=== PATIENT | female | born 1945 | race Caucasian/White ===

== ENCOUNTER 2019-01-19 11:21 | Day surgery (SDC) | payer MEDICARE ==
[~2019-01-19 11:21] MED LIST: ALBUTEROL NEB (CONC) 2.5 MG/0.5 ML INHALATION ONE; LACTATED RINGERS 1,000 ML IV SCH; LIDOCAINE 2% (PF) 20 MG/ML 5 ML VIAL INHALATION ONE; LIDOCAINE VISCOUS 300 MG/15 ML CUP MUCOUS MEM ONE; SODIUM CHLORIDE 0.9% 1,000 ML IV SCH
[2019-01-19 11:43] VITALS: TEMP 97.6
[2019-01-19] MEDS ORDERED: LIDOCAINE 1% 20 ML VIAL (10MG/ML) FOR IV START INTRADERMA ONE (11:48)
[2019-01-19] MEDS ORDERED: LACTATED RINGERS 1,000 ML IV ONE (11:48)
[2019-01-19 11:51] LABS: Glucose,Whole Blood 89 mg/dL (75-99)
[2019-01-19] MEDS ORDERED: LIDOCAINE 1% INJ 10MG/ML (20 ML MDV) ONE (12:49)
[2019-01-19] MEDS ORDERED: fentaNYL (PF) 50 MCG/ML 2 ML AMP ONE (12:49)
[2019-01-19] MEDS ORDERED: PROPOFOL 10 MG/ML 20 ML VIAL IV ONE (12:49)
[2019-01-19] MEDS ORDERED: LIDOCAINE 2% INJ 20 MG/ML INTRATRACH ONE (13:09)
--- NOTE | 2019-01-19 13:16 | P.PCN ---
Date of Procedure: 01/19/19 Preoperative Diagnosis: Shortness of breath, persistent bronchospasm and wheeze, rule out underlying lung infection/tracheal bronchitis Postoperative Diagnosis: 1 Bronchitis involving the lingular segment and the left upper lobe segments 2 tracheobronchomalacia Procedure(s) Performed: Flexible bronchoscopy, bronchioloalveolar lavage of the left upper lobe/lingular segment Anesthesia: SATISH Surgeon: Meme Mendiola Pathology: other Condition: stable Disposition: floor Description of Procedure: This procedure was done and the endoscopy room. The patient was sedated with a combination of propofol and Versed. After achieving adequate sedation flexible bronchoscope was inserted through the right nostril due to advanced into the upper airway. Examination of the posterior oropharynx, larynx epiglottis and vocal cord was all within normal limits. The vocal cords were anesthetized using 1% lidocaine and following that the bronchoscope was advanced with Doppler trachea. Examination tracheal bronchial tree was done. He was a component of severe tracheal bronchomalacia throughout the patient's airway more so in the tracheal wall and to lesser extent in the bilateral mainstem bronchi and they segment of the lower lobes. Note that the trachea was within normal limits other than severe tracheal bronchomalacia. An anatomic variation was encountered. There was no right mainstem bronchus. The right upper lobe originated from the lateral tracheal wall and was trifurcated. Then there was a bronchus intermedius and the right middle lobe and the right lower lobe was inspected and the various segments are patent and within normal limits. There are some looseness for secretions. The bronchoscope was then was moved to the left lung and the left mainstem bronchus was inspected. There was some rest or secretions and most of the. Material was originating from the lingular segment of the left upper lobe. The lingular segments are quite inflamed and erythematous. Inspection of the left upper lobe apical posterior and anterior segments was done and then the lingular segment was done. The bronchioloalveolar lavage of the lingula superior segment was done without a total of 60 mL of fluid was infused and 25 feet was suctioned back. Exam of the left lower lobe was within normal limits and they segment of the left lower lobe were all inspected. At the completion of the procedure, therapeutic it was suctioning was done and the bronchoscope was removed. The patient was transfe rred recovery in stable condition. The bronchioloalveolar lavage collected from the lingula will be sent for microbial analysis. No bedside complications. The patient tolerated the procedure well.
[2019-01-19 13:56] VITALS: BP 146/64; PULSE 87; RESP 16
== END 2019-01-19 14:28 | disposition home or self-care (01) ==
LOC: ORWHC2ENDO 11:21
PROVIDERS: ATTEND Internal Medicine Critical Care Medicine
DX: J39.8 Other specified diseases of upper respiratory tract (principal); J20.8 Acute bronchitis due to other specified organisms; J45.50 Severe persistent asthma, uncomplicated; J96.11 Chronic respiratory failure with hypoxia; J44.1 Chronic obstructive pulmonary disease with (acute) exacerbation; I13.0 Hypertensive heart and chronic kidney disease with heart failure and stage 1 through stage 4 chronic kidney disease, or unspecified chronic kidney disease; E11.22 Type 2 diabetes mellitus with diabetic chronic kidney disease; E03.9 Hypothyroidism, unspecified; N18.3 Chronic kidney disease, stage 3 (moderate); M81.0 Age-related osteoporosis without current pathological fracture; I48.91 Unspecified atrial fibrillation; I50.9 Heart failure, unspecified; H91.90 Unspecified hearing loss, unspecified ear; F41.9 Anxiety disorder, unspecified; F41.0 Panic disorder [episodic paroxysmal anxiety]; E78.5 Hyperlipidemia, unspecified; D64.9 Anemia, unspecified; E66.01 Morbid (severe) obesity due to excess calories; Z91.012 Allergy to eggs; Z88.0 Allergy status to penicillin; Z88.2 Allergy status to sulfonamides; Z91.040 Latex allergy status; Z91.041 Radiographic dye allergy status; Z87.01 Personal history of pneumonia (recurrent); Z79.890 Hormone replacement therapy; Z79.899 Other long term (current) drug therapy; Z90.710 Acquired absence of both cervix and uterus; Z68.37 Body mass index [BMI] 37.0-37.9, adult; Z90.49 Acquired absence of other specified parts of digestive tract; Z79.4 Long term (current) use of insulin
CPT/HCPCS: 94640; 87798 ×3; 87496; 87498; 87529; 87252; 87502; 87634; 87070; 87205; 87116; 87102; 87077; 87186; 87206; 31645; 31624; J2001 ×3; J3010; J2704

== ENCOUNTER 2019-03-19 11:01 | Day surgery (SDC) | payer MEDICARE ==
[2019-03-16 08:38] VITALS: BMI 38.6
[2019-03-19 11:55] VITALS: RESP 16; TEMP 97.8
[2019-03-19 12:06] LABS: Glucose,Whole Blood 75 mg/dL (75-99)
[2019-03-19] MEDS ORDERED: LIDOCAINE 2% INJ 20 MG/ML INTRATRACH ONE ×2 (12:22→12:49)
[2019-03-19] MEDS ORDERED: LIDOCAINE 1% INJ 10MG/ML (20 ML MDV) ONE (12:28)
[2019-03-19] MEDS ORDERED: PROPOFOL 10 MG/ML 20 ML VIAL IV ONE (12:28)
--- NOTE | 2019-03-19 12:58 | P.PCN ---
Date of Procedure: 03/19/19 Preoperative Diagnosis: pseudomonal pneumonia/tracheal bronchitis Postoperative Diagnosis: Pseudomonal pneumonia/tracheal bronchitis Procedure(s) Performed: Flexible bronchoscopy, therapeutic airway suctioning, bronchial lavage of the right middle lobe Anesthesia: MAC Surgeon: Meme Mendiola Estimated Blood Loss (ml): 0 Pathology: other Condition: stable Disposition: same day Operative Findings: This procedure was done in the endoscopy suite. The procedure including the po tential complication was explained to the patient length. A timeout was obtained. After achieving adequate sedation, the flexible bronchoscope was introduced through the right nostril was advanced into the upper airway. Examination of the posterior oropharynx, larynx, epiglottis, vallecula, arytenoids and the vocal cords were all within normal limits. Some limited amount of loose rest or secretions were noted and were suctioned out. A total of 2 mL of 1% lidocaine was applied to the vocal cords, and following that the bronchoscope was advanced into the upper trachea. Examination of the tracheal bronchial tree was done. There was a moderate degree of check of bronchomalacia encountered throughout the examination. There was also some sick rest or secretions creamy beige in color occupying the distal trachea and various segments of the lower lobes bilaterally and some in the right middle lobe and in the lingular segments. The underlying bronchial mucosa was quite inflamed and erythematous. No foreign bodies. No endobronchial tumors or lesions. Therapeutic airway suctioning was done. Following that, the bronchoscope was wedged into the right middle lobe and the bronchioloalveolar lavage was done. A total of 40 mL of fluid was infused and 15 mL of fluid was aspirated without any major difficulties. By the completion of the procedure, I performed a therapeutic airway suctioning with all of the respiratory secretions were suctioned out without any major difficulties. The bronchoscope was gently removed out of the airway. The patient tolerated the procedure well maintaining a pulse oxing above 90% throughout the procedure. No significant coughing was encountered. The patient was transferred recovery in stable condition pending further results.
[2019-03-19 13:25] VITALS: BP 177/89; PULSE 86
== END 2019-03-19 14:17 | disposition home or self-care (01) ==
LOC: ORWHC2ENDO 11:01
PROVIDERS: ATTEND Internal Medicine Critical Care Medicine
DX: J15.1 Pneumonia due to Pseudomonas (principal); J40 Bronchitis, not specified as acute or chronic; E11.22 Type 2 diabetes mellitus with diabetic chronic kidney disease; I13.0 Hypertensive heart and chronic kidney disease with heart failure and stage 1 through stage 4 chronic kidney disease, or unspecified chronic kidney disease; N18.3 Chronic kidney disease, stage 3 (moderate); I50.9 Heart failure, unspecified; J96.11 Chronic respiratory failure with hypoxia; J44.9 Chronic obstructive pulmonary disease, unspecified; I48.91 Unspecified atrial fibrillation; F41.9 Anxiety disorder, unspecified; H91.90 Unspecified hearing loss, unspecified ear; E66.01 Morbid (severe) obesity due to excess calories; D64.9 Anemia, unspecified; M81.0 Age-related osteoporosis without current pathological fracture; E78.5 Hyperlipidemia, unspecified; E03.9 Hypothyroidism, unspecified; Z99.81 Dependence on supplemental oxygen; Z79.899 Other long term (current) drug therapy; Z79.890 Hormone replacement therapy; Z79.4 Long term (current) use of insulin; Z79.01 Long term (current) use of anticoagulants; Z88.0 Allergy status to penicillin; Z91.041 Radiographic dye allergy status; Z91.040 Latex allergy status; Z88.2 Allergy status to sulfonamides; Z91.012 Allergy to eggs; Z90.49 Acquired absence of other specified parts of digestive tract; Z68.38 Body mass index [BMI] 38.0-38.9, adult; Z82.49 Family history of ischemic heart disease and other diseases of the circulatory system; Z83.3 Family history of diabetes mellitus
CPT/HCPCS: 94640; 87070; 87205; 31624; J2001 ×3; J2704; 87077; 87186

== ENCOUNTER 2019-03-23 11:35 | Day surgery (SDC) | payer MEDICARE ==
[2019-03-23 12:27] VITALS: TEMP 98.1
[2019-03-23 12:35] LABS: Anisocytosis Slight; Basophils % (A) 1 %; Eosinophils # (A) 0.2 k/uL (0-0.7); Eosinophils % (A) 4 %; HCT 31.3 % (34.0-46.0); HGB 9.8 gm/dL (11.4-16.0); Hypochromasia Slight; Lymphocytes # (A) 1.6 k/uL (1.0-4.8); Lymphocytes % (A) 38 %; MCH 25.3 pg (25.0-35.0); MCHC 31.3 g/dL (31.0-37.0); MCV 80.9 fL (80.0-100.0); Mean Platelet Volume 7.2; Microcytosis Slight; Monocytes # (A) 0.3 k/uL (0-1.0); Monocytes % (A) 6 %; Neutrophils # (A) 2.1 k/uL (1.3-7.7); Neutrophils % (A) 49 %; Platelet Count 176 k/uL (150-450); RBC 3.87 m/uL (3.80-5.40); RDW 17.2 % (11.5-15.5); WBC 4.3 k/uL (3.8-10.6)
[2019-03-23 12:42] LABS: INR 1.1 (<1.2)
[2019-03-23] MEDS ORDERED: LIDOCAINE 1% INJ 10MG/ML (20 ML MDV) SQ ONE (13:22)
[2019-03-23 13:59] VITALS: BP 162/72; PULSE 96; RESP 16
--- NOTE | 2019-03-23 15:14 | IR ---
EXAMINATION TYPE: IR cvc insert >=5 years DATE OF EXAM: 03/23/2019 COMPARISON: NONE CLINICAL HISTORY: Infection Needs long-term intravenous access for antibiotics. PROCEDURE: Hand hygiene obtained with soap and water and alcohol-based hand rub. After informed consent, the skin overlying the left brachial vein was localized with ultrasound and n oted to be compressible and patent. An ultrasound image was obtained and submitted on the patient's chart. The overlying skin was prepped and draped and Lidocaine was used for local anesthesia. A ski n cari was made with a scalpel. Access was gained to the vein under ultrasound guidance with a 21 ga uge needle and a 0.018 inch wire was advanced. Access site was dilated with Peel-Away sheath and cat heter tailored to the appropriate length and advanced such that the distal tip is at the cavoatrial j unction. Spot image was obtained verifying placement. Catheter was fixed to the skin and a sterile dressing was placed following hemostasis. Catheter was aspirated and flushed with saline. Patient w as discharged in stable condition without complication.Maximal barrier technique is utilized. Ultras ound image is documented on the chart. Ultrasound used with sterile technique. Fluoro time and fluoroscopic images submitted to document procedure: 63 intraoperative images, 0.2 mi nutes fluoroscopy time IMPRESSION: STATUS POST ULTRASOUND AND FLUOROSCOPIC GUIDED PICC LINE PLACEMENT, READY FOR USE. THIS PROCEDURE WAS PERFORMED BY THE UNDERSIGNED.
== END 2019-03-23 14:23 | disposition home health service (06) ==
LOC: CATHCVL 11:35
PROVIDERS: ATTEND Radiology Diagnostic Radiology
DX: B96.5 Pseudomonas (aeruginosa) (mallei) (pseudomallei) as the cause of diseases classified elsewhere (principal); J44.1 Chronic obstructive pulmonary disease with (acute) exacerbation; J96.11 Chronic respiratory failure with hypoxia; E11.65 Type 2 diabetes mellitus with hyperglycemia; E11.22 Type 2 diabetes mellitus with diabetic chronic kidney disease; M18.0 Bilateral primary osteoarthritis of first carpometacarpal joints; E78.5 Hyperlipidemia, unspecified; E03.9 Hypothyroidism, unspecified; D64.9 Anemia, unspecified; R60.0 Localized edema; F41.9 Anxiety disorder, unspecified; N18.3 Chronic kidney disease, stage 3 (moderate); I50.9 Heart failure, unspecified; E66.9 Obesity, unspecified; Z68.36 Body mass index [BMI] 36.0-36.9, adult; Z91.012 Allergy to eggs; Z88.0 Allergy status to penicillin; Z88.2 Allergy status to sulfonamides; Z79.899 Other long term (current) drug therapy; Z79.83 Long term (current) use of bisphosphonates; Z79.51 Long term (current) use of inhaled steroids; Z79.4 Long term (current) use of insulin; Z79.890 Hormone replacement therapy; Z79.891 Long term (current) use of opiate analgesic; Z79.01 Long term (current) use of anticoagulants; Z90.49 Acquired absence of other specified parts of digestive tract; Z98.890 Other specified postprocedural states; Z99.81 Dependence on supplemental oxygen; Z82.49 Family history of ischemic heart disease and other diseases of the circulatory system; Z83.3 Family history of diabetes mellitus
CPT/HCPCS: 36573; 80051; 82565; 84520; 85025; 85610; C1751; C1769; J2001

== ENCOUNTER 2019-04-09 14:01 | Emergency (ER) | payer MEDICARE ==
[2019-04-09 14:55] LABS: Anisocytosis Slight; Basophils # (A) 0.1 k/uL (0-0.2); Basophils % (A) 1 %; Eosinophils # (A) 0.1 k/uL (0-0.7); Eosinophils % (A) 2 %; HCT 34.6 % (34.0-46.0); HGB 10.8 gm/dL (11.4-16.0); Hypochromasia Slight; Lymphocytes # (A) 2.4 k/uL (1.0-4.8); Lymphocytes % (A) 40 %; MCH 24.7 pg (25.0-35.0); MCHC 31.1 g/dL (31.0-37.0); MCV 79.4 fL (80.0-100.0); Mean Platelet Volume 7.4; Microcytosis Slight; Monocytes # (A) 0.5 k/uL (0-1.0); Monocytes % (A) 8 %; Neutrophils # (A) 2.8 k/uL (1.3-7.7); Neutrophils % (A) 46 %; Platelet Count 218 k/uL (150-450); RBC 4.35 m/uL (3.80-5.40); RDW 16.7 % (11.5-15.5)
[2019-04-09 15:02] LABS: Calcium 9.3 mg/dL (8.4-10.2); Potassium 4.8 mmol/L (3.5-5.1); Total Bilirubin 0.4 mg/dL (0.2-1.3); Total Protein 7.7 g/dL (6.3-8.2)
--- NOTE | 2019-04-09 15:48 | US ---
EXAMINATION TYPE: US venous doppler duplex UE LT DATE OF EXAM: 04/09/2019 COMPARISON: NONE CLINICAL HISTORY: 73-year-old female ensure no blood clot near PICC line. SIDE PERFORMED: Left TECHNIQUE: Grayscale, color doppler, spectral doppler imaging performed of the deep veins of the upp er left upper extremity. FINDINGS: Sonography notes: PICC line is in brachial vein per report dated 03/23/2019. There is no flow seen ar ound PICC line in upper brachial, there is superficial vessel in axilla with PICC line seen. There is flow in the subclavian around PICC line. The imaged basilic and cephalic are very small. Left Arm: Positive for DVT IMPRESSION: 1. PICC line is visualized. Exam positive for DVT around the PICC line at the level of the upper brac hial vein. The subclavian vein is patent. 2. Diminutive cephalic and basilic veins.
--- NOTE | 2019-04-09 16:14 | ED ---
Skin/Abscess/FB HPI - General Source: patient, family Mode of arrival: ambulatory Limitations: no limitations <Jade Rehman - Last Filed: 04/09/19 16:34> <Alvaro Hinojosa - Last Filed: 04/11/19 13:59> - General Chief complaint: Skin/Abscess/Foreign Body Stated complaint: poss pick line infection Time Seen by Provider: 04/09/19 14:14 - History of Present Illness Initial comments: 73-year-old female presenting today for chief complaint of redness at the area of the pelvic line. Patient states she was recently treated for a lung infection by Dr. Mendiola with outpatient cefepime. Patient states she has completed her antibiotic course of the last dose on Tuesday. Patient states she is scheduled for removal this week. Patient states that she noticed some redness at the area of the PICC line with some slight tenderness. Patient states she was concerned as possible developing infection and presents to the emergency department today for evaluation. Patient denies any fevers chest pain shortness of breath. Patient states she does still have a slight cough denies THIS. Patient denies any swelling of the extremity. Remaining review of system negative upon arrival patient appears well no signs of acute distress she is afebrile well-appearing. Patient on coumadin. (Jade Rehman) - Related Data Home Medications Medication Instructions Recorded Confirmed ALPRAZolam [Xanax] 0.5 mg PO TID 01/16/19 03/23/19 Albuterol Nebulized [Ventolin 1 applic INHALATION QID PRN 01/16/19 03/23/19 Nebulized] Alendronate Sodium [Fosamax] 70 mg PO FR 01/16/19 03/23/19 Citalopram Hydrobromide 40 mg PO QAM 01/16/19 03/23/19 [Citalopram HBr] Diltiazem HCl [Diltiazem HCl 24Hr 180 mg PO QAM 01/16/19 03/23/19 ER] Furosemide [Lasix] 20 mg PO QAM 01/16/19 03/23/19 Insulin Glargine [Lantus] 30 unit SQ HS 01/16/19 03/23/19 Ipratropium Nebulized [Atrovent 1 applic IH TID 01/16/19 03/23/19 Nebulized 0.2 MG/ML] Levothyroxine Sodium [Synthroid] 50 mg PO QAM 01/16/19 03/23/19 Losartan [Cozaar] 50 mg PO QAM 01/16/19 03/23/19 Lovastatin [Mevacor] 40 mg PO DAILY 01/16/19 03/23/19 Potassium Chloride [Klor-Con 20] 20 meq PO BID 01/16/19 03/23/19 Warfarin [Coumadin] 5 mg PO HS 01/16/19 03/23/19 Zafirlukast [Accolate] 20 mg PO BID 01/16/19 03/23/19 traMADol HCL 50 mg PO TID PRN 01/16/19 03/23/19 Insulin Regular, Human [NovoLIN R] 0 unit SQ ACHS PRN 03/16/19 03/23/19 Allergies Allergy/AdvReac Type Severity Reaction Status Date / Time Iodinated Contrast Media Allergy Unknown, Verified 04/09/19 14:06 POOR RENAL FUNCTIONS latex Allergy Rash/Hives Verified 04/09/19 14:06 Penicillins Allergy Rash/Hives Verified 04/09/19 14:06 Review of Systems ROS Other: All systems not noted in ROS Statement are negative. <Jade Rehman - Last Filed: 04/09/19 16:34> ROS Other: All systems not noted in ROS Statement are negative. <Alvaro Hinojosa - Last Filed: 04/11/19 13:59> ROS Statement: Those systems with pertinent positive or pertinent negative responses have been documented in the HPI. Past Medical History Past Medical History: Atrial Fibrillation, Asthma, Heart Failure, COPD, Diabetes Mellitus, GERD/Reflux, Hearing Disorder / Deafness, Hypertension, Osteoarthritis (OA), Pneumonia, Renal Disease, Thyroid Disorder Additional Past Medical History / Comment(s): HOLE IN RIGHT RETINA. hiatal hernia, anemia, SOB, coughing, wheezing, uses oxygen at 2 L NC continuously History of Any Multi-Drug Resistant Organisms: None Reported Past Surgical History: Cholecystectomy, Hysterectomy Additional Past Surgical History / Comment(s): CATARACT REMOVAL LEFT EYE. Past Anesthesia/Blood Transfusion Reactions: No Reported Reaction Past Psychological History: Anxiety, Panic Disorder Smoking Status: Never smoker - Past Family History Mother Family Medical History: No Reported History <Jade Rehman - Last Filed: 04/09/19 16:34> General Exam Limitations: no limitations <Jade Rehman - Last Filed: 04/09/19 16:34> - General Exam Comments Initial Comments: General: The patient is awake and alert, in no distress Eye: +3 mm pupils are equal, round and reactive to light, extra-ocular movements are intact. No nystagmus. There is normal conjunctiva bilaterally. No signs of icterus. Ears, nose, mouth and throat: There are moist mucous membranes and no oral lesions. Neck: The neck is supple, there is no tenderness or JVD. Cardiovascular: There is a regular rate and rhythm. No murmur, rub or gallop is appreciated. Respiratory: Lungs are clear to auscultation, respirations are non-labored, breath sounds are equal. No wheezes, stridor, rales, or rhonchi. Gastrointestinal: Soft, non-distended, non-tender abdomen without masses or organomegaly noted. There is no rebound or guarding present. Musculoskeletal: Normal ROM, no tenderness. Strength 5/5. Sensation intact. Radial pulses equal bilaterally 2+. Neurological: A&O x 3. CN II-XII intact grossly, There are no obvious motor or sensory deficits. Coordination appears grossly intact. Speech is normal. Skin: Skin is warm and dry and no rashes. PICC line in the left UE mid humerus, there is a small dot of redness <1cm near the 11oclock position of the picc line entrance into the body. No significant surrounding redness, no swelling. No hand swelling. Psychiatric: Cooperative, appropriate mood & affect, normal judgment. (Jade Rehman) Course <Jade Rehman - Last Filed: 04/09/19 16:34> Vital Signs 04/09/19 04/09/19 14:03 17:58 Temperature 99.1 F 98.3 F Pulse Rate 83 79 Respiratory 16 17 Rate Blood Pressure 168/78 149/89 O2 Sat by Pulse 95 97 Oximetry - Reevaluation(s) Reevaluation #1: Sign out to Dr. Hinojosa who evaluated patient. 04/09/19 16:34 (Jade Rehman) Medical Decision Making - Lab Data Result diagrams: 04/09/19 14:44 04/09/19 14:44 <Jade Rehman - Last Filed: 04/09/19 16:34> - Lab Data Result diagrams: 04/09/19 14:44 04/09/19 14:44 <Alvaro Hinojosa - Last Filed: 04/11/19 13:59> - Medical Decision Making 73-year-old female with upper extremity DVT adjacent to PICC line. Patient has completed IV antibiotics which were administered through the PICC line. She is scheduled to have this removed tomorrow. Given the DVT and that the patient's INR is subtherapeutic at 1.1 I discussed case with Dr. Brooks, covering for vascular surgery. She recommends pulling the PICC line, given a dose of Lovenox and having the patient's INR checked in 48 hours. Patient is given 100 mg of Lovenox in the emergency department she will have her INR checked on Tuesday which is 2 days from now. She will return with worsening pain or swelling in the arm or the development of dyspnea or chest pain. (Alvaro Hinojosa) - Lab Data Lab Results 04/09/19 04/09/19 04/09/19 Range/Units 14:44 14:44 14:44 WBC 6.0 (3.8-10.6) k/uL RBC 4.35 (3.80-5.40) m/uL Hgb 10.8 L (11.4-16.0) gm/dL Hct 34.6 (34.0-46.0) % MCV 79.4 L (80.0-100.0) fL MCH 24.7 L (25.0-35.0) pg MCHC 31.1 (31.0-37.0) g/dL RDW 16.7 H (11.5-15.5) % Plt Count 218 (150-450) k/uL Neutrophils % 46 % Lymphocytes % 40 % Monocytes % 8 % Eosinophils % 2 % Basophils % 1 % Neutrophils # 2.8 (1.3-7.7) k/uL Lymphocytes # 2.4 (1.0-4.8) k/uL Monocytes # 0.5 (0-1.0) k/uL Eosinophils # 0.1 (0-0.7) k/uL Basophils # 0.1 (0-0.2) k/uL Hypochromasia Slight Anisocytosis Slight Microcytosis Slight PT (9.0-12.0) sec INR (<1.2) APTT (22.0-30.0) sec Sodium 138 (137-145) mmol/L Potassium 4.8 (3.5-5.1) mmol/L Chloride 103 (98-107) mmol/L Carbon Dioxide 28 (22-30) mmol/L Anion Gap 7 mmol/L BUN 25 H (7-17) mg/dL Creatinine 0.97 (0.52-1.04) mg/dL Est GFR (CKD-EPI)AfAm 68 (>60 ml/min/1.73 sqM) Est GFR (CKD-EPI)NonAf 59 (>60 ml/min/1.73 sqM) Glucose 75 (74-99) mg/dL Plasma Lactic Acid Yasir 0.7 (0.7-2.0) mmol/L Calcium 9.3 (8.4-10.2) mg/dL Total Bilirubin 0.4 (0.2-1.3) mg/dL AST 28 (14-36) U/L ALT 14 (4-34) U/L Alkaline Phosphatase 89 (38-126) U/L Total Protein 7.7 (6.3-8.2) g/dL Albumin 4.0 (3.5-5.0) g/dL 04/09/19 Range/Units 14:44 WBC (3.8-10.6) k/uL RBC (3.80-5.40) m/uL Hgb (11.4-16.0) gm/dL Hct (34.0-46.0) % MCV (80.0-100.0) fL MCH (25.0-35.0) pg MCHC (31.0-37.0) g/dL RDW (11.5-15.5) % Plt Count (150-450) k/uL Neutrophils % % Lymphocytes % % Monocytes % % Eosinophils % % Basophils % % Neutrophils # (1.3-7.7) k/uL Lymphocytes # (1.0-4.8) k/uL Monocytes # (0-1.0) k/uL Eosinophils # (0-0.7) k/uL Basophils # (0-0.2) k/uL Hypochromasia Anisocytosis Microcytosis PT 11.6 (9.0-12.0) sec INR 1.1 (<1.2) APTT 22.2 (22.0-30.0) sec Sodium (137-145) mmol/L Potassium (3.5-5.1) mmol/L Chloride (98-107) mmol/L Carbon Dioxide (22-30) mmol/L Anion Gap mmol/L BUN (7-17) mg/dL Creatinine (0.52-1.04) mg/dL Est GFR (CKD-EPI)AfAm (>60 ml/min/1.73 sqM) Est GFR (CKD-EPI)NonAf (>60 ml/min/1.73 sqM) Glucose (74-99) mg/dL Plasma Lactic Acid Yasir (0.7-2.0) mmol/L Calcium (8.4-10.2) mg/dL Total Bilirubin (0.2-1.3) mg/dL AST (14-36) U/L ALT (4-34) U/L Alkaline Phosphatase (38-126) U/L Total Protein (6.3-8.2) g/dL Albumin (3.5-5.0) g/dL Disposition <Jade Rehman L - Last Filed: 04/09/19 16:34> Is patient prescribed a controlled substance at d/c from ED?: No Time of Disposition: 16:43 <Alvaro Hinojosa - Last Filed: 04/11/19 13:59> Clinical Impression: DVT of upper extremity (deep vein thrombosis), Subtherapeutic international normalized ratio (INR) Disposition: HOME SELF-CARE Condition: Fair Instructions (If sedation given, give patient instructions): Deep Vein Thrombosis (ED) Additional Instructions: Please have INR checked in 48 hours Referrals: Verona Medrano MD [Primary Care Provider] - 1-2 days Whit Brooks DO [STAFF PHYSICIAN] - 1-2 days
[2019-04-09 16:29] LABS: INR 1.1 (<1.2); Partial Thromboplastin Time 22.2 sec (22.0-30.0); Prothrombin Time 11.6 sec (9.0-12.0)
[2019-04-09] MEDS ORDERED: HEPARIN SODIUM,PORCINE 5,000 UNIT/ML 1 ML VIAL IV PRN (16:34)
[2019-04-09] MEDS ORDERED: HEPARIN SODIUM,PORCINE 10,000 UNIT/ML 1 ML VIAL IV ONE (16:34)
[2019-04-09] MEDS ORDERED: ENOXAPARIN 100 MG/ML SYRINGE SQ STA (16:38)
[2019-04-09] MEDS ORDERED: HEPARIN SOD,PORK IN 0.45% NACL 25,000 UNIT in 0.45% NACL 1 250ML.BAG IV SCH (16:45)
[2019-04-09 18:00] VITALS: BP 149/89; PULSE 79; RESP 17; TEMP 98.3
== END 2019-04-09 18:06 | disposition home or self-care (01) ==
LOC: EC 14:01
DX: I82.622 Acute embolism and thrombosis of deep veins of left upper extremity (principal); R79.1 Abnormal coagulation profile; I48.91 Unspecified atrial fibrillation; J44.9 Chronic obstructive pulmonary disease, unspecified; I11.0 Hypertensive heart disease with heart failure; I50.9 Heart failure, unspecified; E07.9 Disorder of thyroid, unspecified; F41.0 Panic disorder [episodic paroxysmal anxiety]; Z79.01 Long term (current) use of anticoagulants; Z79.890 Hormone replacement therapy; Z79.4 Long term (current) use of insulin; Z79.899 Other long term (current) drug therapy; Z91.048 Other nonmedicinal substance allergy status; Z91.040 Latex allergy status; Z88.0 Allergy status to penicillin
CPT/HCPCS: 36415; 80053; 83605; 85025; 85610; 85730; 87040; 93971; 99284; 96372; J1650

== ENCOUNTER 2019-04-20 19:06 | Emergency (ER) | payer MEDICARE ==
[2019-04-20 19:24] VITALS: RESP 18; TEMP 98.2
[2019-04-20] MEDS ORDERED: ACETAMINOPHEN TAB 325 MG TAB PO STA (19:36)
[2019-04-20] MEDS ORDERED: DIPH,PERTUS(ACELL)TETVAC-LF 0.5 ML VIAL IM ONE (19:36)
--- NOTE | 2019-04-20 20:20 | ED ---
General Adult HPI - General Source: patient, RN notes reviewed Mode of arrival: wheelchair Limitations: no limitations <Eder Villanueva - Last Filed: 04/20/19 21:15> <Alvaro Patel - Last Filed: 04/20/19 21:28> - General Chief complaint: Wound/Laceration Stated complaint: foot lac Time Seen by Provider: 04/20/19 19:25 - History of Present Illness Initial comments: 73-year-old female with a complicated past medical history currently on Coumadin for atrial fibrillation presents to the emergency department for a chief complaint of right great toe injury. Patient states she dropped a wooden stool on the toe. States it would not stop bleeding. Patient is not up-to-date on tetanus. Denies any other injuries. States it is painful to walk on the toe.Patient has no other complaints at this time including shortness of breath, chest pain, abdominal pain, nausea or vomiting, headache, or visual changes. (Eder Villanueva) - Related Data Home Medications Medication Instructions Recorded Confirmed ALPRAZolam [Xanax] 0.5 mg PO TID 01/16/19 03/23/19 Albuterol Nebulized [Ventolin 1 applic INHALATION QID PRN 01/16/19 03/23/19 Nebulized] Alendronate Sodium [Fosamax] 70 mg PO FR 01/16/19 03/23/19 Citalopram Hydrobromide 40 mg PO QAM 01/16/19 03/23/19 [Citalopram HBr] Diltiazem HCl [Diltiazem HCl 24Hr 180 mg PO QAM 01/16/19 03/23/19 ER] Furosemide [Lasix] 20 mg PO QAM 01/16/19 03/23/19 Insulin Glargine [Lantus] 30 unit SQ HS 01/16/19 03/23/19 Ipratropium Nebulized [Atrovent 1 applic IH TID 01/16/19 03/23/19 Nebulized 0.2 MG/ML] Levothyroxine Sodium [Synthroid] 50 mg PO QAM 01/16/19 03/23/19 Losartan [Cozaar] 50 mg PO QAM 01/16/19 03/23/19 Lovastatin [Mevacor] 40 mg PO DAILY 01/16/19 03/23/19 Potassium Chloride [Klor-Con 20] 20 meq PO BID 01/16/19 03/23/19 Warfarin [Coumadin] 5 mg PO HS 01/16/19 03/23/19 Zafirlukast [Accolate] 20 mg PO BID 01/16/19 03/23/19 traMADol HCL 50 mg PO TID PRN 01/16/19 03/23/19 Insulin Regular, Human [NovoLIN R] 0 unit SQ ACHS PRN 03/16/19 03/23/19 Previous Rx's Medication Instructions Recorded Cephalexin [Keflex] 500 mg PO Q6HR 7 Days #28 cap 04/20/19 Allergies Allergy/AdvReac Type Severity Reaction Status Date / Time Iodinated Contrast Media Allergy Unknown, Verified 04/20/19 19:24 POOR RENAL FUNCTIONS latex Allergy Rash/Hives Verified 04/20/19 19:24 Penicillins Allergy Rash/Hives Verified 04/20/19 19:24 Review of Systems ROS Other: All systems not noted in ROS Statement are negative. <Eder Villanueva - Last Filed: 04/20/19 21:15> ROS Other: All systems not noted in ROS Statement are negative. <Alvaro Patel - Last Filed: 04/20/19 21:28> ROS Statement: Those systems with pertinent positive or pertinent negative responses have been documented in the HPI. Past Medical History Past Medical History: Atrial Fibrillation, Asthma, Heart Failure, COPD, Diabetes Mellitus, GERD/Reflux, Hearing Disorder / Deafness, Hypertension, Osteoarthritis (OA), Pneumonia, Renal Disease, Thyroid Disorder Additional Past Medical History / Comment(s): HOLE IN RIGHT RETINA. hiatal hernia, anemia, SOB, coughing, wheezing, uses oxygen at 2 L NC continuously History of Any Multi-Drug Resistant Organisms: None Reported Past Surgical History: Cholecystectomy, Hysterectomy Additional Past Surgical History / Comment(s): CATARACT REMOVAL LEFT EYE. Past Anesthesia/Blood Transfusion Reactions: No Reported Reaction Past Psychological History: Anxiety, Panic Disorder Smoking Status: Never smoker - Past Family History Mother Family Medical History: No Reported History <Eder Villanueva - Last Filed: 04/20/19 21:15> General Exam Limitations: no limitations General appearance: alert, in no apparent distress Head exam: Present: atraumatic, normocephalic, normal inspection Eye exam: Present: normal appearance, PERRL, EOMI. Absent: scleral icterus, c onjunctival injection, periorbital swelling ENT exam: Present: normal exam, mucous membranes moist Neck exam: Present: normal inspection, full ROM. Absent: tenderness, meningismus, lymphadenopathy Respiratory exam: Present: normal lung sounds bilaterally. Absent: respiratory distress, wheezes, rales, rhonchi, stridor Cardiovascular Exam: Present: regular rate, normal rhythm, normal heart sounds. Absent: systolic murmur, diastolic murmur, rubs, gallop, clicks Extremities exam: Present: other (Patient has avulsion of the proximal nail fold of the right great toe. nail is still attached to the nailbed along the lateral folds. There is no noted subungual hemtoma) <Eder Villanueva - Last Filed: 04/20/19 21:15> Course <Alvaro Patel - Last Filed: 04/20/19 21:28> Vital Signs 04/20/19 04/20/19 19:21 21:17 Temperature 98.2 F Pulse Rate 79 60 Respiratory 18 18 Rate Blood Pressure 181/72 180/82 O2 Sat by Pulse 97 98 Oximetry - Reevaluation(s) Reevaluation #1: 04/20/19 21:28 PA supervision: I proceeded [id number] evaluation the patient she presents with complaints of right great toe pain after being struck by a stool fell onto it. She did sustain a fracture of the distal phalanx also evulsion of the toenail from the base. Due to the circumstances and the patient is on Coumadin female at this time we'll not be removed. It appears be more judicious to leave it is a partial splint to be removed at a later date if it does not spontaneously detach. (Alvaro Patel) Medical Decision Making <Eder Villanueva - Last Filed: 04/20/19 21:15> - Medical Decision Making 73-year-old female presents to the emergency department for a chief complaint of right toe injury. Patient dropped a stool on her toe. Patient did have avulsion of the proximal fold of the great toenail. However toe is attached laterally. Bleeding is controlled at this time. X-ray showed an acute minimally displaced fracture of the distal aspect of the first distal phalanx. This was repeated thoroughly with a liter of saline irrigation. Dr. Patel also visualized the toe. At this time we do not recommend removing the toe given fracture and patient being on Coumadin. She denies any other bleeding. The toe was wrapped with a dressing and patient was given a fracture shoe. I did discuss risk of falls with fracture shoe and to remove shoe if she feels she may trip. She will follow up with orthopedics. She was given Keflex and updated on tetanus. She was warned that she will likely lose that toenail. She did request a breathing treatment before she left home as she usually gets these at home. Patient is also noted to be hypertensive and is treated for hypertension. She is asymmetric at this time and will follow up with her doctor for this. (Eder Villanueva) Disposition Is patient prescribed a controlled substance at d/c from ED?: No Time of Disposition: 21:19 <Eder Villanueva - Last Filed: 04/20/19 21:15> <Alvaro Patel - Last Filed: 04/20/19 21:28> Clinical Impression: Fracture of toe, Nail avulsion Disposition: HOME SELF-CARE Condition: Good Instructions (If sedation given, give patient instructions): Toe Fracture (ED), Nail Avulsion (ED) Additional Instructions: Please keep the area clean. Monitor for signs of infection and return if these occur. Take Keflex as directed. Follow-up with primary care and orthopedics in one to 2 days. Prescriptions: Cephalexin [Keflex] 500 mg PO Q6HR 7 Days #28 cap Referrals: Verona Medrano MD [Primary Care Provider] - 1-2 days Thomas Guerrier DO [Doctor of Osteopathic Medicine] - 1-2 days
--- NOTE | 2019-04-20 20:44 | XR ---
EXAMINATION TYPE: XR toes RT DATE OF EXAM: 04/20/2019 COMPARISON: NONE HISTORY: Stubbing injury with pain. TECHNIQUE: 3 views right first toe are acquired. FINDINGS: Demineralization is present which is noted to lower radiographic sensitivity. There is acut e minimally displaced oblique fracture through the distal aspect of the first distal phalanx. Mild na rrowing first interphalangeal joint. Lateral image shows more comminuted minimally displaced fracture . IMPRESSION: Acute minimally displaced fracture distal aspect of first distal phalanx. (Initial encounter closed type posttraumatic fracture)
[2019-04-20] MEDS ORDERED: CEPHALEXIN 500MG STARTER PACK 4 CAP BTL PO STA (20:51)
[2019-04-20] MEDS ORDERED: SODIUM CHLORIDE 0.9% IRRIG 1,000 ML BTL IRRIGATION ONE (20:52)
[2019-04-20] MEDS ORDERED: IPRATROPIUM-ALBUTEROL 3 ML NEB INHALATION STA (21:07)
[2019-04-20 21:17] VITALS: BP 180/82
[2019-04-20 21:47] VITALS: PULSE 76
== END 2019-04-20 22:08 | disposition home or self-care (01) ==
LOC: EC 19:06
DX: S92.421B Displaced fracture of distal phalanx of right great toe, initial encounter for open fracture (principal); I11.0 Hypertensive heart disease with heart failure; I48.91 Unspecified atrial fibrillation; J44.9 Chronic obstructive pulmonary disease, unspecified; I50.9 Heart failure, unspecified; E11.9 Type 2 diabetes mellitus without complications; H91.90 Unspecified hearing loss, unspecified ear; E07.9 Disorder of thyroid, unspecified; F41.0 Panic disorder [episodic paroxysmal anxiety]; Z88.0 Allergy status to penicillin; Z91.040 Latex allergy status; Z91.041 Radiographic dye allergy status; Z79.01 Long term (current) use of anticoagulants; Z79.4 Long term (current) use of insulin; Z79.890 Hormone replacement therapy; Z79.899 Other long term (current) drug therapy; Z87.01 Personal history of pneumonia (recurrent); Z99.81 Dependence on supplemental oxygen; Z23 Encounter for immunization; W20.8XXA Other cause of strike by thrown, projected or falling object, initial encounter
CPT/HCPCS: 90471; 90715; 94640; 99283

== ENCOUNTER 2019-04-26 20:51 | Inpatient (IN) | payer MEDICARE ==
[2019-04-26] MEDS ORDERED: IPRATROPIUM-ALBUTEROL 3 ML NEB INHALATION STA ×2 (21:06→22:34)
--- NOTE | 2019-04-26 21:06 | ED ---
SOB HPI - General Chief Complaint: Shortness of Breath Stated Complaint: SOB Time Seen by Provider: 04/26/19 21:06 Source: patient, RN notes reviewed, old records reviewed Mode of arrival: wheelchair Limitations: no limitations - History of Present Illness Initial Comments: This is a [place] 3-year-old female here for severe shortness of breath patient has significant cough and congestion significant difficulty breathing she is on home O2 secondary to pulmonary fibrosis and COPD she is also pulmonology doctor today but has not seen an appointment sometime. Symptoms significantly worsen today with shortness of breath started about 2 days prior she has been home medications with no help with symptoms. Denies chest pain and no fevers. Does have increased cough congestion and increased exertional shortness of breath and dyspnea MD Complaint: shortness of breath, cough, pain with inspiration -: days(s) Severity: moderate Severity scale (1-10): 7 Quality: aching Consistency: constant Improves With: oxygen, rest, bronchodilators, upright position Worsens With: exertion, movement Known History Of: COPD Context: recent URI Associated Symptoms: pain with inspiration, cough, sputum production Treatments Prior to Arrival: none - Related Data Home Medications Medication Instructions Recorded Confirmed ALPRAZolam [Xanax] 0.5 mg PO TID 01/16/19 03/23/19 Albuterol Nebulized [Ventolin 1 applic INHALATION QID PRN 01/16/19 03/23/19 Nebulized] Alendronate Sodium [Fosamax] 70 mg PO FR 01/16/19 03/23/19 Citalopram Hydrobromide 40 mg PO QAM 01/16/19 03/23/19 [Citalopram HBr] Diltiazem HCl [Diltiazem HCl 24Hr 180 mg PO QAM 01/16/19 03/23/19 ER] Furosemide [Lasix] 20 mg PO QAM 01/16/19 03/23/19 Insulin Glargine [Lantus] 30 unit SQ HS 01/16/19 03/23/19 Ipratropium Nebulized [Atrovent 1 applic IH TID 01/16/19 03/23/19 Nebulized 0.2 MG/ML] Levothyroxine Sodium [Synthroid] 50 mg PO QAM 01/16/19 03/23/19 Losartan [Cozaar] 50 mg PO QAM 01/16/19 03/23/19 Lovastatin [Mevacor] 40 mg PO DAILY 01/16/19 03/23/19 Potassium Chloride [Klor-Con 20] 20 meq PO BID 01/16/19 03/23/19 Warfarin [Coumadin] 5 mg PO HS 01/16/19 03/23/19 Zafirlukast [Accolate] 20 mg PO BID 01/16/19 03/23/19 traMADol HCL 50 mg PO TID PRN 01/16/19 03/23/19 Insulin Regular, Human [NovoLIN R] 0 unit SQ ACHS PRN 03/16/19 03/23/19 Previous Rx's Medication Instructions Recorded Cephalexin [Keflex] 500 mg PO Q6HR 7 Days #28 cap 04/20/19 Allergies Allergy/AdvReac Type Severity Reaction Status Date / Time Iodinated Contrast Media Allergy Unknown, Verified 04/26/19 20:59 POOR RENAL FUNCTIONS latex Allergy Rash/Hives Verified 04/26/19 20:59 Penicillins Allergy Rash/Hives Verified 04/26/19 20:59 Review of Systems ROS Statement: Those systems with pertinent positive or pertinent negative responses have been documented in the HPI. ROS Other: All systems not noted in ROS Statement are negative. Past Medical History Past Medical History: Atrial Fibrillation, Asthma, Heart Failure, COPD, Diabetes Mellitus, GERD/Reflux, Hearing Disorder / Deafness, Hypertension, Osteoarthritis (OA), Pneumonia, Renal Disease, Thyroid Disorder Additional Past Medical History / Comment(s): HOLE IN RIGHT RETINA. hiatal hernia, anemia, SOB, coughing, wheezing, uses oxygen at 2 L NC continuously History of Any Multi-Drug Resistant Organisms: None Reported Past Surgical History: Cholecystectomy, Hysterectomy Additional Past Surgical History / Comment(s): CATARACT REMOVAL LEFT EYE. Past Anesthesia/Blood Transfusion Reactions: No Reported Reaction Past Psychological History: Anxiety, Panic Disorder Smoking Status: Never smoker - Past Family History Mother Family Medical History: No Reported History General Exam Limitations: no limitations General appearance: alert, in no apparent distress, anxious Head exam: Present: atraumatic, normocephalic, normal inspection Eye exam: Present: normal appearance, PERRL, EOMI. Absent: scleral icterus, conjunctival injection, periorbital swelling ENT exam: Present: normal exam, mucous membranes moist Neck exam: Present: normal inspection. Absent: tenderness, meningismus, lymp hadenopathy Respiratory exam: Present: respiratory distress, wheezes, accessory muscle use, decreased breath sounds, prolonged expiratory. Absent: rales, rhonchi, stridor Cardiovascular Exam: Present: regular rate, normal rhythm, normal heart sounds. Absent: systolic murmur, diastolic murmur, rubs, gallop, clicks GI/Abdominal exam: Present: soft, normal bowel sounds. Absent: distended, tenderness, guarding, rebound, rigid Extremities exam: Present: normal inspection, full ROM, normal capillary refill. Absent: tenderness, pedal edema, joint swelling, calf tenderness Back exam: Present: normal inspection Neurological exam: Present: alert, oriented X3, CN II-XII intact Psychiatric exam: Present: normal affect, normal mood Skin exam: Present: warm, dry, intact, normal color. Absent: rash Course Vital Signs 04/26/19 04/26/19 04/26/19 20:56 21:28 21:36 Temperature 99.9 F H Pulse Rate 94 89 87 Respiratory 20 Rate Blood Pressure 168/61 O2 Sat by Pulse 94 L Oximetry - Reevaluation(s) Reevaluation #1: 04/26/19 23:00 Medical record is reviewed Reevaluation #2: 04/26/19 23:00 Patient has no current improvement of breathing treatment Reevaluation #3: 04/26/19 23:00 Patient family for results and updated, questions answered - Consultations Consultation #1: Spoke with [facility] were agreeable for admission Medical Decision Making - Medical Decision Making 9-year-old female into ER with exacerbation of chronic bronchitis and fibrosis were left for pulmonary resuscitation breathing treatments, supplemental O2 - Lab Data Result diagrams: 04/26/19 19:57 04/26/19 19:57 Lab Results 04/26/19 04/26/19 04/26/19 Range/Units 19:57 19:57 19:57 WBC 13.3 H (3.8-10.6) k/uL RBC 3.93 (3.80-5.40) m/uL Hgb 10.0 L (11.4-16.0) gm/dL Hct 31.7 L (34.0-46.0) % MCV 80.7 (80.0-100.0) fL MCH 25.4 (25.0-35.0) pg MCHC 31.5 (31.0-37.0) g/dL RDW 16.8 H (11.5-15.5) % Plt Count 171 (150-450) k/uL Neutrophils % 71 % Lymphocytes % 21 % Monocytes % 5 % Eosinophils % 1 % Basophils % 0 % Neutrophils # 9.5 H (1.3-7.7) k/uL Lymphocytes # 2.8 (1.0-4.8) k/uL Monocytes # 0.7 (0-1.0) k/uL Eosinophils # 0.1 (0-0.7) k/uL Basophils # 0.0 (0-0.2) k/uL Anisocytosis Slight PT 12.6 H (9.0-12.0) sec INR 1.3 H (<1.2) APTT 31.4 H (22.0-30.0) sec Sodium 135 L (137-145) mmol/L Potassium 4.8 (3.5-5.1) mmol/L Chloride 102 (98-107) mmol/L Carbon Dioxide 26 (22-30) mmol/L Anion Gap 7 mmol/L BUN 34 H (7-17) mg/dL Creatinine 1.05 H (0.52-1.04) mg/dL Est GFR (CKD-EPI)AfAm 62 (>60 ml/min/1.73 sqM) Est GFR (CKD-EPI)NonAf 54 (>60 ml/min/1.73 sqM) Glucose 234 H (74-99) mg/dL Plasma Lactic Acid Yasir (0.7-2.0) mmol/L Calcium 8.6 (8.4-10.2) mg/dL Magnesium 1.8 (1.6-2.3) mg/dL Total Bilirubin 0.7 (0.2-1.3) mg/dL AST 25 (14-36) U/L ALT 12 (4-34) U/L Alkaline Phosphatase 85 (38-126) U/L Troponin I (0.000-0.034) ng/mL NT-Pro-B Natriuret Pep pg/mL Total Protein 7.1 (6.3-8.2) g/dL Albumin 3.7 (3.5-5.0) g/dL 04/26/19 04/26/19 04/26/19 Range/Units 19:57 19:57 19:57 WBC (3.8-10.6) k/uL RBC (3.80-5.40) m/uL Hgb (11.4-16.0) gm/dL Hct (34.0-46.0) % MCV (80.0-100.0) fL MCH (25.0-35.0) pg MCHC (31.0-37.0) g/dL RDW (11.5-15.5) % Plt Count (150-450) k/uL Neutrophils % % Lymphocytes % % Monocytes % % Eosinophils % % Basophils % % Neutrophils # (1.3-7.7) k/uL Lymphocytes # (1.0-4.8) k/uL Monocytes # (0-1.0) k/uL Eosinophils # (0-0.7) k/uL Basophils # (0-0.2) k/uL Anisocytosis PT (9.0-12.0) sec INR (<1.2) APTT (22.0-30.0) sec Sodium (137-145) mmol/L Potassium (3.5-5.1) mmol/L Chloride (98-107) mmol/L Carbon Dioxide (22-30) mmol/L Anion Gap mmol/L BUN (7-17) mg/dL Creatinine (0.52-1.04) mg/dL Est GFR (CKD-EPI)AfAm (>60 ml/min/1.73 sqM) Est GFR (CKD-EPI)NonAf (>60 ml/min/1.73 sqM) Glucose (74-99) mg/dL Plasma Lactic Acid Yasir 0.7 (0.7-2.0) mmol/L Calcium (8.4-10.2) mg/dL Magnesium (1.6-2.3) mg/dL Total Bilirubin (0.2-1.3) mg/dL AST (14-36) U/L ALT (4-34) U/L Alkaline Phosphatase (38-126) U/L Troponin I <0.012 (0.000-0.034) ng/mL NT-Pro-B Natriuret Pep 679 pg/mL Total Protein (6.3-8.2) g/dL Albumin (3.5-5.0) g/dL - EKG Data -: EKG Interpreted by Me (EKG shows sinus rhythm rate of 96 AL 124, QRS 106, QTC 444) - Radiology Data Radiology results: report reviewed (Chest x-ray is negative for acute disease), image reviewed Disposition Clinical Impression: Acute exacerbation of chronic obstructive pulmonary disease, Acute bronchitis Disposition: ADMITTED IP TO THIS HOSP Condition: Fair Is patient prescribed a controlled substance at d/c from ED?: No Referrals: Verona Medrano MD [Primary Care Provider] - 1-2 days
--- NOTE | 2019-04-26 22:09 | XR ---
EXAMINATION TYPE: XR chest 2V DATE OF EXAM: 04/26/2019 COMPARISON: 12/15/2018 HISTORY: Difficulty breathing TECHNIQUE: 2 views FINDINGS: There is coarse interstitial density in the lungs. Heart is borderline enlarged. There is n o pleural effusion. Bony thorax is intact. IMPRESSION: Pulmonary interstitial fibrosis. No obvious heart failure. No significant change.
[2019-04-26 22:11] LABS: Anisocytosis Slight; Basophils % (A) 0 %; Eosinophils # (A) 0.1 k/uL (0-0.7); Eosinophils % (A) 1 %; HCT 31.7 % (34.0-46.0); Lymphocytes # (A) 2.8 k/uL (1.0-4.8); Lymphocytes % (A) 21 %; MCH 25.4 pg (25.0-35.0); MCHC 31.5 g/dL (31.0-37.0); MCV 80.7 fL (80.0-100.0); Mean Platelet Volume 7.6; Monocytes # (A) 0.7 k/uL (0-1.0); Monocytes % (A) 5 %; Neutrophils # (A) 9.5 k/uL (1.3-7.7); Neutrophils % (A) 71 %; Platelet Count 171 k/uL (150-450); RBC 3.93 m/uL (3.80-5.40); RDW 16.8 % (11.5-15.5); WBC 13.3 k/uL (3.8-10.6)
[2019-04-26 22:19] LABS: Albumin 3.7 g/dL (3.5-5.0); Calcium 8.6 mg/dL (8.4-10.2); Magnesium 1.8 mg/dL (1.6-2.3); Total Bilirubin 0.7 mg/dL (0.2-1.3); Total Protein 7.1 g/dL (6.3-8.2)
[2019-04-26 22:20] LABS: Potassium 4.8 mmol/L (3.5-5.1)
[2019-04-26 22:22] LABS: INR 1.3 (<1.2); Prothrombin Time 12.6 sec (9.0-12.0)
[2019-04-26 22:23] LABS: Partial Thromboplastin Time 31.4 sec (22.0-30.0)
[2019-04-26] MEDS ORDERED: methylPREDNISolone SOD SUCCI 125 MG/2 ML VIAL IV STA (22:34)
[2019-04-26] MEDS: SODIUM CHLORIDE 0.9% 1,000 ML IV SCH (22:57)
[2019-04-26] MEDS ORDERED: INSULIN REGULAR 100 UNIT/ML VIAL IV ONE (23:33)
[2019-04-26] MEDS ORDERED: LORazepam 2 MG/ML INJ IV STA (23:33)
[2019-04-26] MEDS ORDERED: ACETAMINOPHEN TAB 325 MG TAB PO PRN (23:33)
[2019-04-27] MEDS: IPRATROPIUM-ALBUTEROL 3 ML NEB INHALATION PRN ×2 (00:02→19:19)
[2019-04-27 00:05] LABS: Glucose,Whole Blood 229 mg/dL (75-99)
[2019-04-27] MEDS ORDERED: hydrALAZINE HCL 25 MG TAB PO STA (00:19)
[2019-04-27] MEDS: methylPREDNISolone SOD SUCCI 125 MG/2 ML VIAL IV SCH ×4 (00:58→17:26)
[2019-04-27] MEDS: INSULIN DETEMIR (LEVEMIR) 100 UNIT/ML SYR SQ SCH ×2 (00:59→21:16)
[2019-04-27 02:17] LABS: Glucose,Whole Blood 236 mg/dL (75-99)
[2019-04-27 07:05] LABS: Glucose,Whole Blood 325 mg/dL (75-99)
[2019-04-27] MEDS: ALBUTEROL NEBULIZED 2.5 MG/3 ML INHALATION SCH ×3 (07:17→15:11)
[2019-04-27] MEDS: INSULIN ASPART (NovoLOG) 100 UNIT/ML VIAL SQ SCH ×4 (07:27→21:15)
[2019-04-27] MEDS ORDERED: INSULIN ASPART (NovoLOG) 100 UNIT/ML VIAL SQ SCH (07:30)
[2019-04-27] MEDS: amLODIPine 5 MG TAB PO SCH (08:53)
[2019-04-27] MEDS: ENOXAPARIN 40 MG/0.4 ML SYRINGE SQ SCH (08:53)
[2019-04-27] MEDS ORDERED: AZITHROMYCIN 500 MG TAB PO SCH (09:00)
[2019-04-27] MEDS: SODIUM CHLORIDE 0.9% 1,000 ML IV SCH (12:03)
[2019-04-27 12:10] LABS: Glucose,Whole Blood 358 mg/dL (75-99)
--- NOTE | 2019-04-27 12:27 | P.CNPUL ---
History of Present Illness Consult date: 04/27/19 Reason for consult: dyspnea History of present illness: This is a 73-year-old female patient is known to me. The patient has chronic hypoxic respiratory failure management and oxygen at 2 L per minute nasal cannula. This was attributed to a combination of COPD/asthma. She is a lifetime nonsmoker. She has demented on DuoNeb nebulized treatments around the clock on outpatient basis. She was admitted in [facility] around December 2018. At that time, the patient was treated and she was discharged home and she came and saw me in the office and she was not feeling well. On the evaluation that was done in January 2019, I had already done a bronchoscopy on this patient and the bronchoscopy showed several colonies for pseudomonas aeruginosa that were resistant to ciprofloxacin. To avoid IV antibiotics, I give the patient a trial of oral Levaquin. The patient took Levaquin 750 mg for a total of 2 weeks. She improved and her cough and congestion improved and subsequently her symptoms got worse and she became again bronchospastic and wheezy. At that point, it said that the PICC line and I gave the patient a course of IV antibiotics utilizing IV cefepime. I see that the patient was in the emergency department on 04/09/2019 with erythema in the left upper extremity. The PICC line was removed. The upper extremity with ultrasound and there was evidence of a left upper extremity DVT. The patient was given blood culture that was positive for coagulase-negative staph in 1 out of 2 cultures. She came into the emergency department yesterday because of worsening shortness of breath and cough and congestion. On examination she is slightly bronchospastic and wheezy. Nevertheless, no fever or chills and the chest x-ray showed chronic pulmonary interstitial scarring and fibrosis without any acute abnormalities. Flu screen was negative. The rest of the blood work was all within normal limits. Review of Systems Constitutional Constitutional: no fever, no night sweats, no significant weight gain, no significant weight loss, no exercise intolerance Eyes Eyes: no dry eyes, no vision change, no irritation ENMT Ears: no difficulty hearing, no ear pain Nose: no frequent nosebleeds, no nose problems, no sinus problems Mouth/Throat: no sore throat, no bleeding gums, no snoring, no dry mouth, no mouth ulcers, no oral abnormalities, no teeth problems Cardiovascular Cardiovascular: no chest pain, no arm pain on exertion, no palpitations, no known heart murmur, shortness of breath when walking Respiratory Respiratory: no coughing up blood, no sleep apnea, cough, wheezing, shortness of breath Gastrointestinal Gastrointestinal: no abdominal pain, no nausea, no vomiting, no constipation, normal appetite, no diarrhea, not vomiting blood, no dyspepsia, no GERD Genitourinary Genitourinary: no incontinence, no difficulty urinating, no hematuria, no increased frequency Musculoskeletal Musculoskeletal: no muscle aches, no muscle weakness, no arthralgias/joint pain, no back pain, swelling in the extremities Integumentary Skin: no abnormal mole, no jaundice, no rashes, no laceration Neurologic Neurologic: no loss of consciousness, no weakness, no numbness, no seizures, no dizziness, no migraines, no headaches, no tremor Psychiatric Psych: no depression, no sleep disturbances, feeling safe in a relationship, no alcohol abuse, no anxiety, no hallucinations, no suicidal thoughts Endocrine Endocrine: fatigue Hematologic/Lymphatic Hematologic/Lymphatic no swollen glands, no bruising, no excessive bleeding Allergic/Immunologic Allergy/Immunologic: no runny nose, no sinus pressure, no itching, no hives, no frequent sneezing Past Medical History Past Medical History: Atrial Fibrillation (Paroxysmal atrial fibrillation currently she is in sinus rhythm), Asthma, Heart Failure, COPD, Diabetes Mellitus, GERD/Reflux, Hearing Disorder / Deafness, Hypertension, Osteoarthritis (OA), Pneumonia, Renal Disease, Thyroid Disorder Additional Past Medical History / Comment(s): HOLE IN RIGHT RETINA. hiatal hernia, anemia, chronic hypoxic respiratory failure, recent pulmonary infection with pseudomonas aeruginosa confirmed via bronchoscopy and the lavage History of Any Multi-Drug Resistant Organisms: None Reported Past Surgical History: Cholecystectomy, Hysterectomy Additional Past Surgical History / Comment(s): CATARACT REMOVAL LEFT EYE. Past Anesthesia/Blood Transfusion Reactions: No Reported Reaction Past Psychological History: Anxiety, Panic Disorder Smoking Status: Never smoker Past Alcohol Use History: None Reported Past Drug Use History: None Reported - Past Family History Mother Family Medical History: No Reported History Medications and Allergies Home Medications Medication Instructions Recorded Confirmed Type ALPRAZolam [Xanax] 0.5 mg PO TID 01/16/19 04/27/19 History Alendronate Sodium [Fosamax] 70 mg PO FR 01/16/19 04/27/19 History Citalopram Hydrobromide 40 mg PO DAILY 01/16/19 04/27/19 History [Citalopram HBr] Diltiazem HCl [Diltiazem HCl 24Hr 180 mg PO DAILY 01/16/19 04/27/19 History ER] Furosemide [Lasix] 40 mg PO DAILY 01/16/19 04/27/19 History Insulin Glargine [Lantus] 30 unit SQ HS 01/16/19 04/27/19 History Ipratropium Nebulized [Atrovent 0.5 mg INHALATION RT-QID 01/16/19 04/27/19 History Nebulized 0.2 MG/ML] Levothyroxine Sodium [Synthroid] 50 mg PO DAILY 01/16/19 04/27/19 History Losartan [Cozaar] 50 mg PO DAILY 01/16/19 04/27/19 History Lovastatin [Mevacor] 40 mg PO DAILY 01/16/19 04/27/19 History Potassium Chloride [Klor-Con 20] 20 meq PO BID 01/16/19 04/27/19 History Warfarin [Coumadin] 5 mg PO SUMOTUWETHSA 01/16/19 04/27/19 History Zafirlukast [Accolate] 20 mg PO BID 01/16/19 04/27/19 History traMADol HCL 50 mg PO TID PRN 01/16/19 04/27/19 History Insulin Regular, Human [NovoLIN R] See Protocol SQ ACHS PRN 03/16/19 04/27/19 History Albuterol Nebulized [Ventolin 2.5 mg INHALATION RT-QID 04/26/19 04/27/19 History Nebulized] Warfarin [Coumadin] 7.5 mg PO FR 04/26/19 04/27/19 History Allergies Allergy/AdvReac Type Severity Reaction Status Date / Time Iodinated Contrast Media Allergy Unknown, Verified 04/26/19 20:59 POOR RENAL FUNCTIONS latex Allergy Rash/Hives Verified 04/26/19 20:59 Penicillins Allergy Rash/Hives Verified 04/26/19 20:59 Physical Exam Vitals: Vital Signs Temp Pulse Pulse Pulse Resp BP BP 04/27/19 11:11 88 04/27/19 10:57 84 04/27/19 09:23 97.6 F 85 16 131/72 04/27/19 09:15 85 16 04/27/19 07:26 88 04/27/19 07:17 88 04/27/19 05:48 98.2 F 79 20 119/63 04/27/19 02:17 98.4 F 89 20 137/72 04/27/19 00:17 84 04/27/19 00:12 98.0 F 87 24 171/76 04/26/19 23:59 80 04/26/19 23:21 88 04/26/19 23:12 81 04/26/19 23:01 99.3 F 85 18 173/67 04/26/19 21:36 87 04/26/19 21:28 89 04/26/19 20:56 99.9 F H 94 20 168/61 Pulse Ox 04/27/19 11:11 04/27/19 10:57 04/27/19 09:23 99 04/27/19 09:15 04/27/19 07:26 04/27/19 07:17 04/27/19 05:48 100 04/27/19 02:17 97 04/27/19 00:17 04/27/19 00:12 95 04/26/19 23:59 04/26/19 23:21 04/26/19 23:12 04/26/19 23:01 95 04/26/19 21:36 04/26/19 21:28 04/26/19 20:56 94 L Intake and Output 04/26/19 04/27/19 04/27/19 22:59 06:59 14:59 Other: Voiding Method Bedside Commode Bedside Commode # Voids 1 Weight 94.801 kg 93.4 kg General Appearance no diaphoresis, no respiratory distress, speech not interrupted by breaths, no dyspnea, no pallor, not cachectic, well nourished, appears well, obesity HEENT no pursed lip breathing, no jugular venous distention, no mucous membrane cyanosis, no perioral cyanosis, mallampati classification: class 1, Mallampati Classification: Class 4 Chest no barrel chest, no retractions, no sternocleidomastoid muscle contractions, no supraclavicular retractions, no intercostal retractions, no decreased air movement, no rhonchi, no hyperinflation, (normal) adventitious sounds: rales / crackles: bilaterally: midlung carrera, prolonged expiratory wheezing, decreased air movement and there is prolongation of the exhalation phase of breathing and diffuse expiratory wheezes. Heart no right ventricular heave, no distant heart sounds, no s3 gallop, (normal) jugular vein: jugular venous distention: by 0cm, (normal) jugular vein GI bowel sounds: hyperactive (borborygmi), bowel sounds: diminished or absent Extremities no cyanosis, no clubbing, edema (trace edema lower extremities) Neurologic no decreased mental status, no somnolence, no confusion Assisstive Devices: ambulates with no assitive devices Gait and Mobility: gait WNL, full weight bearing Examination of the skin revealed no evidence of significant rashes, suspicious appearing nevi or other concerning lesions. Results - Laboratory Findings CBC and BMP: 04/26/19 19:57 04/26/19 19:57 ABG WBC 13.3 k/uL (3.8-10.6) H 04/26/19 19:57 RBC 3.93 m/uL (3.80-5.40) 04/26/19 19:57 Hgb 10.0 gm/dL (11.4-16.0) L 04/26/19 19:57 Hct 31.7 % (34.0-46.0) L 04/26/19 19:57 MCV 80.7 fL (80.0-100.0) 04/26/19 19:57 MCH 25.4 pg (25.0-35.0) 04/26/19 19:57 MCHC 31.5 g/dL (31.0-37.0) 04/26/19 19:57 RDW 16.8 % (11.5-15.5) H 04/26/19 19:57 Plt Count 171 k/uL (150-450) 04/26/19 19:57 Neutrophils % 71 % 04/26/19 19:57 Lymphocytes % 21 % 04/26/19 19:57 Monocytes % 5 % 04/26/19 19:57 Eosinophils % 1 % 04/26/19 19:57 Basophils % 0 % 04/26/19 19:57 Neutrophils # 9.5 k/uL (1.3-7.7) H 04/26/19 19:57 Lymphocytes # 2.8 k/uL (1.0-4.8) 04/26/19 19:57 Monocytes # 0.7 k/uL (0-1.0) 04/26/19 19:57 Eosinophils # 0.1 k/uL (0-0.7) 04/26/19 19:57 Basophils # 0.0 k/uL (0-0.2) 04/26/19 19:57 Anisocytosis Slight 04/26/19 19:57 PT 12.6 sec (9.0-12.0) H 04/26/19 19:57 INR 1.3 (<1.2) H 04/26/19 19:57 APTT 31.4 sec (22.0-30.0) H 04/26/19 19:57 Sodium 135 mmol/L (137-145) L 04/26/19 19:57 Potassium 4.8 mmol/L (3.5-5.1) 04/26/19 19:57 Chloride 102 mmol/L (98-107) 04/26/19 19:57 Carbon Dioxide 26 mmol/L (22-30) 04/26/19 19:57 Anion Gap 7 mmol/L 04/26/19 19:57 BUN 34 mg/dL (7-17) H 04/26/19 19:57 Creatinine 1.05 mg/dL (0.52-1.04) H 04/26/19 19:57 Est GFR (CKD-EPI)AfAm 62 (>60 ml/min/1.73 sqM) 04/26/19 19:57 Est GFR (CKD-EPI)NonAf 54 (>60 ml/min/1.73 sqM) 04/26/19 19:57 Glucose 234 mg/dL (74-99) H 04/26/19 19:57 POC Glucose (mg/dL) 358 mg/dL (75-99) H 04/27/19 12:08 POC Glu Pit Supervisor ID Mi Umaña 04/27/19 12:08 Plasma Lactic Acid Yasir 0.7 mmol/L (0.7-2.0) 04/26/19 19:57 Calcium 8.6 mg/dL (8.4-10.2) 04/26/19 19:57 Magnesium 1.8 mg/dL (1.6-2.3) 04/26/19 19:57 Total Bilirubin 0.7 mg/dL (0.2-1.3) 04/26/19 19:57 AST 25 U/L (14-36) 04/26/19 19:57 ALT 12 U/L (4-34) 04/26/19 19:57 Alkaline Phosphatase 85 U/L (38-126) 04/26/19 19:57 Troponin I <0.012 ng/mL (0.000-0.034) 04/26/19 19:57 NT-Pro-B Natriuret Pep 679 pg/mL 04/26/19 19:57 Total Protein 7.1 g/dL (6.3-8.2) 04/26/19 19:57 Albumin 3.7 g/dL (3.5-5.0) 04/26/19 19:57 Influenza Type A RNA Not Detected (Not Detectd) 04/27/19 00:40 Influenza Type B (PCR) Not Detected (Not Detectd) 04/27/19 00:40 PT/INR, D-dimer PT 12.6 sec (9.0-12.0) H 04/26/19 19:57 INR 1.3 (<1.2) H 04/26/19 19:57 Abnormal lab findings: Abnormal Labs 04/26/19 04/26/19 04/26/19 19:57 19:57 19:57 WBC 13.3 H Hgb 10.0 L Hct 31.7 L RDW 16.8 H Neutrophils # 9.5 H PT 12.6 H INR 1.3 H APTT 31.4 H Sodium 135 L BUN 34 H Creatinine 1.05 H Glucose 234 H POC Glucose (mg/dL) 04/27/19 04/27/19 04/27/19 00:00 02:15 07:02 WBC Hgb Hct RDW Neutrophils # PT INR APTT Sodium BUN Creatinine Glucose POC Glucose (mg/dL) 229 H 236 H 325 H 04/27/19 12:08 WBC Hgb Hct RDW Neutrophils # PT INR APTT Sodium BUN Creatinine Glucose POC Glucose (mg/dL) 358 H - Diagnostic Findings Chest x-ray: image reviewed Assessment and Plan Plan: 1 chronic shortness of breath with interval worsening possibly secondary to acute bronchitis. Unsure if there is any persistence with pseudomonal infection. Note that the patient have a pulmonary bacterial infection due to Pseudomonas that was initially treated with Levaquin and subsequently with IV cefepime and completed a 2 week course. Chest x-rays showing some coarse interstitial changes. Rule out underlying fibrosis/scarring. 2 chronic hypoxemic respiratory failure 3 COPD/asthma 4 diabetes mellitus 5 paroxysmal atrial fibrillation current rhythm is sinus 6 stage II chronic kidney disease with a GFR of 54 7 left upper extremity DVT secondary to PICC line 8 hypertension 9 osteoarthritis 10 hypothyroidism Plan Resume Coumadin to achieve an INR between 2 and 3 Agree on bronchodilators Agree on steroids Check a noncontrast CAT scan of the chest looking for any significant pulmonary infiltration or fibrosis Recheck sputum analysis May need a bronchoscopy if Pseudomonas infection remains an ongoing concern. The patient got recently treated with Levaquin and subsequently with IV cefepime regarding this infection.
[2019-04-27] MEDS ORDERED: traMADol 50 MG TAB PO PRN (12:28)
[2019-04-27] MEDS ORDERED: NON FORMULARY DRUG (Alendronate Sodium [Fosamax] 70 MG) PO SCH (12:30)
--- NOTE | 2019-04-27 15:58 | P.HPIM ---
History of Present Illness H&P Date: 04/27/19 Chief Complaint: dyspnea 73-year-old female patient is known to me. The patient has chronic hypoxic respiratory failure management and oxygen at 2 L per minute nasal cannula. This was attributed to a combination of COPD/asthma. She is a lifetime nonsmoker. She has demented on DuoNeb nebulized treatments around the clock on outpatient basis. She was admitted in [facility] around December 2018. At that time, the patient was treated and she was discharged home and she came and saw me in the office and she was not feeling well. On the evaluation that was done in January 2019, I had already done a bronchoscopy on this patient and the bronchoscopy showed several colonies for pseudomonas aeruginosa that were resistant to ciprofloxacin. To avoid IV antibiotics, I give the patient a trial of oral Levaquin. The patient took Levaquin 750 mg for a total of 2 weeks. She improved and her cough and congestion improved and subsequently her symptoms got worse and she became again bronchospastic and wheezy. At that point, it said that the PICC line and I gave the patient a course of IV antibiotics utilizing IV cefepime. I see that the patient was in the emergency department on 04/09/2019 with erythema in the left upper extremity. The PICC line was removed. The upper extremity with ultrasound and there was evidence of a left upper extremity DVT. The patient was given blood culture that was positive for coagulase-negative staph in 1 out of 2 cultures. Review of Systems REVIEW OF SYSTEMS: CONSTITUTIONAL: No fever, no malaise, no fatigue. HEENT: No recent visual problems or hearing problems. Denied any sore throat. CARDIOVASCULAR: No chest pain, orthopnea, PND, no palpitations, no syncope. PULMONARY: No shortness of breath, no cough, no hemoptysis. GASTROINTESTINAL: No diarrhea, no nausea, no vomiting, no abdominal pain. NEUROLOGICAL: No headaches, no weakness, no numbness. HEMATOLOGICAL: Denies any bleeding or petechiae. GENITOURINARY: Denies any burning micturition, frequency, or urgency. MUSCULOSKELETAL/RHEUMATOLOGICAL: Denies any joint pain, swelling, or any muscle pain. ENDOCRINE: Denies any polyuria or polydipsia. The rest of the 14-point review of systems is negative. Past Medical History Past Medical History: Atrial Fibrillation (Paroxysmal atrial fibrillation currently she is in sinus rhythm), Asthma, Heart Failure, COPD, Diabetes Mellitus, GERD/Reflux, Hearing Disorder / Deafness, Hypertension, Osteoarthritis (OA), Pneumonia, Renal Disease, Thyroid Disorder Additional Past Medical History / Comment(s): HOLE IN RIGHT RETINA. hiatal hernia, anemia, chronic hypoxic respiratory failure, recent pulmonary infection with pseudomonas aeruginosa confirmed via bronchoscopy and the lavage History of Any Multi-Drug Resistant Organisms: None Reported Past Surgical History: Cholecystectomy, Hysterectomy Additional Past Surgical History / Comment(s): CATARACT REMOVAL LEFT EYE. Past Anesthesia/Blood Transfusion Reactions: No Reported Reaction Past Psychological History: Anxiety, Panic Disorder Smoking Status: Never smoker Past Alcohol Use History: None Reported Past Drug Use History: None Reported - Past Family History Mother Family Medical History: No Reported History Medications and Allergies Home Medications Medication Instructions Recorded Confirmed Type ALPRAZolam [Xanax] 0.5 mg PO TID 01/16/19 04/27/19 History Alendronate Sodium [Fosamax] 70 mg PO FR 01/16/19 04/27/19 History Citalopram Hydrobromide 40 mg PO DAILY 01/16/19 04/27/19 History [Citalopram HBr] Diltiazem HCl [Diltiazem HCl 24Hr 180 mg PO DAILY 01/16/19 04/27/19 History ER] Furosemide [Lasix] 40 mg PO DAILY 01/16/19 04/27/19 History Insulin Glargine [Lantus] 30 unit SQ HS 01/16/19 04/27/19 History Ipratropium Nebulized [Atrovent 0.5 mg INHALATION RT-QID 01/16/19 04/27/19 History Nebulized 0.2 MG/ML] Levothyroxine Sodium [Synthroid] 50 mg PO DAILY 01/16/19 04/27/19 History Losartan [Cozaar] 50 mg PO DAILY 01/16/19 04/27/19 History Lovastatin [Mevacor] 40 mg PO DAILY 01/16/19 04/27/19 History Potassium Chloride [Klor-Con 20] 20 meq PO BID 01/16/19 04/27/19 History Warfarin [Coumadin] 5 mg PO SUMOTUWETHSA 01/16/19 04/27/19 History Zafirlukast [Accolate] 20 mg PO BID 01/16/19 04/27/19 History traMADol HCL 50 mg PO TID PRN 01/16/19 04/27/19 History Insulin Regular, Human [NovoLIN R] See Protocol SQ ACHS PRN 03/16/19 04/27/19 History Albuterol Nebulized [Ventolin 2.5 mg INHALATION RT-QID 04/26/19 04/27/19 History Nebulized] Warfarin [Coumadin] 7.5 mg PO FR 04/26/19 04/27/19 History Allergies Allergy/AdvReac Type Severity Reaction Status Date / Time Iodinated Contrast Media Allergy Unknown, Verified 04/26/19 20:59 POOR RENAL FUNCTIONS latex Allergy Rash/Hives Verified 04/26/19 20:59 Penicillins Allergy Rash/Hives Verified 04/26/19 20:59 Physical Exam Vitals: Vital Signs Temp Pulse Pulse Pulse Resp BP BP 04/27/19 11:11 88 04/27/19 10:57 84 04/27/19 09:23 97.6 F 85 16 131/72 04/27/19 09:15 85 16 04/27/19 07:26 88 04/27/19 07:17 88 04/27/19 05:48 98.2 F 79 20 119/63 04/27/19 02:17 98.4 F 89 20 137/72 04/27/19 00:17 84 04/27/19 00:12 98.0 F 87 24 171/76 04/26/19 23:59 80 04/26/19 23:21 88 04/26/19 23:12 81 04/26/19 23:01 99.3 F 85 18 173/67 04/26/19 21:36 87 04/26/19 21:28 89 04/26/19 20:56 99.9 F H 94 20 168/61 Pulse Ox 04/27/19 11:11 04/27/19 10:57 04/27/19 09:23 99 04/27/19 09:15 04/27/19 07:26 04/27/19 07:17 04/27/19 05:48 100 04/27/19 02:17 97 04/27/19 00:17 04/27/19 00:12 95 04/26/19 23:59 04/26/19 23:21 04/26/19 23:12 04/26/19 23:01 95 04/26/19 21:36 04/26/19 21:28 04/26/19 20:56 94 L Intake and Output 04/26/19 04/27/19 04/27/19 22:59 06:59 14:59 Other: Voiding Method Bedside Commode Bedside Commode # Voids 1 Weight 94.801 kg 93.4 kg PHYSICAL EXAMINATION: GENERAL: The patient is alert and oriented x3, not in any acute distress. Well developed, well nourished. HEENT: Pupils are round and equally reacting to light. EOMI. No scleral icterus. No conjunctival pallor. Normocephalic, atraumatic. No pharyngeal erythema. No thyromegaly. CARDIOVASCULAR: S1 and S2 present. No murmurs, rubs, or gallops. PULMONARY: Diffuse bilateral wheezing with scattered rhonchi. ABDOMEN: Soft, nontender, nondistended, normoactive bowel sounds. No palpable organomegaly. MUSCULOSKELETAL: No joint swelling or deformity. EXTREMITIES: No cyanosis, clubbing, or pedal edema. NEUROLOGICAL: Gross neurological examination did not reveal any focal deficits. SKIN: No rashes. Results CBC & Chem 7: 04/26/19 19:57 04/26/19 19:57 Labs: Abnormal Lab Results - Last 24 Hours (Table) 04/26/19 04/26/19 04/26/19 Range/Units 19:57 19:57 19:57 WBC 13.3 H (3.8-10.6) k/uL Hgb 10.0 L (11.4-16.0) gm/dL Hct 31.7 L (34.0-46.0) % RDW 16.8 H (11.5-15.5) % Neutrophils # 9.5 H (1.3-7.7) k/uL PT 12.6 H (9.0-12.0) sec INR 1.3 H (<1.2) APTT 31.4 H (22.0-30.0) sec Sodium 135 L (137-145) mmol/L BUN 34 H (7-17) mg/dL Creatinine 1.05 H (0.52-1.04) mg/dL Glucose 234 H (74-99) mg/dL POC Glucose (mg/dL) (75-99) mg/dL 04/27/19 04/27/19 04/27/19 Range/Units 00:00 02:15 07:02 WBC (3.8-10.6) k/uL Hgb (11.4-16.0) gm/dL Hct (34.0-46.0) % RDW (11.5-15.5) % Neutrophils # (1.3-7.7) k/uL PT (9.0-12.0) sec INR (<1.2) APTT (22.0-30.0) sec Sodium (137-145) mmol/L BUN (7-17) mg/dL Creatinine (0.52-1.04) mg/dL Glucose (74-99) mg/dL POC Glucose (mg/dL) 229 H 236 H 325 H (75-99) mg/dL 04/27/19 Range/Units 12:08 WBC (3.8-10.6) k/uL Hgb (11.4-16.0) gm/dL Hct (34.0-46.0) % RDW (11.5-15.5) % Neutrophils # (1.3-7.7) k/uL PT (9.0-12.0) sec INR (<1.2) APTT (22.0-30.0) sec Sodium (137-145) mmol/L BUN (7-17) mg/dL Creatinine (0.52-1.04) mg/dL Glucose (74-99) mg/dL POC Glucose (mg/dL) 358 H (75-99) mg/dL Thrombosis Risk Factor Assmnt - Choose All That Apply Each Factor Represents 1 point: Obesity (BMI >25) Each Risk Factor Represents 2 Points: Age 61-74 years Thrombosis Risk Factor Assessment Total Risk Factor Score: 3 Thrombosis Risk Factor Assessment Level: Moderate Risk Assessment and Plan Assessment: 1. Severe acute tracheobronchitis. Unsure if there is any persistence with pseudomonal infection. Note that the patient have a pulmonary bacterial infection due to Pseudomonas that was initially treated with Levaquin and subsequently with IV cefepime and completed a 2 week course. Chest x-rays showing some coarse interstitial changes. Rule out underlying f ibrosis/scarring. 2. Chronic hypoxic respiratory failure 3. COPD/asthma; acute exacerbation 4. Hyperglycemia/diabetes mellitus; possibly secondary to steroid therapy; patient remains on home dose of Levemir and pre-meal short-acting insulin; continue with Accu-Cheks every before meals and at bedtime with sliding scale protocol 5. Paroxysmal atrial fibrillation; normal sinus rhythm; 6. Acute on chronic kidney disease stage II; IV fluids half-normal saline; monitor renal function and electrolytes; strict GERALD's and daily weights; avoid nephrotoxins and hypotension 7. DVT left upper extremity ; anticoagulated on home dose of Coumadin 8. Hypertension; amlodipine 5 mg daily, Cardizem 180 mg daily; we will discontinue Norvasc because of duplication of therapy; continue with Cozaar 50 mg daily 9. Hypothyroidism; levothyroxin 50 MCG daily DVT prophylaxis; systemic anticoagulation CODE STATUS; full code Time with Patient: Greater than 30
--- NOTE | 2019-04-27 17:00 | CT ---
EXAMINATION TYPE: CT chest wo con DATE OF EXAM: 04/27/2019 COMPARISON: None HISTORY: cough CT DLP: 476.5 mGycm, Automated exposure control for dose reduction was used. CONTRAST: Performed injected with 0 mL of Isovue 300. TECHNIQUE: Axial images were obtained at 5 mm thick sections. Reconstructed images are reviewed on [facility] computer in the coronal plane. FINDINGS: Portion of the thyroid visualized is normal. Mild reticular nodular appearance is at the anterior right apex. There is some mild pneumonitis cordova e in the posterior lateral right midlung. Some mild reticular nodular increase lung markings are at t lung bases posteriorly. No enlarged mediastinal or hilar adenopathy is evident. Multiple scattered shotty lymph nodes are pre sent. The ascending aorta diameter at the level of the main pulmonary artery is 3.3 cm. The main pu lmonary artery diameter at the bifurcation is 3.0 cm. Coronary artery calcification is present. There may be some calcification to the bronchial tree is well. Limited CT sections are obtained through the upper abdomen. Abdomen is essentially unremarkable. IMPRESSIONS: 1. Scattered reticular nodular findings predominantly on the right. Suspicious consolidation is not e vident. Infectious etiology could be considered. Follow-up is recommended.
[2019-04-27 17:14] LABS: Glucose,Whole Blood 377 mg/dL (75-99)
[2019-04-27] MEDS ORDERED: WARFARIN 7.5 MG TAB PO SCH (18:00)
[2019-04-27] MEDS: BUDESONIDE 1 MG/2 ML NEBU INHALATION SCH (19:19)
[2019-04-27] MEDS: FORMOTEROL FUMARATE 20 MCG/2 ML NEBU INHALATION SCH (19:19)
[2019-04-27 20:37] LABS: Glucose,Whole Blood 452 mg/dL (75-99)
[2019-04-27] MEDS ORDERED: predniSONE 20 MG TAB PO SCH (21:00)
[2019-04-27] MEDS ORDERED: INSULIN GLARGINE 30 UNIT SQ SCH (21:00)
[2019-04-27] MEDS: MONTELUKAST 10 MG TAB PO SCH (21:11)
[2019-04-27] MEDS: POTASSIUM CHLORIDE ER 20 MEQ TAB.ER PO SCH (21:11)
[2019-04-27] MEDS: ALPRAZolam 0.5 MG TAB PO PRN (21:11)
[2019-04-28] MEDS: methylPREDNISolone SOD SUCCI 125 MG/2 ML VIAL IV SCH ×4 (00:28→23:58)
[2019-04-28] MEDS: LEVOTHYROXINE 50 MCG TAB PO SCH (05:50)
[2019-04-28 07:12] LABS: Glucose,Whole Blood 243 mg/dL (75-99)
[2019-04-28] MEDS: LOSARTAN 50 MG TAB PO SCH (07:40)
[2019-04-28] MEDS: POTASSIUM CHLORIDE ER 20 MEQ TAB.ER PO SCH ×2 (07:40→21:24)
[2019-04-28] MEDS: CITALOPRAM HYDROBROMIDE 20 MG TAB PO SCH (07:40)
[2019-04-28] MEDS: DILTIAZEM CD 180 MG CAP.ER.24H PO SCH (07:40)
[2019-04-28] MEDS: INSULIN ASPART (NovoLOG) 100 UNIT/ML VIAL SQ SCH ×4 (07:41→21:23)
[2019-04-28] MEDS: FUROSEMIDE 40 MG TAB PO SCH (07:41)
[2019-04-28] MEDS: ATORVASTATIN 10 MG TAB PO SCH (07:41)
[2019-04-28] MEDS: ENOXAPARIN 40 MG/0.4 ML SYRINGE SQ SCH ×2 (07:41→07:45)
[2019-04-28] MEDS: amLODIPine 5 MG TAB PO SCH (07:41)
[2019-04-28 08:06] LABS: Anisocytosis Slight; Basophils % (A) 0 %; Eosinophils % (A) 0 %; HCT 28.8 % (34.0-46.0); HGB 9.1 gm/dL (11.4-16.0); Hypochromasia Slight; Lymphocytes # (A) 0.8 k/uL (1.0-4.8); Lymphocytes % (A) 7 %; MCH 25.6 pg (25.0-35.0); MCHC 31.7 g/dL (31.0-37.0); MCV 80.6 fL (80.0-100.0); Mean Platelet Volume 7.6; Monocytes # (A) 0.3 k/uL (0-1.0); Monocytes % (A) 3 %; Neutrophils # (A) 10.9 k/uL (1.3-7.7); Neutrophils % (A) 90 %; Platelet Count 186 k/uL (150-450); RBC 3.57 m/uL (3.80-5.40); RDW 16.1 % (11.5-15.5); WBC 12.1 k/uL (3.8-10.6)
[2019-04-28 08:12] LABS: INR 1.2 (<1.2); Prothrombin Time 12.5 sec (9.0-12.0)
[2019-04-28 08:20] LABS: Calcium 8.4 mg/dL (8.4-10.2); Potassium 4.8 mmol/L (3.5-5.1)
[2019-04-28] MEDS: IPRATROPIUM-ALBUTEROL 3 ML NEB INHALATION PRN ×4 (09:16→20:24)
[2019-04-28] MEDS: FORMOTEROL FUMARATE 20 MCG/2 ML NEBU INHALATION SCH ×2 (09:18→20:24)
[2019-04-28] MEDS: BUDESONIDE 1 MG/2 ML NEBU INHALATION SCH ×2 (09:18→20:24)
[2019-04-28 11:34] LABS: Glucose,Whole Blood 255 mg/dL (75-99)
--- NOTE | 2019-04-28 11:42 | P.PN ---
Subjective Progress Note Date: 04/28/19 On today's evaluation of 04/28/2019 and seeing the patient for follow-up. Note that the patient underwent a CAT scan of the chest yesterday. The CAT scan showed some scattered reticular nodular findings without clear evidence of any consolidation. I had treated this patient for pseudomonal pneumonia/tracheal bronchitis with IV antibiotics and the patient completed a course of IV cefepime. Clinically, the patient is feeling better. She is less congested. She was able to give me a sputum sample which is showing some gram-negative bacillus and the final cultures and sensitivities are still pending. No fever. No chills. She was restarted on Coumadin. It final decision a bronchoscopy has not been done yet. Objective - Vital Signs Vital signs: Vital Signs Temp 98.0 F 04/28/19 07:00 Pulse 92 04/28/19 09:38 Resp 18 04/28/19 07:00 BP 138/72 04/28/19 07:00 Pulse Ox 98 04/28/19 07:00 Intake & Output 04/27/19 04/28/19 04/28/19 18:59 06:59 18:59 Other: Voiding Method Bedside Commode Bedside Commode Bedside Commode # Voids 2 1 2 # Bowel Movements 0 0 - Exam General Appearance no diaphoresis, no respiratory distress, speech not interrupted by breaths, no dyspnea, no pallor, not cachectic, well nourished, appears well, obesity HEENT no pursed lip breathing, no jugular venous distention, no mucous membrane cyanosis, no perioral cyanosis, mallampati classification: class 1, Mallampati Classification: Class 4 Chest no barrel chest, no retractions, no sternocleidomastoid muscle contractions, no supraclavicular retractions, no intercostal retractions, no decreased air movement, no rhonchi, no hyperinflation, (normal) adventitious sounds: rales / crackles: bilaterally: midlung carrera, prolonged expiratory wheezing, decreased air movement and there is prolongation of the exhalation phase of breathing and diffuse expiratory wheezes. Heart no right ventricular heave, no distant heart sounds, no s3 gallop, (normal) jugular vein: jugular venous distention: by 0cm, (normal) jugular vein GI bowel sounds: hyperactive (borborygmi), bowel sounds: diminished or absent Extremities no cyanosis, no clubbing, edema (trace edema lower extremities) Neurologic no decreased mental status, no somnolence, no confusion Assisstive Devices: ambulates with no assitive devices Gait and Mobility: gait WNL, full weight bearing Examination of the skin revealed no evidence of significant rashes, suspicious appearing nevi or other concerning lesions. - Labs CBC & Chem 7: 04/28/19 07:26 04/28/19 07:26 Labs: Abnormal Lab Results - Last 24 Hours (Table) 04/27/19 04/27/19 04/27/19 Range/Units 12:08 17:11 20:34 WBC (3.8-10.6) k/uL RBC (3.80-5.40) m/uL Hgb (11.4-16.0) gm/dL Hct (34.0-46.0) % RDW (11.5-15.5) % Neutrophils # (1.3-7.7) k/uL Lymphocytes # (1.0-4.8) k/uL PT (9.0-12.0) sec INR (<1.2) BUN (7-17) mg/dL Glucose (74-99) mg/dL POC Glucose (mg/dL) 358 H 377 H 452 H (75-99) mg/dL 04/28/19 04/28/19 04/28/19 Range/Units 07:09 07:26 07:26 WBC 12.1 H (3.8-10.6) k/uL RBC 3.57 L (3.80-5.40) m/uL Hgb 9.1 L (11.4-16.0) gm/dL Hct 28.8 L (34.0-46.0) % RDW 16.1 H (11.5-15.5) % Neutrophils # 10.9 H (1.3-7.7) k/uL Lymphocytes # 0.8 L (1.0-4.8) k/uL PT 12.5 H (9.0-12.0) sec INR 1.2 H (<1.2) BUN (7-17) mg/dL Glucose (74-99) mg/dL POC Glucose (mg/dL) 243 H (75-99) mg/dL 04/28/19 04/28/19 Range/Units 07:26 11:25 WBC (3.8-10.6) k/uL RBC (3.80-5.40) m/uL Hgb (11.4-16.0) gm/dL Hct (34.0-46.0) % RDW (11.5-15.5) % Neutrophils # (1.3-7.7) k/uL Lymphocytes # (1.0-4.8) k/uL PT (9.0-12.0) sec INR (<1.2) BUN 44 H (7-17) mg/dL Glucose 224 H (74-99) mg/dL POC Glucose (mg/dL) 255 H (75-99) mg/dL Microbiology - Last 24 Hours (Table) 04/26/19 19:57 Blood Culture - Final Blood 04/27/19 18:16 Gram Stain - Preliminary Sputum Sputum Culture - Preliminary Assessment and Plan Plan: 1 chronic shortness of breath with interval worsening possibly secondary to acute bronchitis. Unsure if there is any persistence with pseudomonal infecti on. Note that the patient have a pulmonary bacterial infection due to Pseudomonas that was initially treated with Levaquin and subsequently with IV cefepime and completed a 2 week course. Chest x-rays showing some coarse interstitial changes. Rule out underlying fibrosis/scarring. Based on all this, I performed a CAT scan of the chest that showed some minimal reticular changes and no other changes in lung bases without evidence of any clear-cut consolidation. The patient was able to give me a sputum sample that showing gram-negative bacillus. It final culture sensitivity is pending. Clinically improving. 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 Monitor the blood sugar and cover the patient with sliding scale coverage Monitor PT/INR
[2019-04-28] MEDS: AZITHROMYCIN 500 MG TAB PO SCH (12:13)
--- NOTE | 2019-04-28 16:25 | P.PN ---
Subjective Progress Note Date: 04/28/19 Principal diagnosis: Severe acute tracheobronchitis Acute exacerbation of asthma/COPD Acute on chronic hypoxemic respiratory failure 04/28/2019 Patient is evaluated and seeing for follow-up; patient underwent a CAT scan of the chest yesterday- showed some scattered reticular nodular findings without clear evidence of any consolidation. Patient has been treated for pseudomonal pneumonia/tracheal bronchitis with IV antibiotics and the patient completed a course of IV cefepime. Clinically, the patient is feeling better. She is less congested. She was able to give me a sputum sample which is showing some gram- negative bacillus and the final cultures and sensitivities are still pending. No fever. No chills. She was restarted on Coumadin; since final decision of a bronchoscopy has not been done yet. Objective - Vital Signs Vital signs: Vital Signs Temp 98.0 F 04/28/19 07:00 Pulse 94 04/28/19 12:36 Resp 18 04/28/19 07:00 BP 138/72 04/28/19 07:00 Pulse Ox 98 04/28/19 07:00 Intake & Output 04/27/19 04/28/19 04/28/19 18:59 06:59 18:59 Other: Voiding Method Bedside Commode Bedside Commode Bedside Commode # Voids 2 1 2 # Bowel Movements 0 0 - Exam PHYSICAL EXAMINATION: GENERAL: The patient is alert and oriented x3, not in any acute distress. Well developed, well nourished. HEENT: Pupils are round and equally reacting to light. EOMI. No scleral icterus. No conjunctival pallor. Normocephalic, atraumatic. No pharyngeal erythema. No thyromegaly. CARDIOVASCULAR: S1 and S2 present. No murmurs, rubs, or gallops. PULMONARY: Chest is clear to auscultation, no wheezing or crackles. ABDOMEN: Soft, nontender, nondistended, normoactive bowel sounds. No palpable or ganomegaly. MUSCULOSKELETAL: No joint swelling or deformity. EXTREMITIES: No cyanosis, clubbing, or pedal edema. NEUROLOGICAL: Gross neurological examination did not reveal any focal deficits. SKIN: No rashes. - Labs CBC & Chem 7: 04/28/19 07:26 04/28/19 07:26 Labs: Abnormal Lab Results - Last 24 Hours (Table) 03/08/1004/27/19 04/28/19 Range/Units 17:11 20:34 07:09 WBC (3.8-10.6) k/uL RBC (3.80-5.40) m/uL Hgb (11.4-16.0) gm/dL Hct (34.0-46.0) % RDW (11.5-15.5) % Neutrophils # (1.3-7.7) k/uL Lymphocytes # (1.0-4.8) k/uL PT (9.0-12.0) sec INR (<1.2) BUN (7-17) mg/dL Glucose (74-99) mg/dL POC Glucose (mg/dL) 377 H 452 H 243 H (75-99) mg/dL 04/28/19 04/28/19 04/28/19 Range/Units 07:26 07:26 07:26 WBC 12.1 H (3.8-10.6) k/uL RBC 3.57 L (3.80-5.40) m/uL Hgb 9.1 L (11.4-16.0) gm/dL Hct 28.8 L (34.0-46.0) % RDW 16.1 H (11.5-15.5) % Neutrophils # 10.9 H (1.3-7.7) k/uL Lymphocytes # 0.8 L (1.0-4.8) k/uL PT 12.5 H (9.0-12.0) sec INR 1.2 H (<1.2) BUN 44 H (7-17) mg/dL Glucose 224 H (74-99) mg/dL POC Glucose (mg/dL) (75-99) mg/dL 04/28/19 Range/Units 11:25 WBC (3.8-10.6) k/uL RBC (3.80-5.40) m/uL Hgb (11.4-16.0) gm/dL Hct (34.0-46.0) % RDW (11.5-15.5) % Neutrophils # (1.3-7.7) k/uL Lymphocytes # (1.0-4.8) k/uL PT (9.0-12.0) sec INR (<1.2) BUN (7-17) mg/dL Glucose (74-99) mg/dL POC Glucose (mg/dL) 255 H (75-99) mg/dL Microbiology - Last 24 Hours (Table) 04/26/19 19:57 Blood Culture - Final Blood 04/27/19 18:16 Gram Stain - Preliminary Sputum Sputum Culture - Preliminary Assessment and Plan Assessment: 1. Severe acute tracheobronchitis. Unsure if there is any persistence with pseudomonal infection. Note that the patient have a pulmonary bacterial infe ction due to Pseudomonas that was initially treated with Levaquin and subsequently with IV cefepime and completed a 2 week course. Chest x-rays showing some coarse interstitial changes. Rule out underlying fibrosis/scarring. 2. Chronic hypoxic respiratory failure 3. COPD/asthma; acute exacerbation 4. Hyperglycemia/diabetes mellitus; possibly secondary to steroid therapy; patient remains on home dose of Levemir and pre-meal short-acting insulin; continue with Accu-Cheks every before meals and at bedtime with sliding scale protocol 5. Paroxysmal atrial fibrillation; normal sinus rhythm; 6. Acute on chronic kidney disease stage II; IV fluids half-normal saline; monitor renal function and electrolytes; strict GERALD's and daily weights; avoid nephrotoxins and hypotension 7. DVT left upper extremity ; anticoagulated on home dose of Coumadin 8. Hypertension; amlodipine 5 mg daily, Cardizem 180 mg daily; we will discontinue Norvasc because of duplication of therapy; continue with Cozaar 50 mg daily 9. Hypothyroidism; levothyroxin 50 MCG daily DVT prophylaxis; systemic anticoagulation CODE STATUS; full code
[2019-04-28 16:29] LABS: Glucose,Whole Blood 320 mg/dL (75-99)
[2019-04-28] MEDS: WARFARIN 5 MG TAB PO SCH (16:40)
[2019-04-28] MEDS: ALPRAZolam 0.5 MG TAB PO PRN (16:41)
[2019-04-28 21:11] LABS: Glucose,Whole Blood 284 mg/dL (75-99)
[2019-04-28] MEDS: INSULIN DETEMIR (LEVEMIR) 100 UNIT/ML SYR SQ SCH (21:23)
[2019-04-28] MEDS: MONTELUKAST 10 MG TAB PO SCH (21:24)
[2019-04-29] MEDS: ALPRAZolam 0.5 MG TAB PO PRN (03:02)
[2019-04-29] MEDS: LEVOTHYROXINE 50 MCG TAB PO SCH (05:58)
[2019-04-29] MEDS: BUDESONIDE 1 MG/2 ML NEBU INHALATION SCH ×2 (07:21→19:12)
[2019-04-29] MEDS: FORMOTEROL FUMARATE 20 MCG/2 ML NEBU INHALATION SCH ×2 (07:21→19:12)
[2019-04-29] MEDS: IPRATROPIUM-ALBUTEROL 3 ML NEB INHALATION PRN ×4 (07:21→19:12)
[2019-04-29 07:34] LABS: Glucose,Whole Blood 222 mg/dL (75-99)
[2019-04-29 08:01] LABS: INR 1.6 (<1.2); Prothrombin Time 16.2 sec (9.0-12.0)
[2019-04-29] MEDS: amLODIPine 5 MG TAB PO SCH (08:13)
[2019-04-29] MEDS: AZITHROMYCIN 500 MG TAB PO SCH (08:13)
[2019-04-29] MEDS: FUROSEMIDE 40 MG TAB PO SCH (08:13)
[2019-04-29] MEDS: CITALOPRAM HYDROBROMIDE 20 MG TAB PO SCH (08:13)
[2019-04-29] MEDS: POTASSIUM CHLORIDE ER 20 MEQ TAB.ER PO SCH ×2 (08:13→20:58)
[2019-04-29] MEDS: LOSARTAN 50 MG TAB PO SCH (08:13)
[2019-04-29] MEDS: ATORVASTATIN 10 MG TAB PO SCH (08:13)
[2019-04-29] MEDS: INSULIN ASPART (NovoLOG) 100 UNIT/ML VIAL SQ SCH ×4 (08:15→20:57)
[2019-04-29] MEDS: methylPREDNISolone SOD SUCCI 125 MG/2 ML VIAL IV SCH (08:16)
[2019-04-29] MEDS: ENOXAPARIN 40 MG/0.4 ML SYRINGE SQ SCH (08:16)
[2019-04-29] MEDS: DILTIAZEM CD 180 MG CAP.ER.24H PO SCH (08:20)
--- NOTE | 2019-04-29 09:54 | P.CONS ---
History of Present Illness - Reason for Consult Consult date: 04/28/19 + Blood culture Requesting physician: Christiana Alegria - Chief Complaint shortness of breath and cough x few days - History of Present Illness Patient is a 73-year female with a past medical history significant for COPD patient presenting to the ER at [facility] on April 26, 2019 with chief complaints of increasing shortness of breath that has been getting worse for the last few days patient also complaining of cough which has been moderate in intensity with occasional sputum production which seem to be whitish to yellow no hemoptysis no chest pain no nausea no vomiting no abdominal pain or any diarrhea with the symptom had the patient was evaluated by the ER physician on arrival to the ER patient did have low-grade fever of 99.9 white count was elevated at 13.3 influenza PCR was negative patient did have a chest x-ray which was pulmonary and suggested fibrosis no significant change patient also have a CT of the chest completed yesterday afternoon which shows scattered reticulonodular findings predominantly on the right suspicious consolidation not evident infectious etiology could be considered patient has been treated with steroid bronchodilators patient had did have blood cultures drawn which are now showing gram-positive bacilli that prompted this infectious disease consultation patient has shown clinical improvement since she has been admitted to the hospital, patient did have a previous history of pseudomonal pneumonia that has been treated with IV cefepime. Review of Systems Positive point has been mentioned in HPI rest of the systems are negative Past Medical History Past Medical History: Atrial Fibrillation (Paroxysmal atrial fibrillation curr ently she is in sinus rhythm), Asthma, Heart Failure, COPD, Diabetes Mellitus, GERD/Reflux, Hearing Disorder / Deafness, Hypertension, Osteoarthritis (OA), Pneumonia, Renal Disease, Thyroid Disorder Additional Past Medical History / Comment(s): HOLE IN RIGHT RETINA. hiatal h ernia, anemia, chronic hypoxic respiratory failure, recent pulmonary infection with pseudomonas aeruginosa confirmed via bronchoscopy and the lavage History of Any Multi-Drug Resistant Organisms: None Reported Past Surgical History: Cholecystectomy, Hysterectomy Additional Past Surgical History / Comment(s): CATARACT REMOVAL LEFT EYE. Past Anesthesia/Blood Transfusion Reactions: No Reported Reaction Past Psychological History: Anxiety, Panic Disorder Smoking Status: Never smoker Past Alcohol Use History: None Reported Past Drug Use History: None Reported - Past Family History Mother Family Medical History: No Reported History Medications and Allergies Home Medications Medication Instructions Recorded Confirmed Type ALPRAZolam [Xanax] 0.5 mg PO TID 01/16/19 04/27/19 History Alendronate Sodium [Fosamax] 70 mg PO FR 01/16/19 04/27/19 History Citalopram Hydrobromide 40 mg PO DAILY 01/16/19 04/27/19 History [Citalopram HBr] Diltiazem HCl [Diltiazem HCl 24Hr 180 mg PO DAILY 01/16/19 04/27/19 History ER] Furosemide [Lasix] 40 mg PO DAILY 01/16/19 04/27/19 History Insulin Glargine [Lantus] 30 unit SQ HS 01/16/19 04/27/19 History Ipratropium Nebulized [Atrovent 0.5 mg INHALATION RT-QID 01/16/19 04/27/19 History Nebulized 0.2 MG/ML] Levothyroxine Sodium [Synthroid] 50 mg PO DAILY 01/16/19 04/27/19 History Losartan [Cozaar] 50 mg PO DAILY 01/16/19 04/27/19 History Lovastatin [Mevacor] 40 mg PO DAILY 01/16/19 04/27/19 History Potassium Chloride [Klor-Con 20] 20 meq PO BID 01/16/19 04/27/19 History Warfarin [Coumadin] 5 mg PO SUMOTUWETHSA 01/16/19 04/27/19 History Zafirlukast [Accolate] 20 mg PO BID 01/16/19 04/27/19 History traMADol HCL 50 mg PO TID PRN 01/16/19 04/27/19 History Insulin Regular, Human [NovoLIN R] See Protocol SQ ACHS PRN 03/16/19 04/27/19 History Albuterol Nebulized [Ventolin 2.5 mg INHALATION RT-QID 04/26/19 04/27/19 History Nebulized] Warfarin [Coumadin] 7.5 mg PO FR 04/26/19 04/27/19 History Allergies Allergy/AdvReac Type Severity Reaction Status Date / Time Iodinated Contrast Media Allergy Unknown, Verified 04/26/19 20:59 POOR RENAL FUNCTIONS latex Allergy Rash/Hives Verified 04/26/19 20:59 Penicillins Allergy Rash/Hives Verified 04/26/19 20:59 Physical Exam Vitals: Vital Signs Temp Pulse Pulse Resp BP Pulse Ox 04/28/19 14:28 98.0 F 91 20 171/71 96 04/28/19 12:36 94 04/28/19 12:25 94 04/28/19 09:38 92 04/28/19 09:28 92 04/28/19 09:27 92 04/28/19 09:18 92 04/28/19 07:00 98.0 F 89 18 138/72 98 04/27/19 20:36 97.8 F 105 H 18 146/67 95 04/27/19 19:39 88 04/27/19 19:32 90 04/27/19 19:20 90 04/27/19 15:24 90 04/27/19 15:11 94 99 Intake and Output 04/27/19 04/28/19 04/28/19 22:59 06:59 14:59 Intake Total 400 Balance 400 Intake: Oral 400 Other: Voiding Method Bedside Commode Bedside Commode Bedside Commode # Voids 1 1 2 # Bowel Movements 0 0 GENERAL DESCRIPTION: Elderly female lying in bed, no distress. No tachypnea or accessory muscle of respiration use. HEENT: Shows Pallor , no scleral icterus. Oral mucous membrane is dry. NECK: Trachea central, no thyromegaly. LUNGS: Unlabored breathing. Decreased intensity of breath sound. No wheeze or crackle. HEART: S1, S2, regular rate and rhythm. ABDOMEN: Soft, no tenderness , guarding or rigidity EXTREMITIES: No edema of feet. SKIN: No rash, no masses palpable. NEUROLOGICAL: The patient is awake, alert, oriented x3, mood and affect normal. Results CBC & Chem 7: 04/28/19 07:26 04/28/19 07:26 Labs: Abnormal Lab Results - Last 24 Hours (Table) 04/27/19 04/27/19 04/28/19 Range/Units 17:11 20:34 07:09 WBC (3.8-10.6) k/uL RBC (3.80-5.40) m/uL Hgb (11.4-16.0) gm/dL Hct (34.0-46.0) % RDW (11.5-15.5) % Neutrophils # (1.3-7.7) k/uL Lymphocytes # (1.0-4.8) k/uL PT (9.0-12.0) sec INR (<1.2) BUN (7-17) mg/dL Glucose (74-99) mg/dL POC Glucose (mg/dL) 377 H 452 H 243 H (75-99) mg/dL 04/28/19 04/28/19 04/28/19 Range/Units 07:26 07:26 07:26 WBC 12.1 H (3.8-10.6) k/uL RBC 3.57 L (3.80-5.40) m/uL Hgb 9.1 L (11.4-16.0) gm/dL Hct 28.8 L (34.0-46.0) % RDW 16.1 H (11.5-15.5) % Neutrophils # 10.9 H (1.3-7.7) k/uL Lymphocytes # 0.8 L (1.0-4.8) k/uL PT 12.5 H (9.0-12.0) sec INR 1.2 H (<1.2) BUN 44 H (7-17) mg/dL Glucose 224 H (74-99) mg/dL POC Glucose (mg/dL) (75-99) mg/dL 04/28/19 Range/Units 11:25 WBC (3.8-10.6) k/uL RBC (3.80-5.40) m/uL Hgb (11.4-16.0) gm/dL Hct (34.0-46.0) % RDW (11.5-15.5) % Neutrophils # (1.3-7.7) k/uL Lymphocytes # (1.0-4.8) k/uL PT (9.0-12.0) sec INR (<1.2) BUN (7-17) mg/dL Glucose (74-99) mg/dL POC Glucose (mg/dL) 255 H (75-99) mg/dL Microbiology - Last 24 Hours (Table) 04/26/19 19:57 Blood Culture - Final Blood 04/27/19 18:16 Gram Stain - Preliminary Sputum Sputum Culture - Preliminary Assessment and Plan Assessment: 1-patient with a positive blood culture with gram-positive bacilli more likely pointing to his skin contamination and not true bacteremia 2-patient presented to hospital with increasing shortness of breath cough yellow sputum production CT did show some reticulonodular pattern with concern for infectious etiology in this patient did have previous history of pseudomonal pneumonia in the sputum Gram stain showing a gram-negative bacilli with concern for possible pseudomonal tracheobronchitis/pneumonia (1) Bacteremia Current Visit: Yes Status: Acute Code(s): R78.81 - BACTEREMIA SNOMED Code(s): 2536599 Plan: 1-blood cultures repeated to document clearance of bacteremia 2-we will add cefepime 2 g every 12 hours We will follow on clinical condition and cultures to further adjust medication if needed Thank you for this consultation we will follow the patient along with you Time with Patient: Greater than 30
[2019-04-29 10:39] LABS: Anisocytosis Slight; Basophils % (A) 0 %; Eosinophils % (A) 0 %; HCT 28.7 % (34.0-46.0); Hypochromasia Slight; Lymphocytes # (A) 0.4 k/uL (1.0-4.8); Lymphocytes % (A) 4 %; MCH 25.6 pg (25.0-35.0); MCHC 31.3 g/dL (31.0-37.0); MCV 81.8 fL (80.0-100.0); Mean Platelet Volume 7.8; Monocytes # (A) 0.3 k/uL (0-1.0); Monocytes % (A) 3 %; Neutrophils # (A) 8.6 k/uL (1.3-7.7); Neutrophils % (A) 92 %; Platelet Count 188 k/uL (150-450); RBC 3.51 m/uL (3.80-5.40); RDW 16.7 % (11.5-15.5); WBC 9.3 k/uL (3.8-10.6)
[2019-04-29] MEDS: CEFEPIME 2 GM in SODIUM CHLORIDE 0.9% 100 ML IVPB SCH ×2 (10:51→20:57)
[2019-04-29 11:50] LABS: Glucose,Whole Blood 396 mg/dL (75-99)
--- NOTE | 2019-04-29 13:25 | P.PN ---
Subjective Progress Note Date: 04/29/19 The patient is seen today 04/29/2019 in follow-up on the regular medical floor. She is currently sitting up in bed. Awake alert no acute distress. She says loose cough. No fever chills or night sweats. Sputum is showing gram-negative bacilli. Blood cultures are showing gram-positive bacilli. She is currently on cefepime and azithromycin. ID is on the case. White count 9.3. Hemoglobin 9.0. She is afebrile. Hemodynamically stable. Maintaining good O2 saturations in the 90s on 3 L/m per nasal cannula. She is continued on DuoNeb inhalations, Pulmicort and Perforomist inhalations, IV Solu-Medrol, Singulair. And bilateral with warfarin. INR 1.6. Objective - Vital Signs Vital signs: Vital Signs Temp 97.6 F 04/29/19 12:22 Pulse 84 04/29/19 12:22 Resp 18 04/29/19 12:22 BP 136/69 04/29/19 12:22 Pulse Ox 98 04/29/19 12:22 Intake & Output 04/28/19 04/29/19 04/29/19 17:59 06:59 18:59 Intake Total Balance Intake: Oral Other: Voiding Method # Voids # Bowel Movements - Exam General Appearance Very pleasant 73-year-old female patient, on 3 L nasal cannula, well nourished, appears well, obesity HEENT no pursed lip breathing, no jugular venous distention, no mucous membrane cyanosis, no perioral cyanosis, mallampati classification: class 1, Mallampati Classification: Class 4 Chest no barrel chest, no retractions, no sternocleidomastoid muscle contractions, no supraclavicular retractions, no intercostal retractions, no decreased air movement, few scattered rhonchi, end expiratory wheeze. Heart no right ventricular heave, no distant heart sounds, no s3 gallop, GI bowel sounds: Normal Extremities no cyanosis, no clubbing, edema (trace edema lower extremities) Neurologic no decreased mental status, no somnolence, no confusion Assisstive Devices: ambulates with no assitive devices Gait and Mobility: gait WNL, full weight bearing Examination of the skin revealed no evidence of significant rashes, suspicious appearing nevi or other concerning lesions. - Labs CBC & Chem 7: 04/29/19 10:20 04/28/19 07:26 Labs: Abnormal Lab Results - Last 24 Hours (Table) 04/28/19 04/28/19 04/29/19 Range/Units 16:21 21:08 07:23 RBC (3.80-5.40) m/uL Hgb (11.4-16.0) gm/dL Hct (34.0-46.0) % RDW (11.5-15.5) % Neutrophils # (1.3-7.7) k/uL Lymphocytes # (1.0-4.8) k/uL PT 16.2 H (9.0-12.0) sec INR 1.6 H (<1.2) POC Glucose (mg/dL) 320 H 284 H (75-99) mg/dL 04/29/19 04/29/19 04/29/19 Range/Units 07:31 10:20 11:39 RBC 3.51 L (3.80-5.40) m/uL Hgb 9.0 L (11.4-16.0) gm/dL Hct 28.7 L (34.0-46.0) % RDW 16.7 H (11.5-15.5) % Neutrophils # 8.6 H (1.3-7.7) k/uL Lymphocytes # 0.4 L (1.0-4.8) k/uL PT (9.0-12.0) sec INR (<1.2) POC Glucose (mg/dL) 222 H 396 H (75-99) mg/dL Microbiology - Last 24 Hours (Table) 04/27/19 18:16 Gram Stain - Preliminary Sputum Sputum Culture - Preliminary Gram Neg Bacilli 04/26/19 19:57 Blood Culture Gram Stain - Preliminary Blood Blood Culture - Preliminary Gram Positive Bacilli Isolated 04/26/19 19:57 Blood Culture - Final Blood Assessment and Plan Assessment: 1 chronic shortness of breath with interval worsening possibly secondary to acute bronchitis. Current sputum culture revealing gram-negative bacilli. Note that the patient have a pulmonary bacterial infection due to Pseudomonas that was initially treated with Levaquin and subsequently with IV cefepime and completed a 2 week course. Chest x-rays showing some coarse interstitial changes. Rule out underlying fibrosis/scarring. CAT scan of the chest showed some minimal reticular changes and no other changes in lung bases without evidence of any clear-cut consolidation. The patient was able to give a sputum sample that showing gram-negative bacillus. It final culture sensitivity is pending. Clinically improving. 2 chronic hypoxemic respiratory failure 3 COPD/asthma 4 diabetes mellitus 5 paroxysmal atrial fibrillation current rhythm is sinus 6 stage II chronic kidney disease with a GFR of 54 7 left upper extremity DVT secondary to PICC line 8 hypertension 9 osteoarthritis 10 hypothyroidism Plan The patient was seen and evaluated by Dr. Mendiola. She is currently on cefepime and azithromycin. ID is on the case. We'll continue with bronchodilators, IV Solu-Medrol, Singulair. Not quite back to her baseline but improving. We'll continue to follow make further recommendations based on her clinical status. I, the cosigning physician, performed a history & physical examination of the patient. Lungs sounds with bilateral scattered rhonchi, end expiratory wheeze. Maintaining good O2 saturations in the 90s on 3 L/m per nasal cannula. I discussed the assessment and plan of care with my nurse practitioner, Su Arias. I attest to the above note as dictated by her.
--- NOTE | 2019-04-29 13:32 | P.PN ---
Subjective Progress Note Date: 04/29/19 On today's evaluation of 04/29/2019 the patient is feeling better. The sputum is showing gram negative bacillus and the patient was switched IV cefepime. Note that this was origin antibiotics as was given to her before she came into the hospital. She has no new complaints. She is feeling better. She is less congested and less wheezy. Blood sugars are elevated and the patient is seeing size. Coverage for blood sugar control and this is related to systemic steroids. The patient was also seen by infectious disease. Coumadin was restarted. Cultures and sensitivities are still pending regarding the sputum cultures. Objective - Vital Signs Vital signs: Vital Signs Temp 97.6 F 04/29/19 12:22 Pulse 84 04/29/19 12:22 Resp 18 04/29/19 12:22 BP 136/69 04/29/19 12:22 Pulse Ox 98 04/29/19 12:22 Intake & Output 04/28/19 04/29/19 04/29/19 17:59 06:59 18:59 Intake Total Balance Intake: Oral Other: Voiding Method # Voids # Bowel Movements - Exam General Appearance no diaphoresis, no respiratory distress, speech not interrupted by breaths, no dyspnea, no pallor, not cachectic, well nourished, appears well, obesity HEENT no pursed lip breathing, no jugular venous distention, no mucous membrane cyanosis, no perioral cyanosis, mallampati classification: class 1, Mallampati Classification: Class 4 Chest no barrel chest, no retractions, no sternocleidomastoid muscle contractions, no supraclavicular retractions, no intercostal retractions, no decreased air movement, no rhonchi, no hyperinflation, (normal) adventitious sounds: rales / crackles: bilaterally: midlung carrera, prolonged expiratory wheezing, decreased air movement and there is prolongation of the exhalation phase of breathing and diffuse expiratory wheezes. Heart no right ventricular heave, no distant heart sounds, no s3 gallop, (normal) jugular vein: jugular venous distention: by 0cm, (normal) jugular vein GI bowel sounds: hyperactive (borborygmi), bowel sounds: diminished or absent Extremities no cyanosis, no clubbing, edema (trace edema lower extremities) Neurologic no decreased mental status, no somnolence, no confusion Assisstive Devices: ambulates with no assitive devices Gait and Mobility: gait WNL, full weight bearing Examination of the skin revealed no evidence of significant rashes, suspicious appearing nevi or other concerning lesions. - Labs CBC & Chem 7: 04/29/19 10:20 04/28/19 07:26 Labs: Abnormal Lab Results - Last 24 Hours (Table) 04/28/19 04/28/19 04/29/19 Range/Units 16:21 21:08 07:23 RBC (3.80-5.40) m/uL Hgb (11.4-16.0) gm/dL Hct (34.0-46.0) % RDW (11.5-15.5) % Neutrophils # (1.3-7.7) k/uL Lymphocytes # (1.0-4.8) k/uL PT 16.2 H (9.0-12.0) sec INR 1.6 H (<1.2) POC Glucose (mg/dL) 320 H 284 H (75-99) mg/dL 04/29/19 04/29/19 04/29/19 Range/Units 07:31 10:20 11:39 RBC 3.51 L (3.80-5.40) m/uL Hgb 9.0 L (11.4-16.0) gm/dL Hct 28.7 L (34.0-46.0) % RDW 16.7 H (11.5-15.5) % Neutrophils # 8.6 H (1.3-7.7) k/uL Lymphocytes # 0.4 L (1.0-4.8) k/uL PT (9.0-12.0) sec INR (<1.2) POC Glucose (mg/dL) 222 H 396 H (75-99) mg/dL Microbiology - Last 24 Hours (Table) 04/27/19 18:16 Gram Stain - Preliminary Sputum Sputum Culture - Preliminary Gram Neg Bacilli 04/26/19 19:57 Blood Culture Gram Stain - Preliminary Blood Blood Culture - Preliminary Gram Positive Bacilli Isolated 04/26/19 19:57 Blood Culture - Final Blood Assessment and Plan Plan: 1 chronic shortness of breath with interval worsening possibly secondary to acute bronchitis. Unsure if there is any persistence with pseudomonal infection. Note that the patient have a pulmonary bacterial infection due to Pseudomonas that was initially treated with Levaquin and subsequently with IV cefepime and completed a 2 week course. Chest x-rays showing some coarse interstitial changes. Rule out underlying fibrosis/scarring. Based on all th is, I performed a CAT scan of the chest that showed some minimal reticular changes and no other changes in lung bases without evidence of any clear-cut consolidation. The patient was able to give me a sputum sample that showing gram-negative bacillus. It final culture sensitivity is pending. Clinically improving. The patient was seen by infectious disease and the patient was placed on IV cefepime. 2 chronic hypoxemic respiratory failure 3 COPD/asthma 4 diabetes mellitus 5 paroxysmal atrial fibrillation current rhythm is sinus 6 stage II chronic kidney disease with a GFR of 54 7 left upper extremity DVT secondary to PICC line 8 hypertension 9 osteoarthritis 10 hypothyroidism Plan Continue IV cefepime. Resume Coumadin to achieve an INR between 2 and 3, Coumadin was resumed and restarted, and Lovenox for bridging therapy Agree on bronchodilators Agree on steroids, tapered IV Solu-Medrol CAT scan of the chest was noted Awaiting sputum analysis Monitor the blood sugar and cover the patient with sliding scale coverage Monitor PT/INR Infectious diseases on the case. We'll continue to follow.
[2019-04-29] MEDS: methylPREDNISolone SOD SUCCI 40 MG/ML 1 ML VIAL IV SCH ×2 (16:47→23:53)
[2019-04-29] MEDS: WARFARIN 5 MG TAB PO SCH (16:48)
[2019-04-29 16:57] LABS: Glucose,Whole Blood 339 mg/dL (75-99)
--- NOTE | 2019-04-29 17:35 | P.PN ---
Subjective Progress Note Date: 04/29/19 Principal diagnosis: Severe acute tracheobronchitis Acute exacerbation of asthma/COPD Acute on chronic hypoxemic respiratory failure 04/28/2019 Patient is evaluated and seeing for follow-up; patient underwent a CAT scan of the chest yesterday- showed some scattered reticular nodular findings without clear evidence of any consolidation. Patient has been treated for pseudomonal pneumonia/tracheal bronchitis with IV antibiotics and the patient completed a course of IV cefepime. Clinically, the patient is feeling better. She is less congested. She was able to give me a sputum sample which is showing some gram- negative bacillus and the final cultures and sensitivities are still pending. No fever. No chills. She was restarted on Coumadin; since final decision of a bronchoscopy has not been done yet. 04/29/2019 Patient is seen and evaluated sitting up in bed; reports marked improvement in breathing Vital signs remained stable with temperature 97.6, pulse 84, respiration 18 and blood pressure 136/69 The sputum is showing gram negative bacillus and the patient was switched IV cefepime. Note that this was origin antibiotics as was given to her before she came into the hospital. She has no new complaints. She is feeling better. She is less congested and less wheezy. Blood sugars are elevated and the patient is seeing size. Patient continues to have poor blood sugar control and this is related to system ic steroids; we will increase Levemir to 33 units subcu daily at bedtime and continue with insulin sliding scale. The patient was also seen by infectious disease. Coumadin was restarted. Cultures and sensitivities are still pending regarding the sputum cultures. No plans of bronchoscopy as yet Objective - Vital Signs Vital signs: Vital Signs Temp 97.6 F 04/29/19 12:22 Pulse 82 04/29/19 15:31 Resp 18 04/29/19 12:22 BP 136/69 04/29/19 12:22 Pulse Ox 98 04/29/19 12:22 Intake & Output 04/28/19 04/29/19 04/29/19 17:59 06:59 18:59 Intake Total Balance Intake: Oral Other: Voiding Method # Voids # Bowel Movements - Exam PHYSICAL EXAMINATION: GENERAL: The patient is alert and oriented x3, not in any acute distress. Well developed, well nourished. HEENT: Pupils are round and equally reacting to light. EOMI. No scleral icterus. No conjunctival pallor. Normocephalic, atraumatic. No pharyngeal erythema. No thyromegaly. CARDIOVASCULAR: S1 and S2 present. No murmurs, rubs, or gallops. PULMONARY: Chest is clear to auscultation, no wheezing or crackles. ABDOMEN: Soft, nontender, nondistended, normoactive bowel sounds. No palpable organomegaly. MUSCULOSKELETAL: No joint swelling or deformity. EXTREMITIES: No cyanosis, clubbing, or pedal edema. NEUROLOGICAL: Gross neurological examination did not reveal any focal deficits. SKIN: No rashes. - Labs CBC & Chem 7: 04/29/19 10:20 04/28/19 07:26 Labs: Abnormal Lab Results - Last 24 Hours (Table) 04/28/19 04/29/19 04/29/19 Range/Units 21:08 07:23 07:31 RBC (3.80-5.40) m/uL Hgb (11.4-16.0) gm/dL Hct (34.0-46.0) % RDW (11.5-15.5) % Neutrophils # (1.3-7.7) k/uL Lymphocytes # (1.0-4.8) k/uL PT 16.2 H (9.0-12.0) sec INR 1.6 H (<1.2) POC Glucose (mg/dL) 284 H 222 H (75-99) mg/dL 04/29/19 04/29/19 04/29/19 Range/Units 10:20 11:39 16:55 RBC 3.51 L (3.80-5.40) m/uL Hgb 9.0 L (11.4-16.0) gm/dL Hct 28.7 L (34.0-46.0) % RDW 16.7 H (11.5-15.5) % Neutrophils # 8.6 H (1.3-7.7) k/uL Lymphocytes # 0.4 L (1.0-4.8) k/uL PT (9.0-12.0) sec INR (<1.2) POC Glucose (mg/dL) 396 H 339 H (75-99) mg/dL Microbiology - Last 24 Hours (Table) 04/27/19 18:16 Gram Stain - Preliminary Sputum Sputum Culture - Preliminary Gram Neg Bacilli 04/26/19 19:57 Blood Culture Gram Stain - Preliminary Blood Blood Culture - Preliminary Gram Positive Bacilli Isolated Assessment and Plan Assessment: 1. Severe acute tracheobronchitis. Unsure if there is any persistence with pseudomonal infection. Note that the patient have a pulmonary bacterial infection due to Pseudomonas that was initially treated with Levaquin and subsequently with IV cefepime and completed a 2 week course. Chest x-rays showing some coarse interstitial changes. Rule out underlying fibrosis/scarring. 2. Chronic hypoxic respiratory failure 3. COPD/asthma; acute exacerbation 4. Hyperglycemia/diabetes mellitus; possibly secondary to steroid therapy; p atient remains on home dose of Levemir and pre-meal short-acting insulin; continue with Accu-Cheks every before meals and at bedtime with sliding scale protocol 5. Paroxysmal atrial fibrillation; normal sinus rhythm; 6. Acute on chronic kidney disease stage II; IV fluids half-normal saline; mo nitor renal function and electrolytes; strict GERALD's and daily weights; avoid nephrotoxins and hypotension 7. DVT left upper extremity ; anticoagulated on home dose of Coumadin 8. Hypertension; amlodipine 5 mg daily, Cardizem 180 mg daily; we will discontinue Norvasc because of duplication of therapy; continue with Cozaar 50 mg daily 9. Hypothyroidism; levothyroxin 50 MCG daily DVT prophylaxis; systemic anticoagulation CODE STATUS; full code
[2019-04-29 20:39] LABS: Glucose,Whole Blood 288 mg/dL (75-99)
[2019-04-29] MEDS: MONTELUKAST 10 MG TAB PO SCH (20:58)
[2019-04-29] MEDS ORDERED: INSULIN DETEMIR (LEVEMIR) 100 UNIT/ML SYR SQ SCH (21:00)
[2019-04-30] MEDS: LEVOTHYROXINE 50 MCG TAB PO SCH (06:23)
--- NOTE | 2019-04-30 06:48 | P.PN ---
Subjective This is a pleasant 73 years old female with past medical history of atrial fibrillation, heart failure, COPD/asthma, diabetes mellitus, hypertension, hypothyroidism, GERD, hearing difficulty, osteoarthritis, hiatal hernia, recent Pseudomonas bronchitis. Patient presents with 04/26/2019 with respiratory symptoms, patient has been treated with antibiotics with Zithromax and cefepime for acute tracheal bronchitis and COPD, also patient was started on Solu-Medrol 40 mg, she is also on Coumadin for A. fib and her INR was 1.6 yesterday. Patient is still complaining of from dyspnea, exertional dyspnea was complaining of some phlegm, glucose was evaluated and oxygen is 2-3% with a saturation of 99%, sputum culture is growing gram-negative bacilli with the results are still pending Objective - Vital Signs Vital signs: Vital Signs Temp 97.9 F 04/30/19 04:45 Pulse 80 04/30/19 04:45 Resp 22 04/30/19 04:45 BP 159/76 04/30/19 04:45 Pulse Ox 99 04/30/19 04:45 Intake & Output 04/29/19 04/29/19 04/30/19 06:59 18:59 06:59 Intake Total 540 240 Balance 540 240 Intake: Oral 540 240 Other: Voiding Method Bedside Commode # Voids 4 1 # Bowel Movements - Exam GENERAL: The patient is alert and oriented x3, not in any acute distress. Well developed, well nourished. HEENT: Pupils are round and equally reacting to light. EOMI. No scleral icterus. No conjunctival pallor. Normocephalic, atraumatic. No pharyngeal erythema. No thyromegaly. CARDIOVASCULAR: S1 and S2 present. No murmurs, rubs, or gallops. -PULMONARY: Chest is clear to auscultation, bilateral scattered wheezing ABDOMEN: Soft, nontender, nondistended, normoactive bowel sounds. No palpable organomegaly. MUSCULOSKELETAL: No joint swelling or deformity. EXTREMITIES: No cyanosis, clubbing, or pedal edema. NEUROLOGICAL: Gross neurological examination did not reveal any focal deficits. SKIN: No rashes. no petechiae. - Labs CBC & Chem 7: 04/29/19 10:20 04/28/19 07:26 Labs: Abnormal Lab Results - Last 24 Hours (Table) 04/29/19 04/29/19 04/29/19 Range/Units 07:23 07:31 10:20 RBC 3.51 L (3.80-5.40) m/uL Hgb 9.0 L (11.4-16.0) gm/dL Hct 28.7 L (34.0-46.0) % RDW 16.7 H (11.5-15.5) % Neutrophils # 8.6 H (1.3-7.7) k/uL Lymphocytes # 0.4 L (1.0-4.8) k/uL PT 16.2 H (9.0-12.0) sec INR 1.6 H (<1.2) POC Glucose (mg/dL) 222 H (75-99) mg/dL 04/29/19 04/29/19 04/29/19 Range/Units 11:39 16:55 20:33 RBC (3.80-5.40) m/uL Hgb (11.4-16.0) gm/dL Hct (34.0-46.0) % RDW (11.5-15.5) % Neutrophils # (1.3-7.7) k/uL Lymphocytes # (1.0-4.8) k/uL PT (9.0-12.0) sec INR (<1.2) POC Glucose (mg/dL) 396 H 339 H 288 H (75-99) mg/dL Microbiology - Last 24 Hours (Table) 04/28/19 16:00 Blood Culture - Preliminary Blood No Growth after 24 hours 04/27/19 18:16 Gram Stain - Preliminary Sputum Sputum Culture - Preliminary Gram Neg Bacilli 04/26/19 19:57 Blood Culture Gram Stain - Preliminary Blood Blood Culture - Preliminary Gram Positive Bacilli Isolated Assessment and Plan Assessment: Accu-Cheks bronchitis Acute COPD/asthma exacerbation A. fib on Coumadin Chronic kidney disease stage II chronic heart failure Diabetes mellitus Hypertension Hypothyroidism GERD Osteoarthritis History of hernia Plan: This is a pleasant 73 years old female who presents with acute bronchitis with recent history of pseudomonas infection, continue with antibiotics per ID service, currently on Zithromax and sent for me, pulmonary team recommendation, continue with steroids, continue with warfarin and follow up INR level, monitor sugar closely, continue with Lasix and monitor oxygen level Labs and medication were reviewed.. Continue same treatment. Continue with symptomatic treatment. Resume home medication. Monitor lytes and vitals. DVT and GI prophylaxis. Further recommendations of the clinical course of the patient DVT prophylaxis: On Coumadin GI Prophylaxis: Pepcid Prognosis is guarded
[2019-04-30 07:08] LABS: Glucose,Whole Blood 277 mg/dL (75-99)
--- NOTE | 2019-04-30 07:37 | PN ---
PROGRESS NOTE DATE OF SERVICE: 04/29/2019 REASON FOR FOLLOWUP: 1. Positive blood culture. 2. Pseudomonas tracheobronchitis. INTERVAL HISTORY: The patient is currently afebrile, she seemed to be breathing more comfortably. The patient denies having any chest pain, cough of decreased intensity, less productive. No nausea, no vomiting. No abdominal pain, no diarrhea. PHYSICAL EXAMINATION: Blood pressure 136/69 with a pulse of 84, temperature 97.6. She is 98% on 2 L nasal cannula. General description is an elderly female, lying in bed in no distress. RESPIRATORY SYSTEM: Unlabored breathing, decreased intensity of breath sounds, no wheeze. HEART: S1, S2. Regular rate and rhythm. ABDOMEN: Soft, no tenderness. LABS: Hemoglobin is 9, white count 9.3. Blood culture with gram-positive bacilli. Sputum with Gram-negative bacilli. Blood culture repeat has been negative. DIAGNOSTIC IMPRESSION AND PLAN: 1. Patient with a positive blood culture with gram-negative bacilli likely skin contamination as she has no clinical disease to go along with it. Blood cultures repeat has been negative. No need for further workup. 2. Patient had difficulty breathing, cough and productive sputum. Sputum showing gram- negative bacilli with concern for pseudomonas tracheobronchitis and question of pneumonia. She is currently covered with cefepime to continue and monitor clinical course closely. MMODL / IJN: [id number] /
[2019-04-30] MEDS: INSULIN ASPART (NovoLOG) 100 UNIT/ML VIAL SQ SCH ×4 (08:29→21:42)
[2019-04-30] MEDS: amLODIPine 5 MG TAB PO SCH (08:30)
[2019-04-30] MEDS: methylPREDNISolone SOD SUCCI 40 MG/ML 1 ML VIAL IV SCH ×2 (08:30→16:51)
[2019-04-30] MEDS: AZITHROMYCIN 500 MG TAB PO SCH (08:30)
[2019-04-30] MEDS: ATORVASTATIN 10 MG TAB PO SCH (08:30)
[2019-04-30] MEDS: CITALOPRAM HYDROBROMIDE 20 MG TAB PO SCH (08:31)
[2019-04-30] MEDS: DILTIAZEM CD 180 MG CAP.ER.24H PO SCH (08:31)
[2019-04-30] MEDS: FUROSEMIDE 40 MG TAB PO SCH (08:32)
[2019-04-30] MEDS: POTASSIUM CHLORIDE ER 20 MEQ TAB.ER PO SCH ×2 (08:32→21:47)
[2019-04-30] MEDS: LOSARTAN 50 MG TAB PO SCH (08:32)
[2019-04-30] MEDS: IPRATROPIUM-ALBUTEROL 3 ML NEB INHALATION PRN ×3 (08:41→20:22)
[2019-04-30] MEDS: FORMOTEROL FUMARATE 20 MCG/2 ML NEBU INHALATION SCH ×2 (08:41→20:22)
[2019-04-30] MEDS: BUDESONIDE 1 MG/2 ML NEBU INHALATION SCH ×2 (08:41→20:22)
[2019-04-30] MEDS ORDERED: FAMOTIDINE 20 MG/2 ML VIAL IV SCH (09:00)
[2019-04-30 10:08] LABS: INR 1.9 (<1.2)
[2019-04-30] MEDS: CEFEPIME 2 GM in SODIUM CHLORIDE 0.9% 100 ML IVPB SCH ×2 (10:13→21:42)
[2019-04-30] MEDS: ENOXAPARIN 40 MG/0.4 ML SYRINGE SQ SCH (10:13)
[2019-04-30 11:36] LABS: Glucose,Whole Blood 373 mg/dL (75-99)
[2019-04-30] MEDS ORDERED: INSULIN ASPART (NovoLOG) 100 UNIT/ML VIAL SQ ONE ×2 (11:39→14:28)
[2019-04-30 14:14] LABS: Glucose,Whole Blood 395 mg/dL (75-99)
--- NOTE | 2019-04-30 14:54 | P.PN ---
Subjective Progress Note Date: 04/30/19 On 04/30/2019 patient seen in follow-up on general medical floor, she is improving, but still dyspneic and bronchospastic, she is on 2 L of oxygen pulse ox 90%, afebrile, hemodynamically stable, blood cultures showed 2 different types of gram-negative bacilli, final cultures pending, sputum culture showed gram-negative bacilli, follow-up blood cultures have shown no growth so far, antibiotic coverage currently with Zithromax and cefepime, ID service is following. Remains on IV site medical, and breathing treatments, no acute events overnight, patient would like to go home, however we're awaiting final identification of the organisms and patient's microbiology Objective - Vital Signs Vital signs: Vital Signs Temp 97.8 F 04/30/19 14:38 Pulse 84 04/30/19 14:38 Resp 16 04/30/19 14:38 BP 145/71 04/30/19 14:38 Pulse Ox 98 04/30/19 14:38 Intake & Output 04/29/19 04/30/19 04/30/19 18:59 06:59 18:59 Intake Total 540 240 Balance 540 240 Intake: Oral 540 240 Other: Voiding Method Bedside Commode # Voids 4 1 1 - Exam GENERAL EXAM: Alert, very pleasant, 73-year-old white female, on 2 L of oxygen, comfortable in no apparent distress. HEAD: Normocephalic/atraumatic. EYES: Normal reaction of pupils, equal size. Conjunctiva pink, sclera white. NOSE: Clear with pink turbinates. THROAT: No erythema or exudates. NECK: No masses, no JVD, no thyroid enlargement, no adenopathy. CHEST: No chest wall deformity. Symmetrical expansion. LUNGS: Equal air entry with diffuse wheezes bilaterally CVS: Regular rate and rhythm, normal S1 and S2, no gallops, no murmurs, no rubs ABDOMEN: Soft, nontender. No hepatosplenomegaly, normal bowel sounds, no guarding or rigidity. EXTREMITIES: No clubbing, no edema, no cyanosis, 2+ pulses and upper and lower extremities. MUSCULOSKELETAL: Muscle strength and tone normal. SPINE: No scoliosis or deformity SKIN: No rashes CENTRAL NERVOUS SYSTEM: Alert and oriented -3. No focal deficits, tone is norm al in all 4 extremities. PSYCHIATRIC: Alert and oriented -3. Appropriate affect. Intact judgment and insight. - Labs CBC & Chem 7: 04/29/19 10:20 04/28/19 07:26 Labs: Abnormal Lab Results - Last 24 Hours (Table) 04/29/19 04/29/19 04/29/19 Range/Units 10:20 16:55 20:33 PT (9.0-12.0) sec INR (<1.2) POC Glucose (mg/dL) 339 H 288 H (75-99) mg/dL Procalcitonin 0.10 H (0.02-0.09) ng/mL 04/30/19 04/30/19 04/30/19 Range/Units 07:00 09:19 11:31 PT 19.0 H (9.0-12.0) sec INR 1.9 H (<1.2) POC Glucose (mg/dL) 277 H 373 H (75-99) mg/dL Procalcitonin (0.02-0.09) ng/mL 04/30/19 Range/Units 14:10 PT (9.0-12.0) sec INR (<1.2) POC Glucose (mg/dL) 395 H (75-99) mg/dL Procalcitonin (0.02-0.09) ng/mL Microbiology - Last 24 Hours (Table) 04/26/19 19:57 Blood Culture Gram Stain - Final Blood Blood Culture - Final Gram Positive Bacilli Isolated Gram Positive Bacilli Isolated#2 04/28/19 16:00 Blood Culture - Preliminary Blood No Growth after 24 hours 04/27/19 18:16 Gram Stain - Preliminary Sputum Sputum Culture - Preliminary Gram Neg Bacilli Assessment and Plan Plan: Assessment: 1 chronic shortness of breath with interval worsening possibly secondary to acute bronchitis. Unsure if there is any persistence with pseudomonal infection. Note that the patient have a pulmonary bacterial infection due to Pseudomonas that was initially treated with Levaquin and subsequently with IV cefepime and completed a 2 week course. Chest x-rays showing some coarse interstitial changes. Rule out underlying fibrosis/scarring. Based on all this, I performed a CAT scan of the chest that showed some minimal reticular changes and no other changes in lung bases without evidence of any clear-cut consolidation. The patient was able to give me a sputum sample that showing gram-negative bacillus. It final culture sensitivity is pending. Clinically improving. The patient was seen by infectious disease and the patient was placed on IV cefepime. 2 chronic hypoxemic respiratory failure 3 COPD/asthma 4 diabetes mellitus 5 paroxysmal atrial fibrillation current rhythm is sinus 6 stage II chronic kidney disease with a GFR of 54 7 left upper extremity DVT secondary to PICC line 8 hypertension 9 osteoarthritis 10 hypothyroidism 11 gram-negative bacteremia, blood cultures have shown 2 types of gram-negative bacilli, final culture is pending Plan: Continue current antibiotic coverage, continue same dose IV Solu-Medrol, breathing treatments, awaiting final identification of the gram-negative organism in the sputum and cultures, a remains on a combination of Zithromax and cefepime, ID service is following. Follow blood culture has shown no growth thus far. She's been afebrile, increase activity as tolerated. We'll continue to follow I performed a history & physical examination of the patient and discussed their management with my nurse practitioner, Maryjo Parisi. I reviewed the nurse practitioner's note and agree with the documented findings and plan of care. Lung sounds are positive for diffuse wheezes throughout the lung carrera. The findings and the impression was discussed with the patient. I attest to the documentation by the nurse practitioner. Time with Patient: Less than 30
[2019-04-30] MEDS ORDERED: PROMETHAZINE HCL 6.25 MG/5 ML CUP PO PRN (15:46)
[2019-04-30 16:11] LABS: Glucose,Whole Blood 284 mg/dL (75-99)
[2019-04-30 17:00] LABS: Glucose,Whole Blood 224 mg/dL (75-99)
[2019-04-30] MEDS: WARFARIN 5 MG TAB PO SCH (17:46)
[2019-04-30 21:06] LABS: Calcium 8.6 mg/dL (8.4-10.2); Magnesium 2.3 mg/dL (1.6-2.3)
[2019-04-30 21:38] LABS: Glucose,Whole Blood 317 mg/dL (75-99)
[2019-04-30] MEDS: INSULIN DETEMIR (LEVEMIR) 100 UNIT/ML SYR SQ SCH (21:46)
[2019-04-30] MEDS: MONTELUKAST 10 MG TAB PO SCH (21:47)
[2019-05-01] MEDS: methylPREDNISolone SOD SUCCI 40 MG/ML 1 ML VIAL IV SCH ×2 (01:03→08:10)
[2019-05-01] MEDS: IPRATROPIUM-ALBUTEROL 3 ML NEB INHALATION PRN ×5 (04:39→21:43)
[2019-05-01] MEDS: LEVOTHYROXINE 50 MCG TAB PO SCH (05:03)
[2019-05-01 07:00] LABS: Glucose,Whole Blood 304 mg/dL (75-99)
[2019-05-01] MEDS: AZITHROMYCIN 500 MG TAB PO SCH (08:08)
[2019-05-01] MEDS: FUROSEMIDE 40 MG TAB PO SCH (08:08)
[2019-05-01] MEDS: amLODIPine 5 MG TAB PO SCH (08:08)
[2019-05-01] MEDS: ATORVASTATIN 10 MG TAB PO SCH (08:08)
[2019-05-01] MEDS: CITALOPRAM HYDROBROMIDE 20 MG TAB PO SCH (08:08)
[2019-05-01] MEDS: POTASSIUM CHLORIDE ER 20 MEQ TAB.ER PO SCH ×2 (08:09→20:21)
[2019-05-01] MEDS: LOSARTAN 50 MG TAB PO SCH (08:09)
--- NOTE | 2019-05-01 08:09 | P.PN ---
Subjective This is a pleasant 73 years old female with past medical history of atrial fibrillation, heart failure, COPD/asthma, diabetes mellitus, hypertension, hypothyroidism, GERD, hearing difficulty, osteoarthritis, hiatal hernia, recent Pseudomonas bronchitis. Patient presents with 04/26/2019 with respiratory symptoms, patient has been treated with antibiotics with Zithromax and cefepime for acute tracheal bronchitis and COPD, also patient was started on Solu-Medrol 40 mg, she is also on Coumadin for A. fib and her INR was 1.6 yesterday. Patient is still complaining of from dyspnea, exertional dyspnea was complaining of some phlegm, glucose was evaluated and oxygen is 2-3% with a saturation of 99%, sputum culture is growing gram-negative bacilli with the results are still pending 05/01/2019 Patient similar to yesterday he feels dyspneic and wheezing with some coughing. She states she is improved compared to admission but not back to normal close to normal yet. She still waiting for sputum culture for gram-negative bacilli to finalize. Sugar still on the high site after increasing her Levemir from 33 up to 50 units yesterday. We will add 15 more units this morning. Also I talked to the patient and she opened to the idea to go home ECF for rehab is indicated, will go on to reconsult PT/OT Objective - Vital Signs Vital signs: Vital Signs Temp 97.4 F L 05/01/19 05:28 Pulse 79 05/01/19 05:28 Resp 17 05/01/19 05:28 BP 167/63 05/01/19 05:28 Pulse Ox 97 05/01/19 05:28 Intake & Output 04/30/19 05/01/19 05/01/19 18:59 06:59 18:59 Other: # Voids 1 2 - Exam GENERAL: The patient is alert and oriented x3, not in any acute distress. Well developed, well nourished. HEENT: Pupils are round and equally reacting to light. EOMI. No scleral icterus. No conjunctival pallor. Normocephalic, atraumatic. No pharyngeal erythema. No thyromegaly. CARDIOVASCULAR: S1 and S2 present. No murmurs, rubs, or gallops. -PULMONARY: Chest is clear to auscultation, bilateral scattered wheezing ABDOMEN: Soft, nontender, nondistended, normoactive bowel sounds. No palpable organomegaly. MUSCULOSKELETAL: No joint swelling or deformity. EXTREMITIES: No cyanosis, clubbing, or pedal edema. NEUROLOGICAL: Gross neurological examination did not reveal any focal deficits. SKIN: No rashes. no petechiae. - Labs CBC & Chem 7: 04/29/19 10:20 04/30/19 09:19 Labs: Abnormal Lab Results - Last 24 Hours (Table) 04/29/19 04/30/19 04/30/19 Range/Units 10:20 09:19 09:19 PT 19.0 H (9.0-12.0) sec INR 1.9 H (<1.2) Sodium 133 L (137-145) mmol/L Potassium 6.0 H (3.5-5.1) mmol/L Carbon Dioxide 18 L (22-30) mmol/L BUN 52 H (7-17) mg/dL Creatinine 1.17 H (0.52-1.04) mg/dL Glucose 391 H (74-99) mg/dL POC Glucose (mg/dL) (75-99) mg/dL Procalcitonin 0.10 H (0.02-0.09) ng/mL 04/30/19 04/30/19 04/30/19 Range/Units 11:31 14:10 16:10 PT (9.0-12.0) sec INR (<1.2) Sodium (137-145) mmol/L Potassium (3.5-5.1) mmol/L Carbon Dioxide (22-30) mmol/L BUN (7-17) mg/dL Creatinine (0.52-1.04) mg/dL Glucose (74-99) mg/dL POC Glucose (mg/dL) 373 H 395 H 284 H (75-99) mg/dL Procalcitonin (0.02-0.09) ng/mL 04/30/19 04/30/19 05/01/19 Range/Units 16:57 21:36 06:58 PT (9.0-12.0) sec INR (<1.2) Sodium (137-145) mmol/L Potassium (3.5-5.1) mmol/L Carbon Dioxide (22-30) mmol/L BUN (7-17) mg/dL Creatinine (0.52-1.04) mg/dL Glucose (74-99) mg/dL POC Glucose (mg/dL) 224 H 317 H 304 H (75-99) mg/dL Procalcitonin (0.02-0.09) ng/mL Microbiology - Last 24 Hours (Table) 04/28/19 16:00 Blood Culture - Preliminary Blood No Growth after 48 hours 04/26/19 19:57 Blood Culture Gram Stain - Final Blood Blood Culture - Final Gram Positive Bacilli Isolated Gram Positive Bacilli Isolated#2 Assessment and Plan Assessment: Accu-Cheks bronchitis Acute COPD/asthma exacerbation A. fib on Coumadin Chronic kidney disease stage II chronic heart failure Diabetes mellitus Hypertension Hypothyroidism GERD Osteoarthritis History of hernia Plan: This is a pleasant 73 years old female who presents with acute bronchitis with recent history of pseudomonas infection, continue with antibiotics per ID service, currently on Zithromax and sent for me, pulmonary team recommendation, continue with steroids, continue with warfarin and follow up INR level, monitor sugar closely, continue with Lasix and monitor oxygen level Labs and medication were reviewed.. Continue same treatment. Continue with symptomatic treatment. Resume home medication. Monitor lytes and vitals. DVT and GI prophylaxis. Further recommendations of the clinical course of the patient DVT prophylaxis: On Coumadin GI Prophylaxis: Pepcid Prognosis is guarded
[2019-05-01] MEDS: INSULIN ASPART (NovoLOG) 100 UNIT/ML VIAL SQ SCH ×4 (08:10→20:33)
[2019-05-01] MEDS ORDERED: FAMOTIDINE 20 MG/2 ML VIAL IV SCH (09:00)
[2019-05-01] MEDS: BUDESONIDE 1 MG/2 ML NEBU INHALATION SCH ×2 (09:04→21:43)
[2019-05-01] MEDS: FORMOTEROL FUMARATE 20 MCG/2 ML NEBU INHALATION SCH ×2 (09:04→21:42)
[2019-05-01 09:29] LABS: Anisocytosis Slight; Basophils % (A) 0 %; Eosinophils % (A) 1 %; HCT 30.5 % (34.0-46.0); HGB 9.6 gm/dL (11.4-16.0); Hypochromasia Slight; Lymphocytes # (A) 0.6 k/uL (1.0-4.8); Lymphocytes % (A) 9 %; MCH 25.4 pg (25.0-35.0); MCHC 31.4 g/dL (31.0-37.0); MCV 80.9 fL (80.0-100.0); Mean Platelet Volume 7.7; Monocytes # (A) 0.3 k/uL (0-1.0); Monocytes % (A) 4 %; Neutrophils % (A) 86 %; Platelet Count 234 k/uL (150-450); RBC 3.77 m/uL (3.80-5.40); RDW 16.2 % (11.5-15.5)
[2019-05-01 09:42] LABS: INR 2.4 (<1.2); Prothrombin Time 23.1 sec (9.0-12.0)
[2019-05-01] MEDS: INSULIN DETEMIR (LEVEMIR) 100 UNIT/ML SYR SQ SCH ×2 (10:03→20:21)
[2019-05-01] MEDS: CEFEPIME 2 GM in SODIUM CHLORIDE 0.9% 100 ML IVPB SCH (10:03)
[2019-05-01] MEDS: DILTIAZEM CD 180 MG CAP.ER.24H PO SCH (10:04)
[2019-05-01 11:47] LABS: Glucose,Whole Blood 479 mg/dL (75-99)
--- NOTE | 2019-05-01 11:47 | P.PN ---
Subjective Progress Note Date: 05/01/19 Today's evaluation of the potential thousand and 20, the final cultures from the sputum is not back yet. This is a gram-negative bacillus. Clinically she is looking great. We were awaiting for the gram stains and cultures to get finalized so that we can decide on the home antibiotics. However, clinically the patient is doing much better and this can be done also on outpatient basis. I'm going to talk to the primary care team for possible discharge this patient home to be followed up on outpatient basis and we can always call her back if there is any antibiotic change. I'm going to contact the lab to see this can be any final results today. Objective - Vital Signs Vital signs: Vital Signs Temp 97.4 F L 05/01/19 05:28 Pulse 84 05/01/19 09:26 Resp 17 05/01/19 05:28 BP 167/63 05/01/19 05:28 Pulse Ox 99 05/01/19 09:04 Intake & Output 04/30/19 05/01/19 05/01/19 18:59 06:59 18:59 Other: # Voids 1 2 - Exam General Appearance no diaphoresis, no respiratory distress, speech not interrupted by breaths, no dyspnea, no pallor, not cachectic, well nourished, appears well, obesity HEENT no pursed lip breathing, no jugular venous distention, no mucous membrane cyanosis, no perioral cyanosis, mallampati classification: class 1, Mallampati Classification: Class 4 Chest no barrel chest, no retractions, no sternocleidomastoid muscle contractions, no supraclavicular retractions, no intercostal retractions, no decreased air movement, no rhonchi, no hyperinflation, (normal) adventitious sounds: rales / crackles: bilaterally: midlung carrera, prolonged expiratory wheezing, decreased air movement and there is prolongation of the exhalation phase of breathing and diffuse expiratory wheezes. Heart no right ventricular heave, no distant heart sounds, no s3 gallop, (normal) jugular vein: jugular venous distention: by 0cm, (normal) jugular vein GI bowel sounds: hyperactive (borborygmi), bowel sounds: diminished or absent Extremities no cyanosis, no clubbing, edema (trace edema lower extremities) Neurologic no decreased mental status, no somnolence, no confusion Assisstive Devices: ambulates with no assitive devices Gait and Mobility: gait WNL, full weight bearing Examination of the skin revealed no evidence of significant rashes, suspicious appearing nevi or other concerning lesions. - Labs CBC & Chem 7: 05/01/19 08:30 05/01/19 10:49 Labs: Abnormal Lab Results - Last 24 Hours (Table) 04/30/19 04/30/19 04/30/19 Range/Units 09:19 14:10 16:10 RBC (3.80-5.40) m/uL Hgb (11.4-16.0) gm/dL Hct (34.0-46.0) % RDW (11.5-15.5) % Lymphocytes # (1.0-4.8) k/uL PT (9.0-12.0) sec INR (<1.2) Sodium 133 L (137-145) mmol/L Potassium 6.0 H (3.5-5.1) mmol/L Carbon Dioxide 18 L (22-30) mmol/L BUN 52 H (7-17) mg/dL Creatinine 1.17 H (0.52-1.04) mg/dL Glucose 391 H (74-99) mg/dL POC Glucose (mg/dL) 395 H 284 H (75-99) mg/dL 04/30/19 04/30/19 05/01/19 Range/Units 16:57 21:36 06:58 RBC (3.80-5.40) m/uL Hgb (11.4-16.0) gm/dL Hct (34.0-46.0) % RDW (11.5-15.5) % Lymphocytes # (1.0-4.8) k/uL PT (9.0-12.0) sec INR (<1.2) Sodium (137-145) mmol/L Potassium (3.5-5.1) mmol/L Carbon Dioxide (22-30) mmol/L BUN (7-17) mg/dL Creatinine (0.52-1.04) mg/dL Glucose (74-99) mg/dL POC Glucose (mg/dL) 224 H 317 H 304 H (75-99) mg/dL 05/01/19 05/01/19 05/01/19 Range/Units 08:30 08:30 10:49 RBC 3.77 L (3.80-5.40) m/uL Hgb 9.6 L (11.4-16.0) gm/dL Hct 30.5 L (34.0-46.0) % RDW 16.2 H (11.5-15.5) % Lymphocytes # 0.6 L (1.0-4.8) k/uL PT 23.1 H (9.0-12.0) sec INR 2.4 H (<1.2) Sodium (137-145) mmol/L Potassium 5.2 H (3.5-5.1) mmol/L Carbon Dioxide (22-30) mmol/L BUN (7-17) mg/dL Creatinine (0.52-1.04) mg/dL Glucose (74-99) mg/dL POC Glucose (mg/dL) (75-99) mg/dL Microbiology - Last 24 Hours (Table) 04/28/19 16:00 Blood Culture - Preliminary Blood No Growth after 48 hours 04/26/19 19:57 Blood Culture Gram Stain - Final Blood Blood Culture - Final Gram Positive Bacilli Isolated Gram Positive Bacilli Isolated#2 Assessment and Plan Plan: 1 chronic shortness of breath with interval worsening possibly secondary to acute bronchitis. Unsure if there is any persistence with pseudomonal infection. Note that the patient have a pulmonary bacterial infection due to Pseudomonas that was initially treated with Levaquin and subsequently with IV cefepime and completed a 2 week course. Chest x-rays showing some coarse interstitial changes. Rule out underlying fibrosis/scarring. Based on all this, I performed a CAT scan of the chest that showed some minimal reticular changes and no other changes in lung bases without evidence of any clear-cut consolidation. The patient was able to give me a sputum sample that showing gram-negative bacillus. It final culture sensitivity is pending. Clinically improving. Final cultures are not resulted and I discussed with infectious disease and I think it's reasonable to send her home with oral antibiotics in follow-up on the cultures on outpatient basis. 2 chronic hypoxemic respiratory failure 3 COPD/asthma 4 diabetes mellitus 5 paroxysmal atrial fibrillation current rhythm is sinus 6 stage II chronic kidney disease with a GFR of 54 7 left upper extremity DVT secondary to PICC line 8 hypertension 9 osteoarthritis 10 hypothyroidism Plan Switch to oral antibiotics of choice of IV and consider discharging this patient home today Resume Coumadin to achieve an INR between 2 and 3, Coumadin was resumed and restarted, and Lovenox for bridging therapy Agree on bronchodilators This continued IV Solu-Medrol and switch this patient to oral prednisone CAT scan of the chest was noted Awaiting sputum analysis Monitor the blood sugar and cover the patient with sliding scale coverage Monitor PT/INR, level is therapeutic Infectious diseases on the case. Possible discharge home today.
[2019-05-01] MEDS ORDERED: INSULIN ASPART (NovoLOG) 100 UNIT/ML VIAL SQ ONE ×2 (12:00→14:10)
--- NOTE | 2019-05-01 12:45 | XR ---
EXAMINATION TYPE: XR chest 1V portable DATE OF EXAM: 05/01/2019 CLINICAL HISTORY: Hypoxia. TECHNIQUE: Single AP portable upright view of the chest is obtained. COMPARISON: Chest x-ray from 5 days earlier and older studies. CT chest 4 days ago. FINDINGS: Redemonstration of levoconvex scoliosis centered in the mid lumbar spine. Redemonstration of cardiomegaly and chronic parenchymal changes bilaterally without suspicious new focal airspace opa city, pleural effusion, or pneumothorax seen bilaterally. Persistent reticulonodular opacities identi fied bilaterally throughout the upper and lower lungs greatest in the bases. Slightly elevated left h emidiaphragm redemonstrated IMPRESSION: Overall stable findings, diffuse bilateral reticulonodular infiltrates greatest in the lung bases could reflect products of atypical infection. No new focal infiltrate. Background cardiome bj and mild to moderate chronic parenchymal fibrotic changes redemonstrated.
[2019-05-01] MEDS: predniSONE 20 MG TAB PO SCH (12:52)
[2019-05-01 13:55] LABS: Glucose,Whole Blood 512 mg/dL (75-99)
[2019-05-01] MEDS ORDERED: GLIMEPIRIDE 2 MG TAB PO ONE ×2 (14:09→15:00)
[2019-05-01] MEDS ORDERED: GLIMEPIRIDE 2 MG TAB PO SCH (14:15)
[2019-05-01] MEDS: SODIUM CHLORIDE 0.45% 1,000 ML IV SCH (15:13)
[2019-05-01 16:58] LABS: Glucose,Whole Blood 404 mg/dL (75-99)
[2019-05-01 18:09] LABS: Glucose,Whole Blood 258 mg/dL (75-99)
[2019-05-01] MEDS: WARFARIN 5 MG TAB PO SCH (18:19)
[2019-05-01] MEDS: MONTELUKAST 10 MG TAB PO SCH (20:21)
[2019-05-01 20:30] LABS: Glucose,Whole Blood 210 mg/dL (75-99)
--- NOTE | 2019-05-02 00:16 | PN ---
PROGRESS NOTE DATE OF SERVICE: 05/01/2019 REASON FOR FOLLOWUP: 1. Positive blood culture contamination. 2. Pseudomonas tracheobronchitis. INTERVAL HISTORY: The patient is currently afebrile. She has been breathing comfortably. The patient did have a congested cough, not bringing up any sputum. No nausea, vomiting. No abdominal pain, no diarrhea. PHYSICAL EXAMINATION: Blood pressure 153/72 with a pulse of 85, temperature 97.5. She is 97% on 2 L nasal cannula. General description is an elderly female up in the bed in no distress. Respiratory system: Unlabored breathing. Some coarse breath sounds in the bases. No wheeze. Heart S1, S2. Regular rate and rhythm. Abdomen soft, no tenderness. Last sputum with ( ) sensitivity to the cefepime ( ). Blood culture has been negative. DIAGNOSTIC IMPRESSION AND PLAN: 1. Patient with a positive blood culture with gram-positive likely skin contamination. 2. Patient with a positive sputum with Pseudomonas in this patient who did have intermediate sensitivity cefepime. Antibiotic switched to Fortaz 2 g q8. However, has clinical suspicion of underlying pneumonia. Antibiotic can be discontinued. Discharge and monitor clinical course closely. MMODL / IJN: [id number] /
[2019-05-02] MEDS: LEVOTHYROXINE 50 MCG TAB PO SCH (05:37)
[2019-05-02 07:17] LABS: Glucose,Whole Blood 118 mg/dL (75-99)
[2019-05-02] MEDS ORDERED: GLIMEPIRIDE 2 MG TAB PO SCH (07:30)
[2019-05-02] MEDS: INSULIN ASPART (NovoLOG) 100 UNIT/ML VIAL SQ SCH ×4 (07:43→21:42)
[2019-05-02] MEDS: IPRATROPIUM-ALBUTEROL 3 ML NEB INHALATION PRN ×3 (08:10→18:43)
[2019-05-02] MEDS: FORMOTEROL FUMARATE 20 MCG/2 ML NEBU INHALATION SCH ×2 (08:10→18:43)
[2019-05-02] MEDS: BUDESONIDE 1 MG/2 ML NEBU INHALATION SCH ×2 (08:10→18:43)
[2019-05-02] MEDS: CITALOPRAM HYDROBROMIDE 20 MG TAB PO SCH (08:37)
[2019-05-02] MEDS: LOSARTAN 50 MG TAB PO SCH (08:37)
[2019-05-02] MEDS: POTASSIUM CHLORIDE ER 20 MEQ TAB.ER PO SCH ×2 (08:37→20:42)
[2019-05-02] MEDS: INSULIN DETEMIR (LEVEMIR) 100 UNIT/ML SYR SQ SCH (08:37)
[2019-05-02] MEDS: FUROSEMIDE 40 MG TAB PO SCH (08:37)
[2019-05-02] MEDS: amLODIPine 5 MG TAB PO SCH (08:38)
[2019-05-02] MEDS: predniSONE 20 MG TAB PO SCH (08:38)
[2019-05-02] MEDS: AZITHROMYCIN 500 MG TAB PO SCH (08:38)
[2019-05-02] MEDS: FAMOTIDINE 20 MG TAB PO SCH (08:38)
[2019-05-02] MEDS: ATORVASTATIN 10 MG TAB PO SCH (08:38)
[2019-05-02] MEDS: DILTIAZEM CD 180 MG CAP.ER.24H PO SCH (08:39)
[2019-05-02] MEDS ORDERED: CEFEPIME 2 GM in SODIUM CHLORIDE 0.9% 100 ML IVPB SCH (09:00)
[2019-05-02] MEDS: SODIUM CHLORIDE 0.45% 1,000 ML IV SCH (09:23)
[2019-05-02 09:57] LABS: INR 3.1 (<1.2); Prothrombin Time 29.9 sec (9.0-12.0)
[2019-05-02 10:03] LABS: Calcium 9.1 mg/dL (8.4-10.2); Potassium 5.1 mmol/L (3.5-5.1)
--- NOTE | 2019-05-02 11:23 | PN ---
PROGRESS NOTE DATE OF SERVICE: 05/02/2019 REASON FOR FOLLOWUP: 1. Positive blood culture likely contamination. 2. Positive sputum cultures possible tracheobronchitis. INTERVAL HISTORY: The patient is currently afebrile. Patient is breathing comfortably. The patient's cough has decreased in intensity. Less productive. No chest pain. No nausea. No abdominal pain, no diarrhea. PHYSICAL EXAMINATION: Blood pressure is 135/84 with a pulse of 71, temperature 97.3. She is 100% 2 L nasal cannula. General description is an elderly female, up in the chair in no distress. RESPIRATORY SYSTEM: Unlabored breathing, coarse breath sounds bilaterally, no wheeze. HEART: S1, S2. Regular rate and rhythm. ABDOMEN: Soft, no tenderness. LABS: Creatinine is 1.18. No CBC was done today. INR is 3.1. DIAGNOSTIC IMPRESSION AND PLAN: 1. Patient with a positive blood culture, likely skin contamination. Repeat blood culture has been negative. 2. Patient with chronic obstructive pulmonary disease in a patient with tracheobronchitis. Clinically doubt pneumonia, sputum has been Pseudomonas. The patient received about 3-4 days of antibiotic, should be more than enough. No need for antibiotic on discharge. Discussed with admitting physician working on discharge. MMODL / IJN: [id number] /
[2019-05-02 11:52] LABS: Glucose,Whole Blood 110 mg/dL (75-99)
[2019-05-02 14:26] LABS: Glucose,Whole Blood 192 mg/dL (75-99)
[2019-05-02] MEDS: ALPRAZolam 0.5 MG TAB PO PRN ×2 (16:02→23:47)
--- NOTE | 2019-05-02 16:35 | P.PN ---
Subjective Progress Note Date: 05/02/19 On today's evaluation, the patient is a bit frustrated. Unfortunately, Pseudomonas growing in her lungs and the patient is currently on IV Fortaz. I'm going to have a discussion with infectious disease regarding the possibility of long-term antibiotic use the PICC line. Her current INR is at 3.1. She has evaluation with warfarin. She has a congested cough. I took her off the IV Solu Medrol yesterday and put her on a prednisone burst taper. No fever. No chills. No nausea vomiting or diarrhea. No other complaints otherwise. Objective - Vital Signs Vital signs: Vital Signs Temp 97.6 F 05/02/19 12:04 Pulse 81 05/02/19 12:04 Resp 20 05/02/19 12:04 BP 162/65 05/02/19 12:40 Pulse Ox 98 05/02/19 12:04 Intake & Output 05/01/19 05/02/19 05/02/19 18:59 06:59 18:59 Intake Total 100 340 Balance 100 340 Intake: Intake, IV Titration 100 Amount Cefepime 2 gm In Sodium 100 Chloride 0.9% 100 ml @ 200 mls/hr IVPB Q12HR [facility] Rx#:[id number] Oral 340 Other: Voiding Method Bedside Commode # Voids 2 2 - Exam General Appearance no diaphoresis, no respiratory distress, speech not interrupted by breaths, no dyspnea, no pallor, not cachectic, well nourished, appears well, obesity HEENT no pursed lip breathing, no jugular venous distention, no mucous membrane cyanosis, no perioral cyanosis, mallampati classification: class 1, Mallampati Classification: Class 4 Chest no barrel chest, no retractions, no sternocleidomastoid muscle contractions, no supraclavicular retractions, no intercostal retractions, no decreased air movement, no rhonchi, no hyperinflation, (normal) adventitious sounds: rales / crackles: bilaterally: midlung carrera, prolonged expiratory wheezing, decreased air movement and there is prolongation of the exhalation phase of breathing and diffuse expiratory wheezes. Heart no right ventricular heave, no distant heart sounds, no s3 gallop, (normal) jugular vein: jugular venous distention: by 0cm, (normal) jugular vein GI bowel sounds: hyperactive (borborygmi), bowel sounds: diminished or absent Extremities no cyanosis, no clubbing, edema (trace edema lower extremities) Neurologic no decreased mental status, no somnolence, no confusion Assisstive Devices: ambulates with no assitive devices Gait and Mobility: gait WNL, full weight bearing Examination of the skin revealed no evidence of significant rashes, suspicious appearing nevi or other concerning lesions. - Labs CBC & Chem 7: 05/01/19 08:30 05/02/19 09:10 Labs: Abnormal Lab Results - Last 24 Hours (Table) 05/01/19 05/01/19 05/01/19 Range/Units 16:57 18:08 20:27 PT (9.0-12.0) sec INR (<1.2) Sodium (137-145) mmol/L Carbon Dioxide (22-30) mmol/L BUN (7-17) mg/dL Creatinine (0.52-1.04) mg/dL Glucose (74-99) mg/dL POC Glucose (mg/dL) 404 H 258 H 210 H (75-99) mg/dL 05/02/19 05/02/19 05/02/19 Range/Units 06:57 09:10 09:10 PT 29.9 H (9.0-12.0) sec INR 3.1 H (<1.2) Sodium 136 L (137-145) mmol/L Carbon Dioxide 21 L (22-30) mmol/L BUN 49 H (7-17) mg/dL Creatinine 1.18 H (0.52-1.04) mg/dL Glucose 162 H (74-99) mg/dL POC Glucose (mg/dL) 118 H (75-99) mg/dL 05/02/19 05/02/19 Range/Units 11:50 14:21 PT (9.0-12.0) sec INR (<1.2) Sodium (137-145) mmol/L Carbon Dioxide (22-30) mmol/L BUN (7-17) mg/dL Creatinine (0.52-1.04) mg/dL Glucose (74-99) mg/dL POC Glucose (mg/dL) 110 H 192 H (75-99) mg/dL Microbiology - Last 24 Hours (Table) 04/27/19 18:16 Gram Stain - Final Sputum Sputum Culture - Final Pseudomonas aeruginosa 04/28/19 16:00 Blood Culture - Preliminary Blood No Growth after 72 hours Assessment and Plan Plan: 1 chronic shortness of breath with interval worsening possibly secondary to acute bronchitis. The patient has persistent growth of pseudomonas aeruginosa and currently she is on IV Fortaz. We'll discuss with ID regarding antibiotic choice and duration of treatment. 2 chronic hypoxemic respiratory failure 3 COPD/asthma 4 diabetes mellitus 5 paroxysmal atrial fibrillation current rhythm is sinus 6 stage II chronic kidney disease with a GFR of 54 7 left upper extremity DVT secondary to PICC line 8 hypertension 9 osteoarthritis 10 hypothyroidism Plan Continue IV Fortaz Consider a PICC line for outpatient antibiotic treatment. We'll discuss this with ID.
--- NOTE | 2019-05-02 16:42 | P.PN ---
Subjective This is a pleasant 73 years old female with past medical history of atrial fibrillation, heart failure, COPD/asthma, diabetes mellitus, hypertension, hypothyroidism, GERD, hearing difficulty, osteoarthritis, hiatal hernia, recent Pseudomonas bronchitis. Patient presents with 04/26/2019 with respiratory symptoms, patient has been treated with antibiotics with Zithromax and cefepime for acute tracheal bronchitis and COPD, also patient was started on Solu-Medrol 40 mg, she is also on Coumadin for A. fib and her INR was 1.6 yesterday. Patient is still complaining of from dyspnea, exertional dyspnea was complaining of some phlegm, glucose was evaluated and oxygen is 2-3% with a saturation of 99%, sputum culture is growing gram-negative bacilli with the results are still pending 05/01/2019 Patient similar to yesterday he feels dyspneic and wheezing with some coughing. She states she is improved compared to admission but not back to normal close to normal yet. She still waiting for sputum culture for gram-negative bacilli to finalize. Sugar still on the high site after increasing her Levemir from 33 up to 50 units yesterday. We will add 15 more units this morning. Also I talked to the patient and she opened to the idea to go home ECF for rehab is indicated, will go on to reconsult PT/OT 05/02/2019 Patient sugar was uncontrolled today however today is better controlled, her breathing his back close to baseline and pulmonary catheter for discharge on tapered dose of steroids with no need for antibiotics as per discussion with pulmonary and infectious disease teams of the recommendation. however her INR went up to 3.1, I discussed the case with her PCP Dr. Medrano she states that the patient is known compliant therapy and time. She does not attend follow-up this as the patient refused home health care today, when discussed with the patient she admits that she since the passing away of her she has financial difficulties, she cannot afford the co-pay of her PCP visit of $35. Also she says she pays out of money for her insulin, patient was kindly for this reason, because of this were going to hold her discharge today as a social worker clinical for further evaluation, we'll try to switch her Coumadin to Eliquis and check with insurance coverage and co-pay. Patient agrees with her appointment with Dr. Medrano on this coming Saturday 05/06 Objective - Vital Signs Vital signs: Vital Signs Temp 97.6 F 05/02/19 12:04 Pulse 81 05/02/19 12:04 Resp 20 05/02/19 12:04 BP 162/65 05/02/19 12:40 Pulse Ox 98 05/02/19 12:04 Intake & Output 05/01/19 05/02/19 05/02/19 18:59 06:59 18:59 Intake Total 100 340 Balance 100 340 Intake: Intake, IV Titration 100 Amount Cefepime 2 gm In Sodium 100 Chloride 0.9% 100 ml @ 200 mls/hr IVPB Q12HR [facility] Rx#:[id number] Oral 340 Other: Voiding Method Bedside Commode # Voids 2 2 - Exam GENERAL: The patient is alert and oriented x3, not in any acute distress. Well developed, well nourished. HEENT: Pupils are round and equally reacting to light. EOMI. No scleral icterus. No conjunctival pallor. Normocephalic, atraumatic. No pharyngeal erythema. No thyromegaly. CARDIOVASCULAR: S1 and S2 present. No murmurs, rubs, or gallops. -PULMONARY: Chest is clear to auscultation, bilateral scattered wheezing ABDOMEN: Soft, nontender, nondistended, normoactive bowel sounds. No palpable organomegaly. MUSCULOSKELETAL: No joint swelling or deformity. EXTREMITIES: No cyanosis, clubbing, or pedal edema. NEUROLOGICAL: Gross neurological examination did not reveal any focal deficits. SKIN: No rashes. no petechiae. - Labs CBC & Chem 7: 05/01/19 08:30 05/02/19 09:10 Labs: Abnormal Lab Results - Last 24 Hours (Table) 05/01/19 05/01/19 05/01/19 Range/Units 16:57 18:08 20:27 PT (9.0-12.0) sec INR (<1.2) Sodium (137-145) mmol/L Carbon Dioxide (22-30) mmol/L BUN (7-17) mg/dL Creatinine (0.52-1.04) mg/dL Glucose (74-99) mg/dL POC Glucose (mg/dL) 404 H 258 H 210 H (75-99) mg/dL 03/11/20 03/11/20 03/11/20 Range/Units 06:57 09:10 09:10 PT 29.9 H (9.0-12.0) sec INR 3.1 H (<1.2) Sodium 136 L (137-145) mmol/L Carbon Dioxide 21 L (22-30) mmol/L BUN 49 H (7-17) mg/dL Creatinine 1.18 H (0.52-1.04) mg/dL Glucose 162 H (74-99) mg/dL POC Glucose (mg/dL) 118 H (75-99) mg/dL 05/02/19 05/02/19 Range/Units 11:50 14:21 PT (9.0-12.0) sec INR (<1.2) Sodium (137-145) mmol/L Carbon Dioxide (22-30) mmol/L BUN (7-17) mg/dL Creatinine (0.52-1.04) mg/dL Glucose (74-99) mg/dL POC Glucose (mg/dL) 110 H 192 H (75-99) mg/dL Microbiology - Last 24 Hours (Table) 04/27/19 18:16 Gram Stain - Final Sputum Sputum Culture - Final Pseudomonas aeruginosa 04/28/19 16:00 Blood Culture - Preliminary Blood No Growth after 72 hours Assessment and Plan Assessment: Acute trachealbronchitis secondary to pseudomonas infection, improved and finish her antibiotic Acute COPD/asthma exacerbation A. fib on Coumadin Failure of Coumadin therapy with poor compliance, associated with Subtherapeutic INR followed by supratherapeutic INR Noncompliance due to financial difficulties Chronic kidney disease stage II chronic heart failure Diabetes mellitus Hypertension Hypothyroidism GERD Osteoarthritis History of hernia Plan: This is a pleasant 73 years old female who presents with acute bronchitis with recent history of pseudomonas infection, continue with antibiotics per ID service, currently on Zithromax and sent for me, pulmonary team recommendation, continue with steroids, hold warfarin for supratherapeutic INR of 3.1 today and follow up INR level, consult social worker clinical for Eliquis co-pay and patient agrees then switch Coumadin till it was on discharge, change insulin from the ventilator/Lantus to 70:30 15 units twice a day and follow-up insulin level, consult social worker clinical worker for further assistance for fresh financial problems and medication monitor sugar closely, continue with Lasix and monitor oxygen level Labs and medication were reviewed.. Continue same treatment. Continue with symptomatic treatment. Resume home medication. Monitor lytes and vitals. DVT and GI prophylaxis. Further recommendations of the clinical course of the patient DVT prophylaxis: On Coumadin GI Prophylaxis: Pepcid Prognosis is guarded
[2019-05-02 16:52] LABS: Glucose,Whole Blood 181 mg/dL (75-99)
[2019-05-02] MEDS: INSULN ASP PRT/INSULIN ASPART 100 UNIT/ML 10 ML VIAL SQ SCH (17:26)
[2019-05-02] MEDS ORDERED: WARFARIN 2 MG TAB PO ONE (18:00)
[2019-05-02] MEDS: MONTELUKAST 10 MG TAB PO SCH (20:42)
[2019-05-02 21:30] LABS: Glucose,Whole Blood 318 mg/dL (75-99)
[2019-05-03] MEDS: SODIUM CHLORIDE 0.45% 1,000 ML IV SCH (04:51)
[2019-05-03] MEDS: LEVOTHYROXINE 50 MCG TAB PO SCH (05:02)
[2019-05-03 07:12] LABS: Glucose,Whole Blood 87 mg/dL (75-99)
[2019-05-03] MEDS: INSULIN ASPART (NovoLOG) 100 UNIT/ML VIAL SQ SCH ×3 (07:18→17:15)
[2019-05-03] MEDS: BUDESONIDE 1 MG/2 ML NEBU INHALATION SCH (07:42)
[2019-05-03] MEDS: IPRATROPIUM-ALBUTEROL 3 ML NEB INHALATION PRN ×3 (07:42→16:10)
[2019-05-03] MEDS: FORMOTEROL FUMARATE 20 MCG/2 ML NEBU INHALATION SCH (07:42)
[2019-05-03] MEDS: INSULN ASP PRT/INSULIN ASPART 100 UNIT/ML 10 ML VIAL SQ SCH ×2 (08:26→17:28)
[2019-05-03] MEDS: CITALOPRAM HYDROBROMIDE 20 MG TAB PO SCH (08:27)
[2019-05-03] MEDS: predniSONE 20 MG TAB PO SCH (08:27)
[2019-05-03] MEDS: POTASSIUM CHLORIDE ER 20 MEQ TAB.ER PO SCH (08:28)
[2019-05-03] MEDS: FUROSEMIDE 40 MG TAB PO SCH (08:28)
[2019-05-03] MEDS: amLODIPine 5 MG TAB PO SCH (08:28)
[2019-05-03] MEDS: ATORVASTATIN 10 MG TAB PO SCH (08:28)
[2019-05-03] MEDS: FAMOTIDINE 20 MG TAB PO SCH (08:28)
[2019-05-03] MEDS: LOSARTAN 50 MG TAB PO SCH (08:28)
[2019-05-03] MEDS: AZITHROMYCIN 500 MG TAB PO SCH (08:28)
[2019-05-03] MEDS: DILTIAZEM CD 180 MG CAP.ER.24H PO SCH (08:28)
[2019-05-03 08:38] LABS: Glucose,Whole Blood 121 mg/dL (75-99)
[2019-05-03 10:28] LABS: INR 2.7 (<1.2); Prothrombin Time 26.5 sec (9.0-12.0)
[2019-05-03 10:36] LABS: Calcium 8.6 mg/dL (8.4-10.2); Potassium 5.1 mmol/L (3.5-5.1)
[2019-05-03 12:08] LABS: Glucose,Whole Blood 80 mg/dL (75-99)
[2019-05-03 14:44] VITALS: BMI 35.3
--- NOTE | 2019-05-03 15:17 | P.PN ---
Subjective Progress Note Date: 05/03/19 On 04/30/2019 patient seen in follow-up on general medical floor, she is improving, but still dyspneic and bronchospastic, she is on 2 L of oxygen pulse ox 90%, afebrile, hemodynamically stable, blood cultures showed 2 different types of gram-negative bacilli, final cultures pending, sputum culture showed gram-negative bacilli, follow-up blood cultures have shown no growth so far, antibiotic coverage currently with Zithromax and cefepime, ID service is following. Remains on IV site medical, and breathing treatments, no acute events overnight, patient would like to go home, however we're awaiting final identification of the organisms and patient's microbiology On 05/03/2019 patient seen in follow-up on general medical floor, she is awake and alert, she is sitting up in the recliner, she states her breathing is improving, she is less congested, physical exam reveals scattered wheezes and rhonchi, and congested cough, but overall patient is improving, patient is currently on a combination of Zithromax and Fortaz for evidence of pseudomonas aeruginosa in the sputum cultures, blood cultures were positive for gram- positive bacill bacteremia. No fever or chills, patient continues on breathing treatments, vital signs stable, no acute events overnight, she is requesting to go home today. Objective - Vital Signs Vital signs: Vital Signs Temp 97.4 F L 05/03/19 07:00 Pulse 76 05/03/19 11:49 Resp 20 05/03/19 07:00 BP 157/82 05/03/19 07:00 Pulse Ox 100 05/03/19 07:42 Intake & Output 05/02/19 05/03/19 05/03/19 18:59 06:59 18:59 Intake Total 440 200 Balance 440 200 Weight 93.4 kg Intake: Oral 440 200 Other: Voiding Method Toilet # Voids 2 1 - Exam GENERAL EXAM: Alert, very pleasant, 73-year-old white female, on 2 L of oxygen, comfortable in no apparent distress. HEAD: Normocephalic/atraumatic. EYES: Normal reaction of pupils, equal size. Conjunctiva pink, sclera white. NOSE: Clear with pink turbinates. THROAT: No erythema or exudates. NECK: No masses, no JVD, no thyroid enlargement, no adenopathy. CHEST: No chest wall deformity. Symmetrical expansion. LUNGS: Equal air entry with diffuse wheezes bilaterally CVS: Regular rate and rhythm, normal S1 and S2, no gallops, no murmurs, no rubs ABDOMEN: Soft, nontender. No hepatosplenomegaly, normal bowel sounds, no guarding or rigidity. EXTREMITIES: No clubbing, no edema, no cyanosis, 2+ pulses and upper and lower extremities. MUSCULOSKELETAL: Muscle strength and tone normal. SPINE: No scoliosis or deformity SKIN: No rashes CENTRAL NERVOUS SYSTEM: Alert and oriented -3. No focal deficits, tone is normal in all 4 extremities. PSYCHIATRIC: Alert and oriented -3. Appropriate affect. Intact judgment and insight. - Labs CBC & Chem 7: 05/01/19 08:30 05/03/19 09:53 Labs: Abnormal Lab Results - Last 24 Hours (Table) 05/02/19 05/02/19 05/03/19 Range/Units 16:42 21:21 08:34 PT (9.0-12.0) sec INR (<1.2) Sodium (137-145) mmol/L BUN (7-17) mg/dL Creatinine (0.52-1.04) mg/dL Glucose (74-99) mg/dL POC Glucose (mg/dL) 181 H 318 H 121 H (75-99) mg/dL 05/03/19 05/03/19 Range/Units 09:53 09:53 PT 26.5 H (9.0-12.0) sec INR 2.7 H (<1.2) Sodium 135 L (137-145) mmol/L BUN 44 H (7-17) mg/dL Creatinine 1.07 H (0.52-1.04) mg/dL Glucose 158 H (74-99) mg/dL POC Glucose (mg/dL) (75-99) mg/dL Microbiology - Last 24 Hours (Table) 04/28/19 16:00 Blood Culture - Preliminary Blood No Growth after 96 hours Assessment and Plan Plan: Assessment: 1 chronic shortness of breath with interval worsening possibly secondary to acute bronchitis. Unsure if there is any persistence with pseudomonal infection. Note that the patient have a pulmonary bacterial infection due to Pseudomonas that was initially treated with Levaquin and subsequently with IV cefepime and completed a 2 week course. Chest x-rays showing some coarse interstitial changes. Rule out underlying fibrosis/scarring. Based on all this, I performed a CAT scan of the chest that showed some minimal reticular changes and no other changes in lung bases without evidence of any clear-cut consolidation. The patient was able to give me a sputum sample that showing gram-negative bacillus. It final culture sensitivity is pending. Clinically improving. The patient was seen by infectious disease and the patient was placed on IV cefepime. 2 chronic hypoxemic respiratory failure 3 COPD/asthma 4 diabetes mellitus 5 paroxysmal atrial fibrillation current rhythm is sinus 6 stage II chronic kidney disease with a GFR of 54 7 left upper extremity DVT secondary to PICC line 8 hypertension 9 osteoarthritis 10 hypothyroidism 11 gram-negative bacteremia, blood cultures have shown 2 types of gram-negative bacilli, final culture is pending Plan: Patient is improving, less dyspneic and congested, she remains on Zithromax and Fortaz, she is improving, she is on oral prednisone, breathing treatments, she is requesting to go home today, she has had no fever or chills. From pulmonary perspective patient is stable for discharge home today, she will need outpatient follow-up in the office, ID service recommendations have been noted and the recommendation is for no antibiotics at this time upon discharge. I performed a history & physical examination of the patient and discussed their management with my nurse practitioner, Maryjo Parisi. I reviewed the nurse practitioner's note and agree with the documented findings and plan of care. Lung sounds are positive for diffuse wheezes throughout the lung carrera. The findings and the impression was discussed with the patient. I attest to the documentation by the nurse practitioner. Time with Patient: Less than 30
[2019-05-03 15:25] VITALS: BP 169/76; TEMP 97.8
[2019-05-03 16:13] VITALS: RESP 18
[2019-05-03 16:24] VITALS: PULSE 72
--- NOTE | 2019-05-03 17:04 | P.DS ---
Providers Date of admission: 04/26/19 22:35 Attending physician: Nixon Gamboa Consults: 04/26/19 22:34 Consult Physician Routine Consulting Provider: Meme Mendiola Consult Reason/Comments: known Do you want consulting provider notified?: Yes 04/28/19 09:50 Consult Physician Routine Consulting Provider: Claire Apple Consult Reason/Comments: Positive blood cultures Do you want consulting provider notified?: Yes Placement Type Exists?: Yes Primary care physician: Verona Medrano [facility] Course: 73 years old female with past medical history of atrial fibrillation, heart failure, COPD/asthma, diabetes mellitus, hypertension, hypothyroidism, GERD, hearing difficulty, osteoarthritis, hiatal hernia, recent Pseudomonas bronchitis. Patient presents with 04/26/2019 with respiratory symptoms, patient has been treated with antibiotics with Zithromax and cefepime for acute tracheal bronchitis and COPD, also patient was started on Solu-Medrol 40 mg, she is also on Coumadin for A. fib and her INR was 1.6 yesterday. Patient is still complaining of from dyspnea, exertional dyspnea was complaining of some phlegm, glucose was evaluated and oxygen is 2-3% with a saturation of 99%, sputum culture is growing gram-negative bacilli with the results are still pending 05/01/2019 Patient similar to yesterday he feels dyspneic and wheezing with some coughing. She states she is improved compared to admission but not back to normal close to normal yet. She still waiting for sputum culture for gram-negative bacilli to finalize. Sugar still on the high site after increasing her Levemir from 33 up to 50 units yesterday. We will add 15 more units this morning. Also I talked to the patient and she opened to the idea to go home ECF for rehab is indicated, will go on to reconsult PT/OT 05/02/2019 Patient sugar was uncontrolled today however today is better controlled, her breathing his back close to baseline and pulmonary catheter for discharge on tapered dose of steroids with no need for antibiotics as per discussion with pulmonary and infectious disease teams of the recommendation. however her INR went up to 3.1, I discussed the case with her PCP Dr. Medrano she states that the patient is known compliant therapy and time. She does not attend follow-up this as the patient refused home health care today, when discussed with the patient she admits that she since the passing away of her she has financial difficulties, she cannot afford the co-pay of her PCP visit of $35. Also she says she pays out of money for her insulin, patient was kindly for this reason, because of this were going to hold her discharge today as a social insurance adviser for further evaluation, we'll try to switch her Coumadin to Eliquis and check with insurance coverage and co-pay. 05/03/2019 Patient is requesting to go home still has some wheezing on exam patient is agreeable for a $40 co-pay for Eliquis and patient is being switched to Eliquis and was asked to take Eliquis from day after her INR is 2.7 today. Discontinuing Coumadin. Patient was started on 70/30 Novolin insulin patient will be discharged on 10 units twice a day patient's blood sugars are in the 90s on 15 twice a day and patient is go to wean the steroids because of which do not believe she'll require 15. As 70/30 Novolin is cheaper. Patient has Pseudomonas in the sputum and infectious disease not recommending any continuat ion of antibiotics IV antibiotics at this time. Patient was asked to come back if her symptoms get worse by me and by pulmonology as well. PHYSICAL EXAMINATION: GENERAL: The patient is alert and oriented x3, not in any acute distress. Well developed, well nourished. HEENT: Pupils are round and equally reacting to light. EOMI. No scleral icterus. No conjunctival pallor. Normocephalic, atraumatic. No pharyngeal erythema. No thyromegaly. CARDIOVASCULAR: S1 and S2 present. No murmurs, rubs, or gallops. PULMONARY: Rhonchi in the right posterior inferior lung carrera with some expiratory wheezing ABDOMEN: Soft, nontender, nondistended, normoactive bowel sounds. No palpable organomegaly. MUSCULOSKELETAL: No joint swelling or deformity. EXTREMITIES: No cyanosis, clubbing, or pedal edema. NEUROLOGICAL: Gross neurological examination did not reveal any focal deficits. SKIN: No rashes. Assessment and Plan Assessment: Acute trachealbronchitis patient does have tracheobronchitis also pseudomonal bronchitis cannot be ruled out patient received 3-4 days of antibiotics for pseudomonal bronchitis and total of 7 days of antibiotic and infectious disease is not recommending continuation of further antibiotic and did Pseudomonas can be just colonizer as well. Acute COPD/asthma exacerbation A. fib on Coumadin Failure of Coumadin therapy with poor compliance, associated with Subtherapeutic INR followed by supratherapeutic INR, patient was switched to Eliquis by Dr. nunez and patient is being discharged on that medication Noncompliance due to financial difficulties Chronic kidney disease stage II chronic heart failure Diabetes mellitus Hypertension Hypothyroidism GERD Osteoarthritis History of hernia Patient Condition at Discharge: Fair Plan - Discharge Summary Discharge Rx Participant: No New Discharge Prescriptions: New Apixaban [Eliquis] 5 mg PO BID 30 Days #60 tab amLODIPine [Norvasc] 5 mg PO DAILY #30 tab Insuln Asp Prt/Insulin Aspart [NovoLOG MIX 70-30 VIAL] 15 unit SQ AC-BID #3 vial predniSONE 10 mg PO DAILY #30 tab Continue Diltiazem HCl [Diltiazem HCl 24Hr ER] 180 mg PO DAILY Alendronate Sodium [Fosamax] 70 mg PO FR Lovastatin [Mevacor] 40 mg PO DAILY Citalopram Hydrobromide [Citalopram HBr] 40 mg PO DAILY ALPRAZolam [Xanax] 0.5 mg PO TID Furosemide [Lasix] 40 mg PO DAILY Ipratropium Nebulized [Atrovent Nebulized 0.2 MG/ML] 0.5 mg INHALATION RT-QID Levothyroxine Sodium [Synthroid] 50 mg PO DAILY Losartan [Cozaar] 50 mg PO DAILY Potassium Chloride [Klor-Con 20] 20 meq PO BID traMADol HCL 50 mg PO TID PRN PRN Reason: Pain Zafirlukast [Accolate] 20 mg PO BID Insulin Regular, Human [NovoLIN R] See Protocol SQ ACHS PRN PRN Reason: Blood Sugar - High Albuterol Nebulized [Ventolin Nebulized] 2.5 mg INHALATION RT-QID Discontinued Insulin Glargine [Lantus] 30 unit SQ HS Warfarin [Coumadin] 5 mg PO SUMOTUWETHSA Warfarin [Coumadin] 7.5 mg PO FR Discharge Medication List ALPRAZolam [Xanax] 0.5 mg PO TID 01/16/19 [History] Alendronate Sodium [Fosamax] 70 mg PO FR 01/16/19 [History] Citalopram Hydrobromide [Citalopram HBr] 40 mg PO DAILY 01/16/19 [History] Diltiazem HCl [Diltiazem HCl 24Hr ER] 180 mg PO DAILY 01/16/19 [History] Furosemide [Lasix] 40 mg PO DAILY 01/16/19 [History] Ipratropium Nebulized [Atrovent Nebulized 0.2 MG/ML] 0.5 mg INHALATION RT-QID 01/16/19 [History] Levothyroxine Sodium [Synthroid] 50 mg PO DAILY 01/16/19 [History] Losartan [Cozaar] 50 mg PO DAILY 01/16/19 [History] Lovastatin [Mevacor] 40 mg PO DAILY 01/16/19 [History] Potassium Chloride [Klor-Con 20] 20 meq PO BID 01/16/19 [History] Zafirlukast [Accolate] 20 mg PO BID 01/16/19 [History] traMADol HCL 50 mg PO TID PRN 01/16/19 [History] Insulin Regular, Human [NovoLIN R] See Protocol SQ ACHS PRN 03/16/19 [History] Albuterol Nebulized [Ventolin Nebulized] 2.5 mg INHALATION RT-QID 04/26/19 [History] Apixaban [Eliquis] 5 mg PO BID 30 Days #60 tab 05/02/19 [Rx] Insuln Asp Prt/Insulin Aspart [NovoLOG MIX 70-30 VIAL] 15 unit SQ AC-BID #3 vial 05/03/19 [Rx] amLODIPine [Norvasc] 5 mg PO DAILY #30 tab 05/03/19 [Rx] predniSONE 10 mg PO DAILY #30 tab 05/03/19 [Rx] Follow up Appointment(s)/Referral(s): Rasta Cabrales MD [REFERRING] - 1 Week (please call office to set up appt. time and date.) Verona Medrano MD [Primary Care Provider] - 05/07/19 2:30 pm Meme Mendiola MD [STAFF PHYSICIAN] - 2 Weeks (Please call office to set up appt. ) Patient Instructions/Handouts: Heart Failure (DC), Type 2 Diabetes in Adults: New Diagnosis (DC), COPD (Chronic Obstructive Pulmonary Disease) (DC) Activity/Diet/Wound Care/Special Instructions: Eliquis copay $43.50 ( this month is free with coupon provided ) -BEGIN taking Eliquis 05/05/19 -DO NOT TAKE WARFARIN (COUMADIN) ANYMORE 10 UNITS OF 70/30 NOVOLIN WITH BREAKFAST & DINNER, AFTER CHECKING BLOOD GLUCOSE Activity is limited till you see your doctor we recommend to check your sugar 4 times/day, before each meal and at bed time, keep the results in a log book and bring it to your doctor on your appointment date. if your glucose less than 70 or higher than 400 then call [phone] and go to nearest emergency room Discharge Disposition: HOME WITH HOME HEALTH SERVICES
[2019-05-03 17:11] LABS: Glucose,Whole Blood 295 mg/dL (75-99)
[2019-05-03] MEDS ORDERED: WARFARIN 3 MG TAB PO ONE (18:00)
--- NOTE | 2019-05-03 20:04 | PN ---
PROGRESS NOTE DATE OF SERVICE: 05/03/2019 REASON FOR FOLLOWUP: 1. Positive blood culture contamination. 2. Pseudomonas tracheobronchitis. INTERVAL HISTORY: The patient is currently afebrile. The patient has been breathing more comfortably. Patient denies having any chest pain. She did have some coughing. No sputum, no nausea, no vomiting. No abdominal pain. No diarrhea. PHYSICAL EXAMINATION: On examination, patient's blood pressure 157/82 with a pulse of 72, temperature 97.4. She is 100% on 2 L nasal cannula. General description is an elderly female up in the chair in no distress. RESPIRATORY SYSTEM: Unlabored breathing. Occasional expiratory wheeze. HEART: S1, S2. Regular rate and rhythm. ABDOMEN: Soft. No tenderness. LABS: Creatinine 1.07. Repeat blood culture has been negative. DIAGNOSTIC IMPRESSION AND PLAN: 1. Patient with positive blood culture, likely contamination. Repeat blood culture negative. 2. Patient with Pseudomonas tracheobronchitis. Patient received about 3 or 4 days of IV antibiotics. That should be more than enough. No need for any antibiotic on discharge. Continue with supportive care. MMODL / IJN: [id number] /
== END 2019-05-03 17:58 | disposition home or self-care (01) | DRG 190 ==
LOC: EC 20:51 → 6NMEDSUR 22:35
PROVIDERS: ADMIT Hospitalist; ATTEND Hospitalist
DX: J44.0 Chronic obstructive pulmonary disease with (acute) lower respiratory infection (principal); J96.21 Acute and chronic respiratory failure with hypoxia; I13.0 Hypertensive heart and chronic kidney disease with heart failure and stage 1 through stage 4 chronic kidney disease, or unspecified chronic kidney disease; I82.622 Acute embolism and thrombosis of deep veins of left upper extremity; J45.901 Unspecified asthma with (acute) exacerbation; J44.1 Chronic obstructive pulmonary disease with (acute) exacerbation; E03.9 Hypothyroidism, unspecified; E11.22 Type 2 diabetes mellitus with diabetic chronic kidney disease; E11.65 Type 2 diabetes mellitus with hyperglycemia; F03.90 Unspecified dementia, unspecified severity, without behavioral disturbance, psychotic disturbance, mood disturbance, and anxiety; F41.0 Panic disorder [episodic paroxysmal anxiety]; H91.90 Unspecified hearing loss, unspecified ear; I48.0 Paroxysmal atrial fibrillation; T38.0X5A Adverse effect of glucocorticoids and synthetic analogues, initial encounter; N18.2 Chronic kidney disease, stage 2 (mild); M19.90 Unspecified osteoarthritis, unspecified site; K21.9 Gastro-esophageal reflux disease without esophagitis; J84.10 Pulmonary fibrosis, unspecified; J20.8 Acute bronchitis due to other specified organisms; I50.9 Heart failure, unspecified; Z99.81 Dependence on supplemental oxygen; Z91.19 Patient's noncompliance with other medical treatment and regimen; Z90.710 Acquired absence of both cervix and uterus; Z79.899 Other long term (current) drug therapy; Z79.83 Long term (current) use of bisphosphonates; Z79.4 Long term (current) use of insulin; Z79.01 Long term (current) use of anticoagulants; Z88.0 Allergy status to penicillin; Z91.041 Radiographic dye allergy status; Z91.040 Latex allergy status
CPT/HCPCS: 36415; 71045; 71046; 71250; 80048; 80053; 83605; 83735; 83880; 84132; 84145; 84484; 85025; 85610; 85730; 87040; 87070; 87077; 87186; 87205; 87502; 93005; 94640; 94760; 96374; 99285

== ENCOUNTER 2019-06-28 15:57 | Inpatient (IN) | payer MEDICARE ==
--- NOTE | 2019-06-28 16:53 | XR ---
EXAMINATION TYPE: XR chest 1V portable DATE OF EXAM: 06/28/2019 COMPARISON: 05/01/2019 HISTORY: Dyspnea, atrial fibrillation TECHNIQUE: Single frontal view of the chest is obtained. FINDINGS: Strand-like opacity at the left lung bases likely on the basis of atelectasis. Remainder t he lungs are well aerated other than chronic pleural change. Cardiomediastinal silhouette is mildly e nlarged. There is diffuse osseous demineralization. IMPRESSION: Rim-like opacity at the left lung base is new and is favored to relate to atelectasis ve rsus developing pneumonia.
[2019-06-28 16:56] LABS: Basophils % (A) 0 %; Eosinophils # (A) 0.3 k/uL (0-0.7); Eosinophils % (A) 3 %; HGB 10.1 gm/dL (11.4-16.0); Hypochromasia Slight; Lymphocytes # (A) 2.2 k/uL (1.0-4.8); Lymphocytes % (A) 29 %; MCH 26.6 pg (25.0-35.0); MCHC 32.7 g/dL (31.0-37.0); MCV 81.1 fL (80.0-100.0); Mean Platelet Volume 6.6; Monocytes # (A) 0.5 k/uL (0-1.0); Monocytes % (A) 6 %; Neutrophils # (A) 4.7 k/uL (1.3-7.7); Neutrophils % (A) 61 %; Platelet Count 251 k/uL (150-450); RBC 3.82 m/uL (3.80-5.40); RDW 15.8 % (11.5-15.5); WBC 7.7 k/uL (3.8-10.6)
[2019-06-28 17:08] LABS: Calcium 9.2 mg/dL (8.4-10.2); Potassium 4.8 mmol/L (3.5-5.1)
[2019-06-28] MEDS ORDERED: DEXAMETHASONE 4 MG TAB PO STA (17:20)
[2019-06-28] MEDS ORDERED: IPRATROPIUM-ALBUTEROL 3 ML NEB INHALATION STA (17:20)
--- NOTE | 2019-06-28 17:22 | ED ---
General Adult HPI - General Chief complaint: Shortness of Breath Stated complaint: SOB Time Seen by Provider: 06/28/19 16:15 Source: patient Mode of arrival: wheelchair Limitations: no limitations - History of Present Illness Initial comments: Dictation was produced using [employer] dictation software. please excuse any grammatical, word or spelling errors. This patient was cared for during a federal and state declared state of emergency secondary to Covid 19 Chief Complaint: 73-year-old female past medical history of COPD and asthma p resents with shortness of breath for 2 days. History of Present Illness: 23-year-old female presents with dyspnea for 2 days. Patient states she has a history of COPD and asthma. She reports that she feels like her symptoms are acting up. She states she has a cough, nasal congestion. Denies any recent encounters with anybody with URI type symptoms or coronavirus. She has been on antibiotics. Her screener operator is Dr. Mendiola. The ROS documented in this emergency department record has been reviewed and confirmed by me. Those systems with pertinent positive or negative responses have been documented in the HPI. All other systems are other negative and/or noncontributory. PHYSICAL EXAM: General Impression: Alert and oriented x3, not in acute distress HEENT: Normocephalic atraumatic, extra-ocular movements intact, pupils equal and reactive to light bilaterally, mucous membranes moist. Cardiovascular: Heart regular rate and rhythm Chest: Able to complete 6 word sentences, no retractions, no tachypnea, diffuse lung wheezing Abdomen: abdomen soft, non-tender, non-distended, no organomegaly Musculoskeletal: Pulses present and equal in all extremities, no peripheral edema Motor: no focal deficits noted Neurological: CN II-XII grossly intact, no focal motor or sensory deficits noted Skin: Intact with no visualized rashes Psych: Normal affect and mood ED course: 73 y Old female with clinical presentation consistent with COPD exacerbation. Signs upon arrival are within acceptable limits. Laboratory evaluation obtained. CBC unremarkable. Metabolic panel is unremarkable. coronavirus infiltrate to the left lung base concerning for pneumonia. Test is negative. Chest x-ray shows. Patient treated for community acquired pneumonia with ceftriaxone and azithromycin. Patient ambulatory to the bathroom and became significantly hypoxic with increased signs of respiratory distress. Patient be admitted for community acquired pneumonia, respiratory failure secondary to COPD exacerbation. Pulmonology will be consulted. Patient be admitted to [facility] hospitalist group. EKG interpretation: Ventricular rate [default value]. No [place] prolongation, no QTC prolongation, no ST or T-wave changes noted. EKG compared to [default value] showing no changes. Overall, this EKG is unremarkable - Related Data Home Medications Medication Instructions Recorded Confirmed ALPRAZolam [Xanax] 0.5 mg PO TID 01/16/19 04/27/19 Alendronate Sodium [Fosamax] 70 mg PO FR 01/16/19 04/27/19 Citalopram Hydrobromide 40 mg PO DAILY 01/16/19 04/27/19 [Citalopram HBr] Diltiazem HCl [Diltiazem HCl 24Hr 180 mg PO DAILY 01/16/19 04/27/19 ER] Furosemide [Lasix] 40 mg PO DAILY 01/16/19 04/27/19 Ipratropium Nebulized [Atrovent 0.5 mg INHALATION RT-QID 01/16/19 04/27/19 Nebulized 0.2 MG/ML] Levothyroxine Sodium [Synthroid] 50 mg PO DAILY 01/16/19 04/27/19 Losartan [Cozaar] 50 mg PO DAILY 01/16/19 04/27/19 Lovastatin [Mevacor] 40 mg PO DAILY 01/16/19 04/27/19 Potassium Chloride [Klor-Con 20] 20 meq PO BID 01/16/19 04/27/19 Zafirlukast [Accolate] 20 mg PO BID 01/16/19 04/27/19 traMADol HCL 50 mg PO TID PRN 01/16/19 04/27/19 Insulin Regular, Human [NovoLIN R] See Protocol SQ ACHS PRN 03/16/19 04/27/19 Albuterol Nebulized [Ventolin 2.5 mg INHALATION RT-QID 04/26/19 04/27/19 Nebulized] Previous Rx's Medication Instructions Recorded Apixaban [Eliquis] 5 mg PO BID 30 Days #60 tab 05/02/19 Insuln Asp Prt/Insulin Aspart 15 unit SQ AC-BID #3 vial 05/03/19 [NovoLOG MIX 70-30 VIAL] amLODIPine [Norvasc] 5 mg PO DAILY #30 tab 05/03/19 predniSONE 10 mg PO DAILY #30 tab 05/03/19 Allergies Allergy/AdvReac Type Severity Reaction Status Date / Time Iodinated Contrast Media Allergy Unknown, Verified 04/26/19 20:59 POOR RENAL FUNCTIONS latex Allergy Rash/Hives Verified 04/26/19 20:59 Penicillins Allergy Rash/Hives Verified 04/26/19 20:59 Review of Systems ROS Statement: Those systems with pertinent positive or pertinent negative responses have been documented in the HPI. ROS Other: All systems not noted in ROS Statement are negative. Past Medical History Past Medical History: Atrial Fibrillation, Asthma, Heart Failure, COPD, Diabetes Mellitus, GERD/Reflux, Hearing Disorder / Deafness, Hypertension, Osteoarthritis (OA), Pneumonia, Renal Disease, Thyroid Disorder Additional Past Medical History / Comment(s): HOLE IN RIGHT RETINA. hiatal hernia, anemia, chronic hypoxic respiratory failure, recent pulmonary infection with pseudomonas aeruginosa confirmed via bronchoscopy and the lavage History of Any Multi-Drug Resistant Organisms: Other MDRO Past Surgical History: Cholecystectomy, Hysterectomy Additional Past Surgical History / Comment(s): CATARACT REMOVAL LEFT EYE. Past Anesthesia/Blood Transfusion Reactions: No Reported Reaction Past Psychological History: Anxiety, Panic Disorder Smoking Status: Never smoker Past Alcohol Use History: None Reported Past Drug Use History: None Reported - Past Family History Mother Family Medical History: No Reported History General Exam Limitations: no limitations Course Vital Signs 06/28/19 06/28/19 06/28/19 16:03 16:26 16:30 Temperature 97.9 F Pulse Rate 82 75 Respiratory 20 18 17 Rate Blood Pressure 173/61 170/67 O2 Sat by Pulse 98 98 Oximetry 06/28/19 06/28/19 06/28/19 17:38 17:51 17:56 Temperature Pulse Rate 73 75 73 Respiratory 17 16 18 Rate Blood Pressure 137/74 O2 Sat by Pulse 99 Oximetry Medical Decision Making - Lab Data Result diagrams: 06/28/19 16:15 06/28/19 16:15 Lab Results 06/28/19 06/28/19 06/28/19 Range/Units 16:15 16:15 16:15 WBC 7.7 (3.8-10.6) k/uL RBC 3.82 (3.80-5.40) m/uL Hgb 10.1 L (11.4-16.0) gm/dL Hct 31.0 L (34.0-46.0) % MCV 81.1 (80.0-100.0) fL MCH 26.6 (25.0-35.0) pg MCHC 32.7 (31.0-37.0) g/dL RDW 15.8 H (11.5-15.5) % Plt Count 251 (150-450) k/uL Neutrophils % 61 % Lymphocytes % 29 % Monocytes % 6 % Eosinophils % 3 % Basophils % 0 % Neutrophils # 4.7 (1.3-7.7) k/uL Lymphocytes # 2.2 (1.0-4.8) k/uL Monocytes # 0.5 (0-1.0) k/uL Eosinophils # 0.3 (0-0.7) k/uL Basophils # 0.0 (0-0.2) k/uL Hypochromasia Slight Sodium 138 (137-145) mmol/L Potassium 4.8 (3.5-5.1) mmol/L Chloride 103 (98-107) mmol/L Carbon Dioxide 29 (22-30) mmol/L Anion Gap 6 mmol/L BUN 21 H (7-17) mg/dL Creatinine 0.95 (0.52-1.04) mg/dL Est GFR (CKD-EPI)AfAm 70 (>60 ml/min/1.73 sqM) Est GFR (CKD-EPI)NonAf 61 (>60 ml/min/1.73 sqM) Glucose 177 H (74-99) mg/dL Calcium 9.2 (8.4-10.2) mg/dL Coronavirus (PCR) Not Detected (Not Detectd) Disposition Clinical Impression: COPD exacerbation, Respiratory failure Disposition: ADMITTED IP TO THIS HOSP Condition: Fair Referrals: Verona Medrano MD [Primary Care Provider] - 1-2 days Decision Time: 18:12
[2019-06-28] MEDS ORDERED: cefTRIAXone IN SWFI 1,000 MG/10 ML SYRINGE IVP STA (18:10)
[2019-06-28] MEDS ORDERED: AZITHROMYCIN 500 MG in SODIUM CHLORIDE 0.9% 250 ML IVPB STA (18:10)
[2019-06-28] MEDS: SODIUM CHLORIDE 0.9% 1,000 ML IV SCH (18:57)
[2019-06-28] MEDS: IPRATROPIUM-ALBUTEROL 3 ML NEB INHALATION SCH (20:20)
[2019-06-28] MEDS ORDERED: traMADol 50 MG TAB PO PRN (20:48)
[2019-06-28] MEDS ORDERED: INSULIN REGULAR 100 UNIT/ML VIAL SQ SCH (21:00)
[2019-06-28 21:11] LABS: Glucose,Whole Blood 190 mg/dL (75-99)
[2019-06-28 21:19] LABS: INR 1.4 (<1.2); Prothrombin Time 14.1 sec (9.0-12.0)
[2019-06-28] MEDS: INSULIN ASPART (NovoLOG) 100 UNIT/ML VIAL SQ SCH (21:46)
[2019-06-28] MEDS: MONTELUKAST 10 MG TAB PO SCH (21:47)
[2019-06-28] MEDS: POTASSIUM CHLORIDE ER 20 MEQ TAB.ER PO SCH (21:47)
[2019-06-28] MEDS: WARFARIN 5 MG TAB PO SCH (22:13)
[2019-06-28] MEDS: ALPRAZolam 0.5 MG TAB PO PRN (23:27)
[2019-06-29 06:48] LABS: Glucose,Whole Blood 357 mg/dL (75-99)
[2019-06-29] MEDS: PATIENT'S OWN MED (Alendronate Sodium [Fosamax] 70 MG) PO SCH (07:58)
[2019-06-29] MEDS: INSULIN DETEMIR (LEVEMIR) 100 UNIT/ML SYR SQ SCH ×2 (07:58→23:26)
[2019-06-29] MEDS: DILTIAZEM CD 180 MG CAP.ER.24H PO SCH (07:59)
[2019-06-29] MEDS: LIPITOR 10MG PO SCH (08:00)
[2019-06-29] MEDS: LOSARTAN 50 MG TAB PO SCH (08:00)
[2019-06-29] MEDS: CITALOPRAM HYDROBROMIDE 20 MG TAB PO SCH (08:00)
[2019-06-29] MEDS: predniSONE 20 MG TAB PO SCH (08:00)
[2019-06-29] MEDS: INSULIN ASPART (NovoLOG) 100 UNIT/ML VIAL SQ SCH ×4 (08:00→23:27)
[2019-06-29] MEDS: POTASSIUM CHLORIDE ER 20 MEQ TAB.ER PO SCH ×2 (08:01→20:22)
[2019-06-29] MEDS: FUROSEMIDE 40 MG TAB PO SCH (08:01)
[2019-06-29] MEDS: IPRATROPIUM-ALBUTEROL 3 ML NEB INHALATION SCH ×4 (08:33→19:37)
[2019-06-29 08:57] LABS: INR 1.6 (<1.2); Prothrombin Time 15.9 sec (9.0-12.0)
[2019-06-29] MEDS: MEROPENEM 1 GM in SODIUM CHLORIDE 0.9% 100 ML IVPB SCH ×3 (09:55→23:27)
[2019-06-29 11:51] LABS: Glucose,Whole Blood 404 mg/dL (75-99)
--- NOTE | 2019-06-29 12:11 | P.HPIM ---
History of Present Illness 73-year-old pleasant female with known history of COPD and on home oxygen came in with the complaints of shortness of breath has been going on for 2 days patient is not a smoker patient apparently was exposed to secondhand smoke. Dayron parry is coughing but unable to bring up much. Patient is presently in status of falls and saturating well diffuse rhonchi bilaterally patient was treated in the past for pseudomonal bronchitis although patient is ALLERGIC to penicillins. Pulmonary already evaluated the patient with change and medics meropenem because of the pseudomonal bronchitis patient is on systemic steroids which are being continued, there is no evidence of pneumonia on the chest x-ray Review of Systems REVIEW OF SYSTEMS: CONSTITUTIONAL: No fever, no malaise, no fatigue. HEENT: No recent visual problems or hearing problems. Denied any sore throat. CARDIOVASCULAR: No chest pain, orthopnea, PND, no palpitations, no syncope. PULMONARY: As mentioned in HPI GASTROINTESTINAL: No diarrhea, no nausea, no vomiting, no abdominal pain. NEUROLOGICAL: No headaches, no weakness, no numbness. HEMATOLOGICAL: Denies any bleeding or petechiae. GENITOURINARY: Denies any burning micturition, frequency, or urgency. MUSCULOSKELETAL/RHEUMATOLOGICAL: Denies any joint pain, swelling, or any muscle pain. ENDOCRINE: Denies any polyuria or polydipsia. The rest of the 14-point review of systems is negative. Past Medical History Past Medical History: Atrial Fibrillation, Asthma, Heart Failure, COPD, Diabetes Mellitus, GERD/Reflux, Hearing Disorder / Deafness, Hypertension, Osteoarthritis (OA), Pneumonia, Renal Disease, Thyroid Disorder Additional Past Medical History / Comment(s): HOLE IN RIGHT RETINA. hiatal hernia, anemia, chronic hypoxic respiratory failure, recent pulmonary infection with pseudomonas aeruginosa confirmed via bronchoscopy and the lavage History of Any Multi-Drug Resistant Organisms: Other MDRO Past Surgical History: Cholecystectomy, Hysterectomy Additional Past Surgical History / Comment(s): CATARACT REMOVAL LEFT EYE. Past Anesthesia/Blood Transfusion Reactions: No Reported Reaction Past Psychological History: Anxiety, Panic Disorder Smoking Status: Never smoker Past Alcohol Use History: None Reported Past Drug Use History: None Reported - Past Family History Mother Family Medical History: No Reported History Medications and Allergies Home Medications Medication Instructions Recorded Confirmed Type ALPRAZolam [Xanax] 0.5 mg PO TID 01/16/19 06/28/19 History Alendronate Sodium [Fosamax] 70 mg PO FR 01/16/19 06/28/19 History Citalopram Hydrobromide 40 mg PO DAILY 01/16/19 06/28/19 History [Citalopram HBr] Diltiazem HCl [Diltiazem HCl 24Hr 180 mg PO DAILY 01/16/19 06/28/19 History ER] Furosemide [Lasix] 40 mg PO DAILY 01/16/19 06/28/19 History Ipratropium Nebulized [Atrovent 0.5 mg INHALATION RT-QID 01/16/19 06/28/19 History Nebulized 0.2 MG/ML] Levothyroxine Sodium [Synthroid] 50 mg PO DAILY 01/16/19 06/28/19 History Losartan [Cozaar] 50 mg PO DAILY 01/16/19 06/28/19 History Lovastatin [Mevacor] 40 mg PO DAILY 01/16/19 06/28/19 History Potassium Chloride [Klor-Con 20] 20 meq PO BID 01/16/19 06/28/19 History Zafirlukast [Accolate] 20 mg PO BID 01/16/19 06/28/19 History traMADol HCL 50 mg PO TID PRN 01/16/19 06/28/19 History Insulin Regular, Human [NovoLIN R] See Protocol SQ ACHS 03/16/19 06/28/19 History Albuterol Nebulized [Ventolin 2.5 mg INHALATION RT-QID 04/26/19 06/28/19 History Nebulized] Insulin Glargine [Lantus] 30 unit SQ DAILY 06/28/19 06/28/19 History Warfarin Sodium [Coumadin] 5 mg PO HS 06/28/19 06/28/19 History Allergies Allergy/AdvReac Type Severity Reaction Status Date / Time Iodinated Contrast Media Allergy Unknown, Verified 06/28/19 20:18 POOR RENAL FUNCTIONS latex Allergy Rash/Hives Verified 06/28/19 20:18 Penicillins Allergy Rash/Hives Verified 06/28/19 20:18 Physical Exam Vitals: Vital Signs Temp Pulse Pulse Pulse Resp BP BP 06/29/19 08:46 92 06/29/19 08:33 88 06/29/19 07:44 97.8 F 97 20 183/67 06/29/19 02:41 97.9 F 85 16 154/76 06/28/19 20:26 98.8 F 105 H 14 169/67 06/28/19 18:56 76 18 158/85 06/28/19 18:14 06/28/19 18:00 06/28/19 17:56 73 18 137/74 06/28/19 17:51 75 16 06/28/19 17:38 73 17 06/28/19 16:30 75 17 170/67 06/28/19 16:26 18 06/28/19 16:03 97.9 F 82 20 173/61 Pulse Ox 06/29/19 08:46 06/29/19 08:33 06/29/19 07:44 97 06/29/19 02:41 99 06/28/19 20:26 97 06/28/19 18:56 99 06/28/19 18:14 99 06/28/19 18:00 90 L 06/28/19 17:56 99 06/28/19 17:51 06/28/19 17:38 06/28/19 16:30 98 06/28/19 16:26 06/28/19 16:03 98 Intake and Output 06/28/19 06/29/19 06/29/19 22:59 06:59 14:59 Intake Total 480 240 Balance 480 240 Intake: Oral 480 240 Other: Voiding Method Toilet Toilet # Voids 1 4 # Bowel Movements 1 Weight 94.347 kg PHYSICAL EXAMINATION: GENERAL: The patient is alert and oriented x3, not in any acute distress. Well developed, well nourished. HEENT: Pupils are round and equally reacting to light. EOMI. No scleral icterus. No conjunctival pallor. Normocephalic, atraumatic. No pharyngeal erythema. No thyromegaly. CARDIOVASCULAR: S1 and S2 present. No murmurs, rubs, or gallops. PULMONARY: Diffuse bilateral rhonchi ABDOMEN: Soft, nontender, nondistended, normoactive bowel sounds. No palpable organomegaly. MUSCULOSKELETAL: No joint swelling or deformity. EXTREMITIES: No cyanosis, clubbing, or pedal edema. NEUROLOGICAL: Gross neurological examination did not reveal any focal deficits. SKIN: No rashes. Results CBC & Chem 7: 06/28/19 16:15 06/28/19 16:15 Labs: Abnormal Lab Results - Last 24 Hours (Table) 06/28/19 06/28/19 06/28/19 Range/Units 16:15 16:15 20:50 Hgb 10.1 L (11.4-16.0) gm/dL Hct 31.0 L (34.0-46.0) % RDW 15.8 H (11.5-15.5) % PT 14.1 H (9.0-12.0) sec INR 1.4 H (<1.2) BUN 21 H (7-17) mg/dL Glucose 177 H (74-99) mg/dL POC Glucose (mg/dL) (75-99) mg/dL 06/28/19 06/29/19 06/29/19 Range/Units 21:09 06:47 08:29 Hgb (11.4-16.0) gm/dL Hct (34.0-46.0) % RDW (11.5-15.5) % PT 15.9 H (9.0-12.0) sec INR 1.6 H (<1.2) BUN (7-17) mg/dL Glucose (74-99) mg/dL POC Glucose (mg/dL) 190 H 357 H (75-99) mg/dL 06/29/19 Range/Units 11:49 Hgb (11.4-16.0) gm/dL Hct (34.0-46.0) % RDW (11.5-15.5) % PT (9.0-12.0) sec INR (<1.2) BUN (7-17) mg/dL Glucose (74-99) mg/dL POC Glucose (mg/dL) 404 H (75-99) mg/dL Thrombosis Risk Factor Assmnt - Choose All That Apply Each Factor Represents 1 point: Abnormal pulmonary function (COPD), Serious lung disease incl. pneumonia (< 1month), Swollen legs (current) Each Risk Factor Represents 2 Points: Age 61-74 years Thrombosis Risk Factor Assessment Total Risk Factor Score: 5 Thrombosis Risk Factor Assessment Level: High Risk Assessment and Plan Plan: Acute on chronic hypercapnic respiratory failure secondary to COPD exacerbation. Patient was started on systemic steroids inhalational treatments patient has history of pseudomonal bronchitis because of which patient was started on ertap enem will try and obtain sputum cultures although patient is not bringing up much phlegm. -Tracheobronchitis possible: Above-mentioned antibiotics -History of A. fib patient on Coumadin subtherapeutic on Coumadin but patient was continued on same dose of Coumadin as home as a patient is on antibiotics and systemic steroids and not is expected to go. They have 2 -COPD with acute acceleration neck and heparin drip per diabetes mellitus blood sugars are expected to go up because of systemic steroids patient will be continued on home regimen along with sliding scale -Hypertension -Hypothyroidism -Anxiety disorder GI prophylaxis with the Pepcid or Protonix
[2019-06-29] MEDS ORDERED: FAMOTIDINE 20 MG TAB PO SCH (12:15)
--- NOTE | 2019-06-29 15:46 | CONS ---
CONSULTATION PULMONARY/CRITICAL CARE CONSULTATION: DATE OF CONSULTATION: 06/29/2019 REASON FOR CONSULTATION: Shortness of breath. This is a 73-year-old female who presented to the emergency room on June 27. The patient came in with complaints of increasing shortness of breath. She was seen by Dr. Hanley in the ER. Anyway, the patient states that for the last 2 or 3 days prior to admission, she has had increasing shortness of breath, chest congestion, coughing, wheezing and phlegm production. She was having a hard time coughing up the phlegm, but she felt like there was a lot of phlegm down in her chest. She did have a telephone visit with my partner, Dr. Mendiola, a couple days prior to presenting to the emergency room. He prescribed her some antibiotics without any steroids. She denied any fever or chills. She denied any chest pain or chest discomfort. She also denied any nausea, vomiting, diarrhea, or abdominal pain. She denied any genitourinary complaints. The patient is feeling a bit better today than she did yesterday when she presented on June 27. HOME MEDICATIONS: Reviewed. She is on Xanax, Fosamax, citalopram, Cardizem, Lasix, DuoNeb, Synthroid, losartan, Mevacor, potassium chloride, Accolate, tramadol, insulin, albuterol updrafts, Eliquis, prednisone, amlodipine, and NovoLog insulin. ALLERGIES: IVP DYE, LATEX and PENICILLIN. MEDICAL HISTORY: Reviewed. She has a history of atrial fibrillation, asthma, heart failure, COPD, diabetes, GERD, deafness, hypertension, DJD, pneumonia, and hypothyroidism. She also has a history of hiatal hernia, chronic anemia, chronic hypoxemic respiratory failure, chronic pulmonary infections with Pseudomonas, and other multi-drug resistant organisms. SURGICAL HISTORY: Includes cataract removal left eye, hysterectomy, and cholecystectomy. SOCIAL HISTORY: Negative for tobacco, alcohol or illicit drug use. FAMILY HISTORY: Unremarkable. Mother was healthy. She is not well aware of her father's health history. REVIEW OF SYSTEMS: CONSTITUTIONAL: Negative. NEUROLOGIC: Negative. HEENT: Negative. CARDIOVASCULAR: Negative. PULMONARY: Shortness of breath, chest congestion, coughing, wheezing, phlegm production. GI: Negative. : Negative. RHEUMATOLOGIC: Negative. IMMUNOLOGIC: Negative. ENDOCRINOLOGIC: Negative. DERMATOLOGIC: Negative. Current vital signs are reviewed, temperature is 97.8, heart rate 96, respiratory rate 20, blood pressure 183/67, mean 105, 3 L saturation 97%. She appears in no acute distress. HEENT: Examination is grossly unremarkable. Mucous membranes are moist. No oral lesions. Nasal O2 noted. NECK: Supple, full range of motion. No adenopathy or thyromegaly. Neck veins are flat. CARDIOVASCULAR: Examination reveals regular rhythm and rate. Heart rate about mid 80s. S1, S2 normal. Heart sounds are distant. No murmur. LUNGS: Reveal coarse inspiratory and expiratory rhonchi and wheezes. She has a very wet congested cough. No crackles. Breath sounds equal bilaterally but diminished throughout. ABDOMEN: Obese, bowel sounds are heard. No masses or tenderness. EXTREMITIES: Intact. No cyanosis, clubbing, or edema. SKIN: Without rash. NEUROLOGIC: Examination is brief but nonfocal. The chest x-ray done on the day of admission, June 27, shows some atelectasis at the left lung base. LABS: Reviewed. White count 7.7, hemoglobin 10.1, hematocrit 31.0, platelet count 151,000. PT, INR were 15.9 and 1.6. Sodium, potassium, chloride normal, CO2 normal. BUN and creatinine were 21 and 0.95. Anion gap 6. Glucose was 177. Her COVID-19 nasal pharyngeal swab test was negative. Microbiologic studies are negative pending right now. X-rays have been reviewed. Medications are reviewed. She is currently on alendronate, Xanax, Lipitor Pulmicort 1 mg, citalopram, Cardizem, famotidine, formoterol, Lasix, insulin, DuoNeb, losartan, meropenem, Singulair, potassium, prednisone 0.9 IV, tramadol, and Coumadin. ASSESSMENT: 1. Chronic obstructive pulmonary disease exacerbation complicated by purulent tracheobronchitis, without josé miguel pneumonia. 2. Prior history of colonization with Pseudomonas aeruginosa. 3. History of asthma/chronic obstructive pulmonary disease. 4. History of atrial fibrillation. 5. History of congestive heart failure. 6. Diabetes mellitus. 7. Gastroesophageal reflux disease. 8. Deafness. 9. Hypertension. 10.Degenerative joint disease. 11.History of pneumonia. 12.Hypothyroidism. 13.History of hiatal hernia. 14.History of anemia. 15.Chronic hypoxemic respiratory failure. PLAN: Currently, the patient is on meropenem based on her prior sensitivities and the finding of Pseudomonas on sputum and BAL. She is also on DuoNeb, Pulmicort, Perforomist, and prednisone orally. Will continue to follow. Prognosis is guarded. No additional recommendations are made. I will let my partner know that she is in the hospital. MMODL / IJN: [id number] /
[2019-06-29 17:11] LABS: Glucose,Whole Blood 425 mg/dL (75-99)
[2019-06-29] MEDS: WARFARIN 5 MG TAB PO SCH (17:16)
[2019-06-29] MEDS: SODIUM CHLORIDE 0.9% 1,000 ML IV SCH (19:28)
[2019-06-29] MEDS: BUDESONIDE 1 MG/2 ML NEBU INHALATION SCH (19:37)
[2019-06-29] MEDS: FORMOTEROL FUMARATE 20 MCG/2 ML NEBU INHALATION SCH (19:38)
[2019-06-29] MEDS: MONTELUKAST 10 MG TAB PO SCH (20:22)
[2019-06-29] MEDS ORDERED: INSULIN ASPART (NovoLOG) 100 UNIT/ML VIAL SQ SCH (21:19)
[2019-06-29] MEDS: ALPRAZolam 0.5 MG TAB PO PRN (21:51)
[2019-06-29 22:19] LABS: Glucose,Whole Blood 439 mg/dL (75-99)
[2019-06-29] MEDS ORDERED: INSULIN ASPART (NovoLOG) 100 UNIT/ML VIAL SQ ONE (23:07)
[2019-06-29] MEDS: FAMOTIDINE 20 MG TAB PO SCH (23:27)
[2019-06-29] MEDS: guaiFENesin-DM 100-10MG/5ML 10 ML CUP PO PRN (23:28)
[2019-06-30 07:08] LABS: Glucose,Whole Blood 272 mg/dL (75-99)
[2019-06-30] MEDS: FORMOTEROL FUMARATE 20 MCG/2 ML NEBU INHALATION SCH ×2 (08:04→19:53)
[2019-06-30] MEDS: BUDESONIDE 1 MG/2 ML NEBU INHALATION SCH ×2 (08:04→19:53)
[2019-06-30] MEDS: IPRATROPIUM-ALBUTEROL 3 ML NEB INHALATION SCH ×4 (08:04→19:53)
[2019-06-30 08:20] LABS: INR 2.3 (<1.2); Prothrombin Time 21.9 sec (9.0-12.0)
[2019-06-30 08:27] LABS: HCT 28.4 % (34.0-46.0); HGB 9.1 gm/dL (11.4-16.0); Hypochromasia Moderate; MCH 26.4 pg (25.0-35.0); MCV 82.5 fL (80.0-100.0); Mean Platelet Volume 7.1; Platelet Count 220 k/uL (150-450); RBC 3.44 m/uL (3.80-5.40); RDW 15.8 % (11.5-15.5); WBC 8.2 k/uL (3.8-10.6)
[2019-06-30 08:31] LABS: Calcium 8.6 mg/dL (8.4-10.2); Potassium 5.1 mmol/L (3.5-5.1)
[2019-06-30] MEDS: FAMOTIDINE 20 MG TAB PO SCH (09:15)
[2019-06-30] MEDS: POTASSIUM CHLORIDE ER 20 MEQ TAB.ER PO SCH ×2 (09:15→20:11)
[2019-06-30] MEDS: CITALOPRAM HYDROBROMIDE 20 MG TAB PO SCH (09:15)
[2019-06-30] MEDS: LIPITOR 10MG PO SCH (09:15)
[2019-06-30] MEDS: FUROSEMIDE 40 MG TAB PO SCH (09:16)
[2019-06-30] MEDS: predniSONE 20 MG TAB PO SCH (09:16)
[2019-06-30] MEDS: LOSARTAN 50 MG TAB PO SCH (09:16)
[2019-06-30] MEDS: INSULIN DETEMIR (LEVEMIR) 100 UNIT/ML SYR SQ SCH ×2 (09:17→21:42)
[2019-06-30] MEDS: DILTIAZEM CD 180 MG CAP.ER.24H PO SCH (09:21)
[2019-06-30] MEDS: INSULIN ASPART (NovoLOG) 100 UNIT/ML VIAL SQ SCH ×7 (09:22→21:43)
[2019-06-30] MEDS: MEROPENEM 1 GM in SODIUM CHLORIDE 0.9% 100 ML IVPB SCH ×2 (09:31→20:11)
[2019-06-30] MEDS: guaiFENesin-DM 100-10MG/5ML 10 ML CUP PO PRN ×2 (09:33→20:11)
[2019-06-30 11:49] LABS: Glucose,Whole Blood 375 mg/dL (75-99)
--- NOTE | 2019-06-30 12:24 | P.PN ---
Subjective Progress Note Date: 06/30/19 Principal diagnosis: Acute exacerbation of chronic obstructive pulmonary disease The patient is seen today 06/30/2019 in follow-up on the regular medical floor. She is currently awake and alert in no acute distress. Still complaining of cough and congestion. Still dyspneic with exertion. He is maintaining good O2 saturations in the upper 90s on 3 L/m per nasal cannula. She's afebrile. Blood culture reveals no growth to date. Sputum culture pending. White count 8.2. Hemoglobin 9.1. INR 2.3. Creatinine 0.98. She remains on bronchodilators, steroids, meropenem. Objective - Vital Signs Vital signs: Vital Signs Temp 97.6 F 06/30/19 09:04 Pulse 74 06/30/19 11:55 Resp 24 06/30/19 11:55 BP 169/76 06/30/19 11:55 Pulse Ox 99 06/30/19 11:55 Intake & Output 06/29/19 06/30/19 06/30/19 18:59 06:59 18:59 Intake Total 377 450 296 Balance 377 450 296 Intake: Oral 377 450 296 Other: Voiding Method Toilet Toilet Toilet # Voids 1 1 1 # Bowel Movements 1 1 - Exam GENERAL EXAM: Alert, pleasant 73-year-old female patient, on 3 L nasal cannula, comfortable in no apparent distress. HEAD: Normocephalic. EYES: Normal reaction of pupils, equal size. NOSE: Clear with pink turbinates. THROAT: No erythema or exudates. NECK: No masses, no JVD. CHEST: No chest wall deformity. LUNGS: Equal air entry with bilateral end expiratory wheeze, diminished. CVS: S1 and S2 normal with no audible murmur, regular rhythm. ABDOMEN: No hepatosplenomegaly, normal bowel sounds, no guarding or rigidity. SPINE: No scoliosis or deformity SKIN: No rashes CENTRAL NERVOUS SYSTEM: No focal deficits, tone is normal in all 4 extremities. EXTREMITIES: There is no peripheral edema. No clubbing, no cyanosis. Peripheral pulses are intact. - Labs CBC & Chem 7: 06/30/19 07:52 06/30/19 07:52 Labs: Abnormal Lab Results - Last 24 Hours (Table) 06/28/19 06/29/19 06/29/19 Range/Units 16:15 17:09 22:17 RBC (3.80-5.40) m/uL Hgb (11.4-16.0) gm/dL Hct (34.0-46.0) % RDW (11.5-15.5) % PT (9.0-12.0) sec INR (<1.2) BUN (7-17) mg/dL Glucose (74-99) mg/dL POC Glucose (mg/dL) 425 H 439 H (75-99) mg/dL Hemoglobin A1c 8.0 H (4.0-6.0) % 06/30/19 06/30/19 06/30/19 Range/Units 07:07 07:52 07:52 RBC 3.44 L (3.80-5.40) m/uL Hgb 9.1 L (11.4-16.0) gm/dL Hct 28.4 L (34.0-46.0) % RDW 15.8 H (11.5-15.5) % PT 21.9 H (9.0-12.0) sec INR 2.3 H (<1.2) BUN (7-17) mg/dL Glucose (74-99) mg/dL POC Glucose (mg/dL) 272 H (75-99) mg/dL Hemoglobin A1c (4.0-6.0) % 06/30/19 06/30/19 Range/Units 07:52 11:48 RBC (3.80-5.40) m/uL Hgb (11.4-16.0) gm/dL Hct (34.0-46.0) % RDW (11.5-15.5) % PT (9.0-12.0) sec INR (<1.2) BUN 33 H (7-17) mg/dL Glucose 251 H (74-99) mg/dL POC Glucose (mg/dL) 375 H (75-99) mg/dL Hemoglobin A1c (4.0-6.0) % Microbiology - Last 24 Hours (Table) 06/30/19 06:01 Sputum Culture - Preliminary Sputum 06/28/19 18:53 Blood Culture - Preliminary Blood No Growth after 24 hours Assessment and Plan Assessment: Acute exacerbation of chronic obstructive pulmonary disease, complicated by purulent tracheobronchitis. No clear evidence of pneumonia. Sputum culture pending. Currently on meropenem. Chronic hypoxic respiratory failure secondary to above History of colonization of pseudomonas aeruginosa History of chronic bronchial asthma, moderate persistent History of atrial fibrillation anticoagulated with warfarin History of congestive heart failure Diabetes mellitus. GERD Hearing disorder Hypertension Hypothyroidism Plan: The patient was seen and evaluated by Dr. Butler She is improved but not quite back to her baseline Continue the current treatment plan Await sputum culture results We'll continue to follow I, the cosigning physician, performed a history & physical examination of the patient. Lungs sounds with bilateral end wheeze, diminished Maintaining good O2 saturations in the 90s on 3 L/m per nasal cannula. I discussed the assessment and plan of care with my nurse practitioner, Su Arias. I attest to the above note as dictated by her.
[2019-06-30 17:13] LABS: Glucose,Whole Blood 379 mg/dL (75-99)
[2019-06-30] MEDS: SODIUM CHLORIDE 0.9% 1,000 ML IV SCH (17:57)
[2019-06-30] MEDS: WARFARIN 5 MG TAB PO SCH (17:57)
[2019-06-30] MEDS: MONTELUKAST 10 MG TAB PO SCH (20:11)
[2019-06-30] MEDS ORDERED: INSULIN DETEMIR (LEVEMIR) 100 UNIT/ML SYR SQ SCH (21:00)
[2019-06-30 21:06] LABS: Glucose,Whole Blood 340 mg/dL (75-99)
--- NOTE | 2019-06-30 22:54 | P.PN ---
Subjective Progress Note Date: 06/30/19 Principal diagnosis: COPD exacerbation Ms. Lloyd is a 73-year-old female with a past medical history of atrial fibrillation, asthma, heart failure, COPD, diabetes mellitus, GERD, hypertension, thyroid disorder, renal disease coming into the hospital with a chief complaint of difficulty in breathing which has been going on for couple of days. Patient was prescribed antibiotics as outpatient but did not respond and so admitted to the hospital for further management. Depending on her prior sensitivities patient has been started on meropenem and pulmonary is following the patient closely. On 06/30/2019 -patient is lying in the bed appears to be no acute distress. No acute events reported by nursing staff overnight. Patient still complaining of cough and mild difficulty in breathing. She denies having any chest pain or palpitations. No abdominal pain nausea vomiting or diarrhea. No dysuria or hematuria. On reviewing the patient's vitals she is saturating at 99% on 3 L of nasal cannula. Temperature 97.7, heart rate 82 and respiratory rate 18 with bl ood pressure 1 65-70. On reviewing the patient's labs hemoglobin stable around 9. INR at 2.3 and rest of the labs within normal limits. Active Medications Albuterol/Ipratropium (Duoneb 0.5 Mg-3 Mg/3 Ml Soln) 3 ml INHALATION RT-QID [facility] Last Admin: 06/30/19 19:53 Dose: 3 ml Documented by: Alprazolam (Xanax) 0.5 mg PO TID PRN PRN Reason: Anxiety Last Admin: 06/29/19 21:51 Dose: 0.5 mg Documented by: Atorvastatin Calcium (Lipitor) 10 mg PO DAILY [facility] Last Admin: 06/30/19 09:15 Dose: 10 mg Documented by: Budesonide (Pulmicort) 1 mg INHALATION RT-BID [facility] Last Admin: 06/30/19 19:53 Dose: 1 mg Documented by: Citalopram Hydrobromide (Celexa) 40 mg PO DAILY [facility] Last Admin: 06/30/19 09:15 Dose: 40 mg Documented by: Diltiazem HCl (Cardizem Cd) 180 mg PO DAILY [facility] Last Admin: 06/30/19 09:21 Dose: 180 mg Documented by: Famotidine (Pepcid) 20 mg PO DAILY [facility] Formoterol Fumarate (Perforomist) 20 mcg INHALATION RT-BID [facility] Last Admin: 06/30/19 19:53 Dose: 20 mcg Documented by: Furosemide (Lasix) 40 mg PO DAILY [facility] Last Admin: 06/30/19 09:16 Dose: 40 mg Documented by: Guaifenesin/Dextromethorphan (Robitussin Dm) 10 ml PO Q6H PRN PRN Reason: Cough Last Admin: 06/30/19 20:11 Dose: 10 ml Documented by: Sodium Chloride (Saline 0.9%) 1,000 mls @ 20 mls/hr IV .Q24H [facility] Last Admin: 06/30/19 17:57 Dose: 20 mls/hr Documented by: Meropenem 1 gm/ Sodium (Chloride) 100 mls @ 200 mls/hr IVPB Q12HR [facility]; Protocol Last Admin: 06/30/19 20:11 Dose: 200 mls/hr Documented by: Insulin Aspart (Novolog) 0 unit SQ ACHS [facility]; Protocol Last Admin: 06/30/19 21:43 Dose: 6 unit Documented by: Insulin Aspart (Novolog) 5 unit SQ AC-TID [facility] Last Admin: 06/30/19 17:40 Dose: 5 unit Documented by: Insulin Detemir (Levemir) 30 unit SQ DAILY@0700 [facility] Last Admin: 06/30/19 09:17 Dose: 30 unit Documented by: Insulin Detemir (Levemir) 30 unit SQ HS [facility] Last Admin: 06/30/19 21:42 Dose: 30 unit Documented by: Losartan Potassium (Cozaar) 50 mg PO DAILY [facility] Last Admin: 06/30/19 09:16 Dose: 50 mg Documented by: Miscellaneous Information (Coumadin Per Pharmacy) 0 each MISCELLANE DIRECTED PRN PRN Reason: Per Protocol Montelukast Sodium (Singulair) 10 mg PO HS [facility] Last Admin: 06/30/19 20:11 Dose: 10 mg Documented by: Patient's Own Med ( Alendronate Sodium [ Fosamax] 70 Mg) 70 mg PO FR [facility] Last Admin: 06/29/19 07:58 Dose: Not Given Documented by: Potassium Chloride (K-Dur 20) 20 meq PO BID [facility] Last Admin: 06/30/19 20:11 Dose: 20 meq Documented by: Prednisone () 40 mg PO DAILY [facility] Last Admin: 06/30/19 09:16 Dose: 40 mg Documented by: Tramadol HCl (Ultram) 50 mg PO TID PRN PRN Reason: Pain Last Admin: 06/29/19 21:50 Dose: 50 mg Documented by: Warfarin Sodium (Coumadin) 5 mg PO HS@1800 [facility]; Protocol Last Admin: 06/30/19 17:57 Dose: 5 mg Documented by: Objective - Vital Signs Vital signs: Vital Signs Temp 97.7 F 06/30/19 16:16 Pulse 82 06/30/19 16:16 Resp 18 06/30/19 16:16 BP 165/70 06/30/19 16:16 Pulse Ox 99 06/30/19 16:16 Intake & Output 06/29/19 06/30/19 06/30/19 18:59 06:59 18:59 Intake Total 377 450 696 Balance 377 450 696 Intake: Intake, IV Titration 200 Amount Meropenem 1 gm In Sodium 100 Chloride 0.9% 100 ml @ 200 mls/hr IVPB Q12HR [facility] Rx#:[id number] Meropenem 1 gm In Sodium 100 Chloride 0.9% 100 ml @ 200 mls/hr IVPB Q8HR [facility] Rx#:[id number] Oral 377 450 496 Other: Voiding Method Toilet Toilet Toilet # Voids 1 1 2 # Bowel Movements 1 1 - Exam PHYSICAL EXAMINATION: GENERAL: The patient is alert and oriented x3, not in any acute distress. Well developed, well nourished. HEENT: no pallor, no icterus, no JVD, no Thyromegaly. CARDIOVASCULAR: S1 and S2 present. No murmurs, rubs, or gallops. PULMONARY: Diffuse bilateral rhonchi ABDOMEN: Soft, nontender, nondistended, normoactive bowel sounds. No palpable organomegaly. MUSCULOSKELETAL: No joint swelling or deformity. EXTREMITIES: No cyanosis, clubbing, or pedal edema. NEUROLOGICAL: Gross neurological examination did not reveal any focal deficits. SKIN: No rashes. - Labs CBC & Chem 7: 06/30/19 07:52 06/30/19 07:52 Labs: Abnormal Lab Results - Last 24 Hours (Table) 06/29/19 06/29/19 06/30/19 Range/Units 17:09 22:17 07:07 RBC (3.80-5.40) m/uL Hgb (11.4-16.0) gm/dL Hct (34.0-46.0) % RDW (11.5-15.5) % PT (9.0-12.0) sec INR (<1.2) BUN (7-17) mg/dL Glucose (74-99) mg/dL POC Glucose (mg/dL) 425 H 439 H 272 H (75-99) mg/dL 06/30/19 06/30/19 06/30/19 Range/Units 07:52 07:52 07:52 RBC 3.44 L (3.80-5.40) m/uL Hgb 9.1 L (11.4-16.0) gm/dL Hct 28.4 L (34.0-46.0) % RDW 15.8 H (11.5-15.5) % PT 21.9 H (9.0-12.0) sec INR 2.3 H (<1.2) BUN 33 H (7-17) mg/dL Glucose 251 H (74-99) mg/dL POC Glucose (mg/dL) (75-99) mg/dL 06/30/19 Range/Units 11:48 RBC (3.80-5.40) m/uL Hgb (11.4-16.0) gm/dL Hct (34.0-46.0) % RDW (11.5-15.5) % PT (9.0-12.0) sec INR (<1.2) BUN (7-17) mg/dL Glucose (74-99) mg/dL POC Glucose (mg/dL) 375 H (75-99) mg/dL Microbiology - Last 24 Hours (Table) 06/30/19 06:01 Gram Stain - Preliminary Sputum Sputum Culture - Preliminary 06/28/19 18:53 Blood Culture - Preliminary Blood No Growth after 24 hours Assessment and Plan Assessment: ASSESSMENT Acute on chronic hypoxic respiratory failure due to COPD exacerbation COPD exacerbation due to purulent tracheobronchitis History of Pseudomonas in sputum cultures Chronic bronchial asthma Atrial fibrillation on anticoagulation with warfarin Type 2 diabetes mellitus Hypertension Hypothyroidism Hard of hearing GERD PLAN: Patient has been started on meropenem depending upon her previous cultures which are showing Pseudomonas. Current sputum cultures and blood cultures pending. Patient to be continued on anticoagulation with Coumadin. INR at 2.3 today. Continue with the rest of her medication regimen. Continue with breathing treatments and prednisone. Further recommendations to follow depending on the progress of the patient.
[2019-07-01 07:04] LABS: Glucose,Whole Blood 120 mg/dL (75-99)
[2019-07-01] MEDS: INSULIN ASPART (NovoLOG) 100 UNIT/ML VIAL SQ SCH ×7 (07:10→20:43)
[2019-07-01] MEDS: predniSONE 20 MG TAB PO SCH (08:08)
[2019-07-01] MEDS: LIPITOR 10MG PO SCH (08:08)
[2019-07-01] MEDS: CITALOPRAM HYDROBROMIDE 20 MG TAB PO SCH (08:08)
[2019-07-01] MEDS: POTASSIUM CHLORIDE ER 20 MEQ TAB.ER PO SCH ×2 (08:08→20:43)
[2019-07-01] MEDS: FUROSEMIDE 40 MG TAB PO SCH (08:08)
[2019-07-01] MEDS: DILTIAZEM CD 180 MG CAP.ER.24H PO SCH (08:08)
[2019-07-01] MEDS: INSULIN DETEMIR (LEVEMIR) 100 UNIT/ML SYR SQ SCH ×2 (08:08→20:43)
[2019-07-01] MEDS: LOSARTAN 50 MG TAB PO SCH (08:08)
[2019-07-01] MEDS: FAMOTIDINE 20 MG TAB PO SCH (08:09)
[2019-07-01] MEDS: MEROPENEM 1 GM in SODIUM CHLORIDE 0.9% 100 ML IVPB SCH ×2 (08:09→20:43)
[2019-07-01 08:42] LABS: INR 2.3 (<1.2); Prothrombin Time 22.9 sec (9.0-12.0)
[2019-07-01 08:45] LABS: Basophils % (A) 0 %; Eosinophils % (A) 0 %; HCT 29.7 % (34.0-46.0); HGB 9.3 gm/dL (11.4-16.0); Hypochromasia Moderate; Lymphocytes # (A) 1.8 k/uL (1.0-4.8); Lymphocytes % (A) 20 %; MCH 26.1 pg (25.0-35.0); MCHC 31.4 g/dL (31.0-37.0); MCV 83.1 fL (80.0-100.0); Mean Platelet Volume 7.2; Monocytes # (A) 0.6 k/uL (0-1.0); Monocytes % (A) 6 %; Neutrophils # (A) 6.2 k/uL (1.3-7.7); Neutrophils % (A) 72 %; Platelet Count 229 k/uL (150-450); RBC 3.58 m/uL (3.80-5.40); WBC 8.7 k/uL (3.8-10.6)
[2019-07-01] MEDS: IPRATROPIUM-ALBUTEROL 3 ML NEB INHALATION SCH ×4 (08:54→20:21)
[2019-07-01] MEDS: BUDESONIDE 1 MG/2 ML NEBU INHALATION SCH ×2 (08:54→20:25)
[2019-07-01] MEDS: FORMOTEROL FUMARATE 20 MCG/2 ML NEBU INHALATION SCH ×2 (08:54→20:25)
[2019-07-01] MEDS: ALPRAZolam 0.5 MG TAB PO PRN ×2 (09:00→20:54)
[2019-07-01 09:02] LABS: Calcium 8.9 mg/dL (8.4-10.2)
[2019-07-01 11:53] LABS: Glucose,Whole Blood 176 mg/dL (75-99)
--- NOTE | 2019-07-01 11:55 | P.PN ---
Subjective Progress Note Date: 07/01/19 Principal diagnosis: Acute exacerbation of chronic obstructive pulmonary disease The patient is seen today 06/30/2019 in follow-up on the regular medical floor. She is currently awake and alert in no acute distress. Still complaining of cough and congestion. Still dyspneic with exertion. He is maintaining good O2 saturations in the upper 90s on 3 L/m per nasal cannula. She's afebrile. Blood culture reveals no growth to date. Sputum culture pending. White count 8.2. Hemoglobin 9.1. INR 2.3. Creatinine 0.98. She remains on bronchodilators, steroids, meropenem. The patient is seen today 07/01/2019 and follow-up on the regular medical floor. She is currently sitting up in bed. Awake and alert in no acute distress. Breathing a bit easier today compared to yesterday. Stating still not back to her baseline. She is maintaining good O2 saturations in the upper 90s on 2 L/m per nasal cannula. She's been afebrile. Blood cultures reveal no growth. Sputum culture pending. White count 8.7. Hemoglobin 9.3. INR 2.3. Creatinine 0.96. She remains on DuoNeb inhalations, Pulmicort and Perforomist inhalations, prednisone. Antibiotics in the form of meropenem. Anticoagulated with warfarin. Objective - Vital Signs Vital signs: Vital Signs Temp 97.6 F 07/01/19 07:00 Pulse 77 07/01/19 09:19 Resp 22 07/01/19 07:00 BP 179/79 07/01/19 07:00 Pulse Ox 98 07/01/19 07:00 Intake & Output 06/30/19 07/01/19 07/01/19 18:59 06:59 18:59 Intake Total 896 200 Balance 896 200 Intake: Intake, IV Titration 200 Amount Meropenem 1 gm In Sodium 100 Chloride 0.9% 100 ml @ 200 mls/hr IVPB Q12HR [facility] Rx#:[id number] Meropenem 1 gm In Sodium 100 Chloride 0.9% 100 ml @ 200 mls/hr IVPB Q8HR [facility] Rx#:[id number] Oral 696 200 Other: Voiding Method Toilet Toilet Toilet # Voids 2 1 # Bowel Movements 1 - Exam GENERAL EXAM: Alert, pleasant 73-year-old female patient, on 2 L nasal cannula, comfortable in no apparent distress. HEAD: Normocephalic. EYES: Normal reaction of pupils, equal size. NOSE: Clear with pink turbinates. THROAT: No erythema or exudates. NECK: No masses, no JVD. CHEST: No chest wall deformity. LUNGS: Equal air entry with bilateral end expiratory wheeze, diminished. CVS: S1 and S2 normal with no audible murmur, regular rhythm. ABDOMEN: No hepatosplenomegaly, normal bowel sounds, no guarding or rigidity. SPINE: No scoliosis or deformity SKIN: No rashes CENTRAL NERVOUS SYSTEM: No focal deficits, tone is normal in all 4 extremities. EXTREMITIES: There is no peripheral edema. No clubbing, no cyanosis. Periphera l pulses are intact. - Labs CBC & Chem 7: 07/01/19 08:06 07/01/19 08:06 Labs: Abnormal Lab Results - Last 24 Hours (Table) 06/30/19 06/30/19 07/01/19 Range/Units 17:07 21:05 07:02 RBC (3.80-5.40) m/uL Hgb (11.4-16.0) gm/dL Hct (34.0-46.0) % RDW (11.5-15.5) % PT (9.0-12.0) sec INR (<1.2) BUN (7-17) mg/dL POC Glucose (mg/dL) 379 H 340 H 120 H (75-99) mg/dL 07/01/19 07/01/19 07/01/19 Range/Units 08:06 08:06 08:06 RBC 3.58 L (3.80-5.40) m/uL Hgb 9.3 L (11.4-16.0) gm/dL Hct 29.7 L (34.0-46.0) % RDW 16.0 H (11.5-15.5) % PT 22.9 H (9.0-12.0) sec INR 2.3 H (<1.2) BUN 36 H (7-17) mg/dL POC Glucose (mg/dL) (75-99) mg/dL Microbiology - Last 24 Hours (Table) 06/28/19 18:53 Blood Culture - Preliminary Blood No Growth after 48 hours 06/30/19 06:01 Gram Stain - Preliminary Sputum Sputum Culture - Preliminary Assessment and Plan Assessment: Acute exacerbation of chronic obstructive pulmonary disease, complicated by purulent tracheobronchitis. No clear evidence of pneumonia. Sputum culture pending. Currently on meropenem. Chronic hypoxic respiratory failure secondary to above History of colonization of pseudomonas aeruginosa History of chronic bronchial asthma, moderate persistent History of atrial fibrillation anticoagulated with warfarin History of congestive heart failure Diabetes mellitus. GERD Hearing disorder Hypertension Hypothyroidism Plan: The patient was seen and evaluated by Dr. Butler Continue the current treatment plan Await sputum culture results Remains on meropenem Probable discharge in the a.m. We'll continue to follow I, the cosigning physician, performed a history & physical examination of the patient. Lungs sounds with bilateral end wheeze, diminished Maintaining good O2 saturations in the 90s on 2 L/m per nasal cannula. I discussed the asse ssment and plan of care with my nurse practitioner, Su Arias. I attest to the above note as dictated by her.
--- NOTE | 2019-07-01 13:55 | P.PN ---
Subjective Progress Note Date: 07/01/19 Principal diagnosis: COPD exacerbation Ms. Lloyd is a 73-year-old female with a past medical history of atrial fibrillation, asthma, heart failure, COPD, diabetes mellitus, GERD, hypertension, thyroid disorder, renal disease coming into the hospital with a chief complaint of difficulty in breathing which has been going on for couple of days. Patient was prescribed antibiotics as outpatient but did not respond and so admitted to the hospital for further management. Depending on her prior sensitivities patient has been started on meropenem and pulmonary is following the patient closely. On 06/30/2019 -patient is lying in the bed appears to be no acute distress. No acute events reported by nursing staff overnight. Patient still complaining of cough and mild difficulty in breathing. She denies having any chest pain or palpitations. No abdominal pain nausea vomiting or diarrhea. No dysuria or hematuria. On reviewing the patient's vitals she is saturating at 99% on 3 L of nasal cannula. Temperature 97.7, heart rate 82 and respiratory rate 18 with blo od pressure 1 65-70. On reviewing the patient's labs hemoglobin stable around 9. INR at 2.3 and rest of the labs within normal limits. On 07/01/2019 - patient is sitting up in a chair by the bedside appears to be no acute distress. Patient notes that her cough and difficulty in breathing is much better. On review systems patient denies having any fever chills or rigors. No chest pain or palpitations. No bowel pain nausea vomiting or diarrhea. No dysuria or hematuria. Sputum cultures pending and blood cultures no growth. On reviewing her weight is patient is saturating in the high 90s on 2 L of nasal cannula. Overnight afebrile. In reviewing the patient's labs her hemoglobin has been stable around 9.3, creatinine stable at 0.96 and white count of 8.7. Her blood sugars have been labile. Active Medications Albuterol/Ipratropium (Duoneb 0.5 Mg-3 Mg/3 Ml Soln) 3 ml INHALATION RT-QID [facility] Last Admin: 07/01/19 11:55 Dose: 3 ml Documented by: Alprazolam (Xanax) 0.5 mg PO TID PRN PRN Reason: Anxiety Last Admin: 06/29/19 21:51 Dose: 0.5 mg Documented by: Atorvastatin Calcium (Lipitor) 10 mg PO DAILY [facility] Last Admin: 07/01/19 08:08 Dose: 10 mg Documented by: Budesonide (Pulmicort) 1 mg INHALATION RT-BID [facility] Last Admin: 07/01/19 08:54 Dose: 1 mg Documented by: Citalopram Hydrobromide (Celexa) 40 mg PO DAILY [facility] Last Admin: 07/01/19 08:08 Dose: 40 mg Documented by: Diltiazem HCl (Cardizem Cd) 180 mg PO DAILY [facility] Last Admin: 07/01/19 08:08 Dose: 180 mg Documented by: Famotidine (Pepcid) 20 mg PO DAILY [facility] Last Admin: 07/01/19 08:09 Dose: 20 mg Documented by: Formoterol Fumarate (Perforomist) 20 mcg INHALATION RT-BID [facility] Last Admin: 07/01/19 08:54 Dose: 20 mcg Documented by: Furosemide (Lasix) 40 mg PO DAILY [facility] Last Admin: 07/01/19 08:08 Dose: 40 mg Documented by: Guaifenesin/Dextromethorphan (Robitussin Dm) 10 ml PO Q6H PRN PRN Reason: Cough Last Admin: 06/30/19 20:11 Dose: 10 ml Documented by: Sodium Chloride (Saline 0.9%) 1,000 mls @ 20 mls/hr IV .Q24H [facility] Last Admin: 06/30/19 17:57 Dose: 20 mls/hr Documented by: Meropenem 1 gm/ Sodium (Chloride) 100 mls @ 200 mls/hr IVPB Q12HR [facility]; Protocol Last Admin: 07/01/19 08:09 Dose: 200 mls/hr Documented by: Insulin Aspart (Novolog) 0 unit SQ ACHS [facility]; Protocol Last Admin: 07/01/19 12:16 Dose: 2 unit Documented by: Insulin Aspart (Novolog) 5 unit SQ AC-TID [facility] Last Admin: 07/01/19 12:16 Dose: Not Given Documented by: Insulin Detemir (Levemir) 30 unit SQ DAILY@0700 [facility] Last Admin: 07/01/19 08:08 Dose: 30 unit Documented by: Insulin Detemir (Levemir) 30 unit SQ HS [facility] Last Admin: 06/30/19 21:42 Dose: 30 unit Documented by: Losartan Potassium (Cozaar) 50 mg PO DAILY [facility] Last Admin: 07/01/19 08:08 Dose: 50 mg Documented by: Miscellaneous Information (Coumadin Per Pharmacy) 0 each MISCELLANE DIRECTED PRN PRN Reason: Per Protocol Montelukast Sodium (Singulair) 10 mg PO HS [facility] Last Admin: 06/30/19 20:11 Dose: 10 mg Documented by: Patient's Own Med ( Alendronate Sodium [ Fosamax] 70 Mg) 70 mg PO FR [facility] Last Admin: 06/29/19 07:58 Dose: Not Given Documented by: Potassium Chloride (K-Dur 20) 20 meq PO BID [facility] Last Admin: 07/01/19 08:08 Dose: 20 meq Documented by: Prednisone () 40 mg PO DAILY [facility] Last Admin: 07/01/19 08:08 Dose: 40 mg Documented by: Tramadol HCl (Ultram) 50 mg PO TID PRN PRN Reason: Pain Last Admin: 06/29/19 21:50 Dose: 50 mg Documented by: Warfarin Sodium (Coumadin) 5 mg PO HS@1800 [facility]; Protocol Last Admin: 06/30/19 17:57 Dose: 5 mg Documented by: Objective - Vital Signs Vital signs: Vital Signs Temp 97.6 F 07/01/19 07:00 Pulse 75 07/01/19 12:06 Resp 22 07/01/19 07:00 BP 179/79 07/01/19 07:00 Pulse Ox 98 07/01/19 07:00 Intake & Output 06/30/19 07/01/19 07/01/19 18:59 06:59 18:59 Intake Total 896 520 Balance 896 520 Intake: Intake, IV Titration 200 Amount Meropenem 1 gm In Sodium 100 Chloride 0.9% 100 ml @ 200 mls/hr IVPB Q12HR [facility] Rx#:[id number] Meropenem 1 gm In Sodium 100 Chloride 0.9% 100 ml @ 200 mls/hr IVPB Q8HR [facility] Rx#:[id number] Oral 696 520 Other: Voiding Method Toilet Toilet Toilet # Voids 2 1 2 # Bowel Movements 1 - Exam PHYSICAL EXAMINATION: GENERAL: The patient is alert and oriented x3, not in any acute distress. Well developed, well nourished. HEENT: no pallor, no icterus, no JVD, no Thyromegaly. CARDIOVASCULAR: S1 and S2 present. No murmurs, rubs, or gallops. PULMONARY: Diffuse bilateral rhonchi. No wheezing or crackles. ABDOMEN: Soft, nontender, nondistended, normoactive bowel sounds. No palpable organomegaly. MUSCULOSKELETAL: No joint swelling or deformity. EXTREMITIES: No cyanosis, clubbing, or pedal edema. NEUROLOGICAL: Gross neurological examination did not reveal any focal deficits. SKIN: No rashes. - Labs CBC & Chem 7: 07/01/19 08:06 07/01/19 08:06 Labs: Abnormal Lab Results - Last 24 Hours (Table) 06/30/19 06/30/19 07/01/19 Range/Units 17:07 21:05 07:02 RBC (3.80-5.40) m/uL Hgb (11.4-16.0) gm/dL Hct (34.0-46.0) % RDW (11.5-15.5) % PT (9.0-12.0) sec INR (<1.2) BUN (7-17) mg/dL POC Glucose (mg/dL) 379 H 340 H 120 H (75-99) mg/dL 07/01/19 07/01/19 07/01/19 Range/Units 08:06 08:06 08:06 RBC 3.58 L (3.80-5.40) m/uL Hgb 9.3 L (11.4-16.0) gm/dL Hct 29.7 L (34.0-46.0) % RDW 16.0 H (11.5-15.5) % PT 22.9 H (9.0-12.0) sec INR 2.3 H (<1.2) BUN 36 H (7-17) mg/dL POC Glucose (mg/dL) (75-99) mg/dL 07/01/19 Range/Units 11:41 RBC (3.80-5.40) m/uL Hgb (11.4-16.0) gm/dL Hct (34.0-46.0) % RDW (11.5-15.5) % PT (9.0-12.0) sec INR (<1.2) BUN (7-17) mg/dL POC Glucose (mg/dL) 176 H (75-99) mg/dL Microbiology - Last 24 Hours (Table) 06/30/19 06:01 Gram Stain - Preliminary Sputum Sputum Culture - Preliminary Gram Neg Bacilli 06/28/19 18:53 Blood Culture - Preliminary Blood No Growth after 48 hours Assessment and Plan Assessment: ASSESSMENT Acute on chronic hypoxic respiratory failure due to COPD exacerbation COPD exacerbation due to purulent tracheobronchitis History of Pseudomonas in sputum cultures Chronic bronchial asthma Atrial fibrillation on anticoagulation with warfarin Type 2 diabetes mellitus Hypertension Hypothyroidism Hard of hearing GERD PLAN: Patient has been started on meropenem depending upon her previous cultures which are showing Pseudomonas. Current sputum cultures and blood cultures pending. Patient to be continued on anticoagulation with Coumadin. INR at 2.3 today. Continue with the rest of her medication regimen. Continue with breathing treatments and prednisone. We will adjust the dose of insulin depending upon her blood sugars. Further recommendations to follow depending on the progress of the patient.
[2019-07-01 16:36] LABS: Glucose,Whole Blood 288 mg/dL (75-99)
[2019-07-01] MEDS: WARFARIN 5 MG TAB PO SCH (17:25)
[2019-07-01] MEDS: SODIUM CHLORIDE 0.9% 1,000 ML IV SCH (17:25)
[2019-07-01 20:23] LABS: Glucose,Whole Blood 304 mg/dL (75-99)
[2019-07-01] MEDS: MONTELUKAST 10 MG TAB PO SCH (20:43)
[2019-07-02 07:19] LABS: Glucose,Whole Blood 128 mg/dL (75-99)
[2019-07-02] MEDS: INSULIN ASPART (NovoLOG) 100 UNIT/ML VIAL SQ SCH ×7 (07:32→20:37)
[2019-07-02 07:35] LABS: INR 2.1 (<1.2); Prothrombin Time 20.5 sec (9.0-12.0)
[2019-07-02] MEDS: FORMOTEROL FUMARATE 20 MCG/2 ML NEBU INHALATION SCH ×2 (07:51→19:34)
[2019-07-02] MEDS: BUDESONIDE 1 MG/2 ML NEBU INHALATION SCH ×2 (07:51→19:34)
[2019-07-02] MEDS: IPRATROPIUM-ALBUTEROL 3 ML NEB INHALATION SCH ×4 (07:51→19:34)
[2019-07-02] MEDS: INSULIN DETEMIR (LEVEMIR) 100 UNIT/ML SYR SQ SCH ×2 (08:40→20:37)
[2019-07-02] MEDS: LIPITOR 10MG PO SCH (08:41)
[2019-07-02] MEDS: FUROSEMIDE 40 MG TAB PO SCH (08:41)
[2019-07-02] MEDS: CITALOPRAM HYDROBROMIDE 20 MG TAB PO SCH (08:41)
[2019-07-02] MEDS: FAMOTIDINE 20 MG TAB PO SCH (08:41)
[2019-07-02] MEDS: LOSARTAN 50 MG TAB PO SCH (08:41)
[2019-07-02] MEDS: predniSONE 20 MG TAB PO SCH (08:42)
[2019-07-02] MEDS: MEROPENEM 1 GM in SODIUM CHLORIDE 0.9% 100 ML IVPB SCH ×2 (08:43→20:37)
[2019-07-02] MEDS: DILTIAZEM CD 180 MG CAP.ER.24H PO SCH (08:45)
[2019-07-02] MEDS: POTASSIUM CHLORIDE ER 20 MEQ TAB.ER PO SCH ×2 (08:47→20:37)
[2019-07-02 11:21] LABS: Glucose,Whole Blood 134 mg/dL (75-99)
--- NOTE | 2019-07-02 11:43 | P.PN ---
Subjective Progress Note Date: 07/02/19 Principal diagnosis: Acute exacerbation of chronic obstructive pulmonary disease The patient is seen today 06/30/2019 in follow-up on the regular medical floor. She is currently awake and alert in no acute distress. Still complaining of cough and congestion. Still dyspneic with exertion. He is maintaining good O2 saturations in the upper 90s on 3 L/m per nasal cannula. She's afebrile. Blood culture reveals no growth to date. Sputum culture pending. White count 8.2. Hemoglobin 9.1. INR 2.3. Creatinine 0.98. She remains on bronchodilators, steroids, meropenem. The patient is seen today 07/01/2019 and follow-up on the regular medical floor. She is currently sitting up in bed. Awake and alert in no acute distress. Breathing a bit easier today compared to yesterday. Stating still not back to her baseline. She is maintaining good O2 saturations in the upper 90s on 2 L/m per nasal cannula. She's been afebrile. Blood cultures reveal no growth. Sputum culture pending. White count 8.7. Hemoglobin 9.3. INR 2.3. Creatinine 0.96. She remains on DuoNeb inhalations, Pulmicort and Perforomist inhalations, prednisone. Antibiotics in the form of meropenem. Anticoagulated with warfarin. The patient is seen today 07/02/2019 in follow-up on the regular medical floor. She is awake and alert in no acute distress. She is breathing easier today compared to yesterday. Still with some end expiratory wheeze. Loose congested cough. Sputum culture revealing gram-negative bacilli, ID pending. Blood culture reveals no growth. INR 2.1. Glucose 134. She remains on antibiotics in the form of meropenem. Continued on bronchodilators, steroids and ant icoagulation. Objective - Vital Signs Vital signs: Vital Signs Temp 97.6 F 07/02/19 07:00 Pulse 84 07/02/19 08:23 Resp 20 07/02/19 08:30 BP 157/82 07/02/19 07:00 Pulse Ox 100 07/02/19 07:00 Intake & Output 07/01/19 07/02/19 07/02/19 18:59 06:59 18:59 Intake Total 520 200 Balance 520 200 Intake: Oral 520 200 Other: Voiding Method Toilet Toilet Toilet # Voids 2 1 - Exam GENERAL EXAM: Alert, pleasant 73-year-old female patient, on 2 L nasal cannula, comfortable in no apparent distress. HEAD: Normocephalic. EYES: Normal reaction of pupils, equal size. NOSE: Clear with pink turbinates. THROAT: No erythema or exudates. NECK: No masses, no JVD. CHEST: No chest wall deformity. LUNGS: Equal air entry with bilateral end expiratory wheeze, diminished. CVS: S1 and S2 normal with no audible murmur, regular rhythm. ABDOMEN: No hepatosplenomegaly, normal bowel sounds, no guarding or rigidity. SPINE: No scoliosis or deformity SKIN: No rashes CENTRAL NERVOUS SYSTEM: No focal deficits, tone is normal in all 4 extremities. EXTREMITIES: There is no peripheral edema. No clubbing, no cyanosis. Peripheral pulses are intact. - Labs CBC & Chem 7: 07/01/19 08:06 07/01/19 08:06 Labs: Abnormal Lab Results - Last 24 Hours (Table) 07/01/19 07/01/19 07/01/19 Range/Units 11:41 16:34 20:20 PT (9.0-12.0) sec INR (<1.2) POC Glucose (mg/dL) 176 H 288 H 304 H (75-99) mg/dL 07/02/19 07/02/19 07/02/19 Range/Units 06:25 07:17 11:17 PT 20.5 H (9.0-12.0) sec INR 2.1 H (<1.2) POC Glucose (mg/dL) 128 H 134 H (75-99) mg/dL Microbiology - Last 24 Hours (Table) 06/28/19 18:53 Blood Culture - Preliminary Blood No Growth after 72 hours 06/30/19 06:01 Gram Stain - Preliminary Sputum Sputum Culture - Preliminary Gram Neg Bacilli Assessment and Plan Assessment: Acute exacerbation of chronic obstructive pulmonary disease, complicated by purulent tracheobronchitis. No clear evidence of pneumonia. Sputum culture revealing gram-negative bacilli. Currently on meropenem. Chronic hypoxic respiratory failure secondary to above History of colonization of pseudomonas aeruginosa History of chronic bronchial asthma, moderate persistent History of atrial fibrillation anticoagulated with warfarin History of congestive heart failure Diabetes mellitus. GERD Hearing disorder Hypertension Hypothyroidism Plan: The patient was seen and evaluated by Dr. Mendiola Continue the current treatment plan Await sputum culture, initial results with gram-negative bacilli Remains on meropenem We'll continue to follow I, the cosigning physician, performed a history & physical examination of the patient. Lungs sounds with bilateral end wheeze, diminished Maintaining good O2 saturations in the 90s on 2 L/m per nasal cannula. I discussed the assessment and plan of care with my nurse practitioner, Su Arias. I attest to the above note as dictated by her.
--- NOTE | 2019-07-02 12:42 | P.PN ---
Subjective Progress Note Date: 07/02/19 Principal diagnosis: COPD exacerbation Ms. Lloyd is a 73-year-old female with a past medical history of atrial fibrillation, asthma, heart failure, COPD, diabetes mellitus, GERD, hypertension, thyroid disorder, renal disease coming into the hospital with a chief complaint of difficulty in breathing which has been going on for couple of days. Patient was prescribed antibiotics as outpatient but did not respond and so admitted to the hospital for further management. Depending on her prior sensitivities patient has been started on meropenem and pulmonary is following the patient closely. On 06/30/2019 -patient is lying in the bed appears to be no acute distress. No acute events reported by nursing staff overnight. Patient still complaining of cough and mild difficulty in breathing. She denies having any chest pain or palpitations. No abdominal pain nausea vomiting or diarrhea. No dysuria or hematuria. On reviewing the patient's vitals she is saturating at 99% on 3 L of nasal cannula. Temperature 97.7, heart rate 82 and respiratory rate 18 with blood pressure 1 65-70. On reviewing the patient's labs hemoglobin stable around 9. INR at 2.3 and rest of the labs within normal limits. On 07/01/2019 - patient is sitting up in a chair by the bedside appears to be no acute distress. Patient notes that her cough and difficulty in breathing is much better. On review systems patient denies having any fever chills or rigors. No chest pain or palpitations. No bowel pain nausea vomiting or diarrhea. No dysuria or hematuria. Sputum cultures pending and blood cultures no growth. On reviewing her weight is patient is saturating in the high 90s on 2 L of nasal cannula. Overnight afebrile. In reviewing the patient's labs her hemoglobin has been stable around 9.3, creatinine stable at 0.96 and white count of 8.7. Her blood sugars have been labile. On 07/02/2019 -patient is sitting up in a chair by the bedside and having her [facility]. She states that she is still having cough but had difficulty in breathing has improved. Patient denies having any fevers, chills or rigors. No chest pain or palpitations. No abdominal pain nausea vomiting or diarrhea. No dysuria or hematuria. Patient is saturating in 100% on 2 L of nasal cannula. T-max over the past 24 hours is 98.1. Sputum cultures are positive for gram- negative bacilli. Blood cultures no growth. Her blood sugars have been under much better control. INR of 2.1. Active Medications Albuterol/Ipratropium (Duoneb 0.5 Mg-3 Mg/3 Ml Soln) 3 ml INHALATION RT-QID [facility] Last Admin: 07/02/19 11:48 Dose: 3 ml Documented by: Alprazolam (Xanax) 0.5 mg PO TID PRN PRN Reason: Anxiety Last Admin: 07/01/19 20:54 Dose: 0.5 mg Documented by: Atorvastatin Calcium (Lipitor) 10 mg PO DAILY [facility] Last Admin: 07/02/19 08:41 Dose: 10 mg Documented by: Budesonide (Pulmicort) 1 mg INHALATION RT-BID [facility] Last Admin: 07/02/19 07:51 Dose: 1 mg Documented by: Citalopram Hydrobromide (Celexa) 40 mg PO DAILY [facility] Last Admin: 07/02/19 08:41 Dose: 40 mg Documented by: Diltiazem HCl (Cardizem Cd) 180 mg PO DAILY [facility] Last Admin: 07/02/19 08:45 Dose: 180 mg Documented by: Famotidine (Pepcid) 20 mg PO DAILY [facility] Last Admin: 07/02/19 08:41 Dose: 20 mg Documented by: Formoterol Fumarate (Perforomist) 20 mcg INHALATION RT-BID [facility] Last Admin: 07/02/19 07:51 Dose: 20 mcg Documented by: Furosemide (Lasix) 40 mg PO DAILY [facility] Last Admin: 07/02/19 08:41 Dose: 40 mg Documented by: Guaifenesin/Dextromethorphan (Robitussin Dm) 10 ml PO Q6H PRN PRN Reason: Cough Last Admin: 06/30/19 20:11 Dose: 10 ml Documented by: Sodium Chloride (Saline 0.9%) 1,000 mls @ 20 mls/hr IV .Q24H [facility] Last Admin: 07/01/19 17:25 Dose: Not Given Documented by: Meropenem 1 gm/ Sodium (Chloride) 100 mls @ 200 mls/hr IVPB Q12HR [facility]; Protocol Last Admin: 07/02/19 08:43 Dose: 200 mls/hr Documented by: Insulin Aspart (Novolog) 0 unit SQ ACHS [facility]; Protocol Last Admin: 07/02/19 12:27 Dose: 1 unit Documented by: Insulin Aspart (Novolog) 5 unit SQ AC-TID [facility] Last Admin: 07/02/19 12:11 Dose: Not Given Documented by: Insulin Detemir (Levemir) 30 unit SQ DAILY@0700 [facility] Last Admin: 07/02/19 08:40 Dose: 30 unit Documented by: Insulin Detemir (Levemir) 30 unit SQ [facility] Last Admin: 07/01/19 20:43 Dose: 30 unit Documented by: Losartan Potassium (Cozaar) 50 mg PO DAILY [facility] Last Admin: 07/02/19 08:41 Dose: 50 mg Documented by: Miscellaneous Information (Coumadin Per Pharmacy) 0 each MISCELLANE DIRECTED PRN PRN Reason: Per Protocol Montelukast Sodium (Singulair) 10 mg PO [facility] Last Admin: 07/01/19 20:43 Dose: 10 mg Documented by: Patient's Own Med ( Alendronate Sodium [ Fosamax] 70 Mg) 70 mg PO [facility] Last Admin: 06/29/19 07:58 Dose: Not Given Documented by: Potassium Chloride (K-Dur 20) 20 meq PO BID [facility] Last Admin: 07/02/19 08:47 Dose: Not Given Documented by: Prednisone () 40 mg PO DAILY [facility] Last Admin: 07/02/19 08:42 Dose: 40 mg Documented by: Tramadol HCl (Ultram) 50 mg PO TID PRN PRN Reason: Pain Last Admin: 06/29/19 21:50 Dose: 50 mg Documented by: Warfarin Sodium (Coumadin) 5 mg PO HS@1800 [facility]; Protocol Last Admin: 07/01/19 17:25 Dose: 5 mg Documented by: Objective - Vital Signs Vital signs: Vital Signs Temp 97.6 F 07/02/19 07:00 Pulse 82 07/02/19 11:58 Resp 20 07/02/19 08:30 BP 157/82 07/02/19 07:00 Pulse Ox 100 07/02/19 07:00 Intake & Output 07/01/19 07/02/19 07/02/19 18:59 06:59 18:59 Intake Total 520 200 Balance 520 200 Intake: Oral 520 200 Other: Voiding Method Toilet Toilet Toilet # Voids 2 1 - Exam PHYSICAL EXAM GENERAL: The patient is alert and oriented x3, not in any acute distress. Well developed, well nourished. HEENT: no pallor, no icterus, no JVD, no Thyromegaly. CARDIOVASCULAR: S1 and S2 present. No murmurs, rubs, or gallops. PULMONARY: Diffuse bilateral rhonchi. No wheezing or crackles. ABDOMEN: Soft, nontender, nondistended, normoactive bowel sounds. No palpable organomegaly. MUSCULOSKELETAL: No joint swelling or deformity. EXTREMITIES: No cyanosis, clubbing, or pedal edema. NEUROLOGICAL: Gross neurological examination did not reveal any focal deficits. SKIN: No rashes. - Labs CBC & Chem 7: 07/01/19 08:06 07/01/19 08:06 Labs: Abnormal Lab Results - Last 24 Hours (Table) 07/01/19 07/01/19 07/02/19 Range/Units 16:34 20:20 06:25 PT 20.5 H (9.0-12.0) sec INR 2.1 H (<1.2) POC Glucose (mg/dL) 288 H 304 H (75-99) mg/dL 07/02/19 07/02/19 Range/Units 07:17 11:17 PT (9.0-12.0) sec INR (<1.2) POC Glucose (mg/dL) 128 H 134 H (75-99) mg/dL Microbiology - Last 24 Hours (Table) 06/28/19 18:53 Blood Culture - Preliminary Blood No Growth after 72 hours 06/30/19 06:01 Gram Stain - Preliminary Sputum Sputum Culture - Preliminary Gram Neg Bacilli Assessment and Plan Assessment: ASSESSMENT Acute on chronic hypoxic respiratory failure due to COPD exacerbation COPD exacerbation due to purulent tracheobronchitis History of Pseudomonas in sputum cultures Chronic bronchial asthma Atrial fibrillation on anticoagulation with warfarin Type 2 diabetes mellitus Hypertension Hypothyroidism Hard of hearing GERD PLAN: Patient has been on meropenem depending upon her previous cultures which are showing Pseudomonas. Current sputum cultures showing gram-negative bacilli and blood cultures have been negative. Patient to be continued on anticoagulation with Coumadin. INR at 2.1 today. Continue with the rest of her medication regimen. Continue with breathing treatments and prednisone. We will adjust the dose of insulin depending upon her blood sugars. Further recommendations to follow depending on the progress of the patient.
--- NOTE | 2019-07-02 14:46 | CDI ---
Documentation Clarification Form Date: 07/02/2019 02:25:23 PM From: Tamika Llanos RN, CCDS Admit Date: 06/30/2019 12:34:00 PM Patient Name: Xi Lloyd Visit Number: [id number] Discharge Date: ATTENTION: The Clinical Documentation Specialists (CDI) and [facility] Coding Staff appreciate your assistance in clarifying documentation. Please respond to the clarification below the line at the bottom and electronically sign. The CDI & [facility] Coding staff will review the response and follow-up if needed. Please note: Queries are made part of the Legal Health Record. If you have any questions, please contact the author of this message via ITS. Dr. Tracee David Atrial Fibrillation is documented in the ED, past medical history with current treatment of Coumadin, H/P and ongoing progress notes and further specificity is requested. History/Risk Factors: Atrial Fibrillation, Asthma, COPD, Heart failure Diabetes mellitus, Hypertension Clinical Indicators: 73-year-old female who present to ED with complaints of shortness of breath. Atrial Fibrillation documented in the HPI and H/P. 06/27 EKG/telemetry: Normal sinus rhythm 77 bpm Treatment: Coumadin 5 mg po @ 1800 Monitor PT/INR Daily X3 In your professional opinion, can you please clarify the type of Atrial Fibrillation, if known? Chronic/Permanent Paroxysmal Persistent Other, please specify Unable to determine (Last Revision: May 2017) Paroxysmal A fibrillation MTDD
[2019-07-02 16:30] LABS: Glucose,Whole Blood 271 mg/dL (75-99)
[2019-07-02] MEDS: WARFARIN 5 MG TAB PO SCH (17:37)
[2019-07-02] MEDS: SODIUM CHLORIDE 0.9% 1,000 ML IV SCH (17:37)
[2019-07-02 20:25] LABS: Glucose,Whole Blood 282 mg/dL (75-99)
[2019-07-02] MEDS: MONTELUKAST 10 MG TAB PO SCH (20:37)
[2019-07-02] MEDS: ALPRAZolam 0.5 MG TAB PO PRN (20:45)
[2019-07-03 06:48] LABS: Glucose,Whole Blood 64 mg/dL (75-99)
[2019-07-03 07:06] LABS: Glucose,Whole Blood 74 mg/dL (75-99)
[2019-07-03] MEDS: INSULIN ASPART (NovoLOG) 100 UNIT/ML VIAL SQ SCH ×7 (07:14→21:03)
[2019-07-03 07:29] LABS: INR 2.1 (<1.2); Prothrombin Time 20.7 sec (9.0-12.0)
[2019-07-03] MEDS: LIPITOR 10MG PO SCH (07:53)
[2019-07-03] MEDS: LOSARTAN 50 MG TAB PO SCH (07:53)
[2019-07-03] MEDS: INSULIN DETEMIR (LEVEMIR) 100 UNIT/ML SYR SQ SCH ×2 (07:53→21:03)
[2019-07-03] MEDS: POTASSIUM CHLORIDE ER 20 MEQ TAB.ER PO SCH ×2 (07:53→20:40)
[2019-07-03] MEDS: CITALOPRAM HYDROBROMIDE 20 MG TAB PO SCH (07:54)
[2019-07-03] MEDS: DILTIAZEM CD 180 MG CAP.ER.24H PO SCH (07:54)
[2019-07-03] MEDS: FUROSEMIDE 40 MG TAB PO SCH (07:54)
[2019-07-03] MEDS: FAMOTIDINE 20 MG TAB PO SCH (07:54)
[2019-07-03] MEDS: predniSONE 20 MG TAB PO SCH (07:55)
[2019-07-03] MEDS: MEROPENEM 1 GM in SODIUM CHLORIDE 0.9% 100 ML IVPB SCH ×2 (07:57→20:41)
[2019-07-03] MEDS: FORMOTEROL FUMARATE 20 MCG/2 ML NEBU INHALATION SCH ×2 (08:10→19:19)
[2019-07-03] MEDS: BUDESONIDE 1 MG/2 ML NEBU INHALATION SCH ×2 (08:10→19:19)
[2019-07-03] MEDS: IPRATROPIUM-ALBUTEROL 3 ML NEB INHALATION SCH ×4 (08:10→19:19)
[2019-07-03 11:42] LABS: Glucose,Whole Blood 98 mg/dL (75-99)
--- NOTE | 2019-07-03 14:26 | P.PN ---
Subjective Progress Note Date: 07/03/19 Principal diagnosis: Acute exacerbation of chronic obstructive pulmonary disease The patient is seen today 06/30/2019 in follow-up on the regular medical floor. She is currently awake and alert in no acute distress. Still complaining of cough and congestion. Still dyspneic with exertion. He is maintaining good O2 saturations in the upper 90s on 3 L/m per nasal cannula. She's afebrile. Blood culture reveals no growth to date. Sputum culture pending. White count 8.2. Hemoglobin 9.1. INR 2.3. Creatinine 0.98. She remains on bronchodilators, steroids, meropenem. The patient is seen today 07/01/2019 and follow-up on the regular medical floor. She is currently sitting up in bed. Awake and alert in no acute distress. Breathing a bit easier today compared to yesterday. Stating still not back to her baseline. She is maintaining good O2 saturations in the upper 90s on 2 L/m per nasal cannula. She's been afebrile. Blood cultures reveal no growth. Sputum culture pending. White count 8.7. Hemoglobin 9.3. INR 2.3. Creatinine 0.96. She remains on DuoNeb inhalations, Pulmicort and Perforomist inhalations, prednisone. Antibiotics in the form of meropenem. Anticoagulated with warfarin. The patient is seen today 07/02/2019 in follow-up on the regular medical floor. She is awake and alert in no acute distress. She is breathing easier today compared to yesterday. Still with some end expiratory wheeze. Loose congested cough. Sputum culture revealing gram-negative bacilli, ID pending. Blood culture reveals no growth. INR 2.1. Glucose 134. She remains on antibiotics in the form of meropenem. Continued on bronchodilators, steroids and ant icoagulation. The patient is seen today 07/03/2019 in follow-up on the regular medical floor. She is currently sitting up in a chair at the bedside. Awake and alert in no acute distress. She is maintaining O2 saturations in the 90s on room air. She's been afebrile. Sputum cultures positive for gram-negative bacilli. Blood culture reveals no growth. INR 2.1. Blood glucose 98. She remains on meropenem, bronchodilators and steroids. Objective - Vital Signs Vital signs: Vital Signs Temp 98.4 F 07/03/19 07:00 Pulse 82 07/03/19 11:35 Resp 18 07/03/19 07:45 BP 185/96 07/03/19 07:00 Pulse Ox 97 07/03/19 07:00 Intake & Output 07/02/19 07/03/19 07/03/19 18:59 06:59 18:59 Intake Total 380 100 Balance 380 100 Intake: IV 100 Meropenem 1 gm In Sodium 100 Chloride 0.9% 100 ml @ 200 mls/hr IVPB Q12HR [facility] Rx#:[id number] Oral 380 Other: Voiding Method Toilet # Voids 2 1 - Exam GENERAL EXAM: Alert, pleasant 73-year-old female patient, on room air, comfortable in no apparent distress. HEAD: Normocephalic. EYES: Normal reaction of pupils, equal size. NOSE: Clear with pink turbinates. THROAT: No erythema or exudates. NECK: No masses, no JVD. CHEST: No chest wall deformity. LUNGS: Equal air entry with bilateral end expiratory wheeze, diminished. CVS: S1 and S2 normal with no audible murmur, regular rhythm. ABDOMEN: No hepatosplenomegaly, normal bowel sounds, no guarding or rigidity. SPINE: No scoliosis or deformity SKIN: No rashes CENTRAL NERVOUS SYSTEM: No focal deficits, tone is normal in all 4 extremities. EXTREMITIES: There is no peripheral edema. No clubbing, no cyanosis. Pe ripheral pulses are intact. - Labs CBC & Chem 7: 07/01/19 08:06 07/01/19 08:06 Labs: Abnormal Lab Results - Last 24 Hours (Table) 07/02/19 07/02/19 07/03/19 Range/Units 16:22 20:24 06:47 PT (9.0-12.0) sec INR (<1.2) POC Glucose (mg/dL) 271 H 282 H 64 L (75-99) mg/dL 07/03/19 07/03/19 Range/Units 07:04 07:09 PT 20.7 H (9.0-12.0) sec INR 2.1 H (<1.2) POC Glucose (mg/dL) 74 L (75-99) mg/dL Microbiology - Last 24 Hours (Table) 06/30/19 06:01 Gram Stain - Preliminary Sputum Sputum Culture - Preliminary Gram Neg Bacilli 06/28/19 18:53 Blood Culture - Preliminary Blood No Growth after 96 hours Assessment and Plan Assessment: Acute exacerbation of chronic obstructive pulmonary disease, complicated by purulent tracheobronchitis. Sputum culture revealing gram-negative bacilli. Currently on meropenem. Chronic hypoxic respiratory failure secondary to above History of colonization of pseudomonas aeruginosa History of chronic bronchial asthma, moderate persistent History of atrial fibrillation anticoagulated with warfarin History of congestive heart failure Diabetes mellitus. GERD Hearing disorder Hypertension Hypothyroidism Plan: The patient was seen and evaluated by Dr. Mendiola Await final sputum culture results Remains on meropenem We'll continue to follow I, the cosigning physician, performed a history & physical examination of the patient. Lungs sounds with bilateral end wheeze, diminished Maintaining good O2 saturations in the 90s on room air. I discussed the assessment and plan of care with my nurse practitioner, Su Arias. I attest to the above note as dictated by her.
[2019-07-03 16:57] LABS: Glucose,Whole Blood 319 mg/dL (75-99)
[2019-07-03] MEDS: WARFARIN 5 MG TAB PO SCH (17:50)
[2019-07-03] MEDS: MONTELUKAST 10 MG TAB PO SCH (20:40)
[2019-07-03] MEDS: SODIUM CHLORIDE 0.9% 1,000 ML IV SCH (20:40)
[2019-07-03] MEDS: ALPRAZolam 0.5 MG TAB PO PRN (20:40)
[2019-07-03 20:48] LABS: Glucose,Whole Blood 258 mg/dL (75-99)
--- NOTE | 2019-07-03 21:46 | P.PN ---
Subjective Progress Note Date: 07/03/19 Principal diagnosis: Acute on chronic hypoxic respiratory failure due to COPD exacerbation Ms. Lloyd is a 73-year-old female with a past medical history of atrial fibrillation, asthma, heart failure, COPD, diabetes mellitus, GERD, hypertension, thyroid disorder, renal disease coming into the hospital with a chief complaint of difficulty in breathing which has been going on for couple of days. Patient was prescribed antibiotics as outpatient but did not respond and so admitted to the hospital for further management. Depending on her prior sensitivities patient has been started on meropenem and pulmonary is following the patient closely. On 06/30/2019 -patient is lying in the bed appears to be no acute distress. No acute events reported by nursing staff overnight. Patient still complaining of cough and mild difficulty in breathing. She denies having any chest pain or palpitations. No abdominal pain nausea vomiting or diarrhea. No dysuria or hematuria. On reviewing the patient's vitals she is saturating at 99% on 3 L of nasal cannula. Temperature 97.7, heart rate 82 and respiratory rate 18 with blood pressure 1 65-70. On reviewing the patient's labs hemoglobin stable around 9. INR at 2.3 and rest of the labs within normal limits. On 07/01/2019 - patient is sitting up in a chair by the bedside appears to be no acute distress. Patient notes that her cough and difficulty in breathing is much better. On review systems patient denies having any fever chills or rigors. No chest pain or palpitations. No bowel pain nausea vomiting or diarrhea. No dysuria or hematuria. Sputum cultures pending and blood cultures no growth. On reviewing her weight is patient is saturating in the high 90s on 2 L of nasal cannula. Overnight afebrile. In reviewing the patient's labs her hemoglobin has been stable around 9.3, creatinine stable at 0.96 and white count of 8.7. Her blood sugars have been labile. On 07/02/2019 -patient is sitting up in a chair by the bedside and having her lunch. She states that she is still having cough but had difficulty in breathing has improved. Patient denies having any fevers, chills or rigors. No chest pain or palpitations. No abdominal pain nausea vomiting or diarrhea. No dysuria or hematuria. Patient is saturating in 100% on 2 L of nasal cannula. T-max over the past 24 hours is 98.1. Sputum cultures are positive for gram- negative bacilli. Blood cultures no growth. Her blood sugars have been under much better control. INR of 2.1. on 07/03/2019 -NO acute events reported by staff overnight. She is currently sitting up in a chair at the bedside. She mentions that her breathing is getting better gradually. She is maintaining O2 saturations in the 90s on room air, which are better compared to yesterdday. Tmax in the past 24 hrs - 98.6, afebrile. Sputum cultures positive for gram-negative bacilli pending speciation. On coumadin for anti coagulation, INR 2.1. Active Medications Albuterol/Ipratropium (Duoneb 0.5 Mg-3 Mg/3 Ml Soln) 3 ml INHALATION RT-QID [facility] Last Admin: 07/03/19 19:19 Dose: 3 ml Documented by: Alprazolam (Xanax) 0.5 mg PO TID PRN PRN Reason: Anxiety Last Admin: 07/03/19 20:40 Dose: 0.5 mg Documented by: Atorvastatin Calcium (Lipitor) 10 mg PO DAILY [facility] Last Admin: 07/03/19 07:53 Dose: 10 mg Documented by: Budesonide (Pulmicort) 1 mg INHALATION RT-BID [facility] Last Admin: 07/03/19 19:19 Dose: 1 mg Documented by: Citalopram Hydrobromide (Celexa) 40 mg PO DAILY [facility] Last Admin: 07/03/19 07:54 Dose: 40 mg Documented by: Diltiazem HCl (Cardizem Cd) 180 mg PO DAILY [facility] Last Admin: 07/03/19 07:54 Dose: 180 mg Documented by: Famotidine (Pepcid) 20 mg PO DAILY [facility] Last Admin: 07/03/19 07:54 Dose: 20 mg Documented by: Formoterol Fumarate (Perforomist) 20 mcg INHALATION RT-BID [facility] Last Admin: 07/03/19 19:19 Dose: 20 mcg Documented by: Furosemide (Lasix) 40 mg PO DAILY [facility] Last Admin: 07/03/19 07:54 Dose: 40 mg Documented by: Guaifenesin/Dextromethorphan (Robitussin Dm) 10 ml PO Q6H PRN PRN Reason: Cough Last Admin: 06/30/19 20:11 Dose: 10 ml Documented by: Sodium Chloride (Saline 0.9%) 1,000 mls @ 20 mls/hr IV .Q24H [facility] Last Admin: 07/03/19 20:40 Dose: 20 mls/hr Documented by: Meropenem 1 gm/ Sodium (Chloride) 100 mls @ 200 mls/hr IVPB Q12HR [facility]; Protocol Last Admin: 07/03/19 20:41 Dose: 200 mls/hr Documented by: Insulin Aspart (Novolog) 0 unit SQ ACHS [facility]; Protocol Last Admin: 07/03/19 21:03 Dose: 4 unit Documented by: Insulin Aspart (Novolog) 5 unit SQ AC-TID [facility] Last Admin: 07/03/19 17:50 Dose: 5 unit Documented by: Insulin Detemir (Levemir) 30 unit SQ DAILY@0700 [facility] Last Admin: 07/03/19 07:53 Dose: 30 unit Documented by: Insulin Detemir (Levemir) 30 unit SQ [facility] Last Admin: 07/03/19 21:03 Dose: 30 unit Documented by: Losartan Potassium (Cozaar) 50 mg PO DAILY [facility] Last Admin: 07/03/19 07:53 Dose: 50 mg Documented by: Miscellaneous Information (Coumadin Per Pharmacy) 0 each MISCELLANE DIRECTED PRN PRN Reason: Per Protocol Montelukast Sodium (Singulair) 10 mg PO [facility] Last Admin: 07/03/19 20:40 Dose: 10 mg Documented by: Patient's Own Med ( Alendronate Sodium [ Fosamax] 70 Mg) 70 mg PO FR [facility] Last Admin: 06/29/19 07:58 Dose: Not Given Documented by: Potassium Chloride (K-Dur 20) 20 meq PO BID [facility] Last Admin: 07/03/19 20:40 Dose: 20 meq Documented by: Prednisone () 40 mg PO DAILY [facility] Last Admin: 07/03/19 07:55 Dose: 40 mg Documented by: Tramadol HCl (Ultram) 50 mg PO TID PRN PRN Reason: Pain Last Admin: 06/29/19 21:50 Dose: 50 mg Documented by: Warfarin Sodium (Coumadin) 5 mg PO HS@1800 [facility]; Protocol Last Admin: 07/03/19 17:50 Dose: 5 mg Documented by: Objective - Vital Signs Vital signs: Vital Signs Temp 98.2 F 07/03/19 15:00 Pulse 87 07/03/19 19:46 Resp 20 07/03/19 15:00 BP 156/73 07/03/19 15:00 Pulse Ox 99 07/03/19 15:00 Intake & Output 07/03/19 07/03/19 07/04/19 06:59 18:59 06:59 Intake Total 100 Balance 100 Intake: IV 100 Meropenem 1 gm In Sodium 100 Chloride 0.9% 100 ml @ 200 mls/hr IVPB Q12HR [facility] Rx#:[id number] Other: # Voids 1 2 - Exam PHYSICAL EXAM GENERAL: The patient is alert and oriented x3, not in any acute distress. HEENT: no pallor, no icterus, no JVD, no Thyromegaly. CARDIOVASCULAR: S1 and S2 present. No murmurs, rubs, or gallops. PULMONARY: Diffuse bilateral rhonchi. No wheezing or crackles. ABDOMEN: Soft, nontender, nondistended, normoactive bowel sounds. No palpable organomegaly. MUSCULOSKELETAL: No joint swelling or deformity. EXTREMITIES: No cyanosis, clubbing, or pedal edema. NEUROLOGICAL: Gross neurological examination did not reveal any focal deficits. - Labs CBC & Chem 7: 07/01/19 08:06 07/01/19 08:06 Labs: Abnormal Lab Results - Last 24 Hours (Table) 07/02/19 07/03/19 07/03/19 Range/Units 20:24 06:47 07:04 PT (9.0-12.0) sec INR (<1.2) POC Glucose (mg/dL) 282 H 64 L 74 L (75-99) mg/dL 07/03/19 07/03/19 Range/Units 07:09 16:55 PT 20.7 H (9.0-12.0) sec INR 2.1 H (<1.2) POC Glucose (mg/dL) 319 H (75-99) mg/dL Microbiology - Last 24 Hours (Table) 06/30/19 06:01 Gram Stain - Preliminary Sputum Sputum Culture - Preliminary Gram Neg Bacilli 06/28/19 18:53 Blood Culture - Preliminary Blood No Growth after 96 hours Assessment and Plan Assessment: ASSESSMENT Acute on chronic hypoxic respiratory failure due to COPD exacerbation COPD exacerbation due to purulent tracheobronchitis History of Pseudomonas in sputum cultures Chronic bronchial asthma Atrial fibrillation on anticoagulation with warfarin Type 2 diabetes mellitus Hypertension Hypothyroidism Hard of hearing GERD PLAN: Patient will be continued on meropenem as her previous cultures which are showing Pseudomonas until finalization of sputum cultures. Current sputum cultures showing gram-negative bacilli and blood cultures have been negative. Patient to be continued on anticoagulation with Coumadin. INR at 2.1 today. Continue with breathing treatments and prednisone. Blood sugars WNL. Further recommendations based on the clinical course.
[2019-07-04 06:54] LABS: Glucose,Whole Blood 46 mg/dL (75-99)
[2019-07-04] MEDS: FORMOTEROL FUMARATE 20 MCG/2 ML NEBU INHALATION SCH ×2 (06:58→19:54)
[2019-07-04] MEDS: IPRATROPIUM-ALBUTEROL 3 ML NEB INHALATION SCH ×4 (06:58→19:54)
[2019-07-04] MEDS: BUDESONIDE 1 MG/2 ML NEBU INHALATION SCH ×2 (06:58→19:54)
[2019-07-04] MEDS ORDERED: DEXTROSE 50% SYRINGE 50 ML IVP ONE (07:10)
[2019-07-04] MEDS ORDERED: DEXTROSE 50% SYRINGE 50 ML IVP STA (07:14)
[2019-07-04] MEDS: INSULIN ASPART (NovoLOG) 100 UNIT/ML VIAL SQ SCH ×7 (07:17→20:41)
[2019-07-04 07:23] LABS: Glucose,Whole Blood 163 mg/dL (75-99)
[2019-07-04 07:40] LABS: INR 1.9 (<1.2); Prothrombin Time 18.7 sec (9.0-12.0)
[2019-07-04] MEDS: MEROPENEM 1 GM in SODIUM CHLORIDE 0.9% 100 ML IVPB SCH ×2 (09:01→19:53)
[2019-07-04] MEDS: DILTIAZEM CD 180 MG CAP.ER.24H PO SCH (09:01)
[2019-07-04] MEDS: LIPITOR 10MG PO SCH (09:01)
[2019-07-04] MEDS: LOSARTAN 50 MG TAB PO SCH (09:01)
[2019-07-04] MEDS: CITALOPRAM HYDROBROMIDE 20 MG TAB PO SCH (09:02)
[2019-07-04] MEDS: FAMOTIDINE 20 MG TAB PO SCH (09:02)
[2019-07-04] MEDS: FUROSEMIDE 40 MG TAB PO SCH (09:02)
[2019-07-04] MEDS: POTASSIUM CHLORIDE ER 20 MEQ TAB.ER PO SCH ×2 (09:03→20:41)
[2019-07-04] MEDS: predniSONE 20 MG TAB PO SCH (09:03)
[2019-07-04 12:04] LABS: Glucose,Whole Blood 190 mg/dL (75-99)
[2019-07-04] MEDS: INSULIN DETEMIR (LEVEMIR) 100 UNIT/ML SYR SQ SCH ×2 (12:36→20:42)
--- NOTE | 2019-07-04 13:42 | P.PN ---
Subjective Progress Note Date: 07/04/19 Principal diagnosis: Acute exacerbation of chronic obstructive pulmonary disease The patient is seen today 06/30/2019 in follow-up on the regular medical floor. She is currently awake and alert in no acute distress. Still complaining of cough and congestion. Still dyspneic with exertion. He is maintaining good O2 saturations in the upper 90s on 3 L/m per nasal cannula. She's afebrile. Blood culture reveals no growth to date. Sputum culture pending. White count 8.2. Hemoglobin 9.1. INR 2.3. Creatinine 0.98. She remains on bronchodilators, steroids, meropenem. The patient is seen today 07/01/2019 and follow-up on the regular medical floor. She is currently sitting up in bed. Awake and alert in no acute distress. Breathing a bit easier today compared to yesterday. Stating still not back to her baseline. She is maintaining good O2 saturations in the upper 90s on 2 L/m per nasal cannula. She's been afebrile. Blood cultures reveal no growth. Sputum culture pending. White count 8.7. Hemoglobin 9.3. INR 2.3. Creatinine 0.96. She remains on DuoNeb inhalations, Pulmicort and Perforomist inhalations, prednisone. Antibiotics in the form of meropenem. Anticoagulated with warfarin. The patient is seen today 07/02/2019 in follow-up on the regular medical floor. She is awake and alert in no acute distress. She is breathing easier today compared to yesterday. Still with some end expiratory wheeze. Loose congested cough. Sputum culture revealing gram-negative bacilli, ID pending. Blood culture reveals no growth. INR 2.1. Glucose 134. She remains on antibiotics in the form of meropenem. Continued on bronchodilators, steroids and ant icoagulation. The patient is seen today 07/03/2019 in follow-up on the regular medical floor. She is currently sitting up in a chair at the bedside. Awake and alert in no acute distress. She is maintaining O2 saturations in the 90s on room air. She's been afebrile. Sputum cultures positive for gram-negative bacilli. Blood culture reveals no growth. INR 2.1. Blood glucose 98. She remains on meropenem, bronchodilators and steroids. On 07/04/2019 patient is seen in follow-up on general medical floor, still quite bronchospastic on today's exam, but seems to be less congested, continues on meropenem, breathing treatments, and steroids. Sputum culture still shows gram- negative bacilli, awaiting final organism identification. No fever or chills. Objective - Vital Signs Vital signs: Vital Signs Temp 98.1 F 07/04/19 07:00 Pulse 82 07/04/19 11:10 Resp 17 07/04/19 07:05 BP 149/70 07/04/19 07:00 Pulse Ox 100 07/04/19 07:00 Intake & Output 07/03/19 07/04/19 07/04/19 18:59 06:59 18:59 Intake Total 260 Balance 260 Intake: IV 100 Meropenem 1 gm In Sodium 100 Chloride 0.9% 100 ml @ 200 mls/hr IVPB Q12HR [facility] Rx#:[id number] Intake, IV Titration 160 Amount Sodium Chloride 0.9% 1, 160 000 ml @ 20 mls/hr IV . Q24H [facility] Rx#:[id number] Other: # Voids 2 - Exam GENERAL EXAM: Alert, very pleasant, 73-year-old white female, on 2 L of oxygen with a pulse of 100% comfortable in no apparent distress. HEAD: Normocephalic/atraumatic. EYES: Normal reaction of pupils, equal size. Conjunctiva pink, sclera white. NOSE: Clear with pink turbinates. THROAT: No erythema or exudates. NECK: No masses, no JVD, no thyroid enlargement, no adenopathy. CHEST: No chest wall deformity. Symmetrical expansion. LUNGS: Equal air entry with diffuse wheezes, CVS: Regular rate and rhythm, normal S1 and S2, no gallops, no murmurs, no rubs ABDOMEN: Soft, nontender. No hepatosplenomegaly, normal bowel sounds, no guarding or rigidity. EXTREMITIES: No clubbing, no edema, no cyanosis, 2+ pulses and upper and lower extremities. MUSCULOSKELETAL: Muscle strength and tone normal. SPINE: No scoliosis or deformity SKIN: No rashes CENTRAL NERVOUS SYSTEM: Alert and oriented -3. No focal deficits, tone is normal in all 4 extremities. PSYCHIATRIC: Alert and oriented -3. Appropriate affect. Intact judgment and insight. - Labs CBC & Chem 7: 07/01/19 08:06 07/01/19 08:06 Labs: Abnormal Lab Results - Last 24 Hours (Table) 07/03/19 07/03/19 07/04/19 Range/Units 16:55 20:35 06:50 PT 18.7 H (9.0-12.0) sec INR 1.9 H (<1.2) POC Glucose (mg/dL) 319 H 258 H (75-99) mg/dL 07/04/19 07/04/19 07/04/19 Range/Units 06:53 07:22 11:58 PT (9.0-12.0) sec INR (<1.2) POC Glucose (mg/dL) 46 L 163 H 190 H (75-99) mg/dL Microbiology - Last 24 Hours (Table) 06/28/19 18:53 Blood Culture - Preliminary Blood No Growth after 120 hours 06/30/19 06:01 Gram Stain - Preliminary Sputum Sputum Culture - Preliminary Gram Neg Bacilli Assessment and Plan Plan: Assessment: Acute exacerbation of chronic obstructive pulmonary disease, complicated by purulent tracheobronchitis. Sputum culture revealing gram-negative bacilli. Currently on meropenem. Chronic hypoxic respiratory failure secondary to above History of colonization of pseudomonas aeruginosa History of chronic bronchial asthma, moderate persistent History of atrial fibrillation anticoagulated with warfarin History of congestive heart failure Diabetes mellitus. GERD Hearing disorder Hypertension Hypothyroidism Plan: Awaiting final identification of the sputum culture organism which showed gram-negative bacilli. Continue current medical treatment, patient continues to be bronchospastic, no fever or chills, vital signs are stable, we'll continue to follow I performed a history & physical examination of the patient and discussed their management with my nurse practitioner, Maryjo Parisi. I reviewed the nurse practitioner's note and agree with the documented findings and plan of care. Lung sounds are positive for diffuse wheezes throughout the lung carrera. The findings and the impression was discussed with the patient. I attest to the documentation by the nurse practitioner. Time with Patient: Less than 30
[2019-07-04 16:40] LABS: Glucose,Whole Blood 267 mg/dL (75-99)
[2019-07-04] MEDS: WARFARIN 5 MG TAB PO SCH (17:54)
[2019-07-04] MEDS: SODIUM CHLORIDE 0.9% 1,000 ML IV SCH (17:54)
[2019-07-04 20:21] LABS: Glucose,Whole Blood 389 mg/dL (75-99)
[2019-07-04] MEDS: ALPRAZolam 0.5 MG TAB PO PRN (20:41)
[2019-07-04] MEDS: MONTELUKAST 10 MG TAB PO SCH (20:41)
[2019-07-05 06:51] LABS: Glucose,Whole Blood 85 mg/dL (75-99)
[2019-07-05] MEDS: IPRATROPIUM-ALBUTEROL 3 ML NEB INHALATION SCH ×4 (07:09→19:08)
[2019-07-05] MEDS: FORMOTEROL FUMARATE 20 MCG/2 ML NEBU INHALATION SCH ×2 (07:09→19:08)
[2019-07-05] MEDS: BUDESONIDE 1 MG/2 ML NEBU INHALATION SCH ×2 (07:09→19:08)
[2019-07-05] MEDS: INSULIN ASPART (NovoLOG) 100 UNIT/ML VIAL SQ SCH ×7 (07:18→22:10)
[2019-07-05] MEDS: predniSONE 20 MG TAB PO SCH (08:15)
[2019-07-05] MEDS: DILTIAZEM CD 180 MG CAP.ER.24H PO SCH (08:15)
[2019-07-05] MEDS: INSULIN DETEMIR (LEVEMIR) 100 UNIT/ML SYR SQ SCH ×2 (08:15→22:11)
[2019-07-05] MEDS: POTASSIUM CHLORIDE ER 20 MEQ TAB.ER PO SCH ×2 (08:15→22:09)
[2019-07-05] MEDS: LOSARTAN 50 MG TAB PO SCH (08:15)
[2019-07-05] MEDS: FUROSEMIDE 40 MG TAB PO SCH (08:16)
[2019-07-05] MEDS: FAMOTIDINE 20 MG TAB PO SCH (08:16)
[2019-07-05] MEDS: CITALOPRAM HYDROBROMIDE 20 MG TAB PO SCH (08:16)
[2019-07-05] MEDS: LIPITOR 10MG PO SCH (08:16)
[2019-07-05] MEDS: MEROPENEM 1 GM in SODIUM CHLORIDE 0.9% 100 ML IVPB SCH ×2 (08:16→22:11)
[2019-07-05 09:18] LABS: Prothrombin Time 19.1 sec (9.0-12.0)
--- NOTE | 2019-07-05 10:00 | P.PN ---
Subjective Progress Note Date: 07/04/19 Principal diagnosis: Acute on chronic hypoxic respiratory failure due to COPD exacerbation Ms. Lloyd is a 73-year-old female with a past medical history of atrial fibrillation, asthma, heart failure, COPD, diabetes mellitus, GERD, hypertension, thyroid disorder, renal disease coming into the hospital with a chief complaint of difficulty in breathing which has been going on for couple of days. Patient was prescribed antibiotics as outpatient but did not respond and so admitted to the hospital for further management. Depending on her prior sensitivities patient has been started on meropenem and pulmonary is following the patient closely. On 06/30/2019 -patient is lying in the bed appears to be no acute distress. No acute events reported by nursing staff overnight. Patient still complaining of cough and mild difficulty in breathing. She denies having any chest pain or palpitations. No abdominal pain nausea vomiting or diarrhea. No dysuria or hematuria. On reviewing the patient's vitals she is saturating at 99% on 3 L of nasal cannula. Temperature 97.7, heart rate 82 and respiratory rate 18 with blood pressure 1 65-70. On reviewing the patient's labs hemoglobin stable around 9. INR at 2.3 and rest of the labs within normal limits. On 07/01/2019 - patient is sitting up in a chair by the bedside appears to be no acute distress. Patient notes that her cough and difficulty in breathing is much better. On review systems patient denies having any fever chills or rigors. No chest pain or palpitations. No bowel pain nausea vomiting or diarrhea. No dysuria or hematuria. Sputum cultures pending and blood cultures no growth. On reviewing her weight is patient is saturating in the high 90s on 2 L of nasal cannula. Overnight afebrile. In reviewing the patient's labs her hemoglobin has been stable around 9.3, creatinine stable at 0.96 and white count of 8.7. Her blood sugars have been labile. On 07/02/2019 -patient is sitting up in a chair by the bedside and having her lunch. She states that she is still having cough but had difficulty in breathing has improved. Patient denies having any fevers, chills or rigors. No chest pain or palpitations. No abdominal pain nausea vomiting or diarrhea. No dysuria or hematuria. Patient is saturating in 100% on 2 L of nasal cannula. T-max over the past 24 hours is 98.1. Sputum cultures are positive for gram- negative bacilli. Blood cultures no growth. Her blood sugars have been under much better control. INR of 2.1. on 07/03/2019 -NO acute events reported by staff overnight. She is currently sitting up in a chair at the bedside. She mentions that her breathing is getting better gradually. She is maintaining O2 saturations in the 90s on room air, which are better compared to yesterdday. Tmax in the past 24 hrs - 98.6, afebrile. Sputum cultures positive for gram-negative bacilli pending speciation. On coumadin for anti coagulation, INR 2.1. 07/04/2019 patient currently sitting in the chair comfortably. Breathing status is improving. continues on meropenem, breathing treatments, and steroids. Sputum culture still shows gram-negative bacilli, awaiting final organism identification. No fever or chills. Pulmonary is on board. Active Medications Albuterol/Ipratropium (Duoneb 0.5 Mg-3 Mg/3 Ml Soln) 3 ml INHALATION RT-QID [facility] Last Admin: 07/03/19 19:19 Dose: 3 ml Documented by: Alprazolam (Xanax) 0.5 mg PO TID PRN PRN Reason: Anxiety Last Admin: 07/03/19 20:40 Dose: 0.5 mg Documented by: Atorvastatin Calcium (Lipitor) 10 mg PO DAILY [facility] Last Admin: 07/03/19 07:53 Dose: 10 mg Documented by: Budesonide (Pulmicort) 1 mg INHALATION RT-BID [facility] Last Admin: 07/03/19 19:19 Dose: 1 mg Documented by: Citalopram Hydrobromide (Celexa) 40 mg PO DAILY [facility] Last Admin: 07/03/19 07:54 Dose: 40 mg Documented by: Diltiazem HCl (Cardizem Cd) 180 mg PO DAILY [facility] Last Admin: 07/03/19 07:54 Dose: 180 mg Documented by: Famotidine (Pepcid) 20 mg PO DAILY [facility] Last Admin: 07/03/19 07:54 Dose: 20 mg Documented by: Formoterol Fumarate (Perforomist) 20 mcg INHALATION RT-BID [facility] Last Admin: 07/03/19 19:19 Dose: 20 mcg Documented by: Furosemide (Lasix) 40 mg PO DAILY [facility] Last Admin: 07/03/19 07:54 Dose: 40 mg Documented by: Guaifenesin/Dextromethorphan (Robitussin Dm) 10 ml PO Q6H PRN PRN Reason: Cough Last Admin: 06/30/19 20:11 Dose: 10 ml Documented by: Sodium Chloride (Saline 0.9%) 1,000 mls @ 20 mls/hr IV .Q24H [facility] Last Admin: 07/03/19 20:40 Dose: 20 mls/hr Documented by: Meropenem 1 gm/ Sodium (Chloride) 100 mls @ 200 mls/hr IVPB Q12HR [facility]; Protocol Last Admin: 07/03/19 20:41 Dose: 200 mls/hr Documented by: Insulin Aspart (Novolog) 0 unit SQ ACHS [facility]; Protocol Last Admin: 07/03/19 21:03 Dose: 4 unit Documented by: Insulin Aspart (Novolog) 5 unit SQ AC-TID [facility] Last Admin: 07/03/19 17:50 Dose: 5 unit Documented by: Insulin Detemir (Levemir) 30 unit SQ DAILY@0700 [facility] Last Admin: 07/03/19 07:53 Dose: 30 unit Documented by: Insulin Detemir (Levemir) 30 unit SQ [facility] Last Admin: 07/03/19 21:03 Dose: 30 unit Documented by: Losartan Potassium (Cozaar) 50 mg PO DAILY [facility] Last Admin: 07/03/19 07:53 Dose: 50 mg Documented by: Miscellaneous Information (Coumadin Per Pharmacy) 0 each MISCELLANE DIRECTED PRN PRN Reason: Per Protocol Montelukast Sodium (Singulair) 10 mg PO [facility] Last Admin: 07/03/19 20:40 Dose: 10 mg Documented by: Patient's Own Med ( Alendronate Sodium [ Fosamax] 70 Mg) 70 mg PO FR [facility] Last Admin: 06/29/19 07:58 Dose: Not Given Documented by: Potassium Chloride (K-Dur 20) 20 meq PO BID [facility] Last Admin: 07/03/19 20:40 Dose: 20 meq Documented by: Prednisone () 40 mg PO DAILY [facility] Last Admin: 07/03/19 07:55 Dose: 40 mg Documented by: Tramadol HCl (Ultram) 50 mg PO TID PRN PRN Reason: Pain Last Admin: 06/29/19 21:50 Dose: 50 mg Documented by: Warfarin Sodium (Coumadin) 5 mg PO HS@1800 [facility]; Protocol Last Admin: 07/03/19 17:50 Dose: 5 mg Documented by: Objective - Vital Signs Vital signs: Vital Signs Temp 97.6 F 07/04/19 19:05 Pulse 78 07/04/19 20:16 Resp 22 07/04/19 19:05 BP 157/72 07/04/19 19:05 Pulse Ox 99 07/04/19 19:05 Intake & Output 07/04/19 07/04/19 07/05/19 06:59 18:59 06:59 Intake Total 260 260 Balance 260 260 Intake: IV 100 100 Meropenem 1 gm In Sodium 100 100 Chloride 0.9% 100 ml @ 200 mls/hr IVPB Q12HR [facility] Rx#:[id number] Intake, IV Titration 160 160 Amount Sodium Chloride 0.9% 1, 160 160 000 ml @ 20 mls/hr IV . Q24H [facility] Rx#:[id number] Other: # Voids 2 - Exam PHYSICAL EXAM GENERAL: The patient is alert and oriented x3, not in any acute distress. HEENT: no pallor, no icterus, no JVD, no Thyromegaly. CARDIOVASCULAR: S1 and S2 present. No murmurs, rubs, or gallops. PULMONARY: Diffuse bilateral rhonchi. No wheezing or crackles. ABDOMEN: Soft, nontender, nondistended, normoactive bowel sounds. No palpable organomegaly. MUSCULOSKELETAL: No joint swelling or deformity. EXTREMITIES: No cyanosis, clubbing, or pedal edema. NEUROLOGICAL: Gross neurological examination did not reveal any focal deficits. - Labs CBC & Chem 7: 07/01/19 08:06 07/01/19 08:06 Labs: Abnormal Lab Results - Last 24 Hours (Table) 07/04/19 07/04/19 07/04/19 Range/Units 06:50 06:53 07:22 PT 18.7 H (9.0-12.0) sec INR 1.9 H (<1.2) POC Glucose (mg/dL) 46 L 163 H (75-99) mg/dL 07/04/19 07/04/19 07/04/19 Range/Units 11:58 16:39 20:20 PT (9.0-12.0) sec INR (<1.2) POC Glucose (mg/dL) 190 H 267 H 389 H (75-99) mg/dL Microbiology - Last 24 Hours (Table) 06/28/19 18:53 Blood Culture - Final Blood No Growth after 144 hours Assessment and Plan Assessment: ASSESSMENT Acute on chronic hypoxic respiratory failure due to COPD exacerbation COPD exacerbation due to purulent tracheobronchitis History of Pseudomonas in sputum cultures Chronic bronchial asthma Atrial fibrillation on anticoagulation with warfarin Type 2 diabetes mellitus Hypertension Hypothyroidism Hard of hearing GERD PLAN: Patient will be continued on meropenem as her previous cultures which are showing Pseudomonas until finalization of sputum cultures. Current sputum cultures showing gram-negative bacilli and blood cultures have been negative. Patient to be continued on anticoagulation with Coumadin. INR at 2.1 today. Continue with breathing treatments and prednisone. Blood sugars WNL. Further recommendations based on the clinical course. Time with Patient: Greater than 30
[2019-07-05 11:47] LABS: Glucose,Whole Blood 120 mg/dL (75-99)
--- NOTE | 2019-07-05 12:40 | P.PN ---
Subjective Progress Note Date: 07/05/19 Principal diagnosis: Acute exacerbation of chronic obstructive pulmonary disease The patient is seen today 06/30/2019 in follow-up on the regular medical floor. She is currently awake and alert in no acute distress. Still complaining of cough and congestion. Still dyspneic with exertion. He is maintaining good O2 saturations in the upper 90s on 3 L/m per nasal cannula. She's afebrile. Blood culture reveals no growth to date. Sputum culture pending. White count 8.2. Hemoglobin 9.1. INR 2.3. Creatinine 0.98. She remains on bronchodilators, steroids, meropenem. The patient is seen today 07/01/2019 and follow-up on the regular medical floor. She is currently sitting up in bed. Awake and alert in no acute distress. Breathing a bit easier today compared to yesterday. Stating still not back to her baseline. She is maintaining good O2 saturations in the upper 90s on 2 L/m per nasal cannula. She's been afebrile. Blood cultures reveal no growth. Sputum culture pending. White count 8.7. Hemoglobin 9.3. INR 2.3. Creatinine 0.96. She remains on DuoNeb inhalations, Pulmicort and Perforomist inhalations, prednisone. Antibiotics in the form of meropenem. Anticoagulated with warfarin. The patient is seen today 07/02/2019 in follow-up on the regular medical floor. She is awake and alert in no acute distress. She is breathing easier today compared to yesterday. Still with some end expiratory wheeze. Loose congested cough. Sputum culture revealing gram-negative bacilli, ID pending. Blood culture reveals no growth. INR 2.1. Glucose 134. She remains on antibiotics in the form of meropenem. Continued on bronchodilators, steroids and ant icoagulation. The patient is seen today 07/03/2019 in follow-up on the regular medical floor. She is currently sitting up in a chair at the bedside. Awake and alert in no acute distress. She is maintaining O2 saturations in the 90s on room air. She's been afebrile. Sputum cultures positive for gram-negative bacilli. Blood culture reveals no growth. INR 2.1. Blood glucose 98. She remains on meropenem, bronchodilators and steroids. On 07/04/2019 patient is seen in follow-up on general medical floor, still quite bronchospastic on today's exam, but seems to be less congested, continues on meropenem, breathing treatments, and steroids. Sputum culture still shows gram- negative bacilli, awaiting final organism identification. No fever or chills. On 07/05/2019 patient seen in follow-up on general medical floor, she sits up in the recliner, she is in no acute distress, she is on 2 L of oxygen with a pulse ox of 100%. Lung sounds are improved on today's exam, patient still has some expiratory wheezing, but much less congested, dyspnea has improved. Remains on meropenem for empiric antibiotic coverage, her sputum culture is still pending, we spoke to the microbiology lab to check on the status of her final sputum culture results and apparently the [place] lab is processing all of the microbiology cultures, and the lab personnel will inquire with the [place] lab regarding the results, patient so far received 6 days of meropenem, she will receive 1 more day of IV meropenem. Otherwise no acute events overnight, patient is on oral steroids now, cough syrup, and nebulized bronchodilators Objective - Vital Signs Vital signs: Vital Signs Temp 97.1 F L 07/05/19 07:24 Pulse 84 07/05/19 11:16 Resp 16 07/05/19 07:24 BP 160/76 07/05/19 07:24 Pulse Ox 100 07/05/19 07:24 Intake & Output 07/04/19 07/05/19 07/05/19 18:59 06:59 18:59 Intake Total 260 200 Balance 260 200 Intake: IV 100 Meropenem 1 gm In Sodium 100 Chloride 0.9% 100 ml @ 200 mls/hr IVPB Q12HR [facility] Rx#:[id number] Intake, IV Titration 160 Amount Sodium Chloride 0.9% 1, 160 000 ml @ 20 mls/hr IV . Q24H [facility] Rx#:[id number] Oral 200 Other: Voiding Method Toilet # Voids 2 2 1 - Exam GENERAL EXAM: Alert, very pleasant, 73-year-old white female, on 2 L of oxygen with a pulse of 100% comfortable in no apparent distress. HEAD: Normocephalic/atraumatic. EYES: Normal reaction of pupils, equal size. Conjunctiva pink, sclera white. NOSE: Clear with pink turbinates. THROAT: No erythema or exudates. NECK: No masses, no JVD, no thyroid enlargement, no adenopathy. CHEST: No chest wall deformity. Symmetrical expansion. LUNGS: Equal air entry with diffuse wheezes, improved on today's exam CVS: Regular rate and rhythm, normal S1 and S2, no gallops, no murmurs, no rubs ABDOMEN: Soft, nontender. No hepatosplenomegaly, normal bowel sounds, no guarding or rigidity. EXTREMITIES: No clubbing, no edema, no cyanosis, 2+ pulses and upper and lower extremities. MUSCULOSKELETAL: Muscle strength and tone normal. SPINE: No scoliosis or deformity SKIN: No rashes CENTRAL NERVOUS SYSTEM: Alert and oriented -3. No focal deficits, tone is normal in all 4 extremities. PSYCHIATRIC: Alert and oriented -3. Appropriate affect. Intact judgment and insight. - Labs CBC & Chem 7: 07/01/19 08:06 07/01/19 08:06 Labs: Abnormal Lab Results - Last 24 Hours (Table) 07/04/19 07/04/19 07/05/19 Range/Units 16:39 20:20 08:30 PT 19.1 H (9.0-12.0) sec INR 2.0 H (<1.2) POC Glucose (mg/dL) 267 H 389 H (75-99) mg/dL 07/05/19 Range/Units 11:45 PT (9.0-12.0) sec INR (<1.2) POC Glucose (mg/dL) 120 H (75-99) mg/dL Microbiology - Last 24 Hours (Table) 06/30/19 06:01 Gram Stain - Final Sputum Sputum Culture - Final Pseudomonas aeruginosa 06/28/19 18:53 Blood Culture - Final Blood No Growth after 144 hours Assessment and Plan Plan: Assessment: Acute exacerbation of chronic obstructive pulmonary disease, complicated by purulent tracheobronchitis. Sputum culture revealing gram-negative bacilli. Currently on meropenem. Chronic hypoxic respiratory failure secondary to above History of colonization of pseudomonas aeruginosa History of chronic bronchial asthma, moderate persistent History of atrial fibrillation anticoagulated with warfarin History of congestive heart failure Diabetes mellitus. GERD Hearing disorder Hypertension Hypothyroidism Plan: Continue with IV meropenem, we inquired with the microbiology lab was supposed to get back with us regarding the results of the sputum culture, as the older microbiology cultures are sent to the [place] lab. Continue with oral prednisone and bronchodilators, get the results of the final sputum cultures tomorrow along with sensitivities we'll switch the patient to oral antibiotics and will consider discharge home I performed a history & physical examination of the patient and discussed their management with my nurse practitioner, Maryjo Parisi. I reviewed the nurse practitioner's note and agree with the documented findings and plan of care. Lung sounds are positive for diffuse wheezes throughout the lung carrera. The findings and the impression was discussed with the patient. I attest to the documentation by the nurse practitioner. Time with Patient: Less than 30
--- NOTE | 2019-07-05 16:20 | CDI ---
Documentation Clarification Form Date: 07/05/2019 03:39:35 PM From: Tamika Llanos RN, CCDS Phone: Admit Date: 06/30/2019 12:34:00 PM Patient Name: Xi Lloyd Visit Number: [id number] Discharge Date: ATTENTION: The Clinical Documentation Specialists (CDI) and [facility] Coding Staff appreciate your assistance in clarifying documentation. Please respond to the clarification below the line at the bottom and electronically sign. The CDI & [facility] Coding staff will review the response and follow-up if needed. Please note: Queries are made part of the Legal Health Record. If you have any questions, please contact the author of this message via ITS. Dr. Meme Mendiola The patient presented on 06/27 with complaints of increasing shortness of breath. Purulent tracheobronchitis is in consult and ongoing progress notes. Acuity of tracheobronchitis is requested. History/Risk Factors: Copd, Asthma, Congestive heart failure, Diabetes Mellitus, Hypertension, Pseudomonas aeruginosa colonization, pneumonia, Chronic hypoxemic respiratory failure Clinical Indicators: 73-year-old female with complaints of increasing shortness of breath\ 06/27 lung: reveal coarse inspiratory and expiratory rhonchi and wheezes. She has a very wet congested cough. Her COVI-19 nasal pharyngeal swab test was negative 06/27 Lab findings: WBC 7.7 Anion gap 6, 06/28 Sputum Final culture: Pseudomonas aeruginosa 06/27 chest x-ray: Rim-like opacity at the left lung base is new and is favored to relate to atelectasis versus developing pneumonia. 06/27 Vital Signs: 173/61 82 20 97.9 98 % 2/L NC Treatment: Albuterol Duonebs 3 ml inhalation qid Pulmicort 1mg inhalation bid Meropenem 1 gm iv q 12 Prednisone 40mg po daily In your professional opinion, can you please clarify the acuity of the tracheobronchitis? Acute Tracheobronchitis (with bronchospasm or obstruction Chronic Tracheobronchitis (mucopurulent, simple (mixed) other Other, please specify Unable to determine (Last Revision: May 2017) Acute Tracheobronchitis (with bronchospasm or obstruction) secondary to gram- negative infection, pseudomonas aeruginosa [facility]
[2019-07-05 16:51] LABS: Glucose,Whole Blood 183 mg/dL (75-99)
[2019-07-05] MEDS: WARFARIN 5 MG TAB PO SCH (17:40)
[2019-07-05] MEDS: SODIUM CHLORIDE 0.9% 1,000 ML IV SCH (17:41)
[2019-07-05 20:41] LABS: Glucose,Whole Blood 190 mg/dL (75-99)
[2019-07-05] MEDS: MONTELUKAST 10 MG TAB PO SCH (22:10)
--- NOTE | 2019-07-06 00:31 | P.PN ---
Subjective Progress Note Date: 07/05/19 Principal diagnosis: Acute on chronic hypoxic respiratory failure due to COPD exacerbation Ms. Lloyd is a 73-year-old female with a past medical history of atrial fibrillation, asthma, heart failure, COPD, diabetes mellitus, GERD, hypertension, thyroid disorder, renal disease coming into the hospital with a chief complaint of difficulty in breathing which has been going on for couple of days. Patient was prescribed antibiotics as outpatient but did not respond and so admitted to the hospital for further management. Depending on her prior sensitivities patient has been started on meropenem and pulmonary is following the patient closely. On 06/30/2019 -patient is lying in the bed appears to be no acute distress. No acute events reported by nursing staff overnight. Patient still complaining of cough and mild difficulty in breathing. She denies having any chest pain or palpitations. No abdominal pain nausea vomiting or diarrhea. No dysuria or hematuria. On reviewing the patient's vitals she is saturating at 99% on 3 L of nasal cannula. Temperature 97.7, heart rate 82 and respiratory rate 18 with blood pressure 1 65-70. On reviewing the patient's labs hemoglobin stable around 9. INR at 2.3 and rest of the labs within normal limits. On 07/01/2019 - patient is sitting up in a chair by the bedside appears to be no acute distress. Patient notes that her cough and difficulty in breathing is much better. On review systems patient denies having any fever chills or rigors. No chest pain or palpitations. No bowel pain nausea vomiting or diarrhea. No dysuria or hematuria. Sputum cultures pending and blood cultures no growth. On reviewing her weight is patient is saturating in the high 90s on 2 L of nasal cannula. Overnight afebrile. In reviewing the patient's labs her hemoglobin has been stable around 9.3, creatinine stable at 0.96 and white count of 8.7. Her blood sugars have been labile. On 07/02/2019 -patient is sitting up in a chair by the bedside and having her lunch. She states that she is still having cough but had difficulty in breathing has improved. Patient denies having any fevers, chills or rigors. No chest pain or palpitations. No abdominal pain nausea vomiting or diarrhea. No dysuria or hematuria. Patient is saturating in 100% on 2 L of nasal cannula. T-max over the past 24 hours is 98.1. Sputum cultures are positive for gram- negative bacilli. Blood cultures no growth. Her blood sugars have been under much better control. INR of 2.1. on 07/03/2019 -NO acute events reported by staff overnight. She is currently sitting up in a chair at the bedside. She mentions that her breathing is getting better gradually. She is maintaining O2 saturations in the 90s on room air, which are better compared to yesterdday. Tmax in the past 24 hrs - 98.6, afebrile. Sputum cultures positive for gram-negative bacilli pending speciation. On coumadin for anti coagulation, INR 2.1. 07/04/2019 patient currently sitting in the chair comfortably. Breathing status is improving. continues on meropenem, breathing treatments, and steroids. Sputum culture still shows gram-negative bacilli, awaiting final organism identification. No fever or chills. Pulmonary is on board. 07/05/2019 Patient is currently sitting in a chair comfortably. Currently oxygen to at 2 L via nasal cannula. Currently being continued on meropenem. Sputum cultures showed gram-negative bacilli not finalized yet. Patient is currently day 6 out of 7 of IV meropenem. Patient has been afebrile. Able to ambulate in room. No complaints of chest pain. Tolerating oral diet. No headache or dizziness or lightheadedness. Pulmonary is on board. Anticipate discharge in the next 24 hours. Active Medications Albuterol/Ipratropium (Duoneb 0.5 Mg-3 Mg/3 Ml Soln) 3 ml INHALATION RT-QID [facility] Last Admin: 07/03/19 19:19 Dose: 3 ml Documented by: Alprazolam (Xanax) 0.5 mg PO TID PRN PRN Reason: Anxiety Last Admin: 07/03/19 20:40 Dose: 0.5 mg Documented by: Atorvastatin Calcium (Lipitor) 10 mg PO DAILY [facility] Last Admin: 07/03/19 07:53 Dose: 10 mg Documented by: Budesonide (Pulmicort) 1 mg INHALATION RT-BID [facility] Last Admin: 07/03/19 19:19 Dose: 1 mg Documented by: Citalopram Hydrobromide (Celexa) 40 mg PO DAILY [facility] Last Admin: 07/03/19 07:54 Dose: 40 mg Documented by: Diltiazem HCl (Cardizem Cd) 180 mg PO DAILY [facility] Last Admin: 07/03/19 07:54 Dose: 180 mg Documented by: Famotidine (Pepcid) 20 mg PO DAILY [facility] Last Admin: 07/03/19 07:54 Dose: 20 mg Documented by: Formoterol Fumarate (Perforomist) 20 mcg INHALATION RT-BID [facility] Last Admin: 07/03/19 19:19 Dose: 20 mcg Documented by: Furosemide (Lasix) 40 mg PO DAILY [facility] Last Admin: 07/03/19 07:54 Dose: 40 mg Documented by: Guaifenesin/Dextromethorphan (Robitussin Dm) 10 ml PO Q6H PRN PRN Reason: Cough Last Admin: 06/30/19 20:11 Dose: 10 ml Documented by: Sodium Chloride (Saline 0.9%) 1,000 mls @ 20 mls/hr IV .Q24H [facility] Last Admin: 07/03/19 20:40 Dose: 20 mls/hr Documented by: Meropenem 1 gm/ Sodium (Chloride) 100 mls @ 200 mls/hr IVPB Q12HR [facility]; Protocol Last Admin: 07/03/19 20:41 Dose: 200 mls/hr Documented by: Insulin Aspart (Novolog) 0 unit SQ ACHS [facility]; Protocol Last Admin: 07/03/19 21:03 Dose: 4 unit Documented by: Insulin Aspart (Novolog) 5 unit SQ AC-TID [facility] Last Admin: 07/03/19 17:50 Dose: 5 unit Documented by: Insulin Detemir (Levemir) 30 unit SQ DAILY@0700 [facility] Last Admin: 07/03/19 07:53 Dose: 30 unit Documented by: Insulin Detemir (Levemir) 30 unit SQ [facility] Last Admin: 07/03/19 21:03 Dose: 30 unit Documented by: Losartan Potassium (Cozaar) 50 mg PO DAILY [facility] Last Admin: 07/03/19 07:53 Dose: 50 mg Documented by: Miscellaneous Information (Coumadin Per Pharmacy) 0 each MISCELLANE DIRECTED PRN PRN Reason: Per Protocol Montelukast Sodium (Singulair) 10 mg PO [facility] Last Admin: 07/03/19 20:40 Dose: 10 mg Documented by: Patient's Own Med ( Alendronate Sodium [ Fosamax] 70 Mg) 70 mg PO FR [facility] Last Admin: 06/29/19 07:58 Dose: Not Given Documented by: Potassium Chloride (K-Dur 20) 20 meq PO BID [facility] Last Admin: 07/03/19 20:40 Dose: 20 meq Documented by: Prednisone () 40 mg PO DAILY [facility] Last Admin: 07/03/19 07:55 Dose: 40 mg Documented by: Tramadol HCl (Ultram) 50 mg PO TID PRN PRN Reason: Pain Last Admin: 06/29/19 21:50 Dose: 50 mg Documented by: Warfarin Sodium (Coumadin) 5 mg PO HS@1800 [facility]; Protocol Last Admin: 07/03/19 17:50 Dose: 5 mg Documented by: Objective - Vital Signs Vital signs: Vital Signs Temp 98.2 F 07/05/19 14:30 Pulse 82 07/05/19 15:42 Resp 18 07/05/19 14:30 BP 155/83 07/05/19 14:30 Pulse Ox 98 07/05/19 15:30 Intake & Output 07/04/19 07/05/19 07/05/19 18:59 06:59 18:59 Intake Total 260 1057 Balance 260 1057 Intake: IV 100 Meropenem 1 gm In Sodium 100 Chloride 0.9% 100 ml @ 200 mls/hr IVPB Q12HR [facility] Rx#:[id number] Intake, IV Titration 160 180 Amount Meropenem 1 gm In Sodium 100 Chloride 0.9% 100 ml @ 200 mls/hr IVPB Q12HR [facility] Rx#:[id number] Sodium Chloride 0.9% 1, 160 80 000 ml @ 20 mls/hr IV . Q24H [facility] Rx#:[id number] Oral 877 Other: Voiding Method Toilet # Voids 2 2 1 - Exam PHYSICAL EXAM GENERAL: The patient is alert and oriented x3, not in any acute distress. HEENT: no pallor, no icterus, no JVD, no Thyromegaly. CARDIOVASCULAR: S1 and S2 present. No murmurs, rubs, or gallops. PULMONARY: Mild expiratory wheeze and scattered rhonchi. No crackles. ABDOMEN: Soft, nontender, nondistended, normoactive bowel sounds. No palpable organomegaly. MUSCULOSKELETAL: No joint swelling or deformity. EXTREMITIES: No cyanosis, clubbing, or pedal edema. NEUROLOGICAL: Gross neurological examination did not reveal any focal deficits. - Labs CBC & Chem 7: 07/01/19 08:06 07/01/19 08:06 Labs: Abnormal Lab Results - Last 24 Hours (Table) 07/04/19 07/04/19 07/05/19 Range/Units 16:39 20:20 08:30 PT 19.1 H (9.0-12.0) sec INR 2.0 H (<1.2) POC Glucose (mg/dL) 267 H 389 H (75-99) mg/dL 07/05/19 Range/Units 11:45 PT (9.0-12.0) sec INR (<1.2) POC Glucose (mg/dL) 120 H (75-99) mg/dL Microbiology - Last 24 Hours (Table) 06/30/19 06:01 Gram Stain - Final Sputum Sputum Culture - Final Pseudomonas aeruginosa 06/28/19 18:53 Blood Culture - Final Blood No Growth after 144 hours Assessment and Plan Assessment: ASSESSMENT Acute on chronic hypoxic respiratory failure due to COPD exacerbation COPD exacerbation due to purulent tracheobronchitis History of Pseudomonas in sputum cultures Chronic bronchial asthma Atrial fibrillation on anticoagulation with warfarin Type 2 diabetes mellitus Hypertension Hypothyroidism Hard of hearing GERD PLAN: Patient will be continued on meropenem as her previous cultures which are showing Pseudomonas until finalization of sputum cultures. Current sputum cultures showing gram-negative bacilli and blood cultures have been negative. Patient to be continued on anticoagulation with Coumadin. INR at 2.1 today. Continue with breathing treatments and prednisone. Blood sugars WNL. Further recommendations based on the clinical course.
[2019-07-06 06:18] LABS: Glucose,Whole Blood 52 mg/dL (75-99)
[2019-07-06 06:30] LABS: Glucose,Whole Blood 85 mg/dL (75-99)
[2019-07-06 06:59] LABS: Glucose,Whole Blood 92 mg/dL (75-99)
[2019-07-06] MEDS: PATIENT'S OWN MED (Alendronate Sodium [Fosamax] 70 MG) PO SCH (07:58)
[2019-07-06] MEDS: INSULIN ASPART (NovoLOG) 100 UNIT/ML VIAL SQ SCH ×6 (07:58→17:35)
[2019-07-06] MEDS: INSULIN DETEMIR (LEVEMIR) 100 UNIT/ML SYR SQ SCH (08:04)
[2019-07-06 08:34] VITALS: RESP 19; TEMP 97.7
[2019-07-06] MEDS: IPRATROPIUM-ALBUTEROL 3 ML NEB INHALATION SCH ×3 (08:38→16:07)
[2019-07-06] MEDS: BUDESONIDE 1 MG/2 ML NEBU INHALATION SCH (08:38)
[2019-07-06] MEDS: FORMOTEROL FUMARATE 20 MCG/2 ML NEBU INHALATION SCH (08:38)
[2019-07-06] MEDS: predniSONE 20 MG TAB PO SCH (08:51)
[2019-07-06] MEDS: POTASSIUM CHLORIDE ER 20 MEQ TAB.ER PO SCH (08:51)
[2019-07-06] MEDS: FUROSEMIDE 40 MG TAB PO SCH (08:51)
[2019-07-06] MEDS: DILTIAZEM CD 180 MG CAP.ER.24H PO SCH (08:51)
[2019-07-06] MEDS: FAMOTIDINE 20 MG TAB PO SCH (08:52)
[2019-07-06] MEDS: CITALOPRAM HYDROBROMIDE 20 MG TAB PO SCH (08:52)
[2019-07-06] MEDS: LIPITOR 10MG PO SCH (08:52)
[2019-07-06] MEDS: LOSARTAN 50 MG TAB PO SCH (08:52)
[2019-07-06] MEDS: MEROPENEM 1 GM in SODIUM CHLORIDE 0.9% 100 ML IVPB SCH (09:25)
[2019-07-06 09:39] LABS: Prothrombin Time 19.5 sec (9.0-12.0)
--- NOTE | 2019-07-06 11:46 | P.PN ---
Subjective Progress Note Date: 07/06/19 Principal diagnosis: Acute exacerbation of chronic obstructive pulmonary disease The patient is seen today 06/30/2019 in follow-up on the regular medical floor. She is currently awake and alert in no acute distress. Still complaining of cough and congestion. Still dyspneic with exertion. He is maintaining good O2 saturations in the upper 90s on 3 L/m per nasal cannula. She's afebrile. Blood culture reveals no growth to date. Sputum culture pending. White count 8.2. Hemoglobin 9.1. INR 2.3. Creatinine 0.98. She remains on bronchodilators, steroids, meropenem. The patient is seen today 07/01/2019 and follow-up on the regular medical floor. She is currently sitting up in bed. Awake and alert in no acute distress. Breathing a bit easier today compared to yesterday. Stating still not back to her baseline. She is maintaining good O2 saturations in the upper 90s on 2 L/m per nasal cannula. She's been afebrile. Blood cultures reveal no growth. Sputum culture pending. White count 8.7. Hemoglobin 9.3. INR 2.3. Creatinine 0.96. She remains on DuoNeb inhalations, Pulmicort and Perforomist inhalations, prednisone. Antibiotics in the form of meropenem. Anticoagulated with warfarin. The patient is seen today 07/02/2019 in follow-up on the regular medical floor. She is awake and alert in no acute distress. She is breathing easier today compared to yesterday. Still with some end expiratory wheeze. Loose congested cough. Sputum culture revealing gram-negative bacilli, ID pending. Blood culture reveals no growth. INR 2.1. Glucose 134. She remains on antibiotics in the form of meropenem. Continued on bronchodilators, steroids and ant icoagulation. The patient is seen today 07/03/2019 in follow-up on the regular medical floor. She is currently sitting up in a chair at the bedside. Awake and alert in no acute distress. She is maintaining O2 saturations in the 90s on room air. She's been afebrile. Sputum cultures positive for gram-negative bacilli. Blood culture reveals no growth. INR 2.1. Blood glucose 98. She remains on meropenem, bronchodilators and steroids. On 07/04/2019 patient is seen in follow-up on general medical floor, still quite bronchospastic on today's exam, but seems to be less congested, continues on meropenem, breathing treatments, and steroids. Sputum culture still shows gram- negative bacilli, awaiting final organism identification. No fever or chills. On 07/05/2019 patient seen in follow-up on general medical floor, she sits up in the recliner, she is in no acute distress, she is on 2 L of oxygen with a pulse ox of 100%. Lung sounds are improved on today's exam, patient still has some expiratory wheezing, but much less congested, dyspnea has improved. Remains on meropenem for empiric antibiotic coverage, her sputum culture is still pending, we spoke to the microbiology lab to check on the status of her final sputum culture results and apparently the [facility] is processing all of the microbiology cultures, and the lab personnel will inquire with the [facility] regarding the results, patient so far received 6 days of meropenem, she will receive 1 more day of IV meropenem. Otherwise no acute events overnight, patient is on oral steroids now, cough syrup, and nebulized bronchodilators. The patient is seen today 07/06/2019 in follow-up on the regular medical floor. She is currently sitting up at the bedside. Awake and alert in no acute distress. She denies any worsening shortness of breath, cough or congestion. She is maintaining O2 saturations in the 90s on room air. She's been afebrile. Hemodynamically stable. Sputum cultures positive for pseudomonas. She is currently on meropenem. She is continued on bronchodilators and steroids. INR 2.0. Objective - Vital Signs Vital signs: Vital Signs Temp 97.7 F 07/06/19 07:00 Pulse 84 07/06/19 11:36 Resp 19 07/06/19 07:00 BP 153/80 07/06/19 07:00 Pulse Ox 99 07/06/19 07:00 Intake & Output 07/05/19 07/06/19 07/06/19 18:59 06:59 18:59 Intake Total 1057 Balance 1057 Intake: Intake, IV Titration 180 Amount Meropenem 1 gm In Sodium 100 Chloride 0.9% 100 ml @ 200 mls/hr IVPB Q12HR [facility] Rx#:[id number] Sodium Chloride 0.9% 1, 80 000 ml @ 20 mls/hr IV . Q24H [facility] Rx#:[id number] Oral 877 Other: Voiding Method Toilet Toilet # Voids 1 1 2 # Bowel Movements 1 - Exam GENERAL EXAM: Alert, pleasant 73-year-old female patient, on room air, comfortable in no apparent distress. HEAD: Normocephalic. EYES: Normal reaction of pupils, equal size. NOSE: Clear with pink turbinates. THROAT: No erythema or exudates. NECK: No masses, no JVD. CHEST: No chest wall deformity. LUNGS: Equal air entry with bilateral end expiratory wheeze, diminished. CVS: S1 and S2 normal with no audible murmur, regular rhythm. ABDOMEN: No hepatosplenomegaly, normal bowel sounds, no guarding or rigidity. SPINE: No scoliosis or deformity SKIN: No rashes CENTRAL NERVOUS SYSTEM: No focal deficits, tone is normal in all 4 extremities. EXTREMITIES: There is no peripheral edema. No clubbing, no cyanosis. Peripheral pulses are intact. - Labs CBC & Chem 7: 07/01/19 08:06 07/01/19 08:06 Labs: Abnormal Lab Results - Last 24 Hours (Table) 07/05/19 07/05/19 07/05/19 Range/Units 11:45 16:49 20:40 PT (9.0-12.0) sec INR (<1.2) POC Glucose (mg/dL) 120 H 183 H 190 H (75-99) mg/dL 07/06/19 07/06/19 Range/Units 06:17 08:07 PT 19.5 H (9.0-12.0) sec INR 2.0 H (<1.2) POC Glucose (mg/dL) 52 L (75-99) mg/dL Microbiology - Last 24 Hours (Table) 06/30/19 06:01 Gram Stain - Final Sputum Sputum Culture - Final Pseudomonas aeruginosa Assessment and Plan Assessment: Acute exacerbation of chronic obstructive pulmonary disease, complicated by purulent tracheobronchitis with bronchospasm. Sputum culture positive for pseudomonas aeruginosa. Currently on meropenem. Chronic hypoxic respiratory failure secondary to above History of colonization of pseudomonas aeruginosa History of chronic bronchial asthma, moderate persistent History of atrial fibrillation anticoagulated with warfarin History of congestive heart failure Diabetes mellitus. GERD Hearing disorder Hypertension Hypothyroidism Plan: The patient was seen and evaluated by Dr. Mendiola Sputum culture positive for pseudomonas aeruginosa Will have a midline placed Continue meropenem 1 g every 12 hours 7 more days Home today Follow-up in our office in 1-2 weeks' time I, the cosigning physician, performed a history & physical examination of the patient. Lungs sounds with bilateral end wheeze, diminished Maintaining good O2 saturations in the 90s on room air. I discussed the assessment and plan of care with my nurse practitioner, Su Arias. I attest to the above note as dictated by her.
[2019-07-06 11:49] LABS: Glucose,Whole Blood 56 mg/dL (75-99)
[2019-07-06 12:23] LABS: Glucose,Whole Blood 110 mg/dL (75-99)
[2019-07-06 12:45] VITALS: BP 175/66
[2019-07-06 12:59] VITALS: BMI 35.6
[2019-07-06 16:10] LABS: Glucose,Whole Blood 314 mg/dL (75-99)
[2019-07-06 16:20] VITALS: PULSE 88
[2019-07-06 16:33] LABS: Glucose,Whole Blood 332 mg/dL (75-99)
[2019-07-06] MEDS: WARFARIN 5 MG TAB PO SCH (17:34)
--- NOTE | 2019-07-06 17:41 | P.DS ---
Providers Date of admission: 06/30/19 12:34 Expected date of discharge: 07/06/19 Attending physician: Patrizia Arana Consults: 06/28/19 18:12 Consult Physician Routine Consulting Provider: Meme Mendiola Consult Reason/Comments: copd exacerbation, CAP Do you want consulting provider notified?: Yes Primary care physician: Verona Mitchell [facility] Course: 73-year-old female with a past medical history of atrial fibrillation, asthma, heart failure, COPD, diabetes mellitus, GERD, hypertension, thyroid disorder, renal disease coming into the hospital with a chief complaint of difficulty in breathing which has been going on for couple of days. Patient was prescribed antibiotics as outpatient but did not respond and so admitted to the hospital for further management. Depending on her prior sensitivities patient has been started on meropenem and pulmonary is following the patient closely. On 06/30/2019 -patient is lying in the bed appears to be no acute distress. No acute events reported by nursing staff overnight. Patient still complaining of cough and mild difficulty in breathing. She denies having any chest pain or palpitations. No abdominal pain nausea vomiting or diarrhea. No dysuria or hematuria. On reviewing the patient's vitals she is saturating at 99% on 3 L of nasal cannula. Temperature 97.7, heart rate 82 and respiratory rate 18 with blood pressure 1 65-70. On reviewing the patient's labs hemoglobin stable around 9. INR at 2.3 and rest of the labs within normal limits. On 07/01/2019 - patient is sitting up in a chair by the bedside appears to be no acute distress. Patient notes that her cough and difficulty in breathing is much better. On review systems patient denies having any fever chills or rigors. No chest pain or palpitations. No bowel pain nausea vomiting or diarrhea. No dysuria or hematuria. Sputum cultures pending and blood cultures no growth. On reviewing her weight is patient is saturating in the high 90s on 2 L of nasal cannula. Overnight afebrile. In reviewing the patient's labs her hemoglobin has been stable around 9.3, creatinine stable at 0.96 and white count of 8.7. Her blood sugars have been labile. On 07/02/2019 -patient is sitting up in a chair by the bedside and having her lunch. She states that she is still having cough but had difficulty in breathing has improved. Patient denies having any fevers, chills or rigors. No chest pain or palpitations. No abdominal pain nausea vomiting or diarrhea. No dysuria or hematuria. Patient is saturating in 100% on 2 L of nasal cannula. T-max over the past 24 hours is 98.1. Sputum cultures are positive for gram- negative bacilli. Blood cultures no growth. Her blood sugars have been under much better control. INR of 2.1. on 07/03/2019 -NO acute events reported by staff overnight. She is currently sitting up in a chair at the bedside. She mentions that her breathing is getting better gradually. She is maintaining O2 saturations in the 90s on room air, which are better compared to yesterdday. Tmax in the past 24 hrs - 98.6, afebrile. Sputum cultures positive for gram-negative bacilli pending speciation. On coumadin for anti coagulation, INR 2.1. 07/04/2019 patient currently sitting in the chair comfortably. Breathing status is improving. continues on meropenem, breathing treatments, and steroids. Sputum culture still shows gram-negative bacilli, awaiting final organism identification. No fever or chills. Pulmonary is on board. 07/05/2019 Patient is currently sitting in a chair comfortably. Currently oxygen to at 2 L via nasal cannula. Currently being continued on meropenem. Sputum cultures showed gram-negative bacilli not finalized yet. Patient is currently day 6 out of 7 of IV meropenem. Patient has been afebrile. Able to ambulate in room. No complaints of chest pain. Tolerating oral diet. No headache or dizziness or lightheadedness. Pulmonary is on board. Anticipate discharge in the next 24 hours. 07/06/2019 in follow-up on the regular medical floor. She is currently sitting up at the bedside. Awake and alert in no acute distress. She denies any worsening shortness of breath, cough or congestion. She is maintaining O2 saturations in the 90s on room air. She's been afebrile. Hemodynamically stable. Sputum cultures positive for pseudomonas. She is currently on meropenem. She is continued on bronchodilators and steroids. INR 2.0. Continue meropenem 1 g every 12 hours 7 more days Patient Condition at Discharge: Fair Plan - Discharge Summary Discharge Rx Participant: Yes New Discharge Prescriptions: New Meropenem [Merrem] 1 gm IVPB Q12HR vial Continue Diltiazem HCl [Diltiazem HCl 24Hr ER] 180 mg PO DAILY Alendronate Sodium [Fosamax] 70 mg PO FR Lovastatin [Mevacor] 40 mg PO DAILY Citalopram Hydrobromide [Citalopram HBr] 40 mg PO DAILY ALPRAZolam [Xanax] 0.5 mg PO TID Furosemide [Lasix] 40 mg PO DAILY Ipratropium Nebulized [Atrovent Nebulized 0.2 MG/ML] 0.5 mg INHALATION RT-QID Levothyroxine Sodium [Synthroid] 50 mg PO DAILY Losartan [Cozaar] 50 mg PO DAILY Potassium Chloride [Klor-Con 20] 20 meq PO BID traMADol HCL 50 mg PO TID PRN PRN Reason: Pain Zafirlukast [Accolate] 20 mg PO BID Insulin Regular, Human [NovoLIN R] See Protocol SQ ACHS Albuterol Nebulized [Ventolin Nebulized] 2.5 mg INHALATION RT-QID Insulin Glargine [Lantus] 30 unit SQ DAILY Warfarin Sodium [Coumadin] 5 mg PO HS Discharge Medication List ALPRAZolam [Xanax] 0.5 mg PO TID 01/16/19 [History] Alendronate Sodium [Fosamax] 70 mg PO FR 01/16/19 [History] Citalopram Hydrobromide [Citalopram HBr] 40 mg PO DAILY 01/16/19 [History] Diltiazem HCl [Diltiazem HCl 24Hr ER] 180 mg PO DAILY 01/16/19 [History] Furosemide [Lasix] 40 mg PO DAILY 01/16/19 [History] Ipratropium Nebulized [Atrovent Nebulized 0.2 MG/ML] 0.5 mg INHALATION RT-QID 01/16/19 [History] Levothyroxine Sodium [Synthroid] 50 mg PO DAILY 01/16/19 [History] Losartan [Cozaar] 50 mg PO DAILY 01/16/19 [History] Lovastatin [Mevacor] 40 mg PO DAILY 01/16/19 [History] Potassium Chloride [Klor-Con 20] 20 meq PO BID 01/16/19 [History] Zafirlukast [Accolate] 20 mg PO BID 01/16/19 [History] traMADol HCL 50 mg PO TID PRN 01/16/19 [History] Insulin Regular, Human [NovoLIN R] See Protocol SQ ACHS 03/16/19 [History] Albuterol Nebulized [Ventolin Nebulized] 2.5 mg INHALATION RT-QID 04/26/19 [History] Insulin Glargine [Lantus] 30 unit SQ DAILY 06/28/19 [History] Warfarin Sodium [Coumadin] 5 mg PO HS 06/28/19 [History] Meropenem [Merrem] 1 gm IVPB Q12HR vial 07/06/19 [Rx] Follow up Appointment(s)/Referral(s): [facility], [NON-STAFF] - As Needed (Will call and come your home tomorrow to administer first IV antibiotic.) [facility], [REFERRING] - As Needed (Will deliver IV antibiotics to your home tomorrow between 9-10am.) Verona Medrano MD [Primary Care Provider] - 07/11/19 11:20 am (Telehealth visit. Office will call you with details. Thank you.) Meme Mendiola MD [STAFF PHYSICIAN] - 10 Days Patient Instructions/Handouts: COPD (Chronic Obstructive Pulmonary Disease) (DC), Chronic Lung Disease and Infection Prevention (DC) Discharge Disposition: HOME SELF-CARE
== END 2019-07-06 18:18 | disposition home health service (06) | DRG 190 ==
LOC: EC 15:57 → 4SSUR 18:12 → OBSVTOIN 06-30 12:34
PROVIDERS: ADMIT Internal Medicine; ATTEND Internal Medicine
PROC: 05HC33Z Insertion of Infusion Device into Left Basilic Vein, Percutaneous Approach (ICD-10-PCS; principal; 2019-07-06 14:20)
DX: J44.0 Chronic obstructive pulmonary disease with (acute) lower respiratory infection (principal); J96.21 Acute and chronic respiratory failure with hypoxia; J96.22 Acute and chronic respiratory failure with hypercapnia; J44.1 Chronic obstructive pulmonary disease with (acute) exacerbation; I11.0 Hypertensive heart disease with heart failure; I50.9 Heart failure, unspecified; E11.9 Type 2 diabetes mellitus without complications; B96.5 Pseudomonas (aeruginosa) (mallei) (pseudomallei) as the cause of diseases classified elsewhere; E03.9 Hypothyroidism, unspecified; D64.9 Anemia, unspecified; Z99.81 Dependence on supplemental oxygen; Z79.4 Long term (current) use of insulin; I48.0 Paroxysmal atrial fibrillation; J20.9 Acute bronchitis, unspecified; Z20.828 Contact with and (suspected) exposure to other viral communicable diseases; J45.40 Moderate persistent asthma, uncomplicated; K21.9 Gastro-esophageal reflux disease without esophagitis; K44.9 Diaphragmatic hernia without obstruction or gangrene; F41.0 Panic disorder [episodic paroxysmal anxiety]; M19.90 Unspecified osteoarthritis, unspecified site; H91.90 Unspecified hearing loss, unspecified ear; Z77.22 Contact with and (suspected) exposure to environmental tobacco smoke (acute) (chronic); Z79.83 Long term (current) use of bisphosphonates; Z79.01 Long term (current) use of anticoagulants; Z79.890 Hormone replacement therapy; Z79.899 Other long term (current) drug therapy; Z90.710 Acquired absence of both cervix and uterus; Z90.49 Acquired absence of other specified parts of digestive tract; Z87.01 Personal history of pneumonia (recurrent); Z87.448 Personal history of other diseases of urinary system; Z98.42 Cataract extraction status, left eye; Z88.0 Allergy status to penicillin; Z91.041 Radiographic dye allergy status; Z91.040 Latex allergy status
CPT/HCPCS: 36410; 36415; 71045; 76937; 80048; 83036; 85025; 85027; 85610; 87040; 87070; 87077; 87186; 87205; 87635; 93005; 94640; 94760; 96365; 96375; 99285

== ENCOUNTER 2019-08-07 13:17 | Observation (INO) | payer MEDICARE ==
[2019-08-07] MEDS ORDERED: IPRATROPIUM-ALBUTEROL 3 ML NEB INHALATION STA (13:54)
--- NOTE | 2019-08-07 14:03 | ED ---
General Adult HPI - General Chief complaint: Shortness of Breath Stated complaint: SOB Time Seen by Provider: 08/07/19 13:20 Source: patient, RN notes reviewed, old records reviewed Mode of arrival: wheelchair Limitations: no limitations - History of Present Illness Initial comments: This is a 73-year-old female who presents emergency Department with a past medical history significant for COPD and diabetes. Patient also states she has had a history of congestive heart failure. Patient comes into the emergency department today after a weeklong history of dyspnea. Patient states the dyspnea is getting progressively worse. Patient states exertion makes it particularly worse. Patient denies any chest pain or palpitations. Patient denies any recent fever chills or cough. Patient denies any abdominal pain patient denies nausea vomiting or diarrhea. Patient denies any lightheadedness or dizziness. Patient does also complain of some right ear pain as well as a sore throat. She denies any increased swelling to her legs or calf tenderness. - Related Data Home Medications Medication Instructions Recorded Confirmed ALPRAZolam [Xanax] 0.5 mg PO TID 01/16/19 06/28/19 Alendronate Sodium [Fosamax] 70 mg PO FR 01/16/19 06/28/19 Citalopram Hydrobromide 40 mg PO DAILY 01/16/19 06/28/19 [Citalopram HBr] Diltiazem HCl [Diltiazem HCl 24Hr 180 mg PO DAILY 01/16/19 06/28/19 ER] Furosemide [Lasix] 40 mg PO DAILY 01/16/19 06/28/19 Ipratropium Nebulized [Atrovent 0.5 mg INHALATION RT-QID 01/16/19 06/28/19 Nebulized 0.2 MG/ML] Levothyroxine Sodium [Synthroid] 50 mg PO DAILY 01/16/19 06/28/19 Losartan [Cozaar] 50 mg PO DAILY 01/16/19 06/28/19 Lovastatin [Mevacor] 40 mg PO DAILY 01/16/19 06/28/19 Potassium Chloride [Klor-Con 20] 20 meq PO BID 01/16/19 06/28/19 Zafirlukast [Accolate] 20 mg PO BID 01/16/19 06/28/19 traMADol HCL 50 mg PO TID PRN 01/16/19 06/28/19 Insulin Regular, Human [NovoLIN R] See Protocol SQ ACHS 03/16/19 06/28/19 Albuterol Nebulized [Ventolin 2.5 mg INHALATION RT-QID 04/26/19 06/28/19 Nebulized] Insulin Glargine [Lantus] 30 unit SQ DAILY 06/28/19 06/28/19 Warfarin Sodium [Coumadin] 5 mg PO HS 06/28/19 06/28/19 Previous Rx's Medication Instructions Recorded Meropenem [Merrem] 1 gm IVPB Q12HR vial 07/06/19 Allergies Allergy/AdvReac Type Severity Reaction Status Date / Time Iodinated Contrast Media Allergy Unknown, Verified 06/28/19 20:18 POOR RENAL FUNCTIONS latex Allergy Rash/Hives Verified 06/28/19 20:18 Penicillins Allergy Rash/Hives Verified 06/28/19 20:18 Review of Systems ROS Statement: Those systems with pertinent positive or pertinent negative responses have been documented in the HPI. ROS Other: All systems not noted in ROS Statement are negative. Past Medical History Past Medical History: Atrial Fibrillation, Asthma, Heart Failure, COPD, Diabetes Mellitus, GERD/Reflux, Hearing Disorder / Deafness, Hypertension, Os teoarthritis (OA), Pneumonia, Renal Disease, Thyroid Disorder Additional Past Medical History / Comment(s): HOLE IN RIGHT RETINA. hiatal hernia, anemia, chronic hypoxic respiratory failure, recent pulmonary infection with pseudomonas aeruginosa confirmed via bronchoscopy and the lavage History of Any Multi-Drug Resistant Organisms: Other MDRO Past Surgical History: Cholecystectomy, Hysterectomy Additional Past Surgical History / Comment(s): CATARACT REMOVAL LEFT EYE. Past Anesthesia/Blood Transfusion Reactions: No Reported Reaction Past Psychological History: Anxiety, Panic Disorder Smoking Status: Never smoker Past Alcohol Use History: None Reported Past Drug Use History: None Reported - Past Family History Mother Family Medical History: No Reported History General Exam - General Exam Comments Initial Comments: GENERAL: Patient is well-developed and well-nourished. Patient is nontoxic and well- hydrated and is in mild distress. ENT: Neck is soft and supple. No significant lymphadenopathy is noted. Oropharynx is clear. Moist mucous membranes. Neck has full range of motion without eliciting any pain. EYES: The sclera were anicteric and conjunctiva were pink and moist. Extraocular movements were intact and pupils were equal round and reactive to light. Eyelids were unremarkable. PULMONARY: Patient has expiratory wheezing diffusely CARDIOVASCULAR: There is a regular rate and rhythm without any murmurs gallops or rubs. ABDOMEN: Soft and nontender with normal bowel sounds. SKIN: Skin is clear with no lesions or rashes and otherwise unremarkable. NEUROLOGIC: Patient is alert and oriented x3. Cranial nerves II through XII are grossly intact. Motor and sensory are also intact. Normal speech, volume and content. Symmetrical smile. MUSCULOSKELETAL: Normal extremities with adequate strength and full range of motion. LYMPHATICS: No significant lymphadenopathy is noted PSYCHIATRIC: Normal psychiatric evaluation. Limitations: no limitations Course Vital Signs 08/07/19 08/07/19 08/07/19 13:21 14:19 14:29 Temperature 98.3 F Pulse Rate 90 80 80 Respiratory 20 Rate Blood Pressure 171/79 O2 Sat by Pulse 98 Oximetry Medical Decision Making - Medical Decision Making EKG shows normal sinus rhythm at 82 bpm [place] interval is on a 54 QRS 106 QT interv al 384 QTC is 446. Patient's EKG shows no ST segment elevation or depression. Chest x-ray shows no acute abnormality. Patient received multiple breathing 2 to the emergency department as well as steroids she did improve slightly but still was short of breath. I [facility] agreed [facility] the patient and the patient wrote admitting orders - Lab Data Result diagrams: 08/07/19 14:14 08/07/19 14:14 Lab Results 08/07/19 08/07/19 08/07/19 Range/Units 14:14 14:14 14:14 WBC 7.5 (3.8-10.6) k/uL RBC 3.87 (3.80-5.40) m/uL Hgb 9.8 L (11.4-16.0) gm/dL Hct 31.7 L (34.0-46.0) % MCV 82.0 (80.0-100.0) fL MCH 25.3 (25.0-35.0) pg MCHC 30.9 L (31.0-37.0) g/dL RDW 16.5 H (11.5-15.5) % Plt Count 163 (150-450) k/uL Neutrophils % 65 % Lymphocytes % 23 % Monocytes % 8 % Eosinophils % 3 % Basophils % 0 % Neutrophils # 4.9 (1.3-7.7) k/uL Lymphocytes # 1.7 (1.0-4.8) k/uL Monocytes # 0.6 (0-1.0) k/uL Eosinophils # 0.2 (0-0.7) k/uL Basophils # 0.0 (0-0.2) k/uL Hypochromasia Slight Anisocytosis Slight PT 25.5 H (9.0-12.0) sec INR 2.6 H (<1.2) APTT 40.3 H (22.0-30.0) sec Sodium 138 (137-145) mmol/L Potassium 4.7 (3.5-5.1) mmol/L Chloride 106 (98-107) mmol/L Carbon Dioxide 28 (22-30) mmol/L Anion Gap 4 mmol/L BUN 33 H (7-17) mg/dL Creatinine 1.04 (0.52-1.04) mg/dL Est GFR (CKD-EPI)AfAm 63 (>60 ml/min/1.73 sqM) Est GFR (CKD-EPI)NonAf 54 (>60 ml/min/1.73 sqM) Glucose 111 H (74-99) mg/dL Plasma Lactic Acid Yasir (0.7-2.0) mmol/L Calcium 8.5 (8.4-10.2) mg/dL Magnesium 2.0 (1.6-2.3) mg/dL Total Bilirubin 0.3 (0.2-1.3) mg/dL AST 32 (14-36) U/L ALT 38 H (4-34) U/L Alkaline Phosphatase 87 (38-126) U/L Total Protein 6.7 (6.3-8.2) g/dL Albumin 3.5 (3.5-5.0) g/dL 08/07/19 Range/Units 14:14 WBC (3.8-10.6) k/uL RBC (3.80-5.40) m/uL Hgb (11.4-16.0) gm/dL Hct (34.0-46.0) % MCV (80.0-100.0) fL MCH (25.0-35.0) pg MCHC (31.0-37.0) g/dL RDW (11.5-15.5) % Plt Count (150-450) k/uL Neutrophils % % Lymphocytes % % Monocytes % % Eosinophils % % Basophils % % Neutrophils # (1.3-7.7) k/uL Lymphocytes # (1.0-4.8) k/uL Monocytes # (0-1.0) k/uL Eosinophils # (0-0.7) k/uL Basophils # (0-0.2) k/uL Hypochromasia Anisocytosis PT (9.0-12.0) sec INR (<1.2) APTT (22.0-30.0) sec Sodium (137-145) mmol/L Potassium (3.5-5.1) mmol/L Chloride (98-107) mmol/L Carbon Dioxide (22-30) mmol/L Anion Gap mmol/L BUN (7-17) mg/dL Creatinine (0.52-1.04) mg/dL Est GFR (CKD-EPI)AfAm (>60 ml/min/1.73 sqM) Est GFR (CKD-EPI)NonAf (>60 ml/min/1.73 sqM) Glucose (74-99) mg/dL Plasma Lactic Acid Yasir 0.8 (0.7-2.0) mmol/L Calcium (8.4-10.2) mg/dL Magnesium (1.6-2.3) mg/dL Total Bilirubin (0.2-1.3) mg/dL AST (14-36) U/L ALT (4-34) U/L Alkaline Phosphatase (38-126) U/L Total Protein (6.3-8.2) g/dL Albumin (3.5-5.0) g/dL Disposition Clinical Impression: Acute exacerbation of chronic obstructive pulmonary disease Disposition: ADMITTED IP TO THIS [facility] Referrals: Verona Medrano MD [Primary Care Provider] - 1-2 days Time of Disposition: 14:47
--- NOTE | 2019-08-07 14:10 | XR ---
EXAMINATION TYPE: XR chest 2V DATE OF EXAM: 08/07/2019 COMPARISON: 06/28/2019 HISTORY: Shortness of breath TECHNIQUE: Frontal and lateral views of the chest are obtained. FINDINGS: Scattered senescent parenchymal changes noted. Hyperinflation compatible with COPD. No evidence for infiltrate. No evidence for atelectasis. Heart size is stable. Mediastinal structures are stable and grossly unremarkable. No evidence for hilar prominence. Degenerative changes dorsal spine. IMPRESSION: 1. No evidence for acute pulmonary disease.
[2019-08-07 14:32] LABS: Anisocytosis Slight; Basophils % (A) 0 %; Eosinophils # (A) 0.2 k/uL (0-0.7); Eosinophils % (A) 3 %; HCT 31.7 % (34.0-46.0); HGB 9.8 gm/dL (11.4-16.0); Hypochromasia Slight; Lymphocytes # (A) 1.7 k/uL (1.0-4.8); Lymphocytes % (A) 23 %; MCH 25.3 pg (25.0-35.0); MCHC 30.9 g/dL (31.0-37.0); Mean Platelet Volume 7.2; Monocytes # (A) 0.6 k/uL (0-1.0); Monocytes % (A) 8 %; Neutrophils # (A) 4.9 k/uL (1.3-7.7); Neutrophils % (A) 65 %; Platelet Count 163 k/uL (150-450); RBC 3.87 m/uL (3.80-5.40); RDW 16.5 % (11.5-15.5); WBC 7.5 k/uL (3.8-10.6)
[2019-08-07 14:42] LABS: INR 2.6 (<1.2); Partial Thromboplastin Time 40.3 sec (22.0-30.0); Prothrombin Time 25.5 sec (9.0-12.0)
[2019-08-07 14:43] LABS: Albumin 3.5 g/dL (3.5-5.0); Calcium 8.5 mg/dL (8.4-10.2); Potassium 4.7 mmol/L (3.5-5.1); Total Bilirubin 0.3 mg/dL (0.2-1.3); Total Protein 6.7 g/dL (6.3-8.2)
[2019-08-07] MEDS: IPRATROPIUM-ALBUTEROL 3 ML NEB INHALATION PRN (19:14)
[2019-08-07] MEDS ORDERED: INSULIN DETEMIR (LEVEMIR) 100 UNIT/ML SYR SQ SCH (22:15)
[2019-08-07 22:47] LABS: Glucose,Whole Blood 108 mg/dL (75-99)
[2019-08-07] MEDS: ALPRAZolam 0.5 MG TAB PO SCH (22:50)
[2019-08-07] MEDS: guaiFENesin 600 MG TABLET.ER PO PRN (22:51)
[2019-08-07] MEDS: MONTELUKAST 10 MG TAB PO SCH (22:51)
[2019-08-07] MEDS: ATORVASTATIN 10 MG TAB PO SCH (22:51)
[2019-08-07] MEDS: WARFARIN 5 MG TAB PO SCH (22:51)
--- NOTE | 2019-08-07 23:09 | P.HPIM ---
History of Present Illness H&P Date: 08/07/19 Chief Complaint: DEREK Patient is a 73-year-old female with a known history of COPD on home oxygen, paroxysmal atrial fibrillation on anticoagulation with Eliquis, diabetes type 2 insulin-dependent, hypothyroidism, hypertension and hearing disorder/Deafness presents to ER with complaints of worsening dyspnea for the past 1 week patient was also having cough with light yellowish sputum production. Shortness of breath gets worse with exertion. Denied any complaints of chest pain. No nausea vomiting or abdominal pain or diarrhea. Denied any fever or chills. Patient is on home oxygen. Denied any recent illnesses or sick contacts. Patient was also complaining of right ear pain as well as sore throat. No leg swelling. No calf tenderness. There is a history of blood clots. Chest x-ray showed no evidence for acute pulmonary disease. EKG showed normal s inus rhythm. Laboratory data showed WBC 7.5, hemoglobin 9.8 and RDW 16.5. MCV 82.0 INR 2.6 Sodium 136, potassium 4.7, BUN 33 and creatinine 1.04 Lactic acid 0.8 Troponin x1- BNP 293 Liver enzymes are not elevated patient was hypertensive with blood pressure 171/79 on admission. Review of Systems Constitutional: Patient denies any fever or chills . No generalized weakness or weight loss. Abdomen: Patient denied nausea vomiting and diarrhea and abdominal pain. Cardiovascular: Patient denies any chest pain or short of breath no palp itations. Respiratory: Patient does have cough with sputum production and No shortness of breath Neurologic: Patient denied any numbness or tingling headache. Musculoskeletal: Patient denies any complaints of joint swelling or deformity. Skin: negative. Psychiatric: Negative Endocrine: No heat or cold intolerance. No recent weight gain. Genitourinary: No dysuria or hematuria. All other 14 point ROS negative except the above Past Medical History Past Medical History: Atrial Fibrillation, Asthma, Heart Failure, COPD, Diabetes Mellitus, GERD/Reflux, Hearing Disorder / Deafness, Hypertension, Osteoarthritis (OA), Pneumonia, Renal Disease, Thyroid Disorder Additional Past Medical History / Comment(s): HOLE IN RIGHT RETINA. hiatal hernia, anemia, chronic hypoxic respiratory failure, recent pulmonary infection with pseudomonas aeruginosa confirmed via bronchoscopy and the lavage History of Any Multi-Drug Resistant Organisms: Other MDRO Past Surgical History: Cholecystectomy, Hysterectomy Additional Past Surgical History / Comment(s): CATARACT REMOVAL LEFT EYE. Past Anesthesia/Blood Transfusion Reactions: No Reported Reaction Past Psychological History: Anxiety, Panic Disorder Smoking Status: Never smoker Past Alcohol Use History: None Reported Past Drug Use History: None Reported - Past Family History Mother Family Medical History: No Reported History Medications and Allergies Home Medications Medication Instructions Recorded Confirmed Type ALPRAZolam [Xanax] 0.5 mg PO TID 01/16/19 08/07/19 History Alendronate Sodium [Fosamax] 70 mg PO FR 01/16/19 08/07/19 History Citalopram Hydrobromide 40 mg PO DAILY 01/16/19 08/07/19 History [Citalopram HBr] Diltiazem HCl [Diltiazem HCl 24Hr 180 mg PO DAILY 01/16/19 08/07/19 History ER] Furosemide [Lasix] 40 mg PO DAILY 01/16/19 08/07/19 History Ipratropium Nebulized [Atrovent 0.5 mg INHALATION RT-QID 01/16/19 08/07/19 History Nebulized 0.2 MG/ML] Levothyroxine Sodium [Synthroid] 50 mcg PO DAILY 01/16/19 08/07/19 History Losartan [Cozaar] 50 mg PO DAILY 01/16/19 08/07/19 History Lovastatin [Mevacor] 40 mg PO DAILY 01/16/19 08/07/19 History Potassium Chloride [Klor-Con 20] 20 meq PO BID 01/16/19 08/07/19 History Zafirlukast [Accolate] 20 mg PO BID 01/16/19 08/07/19 History traMADol HCL 50 mg PO TID PRN 01/16/19 08/07/19 History Insulin Regular, Human [NovoLIN R] See Protocol SQ ACHS 03/16/19 08/07/19 History Albuterol Nebulized [Ventolin 2.5 mg INHALATION RT-Q6H 04/26/19 08/07/19 History Nebulized] Insulin Glargine [Lantus] 30 unit SQ DAILY 06/28/19 08/07/19 History Warfarin Sodium [Coumadin] 5 mg PO HS 06/28/19 08/07/19 History Albuterol Sulfate [Ventolin HFA] 1 - 2 puff INHALATION RT-Q6H PRN 08/07/19 08/07/19 History Loratadine [Claritin] 10 mg PO DAILY 08/07/19 08/07/19 History Allergies Allergy/AdvReac Type Severity Reaction Status Date / Time Iodinated Contrast Media Allergy Unknown, Verified 08/07/19 14:53 POOR RENAL FUNCTIONS Sulfa (Sulfonamide Allergy Unknown Verified 08/07/19 14:56 Antibiotics) latex AdvReac Rash/Hives Verified 08/07/19 14:56 Penicillins AdvReac Rash/Hives Verified 08/07/19 14:56 Physical Exam Vitals: Vital Signs Temp Pulse Pulse Resp BP BP Pulse Ox 08/07/19 20:00 98 F 81 17 146/66 97 08/07/19 19:24 74 20 08/07/19 19:14 74 20 08/07/19 19:00 97.2 F L 78 18 98 08/07/19 17:07 98 F 80 18 147/67 98 08/07/19 17:00 83 22 162/76 98 08/07/19 16:00 89 24 163/83 96 08/07/19 14:29 80 08/07/19 14:25 98 08/07/19 14:19 80 08/07/19 13:25 24 08/07/19 13:21 98.3 F 90 20 171/79 98 Intake and Output 08/07/19 08/07/19 08/07/19 06:59 14:59 22:59 Intake Total 60 Balance 60 Intake: Oral 60 Other: Voiding Method Toilet Weight 95.254 kg 95.254 kg PHYSICAL EXAMINATION: Patient is lying in the bed comfortably, no acute distress, awake alert and oriented.. HEENT: Normocephalic. Neck is supple. Pupils reactive. Nostrils clear. Oral cavity is moist. Ears reveal no drainage. Neck reveals no JVD, carotid bruits, or thyromegaly. CHEST EXAMINATION: Trachea is central. Symmetrical expansion.Bilateral expiratory wheezing and scattered rhonchi. Nonlabored breathing.. CARDIAC: Normal S1, S2 with no gallops. No murmurs ABDOMEN: Soft. Bowel sounds normal. No organomegaly. No abdominal bruits. Extremities: reveal no edema. No clubbing or cyanosis Neurologically awake, alert, oriented x3 with well-coordinated movements. No focal deficits noted Skin: No rash or skin lesions. Psychiatric: Coperative. Nonsuicidal Musculoskeletal: No joint swelling or deformity. Normal range of motion. Results CBC & Chem 7: 08/07/19 14:14 08/07/19 14:14 Labs: Abnormal Lab Results - Last 24 Hours (Table) 08/07/19 08/07/19 08/07/19 Range/Units 14:14 14:14 14:14 Hgb 9.8 L (11.4-16.0) gm/dL Hct 31.7 L (34.0-46.0) % MCHC 30.9 L (31.0-37.0) g/dL RDW 16.5 H (11.5-15.5) % PT 25.5 H (9.0-12.0) sec INR 2.6 H (<1.2) APTT 40.3 H (22.0-30.0) sec BUN 33 H (7-17) mg/dL Glucose 111 H (74-99) mg/dL ALT 38 H (4-34) U/L Thrombosis Risk Factor Assmnt - DVT/VTE Prophylaxis DVT/VTE Prophylaxis: Pharmacologic Prophylaxis ordered - Choose All That Apply Any of the Below Risk Factors Present?: Yes Each Factor Represents 1 point: Abnormal pulmonary function (COPD), Obesity (BMI >25) Other Risk Factors: Yes Each Risk Factor Represents 2 Points: Age 61-74 years Other congenital or acquired thrombophilia - If yes, enter type in comment: No Thrombosis Risk Factor Assessment Total Risk Factor Score: 4 Thrombosis Risk Factor Assessment Level: Moderate Risk Assessment and Plan Assessment: Acute COPD exacerbation secondary to purulent tracheobronchitis. Chronic hypoxic respiratory failure secondary to COPD History of Pseudomonas pneumonia. Hypertension Paroxysmal atrial fibrillation on anticoagulation with Coumadin Diabetes type 2 insulin-dependent Osteoarthritis Hypothyroidism Anxiety/panic disorder Morbid obesity with BMI 36.0 Plan: Patient will be continued oxygen therapy, prednisone 40 mg daily and duo nebs. Started on antibiotics in the form of azithromycin. Continue with home medications including insulin and titrate dose as needed. Further recomme ndations based on clinical course. Time with Patient: Greater than 30
[2019-08-08] MEDS: LEVOTHYROXINE 50 MCG TAB PO SCH (05:26)
[2019-08-08] MEDS: IPRATROPIUM-ALBUTEROL 3 ML NEB INHALATION PRN ×2 (06:03→11:18)
[2019-08-08 06:20] LABS: Glucose,Whole Blood 93 mg/dL (75-99)
[2019-08-08] MEDS ORDERED: INSULIN REGULAR 100 UNIT/ML VIAL SQ SCH (07:30)
[2019-08-08] MEDS: ALPRAZolam 0.5 MG TAB PO SCH ×3 (08:07→21:23)
[2019-08-08] MEDS: FUROSEMIDE 40 MG TAB PO SCH (08:08)
[2019-08-08] MEDS: LORATADINE 10 MG TAB PO SCH (08:08)
[2019-08-08] MEDS: CITALOPRAM HYDROBROMIDE 20 MG TAB PO SCH (08:08)
[2019-08-08] MEDS: ATORVASTATIN 10 MG TAB PO SCH (08:08)
[2019-08-08] MEDS: DILTIAZEM CD 180 MG CAP.ER.24H PO SCH (08:08)
[2019-08-08] MEDS: POTASSIUM CHLORIDE ER 20 MEQ TAB.ER PO SCH ×2 (08:08→20:14)
[2019-08-08] MEDS: LOSARTAN 50 MG TAB PO SCH (08:08)
[2019-08-08 08:36] LABS: Anisocytosis Slight; Basophils % (A) 0 %; Eosinophils # (A) 0.2 k/uL (0-0.7); Eosinophils % (A) 3 %; HCT 29.3 % (34.0-46.0); HGB 8.9 gm/dL (11.4-16.0); Hypochromasia Moderate; Lymphocytes # (A) 1.6 k/uL (1.0-4.8); Lymphocytes % (A) 29 %; MCH 25.7 pg (25.0-35.0); MCHC 30.6 g/dL (31.0-37.0); MCV 84.1 fL (80.0-100.0); Mean Platelet Volume 6.8; Monocytes # (A) 0.4 k/uL (0-1.0); Monocytes % (A) 6 %; Neutrophils # (A) 3.4 k/uL (1.3-7.7); Neutrophils % (A) 60 %; Platelet Count 144 k/uL (150-450); RBC 3.48 m/uL (3.80-5.40); RDW 16.5 % (11.5-15.5); WBC 5.7 k/uL (3.8-10.6)
[2019-08-08 08:52] LABS: INR 2.6 (<1.2); Prothrombin Time 25.5 sec (9.0-12.0)
[2019-08-08] MEDS: INSULIN DETEMIR (LEVEMIR) 100 UNIT/ML SYR SQ SCH (08:53)
[2019-08-08] MEDS: AZITHROMYCIN 500 MG TAB PO SCH (08:53)
[2019-08-08] MEDS ORDERED: predniSONE 20 MG TAB PO SCH (09:00)
[2019-08-08 09:21] LABS: Calcium 7.8 mg/dL (8.4-10.2); Potassium 4.5 mmol/L (3.5-5.1)
[2019-08-08] MEDS: guaiFENesin 600 MG TABLET.ER PO PRN ×2 (10:27→21:23)
[2019-08-08 11:48] LABS: Glucose,Whole Blood 212 mg/dL (75-99)
[2019-08-08] MEDS: INSULIN ASPART (NovoLOG) 100 UNIT/ML VIAL SQ SCH ×3 (12:59→20:48)
[2019-08-08] MEDS: IPRATROPIUM-ALBUTEROL 3 ML NEB INHALATION SCH ×3 (15:23→23:40)
[2019-08-08] MEDS: methylPREDNISolone SOD SUCCI 40 MG/ML 1 ML VIAL IV SCH ×2 (15:37→23:23)
[2019-08-08 17:12] LABS: Glucose,Whole Blood 317 mg/dL (75-99)
[2019-08-08] MEDS: WARFARIN 5 MG TAB PO SCH (17:21)
[2019-08-08] MEDS ORDERED: INSULIN ASPART (NovoLOG) 100 UNIT/ML VIAL SQ ONE ×2 (17:32→20:40)
[2019-08-08 18:30] LABS: % Iron Saturation 11.4 (12.00-45.00)
[2019-08-08] MEDS: BUDESONIDE 0.5 MG/2 ML NEBU INHALATION SCH (19:16)
[2019-08-08] MEDS: MONTELUKAST 10 MG TAB PO SCH (20:14)
[2019-08-08 20:15] LABS: Glucose,Whole Blood 389 mg/dL (75-99)
--- NOTE | 2019-08-09 01:55 | P.PN ---
Subjective Progress Note Date: 08/08/19 Principal diagnosis: Acute COPD exacerbation Patient is a 73-year-old female with a known history of COPD on home oxygen, paroxysmal atrial fibrillation on anticoagulation with Eliquis, diabetes type 2 insulin-dependent, hypothyroidism, hypertension and hearing disorder/Deafness presents to ER with complaints of worsening dyspnea for the past 1 week patient was also having cough with light yellowish sputum production. Shortness of breath gets worse with exertion. Denied any complaints of chest pain. No nausea vomiting or abdominal pain or diarrhea. Denied any fever or chills. Patient is on home oxygen. Denied any recent illnesses or sick contacts. Patient was also complaining of right ear pain as well as sore throat. No leg swelling. No calf tenderness. There is a history of blood clots. Chest x-ray showed no evidence for acute pulmonary disease. EKG showed normal sinus rhythm. Laboratory data showed WBC 7.5, hemoglobin 9.8 and RDW 16.5. MCV 82.0 INR 2.6 Sodium 136, potassium 4.7, BUN 33 and creatinine 1.04 Lactic acid 0.8 Troponin x1- BNP 293 Liver enzymes are not elevated patient was hypertensive with blood pressure 171/79 on admissio 08/08/2019 Patient is still having exertional dyspnea and diffuse rhonchi on examination. Awake alert oriented x3. Currently on oxygen via nasal cannula. No complaints of chest pain. Continued on steroids changed to steroids IV. DuoNebs will be changed to scheduled doses and Pulmicort inhalation twice daily was added. Continue with empiric antibiotics. No complaints of nausea vomiting or abdominal pain or diarrhea. No dysuria or hematuria. No headache or dizziness or lightheadedness. No chest pain. Current medications reviewed. Objective - Vital Signs Vital signs: Vital Signs Temp 98.1 F 08/08/19 20:00 Pulse 87 08/08/19 20:00 Resp 18 08/08/19 20:00 BP 137/70 08/08/19 20:00 Pulse Ox 97 08/08/19 20:00 Intake & Output 08/08/19 08/08/19 08/09/19 06:59 18:59 06:59 Intake Total 250 3400 270 Balance 250 3400 270 Weight 96 kg Intake: Oral 250 3400 270 Other: Voiding Method Toilet Toilet Toilet Diaper # Voids 1 6 - Exam PHYSICAL EXAMINATION: Patient is lying in the bed comfortably, no acute distress, awake alert and oriented.. HEENT: Normocephalic. Neck is supple. Pupils reactive. Nostrils clear. Oral cavity is moist. Ears reveal no drainage. Neck reveals no JVD, carotid bruits, or thyromegaly. CHEST EXAMINATION: Trachea is central. Symmetrical expansion.Bilateral expiratory wheezing and scattered rhonchi. Nonlabored breathing.. CARDIAC: Normal S1, S2 with no gallops. No murmurs ABDOMEN: Soft. Bowel sounds normal. No organomegaly. No abdominal bruits. Extremities: reveal no edema. No clubbing or cyanosis Neurologically awake, alert, oriented x3 with well-coordinated movements. No focal deficits noted Skin: No rash or skin lesions. Psychiatric: Coperative. Nonsuicidal Musculoskeletal: No joint swelling or deformity. Normal range of motion. - Labs CBC & Chem 7: 08/08/19 08:13 08/08/19 08:13 Labs: Abnormal Lab Results - Last 24 Hours (Table) 08/07/19 08/08/19 08/08/19 Range/Units 22:45 08:13 08:13 RBC 3.48 L (3.80-5.40) m/uL Hgb 8.9 L (11.4-16.0) gm/dL Hct 29.3 L (34.0-46.0) % MCHC 30.6 L (31.0-37.0) g/dL RDW 16.5 H (11.5-15.5) % Plt Count 144 L (150-450) k/uL PT 25.5 H (9.0-12.0) sec INR 2.6 H (<1.2) BUN (7-17) mg/dL Creatinine (0.52-1.04) mg/dL Glucose (74-99) mg/dL POC Glucose (mg/dL) 108 H (75-99) mg/dL Calcium (8.4-10.2) mg/dL Iron (50-170) ug/dL % Saturation (12.00-45.00) 08/08/19 08/08/19 08/08/19 Range/Units 08:13 08:13 11:46 RBC (3.80-5.40) m/uL Hgb (11.4-16.0) gm/dL Hct (34.0-46.0) % MCHC (31.0-37.0) g/dL RDW (11.5-15.5) % Plt Count (150-450) k/uL PT (9.0-12.0) sec INR (<1.2) BUN 31 H (7-17) mg/dL Creatinine 1.23 H (0.52-1.04) mg/dL Glucose 149 H (74-99) mg/dL POC Glucose (mg/dL) 212 H (75-99) mg/dL Calcium 7.8 L (8.4-10.2) mg/dL Iron 31 L (50-170) ug/dL % Saturation 11.40 L (12.00-45.00) 08/08/19 08/08/19 Range/Units 17:08 20:13 RBC (3.80-5.40) m/uL Hgb (11.4-16.0) gm/dL Hct (34.0-46.0) % MCHC (31.0-37.0) g/dL RDW (11.5-15.5) % Plt Count (150-450) k/uL PT (9.0-12.0) sec INR (<1.2) BUN (7-17) mg/dL Creatinine (0.52-1.04) mg/dL Glucose (74-99) mg/dL POC Glucose (mg/dL) 317 H 389 H (75-99) mg/dL Calcium (8.4-10.2) mg/dL Iron (50-170) ug/dL % Saturation (12.00-45.00) Assessment and Plan Assessment: Acute COPD exacerbation secondary to purulent tracheobronchitis. Chronic hypoxic respiratory failure secondary to COPD History of Pseudomonas pneumonia. Hypertension Paroxysmal atrial fibrillation on anticoagulation with Coumadin Diabetes type 2 insulin-dependent Osteoarthritis Hypothyroidism Anxiety/panic disorder Morbid obesity with BMI 36.0 Plan: Patient will be continued oxygen therapy, IV Solu-Medrol 40 mg every 8 hourly. Continue with the duo nebs and Pulmicort was added. Started on antibiotics in the form of azithromycin. Continue with home medications including insulin and titrate dose as needed. Further recommendations based on clinical course. Time with Patient: Greater than 30
[2019-08-09] MEDS: traMADol 50 MG TAB PO PRN ×2 (02:16→10:21)
[2019-08-09] MEDS: IPRATROPIUM-ALBUTEROL 3 ML NEB INHALATION SCH ×5 (03:40→20:45)
[2019-08-09] MEDS: LEVOTHYROXINE 50 MCG TAB PO SCH (05:51)
[2019-08-09 06:14] LABS: Basophils % (A) 0 %; Eosinophils % (A) 1 %; HCT 29.4 % (34.0-46.0); HGB 9.5 gm/dL (11.4-16.0); Hypochromasia Moderate; Lymphocytes # (A) 0.3 k/uL (1.0-4.8); Lymphocytes % (A) 5 %; MCH 26.9 pg (25.0-35.0); MCHC 32.1 g/dL (31.0-37.0); MCV 83.7 fL (80.0-100.0); Mean Platelet Volume 7.1; Monocytes # (A) 0.1 k/uL (0-1.0); Monocytes % (A) 2 %; Neutrophils % (A) 93 %; Platelet Count 151 k/uL (150-450); RBC 3.52 m/uL (3.80-5.40); RDW 15.7 % (11.5-15.5); WBC 6.5 k/uL (3.8-10.6)
[2019-08-09 06:21] LABS: Prothrombin Time 29.3 sec (9.0-12.0)
[2019-08-09 06:30] LABS: Calcium 7.9 mg/dL (8.4-10.2); Potassium 4.9 mmol/L (3.5-5.1)
[2019-08-09 06:42] LABS: Glucose,Whole Blood 298 mg/dL (75-99)
[2019-08-09] MEDS: INSULIN ASPART (NovoLOG) 100 UNIT/ML VIAL SQ SCH ×4 (06:58→22:06)
[2019-08-09] MEDS: INSULIN DETEMIR (LEVEMIR) 100 UNIT/ML SYR SQ SCH (06:58)
[2019-08-09] MEDS: BUDESONIDE 0.5 MG/2 ML NEBU INHALATION SCH ×2 (07:08→20:45)
--- NOTE | 2019-08-09 08:06 | CDI ---
Documentation Clarification Form Date: 08/09/2019 07:48:06 AM From: Rebecca Amanda RN CCDS Email: [email or web address] Admit Date: 08/08/2019 12:34:00 PM Patient Name: Xi Lloyd Visit Number: [id number] Discharge Date: ATTENTION: The Clinical Documentation Specialists (CDI) and [facility] Coding Staff appreciate your assistance in clarifying documentation. Please respond to the clarification below the line at the bottom and electronically sign. The CDI & [facility] Coding staff will review the response and follow-up if needed. Please note: Queries are made part of the Legal Health Record. If you have any questions, please contact the author of this message via ITS. Dr. Nathalia Dalton Heart Failure is documented in the H&P under past medical history 08/06 History/Risk Factors: 73-year-old female presents to the ED with a weeklong history of shortness of breath getting progressively worse. Medical history COPD, DM, and Heart Failure. Clinical Indicators: 08/06 VS/Pulse OX: 171/79 90 98.3 20 98% 2L nasal cannula 08/06 BNP: 293 08/06 Chest X Ray: No evidence for acute pulmonary disease Treatment: 08/07 Lasix PO 40mg Daily, Cozaar In your professional opinion, can you please clarify the acuity and type of CHF if known? Chronic Systolic Heart Failure Chronic Diastolic Heart Failure Chronic Systolic & Diastolic Heart Failure Heart Failure Unable to Determine Other, please specify (Last Revision: May 2017) Heart Failure Unable to Determine MTDD
[2019-08-09] MEDS: ATORVASTATIN 10 MG TAB PO SCH (08:57)
[2019-08-09] MEDS: LORATADINE 10 MG TAB PO SCH (08:57)
[2019-08-09] MEDS: LOSARTAN 50 MG TAB PO SCH (08:57)
[2019-08-09] MEDS: FUROSEMIDE 40 MG TAB PO SCH (08:57)
[2019-08-09] MEDS: CITALOPRAM HYDROBROMIDE 20 MG TAB PO SCH (08:57)
[2019-08-09] MEDS: ALPRAZolam 0.5 MG TAB PO SCH ×3 (08:57→22:07)
[2019-08-09] MEDS: methylPREDNISolone SOD SUCCI 40 MG/ML 1 ML VIAL IV SCH ×2 (08:57→15:45)
[2019-08-09] MEDS: POTASSIUM CHLORIDE ER 20 MEQ TAB.ER PO SCH ×2 (08:57→22:07)
[2019-08-09] MEDS: AZITHROMYCIN 500 MG TAB PO SCH (09:00)
[2019-08-09] MEDS: DILTIAZEM CD 180 MG CAP.ER.24H PO SCH (09:00)
[2019-08-09] MEDS: guaiFENesin 600 MG TABLET.ER PO PRN (10:21)
[2019-08-09 12:17] LABS: Glucose,Whole Blood 350 mg/dL (75-99)
[2019-08-09 17:01] LABS: Glucose,Whole Blood 393 mg/dL (75-99)
[2019-08-09] MEDS ORDERED: INSULIN ASPART (NovoLOG) 100 UNIT/ML VIAL SQ ONE ×2 (17:33→21:50)
[2019-08-09] MEDS ORDERED: INSULIN DETEMIR (LEVEMIR) 100 UNIT/ML SYR SQ ONE (18:00)
[2019-08-09] MEDS ORDERED: WARFARIN 2 MG TAB PO SCH (18:00)
[2019-08-09 21:29] LABS: Glucose,Whole Blood 296 mg/dL (75-99)
[2019-08-09] MEDS: MONTELUKAST 10 MG TAB PO SCH (22:07)
[2019-08-10] MEDS: methylPREDNISolone SOD SUCCI 40 MG/ML 1 ML VIAL IV SCH ×2 (00:38→10:18)
[2019-08-10] MEDS: IPRATROPIUM-ALBUTEROL 3 ML NEB INHALATION SCH ×6 (00:59→19:03)
[2019-08-10 06:20] VITALS: TEMP 97.6
[2019-08-10 06:33] LABS: Glucose,Whole Blood 331 mg/dL (75-99)
[2019-08-10] MEDS: LEVOTHYROXINE 50 MCG TAB PO SCH (06:49)
[2019-08-10] MEDS ORDERED: INSULIN DETEMIR (LEVEMIR) 100 UNIT/ML SYR SQ SCH (07:00)
[2019-08-10] MEDS ORDERED: Alendronate Sodium [Fosamax] 70 MG PO SCH (07:00)
[2019-08-10] MEDS: BUDESONIDE 0.5 MG/2 ML NEBU INHALATION SCH ×2 (07:28→19:03)
[2019-08-10 08:45] LABS: INR 3.7 (<1.2); Prothrombin Time 36.8 sec (9.0-12.0)
[2019-08-10] MEDS: LORATADINE 10 MG TAB PO SCH (10:19)
[2019-08-10] MEDS: AZITHROMYCIN 500 MG TAB PO SCH (10:19)
[2019-08-10] MEDS: POTASSIUM CHLORIDE ER 20 MEQ TAB.ER PO SCH (10:19)
[2019-08-10] MEDS: DILTIAZEM CD 180 MG CAP.ER.24H PO SCH (10:19)
[2019-08-10] MEDS: LOSARTAN 50 MG TAB PO SCH (10:20)
[2019-08-10] MEDS: INSULIN ASPART (NovoLOG) 100 UNIT/ML VIAL SQ SCH ×5 (10:20→17:35)
[2019-08-10] MEDS: ALPRAZolam 0.5 MG TAB PO SCH ×2 (10:20→17:36)
[2019-08-10] MEDS: ATORVASTATIN 10 MG TAB PO SCH (10:20)
[2019-08-10] MEDS: FUROSEMIDE 40 MG TAB PO SCH (10:20)
[2019-08-10] MEDS: CITALOPRAM HYDROBROMIDE 20 MG TAB PO SCH (10:20)
[2019-08-10 11:55] LABS: Glucose,Whole Blood 430 mg/dL (75-99)
[2019-08-10 14:34] LABS: Glucose,Whole Blood 440 mg/dL (75-99)
[2019-08-10] MEDS ORDERED: INSULIN ASPART (NovoLOG) 100 UNIT/ML VIAL SQ ONE (14:38)
[2019-08-10 17:06] LABS: Glucose,Whole Blood 279 mg/dL (75-99)
[2019-08-10 17:14] VITALS: BP 154/62; RESP 16
[2019-08-10 19:21] VITALS: PULSE 92
[2019-08-11] MEDS ORDERED: predniSONE 20 MG TAB PO SCH (09:00)
[2019-08-11] MEDS ORDERED: WARFARIN 2 MG TAB PO SCH (18:00)
== END 2019-08-10 19:30 | disposition home health service (06) ==
LOC: EC 13:17 → 1SOBS 16:44 → INTOOBSV 08-08 12:34 → OBSVTOIN 08-08 12:34 → UNDODISIN 08-10 19:30
PROVIDERS: ADMIT Internal Medicine; ATTEND Internal Medicine
DX: J44.1 Chronic obstructive pulmonary disease with (acute) exacerbation (principal); J96.11 Chronic respiratory failure with hypoxia; I48.0 Paroxysmal atrial fibrillation; I11.0 Hypertensive heart disease with heart failure; I50.9 Heart failure, unspecified; E11.9 Type 2 diabetes mellitus without complications; H92.01 Otalgia, right ear; J02.9 Acute pharyngitis, unspecified; H91.90 Unspecified hearing loss, unspecified ear; K21.9 Gastro-esophageal reflux disease without esophagitis; M19.90 Unspecified osteoarthritis, unspecified site; Z87.01 Personal history of pneumonia (recurrent); H33.321 Round hole, right eye; E03.9 Hypothyroidism, unspecified; K44.9 Diaphragmatic hernia without obstruction or gangrene; E66.01 Morbid (severe) obesity due to excess calories; Z68.36 Body mass index [BMI] 36.0-36.9, adult; B96.5 Pseudomonas (aeruginosa) (mallei) (pseudomallei) as the cause of diseases classified elsewhere; Z86.19 Personal history of other infectious and parasitic diseases; Z90.49 Acquired absence of other specified parts of digestive tract; Z90.710 Acquired absence of both cervix and uterus; Z98.42 Cataract extraction status, left eye; F41.9 Anxiety disorder, unspecified; F41.0 Panic disorder [episodic paroxysmal anxiety]; Z79.01 Long term (current) use of anticoagulants; Z79.83 Long term (current) use of bisphosphonates; Z79.890 Hormone replacement therapy; Z79.4 Long term (current) use of insulin; Z99.81 Dependence on supplemental oxygen; Z79.899 Other long term (current) drug therapy; N28.9 Disorder of kidney and ureter, unspecified; Z88.0 Allergy status to penicillin; Z88.2 Allergy status to sulfonamides; Z91.041 Radiographic dye allergy status; Z91.040 Latex allergy status
CPT/HCPCS: 96365; 96375; 96376 ×3; 99285; 36415; 94640 ×8; 93005; 83880; 80053; 80048 ×2; 82607; 83540; 83550; 83605; 83735; 84484; 85025 ×3; 85610 ×4; 85730; 71046; G0378 ×4; U0003; J2920 ×3; J0696 ×2; J7512

== ENCOUNTER 2019-09-11 12:34 | Inpatient (IN) | payer MEDICARE ==
[2019-09-11] MEDS ORDERED: methylPREDNISolone SOD SUCCI 125 MG/2 ML VIAL IV STA (12:53)
[2019-09-11] MEDS ORDERED: ALBUTEROL NEBULIZED 2.5 MG/3 ML INHALATION STA (12:53)
[2019-09-11] MEDS ORDERED: IPRATROPIUM 0.5 MG/2.5 ML NEBU INHALATION STA (12:53)
--- NOTE | 2019-09-11 13:01 | ED ---
General Adult HPI - General Chief complaint: Chest Pain Stated complaint: SOB Time Seen by Provider: 09/11/19 12:35 Source: patient, RN notes reviewed, old records reviewed Mode of arrival: wheelchair Limitations: no limitations - History of Present Illness Initial comments: This is a 74-year-old female who presents emergency Department with a past medi juan miguel history significant for COPD. Patient states shortness of breath is gotten worse over the last 2 days. Patient denies any chest pain or palpitations. Patient states she also has a history of congestive heart. But she has not noticed any increased edema in her legs. Patient denies any fever chills or cough. Patient denies headache patient denies lightheadedness or dizziness. Patient denies any recent injury or trauma. Patient denies any nausea vomiting diarrhea. Patient states shortness of breath definitely gets worse with exertion. - Related Data Home Medications Medication Instructions Recorded Confirmed ALPRAZolam [Xanax] 0.5 mg PO TID 01/16/19 09/11/19 Alendronate Sodium [Fosamax] 70 mg PO FR 01/16/19 09/11/19 Citalopram Hydrobromide 40 mg PO DAILY 01/16/19 09/11/19 [Citalopram HBr] Diltiazem HCl [Diltiazem HCl 24Hr 180 mg PO DAILY 01/16/19 09/11/19 ER] Furosemide [Lasix] 40 mg PO DAILY 01/16/19 09/11/19 Ipratropium Nebulized [Atrovent 0.5 mg INHALATION RT-QID 01/16/19 09/11/19 Nebulized 0.2 MG/ML] Levothyroxine Sodium [Synthroid] 50 mcg PO DAILY 01/16/19 09/11/19 Losartan [Cozaar] 50 mg PO DAILY 01/16/19 09/11/19 Lovastatin [Mevacor] 40 mg PO DAILY 01/16/19 09/11/19 Potassium Chloride [Klor-Con 20] 20 meq PO BID 01/16/19 09/11/19 Zafirlukast [Accolate] 20 mg PO BID 01/16/19 09/11/19 traMADol HCL 50 mg PO TID PRN 01/16/19 09/11/19 Albuterol Nebulized [Ventolin 2.5 mg INHALATION RT-Q6H 04/26/19 09/11/19 Nebulized] Insulin Glargine [Lantus] 30 unit SQ DAILY 06/28/19 09/11/19 Warfarin Sodium [Coumadin] 5 mg PO HS 06/28/19 09/11/19 Albuterol Sulfate [Ventolin HFA] 1 - 2 puff INHALATION RT-Q6H PRN 08/07/19 09/11/19 Loratadine [Claritin] 10 mg PO DAILY 08/07/19 09/11/19 Insulin Regular, Human [NovoLIN R] See Protocol SQ ACHS MDD 30 UNITS 09/11/19 09/11/19 Previous Rx's Medication Instructions Recorded Ferrous Sulfate [Iron (65 MG 325 mg PO DAILY #30 tab 08/10/19 Elemental)] guaiFENesin [Mucinex] 600 mg PO Q12HR PRN #14 tablet.er 08/10/19 Allergies Allergy/AdvReac Type Severity Reaction Status Date / Time Iodinated Contrast Media Allergy Unknown, Verified 09/11/19 12:41 POOR RENAL FUNCTIONS Sulfa (Sulfonamide Allergy Unknown Verified 09/11/19 12:41 Antibiotics) latex AdvReac Rash/Hives Verified 09/11/19 12:41 Penicillins AdvReac Rash/Hives Verified 09/11/19 12:41 Review of Systems ROS Statement: Those systems with pertinent positive or pertinent negative responses have been documented in the HPI. ROS Other: All systems not noted in ROS Statement are negative. Past Medical History Past Medical History: Atrial Fibrillation, Asthma, Heart Failure, COPD, Diabetes Mellitus, GERD/Reflux, Hearing Disorder / Deafness, Hypertension, Osteoarthritis (OA), Pneumonia, Renal Disease, Thyroid Disorder Additional Past Medical History / Comment(s): HOLE IN RIGHT RETINA. hiatal hernia, anemia, chronic hypoxic respiratory failure, recent pulmonary infection with pseudomonas aeruginosa confirmed via bronchoscopy and the lavage History of Any Multi-Drug Resistant Organisms: Other MDRO Past Surgical History: Cholecystectomy, Hysterectomy Additional Past Surgical History / Comment(s): CATARACT REMOVAL LEFT EYE. Past Anesthesia/Blood Transfusion Reactions: No Reported Reaction Past Psychological History: Anxiety, Panic Disorder Past Alcohol Use History: None Reported Past Drug Use History: None Reported - Past Family History Mother Family Medical History: No Reported History General Exam - General Exam Comments Initial Comments: GENERAL: Patient is well-developed and well-nourished. Patient is nontoxic and well- hydrated and is in moderate distress. ENT: Neck is soft and supple. No significant lymphadenopathy is noted. Oropharynx is clear. Moist mucous membranes. Neck has full range of motion without eliciting any pain. EYES: The sclera were anicteric and conjunctiva were pink and moist. Extraocular movements were intact and pupils were equal round and reactive to light. Eyelids were unremarkable. PULMONARY: Patient is a very wheezing diffusely. CARDIOVASCULAR: There is a regular rate and rhythm without any murmurs gallops or rubs. ABDOMEN: Soft and nontender with normal bowel sounds. SKIN: Skin is clear with no lesions or rashes and otherwise unremarkable. NEUROLOGIC: Patient is alert and oriented x3. Cranial nerves II through XII are grossly intact. Motor and sensory are also intact. Normal speech, volume and content. Symmetrical smile. MUSCULOSKELETAL: Normal extremities with adequate strength and full range of motion. 1+ edema LYMPHATICS: No significant lymphadenopathy is noted PSYCHIATRIC: Normal psychiatric evaluation. Limitations: no limitations Course Vital Signs 09/11/19 09/11/19 09/11/19 12:35 12:54 13:03 Temperature 98.5 F Pulse Rate 94 82 Pulse Rate [ 87 Head Track Coach ] Respiratory 22 32 H 28 H Rate Blood Pressure 181/64 O2 Sat by Pulse 98 Oximetry 09/11/19 09/11/19 09/11/19 13:37 13:47 14:55 Temperature Pulse Rate 87 86 92 Pulse Rate [ Head Track Coach ] Respiratory 24 22 Rate Blood Pressure 158/57 O2 Sat by Pulse 99 Oximetry Medical Decision Making - Medical Decision Making EKG shows normal sinus rhythm at 96 bpm W[place] interval is 152 QRS 104 QT interval 366 QTC is 462. Patient's EKG shows no ST segment elevation or depression. Chest x-ray showed no acute abnormality. Patient received 50 mg of albuterol and Atrovent and 125 mg of Solu-Medrol. I went back and reevaluated the patient she was doing considerably better but still wheezing. Patient will be admitted I spoke with Dr. Gamboa he agreed to admit the patient admitted the patient I wrote admitting orders I continued to appear on steroid in the hospital. - Lab Data Result diagrams: 09/11/19 12:49 09/11/19 12:49 Lab Results 09/11/19 09/11/19 09/11/19 Range/Units 12:49 12:49 12:49 WBC 7.2 (3.8-10.6) k/uL RBC 3.90 (3.80-5.40) m/uL Hgb 10.4 L (11.4-16.0) gm/dL Hct 32.5 L (34.0-46.0) % MCV 83.3 (80.0-100.0) fL MCH 26.7 (25.0-35.0) pg MCHC 32.0 (31.0-37.0) g/dL RDW 15.9 H (11.5-15.5) % Plt Count 178 (150-450) k/uL Neutrophils % 62 % Lymphocytes % 28 % Monocytes % 7 % Eosinophils % 2 % Basophils % 0 % Neutrophils # 4.4 (1.3-7.7) k/uL Lymphocytes # 2.0 (1.0-4.8) k/uL Monocytes # 0.5 (0-1.0) k/uL Eosinophils # 0.2 (0-0.7) k/uL Basophils # 0.0 (0-0.2) k/uL Hypochromasia Moderate PT 10.0 (9.0-12.0) sec INR 1.0 (<1.2) APTT 24.0 (22.0-30.0) sec D-Dimer 0.48 (<0.60) mg/L FEU Sodium (137-145) mmol/L Potassium (3.5-5.1) mmol/L Chloride (98-107) mmol/L Carbon Dioxide (22-30) mmol/L Anion Gap mmol/L BUN (7-17) mg/dL Creatinine (0.52-1.04) mg/dL Est GFR (CKD-EPI)AfAm (>60 ml/min/1.73 sqM) Est GFR (CKD-EPI)NonAf (>60 ml/min/1.73 sqM) Glucose (74-99) mg/dL Plasma Lactic Acid Yasir (0.7-2.0) mmol/L Calcium (8.4-10.2) mg/dL Magnesium (1.6-2.3) mg/dL Total Bilirubin (0.2-1.3) mg/dL AST (14-36) U/L ALT (4-34) U/L Alkaline Phosphatase (38-126) U/L Troponin I <0.012 (0.000-0.034) ng/mL NT-Pro-B Natriuret Pep pg/mL Total Protein (6.3-8.2) g/dL Albumin (3.5-5.0) g/dL 09/11/19 09/11/19 09/11/19 Range/Units 12:49 12:49 12:49 WBC (3.8-10.6) k/uL RBC (3.80-5.40) m/uL Hgb (11.4-16.0) gm/dL Hct (34.0-46.0) % MCV (80.0-100.0) fL MCH (25.0-35.0) pg MCHC (31.0-37.0) g/dL RDW (11.5-15.5) % Plt Count (150-450) k/uL Neutrophils % % Lymphocytes % % Monocytes % % Eosinophils % % Basophils % % Neutrophils # (1.3-7.7) k/uL Lymphocytes # (1.0-4.8) k/uL Monocytes # (0-1.0) k/uL Eosinophils # (0-0.7) k/uL Basophils # (0-0.2) k/uL Hypochromasia PT (9.0-12.0) sec INR (<1.2) APTT (22.0-30.0) sec D-Dimer (<0.60) mg/L FEU Sodium 137 (137-145) mmol/L Potassium 4.9 (3.5-5.1) mmol/L Chloride 104 (98-107) mmol/L Carbon Dioxide 27 (22-30) mmol/L Anion Gap 6 mmol/L BUN 27 H (7-17) mg/dL Creatinine 1.14 H (0.52-1.04) mg/dL Est GFR (CKD-EPI)AfAm 56 (>60 ml/min/1.73 sqM) Est GFR (CKD-EPI)NonAf 48 (>60 ml/min/1.73 sqM) Glucose 164 H (74-99) mg/dL Plasma Lactic Acid Yasir 0.8 (0.7-2.0) mmol/L Calcium 9.0 (8.4-10.2) mg/dL Magnesium 2.1 (1.6-2.3) mg/dL Total Bilirubin 0.4 (0.2-1.3) mg/dL AST 27 (14-36) U/L ALT 20 (4-34) U/L Alkaline Phosphatase 84 (38-126) U/L Troponin I (0.000-0.034) ng/mL NT-Pro-B Natriuret Pep 270 pg/mL Total Protein 7.1 (6.3-8.2) g/dL Albumin 4.0 (3.5-5.0) g/dL Critical Care Time Critical Care Time: Yes Total Critical Care Time: 35 Disposition Clinical Impression: COPD with acute exacerbation Disposition: ADMITTED IP TO THIS HOSP Referrals: Verona Medrano MD [Primary Care Provider] - 1-2 days Time of Disposition: 15:09
[2019-09-11 13:09] LABS: Basophils % (A) 0 %; Eosinophils # (A) 0.2 k/uL (0-0.7); Eosinophils % (A) 2 %; HCT 32.5 % (34.0-46.0); HGB 10.4 gm/dL (11.4-16.0); Hypochromasia Moderate; Lymphocytes % (A) 28 %; MCH 26.7 pg (25.0-35.0); MCV 83.3 fL (80.0-100.0); Mean Platelet Volume 6.7; Monocytes # (A) 0.5 k/uL (0-1.0); Monocytes % (A) 7 %; Neutrophils # (A) 4.4 k/uL (1.3-7.7); Neutrophils % (A) 62 %; Platelet Count 178 k/uL (150-450); RDW 15.9 % (11.5-15.5); WBC 7.2 k/uL (3.8-10.6)
[2019-09-11 13:17] LABS: Magnesium 2.1 mg/dL (1.6-2.3); Potassium 4.9 mmol/L (3.5-5.1); Total Bilirubin 0.4 mg/dL (0.2-1.3); Total Protein 7.1 g/dL (6.3-8.2)
[2019-09-11 13:24] LABS: D-Dimer 0.48 mg/L FEU (<0.60)
--- NOTE | 2019-09-11 14:19 | XR ---
EXAMINATION TYPE: XR chest 2V DATE OF EXAM: 09/11/2019 COMPARISON: 08/07/2019 HISTORY: 74-year-old female difficulty breathing, shortness of breath TECHNIQUE: PA and lateral views FINDINGS: Heart borderline enlarged. Diffuse interstitial and vascular prominence. Patchy bibasilar opacities. IMPRESSION: 1. Borderline cardiomegaly. 2. Diffuse interstitial opacity. Correlate for bronchitis, atypical pneumonias, or mild pulmonary vas cular congestion. 3. Mild patchy opacity at the lung bases, probably atelectasis.
[2019-09-11] MEDS ORDERED: IPRATROPIUM-ALBUTEROL 3 ML NEB INHALATION PRN (15:10)
[2019-09-11] MEDS ORDERED: guaiFENesin 600 MG TABLET.ER PO PRN (16:34)
[2019-09-11] MEDS ORDERED: traMADol 50 MG TAB PO PRN (16:34)
[2019-09-11] MEDS ORDERED: SODIUM CHLORIDE 0.9% IVPB ONE (16:39)
[2019-09-11] MEDS ORDERED: VANCOMYCIN IV PER PHARMACY 1 EACH MISC MISCELLANE PRN (16:39)
[2019-09-11] MEDS ORDERED: VANCOMYCIN IVPB ONE (16:39)
[2019-09-11] MEDS ORDERED: VANCOMYCIN 1,750 MG in SODIUM CHLORIDE 0.9% 500 ML 500 ML IVPB ONE (17:00)
[2019-09-11 17:40] LABS: Glucose,Whole Blood 247 mg/dL (75-99)
[2019-09-11] MEDS: CEFEPIME 2 GM in SODIUM CHLORIDE 0.9% 100 ML IVPB SCH (17:46)
[2019-09-11] MEDS: FUROSEMIDE 10 MG/ML 4 ML VIAL IV SCH ×2 (17:46→21:55)
[2019-09-11] MEDS: WARFARIN 5 MG TAB PO SCH (17:47)
[2019-09-11] MEDS: methylPREDNISolone SOD SUCCI 125 MG/2 ML VIAL IV SCH (17:47)
[2019-09-11] MEDS: INSULIN ASPART (NovoLOG) 100 UNIT/ML VIAL SQ SCH ×2 (17:56→21:55)
--- NOTE | 2019-09-11 19:00 | HP ---
HISTORY AND PHYSICAL DATE OF SERVICE: 09/11/2019 CHIEF COMPLAINTS: Shortness of breath and cough as well as chest pain. HISTORY OF PRESENT ILLNESS: This 74-year-old woman with a past medical history of multiple medical problems, including history of atrial fibrillation, history of asthma, COPD, CHF, diabetes mellitus, type 2, GERD, hypertension, history of DJD, history of pneumonia, being followed by Dr. Medarno in the outpatient setting, was not feeling well for the past 3 or 4 days. The patient had increasing shortness of breath and cough which increased over the past 2 days. The patient was also complaining of some chest pain which was vague, in the lower part of the chest and epigastrium also. There is no history of any fever, rigor or chills. No history of any sick contacts at this time. After coming to the hospital, troponin was found to be negative. The patient had an EKG which showed sinus tachycardia and nonspecific ST-T changes. A chest x-ray was also done which was reviewed personally by me. It showed evidence of bilateral lesions, right more than the left. The patient's BNP was only 270. Patient was admitted for further evaluation. There is no history of any fever, rigors, chills. PAST MEDICAL HISTORY: History of asthma, COPD, CHF, diabetes mellitus, GERD, hyperlipidemia. HOME MEDICATIONS: Ultram, Mucinex, Accolate, Coumadin, Klor-Con 20, Mevacor, Cozaar, Claritin, Synthroid, Atrovent, Humulin N, Lantus, Lasix, iron, diltiazem, Celexa, Fosamax, Ventolin, albuterol, Xanax. ALLERGIES: IODINATED CONTRAST DYE, SULFA, LATEX, PENICILLIN. FAMILY HISTORY: No history of heart disease or strokes in the family. SOCIAL HISTORY: No history of smoking. No history of alcohol intake. REVIEW OF SYSTEMS: ENT: Diminished hearing. Diminished vision. CARDIOVASCULAR SYSTEM: As mentioned earlier. RESPIRATORY SYSTEM: As mentioned earlier. GI: No nausea, vomiting. : No dysuria or retention. NERVOUS SYSTEM: No numbness, weakness. ALLERGY/IMMUNOLOGY: No asthma, hayfever. MUSCULOSKELETAL: As mentioned earlier. HEMATOLOGY/ONCOLOGY: No history of anemia. ENDOCRINE: Diabetes. CONSTITUTIONAL: As mentioned earlier. DERMATOLOGY: Negative. RHEUMATOLOGY: Negative. PSYCHIATRY: As mentioned earlier. PHYSICAL EXAMINATION: Patient alert and oriented x3. Pulse 93, blood pressure 170/71, respiration 20, temperature 98.1, pulse ox 97% on 2 L. HEENT: Conjunctivae normal. Oral mucosa moist. NECK: No jugular venous distention. No carotid bruit. No lymph node enlargement. CARDIOVASCULAR SYSTEM: S1, S2 muffled. No S3. No S4. RESPIRATORY SYSTEM: Breath sounds diminished at the bases. Bilateral scattered rhonchi and crackles. Breathing efforts are markedly increased. ABDOMEN: Soft, obese, non-tender. No mass palpable. LEGS: No edema. No swelling. NERVOUS SYSTEM: Higher functions as mentioned earlier. Moves all 4 limbs. No focal motor or sensory deficit. LYMPHATICS: No lymph node palpable in neck, axillae or groin. SKIN: No ulcer, rash, bleeding. JOINTS: No active deforming arthropathy. LABS: Labs at this time show WBC 7.2, hemoglobin 10.4, sodium 137, potassium 4.9. Creatinine is 1.14. ASSESSMENT: 1. Chronic obstructive pulmonary disease and bronchial asthma, acute exacerbation, with bibasilar pneumonia, possibly Gram-negative. 2. Atrial fibrillation, paroxysmal. 3. Chest pain, possibly musculoskeletal. 4. History of congestive heart failure; ejection fraction unknown. 5. Diabetes mellitus, type 2. 6. Gastroesophageal reflux disease. 7. Hearing defect. 8. Hypertension. 9. History of degenerative joint disease. 10.History of pneumonia. 11.Hypothyroidism. 12.History of retinal hole. 13.History of hiatal hernia. 14.Chronic hypoxic respiratory failure, on home oxygen. 15.Recent pulmonary infection with pseudomonas. 16.History of [id number] organisms. 17.History of cholecystectomy. 18.Hysterectomy. 19.History of anxiety, panic disorder. 20.Obesity with body mass index of 38.6. RECOMMENDATIONS AND DISCUSSION: In this 74-year-old woman who presented with multiple medical issues, at this time I recommend to continue current medications, continue symptomatic treatment. I would recommend broad-spectrum IV antibiotics. The troponins are negative at this time. Continue the rest of the medications. Pulmonary consultation. Broad-spectrum IV antibiotics and cultures. Prognosis guarded. Pulmonary consultation. Infectious disease evaluation. Further recommendations to follow. A copy of this dictation is being forwarded to Dr. Medrano, who is the primary physician. Bronchodilators also will be used empirically. MMODL / IJN: [id number] /
[2019-09-11 20:08] LABS: Glucose,Whole Blood 322 mg/dL (75-99)
[2019-09-11] MEDS: IPRATROPIUM-ALBUTEROL 3 ML NEB INHALATION SCH (20:16)
[2019-09-11] MEDS: SYMBICORT 160-4.5 MCG INHALER INHALATION SCH (20:16)
[2019-09-11] MEDS: POTASSIUM CHLORIDE ER 20 MEQ TAB.ER PO SCH (21:54)
[2019-09-11] MEDS: MONTELUKAST 10 MG TAB PO SCH (21:54)
[2019-09-11] MEDS: ALPRAZolam 0.5 MG TAB PO SCH (21:54)
[2019-09-12] MEDS: CEFEPIME 2 GM in SODIUM CHLORIDE 0.9% 100 ML IVPB SCH ×3 (00:15→20:24)
[2019-09-12] MEDS: methylPREDNISolone SOD SUCCI 125 MG/2 ML VIAL IV SCH ×4 (00:16→18:00)
[2019-09-12] MEDS: LEVOTHYROXINE 50 MCG TAB PO SCH (06:12)
[2019-09-12 06:51] LABS: Glucose,Whole Blood 374 mg/dL (75-99)
[2019-09-12 08:28] LABS: Prothrombin Time 10.7 sec (9.0-12.0)
[2019-09-12 08:40] LABS: Basophils % (A) 0 %; Calcium 8.2 mg/dL (8.4-10.2); Eosinophils # (A) 0.1 k/uL (0-0.7); Eosinophils % (A) 1 %; HCT 30.6 % (34.0-46.0); HGB 9.6 gm/dL (11.4-16.0); Hypochromasia Marked; Lymphocytes # (A) 0.5 k/uL (1.0-4.8); Lymphocytes % (A) 8 %; MCH 26.9 pg (25.0-35.0); MCHC 31.2 g/dL (31.0-37.0); MCV 86.3 fL (80.0-100.0); Mean Platelet Volume 7.4; Monocytes # (A) 0.1 k/uL (0-1.0); Monocytes % (A) 1 %; Neutrophils # (A) 6.1 k/uL (1.3-7.7); Neutrophils % (A) 90 %; Platelet Count 162 k/uL (150-450); Potassium 4.2 mmol/L (3.5-5.1); RBC 3.55 m/uL (3.80-5.40); RDW 15.9 % (11.5-15.5); WBC 6.8 k/uL (3.8-10.6)
[2019-09-12] MEDS: INSULIN ASPART (NovoLOG) 100 UNIT/ML VIAL SQ SCH ×5 (08:52→21:07)
[2019-09-12] MEDS: FUROSEMIDE 10 MG/ML 4 ML VIAL IV SCH ×2 (08:53→20:24)
[2019-09-12] MEDS: POTASSIUM CHLORIDE ER 20 MEQ TAB.ER PO SCH ×2 (08:53→21:07)
[2019-09-12] MEDS: LOSARTAN 50 MG TAB PO SCH (08:53)
[2019-09-12] MEDS: LORATADINE 10 MG TAB PO SCH (08:53)
[2019-09-12] MEDS: INSULIN DETEMIR (LEVEMIR) 100 UNIT/ML SYR SQ SCH (08:53)
[2019-09-12] MEDS: ATORVASTATIN 10 MG TAB PO SCH (08:54)
[2019-09-12] MEDS: CITALOPRAM HYDROBROMIDE 20 MG TAB PO SCH (08:54)
[2019-09-12] MEDS: DILTIAZEM CD 180 MG CAP.ER.24H PO SCH (08:54)
[2019-09-12] MEDS: PANTOPRAZOLE 40 MG TABLET PO SCH (08:54)
[2019-09-12] MEDS: ALPRAZolam 0.5 MG TAB PO SCH ×3 (08:54→21:07)
[2019-09-12] MEDS: FERROUS SULFATE 325 MG TAB PO SCH (08:54)
[2019-09-12] MEDS: IPRATROPIUM-ALBUTEROL 3 ML NEB INHALATION SCH ×4 (09:16→21:36)
[2019-09-12] MEDS: SYMBICORT 160-4.5 MCG INHALER INHALATION SCH ×2 (09:16→21:36)
[2019-09-12 11:01] LABS: Glucose,Whole Blood 402 mg/dL (75-99)
--- NOTE | 2019-09-12 12:10 | P.CNPUL ---
History of Present Illness Consult date: 09/12/19 Requesting physician: Nixon Gamboa Reason for consult: dyspnea, cough Chief complaint: Dyspnea, cough, wheezing, congestion History of present illness: 74-year-old patient with known history of advanced COPD/chronic bronchial asthma, moderately persistent on home oxygen at 2 L, previous history of pseudomonal pulmonary infections, history of atrial fibrillation on Coumadin, CHF unspecified, diabetes mellitus, GERD/reflux, hypertension, hypothyroidism, presented to the hospital on 09/11/2019 with complaints of 2 day history of worsening shortness of breath, cough, congestion, wheezing. Denied any chest pain or palpitations, denies any increased edema in her lower extremities, patient does have some chronic venous stasis changes and some chronic swelling in her lower extremities. Denied any fever or chills. No nausea vomiting or diarrhea. Chest x-ray reveals diffuse interstitial opacity, mild pulmonary congestion, and mild patchy opacity at the lung bases, probably related to ate lectasis. Patient sounds very congested and, coarse, and wheezy. She was started on a combination of cefepime and vancomycin for antibiotic coverage. She has not able to bring up any sputum. Her admission lab work showed white blood cell count 7.2, hemoglobin is 10.4, d-dimer was negative at 0.48, electrolytes were within normal limits, B1 is 27, creatinine is 1.14, troponin is negative at less than 0.012, LFTs are within normal limits. Patient was started on IV diuretics, IV steroids, namely bronchodilators and antibiotics. Review of Systems All systems: negative Constitutional: Denies chills, Denies fever Eyes: denies blurred vision, denies pain Ears, nose, mouth and throat: Denies headache, Denies sore throat Cardiovascular: Denies chest pain, Denies shortness of breath Respiratory: Reports congestion, Reports cough, Reports dyspnea, Reports home oxygen, Reports respiratory infections, Reports wheezing Gastrointestinal: Denies abdominal pain, Denies diarrhea, Denies nausea, Denies vomiting Genitourinary: Denies dysuria, Denies hematuria Musculoskeletal: Denies myalgias Integumentary: Denies pruritus, Denies rash Neurological: Denies numbness, Denies weakness Psychiatric: Denies anxiety, Denies depression Endocrine: Denies fatigue, Denies weight change Past Medical History Past Medical History: Atrial Fibrillation, Asthma, Heart Failure, COPD, Diabetes Mellitus, GERD/Reflux, Hearing Disorder / Deafness, Hypertension, Osteoarthritis (OA), Pneumonia, Renal Disease, Thyroid Disorder Additional Past Medical History / Comment(s): HOLE IN RIGHT RETINA. hiatal hernia, anemia, chronic hypoxic respiratory failure, recent pulmonary infection with pseudomonas aeruginosa confirmed via bronchoscopy and the lavage History of Any Multi-Drug Resistant Organisms: Other MDRO Past Surgical History: Cholecystectomy, Hysterectomy Additional Past Surgical History / Comment(s): CATARACT REMOVAL LEFT EYE. Past Anesthesia/Blood Transfusion Reactions: No Reported Reaction Past Psychological History: Anxiety, Panic Disorder Smoking Status: Never smoker Past Alcohol Use History: None Reported Past Drug Use History: None Reported - Past Family History Mother Family Medical History: No Reported History Medications and Allergies Home Medications Medication Instructions Recorded Confirmed Type ALPRAZolam [Xanax] 0.5 mg PO TID 01/16/19 09/11/19 History Alendronate Sodium [Fosamax] 70 mg PO FR 01/16/19 09/11/19 History Citalopram Hydrobromide 40 mg PO DAILY 01/16/19 09/11/19 History [Citalopram HBr] Diltiazem HCl [Diltiazem HCl 24Hr 180 mg PO DAILY 01/16/19 09/11/19 History ER] Furosemide [Lasix] 40 mg PO DAILY 01/16/19 09/11/19 History Ipratropium Nebulized [Atrovent 0.5 mg INHALATION RT-QID 01/16/19 09/11/19 History Nebulized 0.2 MG/ML] Levothyroxine Sodium [Synthroid] 50 mcg PO DAILY 01/16/19 09/11/19 History Losartan [Cozaar] 50 mg PO DAILY 01/16/19 09/11/19 History Lovastatin [Mevacor] 40 mg PO DAILY 01/16/19 09/11/19 History Potassium Chloride [Klor-Con 20] 20 meq PO BID 01/16/19 09/11/19 History Zafirlukast [Accolate] 20 mg PO BID 01/16/19 09/11/19 History traMADol HCL 50 mg PO TID PRN 01/16/19 09/11/19 History Albuterol Nebulized [Ventolin 2.5 mg INHALATION RT-Q6H 04/26/19 09/11/19 History Nebulized] Insulin Glargine [Lantus] 30 unit SQ DAILY 06/28/19 09/11/19 History Warfarin Sodium [Coumadin] 5 mg PO HS 06/28/19 09/11/19 History Albuterol Sulfate [Ventolin HFA] 1 - 2 puff INHALATION RT-Q6H PRN 08/07/19 09/11/19 History Loratadine [Claritin] 10 mg PO DAILY 08/07/19 09/11/19 History Ferrous Sulfate [Iron (65 MG 325 mg PO DAILY #30 tab 08/10/19 09/11/19 Rx Elemental)] guaiFENesin [Mucinex] 600 mg PO Q12HR PRN #14 tablet.er 08/10/19 09/11/19 Rx Insulin Regular, Human [NovoLIN R] See Protocol SQ ACHS MDD 30 UNITS 09/11/19 09/11/19 History Allergies Allergy/AdvReac Type Severity Reaction Status Date / Time Iodinated Contrast Media Allergy Unknown, Verified 09/11/19 12:41 POOR RENAL FUNCTIONS Sulfa (Sulfonamide Allergy Unknown Verified 09/11/19 12:41 Antibiotics) latex AdvReac Rash/Hives Verified 09/11/19 12:41 Penicillins AdvReac Rash/Hives Verified 09/11/19 12:41 Physical Exam Vitals: Vital Signs Temp Pulse Pulse Pulse Resp BP BP 09/12/19 11:12 98.1 F 98 18 137/68 09/12/19 09:29 92 09/12/19 09:17 88 09/12/19 05:00 98.0 F 96 20 159/75 09/11/19 20:27 96 09/11/19 20:18 96 09/11/19 20:00 98.0 F 96 20 166/70 09/11/19 17:10 98.1 F 95 17 164/74 09/11/19 16:47 97 20 149/72 09/11/19 15:47 98.1 F 93 20 170/71 09/11/19 15:45 96/42 09/11/19 14:55 92 22 158/57 09/11/19 13:47 86 24 09/11/19 13:37 87 09/11/19 13:03 82 28 H 09/11/19 12:54 87 32 H 09/11/19 12:35 98.5 F 94 22 181/64 Pulse Ox 09/12/19 11:12 96 09/12/19 09:29 09/12/19 09:17 09/12/19 05:00 98 09/11/19 20:27 09/11/19 20:18 09/11/19 20:00 97 09/11/19 17:10 95 09/11/19 16:47 99 09/11/19 15:47 97 09/11/19 15:45 09/11/19 14:55 99 09/11/19 13:47 09/11/19 13:37 09/11/19 13:03 09/11/19 12:54 09/11/19 12:35 98 Intake and Output 09/11/19 09/12/19 09/12/19 22:59 06:59 14:59 Intake Total 1020 100 Balance 1020 100 Intake: IV 100 Cefepime 2 gm In Sodium 100 Chloride 0.9% 100 ml @ 200 mls/hr IVPB Q8HR JS Rx#:[id number] Intake, IV Titration 600 Amount Cefepime 2 gm In Sodium 100 Chloride 0.9% 100 ml @ 200 mls/hr IVPB Q8HR JS Rx#:[id number] Vancomycin 1,750 mg In 500 Sodium Chloride 0.9% 500 ml 500 ml @ 167 mls/hr IVPB ONCE ONE Rx#: [id number] Oral 420 Other: Voiding Method Bedside Commode # Voids 1 3 Weight 106.5 kg 105 kg GENERAL EXAM: Alert, very pleasant, 74-year-old white female, on 2 L of oxygen with a pulse ox of 96-98%, comfortable in no apparent distress. HEAD: Normocephalic/atraumatic. EYES: Normal reaction of pupils, equal size. Conjunctiva pink, sclera white. NOSE: Clear with pink turbinates. THROAT: No erythema or exudates. NECK: No masses, no JVD, no thyroid enlargement, no adenopathy. CHEST: No chest wall deformity. Symmetrical expansion. LUNGS: Equal air entry with diffuse wheezes and rhonchi CVS: Regular rate and rhythm, normal S1 and S2, no gallops, no murmurs, no rubs ABDOMEN: Soft, nontender. No hepatosplenomegaly, normal bowel sounds, no guarding or rigidity. EXTREMITIES: No clubbing, chronic venous stasis changes involving lower extremities, and mild pretibial edema, no cyanosis, 2+ pulses and upper and lower extremities. MUSCULOSKELETAL: Muscle strength and tone normal. SPINE: No scoliosis or deformity SKIN: No rashes CENTRAL NERVOUS SYSTEM: Alert and oriented -3. No focal deficits, tone is normal in all 4 extremities. PSYCHIATRIC: Alert and oriented -3. Appropriate affect. Intact judgment and insight. Results - Laboratory Findings CBC and BMP: 09/12/19 06:17 09/12/19 06:17 PT/INR, D-dimer PT 10.7 sec (9.0-12.0) 09/12/19 06:17 INR 1.0 (<1.2) 09/12/19 06:17 D-Dimer 0.48 mg/L FEU (<0.60) 09/11/19 12:49 Abnormal lab findings: Abnormal Labs 09/11/19 09/11/19 09/11/19 12:49 12:49 17:39 RBC Hgb 10.4 L Hct 32.5 L RDW 15.9 H Lymphocytes # BUN 27 H Creatinine 1.14 H Glucose 164 H POC Glucose (mg/dL) 247 H Calcium 09/11/19 09/12/19 09/12/19 20:06 06:17 06:17 RBC 3.55 L Hgb 9.6 L Hct 30.6 L RDW 15.9 H Lymphocytes # 0.5 L BUN 33 H Creatinine 1.23 H Glucose 336 H POC Glucose (mg/dL) 322 H Calcium 8.2 L 09/12/19 09/12/19 06:49 11:00 RBC Hgb Hct RDW Lymphocytes # BUN Creatinine Glucose POC Glucose (mg/dL) 374 H 402 H Calcium - Diagnostic Findings Chest x-ray: report reviewed, image reviewed Additional studies: EKG reviewed Assessment and Plan Plan: Assessment: #1. Acute exacerbation of COPD/chronic bronchial asthma, moderately persistent, with tracheobronchitis, possibly related to Pseudomonas. Chest x-ray shows diffuse interstitial opacity, mild pulmonary vascular congestion, and mild patchy opacity at the lung bases, probably related to atelectasis. Patient has previous history of recurrent pseudomonal infections. #2. Chronic hypoxic respiratory failure related to advanced COPD #3. 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 Diabetes mellitus type 2 #5. Paroxysmal atrial fibrillation on Coumadin, current rhythm is sinus, patient is on Coumadin 5 mg daily, admission INR subtherapeutic at 1.0 #6. Chronic kidney disease, stage II #7. Hypertension #8. Osteoarthritis #9. Hypothyroidism #10. Coarse interstitial changes present on the chest x-ray rule out underlying fibrosis/scarring Plan: Continue current antibiotics, obtain a sputum culture, continue IV steroids, nebulized bronchodilators. Patient is on her home dose O2 at 2 L, she still sounds quite wheezy and congested. Renal profile slightly worsened on today's exam, chest x-ray has been reviewed and patient does have some chronic course interstitial changes possibly related to underlying fibrosis/scarring. Recommend cutting back the IV Lasix to once daily. Follow-up electrolytes and renal profile in the morning. Continue Mucinex, continue Coumadin, Singulair. Daily weight, including intake and output. COVID 19 PCR is pending. We'll continue to follow I performed a history & physical examination of the patient and discussed their management with my nurse practitioner, Maryjo Parisi. I reviewed the nurse practitioner's note and agree with the documented findings and plan of care. Lung sounds are positive for diffuse wheezes throughout the lung carrera. The findings and the impression was discussed with the patient. I attest to the documentation by the nurse practitioner. Time with Patient: Greater than 30
[2019-09-12] MEDS ORDERED: VANCOMYCIN 1,750 MG in SODIUM CHLORIDE 0.9% 500 ML 500 ML IVPB SCH (17:00)
[2019-09-12 17:14] LABS: Glucose,Whole Blood 266 mg/dL (75-99)
[2019-09-12] MEDS: WARFARIN 5 MG TAB PO SCH (18:00)
[2019-09-12 20:07] LABS: Glucose,Whole Blood 411 mg/dL (75-99)
[2019-09-12] MEDS ORDERED: INSULIN DETEMIR (LEVEMIR) 100 UNIT/ML SYR SQ ONE (20:40)
[2019-09-12] MEDS ORDERED: INSULIN ASPART (NovoLOG) 100 UNIT/ML VIAL SQ ONE (20:45)
[2019-09-12] MEDS: MONTELUKAST 10 MG TAB PO SCH (21:07)
[2019-09-13] MEDS: methylPREDNISolone SOD SUCCI 125 MG/2 ML VIAL IV SCH ×2 (00:08→06:20)
[2019-09-13] MEDS: LEVOTHYROXINE 50 MCG TAB PO SCH (06:19)
[2019-09-13 07:06] LABS: Glucose,Whole Blood 329 mg/dL (75-99)
[2019-09-13] MEDS: INSULIN DETEMIR (LEVEMIR) 100 UNIT/ML SYR SQ SCH (07:49)
[2019-09-13] MEDS: CITALOPRAM HYDROBROMIDE 20 MG TAB PO SCH (07:50)
[2019-09-13] MEDS: INSULIN ASPART (NovoLOG) 100 UNIT/ML VIAL SQ SCH ×4 (07:50→20:06)
[2019-09-13] MEDS: LOSARTAN 50 MG TAB PO SCH (07:50)
[2019-09-13] MEDS: POTASSIUM CHLORIDE ER 20 MEQ TAB.ER PO SCH ×2 (07:51→20:06)
[2019-09-13] MEDS: ALPRAZolam 0.5 MG TAB PO SCH ×3 (07:51→22:22)
[2019-09-13] MEDS: FERROUS SULFATE 325 MG TAB PO SCH (07:51)
[2019-09-13] MEDS: ATORVASTATIN 10 MG TAB PO SCH (07:51)
[2019-09-13] MEDS: PANTOPRAZOLE 40 MG TABLET PO SCH (07:51)
[2019-09-13] MEDS: FUROSEMIDE 10 MG/ML 4 ML VIAL IV SCH (07:52)
[2019-09-13] MEDS: DILTIAZEM CD 180 MG CAP.ER.24H PO SCH (07:52)
[2019-09-13] MEDS: CEFEPIME 2 GM in SODIUM CHLORIDE 0.9% 100 ML IVPB SCH ×2 (07:54→20:07)
[2019-09-13] MEDS: LORATADINE 10 MG TAB PO SCH (07:54)
[2019-09-13 07:57] LABS: Anisocytosis Slight; Basophils % (A) 0 %; Eosinophils # (A) 0.1 k/uL (0-0.7); Eosinophils % (A) 1 %; HCT 28.4 % (34.0-46.0); HGB 9.3 gm/dL (11.4-16.0); Hypochromasia Moderate; Lymphocytes # (A) 0.7 k/uL (1.0-4.8); Lymphocytes % (A) 5 %; MCH 27.9 pg (25.0-35.0); MCHC 32.8 g/dL (31.0-37.0); Mean Platelet Volume 7.2; Monocytes # (A) 0.3 k/uL (0-1.0); Monocytes % (A) 2 %; Neutrophils # (A) 11.9 k/uL (1.3-7.7); Neutrophils % (A) 92 %; Platelet Count 160 k/uL (150-450); RBC 3.34 m/uL (3.80-5.40); RDW 16.3 % (11.5-15.5); WBC 12.9 k/uL (3.8-10.6)
[2019-09-13] MEDS: SYMBICORT 160-4.5 MCG INHALER INHALATION SCH ×2 (07:57→19:15)
[2019-09-13] MEDS: IPRATROPIUM-ALBUTEROL 3 ML NEB INHALATION SCH ×4 (07:57→19:15)
[2019-09-13 08:01] LABS: INR 1.2 (<1.2); Prothrombin Time 11.8 sec (9.0-12.0)
[2019-09-13 08:29] LABS: Potassium 4.3 mmol/L (3.5-5.1)
--- NOTE | 2019-09-13 08:43 | P.PN ---
Subjective Progress Note Date: 09/12/19 Principal diagnosis: This is a 74-year-old female who was recently admitted with Increasing shortness of breath along with some chest pain in the lower part of the chest and epigas trium and is being closely monitored. Patient has a history of multiple medical problems with COPD, CHF, diabetes mellitus, hypertension, with history of pneumonia in the past. Patient continues to be quite dyspneic with exertion and is currently maintained on 2-3 L of oxygen via nasal cannula. She is oxygen dependent in the outpatient setting. Patient has been having difficulty making elderly to the bathroom due to severe dyspnea and has been using the bedside commode. Patient also Continues to be quite wheezy on exam and is currently maintained on IV steroids along with bronchodilators. Pulmonary is following. Infectious disease was consulted and currently pending at this time. Patient is maintained on IV antibiotics in the form of cefepime and will continue at this time. Review of systems: Constitutional: No reports of fatigue, fevers, or chills Cardiovascular: No reports of chest pain or palpitations Respiratory: Report shortness of breath with exertion, reports cough GI: No reports of nausea, vomiting, or diarrhea : No reports of dysuria or retention Neurovascular: No reports of weakness or numbness Active Medications Albuterol/Ipratropium (Duoneb 0.5 Mg-3 Mg/3 Ml Soln) 3 ml INHALATION RT-Q4H PRN PRN Reason: Shortness Of Breath Or Wheezing Albuterol/Ipratropium (Duoneb 0.5 Mg-3 Mg/3 Ml Soln) 3 ml INHALATION RT-QID JS Alprazolam (Xanax) 0.5 mg PO TID JS Atorvastatin Calcium (Lipitor) 10 mg PO DAILY JS Budesonide/Formoterol Fumarate (Symbicort 160-4.5 Mcg Inhaler) 2 puff INHALATION RT-BID JS Citalopram Hydrobromide (Celexa) 40 mg PO DAILY JS Diltiazem HCl (Cardizem Cd) 180 mg PO DAILY JS Ferrous Sulfate (Feosol) 325 mg PO DAILY JS Furosemide (Lasix) 40 mg IV Q12HR JS Guaifenesin (Mucinex) 600 mg PO Q12HR PRN PRN Reason: Cough Cefepime HCl 2 gm/ Sodium (Chloride) 100 mls @ 200 mls/hr IVPB Q12HR JS Insulin Aspart (Novolog) 0 unit SQ ACHS [facility]; Protocol Insulin Detemir (Levemir) 30 unit SQ DAILY [facility] Levothyroxine Sodium (Synthroid) 50 mcg PO DAILY@0630 [facility] Loratadine (Claritin) 10 mg PO DAILY [facility] Losartan Potassium (Cozaar) 50 mg PO DAILY [facility] Methylprednisolone Sodium Succinate (Solu-Medrol) 60 mg IV Q6HR [facility] Miscellaneous Information (Coumadin Per Pharmacy) 0 each MISCELLANE DIRECTED PRN PRN Reason: PHARMACY DOSING PROTOCOL Montelukast Sodium (Singulair) 10 mg PO HS JS Pantoprazole Sodium (Protonix) 40 mg PO AC-BRKFST JS Potassium Chloride (K-Dur 20) 20 meq PO BID JS Tramadol HCl (Ultram) 50 mg PO TID PRN PRN Reason: Pain Warfarin Sodium (Coumadin) 5 mg PO DAILY@1800 [facility]; Protocol Objective - Vital Signs Vital signs: Vital Signs Temp 97.6 F 09/13/19 05:00 Pulse 92 09/13/19 07:59 Resp 20 09/13/19 05:00 BP 137/68 09/13/19 05:00 Pulse Ox 97 09/13/19 05:00 Intake & Output 09/12/19 09/13/19 09/13/19 18:59 06:59 18:59 Intake Total 1280 Balance 1280 Weight 105 kg Intake: Intake, IV Titration 100 Amount Cefepime 2 gm In Sodium 100 Chloride 0.9% 100 ml @ 200 mls/hr IVPB Q12HR [facility] Rx#:[id number] Oral 1180 Other: Voiding Method Bedside Commode Bedside Commode # Voids 3 2 - Exam Gen: This is a 74-year-old female sitting up at the side of the bed, awake, alert and oriented 3, well-developed, well-nourished. Temp is 98.1F, pulse is 98, respirations are 18, blood pressure is 137/68, oxygen saturation is 96% on 2 L via nasal cannula HEENT: Head is atraumatic, normocephalic. Pupils equal, round. Sclerae is anicteric. NECK: Supple. No JVD. No lymphadenopathy. No thyromegaly. LUNGS: Diminished breath sounds bilaterally with some scattered rhonchi noted. Expiratory wheezing noted on exam as well. No intercostal retractions. HEART: S1, S2 are muffled. ABDOMEN: Soft. Bowel sounds are present. No masses. No tenderness. EXTREMITIES: No pedal edema. No calf tenderness. NEUROLOGICAL: Patient is awake, alert and oriented x3. Cranial nerves 2 through 12 are grossly intact. - Labs CBC & Chem 7: 09/13/19 06:33 09/12/19 06:17 Labs: Abnormal Lab Results - Last 24 Hours (Table) 09/12/19 09/12/19 09/12/19 Range/Units 06:17 06:17 11:00 WBC (3.8-10.6) k/uL RBC 3.55 L (3.80-5.40) m/uL Hgb 9.6 L (11.4-16.0) gm/dL Hct 30.6 L (34.0-46.0) % RDW 15.9 H (11.5-15.5) % Neutrophils # (1.3-7.7) k/uL Lymphocytes # 0.5 L (1.0-4.8) k/uL INR (<1.2) BUN 33 H (7-17) mg/dL Creatinine 1.23 H (0.52-1.04) mg/dL Glucose 336 H (74-99) mg/dL POC Glucose (mg/dL) 402 H (75-99) mg/dL Calcium 8.2 L (8.4-10.2) mg/dL 09/12/19 09/12/19 09/13/19 Range/Units 17:12 20:05 06:33 WBC 12.9 H (3.8-10.6) k/uL RBC 3.34 L (3.80-5.40) m/uL Hgb 9.3 L (11.4-16.0) gm/dL Hct 28.4 L (34.0-46.0) % RDW 16.3 H (11.5-15.5) % Neutrophils # 11.9 H (1.3-7.7) k/uL Lymphocytes # 0.7 L (1.0-4.8) k/uL INR (<1.2) BUN (7-17) mg/dL Creatinine (0.52-1.04) mg/dL Glucose (74-99) mg/dL POC Glucose (mg/dL) 266 H 411 H (75-99) mg/dL Calcium (8.4-10.2) mg/dL 09/13/19 09/13/19 Range/Units 06:33 07:04 WBC (3.8-10.6) k/uL RBC (3.80-5.40) m/uL Hgb (11.4-16.0) gm/dL Hct (34.0-46.0) % RDW (11.5-15.5) % Neutrophils # (1.3-7.7) k/uL Lymphocytes # (1.0-4.8) k/uL INR 1.2 H (<1.2) BUN (7-17) mg/dL Creatinine (0.52-1.04) mg/dL Glucose (74-99) mg/dL POC Glucose (mg/dL) 329 H (75-99) mg/dL Calcium (8.4-10.2) mg/dL Microbiology - Last 24 Hours (Table) 09/12/19 09:23 Gram Stain - Preliminary Sputum Sputum Culture - Preliminary 09/11/19 17:15 Blood Culture - Preliminary Blood No Growth after 24 hours Assessment and Plan Assessment: Chronic obstructive pulmonary disease and bronchial asthma, acute exacerbation, with by basilar pneumonia, possibly gram-negative Paroxysmal atrial fibrillation Chest pain, possibly musculoskeletal History of congestive heart failure; ejection fraction unknown Diabetes mellitus type 2 Gastroesophageal reflux disease Hearing deficit Hypertension History of degenerative joint disease History of pneumonia Hypothyroidism History of retinal hole History of hiatal hernia Chronic hypoxic respiratory failure, on home oxygen Recent pulmonary infection with Pseudomonas History of multidrug-resistant organisms History of cholecystectomy Hysterectomy History of anxiety, panic disorder Obesity with a body mass index of 38.6 Recommendations and discussion: Recommend to continue current medications, management, and symptomatic treatment. Pulmonary following closely. Patient is maintained on b ronchodilators and IV steroids and will continue at this time. Blood sugars continue to be elevated and will continue to monitor closely and titrate insulins as needed. Patient to increase activity as tolerated. Blood cultures remain negative. Sputum cultures preliminary showing moderate gram-negative bacilli with rare gram-positive cocci and will await finalization of cultures. Infectious disease was consulted and pending at this time. Will repeat a.m. labs and monitor vital signs closely. Patient is maintained on IV Lasix although creatinine slightly elevated at 1.23.
--- NOTE | 2019-09-13 11:28 | P.PN ---
Subjective Progress Note Date: 09/13/19 Principal diagnosis: Dyspnea, cough, wheezing and congestion 74-year-old patient with known history of advanced COPD/chronic bronchial asthma, moderately persistent on home oxygen at 2 L, previous history of pseudomonal pulmonary infections, history of atrial fibrillation on Coumadin, CHF unspecified, diabetes mellitus, GERD/reflux, hypertension, hypothyroidism, presented to the hospital on 09/11/2019 with complaints of 2 day history of worsening shortness of breath, cough, congestion, wheezing. Denied any chest pain or palpitations, denies any increased edema in her lower extremities, patient does have some chronic venous stasis changes and some chronic swelling in her lower extremities. Denied any fever or chills. No nausea vomiting or diarrhea. Chest x-ray reveals diffuse interstitial opacity, mild pulmonary congestion, and mild patchy opacity at the lung bases, probably related to atelectasis. Patient sounds very congested and, coarse, and wheezy. She was started on a combination of cefepime and vancomycin for antibiotic coverage. She has not able to bring up any sputum. Her admission lab work showed white blood cell count 7.2, hemoglobin is 10.4, d-dimer was negative at 0.48, electrolytes were within normal limits, B1 is 27, creatinine is 1.14, troponin is negative at less than 0.012, LFTs are within normal limits. Patient was started on IV diuretics, IV steroids, namely bronchodilators and antibiotics. On 09/13/2019 patient seen in follow-up on general medical oncology floor, she still required bronchospastic and congested, not bringing up much sputum, she remains on 2 L of oxygen with a pulse ox 97%, she does become dyspneic with exe rtion, but does not appear to be in any acute distress, she continues on cefepime for empiric antibiotic coverage, she also developed significant steroid-induced hyperglycemia with blood sugar in the 300s. She is currently on IV Solu-Medrol 60 mg every 6 hours, and nebulized bronchodilators, which can taper the dose of steroids down, and switch her to oral Decadron. Sputum culture was sent, showing moderate epithelial cells, moderate gram-negative bacilli and rare gram-positive cocci. Blood culture has shown no growth. Objective - Vital Signs Vital signs: Vital Signs Temp 97.6 F 09/13/19 05:00 Pulse 92 09/13/19 07:59 Resp 20 09/13/19 05:00 BP 137/68 09/13/19 05:00 Pulse Ox 97 09/13/19 05:00 Intake & Output 09/12/19 09/13/19 09/13/19 18:59 06:59 18:59 Intake Total 1280 240 Balance 1280 240 Weight 105 kg Intake: Intake, IV Titration 100 Amount Cefepime 2 gm In Sodium 100 Chloride 0.9% 100 ml @ 200 mls/hr IVPB Q12HR [facility] Rx#:[id number] Oral 1180 240 Other: Voiding Method Bedside Commode Bedside Commode Bedside Commode # Voids 3 2 - Exam GENERAL EXAM: Alert, very pleasant, 74-year-old white female, on 2 L of oxygen with a pulse ox of 96-98%, comfortable in no apparent distress. HEAD: Normocephalic/atraumatic. EYES: Normal reaction of pupils, equal size. Conjunctiva pink, sclera white. NOSE: Clear with pink turbinates. THROAT: No erythema or exudates. NECK: No masses, no JVD, no thyroid enlargement, no adenopathy. CHEST: No chest wall deformity. Symmetrical expansion. LUNGS: Equal air entry with diffuse wheezes and rhonchi CVS: Regular rate and rhythm, normal S1 and S2, no gallops, no murmurs, no rubs ABDOMEN: Soft, nontender. No hepatosplenomegaly, normal bowel sounds, no guarding or rigidity. EXTREMITIES: No clubbing, chronic venous stasis changes involving lower extremities, and mild pretibial edema, no cyanosis, 2+ pulses and upper and lower extremities. MUSCULOSKELETAL: Muscle strength and tone normal. SPINE: No scoliosis or deformity SKIN: No rashes CENTRAL NERVOUS SYSTEM: Alert and oriented -3. No focal deficits, tone is normal in all 4 extremities. PSYCHIATRIC: Alert and oriented -3. Appropriate affect. Intact judgment and insight. - Labs CBC & Chem 7: 09/13/19 06:33 09/13/19 06:33 Labs: Abnormal Lab Results - Last 24 Hours (Table) 09/12/19 09/12/19 09/13/19 Range/Units 17:12 20:05 06:33 WBC 12.9 H (3.8-10.6) k/uL RBC 3.34 L (3.80-5.40) m/uL Hgb 9.3 L (11.4-16.0) gm/dL Hct 28.4 L (34.0-46.0) % RDW 16.3 H (11.5-15.5) % Neutrophils # 11.9 H (1.3-7.7) k/uL Lymphocytes # 0.7 L (1.0-4.8) k/uL INR (<1.2) BUN (7-17) mg/dL Creatinine (0.52-1.04) mg/dL Glucose (74-99) mg/dL POC Glucose (mg/dL) 266 H 411 H (75-99) mg/dL Calcium (8.4-10.2) mg/dL 09/13/19 09/13/19 09/13/19 Range/Units 06:33 06:33 07:04 WBC (3.8-10.6) k/uL RBC (3.80-5.40) m/uL Hgb (11.4-16.0) gm/dL Hct (34.0-46.0) % RDW (11.5-15.5) % Neutrophils # (1.3-7.7) k/uL Lymphocytes # (1.0-4.8) k/uL INR 1.2 H (<1.2) BUN 42 H (7-17) mg/dL Creatinine 1.37 H (0.52-1.04) mg/dL Glucose 307 H (74-99) mg/dL POC Glucose (mg/dL) 329 H (75-99) mg/dL Calcium 8.0 L (8.4-10.2) mg/dL Microbiology - Last 24 Hours (Table) 09/12/19 09:23 Gram Stain - Preliminary Sputum Sputum Culture - Preliminary 09/11/19 17:15 Blood Culture - Preliminary Blood No Growth after 24 hours Assessment and Plan Plan: Assessment: #1. Acute exacerbation of COPD/chronic bronchial asthma, moderately persistent, with tracheobronchitis, possibly related to Pseudomonas. Chest x-ray shows diffuse interstitial opacity, mild pulmonary vascular congestion, and mild patchy opacity at the lung bases, probably related to atelectasis. Patient has previous history of recurrent pseudomonal infections. #2. Chronic hypoxic respiratory failure related to advanced COPD #3. 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 Diabetes mellitus type 2 #5. Paroxysmal atrial fibrillation on Coumadin, current rhythm is sinus, patient is on Coumadin 5 mg daily, admission INR subtherapeutic at 1.0 #6. Chronic kidney disease, stage II #7. Hypertension #8. Osteoarthritis #9. Hypothyroidism #10. Coarse interstitial changes present on the chest x-ray rule out underlying fibrosis/scarring #11. Steroid-induced hyperglycemia Plan: Continue same antibiotics, will await the results of the sputum culture, we'll switch the IV steroids to Decadron 4 mg every 12 hours in view of significant steroid-induced hyperglycemia, patient is still quite bronchospastic and congested, will require another 48 hours of inpatient treatment. Patient has wo rsening renal function on today's labs, we'll switch the IV Lasix to oral Lasix 40 mg twice daily starting tomorrow. COVID was not detected I performed a history & physical examination of the patient and discussed their management with my nurse practitioner, Maryjo Parisi. I reviewed the nurse pr actitioner's note and agree with the documented findings and plan of care. Lung sounds are positive for diffuse wheezes throughout the lung carrera. The findings and the impression was discussed with the patient. I attest to the documentation by the nurse practitioner. Time with Patient: Less than 30
[2019-09-13 11:47] LABS: Glucose,Whole Blood 352 mg/dL (75-99)
[2019-09-13] MEDS: DEXAMETHASONE SOD PHOSPHATE 4 MG/ML 1 ML VIAL IV SCH ×2 (12:09→22:23)
--- NOTE | 2019-09-13 14:10 | P.CONS ---
History of Present Illness - Reason for Consult Consult date: 09/12/19 pseudomonas pneumonia Requesting physician: Nixon Gamboa - Chief Complaint shortness of breath and cough x 1 week - History of Present Illness Patient is a 74-year female with a past medical history significant for COPD previous history of Pseudomonas pneumonia in this patient presented to hospital yesterday with chief complaints of increasing shortness of breath that has been going on for about a week before she presented to hospital patient denies having any URI symptom the patient also have associated cough which is moderate in intensity and is bringing up some yellowish to greenish sputum no hemoptysis no pleuritic chest pain did have some chills denies high-grade fever patient on arrival to the ER has been afebrile patient did have a normal white count 7.2 patient did have a chest x-ray which did shows a borderline cardiomegaly diffuse interstitial opacity correlate for bronchitis atypical pneumonias mild patient visited lung bases because of her history of Pseudomonas pneumonias patient has been started on cefepime 2 g every 12 hours infectious disease consulted for further management of antibiotic therapy. Review of Systems Positive point has been mentioned HPI rest of the systems negative Past Medical History Past Medical History: Atrial Fibrillation, Asthma, Heart Failure, COPD, Diabetes Mellitus, GERD/Reflux, Hearing Disorder / Deafness, Hypertension, Osteoarthritis (OA), Pneumonia, Renal Disease, Thyroid Disorder Additional Past Medical History / Comment(s): HOLE IN RIGHT RETINA. hiatal hernia, anemia, chronic hypoxic respiratory failure, recent pulmonary infection with pseudomonas aeruginosa confirmed via bronchoscopy and the lavage History of Any Multi-Drug Resistant Organisms: Other MDRO Past Surgical History: Cholecystectomy, Hysterectomy Additional Past Surgical History / Comment(s): CATARACT REMOVAL LEFT EYE. Past Anesthesia/Blood Transfusion Reactions: No Reported Reaction Past Psychological History: Anxiety, Panic Disorder Smoking Status: Never smoker Past Alcohol Use History: None Reported Past Drug Use History: None Reported - Past Family History Mother Family Medical History: No Reported History Medications and Allergies Home Medications Medication Instructions Recorded Confirmed Type ALPRAZolam [Xanax] 0.5 mg PO TID 01/16/19 09/11/19 History Alendronate Sodium [Fosamax] 70 mg PO FR 01/16/19 09/11/19 History Citalopram Hydrobromide 40 mg PO DAILY 01/16/19 09/11/19 History [Citalopram HBr] Diltiazem HCl [Diltiazem HCl 24Hr 180 mg PO DAILY 01/16/19 09/11/19 History ER] Furosemide [Lasix] 40 mg PO DAILY 01/16/19 09/11/19 History Ipratropium Nebulized [Atrovent 0.5 mg INHALATION RT-QID 01/16/19 09/11/19 History Nebulized 0.2 MG/ML] Levothyroxine Sodium [Synthroid] 50 mcg PO DAILY 01/16/19 09/11/19 History Losartan [Cozaar] 50 mg PO DAILY 01/16/19 09/11/19 History Lovastatin [Mevacor] 40 mg PO DAILY 01/16/19 09/11/19 History Potassium Chloride [Klor-Con 20] 20 meq PO BID 01/16/19 09/11/19 History Zafirlukast [Accolate] 20 mg PO BID 01/16/19 09/11/19 History traMADol HCL 50 mg PO TID PRN 01/16/19 09/11/19 History Albuterol Nebulized [Ventolin 2.5 mg INHALATION RT-Q6H 04/26/19 09/11/19 History Nebulized] Insulin Glargine [Lantus] 30 unit SQ DAILY 06/28/19 09/11/19 History Warfarin Sodium [Coumadin] 5 mg PO HS 06/28/19 09/11/19 History Albuterol Sulfate [Ventolin HFA] 1 - 2 puff INHALATION RT-Q6H PRN 08/07/19 09/11/19 History Loratadine [Claritin] 10 mg PO DAILY 08/07/19 09/11/19 History Ferrous Sulfate [Iron (65 MG 325 mg PO DAILY #30 tab 08/10/19 09/11/19 Rx Elemental)] guaiFENesin [Mucinex] 600 mg PO Q12HR PRN #14 tablet.er 08/10/19 09/11/19 Rx Insulin Regular, Human [NovoLIN R] See Protocol SQ ACHS MDD 30 UNITS 09/11/19 09/11/19 History Allergies Allergy/AdvReac Type Severity Reaction Status Date / Time Iodinated Contrast Media Allergy Unknown, Verified 09/11/19 12:41 POOR RENAL FUNCTIONS Sulfa (Sulfonamide Allergy Unknown Verified 09/11/19 12:41 Antibiotics) latex AdvReac Rash/Hives Verified 09/11/19 12:41 Penicillins AdvReac Rash/Hives Verified 09/11/19 12:41 Physical Exam Vitals: Vital Signs Temp Pulse Pulse Pulse Resp BP BP 09/12/19 13:04 84 09/12/19 12:48 80 09/12/19 11:12 98.1 F 98 18 137/68 09/12/19 09:29 92 09/12/19 09:17 88 09/12/19 08:00 89 18 09/12/19 05:00 98.0 F 96 20 159/75 09/11/19 20:27 96 09/11/19 20:18 96 09/11/19 20:00 98.0 F 96 20 166/70 09/11/19 17:10 98.1 F 95 17 164/74 09/11/19 16:47 97 20 149/72 09/11/19 15:47 98.1 F 93 20 170/71 09/11/19 15:45 96/42 Pulse Ox 09/12/19 13:04 09/12/19 12:48 09/12/19 11:12 96 09/12/19 09:29 09/12/19 09:17 09/12/19 08:00 09/12/19 05:00 98 09/11/19 20:27 09/11/19 20:18 09/11/19 20:00 97 09/11/19 17:10 95 09/11/19 16:47 99 09/11/19 15:47 97 09/11/19 15:45 Intake and Output 09/12/19 09/12/19 09/12/19 06:59 14:59 22:59 Intake Total 100 Balance 100 Intake: IV 100 Cefepime 2 gm In Sodium 100 Chloride 0.9% 100 ml @ 200 mls/hr IVPB Q8HR [facility] Rx#:[id number] Other: Voiding Method Bedside Commode Bedside Commode # Voids 3 Weight 105 kg GENERAL DESCRIPTION: Elderly female lying in bed, no distress. No tachypnea or accessory muscle of respiration use. HEENT: Shows Pallor , no scleral icterus. Oral mucous membrane is dry. No pharyngeal erythema or thrush NECK: Trachea central, no thyromegaly. LUNGS: Unlabored breathing. Coarse breath sound bilaterally with wheeze hEART: S1, S2, regular rate and rhythm. No loud murmur ABDOMEN: Soft, no tenderness , guarding or rigidity, no organomegaly EXTREMITIES: No edema of feet. SKIN: No rash, no masses palpable. NEUROLOGICAL: The patient is awake, alert, oriented x3, mood and affect normal. Results CBC & Chem 7: 09/13/19 06:33 09/13/19 06:33 Labs: Abnormal Lab Results - Last 24 Hours (Table) 09/11/19 09/11/19 09/12/19 Range/Units 17:39 20:06 06:17 RBC 3.55 L (3.80-5.40) m/uL Hgb 9.6 L (11.4-16.0) gm/dL Hct 30.6 L (34.0-46.0) % RDW 15.9 H (11.5-15.5) % Lymphocytes # 0.5 L (1.0-4.8) k/uL BUN (7-17) mg/dL Creatinine (0.52-1.04) mg/dL Glucose (74-99) mg/dL POC Glucose (mg/dL) 247 H 322 H (75-99) mg/dL Calcium (8.4-10.2) mg/dL 09/12/19 09/12/19 09/12/19 Range/Units 06:17 06:49 11:00 RBC (3.80-5.40) m/uL Hgb (11.4-16.0) gm/dL Hct (34.0-46.0) % RDW (11.5-15.5) % Lymphocytes # (1.0-4.8) k/uL BUN 33 H (7-17) mg/dL Creatinine 1.23 H (0.52-1.04) mg/dL Glucose 336 H (74-99) mg/dL POC Glucose (mg/dL) 374 H 402 H (75-99) mg/dL Calcium 8.2 L (8.4-10.2) mg/dL Assessment and Plan Assessment: -patient presented to hospital with increasing shortness of breath cough with purulent sputum production likely representing COPD exacerbation with tracheobronchitis underlying pneumonia less likely but not entirely excluded (1) Tracheobronchitis Current Visit: Yes Status: Acute Code(s): J40 - BRONCHITIS, NOT SPECIFIED ACUTE OR CHRONIC SNOMED Code(s): 17278896 (2) Pseudomonal pneumonia Current Visit: No Status: Acute Code(s): J15.1 - PNEUMONIA DUE TO PSEUDOMONAS SNOMED Code(s): 15031017 Plan: 1-cefepime 2 g every 12 hours 2-check a CRP and procalcitonin level 3-steroids and bronchodilators per pulmonary We will follow on clinical condition and cultures to further adjust medication if needed Thank you for this consultation will follow this patient along with you Time with Patient: Greater than 30
[2019-09-13 17:16] LABS: Glucose,Whole Blood 400 mg/dL (75-99)
[2019-09-13] MEDS: WARFARIN 5 MG TAB PO SCH (17:50)
[2019-09-13 19:55] LABS: Glucose,Whole Blood 337 mg/dL (75-99)
[2019-09-13] MEDS: MONTELUKAST 10 MG TAB PO SCH (20:06)
--- NOTE | 2019-09-14 02:48 | PN ---
PROGRESS NOTE DATE OF SERVICE: 09/13/2019 REASON FOR FOLLOWUP: COPD exacerbation with tracheobronchitis and question of pneumonia. INTERVAL HISTORY: The patient is currently afebrile. The patient is breathing slightly comfortably. Denies having any chest pain. She did have a cough but sputum production. No nausea, no vomiting. No abdominal pain, no diarrhea. PHYSICAL EXAMINATION: Blood pressure is 148/74 with a pulse of 92, temperature 97.7. She is 99% on 2 L nasal cannula. General description is an elderly female up in the bed in no distress. RESPIRATORY SYSTEM: Unlabored breathing with decreased intensity of breath sounds, occasional wheeze. HEART: S1, S2. Regular rate and rhythm. ABDOMEN: Soft, no tenderness. LABS: BUN of 42, creatinine is 1.37. Sputum showing gram-negative bacilli. DIAGNOSTIC IMPRESSION AND PLAN: Patient with increasing shortness of breath and cough with sputum production with chronic obstructive pulmonary disease exacerbation with tracheobronchitis with question of possible pneumonia. Previous culture positive for Pseudomonas and sputum showing gram-negative. Patient is covered with cefepime to continue and monitor clinical course closely. MMODL / IJN: [id number] /
[2019-09-14] MEDS: LEVOTHYROXINE 50 MCG TAB PO SCH (05:36)
[2019-09-14 05:49] LABS: Anisocytosis Slight; Basophils % (A) 0 %; Eosinophils % (A) 0 %; HCT 28.6 % (34.0-46.0); HGB 9.1 gm/dL (11.4-16.0); Hypochromasia Moderate; Lymphocytes # (A) 0.6 k/uL (1.0-4.8); Lymphocytes % (A) 5 %; MCH 27.3 pg (25.0-35.0); MCHC 31.9 g/dL (31.0-37.0); MCV 85.4 fL (80.0-100.0); Mean Platelet Volume 7.1; Monocytes # (A) 0.4 k/uL (0-1.0); Monocytes % (A) 3 %; Neutrophils # (A) 11.2 k/uL (1.3-7.7); Neutrophils % (A) 92 %; Platelet Count 170 k/uL (150-450); RBC 3.35 m/uL (3.80-5.40); RDW 16.4 % (11.5-15.5); WBC 12.2 k/uL (3.8-10.6)
[2019-09-14 06:01] LABS: INR 1.3 (<1.2); Prothrombin Time 12.7 sec (9.0-12.0)
[2019-09-14 06:08] LABS: C Reactive Protein 7.5 mg/L (<10.0); Calcium 8.3 mg/dL (8.4-10.2); Potassium 4.5 mmol/L (3.5-5.1)
[2019-09-14 07:24] LABS: Glucose,Whole Blood 321 mg/dL (75-99)
--- NOTE | 2019-09-14 08:47 | P.PN ---
Subjective Progress Note Date: 09/13/19 Principal diagnosis: This is a 74-year-old female who was recently admitted with Increasing shortness of breath along with some chest pain in the lower part of the chest and epigas trium and is being closely monitored. Patient has a history of multiple medical problems with COPD, CHF, diabetes mellitus, hypertension, with history of pneumonia in the past. Patient continues to be quite dyspneic with exertion and is currently maintained on 2-3 L of oxygen via nasal cannula. She is oxygen dependent in the outpatient setting. Patient has been having difficulty making elderly to the bathroom due to severe dyspnea and has been using the bedside commode. Patient also Continues to be quite wheezy on exam and is currently maintained on IV steroids along with bronchodilators. Pulmonary is following. Infectious disease was consulted and currently pending at this time. Patient is maintained on IV antibiotics in the form of cefepime and will continue at this time. Review of systems: Constitutional: No reports of fatigue, fevers, or chills Cardiovascular: No reports of chest pain or palpitations Respiratory: Report shortness of breath with exertion, reports cough GI: No reports of nausea, vomiting, or diarrhea : No reports of dysuria or retention Neurovascular: No reports of weakness or numbness 09/13/2019 Patient is seen and evaluated in follow-up continues to be dyspneic with exertion requiring 2-3 L of oxygen via nasal cannula. Patient's baseline is 2 L of oxygen in the outpatient setting. Patient is being monitored and followed closely by pulmonary as well. Patient continues on IV steroids and sugars have been elevated. Will continue to monitor closely with long-acting along with sliding scale and adjust accordingly. Patient is currently maintained on cefepime and will continue at this time. Preliminary sputum culture showing gram-negative bacilli and will await finalization of cultures. Blood cultures remain negative. Patient is also currently maintained on IV Lasix and creatinine continues to elevate with current creatinine today is 1.37. Will repeat a.m. labs and Lasix is being transitioned oral Lasix. Patient states she normally takes Lasix 40 mg daily and is currently on twice daily at this time. Patient is denying any chest pain, worsening shortness of breath, or palpitations. Patient is afebrile. No reports of nausea or vomiting and patient is tolerating diet. Objective - Vital Signs Vital signs: Vital Signs Temp 97.9 F 09/13/19 12:51 Pulse 92 09/13/19 15:50 Resp 21 09/13/19 12:51 BP 126/65 09/13/19 12:51 Pulse Ox 98 09/13/19 12:51 Intake & Output 09/12/19 09/13/19 09/13/19 18:59 06:59 18:59 Intake Total 1280 240 Balance 1280 240 Weight 105 kg Intake: Intake, IV Titration 100 Amount Cefepime 2 gm In Sodium 100 Chloride 0.9% 100 ml @ 200 mls/hr IVPB Q12HR [facility] Rx#:[id number] Oral 1180 240 Other: Voiding Method Bedside Commode Bedside Commode Bedside Commode # Voids 3 2 1 - Exam Gen: This is a 74-year-old female sitting up at the side of the bed, awake, alert and oriented 3, well-developed, well-nourished. Temp is 97.6F, pulse is 88, respirations are 20, blood pressure is 137/68, oxygen saturation is 97% on 2 L via nasal cannula HEENT: Head is atraumatic, normocephalic. Pupils equal, round. Sclerae is anicteric. NECK: Supple. No JVD. No lymphadenopathy. No thyromegaly. LUNGS: Diminished breath sounds bilaterally with some scattered rhonchi noted. Expiratory wheezing noted on exam as well. No intercostal retractions. Wheezing slightly improved. HEART: S1, S2 are muffled. ABDOMEN: Soft. Bowel sounds are present. No masses. No tenderness. EXTREMITIES: No pedal edema. No calf tenderness. NEUROLOGICAL: Patient is awake, alert and oriented x3. Cranial nerves 2 through 12 are grossly intact. - Labs CBC & Chem 7: 09/14/19 05:26 09/14/19 05:26 Labs: Abnormal Lab Results - Last 24 Hours (Table) 09/12/19 09/12/19 09/13/19 Range/Units 17:12 20:05 06:33 WBC 12.9 H (3.8-10.6) k/uL RBC 3.34 L (3.80-5.40) m/uL Hgb 9.3 L (11.4-16.0) gm/dL Hct 28.4 L (34.0-46.0) % RDW 16.3 H (11.5-15.5) % Neutrophils # 11.9 H (1.3-7.7) k/uL Lymphocytes # 0.7 L (1.0-4.8) k/uL INR (<1.2) BUN (7-17) mg/dL Creatinine (0.52-1.04) mg/dL Glucose (74-99) mg/dL POC Glucose (mg/dL) 266 H 411 H (75-99) mg/dL Calcium (8.4-10.2) mg/dL 09/13/19 09/13/19 09/13/19 Range/Units 06:33 06:33 07:04 WBC (3.8-10.6) k/uL RBC (3.80-5.40) m/uL Hgb (11.4-16.0) gm/dL Hct (34.0-46.0) % RDW (11.5-15.5) % Neutrophils # (1.3-7.7) k/uL Lymphocytes # (1.0-4.8) k/uL INR 1.2 H (<1.2) BUN 42 H (7-17) mg/dL Creatinine 1.37 H (0.52-1.04) mg/dL Glucose 307 H (74-99) mg/dL POC Glucose (mg/dL) 329 H (75-99) mg/dL Calcium 8.0 L (8.4-10.2) mg/dL 09/13/19 Range/Units 11:44 WBC (3.8-10.6) k/uL RBC (3.80-5.40) m/uL Hgb (11.4-16.0) gm/dL Hct (34.0-46.0) % RDW (11.5-15.5) % Neutrophils # (1.3-7.7) k/uL Lymphocytes # (1.0-4.8) k/uL INR (<1.2) BUN (7-17) mg/dL Creatinine (0.52-1.04) mg/dL Glucose (74-99) mg/dL POC Glucose (mg/dL) 352 H (75-99) mg/dL Calcium (8.4-10.2) mg/dL Microbiology - Last 24 Hours (Table) 09/12/19 09:23 Gram Stain - Preliminary Sputum Sputum Culture - Preliminary Gram Neg Bacilli 09/11/19 17:15 Blood Culture - Preliminary Blood No Growth after 24 hours Assessment and Plan Assessment: Chronic obstructive pulmonary disease and bronchial asthma, acute exacerbation, with basilar pneumonia, tracheobronchitis, possibly gram-negative Paroxysmal atrial fibrillation Chest pain, possibly musculoskeletal History of congestive heart failure; ejection fraction unknown Diabetes mellitus type 2 Gastroesophageal reflux disease Hearing deficit Hypertension History of degenerative joint disease History of pneumonia Hypothyroidism History of retinal hole History of hiatal hernia Chronic hypoxic respiratory failure, on home oxygen Recent pulmonary infection with Pseudomonas History of multidrug-resistant organisms History of cholecystectomy Hysterectomy History of anxiety, panic disorder Obesity with a body mass index of 38.6 Recommendations and discussion: Recommend to continue current medications, management, and symptomatic treatment. Pulmonary following closely. Patient is maintained on bronchodilators and IV steroids and will continue at this time. Blood sugars continue to be elevated and will continue to monitor closely and titrate insulins as needed. Patient to increase activity as tolerated. Blood cultures remain negative. Sputum cultures preliminary showing moderate gram-negative bacilli and will await finalization of cultures. Infectious disease following. She will continue on IV antibiotics in the form of cefepime. Will repeat a.m. labs and monitor vital signs closely. Patient transition to oral Lasix. Due to multiple complex medical issues, prognosis is guarded. Further recommendations to follow.
[2019-09-14] MEDS: PANTOPRAZOLE 40 MG TABLET PO SCH (08:57)
[2019-09-14] MEDS: INSULIN ASPART (NovoLOG) 100 UNIT/ML VIAL SQ SCH ×4 (08:57→22:40)
[2019-09-14] MEDS: CEFEPIME 2 GM in SODIUM CHLORIDE 0.9% 100 ML IVPB SCH ×2 (08:58→20:10)
[2019-09-14] MEDS: ALPRAZolam 0.5 MG TAB PO SCH ×3 (08:58→22:47)
[2019-09-14] MEDS: ATORVASTATIN 10 MG TAB PO SCH (08:58)
[2019-09-14] MEDS: LORATADINE 10 MG TAB PO SCH (08:59)
[2019-09-14] MEDS: POTASSIUM CHLORIDE ER 20 MEQ TAB.ER PO SCH ×2 (08:59→20:18)
[2019-09-14] MEDS: FUROSEMIDE 40 MG TAB PO SCH ×2 (08:59→17:15)
[2019-09-14] MEDS: INSULIN DETEMIR (LEVEMIR) 100 UNIT/ML SYR SQ SCH (08:59)
[2019-09-14] MEDS: DILTIAZEM CD 180 MG CAP.ER.24H PO SCH (08:59)
[2019-09-14] MEDS: CITALOPRAM HYDROBROMIDE 20 MG TAB PO SCH (08:59)
[2019-09-14] MEDS: LOSARTAN 50 MG TAB PO SCH (08:59)
[2019-09-14] MEDS: FERROUS SULFATE 325 MG TAB PO SCH (08:59)
[2019-09-14] MEDS: IPRATROPIUM-ALBUTEROL 3 ML NEB INHALATION SCH ×4 (09:18→19:58)
[2019-09-14] MEDS: SYMBICORT 160-4.5 MCG INHALER INHALATION SCH ×2 (09:18→19:58)
[2019-09-14 12:12] LABS: Glucose,Whole Blood 346 mg/dL (75-99)
[2019-09-14] MEDS: DEXAMETHASONE SOD PHOSPHATE 4 MG/ML 1 ML VIAL IV SCH ×2 (12:17→22:47)
--- NOTE | 2019-09-14 12:55 | P.PN ---
Subjective Progress Note Date: 09/14/19 Principal diagnosis: Acute exacerbation of chronic obstructive pulmonary disease 74-year-old patient with known history of advanced COPD/chronic bronchial asthma, moderately persistent on home oxygen at 2 L, previous history of pseudomonal pulmonary infections, history of atrial fibrillation on Coumadin, CHF unspecified, diabetes mellitus, GERD/reflux, hypertension, hypothyroidism, presented to the hospital on 09/11/2019 with complaints of 2 day history of worsening shortness of breath, cough, congestion, wheezing. Denied any chest pain or palpitations, denies any increased edema in her lower extremities, patient does have some chronic venous stasis changes and some chronic swelling in her lower extremities. Denied any fever or chills. No nausea vomiting or diarrhea. Chest x-ray reveals diffuse interstitial opacity, mild pulmonary congestion, and mild patchy opacity at the lung bases, probably related to atelectasis. Patient sounds very congested and, coarse, and wheezy. She was started on a combination of cefepime and vancomycin for antibiotic coverage. She has not able to bring up any sputum. Her admission lab work showed white blood cell count 7.2, hemoglobin is 10.4, d-dimer was negative at 0.48, electrolytes were within normal limits, B1 is 27, creatinine is 1.14, troponin is negative at less than 0.012, LFTs are within normal limits. Patient was started on IV diuretics, IV steroids, namely bronchodilators and antibiotics. On 09/13/2019 patient seen in follow-up on general medical oncology floor, she still required bronchospastic and congested, not bringing up much sputum, she remains on 2 L of oxygen with a pulse ox 97%, she does become dyspneic with exertion, but does not appear to be in any acute distress, she continues on cefepime for empiric antibiotic coverage, she also developed significant steroid-induced hyperglycemia with blood sugar in the 300s. She is currently on IV Solu-Medrol 60 mg every 6 hours, and nebulized bronchodilators, which can taper the dose of steroids down, and switch her to oral Decadron. Sputum c ulture was sent, showing moderate epithelial cells, moderate gram-negative bacilli and rare gram-positive cocci. Blood culture has shown no growth. The patient is seen today 09/14/2019 in follow-up on the regular medical floor. She is currently sitting up in bed. Awake and alert in no acute distress. Breathing bit easier today compared to yesterday. Still somewhat bronchospastic and wheezy. Dyspneic with minimal exertion. Maintaining O2 saturations in the 90s on 2 L/m per nasal cannula. Sputum culture positive for gram-negative bacilli. Blood cultures revealing no growth. White count 12.2. Hemoglobin 9.1. INR 1.3. Sodium 135. Potassium 4.5. Creatinine 1.65. Pro-calcitonin 0. 11. She's currently on cefepime. She remains on bronchodilators, IV Decadron, oral diuretics. Anticoagulated with warfarin. Objective - Vital Signs Vital signs: Vital Signs Temp 97.5 F L 09/14/19 05:00 Pulse 88 09/14/19 12:13 Resp 16 09/14/19 08:00 BP 156/70 09/14/19 05:00 Pulse Ox 98 09/14/19 05:00 Intake & Output 09/13/19 09/14/19 09/14/19 18:59 06:59 18:59 Intake Total 240 1070 240 Balance 240 1070 240 Weight 107.1 kg Intake: Oral 240 1070 240 Other: Voiding Method Bedside Commode Bedside Commode Bedside Commode # Voids 1 3 3 - Exam - Exam GENERAL EXAM: Alert, very pleasant, 74-year-old female patient, on 2 L of oxygen with a pulse ox of 98%, comfortable in no apparent distress. HEAD: Normocephalic/atraumatic. EYES: Normal reaction of pupils, equal size. Conjunctiva pink, sclera white. NOSE: Clear with pink turbinates. THROAT: No erythema or exudates. NECK: No masses, no JVD, no thyroid enlargement, no adenopathy. CHEST: No chest wall deformity. Symmetrical expansion. LUNGS: Equal air entry with diffuse wheezes and rhonchi CVS: Regular rate and rhythm, normal S1 and S2, no gallops, no murmurs, no rubs ABDOMEN: Soft, nontender. No hepatosplenomegaly, normal bowel sounds, no guarding or rigidity. EXTREMITIES: No clubbing, chronic venous stasis changes involving lower extremities, and mild pretibial edema, no cyanosis, 2+ pulses and upper and lower extremities. MUSCULOSKELETAL: Muscle strength and tone normal. SPINE: No scoliosis or deformity SKIN: No rashes CENTRAL NERVOUS SYSTEM: No focal deficits, tone is normal in all 4 extremities. PSYCHIATRIC: Alert and oriented -3. Appropriate affect. Intact judgment and insight. - Labs CBC & Chem 7: 09/14/19 05:26 09/14/19 05:26 Labs: Abnormal Lab Results - Last 24 Hours (Table) 09/13/19 09/13/19 09/14/19 Range/Units 17:10 19:53 05:26 WBC 12.2 H (3.8-10.6) k/uL RBC 3.35 L (3.80-5.40) m/uL Hgb 9.1 L (11.4-16.0) gm/dL Hct 28.6 L (34.0-46.0) % RDW 16.4 H (11.5-15.5) % Neutrophils # 11.2 H (1.3-7.7) k/uL Lymphocytes # 0.6 L (1.0-4.8) k/uL PT (9.0-12.0) sec INR (<1.2) Sodium (137-145) mmol/L BUN (7-17) mg/dL Creatinine (0.52-1.04) mg/dL Glucose (74-99) mg/dL POC Glucose (mg/dL) 400 H 337 H (75-99) mg/dL Calcium (8.4-10.2) mg/dL Procalcitonin (0.02-0.09) ng/mL 09/14/19 09/14/19 09/14/19 Range/Units 05:26 05:26 05:26 WBC (3.8-10.6) k/uL RBC (3.80-5.40) m/uL Hgb (11.4-16.0) gm/dL Hct (34.0-46.0) % RDW (11.5-15.5) % Neutrophils # (1.3-7.7) k/uL Lymphocytes # (1.0-4.8) k/uL PT 12.7 H (9.0-12.0) sec INR 1.3 H (<1.2) Sodium 135 L (137-145) mmol/L BUN 54 H (7-17) mg/dL Creatinine 1.65 H (0.52-1.04) mg/dL Glucose 294 H (74-99) mg/dL POC Glucose (mg/dL) (75-99) mg/dL Calcium 8.3 L (8.4-10.2) mg/dL Procalcitonin 0.11 H (0.02-0.09) ng/mL 09/14/19 09/14/19 Range/Units 07:19 11:39 WBC (3.8-10.6) k/uL RBC (3.80-5.40) m/uL Hgb (11.4-16.0) gm/dL Hct (34.0-46.0) % RDW (11.5-15.5) % Neutrophils # (1.3-7.7) k/uL Lymphocytes # (1.0-4.8) k/uL PT (9.0-12.0) sec INR (<1.2) Sodium (137-145) mmol/L BUN (7-17) mg/dL Creatinine (0.52-1.04) mg/dL Glucose (74-99) mg/dL POC Glucose (mg/dL) 321 H 346 H (75-99) mg/dL Calcium (8.4-10.2) mg/dL Procalcitonin (0.02-0.09) ng/mL Microbiology - Last 24 Hours (Table) 09/11/19 17:15 Blood Culture - Preliminary Blood No Growth after 48 hours 09/12/19 09:23 Gram Stain - Preliminary Sputum Sputum Culture - Preliminary Gram Neg Bacilli Assessment and Plan Assessment: #1. Acute exacerbation of COPD/chronic bronchial asthma, moderately persistent, with tracheobronchitis, possibly related to Pseudomonas. Chest x-ray shows diffuse interstitial opacity, mild pulmonary vascular congestion, and mild patchy opacity at the lung bases, probably related to atelectasis. Patient has previous history of recurrent pseudomonal infections. Sputum cultures revealing gram-negative bacilli thus far. Currently on cefepime #2. Chronic hypoxic respiratory failure related to advanced COPD #3. 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 Diabetes mellitus type 2 #5. Paroxysmal atrial fibrillation on Coumadin, current rhythm is sinus, patient is on Coumadin 5 mg daily, admission INR subtherapeutic at 1.0 #6. Chronic kidney disease, stage II #7. Hypertension #8. Osteoarthritis #9. Hypothyroidism #10. Coarse interstitial changes present on the chest x-ray rule out underlying fibrosis/scarring #11. Steroid-induced hyperglycemia Plan: The patient was seen and evaluated by Dr. Chow She is improved but not quite back to baseline Continue the current treatment plan Increase her activity as tolerated Probable discharge in the a.m. We will continue to follow I, the cosigning physician, performed a history & physical examination of the patient. Lungs sounds with bilateral end expiratory wheeze, few scattered rhonchi. Maintaining good O2 saturations in the 90s on 2 L/m per nasal cannula. I discussed the assessment and plan of care with my nurse practitioner, Su Arias. I attest to the above note as dictated by her.
[2019-09-14 17:01] LABS: Glucose,Whole Blood 355 mg/dL (75-99)
--- NOTE | 2019-09-14 17:37 | PN ---
PROGRESS NOTE DATE OF SERVICE: 09/14/2019 REASON FOR FOLLOWUP: COPD exacerbation with tracheobronchitis and a question of pneumonia. INTERVAL HISTORY: The patient is currently afebrile. The patient is breathing more comfortably. The patient denies having any chest pain. She did have a cough, though decreased in intensity, less productive. No nausea, no vomiting. No abdominal pain or diarrhea. PHYSICAL EXAMINATION: Blood pressure 119/70 with a pulse of 92, temperature 97.9. She is 97% on 2 L nasal cannula. General description is an elderly female up in the bed in no distress. RESPIRATORY SYSTEM: Unlabored breathing with expiratory wheeze. HEART: S1, S2. Regular rate and rhythm. ABDOMEN: Soft. No tenderness. LABS: Hemoglobin 9.1, white count 12.2, BUN of 54, creatinine 1.65. Sputum showing Gram- negative. DIAGNOSTIC IMPRESSION AND PLAN: Patient with shortness of breath which is multifactorial in this patient who did have a component of chronic obstructive pulmonary disease exacerbation and tracheobronchitis with a component of possible pneumonia. Previous culture positive for pseudomonas. Patient is covered with cefepime and is showing clinical improvement. To continue and monitor her clinical course closely. MMODL / IJN: [id number] /
[2019-09-14] MEDS ORDERED: WARFARIN 7.5 MG TAB PO ONE (18:00)
[2019-09-14] MEDS: MONTELUKAST 10 MG TAB PO SCH (20:18)
[2019-09-14 22:28] LABS: Glucose,Whole Blood 460 mg/dL (75-99)
[2019-09-14] MEDS ORDERED: INSULIN ASPART (NovoLOG) 100 UNIT/ML VIAL SQ ONE (22:39)
--- NOTE | 2019-09-14 23:50 | P.PN ---
Subjective Progress Note Date: 09/14/19 Principal diagnosis: This is a 74-year-old female who was recently admitted with Increasing shortness of breath along with some chest pain in the lower part of the chest and epigas trium and is being closely monitored. Patient has a history of multiple medical problems with COPD, CHF, diabetes mellitus, hypertension, with history of pneumonia in the past. Patient continues to be quite dyspneic with exertion and is currently maintained on 2-3 L of oxygen via nasal cannula. She is oxygen dependent in the outpatient setting. Patient has been having difficulty making elderly to the bathroom due to severe dyspnea and has been using the bedside commode. Patient also Continues to be quite wheezy on exam and is currently maintained on IV steroids along with bronchodilators. Pulmonary is following. Infectious disease was consulted and currently pending at this time. Patient is maintained on IV antibiotics in the form of cefepime and will continue at this time. Review of systems: Constitutional: No reports of fatigue, fevers, or chills Cardiovascular: No reports of chest pain or palpitations Respiratory: Report shortness of breath with exertion, reports cough GI: No reports of nausea, vomiting, or diarrhea : No reports of dysuria or retention Neurovascular: No reports of weakness or numbness 09/13/2019 Patient is seen and evaluated in follow-up continues to be dyspneic with exertion requiring 2-3 L of oxygen via nasal cannula. Patient's baseline is 2 L of oxygen in the outpatient setting. Patient is being monitored and followed closely by pulmonary as well. Patient continues on IV steroids and sugars have been elevated. Will continue to monitor closely with long-acting along with sliding scale and adjust accordingly. Patient is currently maintained on cefepime and will continue at this time. Preliminary sputum culture showing gram-negative bacilli and will await finalization of cultures. Blood cultures remain negative. Patient is also currently maintained on IV Lasix and creatinine continues to elevate with current creatinine today is 1.37. Will repeat a.m. labs and Lasix is being transitioned oral Lasix. Patient states she normally takes Lasix 40 mg daily and is currently on twice daily at this time. Patient is denying any chest pain, worsening shortness of breath, or palpitations. Patient is afebrile. No reports of nausea or vomiting and patient is tolerating diet. 09/14/2019 Patient seen in follow up today and continues to be dyspneic and wheezing although has improved. Patient is able to walk to the bathroom without becoming severely dyspneic. Patient is maintained on IV antibiotics in the form of cefepime and will continue at this time. Sputum cultures preliminary showing gram negative bacilli. Infectious disease is following along with pulmonary. Patient is also maintained on IV steroids along with breathing inhalational treatments and will continue. Current creatinine is rising at 1.65 today and being closely monitored. Patient denies any nausea or vomiting and tolerating diet. Patient is afebrile. Patient denies any chest pain or palpitations at this time. Objective - Vital Signs Vital signs: Vital Signs Temp 97.9 F 09/14/19 13:00 Pulse 92 09/14/19 16:17 Resp 21 09/14/19 14:24 BP 118/70 09/14/19 13:00 Pulse Ox 97 09/14/19 13:00 Intake & Output 09/13/19 09/14/19 09/14/19 18:59 06:59 18:59 Intake Total 240 1070 860 Balance 240 1070 860 Weight 107.1 kg Intake: Intake, IV Titration 100 Amount Cefepime 2 gm In Sodium 100 Chloride 0.9% 100 ml @ 200 mls/hr IVPB Q12HR [facility] Rx#:[id number] Oral 240 1070 760 Other: Voiding Method Bedside Commode Bedside Commode Bedside Commode # Voids 1 3 3 - Exam Gen: This is a 74-year-old female sitting up in the bed, awake, alert and oriented 3, well-developed, well-nourished. Temp is 97.5F, pulse is 87, respirations are 16, blood pressure is 156/70, oxygen saturation is 98% on 2 L via nasal cannula HEENT: Head is atraumatic, normocephalic. Pupils equal, round. Sclerae is anicteric. NECK: Supple. No JVD. No lymphadenopathy. No thyromegaly. LUNGS: Diminished breath sounds bilaterally with some scattered rhonchi noted. Expiratory wheezing noted on exam as well. No intercostal retractions. Wheezing slightly improved. HEART: S1, S2 are muffled. ABDOMEN: Soft. Bowel sounds are present. No masses. No tenderness. EXTREMITIES: No pedal edema. No calf tenderness. NEUROLOGICAL: Patient is awake, alert and oriented x3. Cranial nerves 2 through 12 are grossly intact. - Labs CBC & Chem 7: 09/14/19 05:26 09/14/19 05:26 Labs: Abnormal Lab Results - Last 24 Hours (Table) 09/13/19 09/13/19 09/14/19 Range/Units 17:10 19:53 05:26 WBC 12.2 H (3.8-10.6) k/uL RBC 3.35 L (3.80-5.40) m/uL Hgb 9.1 L (11.4-16.0) gm/dL Hct 28.6 L (34.0-46.0) % RDW 16.4 H (11.5-15.5) % Neutrophils # 11.2 H (1.3-7.7) k/uL Lymphocytes # 0.6 L (1.0-4.8) k/uL PT (9.0-12.0) sec INR (<1.2) Sodium (137-145) mmol/L BUN (7-17) mg/dL Creatinine (0.52-1.04) mg/dL Glucose (74-99) mg/dL POC Glucose (mg/dL) 400 H 337 H (75-99) mg/dL Calcium (8.4-10.2) mg/dL Procalcitonin (0.02-0.09) ng/mL 09/14/19 09/14/19 09/14/19 Range/Units 05:26 05:26 05:26 WBC (3.8-10.6) k/uL RBC (3.80-5.40) m/uL Hgb (11.4-16.0) gm/dL Hct (34.0-46.0) % RDW (11.5-15.5) % Neutrophils # (1.3-7.7) k/uL Lymphocytes # (1.0-4.8) k/uL PT 12.7 H (9.0-12.0) sec INR 1.3 H (<1.2) Sodium 135 L (137-145) mmol/L BUN 54 H (7-17) mg/dL Creatinine 1.65 H (0.52-1.04) mg/dL Glucose 294 H (74-99) mg/dL POC Glucose (mg/dL) (75-99) mg/dL Calcium 8.3 L (8.4-10.2) mg/dL Procalcitonin 0.11 H (0.02-0.09) ng/mL 09/14/19 09/14/19 Range/Units 07:19 11:39 WBC (3.8-10.6) k/uL RBC (3.80-5.40) m/uL Hgb (11.4-16.0) gm/dL Hct (34.0-46.0) % RDW (11.5-15.5) % Neutrophils # (1.3-7.7) k/uL Lymphocytes # (1.0-4.8) k/uL PT (9.0-12.0) sec INR (<1.2) Sodium (137-145) mmol/L BUN (7-17) mg/dL Creatinine (0.52-1.04) mg/dL Glucose (74-99) mg/dL POC Glucose (mg/dL) 321 H 346 H (75-99) mg/dL Calcium (8.4-10.2) mg/dL Procalcitonin (0.02-0.09) ng/mL Microbiology - Last 24 Hours (Table) 09/11/19 17:15 Blood Culture - Preliminary Blood No Growth after 48 hours 09/12/19 09:23 Gram Stain - Preliminary Sputum Sputum Culture - Preliminary Gram Neg Bacilli Assessment and Plan Assessment: Chronic obstructive pulmonary disease and bronchial asthma, acute exacerbation, with basilar pneumonia, tracheobronchitis, possibly gram-negative Paroxysmal atrial fibrillation Chest pain, possibly musculoskeletal History of congestive heart failure; ejection fraction unknown Diabetes mellitus type 2 Gastroesophageal reflux disease Hearing deficit Hypertension History of degenerative joint disease History of pneumonia Hypothyroidism History of retinal hole History of hiatal hernia Chronic hypoxic respiratory failure, on home oxygen Recent pulmonary infection with Pseudomonas History of multidrug-resistant organisms History of cholecystectomy Hysterectomy History of anxiety, panic disorder Obesity with a body mass index of 38.6 Recommendations and discussion: Recommend to continue current medications, management, and symptomatic treatment. Pulmonary following closely. Patient is maintained on bronchodilators and IV steroids and will continue at this time. Blood sugars continue to be elevated and will continue to monitor closely and titrate insulins as needed. Patient to increase activity as tolerated. Blood cultures remain negative. Sputum cultures preliminary showing moderate gram-negative bacilli and will await finalization of cultures. Infectious disease following. She will continue on IV antibiotics in the form of cefepime. Will repeat a.m. labs and monitor vital signs closely. Due to multiple complex medical issues, prognosis is guarded. Further recommendations to follow. Possible discharge in 24-48 hours.
[2019-09-15] MEDS: LEVOTHYROXINE 50 MCG TAB PO SCH (06:00)
[2019-09-15 07:19] LABS: Glucose,Whole Blood 339 mg/dL (75-99)
[2019-09-15] MEDS: INSULIN ASPART (NovoLOG) 100 UNIT/ML VIAL SQ SCH ×4 (08:13→20:43)
[2019-09-15] MEDS: ATORVASTATIN 10 MG TAB PO SCH (08:14)
[2019-09-15] MEDS: ALPRAZolam 0.5 MG TAB PO SCH ×3 (08:14→22:07)
[2019-09-15] MEDS: PANTOPRAZOLE 40 MG TABLET PO SCH (08:14)
[2019-09-15] MEDS: INSULIN DETEMIR (LEVEMIR) 100 UNIT/ML SYR SQ SCH (08:15)
[2019-09-15] MEDS: FUROSEMIDE 40 MG TAB PO SCH ×2 (08:15→15:44)
[2019-09-15] MEDS: FERROUS SULFATE 325 MG TAB PO SCH (08:15)
[2019-09-15] MEDS: CITALOPRAM HYDROBROMIDE 20 MG TAB PO SCH (08:15)
[2019-09-15] MEDS: DILTIAZEM CD 180 MG CAP.ER.24H PO SCH (08:15)
[2019-09-15] MEDS: POTASSIUM CHLORIDE ER 20 MEQ TAB.ER PO SCH ×2 (08:16→20:34)
[2019-09-15] MEDS: LOSARTAN 50 MG TAB PO SCH (08:16)
[2019-09-15] MEDS: LORATADINE 10 MG TAB PO SCH (08:16)
[2019-09-15 08:17] LABS: Calcium 8.6 mg/dL (8.4-10.2); Potassium 4.9 mmol/L (3.5-5.1)
[2019-09-15 08:27] LABS: Anisocytosis Slight; Basophils % (A) 0 %; Eosinophils % (A) 0 %; HCT 29.9 % (34.0-46.0); HGB 9.2 gm/dL (11.4-16.0); Hypochromasia Slight; INR 1.4 (<1.2); Lymphocytes # (A) 0.6 k/uL (1.0-4.8); Lymphocytes % (A) 6 %; MCH 25.6 pg (25.0-35.0); MCHC 30.8 g/dL (31.0-37.0); MCV 83.1 fL (80.0-100.0); Mean Platelet Volume 7.3; Monocytes # (A) 0.4 k/uL (0-1.0); Monocytes % (A) 4 %; Neutrophils # (A) 8.8 k/uL (1.3-7.7); Neutrophils % (A) 89 %; Platelet Count 183 k/uL (150-450); Prothrombin Time 13.6 sec (9.0-12.0); RDW 16.7 % (11.5-15.5); WBC 9.9 k/uL (3.8-10.6)
[2019-09-15 09:03] LABS: Poikilocytosis (M) Present
[2019-09-15] MEDS: SYMBICORT 160-4.5 MCG INHALER INHALATION SCH ×2 (09:18→19:25)
[2019-09-15] MEDS: IPRATROPIUM-ALBUTEROL 3 ML NEB INHALATION SCH ×4 (09:18→19:25)
[2019-09-15] MEDS: CEFEPIME 2 GM in SODIUM CHLORIDE 0.9% 100 ML IVPB SCH ×2 (10:18→20:34)
--- NOTE | 2019-09-15 10:45 | P.PN ---
Subjective Progress Note Date: 09/15/19 Principal diagnosis: Acute exacerbation of chronic obstructive pulmonary disease 74-year-old patient with known history of advanced COPD/chronic bronchial asthma, moderately persistent on home oxygen at 2 L, previous history of pseudomonal pulmonary infections, history of atrial fibrillation on Coumadin, CHF unspecified, diabetes mellitus, GERD/reflux, hypertension, hypothyroidism, presented to the hospital on 09/11/2019 with complaints of 2 day history of worsening shortness of breath, cough, congestion, wheezing. Denied any chest pain or palpitations, denies any increased edema in her lower extremities, patient does have some chronic venous stasis changes and some chronic swelling in her lower extremities. Denied any fever or chills. No nausea vomiting or diarrhea. Chest x-ray reveals diffuse interstitial opacity, mild pulmonary congestion, and mild patchy opacity at the lung bases, probably related to atelectasis. Patient sounds very congested and, coarse, and wheezy. She was started on a combination of cefepime and vancomycin for antibiotic coverage. She has not able to bring up any sputum. Her admission lab work showed white blood cell count 7.2, hemoglobin is 10.4, d-dimer was negative at 0.48, electrolytes were within normal limits, B1 is 27, creatinine is 1.14, troponin is negative at less than 0.012, LFTs are within normal limits. Patient was started on IV diuretics, IV steroids, namely bronchodilators and antibiotics. On 09/13/2019 patient seen in follow-up on general medical oncology floor, she still required bronchospastic and congested, not bringing up much sputum, she remains on 2 L of oxygen with a pulse ox 97%, she does become dyspneic with exertion, but does not appear to be in any acute distress, she continues on cefepime for empiric antibiotic coverage, she also developed significant steroid-induced hyperglycemia with blood sugar in the 300s. She is currently on IV Solu-Medrol 60 mg every 6 hours, and nebulized bronchodilators, which can taper the dose of steroids down, and switch her to oral Decadron. Sputum c ulture was sent, showing moderate epithelial cells, moderate gram-negative bacilli and rare gram-positive cocci. Blood culture has shown no growth. The patient is seen today 09/14/2019 in follow-up on the regular medical floor. She is currently sitting up in bed. Awake and alert in no acute distress. Breathing bit easier today compared to yesterday. Still somewhat bronchospastic and wheezy. Dyspneic with minimal exertion. Maintaining O2 saturations in the 90s on 2 L/m per nasal cannula. Sputum culture positive for gram-negative bacilli. Blood cultures revealing no growth. White count 12.2. Hemoglobin 9.1. INR 1.3. Sodium 135. Potassium 4.5. Creatinine 1.65. Pro-calcitonin 0. 11. She's currently on cefepime. She remains on bronchodilators, IV Decadron, oral diuretics. Anticoagulated with warfarin. The patient is seen today 09/15/2019 in follow-up on the regular medical floor. Awake and alert in no acute distress. Breathing better today. Not quite back to her baseline. She is maintaining good O2 saturations in the 90s on 2 L/m per nasal cannula. She's afebrile. Hemodynamically stable. Urine culture positive for gram-negative bacilli. White count 9.9. Hemoglobin 9.2. INR 1.4. Sodium 136. Potassium 4.9. Creatinine 1.42. She remains on Symbicort, DuoNeb's, Decadron, Singulair, Mucinex. Remains on warfarin. Objective - Vital Signs Vital signs: Vital Signs Temp 97.7 F 09/15/19 05:03 Pulse 100 09/15/19 09:33 Resp 18 09/15/19 05:03 BP 138/77 09/15/19 05:03 Pulse Ox 96 09/15/19 05:03 Intake & Output 09/14/19 09/15/19 09/15/19 18:59 06:59 18:59 Intake Total 860 Balance 860 Weight 107 kg Intake: Intake, IV Titration 100 Amount Cefepime 2 gm In Sodium 100 Chloride 0.9% 100 ml @ 200 mls/hr IVPB Q12HR [facility] Rx#:[id number] Oral 760 Other: Voiding Method Bedside Commode Bedside Commode Bedside Commode # Voids 3 1 1 - Exam - Exam GENERAL EXAM: Alert, very pleasant, 74-year-old female patient, on 2 L of oxygen with a pulse ox of 96%, comfortable in no apparent distress. HEAD: Normocephalic/atraumatic. EYES: Normal reaction of pupils, equal size. Conjunctiva pink, sclera white. NOSE: Clear with pink turbinates. THROAT: No erythema or exudates. NECK: No masses, no JVD, no thyroid enlargement, no adenopathy. CHEST: No chest wall deformity. Symmetrical expansion. LUNGS: Equal air entry with bilateral end expiratory wheezes and rhonchi CVS: Regular rate and rhythm, normal S1 and S2, no gallops, no murmurs, no rubs ABDOMEN: Soft, nontender. No hepatosplenomegaly, normal bowel sounds, no guarding or rigidity. EXTREMITIES: No clubbing, chronic venous stasis changes involving lower extremities, and mild pretibial edema, no cyanosis, 2+ pulses and upper and lower extremities. MUSCULOSKELETAL: Muscle strength and tone normal. SPINE: No scoliosis or deformity SKIN: No rashes CENTRAL NERVOUS SYSTEM: No focal deficits, tone is normal in all 4 extremities. PSYCHIATRIC: Alert and oriented -3. Appropriate affect. Intact judgment and insight. - Labs CBC & Chem 7: 09/15/19 07:25 09/15/19 07:25 Labs: Abnormal Lab Results - Last 24 Hours (Table) 09/14/19 09/14/19 09/14/19 Range/Units 05:26 11:39 16:59 RBC (3.80-5.40) m/uL Hgb (11.4-16.0) gm/dL Hct (34.0-46.0) % MCHC (31.0-37.0) g/dL RDW (11.5-15.5) % Neutrophils # (1.3-7.7) k/uL Lymphocytes # (1.0-4.8) k/uL PT (9.0-12.0) sec INR (<1.2) Sodium (137-145) mmol/L BUN (7-17) mg/dL Creatinine (0.52-1.04) mg/dL Glucose (74-99) mg/dL POC Glucose (mg/dL) 346 H 355 H (75-99) mg/dL Procalcitonin 0.11 H (0.02-0.09) ng/mL 09/14/19 09/15/19 09/15/19 Range/Units 22:18 07:17 07:25 RBC (3.80-5.40) m/uL Hgb (11.4-16.0) gm/dL Hct (34.0-46.0) % MCHC (31.0-37.0) g/dL RDW (11.5-15.5) % Neutrophils # (1.3-7.7) k/uL Lymphocytes # (1.0-4.8) k/uL PT 13.6 H (9.0-12.0) sec INR 1.4 H (<1.2) Sodium (137-145) mmol/L BUN (7-17) mg/dL Creatinine (0.52-1.04) mg/dL Glucose (74-99) mg/dL POC Glucose (mg/dL) 460 H 339 H (75-99) mg/dL Procalcitonin (0.02-0.09) ng/mL 09/15/19 09/15/19 Range/Units 07:25 07:25 RBC 3.60 L (3.80-5.40) m/uL Hgb 9.2 L (11.4-16.0) gm/dL Hct 29.9 L (34.0-46.0) % MCHC 30.8 L (31.0-37.0) g/dL RDW 16.7 H (11.5-15.5) % Neutrophils # 8.8 H (1.3-7.7) k/uL Lymphocytes # 0.6 L (1.0-4.8) k/uL PT (9.0-12.0) sec INR (<1.2) Sodium 136 L (137-145) mmol/L BUN 57 H (7-17) mg/dL Creatinine 1.42 H (0.52-1.04) mg/dL Glucose 316 H (74-99) mg/dL POC Glucose (mg/dL) (75-99) mg/dL Procalcitonin (0.02-0.09) ng/mL Microbiology - Last 24 Hours (Table) 09/11/19 17:15 Blood Culture - Preliminary Blood No Growth after 72 hours Assessment and Plan Assessment: #1. Acute exacerbation of COPD/chronic bronchial asthma, moderately persistent, with tracheobronchitis, possibly related to Pseudomonas. Chest x-ray shows diffuse interstitial opacity, mild pulmonary vascular congestion, and mild patchy opacity at the lung bases, probably related to atelectasis. Patient has previous history of recurrent pseudomonal infections. Sputum cultures revealing gram-negative bacilli thus far. Currently on cefepime #2. Chronic hypoxic respiratory failure related to advanced COPD #3. 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 Diabetes mellitus type 2 #5. Paroxysmal atrial fibrillation on Coumadin, current rhythm is sinus, patient is on Coumadin 5 mg daily, admission INR subtherapeutic at 1.0 #6. Chronic kidney disease, stage II #7. Hypertension #8. Osteoarthritis #9. Hypothyroidism #10. Coarse interstitial changes present on the chest x-ray rule out underlying fibrosis/scarring #11. Steroid-induced hyperglycemia Plan: The patient was seen and evaluated by Dr. Chow Continue the current treatment plan Increase her activity as tolerated We will continue to follow I, the cosigning physician, performed a history & physical examination of the patient. Lungs sounds with bilateral end expiratory wheeze, few scattered rhonchi. Maintaining good O2 saturations in the 90s on 2 L/m per nasal cannula. I discussed the assessment and plan of care with my nurse practitioner, Su Arias. I attest to the above note as dictated by her.
[2019-09-15 11:45] LABS: Glucose,Whole Blood 386 mg/dL (75-99)
[2019-09-15] MEDS: DEXAMETHASONE SOD PHOSPHATE 4 MG/ML 1 ML VIAL IV SCH ×2 (11:52→22:07)
--- NOTE | 2019-09-15 13:05 | PN ---
PROGRESS NOTE DATE OF SERVICE: 09/15/2019 This 74-year-old woman who was admitted with COPD and multiple other medical issues is being closely monitored. The patient had gram-negative bacilli in the sputum. No chest pain. No palpitation. Final ID is pending. Patient is on cefepime. PAST MEDICAL HISTORY: Reviewed. REVIEW OF SYMPTOMS: CARDIOVASCULAR: As mentioned earlier. Respiration: As mentioned earlier. GI. As mentioned. G: No dysuria. NERVOUS SYSTEM: No numbness or weakness. CURRENT MEDICATIONS: Reviewed and include: 1. DuoNeb. 2. Xanax. 3. Lipitor. 4. Symbicort. 5. Cefepime. 6. Celexa. 7. Decadron. 8. Iron sulfate. 9. Lasix. 10.Mucinex. 11.Levemir. 12.Synthroid. 13.Claritin. 14.Protonix. 15.K-Dur. 16.Ultram. 17.Coumadin. PHYSICAL EXAMINATION: Alert and oriented times three. Pulse 91, blood pressure 130/77, respirations 18, temperature 97.7, pulse ox 98% on 2 L. HEENT: Conjunctivae normal. NECK: No JVD. CARDIOVASCULAR: S1, S2 muffled. RESPIRATIONS: Breath sounds diminished in the bases. A few scattered rhonchi and crackles. ABDOMEN: Soft, nontender. LEGS are no edema. No swelling. NERVOUS SYSTEM: No focal deficits. LABS: WBC 9.2, hemoglobin 9.2. INR is 1.4. Sodium 136. ASSESSMENT: 1. Chronic obstructive pulmonary disease acute exacerbation with bibasilar pneumonia possibly gram-negative. 2. History of previous Pseudomonas infection. 3. Paroxysmal atrial fibrillation. 4. Chest pain possibly musculoskeletal. 5. History of congestive heart failure, ejection fraction unknown. 6. Diabetes mellitus type 2. 7. Gastroesophageal reflux disease. 8. Hearing defects. 9. Hypertension. 10.History of degenerative joint disease. 11.History of pneumonia. 12.Hypothyroidism. 13.History of retinal hole. 14.History of hiatal hernia. 15.History of chronic hypoxic respiratory on home O2. 16.History of recent pulmonary infection with Pseudomonas. 17.History of MDRO. 18.History of cholecystectomy. 19.History of hysterectomy. 20.History of anxiety/panic disorder. 21.Obesity with body mass index 38.2. RECOMMENDATIONS AND DISCUSSION: I recommend to continue current medications, management and symptomatic treatment. Continue the antibiotics. Await final ID of the organisms in the sputum culture. Otherwise, continue to monitor. Guarded prognosis. We will can hold the patient until the cultures are cultures are sorted out. Guarded prognosis. Further recommendations to follow. MMODL / IJN: [id number] /
--- NOTE | 2019-09-15 13:41 | PN ---
PROGRESS NOTE DATE OF SERVICE: 09/15/2019 REASON FOR FOLLOWUP: Patient has COPD, tracheobronchitis and question of pneumonia. INTERVAL HISTORY: Patient is currently afebrile. The patient is breathing more comfortably. The patient did have a cough, though decreased intensity, less productive. Some yellowish sputum. No hemoptysis. No chest pain. No abdominal pain. No diarrhea. PHYSICAL EXAMINATION: Blood pressure 153/67, pulse of 83, temperature 98. She is 98% on 2 L nasal cannula. General description is an elderly female up in the bed in no distress. Respiratory system: Unlabored breathing, decreased intensity in breath sounds with occasional wheeze. Heart S1, S2. Regular rate and rhythm. Abdomen soft, no tenderness. LABS: Hemoglobin 9.1, white count 9.9, BUN of 57, creatinine 1.42. Sputum showing gram- negative bacilli. DIAGNOSTIC IMPRESSION AND PLAN: Patient admitted to the hospital with difficulty breathing and cough in this patient who did have a COPD exacerbation with tracheobronchitis. Underlying pneumonia not entirely excluded. The patient is covered cefepime while waiting for the sputum culture to finalize and monitor clinical course closely. MMODL / IJN: [id number] /
[2019-09-15 17:08] LABS: Glucose,Whole Blood 281 mg/dL (75-99)
[2019-09-15] MEDS ORDERED: WARFARIN 7.5 MG TAB PO ONE (18:00)
[2019-09-15] MEDS: MONTELUKAST 10 MG TAB PO SCH (20:34)
[2019-09-15 20:37] LABS: Glucose,Whole Blood 321 mg/dL (75-99)
[2019-09-16] MEDS: LEVOTHYROXINE 50 MCG TAB PO SCH (05:21)
[2019-09-16 07:14] LABS: Glucose,Whole Blood 325 mg/dL (75-99)
[2019-09-16] MEDS: INSULIN ASPART (NovoLOG) 100 UNIT/ML VIAL SQ SCH ×4 (07:39→20:53)
[2019-09-16] MEDS: ATORVASTATIN 10 MG TAB PO SCH (07:40)
[2019-09-16] MEDS: PANTOPRAZOLE 40 MG TABLET PO SCH (07:40)
[2019-09-16] MEDS: ALPRAZolam 0.5 MG TAB PO SCH ×3 (07:40→22:41)
[2019-09-16] MEDS: CEFEPIME 2 GM in SODIUM CHLORIDE 0.9% 100 ML IVPB SCH (07:40)
[2019-09-16] MEDS: DILTIAZEM CD 180 MG CAP.ER.24H PO SCH (07:41)
[2019-09-16] MEDS: FERROUS SULFATE 325 MG TAB PO SCH (07:41)
[2019-09-16] MEDS: CITALOPRAM HYDROBROMIDE 20 MG TAB PO SCH (07:41)
[2019-09-16] MEDS: LOSARTAN 50 MG TAB PO SCH (07:42)
[2019-09-16] MEDS: FUROSEMIDE 40 MG TAB PO SCH ×2 (07:42→16:46)
[2019-09-16] MEDS: INSULIN DETEMIR (LEVEMIR) 100 UNIT/ML SYR SQ SCH (07:42)
[2019-09-16] MEDS: POTASSIUM CHLORIDE ER 20 MEQ TAB.ER PO SCH ×2 (07:42→20:54)
[2019-09-16] MEDS: LORATADINE 10 MG TAB PO SCH (07:42)
[2019-09-16 08:11] LABS: INR 1.7 (<1.2); Prothrombin Time 16.8 sec (9.0-12.0)
--- NOTE | 2019-09-16 08:27 | XR ---
EXAMINATION TYPE: XR chest 1V portable DATE OF EXAM: 09/16/2019 HISTORY: Cough, congestion. REFERENCE: Previous study dated 09/11/2019. FINDINGS: The lungs are overinflated. The heart is enlarged. There is mild vascular congestion. There is no josé miguel edema. IMPRESSION: 1. CARDIOMEGALY. 2. VASCULAR CONGESTION. 3. I SUSPECT UNDERLYING COPD.
[2019-09-16] MEDS: IPRATROPIUM-ALBUTEROL 3 ML NEB INHALATION SCH ×4 (08:52→19:58)
[2019-09-16] MEDS: SYMBICORT 160-4.5 MCG INHALER INHALATION SCH ×2 (08:53→19:58)
--- NOTE | 2019-09-16 11:54 | P.PN ---
Subjective Progress Note Date: 09/16/19 Principal diagnosis: Acute exacerbation of chronic obstructive pulmonary disease 74-year-old patient with known history of advanced COPD/chronic bronchial asthma, moderately persistent on home oxygen at 2 L, previous history of pseudomonal pulmonary infections, history of atrial fibrillation on Coumadin, CHF unspecified, diabetes mellitus, GERD/reflux, hypertension, hypothyroidism, presented to the hospital on 09/11/2019 with complaints of 2 day history of worsening shortness of breath, cough, congestion, wheezing. Denied any chest pain or palpitations, denies any increased edema in her lower extremities, patient does have some chronic venous stasis changes and some chronic swelling in her lower extremities. Denied any fever or chills. No nausea vomiting or diarrhea. Chest x-ray reveals diffuse interstitial opacity, mild pulmonary congestion, and mild patchy opacity at the lung bases, probably related to atelectasis. Patient sounds very congested and, coarse, and wheezy. She was started on a combination of cefepime and vancomycin for antibiotic coverage. She has not able to bring up any sputum. Her admission lab work showed white blood cell count 7.2, hemoglobin is 10.4, d-dimer was negative at 0.48, electrolytes were within normal limits, B1 is 27, creatinine is 1.14, troponin is negative at less than 0.012, LFTs are within normal limits. Patient was started on IV diuretics, IV steroids, namely bronchodilators and antibiotics. On 09/13/2019 patient seen in follow-up on general medical oncology floor, she still required bronchospastic and congested, not bringing up much sputum, she remains on 2 L of oxygen with a pulse ox 97%, she does become dyspneic with exertion, but does not appear to be in any acute distress, she continues on cefepime for empiric antibiotic coverage, she also developed significant steroid-induced hyperglycemia with blood sugar in the 300s. She is currently on IV Solu-Medrol 60 mg every 6 hours, and nebulized bronchodilators, which can taper the dose of steroids down, and switch her to oral Decadron. Sputum c ulture was sent, showing moderate epithelial cells, moderate gram-negative bacilli and rare gram-positive cocci. Blood culture has shown no growth. The patient is seen today 09/14/2019 in follow-up on the regular medical floor. She is currently sitting up in bed. Awake and alert in no acute distress. Breathing bit easier today compared to yesterday. Still somewhat bronchospastic and wheezy. Dyspneic with minimal exertion. Maintaining O2 saturations in the 90s on 2 L/m per nasal cannula. Sputum culture positive for gram-negative bacilli. Blood cultures revealing no growth. White count 12.2. Hemoglobin 9.1. INR 1.3. Sodium 135. Potassium 4.5. Creatinine 1.65. Pro-calcitonin 0. 11. She's currently on cefepime. She remains on bronchodilators, IV Decadron, oral diuretics. Anticoagulated with warfarin. The patient is seen today 09/15/2019 in follow-up on the regular medical floor. Awake and alert in no acute distress. Breathing better today. Not quite back to her baseline. She is maintaining good O2 saturations in the 90s on 2 L/m per nasal cannula. She's afebrile. Hemodynamically stable. Urine culture positive for gram-negative bacilli. White count 9.9. Hemoglobin 9.2. INR 1.4. Sodium 136. Potassium 4.9. Creatinine 1.42. She remains on Symbicort, DuoNeb's, Decadron, Singulair, Mucinex. Remains on warfarin. The patient is seen today 09/15/2019 follow-up. She is sitting up in bed. Awake and alert in no acute distress. She is still bronchospastic and wheezy. No significant improvement. Chest x-ray reveals COPD, mild vascular congestion, cardiomegaly. Sputum cultures positive for pseudomonas. Blood culture reveals no growth. INR 1.7. She is continued on Symbicort, DuoNeb's, Decadron, antibiotics in the form of cefepime, oral diuretics. Anticoagulated with warfarin. Objective - Vital Signs Vital signs: Vital Signs Temp 97.7 F 09/16/19 04:42 Pulse 80 09/16/19 09:06 Resp 19 09/16/19 04:42 BP 166/70 09/16/19 04:42 Pulse Ox 99 09/16/19 04:42 Intake & Output 09/15/19 09/16/19 09/16/19 18:59 06:59 18:59 Intake Total 100 Balance 100 Weight 107.5 kg Intake: Intake, IV Titration 100 Amount Cefepime 2 gm In Sodium 100 Chloride 0.9% 100 ml @ 200 mls/hr IVPB Q12HR [facility] Rx#:[id number] Other: Voiding Method Toilet Toilet Bedside Commode Bedside Commode # Voids 2 1 1 - Exam - Exam GENERAL EXAM: Alert, very pleasant, 74-year-old female patient, on 3 L of oxygen with a pulse ox of 99%, comfortable in no apparent distress. HEAD: Normocephalic/atraumatic. EYES: Normal reaction of pupils, equal size. Conjunctiva pink, sclera white. NOSE: Clear with pink turbinates. THROAT: No erythema or exudates. NECK: No masses, no JVD, no thyroid enlargement, no adenopathy. CHEST: No chest wall deformity. Symmetrical expansion. LUNGS: Equal air entry with bilateral end expiratory wheezes and rhonchi CVS: Regular rate and rhythm, normal S1 and S2, no gallops, no murmurs, no rubs ABDOMEN: Soft, nontender. No hepatosplenomegaly, normal bowel sounds, no guarding or rigidity. EXTREMITIES: No clubbing, chronic venous stasis changes involving lower extremities, and mild pretibial edema, no cyanosis, 2+ pulses and upper and lower extremities. MUSCULOSKELETAL: Muscle strength and tone normal. SPINE: No scoliosis or deformity SKIN: No rashes CENTRAL NERVOUS SYSTEM: No focal deficits, tone is normal in all 4 extremities. PSYCHIATRIC: Alert and oriented -3. Appropriate affect. Intact judgment and insight. - Labs CBC & Chem 7: 09/15/19 07:25 09/15/19 07:25 Labs: Abnormal Lab Results - Last 24 Hours (Table) 09/15/19 09/15/19 09/16/19 Range/Units 17:05 20:35 07:12 PT (9.0-12.0) sec INR (<1.2) POC Glucose (mg/dL) 281 H 321 H 325 H (75-99) mg/dL 09/16/19 Range/Units 07:51 PT 16.8 H (9.0-12.0) sec INR 1.7 H (<1.2) POC Glucose (mg/dL) (75-99) mg/dL Microbiology - Last 24 Hours (Table) 09/12/19 09:23 Gram Stain - Final Sputum Sputum Culture - Final Pseudomonas aeruginosa 09/11/19 17:15 Blood Culture - Preliminary Blood No Growth after 96 hours Assessment and Plan Assessment: #1. Acute exacerbation of COPD/chronic bronchial asthma, moderately persistent, with tracheobronchitis, possibly related to Pseudomonas. Chest x-ray shows diffuse interstitial opacity, mild pulmonary vascular congestion, and mild patchy opacity at the lung bases, probably related to atelectasis. Patient has previous history of recurrent pseudomonal infections. Sputum cultures positive for pseudomonas aeruginosa. Currently on cefepime #2. Chronic hypoxic respiratory failure related to advanced COPD #3. 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 Diabetes mellitus type 2 #5. Paroxysmal atrial fibrillation on Coumadin, current rhythm is sinus, patient is on Coumadin 5 mg daily, admission INR subtherapeutic at 1.0 #6. Chronic kidney disease, stage II #7. Hypertension #8. Osteoarthritis #9. Hypothyroidism #10. Coarse interstitial changes present on the chest x-ray rule out underlying fibrosis/scarring #11. Steroid-induced hyperglycemia Plan: The patient was seen and evaluated by Dr. Chow Discontinue cefepime Initiate Fortaz Continue the current pulmonary medications May need bronchoscopy if no significant improvement Increase her activity as tolerated We will continue to follow I, the cosigning physician, performed a history & physical examination of the patient. Lungs sounds with bilateral end expiratory wheeze, few scattered rhonchi. Maintaining good O2 saturations in the 90s on 3 L/m per nasal cannula. I discussed the assessment and plan of care with my nurse practitioner, Su Arias. I attest to the above note as dictated by her.
[2019-09-16 11:58] LABS: Glucose,Whole Blood 292 mg/dL (75-99)
[2019-09-16] MEDS: DEXAMETHASONE SOD PHOSPHATE 4 MG/ML 1 ML VIAL IV SCH ×2 (12:09→22:40)
[2019-09-16] MEDS ORDERED: CEFTAZIDIME 1 GM IVPB SCH (13:00)
[2019-09-16] MEDS ORDERED: SODIUM CHLORIDE 0.9% IVPB SCH (13:00)
--- NOTE | 2019-09-16 15:00 | P.PN ---
Subjective Progress Note Date: 09/16/19 Principal diagnosis: This is a 74-year-old female who was recently admitted with Increasing shortness of breath along with some chest pain in the lower part of the chest and epigas trium and is being closely monitored. Patient has a history of multiple medical problems with COPD, CHF, diabetes mellitus, hypertension, with history of pneumonia in the past. Patient continues to be quite dyspneic with exertion and is currently maintained on 2-3 L of oxygen via nasal cannula. She is oxygen dependent in the outpatient setting. Patient has been having difficulty making elderly to the bathroom due to severe dyspnea and has been using the bedside commode. Patient also Continues to be quite wheezy on exam and is currently maintained on IV steroids along with bronchodilators. Pulmonary is following. Infectious disease was consulted and currently pending at this time. Patient is maintained on IV antibiotics in the form of cefepime and will continue at this time. Review of systems: Constitutional: No reports of fatigue, fevers, or chills Cardiovascular: No reports of chest pain or palpitations Respiratory: Report shortness of breath with exertion, reports cough GI: No reports of nausea, vomiting, or diarrhea : No reports of dysuria or retention Neurovascular: No reports of weakness or numbness 09/13/2019 Patient is seen and evaluated in follow-up continues to be dyspneic with exertion requiring 2-3 L of oxygen via nasal cannula. Patient's baseline is 2 L of oxygen in the outpatient setting. Patient is being monitored and followed closely by pulmonary as well. Patient continues on IV steroids and sugars have been elevated. Will continue to monitor closely with long-acting along with sliding scale and adjust accordingly. Patient is currently maintained on cefepime and will continue at this time. Preliminary sputum culture showing gram-negative bacilli and will await finalization of cultures. Blood cultures remain negative. Patient is also currently maintained on IV Lasix and creatinine continues to elevate with current creatinine today is 1.37. Will repeat a.m. labs and Lasix is being transitioned oral Lasix. Patient states she normally takes Lasix 40 mg daily and is currently on twice daily at this time. Patient is denying any chest pain, worsening shortness of breath, or palpitations. Patient is afebrile. No reports of nausea or vomiting and patient is tolerating diet. 09/14/2019 Patient seen in follow up today and continues to be dyspneic and wheezing although has improved. Patient is able to walk to the bathroom without becoming severely dyspneic. Patient is maintained on IV antibiotics in the form of cefepime and will continue at this time. Sputum cultures preliminary showing gram negative bacilli. Infectious disease is following along with pulmonary. Patient is also maintained on IV steroids along with breathing inhalational treatments and will continue. Current creatinine is rising at 1.65 today and being closely monitored. Patient denies any nausea or vomiting and tolerating diet. Patient is afebrile. Patient denies any chest pain or palpitations at this time. 09/16/2019 She was seen and evaluated in follow-up and continues with a cough, wheezing, dyspnea on exertion. Pulmonary following closely. Possible discussion of bronchoscopy with pulmonary as her sputum cultures finalized showing Pseudomo eh. Infectious disease is following as well and IV antibiotics have been switched to Ceftazidime and will continue at this time. Patient is also maintained on bronchodilators along with Decadron IV. Patient's INR today is 1.7 and will continue with Coumadin at this time. Will repeat a.m. labs as patient is maintained on Lasix 40 mg twice daily by mouth. Currently patient denies any chest pain, worsening shortness of breath, or palpitations. Afebrile. No reports of nausea or vomiting patient is tolerating diet. Objective - Vital Signs Vital signs: Vital Signs Temp 98.3 F 09/16/19 12:57 Pulse 88 09/16/19 13:32 Resp 20 09/16/19 12:57 BP 167/76 09/16/19 12:57 Pulse Ox 97 09/16/19 12:57 Intake & Output 09/15/19 09/16/19 09/16/19 18:59 06:59 18:59 Intake Total 100 900 Balance 100 900 Weight 107.5 kg Intake: Intake, IV Titration 100 Amount Cefepime 2 gm In Sodium 100 Chloride 0.9% 100 ml @ 200 mls/hr IVPB Q12HR [facility] Rx#:[id number] Oral 900 Other: Voiding Method Toilet Toilet Bedside Commode Bedside Commode # Voids 2 1 2 - Exam Gen: This is a 74-year-old female sitting up in the bed, awake, alert and oriented 3, well-developed, well-nourished. HEENT: Head is atraumatic, normocephalic. Pupils equal, round. Sclerae is anicteric. NECK: Supple. No JVD. No lymphadenopathy. No thyromegaly. LUNGS: Diminished breath sounds bilaterally with some scattered rhonchi noted. Expiratory wheezing noted on exam as well. No intercostal retractions. Wheezing slightly improved. HEART: S1, S2 are muffled. ABDOMEN: Soft. Bowel sounds are present. No masses. No tenderness. EXTREMITIES: No pedal edema. No calf tenderness. No bilateral lower extremity swelling noted NEUROLOGICAL: Patient is awake, alert and oriented x3. Cranial nerves 2 through 12 are grossly intact. - Labs CBC & Chem 7: 09/15/19 07:25 09/15/19 07:25 Labs: Abnormal Lab Results - Last 24 Hours (Table) 09/15/19 09/15/19 09/16/19 Range/Units 17:05 20:35 07:12 PT (9.0-12.0) sec INR (<1.2) POC Glucose (mg/dL) 281 H 321 H 325 H (75-99) mg/dL 09/16/19 09/16/19 Range/Units 07:51 11:56 PT 16.8 H (9.0-12.0) sec INR 1.7 H (<1.2) POC Glucose (mg/dL) 292 H (75-99) mg/dL Microbiology - Last 24 Hours (Table) 09/12/19 09:23 Gram Stain - Final Sputum Sputum Culture - Final Pseudomonas aeruginosa 09/11/19 17:15 Blood Culture - Preliminary Blood No Growth after 96 hours Assessment and Plan Assessment: Chronic obstructive pulmonary disease and bronchial asthma, acute exacerbation, with basilar pneumonia, tracheobronchitis, possibly gram-negative Paroxysmal atrial fibrillation Chest pain, possibly musculoskeletal History of congestive heart failure; ejection fraction unknown Diabetes mellitus type 2 Gastroesophageal reflux disease Hearing deficit Hypertension History of degenerative joint disease History of pneumonia Hypothyroidism History of retinal hole History of hiatal hernia Chronic hypoxic respiratory failure, on home oxygen Recent pulmonary infection with Pseudomonas History of multidrug-resistant organisms History of cholecystectomy Hysterectomy History of anxiety, panic disorder Obesity with a body mass index of 38.6 Recommendations and discussion: Recommend to continue current medications, management, and symptomatic treatment. Pulmonary following closely. Patient is maintained on bronchodilators and IV steroids and will continue at this time. Blood sugars continue to be elevated and will continue to monitor closely and titrate insulins as needed. Patient to increase activity as tolerated. Blood cultures remain negative. Sputum cultures finalized showing Pseudomonas aeruginosa. Infectious disease following. She will continue on IV antibiotics. Discussion of possible bronchoscopy if patient does not improve. Will repeat a.m. labs and monitor vital signs closely. Due to multiple complex medical issues, prognosis is guarded. Further recommendations to follow. Possible discharge in 24-48 hours.
[2019-09-16 17:04] LABS: Glucose,Whole Blood 493 mg/dL (75-99)
[2019-09-16] MEDS ORDERED: WARFARIN 7.5 MG TAB PO ONE (18:00)
[2019-09-16 20:23] LABS: Glucose,Whole Blood 347 mg/dL (75-99)
[2019-09-16] MEDS: MONTELUKAST 10 MG TAB PO SCH (20:54)
[2019-09-16] MEDS: SODIUM CHLORIDE 0.9% IVPB SCH (23:49)
[2019-09-16] MEDS: CEFTAZIDIME 2 GM IVPB SCH (23:49)
[2019-09-17] MEDS ORDERED: SODIUM CHLORIDE 0.9% IVPB SCH ×2
[2019-09-17] MEDS ORDERED: CEFTAZIDIME 1 GM IVPB SCH ×2
--- NOTE | 2019-09-17 01:00 | PN ---
PROGRESS NOTE DATE OF SERVICE: 09/16/2019 REASON FOR FOLLOWUP: Pseudomonas tracheobronchitis. INTERVAL HISTORY: The patient is currently afebrile. The patient mentioned she is not feeling as good as she was yesterday. Still complaining of increasing shortness of breath. Patient did have a cough, but it is not as productive. No nausea, no vomiting. No abdominal pain or diarrhea. PHYSICAL EXAMINATION: Blood pressure is 158/66, pulse of 83, temperature 98. She is 98% on room air. General description is an elderly female up in the bed in no distress. RESPIRATORY SYSTEM: Unlabored breathing, decreased intensity of breath sounds. Occasional wheeze. HEART: S1, S2. Regular rate and rhythm. ABDOMEN: Soft, no tenderness. LABS: Sputum has been finalized with intermediate sensitivity cefepime though sensitive to Fortaz. DIAGNOSTIC IMPRESSION AND PLAN: Patient with Pseudomonas tracheobronchitis with chronic obstructive pulmonary disease exacerbation. Antibiotic has been adjusted to Fortaz. However, the dose should be adjusted to 2 grams q.8 to cover for the Pseudomonas and monitor clinical course closely. MMODL / IJN: [id number] /
[2019-09-17] MEDS: LEVOTHYROXINE 50 MCG TAB PO SCH (06:27)
[2019-09-17 07:08] LABS: Glucose,Whole Blood 305 mg/dL (75-99)
[2019-09-17] MEDS: PANTOPRAZOLE 40 MG TABLET PO SCH (08:25)
[2019-09-17] MEDS: DILTIAZEM CD 180 MG CAP.ER.24H PO SCH (08:25)
[2019-09-17] MEDS: ALPRAZolam 0.5 MG TAB PO SCH ×3 (08:25→21:09)
[2019-09-17] MEDS: LORATADINE 10 MG TAB PO SCH (08:25)
[2019-09-17] MEDS: FUROSEMIDE 40 MG TAB PO SCH ×2 (08:25→16:04)
[2019-09-17] MEDS: ATORVASTATIN 10 MG TAB PO SCH (08:25)
[2019-09-17] MEDS: POTASSIUM CHLORIDE ER 20 MEQ TAB.ER PO SCH ×2 (08:25→20:09)
[2019-09-17] MEDS: LOSARTAN 50 MG TAB PO SCH (08:25)
[2019-09-17] MEDS: CITALOPRAM HYDROBROMIDE 20 MG TAB PO SCH (08:25)
[2019-09-17] MEDS: INSULIN ASPART (NovoLOG) 100 UNIT/ML VIAL SQ SCH ×4 (08:26→21:09)
[2019-09-17] MEDS: FERROUS SULFATE 325 MG TAB PO SCH (08:26)
[2019-09-17] MEDS: INSULIN DETEMIR (LEVEMIR) 100 UNIT/ML SYR SQ SCH (08:26)
[2019-09-17] MEDS: CEFTAZIDIME 2 GM IVPB SCH ×3 (08:43→23:40)
[2019-09-17] MEDS: SODIUM CHLORIDE 0.9% IVPB SCH ×3 (08:43→23:40)
[2019-09-17] MEDS: SYMBICORT 160-4.5 MCG INHALER INHALATION SCH ×2 (08:52→18:59)
[2019-09-17] MEDS: IPRATROPIUM-ALBUTEROL 3 ML NEB INHALATION SCH ×4 (08:52→18:58)
[2019-09-17 09:09] LABS: Anisocytosis Slight; Basophils % (A) 0 %; Eosinophils % (A) 1 %; HCT 32.3 % (34.0-46.0); HGB 10.4 gm/dL (11.4-16.0); Hypochromasia Slight; Lymphocytes # (A) 0.8 k/uL (1.0-4.8); Lymphocytes % (A) 10 %; MCH 26.7 pg (25.0-35.0); MCHC 32.1 g/dL (31.0-37.0); MCV 83.3 fL (80.0-100.0); Mean Platelet Volume 7.3; Monocytes # (A) 0.4 k/uL (0-1.0); Monocytes % (A) 5 %; Neutrophils # (A) 6.9 k/uL (1.3-7.7); Neutrophils % (A) 84 %; Platelet Count 187 k/uL (150-450); RBC 3.88 m/uL (3.80-5.40); RDW 16.6 % (11.5-15.5); WBC 8.2 k/uL (3.8-10.6)
[2019-09-17 09:18] LABS: INR 1.9 (<1.2)
[2019-09-17 09:22] LABS: Calcium 9.4 mg/dL (8.4-10.2); Potassium 4.7 mmol/L (3.5-5.1)
[2019-09-17 11:18] LABS: Glucose,Whole Blood 274 mg/dL (75-99)
[2019-09-17] MEDS: DEXAMETHASONE SOD PHOSPHATE 4 MG/ML 1 ML VIAL IV SCH (11:19)
[2019-09-17] MEDS ORDERED: ALPRAZolam 0.5 MG TAB PO STA (12:52)
--- NOTE | 2019-09-17 14:06 | P.PN ---
Subjective Progress Note Date: 09/17/19 Principal diagnosis: Dyspnea, cough, wheezing and congestion 74-year-old patient with known history of advanced COPD/chronic bronchial asthma, moderately persistent on home oxygen at 2 L, previous history of pseudomonal pulmonary infections, history of atrial fibrillation on Coumadin, CHF unspecified, diabetes mellitus, GERD/reflux, hypertension, hypothyroidism, presented to the hospital on 09/11/2019 with complaints of 2 day history of worsening shortness of breath, cough, congestion, wheezing. Denied any chest pain or palpitations, denies any increased edema in her lower extremities, patient does have some chronic venous stasis changes and some chronic swelling in her lower extremities. Denied any fever or chills. No nausea vomiting or diarrhea. Chest x-ray reveals diffuse interstitial opacity, mild pulmonary congestion, and mild patchy opacity at the lung bases, probably related to atelectasis. Patient sounds very congested and, coarse, and wheezy. She was started on a combination of cefepime and vancomycin for antibiotic coverage. She has not able to bring up any sputum. Her admission lab work showed white blood cell count 7.2, hemoglobin is 10.4, d-dimer was negative at 0.48, electrolytes were within normal limits, B1 is 27, creatinine is 1.14, troponin is negative at less than 0.012, LFTs are within normal limits. Patient was started on IV diuretics, IV steroids, namely bronchodilators and antibiotics. On 09/13/2019 patient seen in follow-up on general medical oncology floor, she still required bronchospastic and congested, not bringing up much sputum, she remains on 2 L of oxygen with a pulse ox 97%, she does become dyspneic with exe rtion, but does not appear to be in any acute distress, she continues on cefepime for empiric antibiotic coverage, she also developed significant steroid-induced hyperglycemia with blood sugar in the 300s. She is currently on IV Solu-Medrol 60 mg every 6 hours, and nebulized bronchodilators, which can taper the dose of steroids down, and switch her to oral Decadron. Sputum culture was sent, showing moderate epithelial cells, moderate gram-negative bacilli and rare gram-positive cocci. Blood culture has shown no growth. On 09/17/2019 patient seen in follow-up on general medical oncology floor, she states she is about 50% better, not as wheezy, breathing easier, she is on 2 L of oxygen a pulse ox of 100%, she is afebrile, hemodynamically she stable. Her sputum culture showed pseudomonas aeruginosa, and patient was initially treated with cefepime, and is currently the patient is on Fortaz, and ID service is following, patient continues on nebulized bronchodilators, and IV Decadron 4 mg every 12 hours. Today's labs have been reviewed. Renal Profile is improving. Her last chest x-ray shows cardiomegaly, vascular congestion, and patient remains on 40 of Lasix twice daily. No significant lower extremity edema, her weight is coming down and is down to 104.1 kg, down 3.4 kg in the last 24 hours. Objective - Vital Signs Vital signs: Vital Signs Temp 97.8 F 09/17/19 05:40 Pulse 88 09/17/19 12:14 Resp 18 09/17/19 05:40 BP 147/70 09/17/19 10:35 Pulse Ox 100 09/17/19 08:53 Intake & Output 09/16/19 09/17/19 09/17/19 18:59 06:59 18:59 Intake Total 900 240 Balance 900 240 Weight 104.1 kg Intake: Oral 900 240 Other: Voiding Method Toilet Toilet Bedside Commode # Voids 2 2 - Exam GENERAL EXAM: Alert, very pleasant, 74-year-old white female, on 2 L of oxygen with a pulse ox of 100%, comfortable in no apparent distress. HEAD: Normocephalic/atraumatic. EYES: Normal reaction of pupils, equal size. Conjunctiva pink, sclera white. NOSE: Clear with pink turbinates. THROAT: No erythema or exudates. NECK: No masses, no JVD, no thyroid enlargement, no adenopathy. CHEST: No chest wall deformity. Symmetrical expansion. LUNGS: Equal air entry with diffuse wheezes and rhonchi CVS: Regular rate and rhythm, normal S1 and S2, no gallops, no murmurs, no rubs ABDOMEN: Soft, nontender. No hepatosplenomegaly, normal bowel sounds, no guarding or rigidity. EXTREMITIES: No clubbing, chronic venous stasis changes involving lower extremities, and mild pretibial edema, no cyanosis, 2+ pulses and upper and lower extremities. MUSCULOSKELETAL: Muscle strength and tone normal. SPINE: No scoliosis or deformity SKIN: No rashes CENTRAL NERVOUS SYSTEM: Alert and oriented -3. No focal deficits, tone is normal in all 4 extremities. PSYCHIATRIC: Alert and oriented -3. Appropriate affect. Intact judgment and insight. - Labs CBC & Chem 7: 09/17/19 08:06 09/17/19 08:06 Labs: Abnormal Lab Results - Last 24 Hours (Table) 09/16/19 09/16/19 09/17/19 Range/Units 17:01 20:21 07:06 Hgb (11.4-16.0) gm/dL Hct (34.0-46.0) % RDW (11.5-15.5) % Lymphocytes # (1.0-4.8) k/uL PT (9.0-12.0) sec INR (<1.2) Sodium (137-145) mmol/L Chloride (98-107) mmol/L BUN (7-17) mg/dL Creatinine (0.52-1.04) mg/dL Glucose (74-99) mg/dL POC Glucose (mg/dL) 493 H 347 H 305 H (75-99) mg/dL 09/17/19 09/17/19 09/17/19 Range/Units 08:06 08:06 08:06 Hgb 10.4 L (11.4-16.0) gm/dL Hct 32.3 L (34.0-46.0) % RDW 16.6 H (11.5-15.5) % Lymphocytes # 0.8 L (1.0-4.8) k/uL PT 19.0 H (9.0-12.0) sec INR 1.9 H (<1.2) Sodium 134 L (137-145) mmol/L Chloride 95 L (98-107) mmol/L BUN 57 H (7-17) mg/dL Creatinine 1.17 H (0.52-1.04) mg/dL Glucose 283 H (74-99) mg/dL POC Glucose (mg/dL) (75-99) mg/dL 09/17/19 Range/Units 11:17 Hgb (11.4-16.0) gm/dL Hct (34.0-46.0) % RDW (11.5-15.5) % Lymphocytes # (1.0-4.8) k/uL PT (9.0-12.0) sec INR (<1.2) Sodium (137-145) mmol/L Chloride (98-107) mmol/L BUN (7-17) mg/dL Creatinine (0.52-1.04) mg/dL Glucose (74-99) mg/dL POC Glucose (mg/dL) 274 H (75-99) mg/dL Microbiology - Last 24 Hours (Table) 09/12/19 09:23 Gram Stain - Final Sputum Sputum Culture - Final Pseudomonas aeruginosa 09/11/19 17:15 Blood Culture - Preliminary Blood No Growth after 120 hours Assessment and Plan Plan: Assessment: #1. Acute exacerbation of COPD/chronic bronchial asthma, moderately persistent, with tracheobronchitis, possibly related to Pseudomonas. Chest x-ray shows diffuse interstitial opacity, mild pulmonary vascular congestion, and mild patchy opacity at the lung bases, probably related to atelectasis. Patient has previous history of recurrent pseudomonal infections. #2. Chronic hypoxic respiratory failure related to advanced COPD #3. 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 Diabetes mellitus type 2 #5. Paroxysmal atrial fibrillation on Coumadin, current rhythm is sinus, patient is on Coumadin 5 mg daily, admission INR subtherapeutic at 1.0 #6. Chronic kidney disease, stage II #7. Hypertension #8. Osteoarthritis #9. Hypothyroidism #10. Coarse interstitial changes present on the chest x-ray rule out underlying fibrosis/scarring #11. Steroid-induced hyperglycemia Plan: Continue with current dose of oral Lasix, IV Decadron, nebulized bronchodilators and Fortaz. Patient feels that she is improving, and she is breathing easier and feeling better, we'll continue to monitor her for another 24 hours, and patient was given the option of proceeding with bronchoscopy with BAL if she fails to improve I performed a history & physical examination of the patient and discussed their management with my nurse practitioner, Maryjo Parisi. I reviewed the nurse practitioner's note and agree with the documented findings and plan of care. Lung sounds are positive for diffuse wheezes throughout the lung carrera. The findings and the impression was discussed with the patient. I attest to the documentation by the nurse practitioner. Time with Patient: Less than 30
--- NOTE | 2019-09-17 15:33 | P.PN ---
Subjective Progress Note Date: 09/17/19 Principal diagnosis: This is a 74-year-old female who was recently admitted with Increasing shortness of breath along with some chest pain in the lower part of the chest and epigas trium and is being closely monitored. Patient has a history of multiple medical problems with COPD, CHF, diabetes mellitus, hypertension, with history of pneumonia in the past. Patient continues to be quite dyspneic with exertion and is currently maintained on 2-3 L of oxygen via nasal cannula. She is oxygen dependent in the outpatient setting. Patient has been having difficulty making elderly to the bathroom due to severe dyspnea and has been using the bedside commode. Patient also Continues to be quite wheezy on exam and is currently maintained on IV steroids along with bronchodilators. Pulmonary is following. Infectious disease was consulted and currently pending at this time. Patient is maintained on IV antibiotics in the form of cefepime and will continue at this time. Review of systems: Constitutional: No reports of fatigue, fevers, or chills Cardiovascular: No reports of chest pain or palpitations Respiratory: Report shortness of breath with exertion, reports cough GI: No reports of nausea, vomiting, or diarrhea : No reports of dysuria or retention Neurovascular: No reports of weakness or numbness 09/13/2019 Patient is seen and evaluated in follow-up continues to be dyspneic with exertion requiring 2-3 L of oxygen via nasal cannula. Patient's baseline is 2 L of oxygen in the outpatient setting. Patient is being monitored and followed closely by pulmonary as well. Patient continues on IV steroids and sugars have been elevated. Will continue to monitor closely with long-acting along with sliding scale and adjust accordingly. Patient is currently maintained on cefepime and will continue at this time. Preliminary sputum culture showing gram-negative bacilli and will await finalization of cultures. Blood cultures remain negative. Patient is also currently maintained on IV Lasix and creatinine continues to elevate with current creatinine today is 1.37. Will repeat a.m. labs and Lasix is being transitioned oral Lasix. Patient states she normally takes Lasix 40 mg daily and is currently on twice daily at this time. Patient is denying any chest pain, worsening shortness of breath, or palpitations. Patient is afebrile. No reports of nausea or vomiting and patient is tolerating diet. 09/14/2019 Patient seen in follow up today and continues to be dyspneic and wheezing although has improved. Patient is able to walk to the bathroom without becoming severely dyspneic. Patient is maintained on IV antibiotics in the form of cefepime and will continue at this time. Sputum cultures preliminary showing gram negative bacilli. Infectious disease is following along with pulmonary. Patient is also maintained on IV steroids along with breathing inhalational treatments and will continue. Current creatinine is rising at 1.65 today and being closely monitored. Patient denies any nausea or vomiting and tolerating diet. Patient is afebrile. Patient denies any chest pain or palpitations at this time. 09/16/2019 She was seen and evaluated in follow-up and continues with a cough, wheezing, dyspnea on exertion. Pulmonary following closely. Possible discussion of bronchoscopy with pulmonary as her sputum cultures finalized showing Pseudomo eh. Infectious disease is following as well and IV antibiotics have been switched to Ceftazidime and will continue at this time. Patient is also maintained on bronchodilators along with Decadron IV. Patient's INR today is 1.7 and will continue with Coumadin at this time. Will repeat a.m. labs as patient is maintained on Lasix 40 mg twice daily by mouth. Currently patient denies any chest pain, worsening shortness of breath, or palpitations. Afebrile. No reports of nausea or vomiting patient is tolerating diet. 09/17/2019 Patient is seen and evaluated in follow-up and continues to have some coughing and wheezing although states her breathing has improved. Pulmonary following closely as well as infectious disease. Patient is currently maintained on IV antibiotics and will continue at this time. Culture showing Pseudomonas aeruginosa. There was a discussion about possible bronchoscopy if no improvement Although patient is reluctant at this time as she has some family emergencies to tend to. Patient will follow up with pulmonary in the outpatient setting to discuss possible bronchoscopy at that time. Currently patient has no chest pain, worsening shortness of breath, or palpitations. Patient remains afebrile. No reports of nausea or vomiting and patient is tolerating diet. Patient's blood sugars continue to be elevated and being controlled with sliding scale and long-acting and patient is currently maintained on steroids of Decadron at this time. Objective - Vital Signs Vital signs: Vital Signs Temp 98.4 F 09/17/19 11:40 Pulse 90 09/17/19 15:20 Resp 16 09/17/19 11:40 BP 164/77 09/17/19 11:40 Pulse Ox 98 09/17/19 11:40 Intake & Output 09/16/19 09/17/19 09/17/19 18:59 06:59 18:59 Intake Total 900 240 Balance 900 240 Weight 104.1 kg Intake: Oral 900 240 Other: Voiding Method Toilet Toilet Bedside Commode # Voids 2 2 1 - Exam Gen: This is a 74-year-old female sitting up in the bed, awake, alert and oriented 3, well-developed, well-nourished. HEENT: Head is atraumatic, normocephalic. Pupils equal, round. Sclerae is anicteric. NECK: Supple. No JVD. No lymphadenopathy. No thyromegaly. LUNGS: Diminished breath sounds bilaterally with some scattered rhonchi noted. Expiratory wheezing noted on exam as well. No intercostal retractions. Wheezing slightly improved. HEART: S1, S2 are muffled. ABDOMEN: Soft. Bowel sounds are present. No masses. No tenderness. EXTREMITIES: No pedal edema. No calf tenderness. No bilateral lower extremity swelling noted NEUROLOGICAL: Patient is awake, alert and oriented x3. Cranial nerves 2 through 12 are grossly intact. - Labs CBC & Chem 7: 09/17/19 08:06 09/17/19 08:06 Labs: Abnormal Lab Results - Last 24 Hours (Table) 09/16/19 09/16/19 09/17/19 Range/Units 17:01 20:21 07:06 Hgb (11.4-16.0) gm/dL Hct (34.0-46.0) % RDW (11.5-15.5) % Lymphocytes # (1.0-4.8) k/uL PT (9.0-12.0) sec INR (<1.2) Sodium (137-145) mmol/L Chloride (98-107) mmol/L BUN (7-17) mg/dL Creatinine (0.52-1.04) mg/dL Glucose (74-99) mg/dL POC Glucose (mg/dL) 493 H 347 H 305 H (75-99) mg/dL 09/17/19 09/17/19 09/17/19 Range/Units 08:06 08:06 08:06 Hgb 10.4 L (11.4-16.0) gm/dL Hct 32.3 L (34.0-46.0) % RDW 16.6 H (11.5-15.5) % Lymphocytes # 0.8 L (1.0-4.8) k/uL PT 19.0 H (9.0-12.0) sec INR 1.9 H (<1.2) Sodium 134 L (137-145) mmol/L Chloride 95 L (98-107) mmol/L BUN 57 H (7-17) mg/dL Creatinine 1.17 H (0.52-1.04) mg/dL Glucose 283 H (74-99) mg/dL POC Glucose (mg/dL) (75-99) mg/dL 09/17/19 Range/Units 11:17 Hgb (11.4-16.0) gm/dL Hct (34.0-46.0) % RDW (11.5-15.5) % Lymphocytes # (1.0-4.8) k/uL PT (9.0-12.0) sec INR (<1.2) Sodium (137-145) mmol/L Chloride (98-107) mmol/L BUN (7-17) mg/dL Creatinine (0.52-1.04) mg/dL Glucose (74-99) mg/dL POC Glucose (mg/dL) 274 H (75-99) mg/dL Microbiology - Last 24 Hours (Table) 09/12/19 09:23 Gram Stain - Final Sputum Sputum Culture - Final Pseudomonas aeruginosa 09/11/19 17:15 Blood Culture - Preliminary Blood No Growth after 120 hours Assessment and Plan Assessment: Chronic obstructive pulmonary disease and bronchial asthma, acute exacerbation, with basilar pneumonia, tracheobronchitis, possibly gram-negative Paroxysmal atrial fibrillation Chest pain, possibly musculoskeletal History of congestive heart failure; ejection fraction unknown Diabetes mellitus type 2 Gastroesophageal reflux disease Hearing deficit Hypertension History of degenerative joint disease History of pneumonia Hypothyroidism History of retinal hole History of hiatal hernia Chronic hypoxic respiratory failure, on home oxygen Recent pulmonary infection with Pseudomonas History of multidrug-resistant organisms History of cholecystectomy Hysterectomy History of anxiety, panic disorder Obesity with a body mass index of 38.6 Recommendations and discussion: Recommend to continue current medications, management, and symptomatic treatment. Pulmonary following closely. Patient is maintained on bronchodilators and IV steroids and will continue at this time. Blood sugars continue to be elevated and will continue to monitor closely and titrate insulins as needed. Patient to increase activity as tolerated. Sputum cultures finalized showing Pseudomonas aeruginosa. Infectious disease following. She will continue on IV antibiotics. Anticipate possible discharge in 24 hours
[2019-09-17 16:56] LABS: Glucose,Whole Blood 320 mg/dL (75-99)
[2019-09-17] MEDS ORDERED: WARFARIN 3 MG TAB PO ONE (18:00)
[2019-09-17] MEDS ORDERED: WARFARIN 5 MG TAB PO SCH (18:00)
[2019-09-17] MEDS: MONTELUKAST 10 MG TAB PO SCH (20:09)
[2019-09-17] MEDS: predniSONE 20 MG TAB PO SCH (20:09)
[2019-09-17 20:40] LABS: Glucose,Whole Blood 374 mg/dL (75-99)
--- NOTE | 2019-09-17 22:01 | PN ---
PROGRESS NOTE DATE OF SERVICE: 09/17/2019 REASON FOR FOLLOWUP: Pseudomonas tracheobronchitis and a question of pneumonia. INTERVAL HISTORY: The patient is currently afebrile. She is still complaining of shortness of breath. Did have a cough, but not bringing up any sputum. No chest pain. No nausea, no vomiting. No abdominal pain. No diarrhea. PHYSICAL EXAMINATION: Blood pressure 154/77, pulse 81, temperature 98.4. She is 98% on 2 L nasal cannula. General description is an elderly female up in the chair in no distress. RESPIRATORY SYSTEM: Unlabored breathing with decreased intensity of breath sounds with occasional wheeze. HEART: S1, S2. Regular rate and rhythm. ABDOMEN: Soft. No tenderness. LABS: Hemoglobin is 10.4, white 8.2, BUN of 57, creatinine 1.17. DIAGNOSTIC IMPRESSION AND PLAN: Patient with Pseudomonas tracheobronchitis and a question of pneumonia. Antibiotic will be adjusted to Fortaz 2 grams q.8 hours; to continue along with steroids and bronchodilator. Monitor clinical course closely. GML / JOSEN: [id number] /
[2019-09-18] MEDS: LEVOTHYROXINE 50 MCG TAB PO SCH (04:50)
[2019-09-18 04:55] VITALS: TEMP 97.8
[2019-09-18 07:08] LABS: Glucose,Whole Blood 365 mg/dL (75-99)
[2019-09-18] MEDS: SYMBICORT 160-4.5 MCG INHALER INHALATION SCH (07:59)
[2019-09-18] MEDS: IPRATROPIUM-ALBUTEROL 3 ML NEB INHALATION SCH ×4 (07:59→15:37)
[2019-09-18 08:18] LABS: INR 2.4 (<1.2); Prothrombin Time 23.3 sec (9.0-12.0)
[2019-09-18] MEDS: CITALOPRAM HYDROBROMIDE 20 MG TAB PO SCH (08:53)
[2019-09-18] MEDS: INSULIN DETEMIR (LEVEMIR) 100 UNIT/ML SYR SQ SCH (08:53)
[2019-09-18] MEDS: CEFTAZIDIME 2 GM IVPB SCH (08:53)
[2019-09-18] MEDS: INSULIN ASPART (NovoLOG) 100 UNIT/ML VIAL SQ SCH ×2 (08:53→12:51)
[2019-09-18] MEDS: POTASSIUM CHLORIDE ER 20 MEQ TAB.ER PO SCH (08:53)
[2019-09-18] MEDS: SODIUM CHLORIDE 0.9% IVPB SCH (08:53)
[2019-09-18] MEDS: DILTIAZEM CD 180 MG CAP.ER.24H PO SCH (08:53)
[2019-09-18] MEDS: ATORVASTATIN 10 MG TAB PO SCH (08:53)
[2019-09-18] MEDS: predniSONE 20 MG TAB PO SCH (08:54)
[2019-09-18] MEDS: LOSARTAN 50 MG TAB PO SCH (08:54)
[2019-09-18] MEDS: ALPRAZolam 0.5 MG TAB PO SCH ×2 (08:54→15:24)
[2019-09-18] MEDS: FERROUS SULFATE 325 MG TAB PO SCH (08:54)
[2019-09-18] MEDS: PANTOPRAZOLE 40 MG TABLET PO SCH (08:54)
[2019-09-18] MEDS: LORATADINE 10 MG TAB PO SCH (08:54)
[2019-09-18] MEDS: FUROSEMIDE 40 MG TAB PO SCH ×2 (08:54→15:24)
--- NOTE | 2019-09-18 10:19 | P.PN ---
Subjective Progress Note Date: 09/18/19 Principal diagnosis: Dyspnea, cough, wheezing and congestion 74-year-old patient with known history of advanced COPD/chronic bronchial asthma, moderately persistent on home oxygen at 2 L, previous history of pseudomonal pulmonary infections, history of atrial fibrillation on Coumadin, CHF unspecified, diabetes mellitus, GERD/reflux, hypertension, hypothyroidism, presented to the hospital on 09/11/2019 with complaints of 2 day history of worsening shortness of breath, cough, congestion, wheezing. Denied any chest pain or palpitations, denies any increased edema in her lower extremities, patient does have some chronic venous stasis changes and some chronic swelling in her lower extremities. Denied any fever or chills. No nausea vomiting or diarrhea. Chest x-ray reveals diffuse interstitial opacity, mild pulmonary congestion, and mild patchy opacity at the lung bases, probably related to atelectasis. Patient sounds very congested and, coarse, and wheezy. She was started on a combination of cefepime and vancomycin for antibiotic coverage. She has not able to bring up any sputum. Her admission lab work showed white blood cell count 7.2, hemoglobin is 10.4, d-dimer was negative at 0.48, electrolytes were within normal limits, B1 is 27, creatinine is 1.14, troponin is negative at less than 0.012, LFTs are within normal limits. Patient was started on IV diuretics, IV steroids, namely bronchodilators and antibiotics. On 09/13/2019 patient seen in follow-up on general medical oncology floor, she still required bronchospastic and congested, not bringing up much sputum, she remains on 2 L of oxygen with a pulse ox 97%, she does become dyspneic with exe rtion, but does not appear to be in any acute distress, she continues on cefepime for empiric antibiotic coverage, she also developed significant steroid-induced hyperglycemia with blood sugar in the 300s. She is currently on IV Solu-Medrol 60 mg every 6 hours, and nebulized bronchodilators, which can taper the dose of steroids down, and switch her to oral Decadron. Sputum culture was sent, showing moderate epithelial cells, moderate gram-negative bacilli and rare gram-positive cocci. Blood culture has shown no growth. On 09/17/2019 patient seen in follow-up on general medical oncology floor, she states she is about 50% better, not as wheezy, breathing easier, she is on 2 L of oxygen a pulse ox of 100%, she is afebrile, hemodynamically she stable. Her sputum culture showed pseudomonas aeruginosa, and patient was initially treated with cefepime, and is currently the patient is on Fortaz, and ID service is following, patient continues on nebulized bronchodilators, and IV Decadron 4 mg every 12 hours. Today's labs have been reviewed. Renal Profile is improving. Her last chest x-ray shows cardiomegaly, vascular congestion, and patient remains on 40 of Lasix twice daily. No significant lower extremity edema, her weight is coming down and is down to 104.1 kg, down 3.4 kg in the last 24 hours. On 09/18/2019 patient seen in follow-up on the general medical oncology floor. She continues to improve, she is breathing easier, less bronchospastic, there is some scattered rhonchi heard on today's exam, occasional cough no sputum production. She remains on her 2 L of oxygen and her pulse ox is 95-97%, she is afebrile, she is tolerating ambulation, patient is on Fortaz for the pseudomonal tracheal bronchitis. Patient like to go home today, he states there has been a in the family, her brother had . She is clinically improving, and she may be considered for discharge home today Objective - Vital Signs Vital signs: Vital Signs Temp 97.8 F 09/18/19 04:52 Pulse 88 09/18/19 08:13 Resp 20 09/18/19 04:52 BP 167/72 09/18/19 04:52 Pulse Ox 97 09/18/19 08:01 Intake & Output 09/17/19 09/18/19 09/18/19 18:59 06:59 18:59 Intake Total 790 Balance 790 Weight 104.1 kg 103.5 kg Intake: Intake, IV Titration 50 Amount Ceftazidime Syst. 2 gm In 50 Sodium Chloride 0.9% 50 ml @ 100 mls/hr IVPB Q8HR [facility] Rx#:[id number] Oral 740 Other: Voiding Method Toilet # Voids 1 2 - Exam GENERAL EXAM: Alert, very pleasant, 74-year-old white female, on 2 L of oxygen with a pulse ox of 97%, comfortable in no apparent distress. HEAD: Normocephalic/atraumatic. EYES: Normal reaction of pupils, equal size. Conjunctiva pink, sclera white. NOSE: Clear with pink turbinates. THROAT: No erythema or exudates. NECK: No masses, no JVD, no thyroid enlargement, no adenopathy. CHEST: No chest wall deformity. Symmetrical expansion. LUNGS: Equal air entry with some scattered rhonchi, no significant wheezing on today's exam CVS: Regular rate and rhythm, normal S1 and S2, no gallops, no murmurs, no rubs ABDOMEN: Soft, nontender. No hepatosplenomegaly, normal bowel sounds, no guarding or rigidity. EXTREMITIES: No clubbing, chronic venous stasis changes involving lower extremities, and mild pretibial edema, no cyanosis, 2+ pulses and upper and lower extremities. MUSCULOSKELETAL: Muscle strength and tone normal. SPINE: No scoliosis or deformity SKIN: No rashes CENTRAL NERVOUS SYSTEM: Alert and oriented -3. No focal deficits, tone is normal in all 4 extremities. PSYCHIATRIC: Alert and oriented -3. Appropriate affect. Intact judgment and insight. - Labs CBC & Chem 7: 09/17/19 08:06 09/17/19 08:06 Labs: Abnormal Lab Results - Last 24 Hours (Table) 09/17/19 09/17/19 09/17/19 Range/Units 11:17 16:54 20:27 PT (9.0-12.0) sec INR (<1.2) POC Glucose (mg/dL) 274 H 320 H 374 H (75-99) mg/dL 09/18/19 09/18/19 Range/Units 07:04 07:22 PT 23.3 H (9.0-12.0) sec INR 2.4 H (<1.2) POC Glucose (mg/dL) 365 H (75-99) mg/dL Microbiology - Last 24 Hours (Table) 09/11/19 17:15 Blood Culture - Final Blood No Growth after 144 hours 09/12/19 09:23 Gram Stain - Final Sputum Sputum Culture - Final Pseudomonas aeruginosa Assessment and Plan Plan: Assessment: #1. Acute exacerbation of COPD/chronic bronchial asthma, moderately persistent, with tracheobronchitis, possibly related to Pseudomonas. Chest x-ray shows diffuse interstitial opacity, mild pulmonary vascular congestion, and mild patchy opacity at the lung bases, probably related to atelectasis. Patient has previous history of recurrent pseudomonal infections. #2. Chronic hypoxic respiratory failure related to advanced COPD #3. 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 Diabetes mellitus type 2 #5. Paroxysmal atrial fibrillation on Coumadin, current rhythm is sinus, p atient is on Coumadin 5 mg daily, admission INR subtherapeutic at 1.0 #6. Chronic kidney disease, stage II #7. Hypertension #8. Osteoarthritis #9. Hypothyroidism #10. Coarse interstitial changes present on the chest x-ray rule out underlying fibrosis/scarring #11. Steroid-induced hyperglycemia Plan: Patient is breathing easier, less bronchospastic, less dyspneic, she continues on Fortaz for pseudomonal tracheal bronchitis, vital signs are stable, patient is afebrile, no acute events overnight, she is tolerating ambulation, she is requesting to go home today. There has been a in the family, and patient would like to go home if possible. We discussed the possibility of outpatient bronchial and patient was instructed to call the office in the next few days if her symptoms continue to worsen and to have the outpatient bronchial scheduled with Dr. Tiwari of this week on or Tuesday. Antibiotics per ID service recommendations, she can resume her regular inhalers and breathing treatments, and complete prednisone taper I performed a history & physical examination of the patient and discussed their management with my nurse practitioner, Maryjo Parisi. I reviewed the nurse practitioner's note and agree with the documented findings and plan of care. Lung sounds are positive for diffuse wheezes throughout the lung carrera. The findings and the impression was discussed with the patient. I attest to the documentation by the nurse practitioner. Time with Patient: Less than 30
[2019-09-18 11:36] LABS: Glucose,Whole Blood 348 mg/dL (75-99)
[2019-09-18 12:07] VITALS: BP 168/80; RESP 19
--- NOTE | 2019-09-18 13:03 | PN ---
PROGRESS NOTE DATE OF SERVICE: 09/18/2019 REASON FOR FOLLOWUP: Pseudomonas tracheobronchitis. INTERVAL HISTORY: Patient is currently afebrile. The patient is breathing slightly comfortably. Still having some cough, not bringing up any sputum. No chest pain. No abdominal pain, no diarrhea. PHYSICAL EXAMINATION: Blood pressure 150/80 with a pulse of 81, temperature is 97.8, she is 98% on 2 L nasal cannula. General description is an elderly female, up in the bed in no distress. RESPIRATORY SYSTEM: Unlabored breathing. Occasional wheeze. HEART: S1, S2. Regular rate and rhythm. ABDOMEN: Soft, no tenderness. LABS: is 2.54. DIAGNOSTIC IMPRESSION AND PLAN: Patient with Pseudomonas tracheobronchitis. Clinically doubt pneumonia. She has received adequate IV antibiotic therapy. Currently did not have any oral option. Recommend no antibiotic on discharge. Continue bronchodilator and steroids per Pulmonary. Discussed with the nurse practitioner for admitting team working on discharge. MMODL / IJN: [id number] /
[2019-09-18 15:47] VITALS: PULSE 82
[2019-09-18] MEDS ORDERED: CEFTAZIDIME 2 GM IVPB SCH (16:00)
[2019-09-18] MEDS ORDERED: [UNRECOGNIZED DRUG - OTHER] IVPB SCH (16:00)
--- NOTE | 2019-09-19 09:51 | CDI ---
Documentation Clarification Form Date: 09/19/19 From: Flakita Dawn Phone: If you have a question about this query, please contact Sofi Augustin, [employer] at [phone] between 8am and 5pm. Admit Date: 09/11/19 Discharge Date:09/18/19 Patient Name: Xi Lloyd Visit Number: [id number] ATTENTION: The Clinical Documentation Specialists (CDI) and [facility] Coding Staff appreciate your assistance in clarifying documentation. Please respond to the clarification below the line at the bottom and electronically sign. The CDI & [facility] Coding staff will review the response and follow-up if needed. Please note: Queries are made part of the Legal Health Record. If you have any questions, please contact the author of this message via ITS. Dear Dr. Gamboa Conflicting documentation has been found in the medical record: Documentation in your progress notes and H&P. Dr. Chow documented tracheobronchitis possibly related to Pseudomonas in his consult note and progress notes. Dr. Apple documented tracheobronthitis in his consult note and progress notes. Dr. Apple also documented clinically doubt pneumonia in the 09/17 progress note. History/Risk Factors: Recent history of pseudomonas aeruginosa pulmonary infection, COPD, asthma Clinical Indicators: Shortness of breath, cough, chest pain Vital signs: T. 98.5, P. 94, R. 22, BP 181/64 WBC/Left shift: 7.2/62% X-ray: Borderline cardiomegaly. 2. Diffuse interstitial opacity. Correlate for bronchitis, atypical pneumonias, or mild pulmonary vascular congestion. 3. Mild patchy opacity at the lung bases, probably atelectasis. Lung/Breathing assessment: Breath sounds diminished at the bases. Bilateral scattered rhonci and crackles. breathing efforts are markedly increased. Treatment: Antibiotics: IV Cefepime, IV Fortaz Breathing treatment: Ventolin nebulized, Duoneb O2: 2 lpm by nasal cannula In your opinion, what is the most clinically appropriate diagnosis for this patient? Pneumonia (specify organism) Tracheobronchitis Acute Chronic Other explanation of clinical findings Unable to determine (no explanation for clinical findings) Tracheobronchitis Acute MTDD
--- NOTE | 2019-09-19 10:39 | P.DS ---
Providers Date of admission: 09/11/19 15:46 Expected date of discharge: 09/18/19 Attending physician: Nixon Gamboa Consults: 09/11/19 16:37 Consult Physician Routine Consulting Provider: Isabella Chow Consult Reason/Comments: copd Do you want consulting provider notified?: Yes Consult Physician Routine Consulting Provider: Claire Apple Consult Reason/Comments: pseudomonas Do you want consulting provider notified?: Yes Primary care physician: Verona Medrano Hospital Course: Final diagnosis Chronic obstructive pulmonary disease and bronchial asthma, acute exacerbation, with basilar pneumonia, possible tracheobronchitis, possibly gram-negative Paroxysmal atrial fibrillation Chest pain, possibly musculoskeletal History of congestive heart failure; ejection fraction unknown Diabetes mellitus type 2 Gastroesophageal reflux disease Hearing deficit Hypertension History of degenerative joint disease History of pneumonia Hypothyroidism History of retinal hole History of hiatal hernia Chronic hypoxic respiratory failure, on home oxygen Recent pulmonary infection with Pseudomonas History of multidrug-resistant organisms History of cholecystectomy Hysterectomy History of anxiety, panic disorder Obesity with a body mass index of 38.6 Discharge disposition Patient is being discharged in a stable condition with guarded prognosis to home. Patient will also continue on a prednisone taper. Patient will follow-up with Dr. Medrano upon discharge. Patient also instructed to follow-up with pulmonary Dr. Butler in the outpatient setting to discuss bronchoscopy in the future. Total time taken is 35 minutes. History of present illness This is an 74-year-old female who was recently admitted with COPD acute exacerbation, chest pain, increased shortness of breath and was being closely monitored. Patient was seen and evaluated by pulmonary and was continued on bronchodilators along with IV steroids and IV Lasix. Sputum cultures are finalized showing Pseudomonas aeruginosa and was treated adequately with IV antibiotics. Patient will not require IV antibiotics upon discharge. Infectious disease was following. Patient will be following up with pulmonary in the outpatient setting for bronchoscopy. Patient was also diuresed with IV Lasix and will continue on oral Lasix. Patient also instructed to follow-up with primary care provider for repeat labs to monitor kidney functions. Currently no reports of chest pain, worsening shortness of breath, or palpitations. Patient is afebrile. No reports of nausea or vomiting and patient is tolerating diet. Guarded prognosis. Please refer to previous dictations for further HPI On exam vital signs are stable. Temp is 97.8F, pulse is 81, respirations are 19, blood pressure is 168/80, oxygen saturation is 98% on 2 L via nasal cannula. Patient is O2 dependent on 2 L in the outpatient setting. Cardio S1, S2 are muffled. Respiratory shows diminished breath sounds at the bases with some scattered rhonchi noted. Abdomen is soft and nontender. Nervous system shows no focal deficits. Please refer to medication reconciliation sheet for a list of medications. Patient Condition at Discharge: Stable Plan - Discharge Summary Discharge Rx Participant: No New Discharge Prescriptions: New Furosemide [Lasix] 40 mg PO BID@0900,1600 #60 tab Pantoprazole [Protonix] 40 mg PO AC-BRKFST #30 tablet. Budesonide-Formot 160-4.5 Mcg [Symbicort 160-4.5 Mcg Inhaler] 2 puff INHALATION RT-BID #1 puff predniSONE 10 mg PO DIRECTED #100 tab Continue Diltiazem HCl [Diltiazem HCl 24Hr ER] 180 mg PO DAILY Alendronate Sodium [Fosamax] 70 mg PO FR Lovastatin [Mevacor] 40 mg PO DAILY Citalopram Hydrobromide [Citalopram HBr] 40 mg PO DAILY ALPRAZolam [Xanax] 0.5 mg PO TID Ipratropium Nebulized [Atrovent Nebulized 0.2 MG/ML] 0.5 mg INHALATION RT-QID Levothyroxine Sodium [Synthroid] 50 mcg PO DAILY Losartan [Cozaar] 50 mg PO DAILY Potassium Chloride [Klor-Con 20] 20 meq PO BID traMADol HCL 50 mg PO TID PRN PRN Reason: Pain Zafirlukast [Accolate] 20 mg PO BID Albuterol Nebulized [Ventolin Nebulized] 2.5 mg INHALATION RT-Q6H Insulin Glargine [Lantus] 30 unit SQ DAILY Warfarin Sodium [Coumadin] 5 mg PO HS Loratadine [Claritin] 10 mg PO DAILY Albuterol Sulfate [Ventolin HFA] 1 - 2 puff INHALATION RT-Q6H PRN PRN Reason: Shortness Of Breath guaiFENesin [Mucinex] 600 mg PO Q12HR PRN #14 tablet.er PRN Reason: Cough Ferrous Sulfate [Iron (65 MG Elemental)] 325 mg PO DAILY #30 tab Insulin Regular, Human [NovoLIN R] See Protocol SQ ACHS MDD 30 UNITS Discontinued Furosemide [Lasix] 40 mg PO DAILY Discharge Medication List ALPRAZolam [Xanax] 0.5 mg PO TID 01/16/19 [History] Alendronate Sodium [Fosamax] 70 mg PO FR 01/16/19 [History] Citalopram Hydrobromide [Citalopram HBr] 40 mg PO DAILY 01/16/19 [History] Diltiazem HCl [Diltiazem HCl 24Hr ER] 180 mg PO DAILY 01/16/19 [History] Ipratropium Nebulized [Atrovent Nebulized 0.2 MG/ML] 0.5 mg INHALATION RT-QID 01/16/19 [History] Levothyroxine Sodium [Synthroid] 50 mcg PO DAILY 01/16/19 [History] Losartan [Cozaar] 50 mg PO DAILY 01/16/19 [History] Lovastatin [Mevacor] 40 mg PO DAILY 01/16/19 [History] Potassium Chloride [Klor-Con 20] 20 meq PO BID 01/16/19 [History] Zafirlukast [Accolate] 20 mg PO BID 01/16/19 [History] traMADol HCL 50 mg PO TID PRN 01/16/19 [History] Albuterol Nebulized [Ventolin Nebulized] 2.5 mg INHALATION RT-Q6H 04/26/19 [History] Insulin Glargine [Lantus] 30 unit SQ DAILY 06/28/19 [History] Warfarin Sodium [Coumadin] 5 mg PO HS 06/28/19 [History] Albuterol Sulfate [Ventolin HFA] 1 - 2 puff INHALATION RT-Q6H PRN 08/07/19 [History] Loratadine [Claritin] 10 mg PO DAILY 08/07/19 [History] Ferrous Sulfate [Iron (65 MG Elemental)] 325 mg PO DAILY #30 tab 08/10/19 [Rx] guaiFENesin [Mucinex] 600 mg PO Q12HR PRN #14 tablet.er 08/10/19 [Rx] Insulin Regular, Human [NovoLIN R] See Protocol SQ ACHS MDD 30 UNITS 09/11/19 [History] Budesonide-Formot 160-4.5 Mcg [Symbicort 160-4.5 Mcg Inhaler] 2 puff INHALATION RT-BID #1 puff 07/25/20 [Rx] Furosemide [Lasix] 40 mg PO BID@0900,1600 #60 tab 09/15/19 [Rx] Pantoprazole [Protonix] 40 mg PO AC-BRKFST #30 tablet. 09/15/19 [Rx] predniSONE 10 mg PO DIRECTED #100 tab 09/18/19 [Rx] Follow up Appointment(s)/Referral(s): Alvaro Butler DO [Doctor of Osteopathic Medicine] - 10/02/19 9:15 am Verona Medrano MD [Primary Care Provider] - 09/24/19 11:40 am Ambulatory/Diagnostic Orders: Basic Metabolic Panel [LAB.AMB] Time Frame: 2 Days, Location: None Selected Complete Blood Count w/diff [LAB.AMB] Location: None Selected Patient Instructions/Handouts: Furosemide (By mouth), Prednisone (By mouth), Pantoprazole (By mouth), Heart Failure (DC), Type 2 Diabetes in Adults: New Diagnosis (DC), COPD (Chronic Obstructive Pulmonary Disease) (DC) Activity/Diet/Wound Care/Special Instructions: Activity Limited until follow-up Follow-up with primary care provider upon discharge Continue with prednisone until finished Follow-up with pulmonary in the outpatient setting Continue monitoring blood sugar before meals at bedtime and keep a diary for primary care follow-up Discharge Disposition: HOME SELF-CARE
== END 2019-09-18 17:17 | disposition home or self-care (01) | DRG 191 ==
LOC: EC 12:34 → 1SOBS 15:10 → OBSVTOIN 15:46 → 5NMEDONC 15:53
PROVIDERS: ADMIT Hospitalist; ATTEND Hospitalist
DX: J44.1 Chronic obstructive pulmonary disease with (acute) exacerbation (principal); I13.0 Hypertensive heart and chronic kidney disease with heart failure and stage 1 through stage 4 chronic kidney disease, or unspecified chronic kidney disease; J45.41 Moderate persistent asthma with (acute) exacerbation; J96.11 Chronic respiratory failure with hypoxia; J98.11 Atelectasis; J44.0 Chronic obstructive pulmonary disease with (acute) lower respiratory infection; E11.22 Type 2 diabetes mellitus with diabetic chronic kidney disease; E66.9 Obesity, unspecified; I50.9 Heart failure, unspecified; E11.65 Type 2 diabetes mellitus with hyperglycemia; I48.0 Paroxysmal atrial fibrillation; E03.9 Hypothyroidism, unspecified; E78.5 Hyperlipidemia, unspecified; F41.0 Panic disorder [episodic paroxysmal anxiety]; H91.90 Unspecified hearing loss, unspecified ear; J20.9 Acute bronchitis, unspecified; K21.9 Gastro-esophageal reflux disease without esophagitis; M19.90 Unspecified osteoarthritis, unspecified site; Z20.828 Contact with and (suspected) exposure to other viral communicable diseases; N18.2 Chronic kidney disease, stage 2 (mild); T38.0X5A Adverse effect of glucocorticoids and synthetic analogues, initial encounter; K44.9 Diaphragmatic hernia without obstruction or gangrene; H54.7 Unspecified visual loss; I87.8 Other specified disorders of veins; Z79.890 Hormone replacement therapy; Z99.81 Dependence on supplemental oxygen; Z68.38 Body mass index [BMI] 38.0-38.9, adult; Z79.01 Long term (current) use of anticoagulants; Z79.4 Long term (current) use of insulin; Z79.83 Long term (current) use of bisphosphonates; Z79.899 Other long term (current) drug therapy; Z88.0 Allergy status to penicillin; Z88.2 Allergy status to sulfonamides; Z87.01 Personal history of pneumonia (recurrent); Z91.041 Radiographic dye allergy status; Z91.040 Latex allergy status; Z90.49 Acquired absence of other specified parts of digestive tract; Z90.710 Acquired absence of both cervix and uterus
CPT/HCPCS: 36415; 71045; 71046; 80048; 80053; 83605; 83735; 83880; 84145; 84484; 85025; 85379; 85610; 85730; 86140; 87040; 87070; 87077; 87186; 87205; 93005; 94640; 94644; 94760; 96374; 99291

== ENCOUNTER 2019-10-23 23:40 | Inpatient (IN) | payer MEDICARE ==
[2019-10-24] MEDS ORDERED: FUROSEMIDE 10 MG/ML 4 ML VIAL IV STA (00:09)
[2019-10-24] MEDS ORDERED: methylPREDNISolone SOD SUCCI 125 MG/2 ML VIAL IV STA (00:09)
[2019-10-24] MEDS ORDERED: IPRATROPIUM-ALBUTEROL 3 ML NEB INHALATION STA (00:09)
[2019-10-24 00:38] LABS: Anisocytosis Slight; Basophils % (A) 1 %; Eosinophils # (A) 0.1 k/uL (0-0.7); Eosinophils % (A) 1 %; HCT 30.8 % (34.0-46.0); HGB 9.8 gm/dL (11.4-16.0); Hypochromasia Slight; Lymphocytes # (A) 1.9 k/uL (1.0-4.8); Lymphocytes % (A) 25 %; MCH 26.6 pg (25.0-35.0); MCHC 31.9 g/dL (31.0-37.0); MCV 83.4 fL (80.0-100.0); Monocytes # (A) 0.5 k/uL (0-1.0); Monocytes % (A) 7 %; Neutrophils # (A) 4.7 k/uL (1.3-7.7); Neutrophils % (A) 64 %; Platelet Count 163 k/uL (150-450); RDW 16.2 % (11.5-15.5); WBC 7.4 k/uL (3.8-10.6)
--- NOTE | 2019-10-24 00:48 | XR ---
EXAMINATION TYPE: XR chest 2V DATE OF EXAM: 10/24/2019 COMPARISON: 09/16/2019 HISTORY: Difficulty breathing TECHNIQUE: FINDINGS: Heart is enlarged. There is coarse infiltrates in both lungs. There is no definite pleural effusion. Thoracic aorta is atheromatous. The bony thorax is intact. IMPRESSION: Increasing pulmonary interstitial infiltrates compared to recent exam. This could relate to acute interstitial pneumonia superimposed on some pulmonary fibrosis.
[2019-10-24 00:49] LABS: Albumin 3.1 g/dL (3.5-5.0); Calcium 7.9 mg/dL (8.4-10.2); Potassium 4.8 mmol/L (3.5-5.1); Total Bilirubin 0.4 mg/dL (0.2-1.3); Total Protein 6.1 g/dL (6.3-8.2)
[2019-10-24 00:58] LABS: Prothrombin Time 29.4 sec (9.0-12.0)
[2019-10-24] MEDS ORDERED: cefTRIAXone IN SWFI 1,000 MG/10 ML SYRINGE IVP STA (00:59)
[2019-10-24] MEDS ORDERED: AZITHROMYCIN 500 MG in SODIUM CHLORIDE 0.9% 250 ML IVPB STA (01:00)
--- NOTE | 2019-10-24 01:02 | ED ---
SOB HPI - General Chief Complaint: Shortness of Breath Stated Complaint: DEREK Time Seen by Provider: 10/23/19 23:56 Source: patient Mode of arrival: ambulatory Limitations: no limitations - History of Present Illness Initial Comments: Xi is a 74-year-old female history of congestive heart failure and COPD secondary to secondhand smoke she was never a smoker herself. Patient presents the ER today for evaluation of progressively worsening shortness of breath throughout the weekend. Patient reports that she feels short of breath, she has a cough as minimally productive. She's been using her breathing treatments with no improvement. Patient reports she's also had some burning in her mouth and felt like she had sores in her mouth there are none visible on exam. Patient denies any fevers, chills, nausea or vomiting. She reports fatigue and d ecreased appetite. - Related Data Home Medications Medication Instructions Recorded Confirmed ALPRAZolam [Xanax] 0.5 mg PO TID 01/16/19 09/11/19 Alendronate Sodium [Fosamax] 70 mg PO FR 01/16/19 09/11/19 Citalopram Hydrobromide 40 mg PO DAILY 01/16/19 09/11/19 [Citalopram HBr] Diltiazem HCl [Diltiazem HCl 24Hr 180 mg PO DAILY 01/16/19 09/11/19 ER] Ipratropium Nebulized [Atrovent 0.5 mg INHALATION RT-QID 01/16/19 09/11/19 Nebulized 0.2 MG/ML] Levothyroxine Sodium [Synthroid] 50 mcg PO DAILY 01/16/19 09/11/19 Losartan [Cozaar] 50 mg PO DAILY 01/16/19 09/11/19 Lovastatin [Mevacor] 40 mg PO DAILY 01/16/19 09/11/19 Potassium Chloride [Klor-Con 20] 20 meq PO BID 01/16/19 09/11/19 Zafirlukast [Accolate] 20 mg PO BID 01/16/19 09/11/19 traMADol HCL 50 mg PO TID PRN 01/16/19 09/11/19 Albuterol Nebulized [Ventolin 2.5 mg INHALATION RT-Q6H 04/26/19 09/11/19 Nebulized] Insulin Glargine [Lantus] 30 unit SQ DAILY 06/28/19 09/11/19 Warfarin Sodium [Coumadin] 5 mg PO HS 06/28/19 09/11/19 Albuterol Sulfate [Ventolin HFA] 1 - 2 puff INHALATION RT-Q6H PRN 08/07/19 09/11/19 Loratadine [Claritin] 10 mg PO DAILY 08/07/19 09/11/19 Insulin Regular, Human [NovoLIN R] See Protocol SQ ACHS MDD 30 UNITS 09/11/19 09/11/19 Previous Rx's Medication Instructions Recorded Ferrous Sulfate [Iron (65 MG 325 mg PO DAILY #30 tab 08/10/19 Elemental)] guaiFENesin [Mucinex] 600 mg PO Q12HR PRN #14 tablet.er 08/10/19 Budesonide-Formot 160-4.5 Mcg 2 puff INHALATION RT-BID #1 puff 09/15/19 [Symbicort 160-4.5 Mcg Inhaler] Furosemide [Lasix] 40 mg PO BID@0900,1600 #60 tab 09/15/19 Pantoprazole [Protonix] 40 mg PO AC-BRKFST #30 tablet. 09/15/19 predniSONE 10 mg PO DIRECTED #100 tab 09/18/19 Allergies Allergy/AdvReac Type Severity Reaction Status Date / Time Iodinated Contrast Media Allergy Unknown, Verified 10/23/19 23:47 POOR RENAL FUNCTIONS Sulfa (Sulfonamide Allergy Unknown Verified 10/23/19 23:47 Antibiotics) latex AdvReac Rash/Hives Verified 10/23/19 23:47 Penicillins AdvReac Rash/Hives Verified 10/23/19 23:47 Review of Systems ROS Statement: Those systems with pertinent positive or pertinent negative responses have been documented in the HPI. ROS Other: All systems not noted in ROS Statement are negative. Past Medical History Past Medical History: Atrial Fibrillation, Asthma, Heart Failure, COPD, Diabetes Mellitus, GERD/Reflux, Hearing Disorder / Deafness, Hypertension, Osteoarthritis (OA), Pneumonia, Renal Disease, Thyroid Disorder Additional Past Medical History / Comment(s): HOLE IN RIGHT RETINA. hiatal hernia, anemia, chronic hypoxic respiratory failure, recent pulmonary infection with pseudomonas aeruginosa confirmed via bronchoscopy and the lavage History of Any Multi-Drug Resistant Organisms: Other MDRO Past Surgical History: Cholecystectomy, Hysterectomy Additional Past Surgical History / Comment(s): CATARACT REMOVAL LEFT EYE. Past Anesthesia/Blood Transfusion Reactions: No Reported Reaction Past Psychological History: Anxiety, Panic Disorder Smoking Status: Never smoker Past Alcohol Use History: None Reported Past Drug Use History: None Reported - Past Family History Mother Family Medical History: No Reported History General Exam - General Exam Comments Initial Comments: Physical Exam GENERAL: Patient is well-developed and well-nourished. Patient is nontoxic and well-hydrated and is in no distress. HENT: Normocephalic, Atraumatic. No oral lesions noted EYES: PERRL, EOMI PULMONARY: Tachypnea Coarse breath sounds bilaterally Mild wheeze in all lung carrera CARDIOVASCULAR: There is a regular rate and rhythm without any murmurs gallops or rubs. ABDOMEN: Soft and nontender with normal bowel sounds. SKIN: Skin is clear with no lesions or rashes and otherwise unremarkable. : Deferred NEUROLOGIC: Patient is alert and oriented x3. Moving all extremities spontaneously MUSCULOSKELETAL: Normal extremities with adequate strength and full range of motion. No lower extremity swelling or edema. PSYCHIATRIC: Normal psychiatric evaluation. Limitations: no limitations Course Vital Signs 10/23/19 10/24/19 10/24/19 23:45 00:37 00:48 Temperature 99.3 F Pulse Rate 102 H 96 93 Respiratory 34 H 30 H Rate Blood Pressure 156/70 160/87 O2 Sat by Pulse 92 L 99 Oximetry 10/24/19 01:08 Temperature Pulse Rate 90 Respiratory Rate Blood Pressure O2 Sat by Pulse Oximetry Medical Decision Making - Medical Decision Making The patient was seen and evaluated, history is obtained from patient History and physical exam are concerning for COPD versus CHF patient doesn't appear overtly fluid overloaded Breathing treatments and steroids will be ordered Labs resulted with multiple chronic abnormalities no leukocytosis, chronic anemia was noted, troponin I elevated BNP not significantly elevated Chest x-ray is concerning for bilateral patchy infiltrates likely an acute pneumonia in the setting of chronic pulmonary fibrosis Patient has not been hospitalized about 30 days, will be treated for community- acquired pneumonia and tested for COVID 19 Blood Cultures were obtained Patient does not have any tachycardia, fever or leukocytosis. At this point does not meet sepsis criteria. Patient does not appear volume depleted given her history of congestive heart failure I do not feel she would benefit from large fluid bolus. Patient will be treated with Rocephin and azithromycin for community-acquired pneumonia and admitted the hospital - Lab Data Result diagrams: 10/24/19 00:21 10/24/19 00:21 Lab Results 10/24/19 10/24/19 10/24/19 Range/Units 00:21 00:21 00:21 WBC 7.4 (3.8-10.6) k/uL RBC 3.70 L (3.80-5.40) m/uL Hgb 9.8 L (11.4-16.0) gm/dL Hct 30.8 L (34.0-46.0) % MCV 83.4 (80.0-100.0) fL MCH 26.6 (25.0-35.0) pg MCHC 31.9 (31.0-37.0) g/dL RDW 16.2 H (11.5-15.5) % Plt Count 163 (150-450) k/uL Neutrophils % 64 % Lymphocytes % 25 % Monocytes % 7 % Eosinophils % 1 % Basophils % 1 % Neutrophils # 4.7 (1.3-7.7) k/uL Lymphocytes # 1.9 (1.0-4.8) k/uL Monocytes # 0.5 (0-1.0) k/uL Eosinophils # 0.1 (0-0.7) k/uL Basophils # 0.0 (0-0.2) k/uL Hypochromasia Slight Anisocytosis Slight PT 29.4 H (9.0-12.0) sec INR 3.0 H (<1.2) APTT 47.0 H (22.0-30.0) sec Sodium 135 L (137-145) mmol/L Potassium 4.8 (3.5-5.1) mmol/L Chloride 101 (98-107) mmol/L Carbon Dioxide 31 H (22-30) mmol/L Anion Gap 3 mmol/L BUN 28 H (7-17) mg/dL Creatinine 1.09 H (0.52-1.04) mg/dL Est GFR (CKD-EPI)AfAm 59 (>60 ml/min/1.73 sqM) Est GFR (CKD-EPI)NonAf 51 (>60 ml/min/1.73 sqM) Glucose 282 H (74-99) mg/dL Plasma Lactic Acid Yasir (0.7-2.0) mmol/L Calcium 7.9 L (8.4-10.2) mg/dL Magnesium 2.0 (1.6-2.3) mg/dL Total Bilirubin 0.4 (0.2-1.3) mg/dL AST 25 (14-36) U/L ALT 23 (4-34) U/L Alkaline Phosphatase 79 (38-126) U/L Troponin I (0.000-0.034) ng/mL NT-Pro-B Natriuret Pep pg/mL Total Protein 6.1 L (6.3-8.2) g/dL Albumin 3.1 L (3.5-5.0) g/dL 10/24/19 10/24/19 10/24/19 Range/Units 00:21 00:21 00:21 WBC (3.8-10.6) k/uL RBC (3.80-5.40) m/uL Hgb (11.4-16.0) gm/dL Hct (34.0-46.0) % MCV (80.0-100.0) fL MCH (25.0-35.0) pg MCHC (31.0-37.0) g/dL RDW (11.5-15.5) % Plt Count (150-450) k/uL Neutrophils % % Lymphocytes % % Monocytes % % Eosinophils % % Basophils % % Neutrophils # (1.3-7.7) k/uL Lymphocytes # (1.0-4.8) k/uL Monocytes # (0-1.0) k/uL Eosinophils # (0-0.7) k/uL Basophils # (0-0.2) k/uL Hypochromasia Anisocytosis PT (9.0-12.0) sec INR (<1.2) APTT (22.0-30.0) sec Sodium (137-145) mmol/L Potassium (3.5-5.1) mmol/L Chloride (98-107) mmol/L Carbon Dioxide (22-30) mmol/L Anion Gap mmol/L BUN (7-17) mg/dL Creatinine (0.52-1.04) mg/dL Est GFR (CKD-EPI)AfAm (>60 ml/min/1.73 sqM) Est GFR (CKD-EPI)NonAf (>60 ml/min/1.73 sqM) Glucose (74-99) mg/dL Plasma Lactic Acid Yasir 0.9 (0.7-2.0) mmol/L Calcium (8.4-10.2) mg/dL Magnesium (1.6-2.3) mg/dL Total Bilirubin (0.2-1.3) mg/dL AST (14-36) U/L ALT (4-34) U/L Alkaline Phosphatase (38-126) U/L Troponin I 0.012 (0.000-0.034) ng/mL NT-Pro-B Natriuret Pep 427 pg/mL Total Protein (6.3-8.2) g/dL Albumin (3.5-5.0) g/dL Disposition Clinical Impression: Pneumonia, COPD (chronic obstructive pulmonary disease), Chronic anemia Disposition: ADMITTED IP TO THIS HOSP Condition: Serious Is patient prescribed a controlled substance at d/c from ED?: No Referrals: Verona Medrano MD [Primary Care Provider] - 1-2 days
[2019-10-24] MEDS ORDERED: PNEUMONIA PROTOCOL UTILIZED 1 EACH MISC PO PRN (02:37)
[2019-10-24 06:20] LABS: Glucose,Whole Blood 350 mg/dL (75-99)
[2019-10-24] MEDS: IPRATROPIUM-ALBUTEROL 3 ML NEB INHALATION PRN ×4 (07:48→19:26)
[2019-10-24] MEDS ORDERED: ACETAMINOPHEN TAB 325 MG TAB PO PRN (09:06)
[2019-10-24 09:27] LABS: INR 3.2 (<1.2); Prothrombin Time 31.6 sec (9.0-12.0)
[2019-10-24] MEDS: POTASSIUM CHLORIDE ER 20 MEQ TAB.ER PO SCH ×2 (09:55→21:10)
[2019-10-24] MEDS: CITALOPRAM HYDROBROMIDE 20 MG TAB PO SCH (09:55)
[2019-10-24] MEDS: ALPRAZolam 0.5 MG TAB PO SCH ×3 (09:55→21:11)
[2019-10-24] MEDS: PANTOPRAZOLE 40 MG TABLET PO SCH (09:55)
[2019-10-24] MEDS: LOSARTAN 50 MG TAB PO SCH (09:55)
[2019-10-24] MEDS: ATORVASTATIN 10 MG TAB PO SCH (09:56)
[2019-10-24] MEDS: INSULIN DETEMIR (LEVEMIR) 100 UNIT/ML SYR SQ SCH (09:56)
[2019-10-24] MEDS: FUROSEMIDE 40 MG TAB PO SCH (09:56)
[2019-10-24] MEDS: LORATADINE 10 MG TAB PO SCH (09:56)
[2019-10-24] MEDS: LEVOTHYROXINE 50 MCG TAB PO SCH (09:56)
[2019-10-24] MEDS: DILTIAZEM CD 180 MG CAP.ER.24H PO SCH (09:56)
[2019-10-24] MEDS: FERROUS SULFATE 325 MG TAB PO SCH (09:56)
[2019-10-24] MEDS ORDERED: MEROPENEM 1 GM in SODIUM CHLORIDE 0.9% 100 ML IVPB ONE (11:00)
[2019-10-24 12:01] LABS: Glucose,Whole Blood >600 mg/dL (75-99)
[2019-10-24 12:02] LABS: Glucose,Whole Blood >600 mg/dL (75-99)
--- NOTE | 2019-10-24 12:38 | P.CNPUL ---
History of Present Illness Consult date: 10/24/19 Requesting physician: Nixon Gamboa Reason for consult: dyspnea, cough Chief complaint: Cough, wheezing, shortness of breath History of present illness: 74-year-old patient of Dr. Medrano, who is well-known to our practice from previous admissions for complications related to advanced COPD/chronic bronchial asthma, moderately persistent on home oxygen at 2 L, previous history of pseudomonal pulmonary infections, patient follows with Dr. Mendiola in the office. Other medical history includes paroxysmal A. fib on Coumadin, CHF, unspecified, diabetes mellitus type 2, GERD/reflux, hypertension, hypothyroidism. Patient presented to the hospital on 10/23/2019 with complaints of shortness of breath, cough, wheezing, her cough is minimally productive. Denied any fever, denied any chills, no nausea vomiting, no complaints of chest pain, reports fatigue and decreased appetite. No increased swelling in her lower extremities. Chest x-ray shows increasing interstitial pulmonary infiltrates in addition to chronic interstitial changes present on previous chest x-rays, possibility of pulmonary fibrosis. White blood cell count was 7.4, hemoglobin is 9.8, INR was 3.0, sodium is 135, potassium is 4.8, CO2 31, BUN is 28, creatinine is 1.09, LFTs are within normal limits, proBNP was within normal limits at 427. Patient was initially started on azithromycin and Rocephin however patient has multiple BAL and sputum cultures from previous admissions positive for pseudomonas aeruginosa, most recent one showed resistance to Levaquin, imipenem, ciprofloxacin, and intermediate sensitivity to cefepime. On today's exam patient is resting quietly in bed, she is on 3 L of oxygen and a pulse ox of 97%, very bronchospastic and congested, but afebrile, vital signs are stable. No hemoptysis, no complaints of chest pain. No altered mentation. Review of Systems All systems: negative Constitutional: Denies chills, Denies fever Eyes: denies blurred vision, denies pain Ears, nose, mouth and throat: Denies headache, Denies sore throat Cardiovascular: Denies chest pain, Denies shortness of breath Respiratory: Reports congestion, Reports dyspnea, Reports home oxygen, Reports respiratory infections, Reports wheezing, Denies cough Gastrointestinal: Denies abdominal pain, Denies diarrhea, Denies nausea, Denies vomiting Genitourinary: Denies dysuria, Denies hematuria Musculoskeletal: Denies myalgias Integumentary: Denies pruritus, Denies rash Neurological: Denies numbness, Denies weakness Psychiatric: Denies anxiety, Denies depression Endocrine: Denies fatigue, Denies weight change Past Medical History Past Medical History: Atrial Fibrillation, Asthma, Heart Failure, COPD, Diabetes Mellitus, GERD/Reflux, Hearing Disorder / Deafness, Hypertension, Osteoarthritis (OA), Pneumonia, Renal Disease, Thyroid Disorder Additional Past Medical History / Comment(s): HOLE IN RIGHT RETINA. hiatal hernia, anemia, chronic hypoxic respiratory failure, recent pulmonary infection with pseudomonas aeruginosa confirmed via bronchoscopy and the lavage History of Any Multi-Drug Resistant Organisms: Other MDRO Past Surgical History: Cholecystectomy, Hysterectomy Additional Past Surgical History / Comment(s): CATARACT REMOVAL LEFT EYE. Past Anesthesia/Blood Transfusion Reactions: No Reported Reaction Past Psychological History: Anxiety, Panic Disorder Smoking Status: Never smoker Past Alcohol Use History: None Reported Past Drug Use History: None Reported - Past Family History Mother Family Medical History: No Reported History Medications and Allergies Home Medications Medication Instructions Recorded Confirmed Type ALPRAZolam [Xanax] 0.5 mg PO TID 01/16/19 10/24/19 History Alendronate Sodium [Fosamax] 70 mg PO FR 01/16/19 10/24/19 History Citalopram Hydrobromide 40 mg PO DAILY 01/16/19 10/24/19 History [Citalopram HBr] Diltiazem HCl [Diltiazem HCl 24Hr 180 mg PO DAILY 01/16/19 10/24/19 History ER] Ipratropium Nebulized [Atrovent 0.5 mg INHALATION RT-QID 01/16/19 10/24/19 History Nebulized 0.2 MG/ML] Levothyroxine Sodium [Synthroid] 50 mcg PO DAILY 01/16/19 10/24/19 History Losartan [Cozaar] 50 mg PO DAILY 01/16/19 10/24/19 History Lovastatin [Mevacor] 40 mg PO DAILY 01/16/19 10/24/19 History Potassium Chloride [Klor-Con 20] 20 meq PO BID 01/16/19 10/24/19 History Zafirlukast [Accolate] 20 mg PO BID 01/16/19 10/24/19 History traMADol HCL 50 mg PO TID PRN 01/16/19 10/24/19 History Albuterol Nebulized [Ventolin 2.5 mg INHALATION RT-Q6H PRN 04/26/19 10/24/19 History Nebulized] Insulin Glargine [Lantus] 30 unit SQ DAILY 06/28/19 10/24/19 History Warfarin Sodium [Coumadin] 5 mg PO HS 06/28/19 10/24/19 History Albuterol Sulfate [Ventolin HFA] 1 - 2 puff INHALATION RT-Q6H PRN 08/07/19 10/24/19 History Loratadine [Claritin] 10 mg PO DAILY 08/07/19 10/24/19 History Ferrous Sulfate [Iron (65 MG 325 mg PO DAILY #30 tab 08/10/19 10/24/19 Rx Elemental)] guaiFENesin [Mucinex] 600 mg PO Q12HR PRN #14 tablet.er 08/10/19 10/24/19 Rx Insulin Regular, Human [NovoLIN R] See Protocol SQ ACHS MDD 30 UNITS 09/11/19 10/24/19 History Budesonide-Formot 160-4.5 Mcg 2 puff INHALATION RT-BID #1 puff 09/15/19 10/24/19 Rx [Symbicort 160-4.5 Mcg Inhaler] Pantoprazole [Protonix] 40 mg PO AC-BRKFST #30 tablet. 09/15/19 10/24/19 Rx Furosemide [Lasix] 40 mg PO DAILY 10/24/19 10/24/19 History Allergies Allergy/AdvReac Type Severity Reaction Status Date / Time Iodinated Contrast Media Allergy Unknown, Verified 10/23/19 23:47 POOR RENAL FUNCTIONS Sulfa (Sulfonamide Allergy Unknown Verified 10/23/19 23:47 Antibiotics) latex AdvReac Rash/Hives Verified 10/23/19 23:47 Penicillins AdvReac Rash/Hives Verified 10/23/19 23:47 Physical Exam Vitals: Vital Signs Temp Pulse Pulse Resp BP BP Pulse Ox 10/24/19 11:47 92 10/24/19 11:25 96 10/24/19 11:22 97.5 F L 98 20 165/89 97 10/24/19 08:04 88 10/24/19 08:00 97.4 F L 99 20 149/71 97 10/24/19 07:48 88 10/24/19 04:00 99.0 F 88 20 157/67 96 10/24/19 02:50 99.0 F 88 18 157/67 96 10/24/19 02:11 92 19 156/72 95 10/24/19 01:24 93 28 H 142/59 95 10/24/19 01:08 90 10/24/19 00:48 93 10/24/19 00:37 96 30 H 160/87 99 10/23/19 23:45 99.3 F 102 H 34 H 156/70 92 L Intake and Output 10/23/19 10/24/19 10/24/19 22:59 06:59 14:59 Other: Voiding Method Toilet # Voids 1 1 # Bowel Movements 1 Weight 98.9 kg GENERAL EXAM: Alert, very pleasant, 74-year-old white female, on 3 L of oxygen with a pulse ox of 97%, comfortable in no apparent distress. HEAD: Normocephalic/atraumatic. EYES: Normal reaction of pupils, equal size. Conjunctiva pink, sclera white. NOSE: Clear with pink turbinates. THROAT: No erythema or exudates. NECK: No masses, no JVD, no thyroid enlargement, no adenopathy. CHEST: No chest wall deformity. Symmetrical expansion. LUNGS: Equal air entry with some scattered wheezes and rhonchi CVS: Regular rate and rhythm, normal S1 and S2, no gallops, no murmurs, no rubs ABDOMEN: Soft, nontender. No hepatosplenomegaly, normal bowel sounds, no guarding or rigidity. EXTREMITIES: No clubbing, chronic venous stasis changes involving lower extrem ities, and mild pretibial edema, no cyanosis, 2+ pulses and upper and lower extremities. MUSCULOSKELETAL: Muscle strength and tone normal. SPINE: No scoliosis or deformity SKIN: No rashes CENTRAL NERVOUS SYSTEM: Alert and oriented -3. No focal deficits, tone is normal in all 4 extremities. PSYCHIATRIC: Alert and oriented -3. Appropriate affect. Intact judgment and insight. Results - Laboratory Findings CBC and BMP: 10/24/19 00:21 10/24/19 00:21 PT/INR, D-dimer PT 31.6 sec (9.0-12.0) H 10/24/19 09:03 INR 3.2 (<1.2) H 10/24/19 09:03 Abnormal lab findings: Abnormal Labs 10/24/19 10/24/19 10/24/19 00:21 00:21 00:21 RBC 3.70 L Hgb 9.8 L Hct 30.8 L RDW 16.2 H PT 29.4 H INR 3.0 H APTT 47.0 H Sodium 135 L Carbon Dioxide 31 H BUN 28 H Creatinine 1.09 H Glucose 282 H POC Glucose (mg/dL) Calcium 7.9 L Total Protein 6.1 L Albumin 3.1 L 10/24/19 10/24/19 10/24/19 06:18 09:03 11:57 RBC Hgb Hct RDW PT 31.6 H INR 3.2 H APTT Sodium Carbon Dioxide BUN Creatinine Glucose POC Glucose (mg/dL) 350 H >600 H Calcium Total Protein Albumin 10/24/19 12:00 RBC Hgb Hct RDW PT INR APTT Sodium Carbon Dioxide BUN Creatinine Glucose POC Glucose (mg/dL) >600 H Calcium Total Protein Albumin - Diagnostic Findings Chest x-ray: report reviewed, image reviewed Additional studies: EKG reviewed Assessment and Plan Plan: Assessment: #1. Acute exacerbation of COPD/chronic bronchial asthma, moderately persistent, with tracheobronchitis possibly related to Pseudomonas. Chest x-ray has been reviewed showing diffuse interstitial infiltrates slightly increased compared last chest x-ray, on the background of chronic interstitial changes, possibly pulmonary fibrosis. #2. Chronic hypoxic respiratory failure related to advanced COPD, on 2 L of oxygen #3. 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 Paroxysmal atrial fibrillation on Coumadin currently in sinus mechanism, INR therapeutic on admission at 3.0 #5. Diabetes mellitus type 2 #6. Chronic kidney disease, stage II #7. Hypertension #8. Osteoarthritis #9. Hypothyroidism #10. Chronic interstitial changes present on the chest x-ray likely related to underlying pulmonary fibrosis/scarring from previous pulmonary infections Plan: Continue with IV steroids, nebulized bronchodilators, we will stop the azithromycin and Rocephin, we'll switch to patient to meropenem. Chest x-ray has been reviewed, showing mostly chronic changes, related to pulmonary fibrosis. Send a sputum for culture, we'll continue to follow I performed a history & physical examination of the patient and discussed their management with my nurse practitioner, Maryjo Parisi. I reviewed the nurse practitioner's note and agree with the documented findings and plan of care. Lung sounds are positive for diffuse wheezes throughout the lung carrera. The findings and the impression was discussed with the patient. I attest to the documentation by the nurse practitioner. Time with Patient: Greater than 30
[2019-10-24] MEDS: INSULIN ASPART (NovoLOG) 100 UNIT/ML VIAL SQ SCH ×3 (13:10→21:11)
[2019-10-24] MEDS ORDERED: INSULIN ASPART (NovoLOG) 100 UNIT/ML VIAL SQ ONE ×3 (13:30→16:37)
[2019-10-24 14:57] LABS: Glucose,Whole Blood 517 mg/dL (75-99)
[2019-10-24 16:27] LABS: Glucose,Whole Blood 401 mg/dL (75-99)
[2019-10-24] MEDS ORDERED: MEROPENEM 1 GM in SODIUM CHLORIDE 0.9% 100 ML IVPB SCH (17:00)
[2019-10-24 19:07] LABS: Glucose,Whole Blood 365 mg/dL (75-99)
[2019-10-24] MEDS: FORMOTEROL FUMARATE 20 MCG/2 ML NEBU INHALATION SCH (19:25)
[2019-10-24] MEDS: BUDESONIDE 1 MG/2 ML NEBU INHALATION SCH (19:26)
[2019-10-24] MEDS: WARFARIN 5 MG TAB PO SCH (19:35)
[2019-10-24 19:49] LABS: Glucose,Whole Blood 321 mg/dL (75-99)
[2019-10-24] MEDS ORDERED: SYMBICORT 160-4.5 MCG INHALER INHALATION SCH (20:00)
[2019-10-24] MEDS: MEROPENEM 1 GM in SODIUM CHLORIDE 0.9% 100 ML IVPB SCH (20:08)
[2019-10-24] MEDS ORDERED: AZITHROMYCIN 500 MG in SODIUM CHLORIDE 0.9% 250 ML IVPB SCH (21:00)
[2019-10-24] MEDS: MONTELUKAST 10 MG TAB PO SCH (21:10)
--- NOTE | 2019-10-24 22:55 | P.HPIM ---
History of Present Illness H&P Date: 10/24/19 Chief Complaint: Shortness of breath. Patient is been 74-year-old female with a known history of paroxysmal atrial fibrillation on anticoagulation with Coumadin, advancing COPD, diabetes type 2 insulin-dependent neck, hypertension, GERD, osteoarthritis, hearing disorder/deafness, hypothyroidism, anxiety and panic disorder and other multiple medical problems presents to ER with complaints of worsening shortness of breath, cough and wheezing for the past 4 to 5 days. Otherwise patient denied any fever or chills. No nausea vomiting or abdominal pain or diarrhea. No com plaints of chest pain. Patient was started on antibiotics as per previous Bal cultures positive for pseudomonas aeruginosa. Chest x-ray showed increasing pulmonary interstitial infiltrates compared to recent exam. This could relate to acute interstitial pneumonia superimposed on some pulmonary fibrosis. EKG showed normal sinus rhythm with left anterior fascicular block. Laboratory data showed WBC 7.4, hemoglobin 9.8 and platelets 163 INR 3.0 Sodium 135, potassium 4.8, bicarb is 31, BUN 28 and creatinine 1.09 blood sugar is 282 COVID-19 negative PCR proBNP 427 Patient has been afebrile and currently on 3 L oxygen via nasal cannula. Troponin 0 0.012 Review of Systems Constitutional: Patient denies any fever or chills . No generalized weakness or weight loss. Abdomen: Patient denied nausea vomiting and diarrhea and abdominal pain. Cardiovascular: Patient denies any chest pain or short of breath no palpitations. Respiratory: Patient does have cough without much sputum production and shortness of breath Neurologic: Patient denied any numbness or tingling headache. Musculoskeletal: Patient denies any complaints of joint swelling or deformity. Skin: Negative Psychiatric: Negative Endocrine: No heat or cold intolerance. No recent weight gain. Genitourinary: No dysuria or hematuria. All other 14 point ROS negative except the above Past Medical History Past Medical History: Atrial Fibrillation, Asthma, Heart Failure, COPD, Diabetes Mellitus, GERD/Reflux, Hearing Disorder / Deafness, Hypertension, Osteoarthritis (OA), Pneumonia, Renal Disease, Thyroid Disorder Additional Past Medical History / Comment(s): HOLE IN RIGHT RETINA. hiatal hernia, anemia, chronic hypoxic respiratory failure, recent pulmonary infection with pseudomonas aeruginosa confirmed via bronchoscopy and the lavage History of Any Multi-Drug Resistant Organisms: Other MDRO Past Surgical History: Cholecystectomy, Hysterectomy Additional Past Surgical History / Comment(s): CATARACT REMOVAL LEFT EYE. Past Anesthesia/Blood Transfusion Reactions: No Reported Reaction Past Psychological History: Anxiety, Panic Disorder Smoking Status: Never smoker Past Alcohol Use History: None Reported Past Drug Use History: None Reported - Past Family History Mother Family Medical History: No Reported History Medications and Allergies Home Medications Medication Instructions Recorded Confirmed Type ALPRAZolam [Xanax] 0.5 mg PO TID 01/16/19 10/24/19 History Alendronate Sodium [Fosamax] 70 mg PO FR 01/16/19 10/24/19 History Citalopram Hydrobromide 40 mg PO DAILY 01/16/19 10/24/19 History [Citalopram HBr] Diltiazem HCl [Diltiazem HCl 24Hr 180 mg PO DAILY 01/16/19 10/24/19 History ER] Ipratropium Nebulized [Atrovent 0.5 mg INHALATION RT-QID 01/16/19 10/24/19 History Nebulized 0.2 MG/ML] Levothyroxine Sodium [Synthroid] 50 mcg PO DAILY 01/16/19 10/24/19 History Losartan [Cozaar] 50 mg PO DAILY 01/16/19 10/24/19 History Lovastatin [Mevacor] 40 mg PO DAILY 01/16/19 10/24/19 History Potassium Chloride [Klor-Con 20] 20 meq PO BID 01/16/19 10/24/19 History Zafirlukast [Accolate] 20 mg PO BID 01/16/19 10/24/19 History traMADol HCL 50 mg PO TID PRN 01/16/19 10/24/19 History Albuterol Nebulized [Ventolin 2.5 mg INHALATION RT-Q6H PRN 04/26/19 10/24/19 History Nebulized] Insulin Glargine [Lantus] 30 unit SQ DAILY 06/28/19 10/24/19 History Warfarin Sodium [Coumadin] 5 mg PO HS 06/28/19 10/24/19 History Albuterol Sulfate [Ventolin HFA] 1 - 2 puff INHALATION RT-Q6H PRN 08/07/19 10/24/19 History Loratadine [Claritin] 10 mg PO DAILY 08/07/19 10/24/19 History Ferrous Sulfate [Iron (65 MG 325 mg PO DAILY #30 tab 08/10/19 10/24/19 Rx Elemental)] guaiFENesin [Mucinex] 600 mg PO Q12HR PRN #14 tablet.er 08/10/19 10/24/19 Rx Insulin Regular, Human [NovoLIN R] See Protocol SQ ACHS MDD 30 UNITS 09/11/19 10/24/19 History Budesonide-Formot 160-4.5 Mcg 2 puff INHALATION RT-BID #1 puff 09/15/19 10/24/19 Rx [Symbicort 160-4.5 Mcg Inhaler] Pantoprazole [Protonix] 40 mg PO AC-BRKFST #30 tablet. 09/15/19 10/24/19 Rx Furosemide [Lasix] 40 mg PO DAILY 10/24/19 10/24/19 History Allergies Allergy/AdvReac Type Severity Reaction Status Date / Time Iodinated Contrast Media Allergy Unknown, Verified 10/23/19 23:47 POOR RENAL FUNCTIONS Sulfa (Sulfonamide Allergy Unknown Verified 10/23/19 23:47 Antibiotics) latex AdvReac Rash/Hives Verified 10/23/19 23:47 Penicillins AdvReac Rash/Hives Verified 10/23/19 23:47 Physical Exam Vitals: Vital Signs Temp Pulse Pulse Resp BP BP Pulse Ox 10/24/19 11:47 92 10/24/19 11:25 96 10/24/19 11:22 97.5 F L 98 20 165/89 97 10/24/19 08:04 88 10/24/19 08:00 97.4 F L 99 20 149/71 97 10/24/19 07:48 88 10/24/19 04:00 99.0 F 88 20 157/67 96 10/24/19 02:50 99.0 F 88 18 157/67 96 10/24/19 02:11 92 19 156/72 95 10/24/19 01:24 93 28 H 142/59 95 10/24/19 01:08 90 10/24/19 00:48 93 10/24/19 00:37 96 30 H 160/87 99 10/23/19 23:45 99.3 F 102 H 34 H 156/70 92 L Intake and Output 10/23/19 10/24/19 10/24/19 22:59 06:59 14:59 Intake Total 100 Balance 100 Intake: Oral 100 Other: Voiding Method Toilet # Voids 1 1 # Bowel Movements 1 Weight 98.9 kg PHYSICAL EXAMINATION: Patient is lying in the bed comfortably, no acute distress, awake alert and oriented.. HEENT: Normocephalic. Neck is supple. Pupils reactive. Nostrils clear. Oral cavity is moist. Ears reveal no drainage. Neck reveals no JVD, carotid bruits, or thyromegaly. CHEST EXAMINATION: Trachea is central. Symmetrical expansion. Bibasilar coarse breath sounds and expiratory wheezing. Scattered rhonchi.. CARDIAC: Normal S1, S2 with no gallops. No murmurs ABDOMEN: Soft. Bowel sounds normal. No organomegaly. No abdominal bruits. Extremities: reveal no edema. No clubbing or cyanosis Neurologically awake, alert, oriented x3 with well-coordinated movements. No focal deficits noted Skin: No rash or skin lesions. Psychiatric: Coperative. Nonsuicidal Musculoskeletal: No joint swelling or deformity. Normal range of motion. Results CBC & Chem 7: 10/24/19 00:21 10/24/19 12:04 Labs: Abnormal Lab Results - Last 24 Hours (Table) 10/24/19 10/24/19 10/24/19 Range/Units 00:21 00:21 00:21 RBC 3.70 L (3.80-5.40) m/uL Hgb 9.8 L (11.4-16.0) gm/dL Hct 30.8 L (34.0-46.0) % RDW 16.2 H (11.5-15.5) % PT 29.4 H (9.0-12.0) sec INR 3.0 H (<1.2) APTT 47.0 H (22.0-30.0) sec Sodium 135 L (137-145) mmol/L Carbon Dioxide 31 H (22-30) mmol/L BUN 28 H (7-17) mg/dL Creatinine 1.09 H (0.52-1.04) mg/dL Glucose 282 H (74-99) mg/dL POC Glucose (mg/dL) (75-99) mg/dL Calcium 7.9 L (8.4-10.2) mg/dL Total Protein 6.1 L (6.3-8.2) g/dL Albumin 3.1 L (3.5-5.0) g/dL 10/24/19 10/24/19 10/24/19 Range/Units 06:18 09:03 11:57 RBC (3.80-5.40) m/uL Hgb (11.4-16.0) gm/dL Hct (34.0-46.0) % RDW (11.5-15.5) % PT 31.6 H (9.0-12.0) sec INR 3.2 H (<1.2) APTT (22.0-30.0) sec Sodium (137-145) mmol/L Carbon Dioxide (22-30) mmol/L BUN (7-17) mg/dL Creatinine (0.52-1.04) mg/dL Glucose (74-99) mg/dL POC Glucose (mg/dL) 350 H >600 H (75-99) mg/dL Calcium (8.4-10.2) mg/dL Total Protein (6.3-8.2) g/dL Albumin (3.5-5.0) g/dL 10/24/19 10/24/19 Range/Units 12:00 12:04 RBC (3.80-5.40) m/uL Hgb (11.4-16.0) gm/dL Hct (34.0-46.0) % RDW (11.5-15.5) % PT (9.0-12.0) sec INR (<1.2) APTT (22.0-30.0) sec Sodium (137-145) mmol/L Carbon Dioxide (22-30) mmol/L BUN (7-17) mg/dL Creatinine (0.52-1.04) mg/dL Glucose 622 H* (74-99) mg/dL POC Glucose (mg/dL) >600 H (75-99) mg/dL Calcium (8.4-10.2) mg/dL Total Protein (6.3-8.2) g/dL Albumin (3.5-5.0) g/dL Thrombosis Risk Factor Assmnt - DVT/VTE Prophylaxis DVT/VTE Prophylaxis: Pharmacologic Prophylaxis ordered - Choose All That Apply Each Risk Factor Represents 2 Points: Age 61-74 years Thrombosis Risk Factor Assessment Total Risk Factor Score: 2 Thrombosis Risk Factor Assessment Level: Low Risk Assessment and Plan Assessment: Acute COPD exacerbation with tracheobronchitis with recent BAL fluid culture showing Pseudomonas. Chronic hypoxic respiratory failure on home oxygen Pulmonary fibrosis with chronic interstitial lung changes Hyperglycemia with uncontrolled diabetes type 2 Paroxysmal atrial fibrillation on anticoagulation with Eliquis Hypertension Hypothyroidism Osteoarthritis DVT prophylaxis patient is already on therapeutic dose of Coumadin. Plan: Patient be continued on duo nebs and Pulmicort was added. Patient was initially given ceftriaxone and azithromycin. Currently patient is on meropenem as per recent BAL/sputum culture report sensitivity. Repeat sputum culture was sent. Pulmonary is following. Follow-up culture reports. Continue with home medications and further recommendations based on clinical course. Prognosis guarded. Time with Patient: Greater than 30
[2019-10-25 02:01] LABS: Glucose,Whole Blood 293 mg/dL (75-99)
[2019-10-25] MEDS: MEROPENEM 1 GM in SODIUM CHLORIDE 0.9% 100 ML IVPB SCH ×2 (03:31→11:06)
[2019-10-25] MEDS: LEVOTHYROXINE 50 MCG TAB PO SCH (06:01)
[2019-10-25 06:25] LABS: Glucose,Whole Blood 266 mg/dL (75-99)
[2019-10-25] MEDS: PANTOPRAZOLE 40 MG TABLET PO SCH (06:30)
[2019-10-25] MEDS: INSULIN ASPART (NovoLOG) 100 UNIT/ML VIAL SQ SCH ×4 (06:30→20:38)
[2019-10-25 06:37] LABS: Basophils % (A) 0 %; Eosinophils % (A) 0 %; HCT 29.4 % (34.0-46.0); HGB 9.2 gm/dL (11.4-16.0); Hypochromasia Slight; Lymphocytes # (A) 1.1 k/uL (1.0-4.8); Lymphocytes % (A) 10 %; MCH 26.3 pg (25.0-35.0); MCHC 31.3 g/dL (31.0-37.0); MCV 84.2 fL (80.0-100.0); Monocytes # (A) 0.4 k/uL (0-1.0); Monocytes % (A) 4 %; Neutrophils # (A) 9.1 k/uL (1.3-7.7); Neutrophils % (A) 85 %; Platelet Count 190 k/uL (150-450); RDW 15.9 % (11.5-15.5); WBC 10.7 k/uL (3.8-10.6)
[2019-10-25 06:47] LABS: INR 3.1 (<1.2)
[2019-10-25 07:28] LABS: Calcium 7.6 mg/dL (8.4-10.2); Potassium 4.8 mmol/L (3.5-5.1)
[2019-10-25] MEDS: BUDESONIDE 1 MG/2 ML NEBU INHALATION SCH ×2 (08:11→20:03)
[2019-10-25] MEDS: FORMOTEROL FUMARATE 20 MCG/2 ML NEBU INHALATION SCH ×2 (08:11→20:03)
[2019-10-25] MEDS: IPRATROPIUM-ALBUTEROL 3 ML NEB INHALATION PRN ×3 (08:12→20:03)
[2019-10-25] MEDS: DILTIAZEM CD 180 MG CAP.ER.24H PO SCH (08:40)
[2019-10-25] MEDS: ATORVASTATIN 10 MG TAB PO SCH (08:40)
[2019-10-25] MEDS: FUROSEMIDE 40 MG TAB PO SCH (08:40)
[2019-10-25] MEDS: LOSARTAN 50 MG TAB PO SCH (08:40)
[2019-10-25] MEDS: LORATADINE 10 MG TAB PO SCH (08:40)
[2019-10-25] MEDS: CITALOPRAM HYDROBROMIDE 20 MG TAB PO SCH (08:40)
[2019-10-25] MEDS: INSULIN DETEMIR (LEVEMIR) 100 UNIT/ML SYR SQ SCH (08:40)
[2019-10-25] MEDS: POTASSIUM CHLORIDE ER 20 MEQ TAB.ER PO SCH ×2 (08:40→20:00)
[2019-10-25] MEDS: FERROUS SULFATE 325 MG TAB PO SCH (08:40)
[2019-10-25] MEDS: ALPRAZolam 0.5 MG TAB PO SCH ×3 (08:40→20:00)
[2019-10-25 11:51] LABS: Glucose,Whole Blood 238 mg/dL (75-99)
[2019-10-25] MEDS: traMADol 50 MG TAB PO PRN ×2 (12:04→20:38)
--- NOTE | 2019-10-25 12:34 | P.PN ---
Subjective Progress Note Date: 10/25/19 74-year-old patient of Dr. Medrano, who is well-known to our practice from previous admissions for complications related to advanced COPD/chronic bronchial asthma, moderately persistent on home oxygen at 2 L, previous history of pseudomonal pulmonary infections, patient follows with Dr. Mendiola in the off ice. Other medical history includes paroxysmal A. fib on Coumadin, CHF, unspecified, diabetes mellitus type 2, GERD/reflux, hypertension, hypothyroidism. Patient presented to the hospital on 10/23/2019 with complaints of shortness of breath, cough, wheezing, her cough is minimally productive. Den ied any fever, denied any chills, no nausea vomiting, no complaints of chest pain, reports fatigue and decreased appetite. No increased swelling in her lower extremities. Chest x-ray shows increasing interstitial pulmonary infiltrates in addition to chronic interstitial changes present on previous chest x-rays, possibility of pulmonary fibrosis. White blood cell count was 7.4, hemoglobin is 9.8, INR was 3.0, sodium is 135, potassium is 4.8, CO2 31, BUN is 28, creatinine is 1.09, LFTs are within normal limits, proBNP was within normal limits at 427. Patient was initially started on azithromycin and Rocephin however patient has multiple BAL and sputum cultures from previous admissions positive for pseudomonas aeruginosa, most recent one showed resistance to Levaquin, imipenem, ciprofloxacin, and intermediate sensitivity to cefepime. On today's exam patient is resting quietly in bed, she is on 3 L of oxygen and a pulse ox of 97%, very bronchospastic and congested, but afebrile, vital signs are stable. No hemoptysis, no complaints of chest pain. No altered mentation. The patient is seen today 10/25/2019 in follow-up on the selective care unit. She is currently resting comfortably in bed. Awake and alert in no acute distress. She also was some dyspnea on minimal exertion. Still some cough and congestion. Maintaining good O2 saturations in the high 90s on 3 L/m per nasal cannula. She's been afebrile. We'll culture reveals no growth to date. Sputum culture revealing no growth to date. White count 10.7. Hemoglobin 9.2. INR 3.1. Sodium 135. Potassium 4.8. Creatinine 1.26. She is currently on meropenem. She remains on DuoNeb inhalations, Pulmicort and Perforomist inhalations, Singulair. Objective - Vital Signs Vital signs: Vital Signs Temp 96.8 F L 10/25/19 12:00 Pulse 81 10/25/19 12:00 Resp 17 10/25/19 12:00 BP 151/79 10/25/19 12:00 Pulse Ox 99 10/25/19 12:00 Intake & Output 10/24/19 10/25/19 10/25/19 18:59 06:59 18:59 Intake Total 540 220 240 Balance 540 220 240 Weight 99 kg Intake: IV 200 Meropenem 1 gm In Sodium 200 Chloride 0.9% 100 ml @ 200 mls/hr IVPB ONCE ONE Rx#:[id number] Intake, IV Titration 100 Amount Meropenem 1 gm In Sodium 100 Chloride 0.9% 100 ml @ 33 .3 mls/hr IVPB Q8H [facility] Rx #:[id number] Oral 340 120 240 Other: Voiding Method Toilet # Voids 1 2 # Bowel Movements 1 - Exam GENERAL EXAM: Alert, active, pleasant 74-year-old female patient, on 3 L nasal cannula, comfortable in no apparent distress. HEAD: Normocephalic. EYES: Normal reaction of pupils, equal size. NOSE: Clear with pink turbinates. THROAT: No erythema or exudates. NECK: No masses, no JVD. CHEST: No chest wall deformity. LUNGS: Equal air entry with bilateral end expiratory wheeze, diminished CVS: S1 and S2 normal with no audible murmur, regular rhythm. ABDOMEN: No hepatosplenomegaly, normal bowel sounds, no guarding or rigidity. SPINE: No scoliosis or deformity SKIN: No rashes CENTRAL NERVOUS SYSTEM: No focal deficits, tone is normal in all 4 extremities. EXTREMITIES: There is no peripheral edema. No clubbing, no cyanosis. Peripheral pulses are intact. - Labs CBC & Chem 7: 10/25/19 05:49 10/25/19 05:49 Labs: Abnormal Lab Results - Last 24 Hours (Table) 10/24/19 10/24/19 10/24/19 Range/Units 12:04 14:55 16:26 WBC (3.8-10.6) k/uL RBC (3.80-5.40) m/uL Hgb (11.4-16.0) gm/dL Hct (34.0-46.0) % RDW (11.5-15.5) % Neutrophils # (1.3-7.7) k/uL PT (9.0-12.0) sec INR (<1.2) Sodium (137-145) mmol/L BUN (7-17) mg/dL Creatinine (0.52-1.04) mg/dL Glucose 622 H* (74-99) mg/dL POC Glucose (mg/dL) 517 H 401 H (75-99) mg/dL Calcium (8.4-10.2) mg/dL 10/24/19 10/24/19 10/25/19 Range/Units 19:06 19:46 01:59 WBC (3.8-10.6) k/uL RBC (3.80-5.40) m/uL Hgb (11.4-16.0) gm/dL Hct (34.0-46.0) % RDW (11.5-15.5) % Neutrophils # (1.3-7.7) k/uL PT (9.0-12.0) sec INR (<1.2) Sodium (137-145) mmol/L BUN (7-17) mg/dL Creatinine (0.52-1.04) mg/dL Glucose (74-99) mg/dL POC Glucose (mg/dL) 365 H 321 H 293 H (75-99) mg/dL Calcium (8.4-10.2) mg/dL 10/25/19 10/25/19 10/25/19 Range/Units 05:49 05:49 05:49 WBC 10.7 H (3.8-10.6) k/uL RBC 3.50 L (3.80-5.40) m/uL Hgb 9.2 L (11.4-16.0) gm/dL Hct 29.4 L (34.0-46.0) % RDW 15.9 H (11.5-15.5) % Neutrophils # 9.1 H (1.3-7.7) k/uL PT 30.0 H (9.0-12.0) sec INR 3.1 H (<1.2) Sodium 135 L (137-145) mmol/L BUN 46 H (7-17) mg/dL Creatinine 1.26 H (0.52-1.04) mg/dL Glucose 240 H (74-99) mg/dL POC Glucose (mg/dL) (75-99) mg/dL Calcium 7.6 L (8.4-10.2) mg/dL 10/25/19 10/25/19 Range/Units 06:23 11:48 WBC (3.8-10.6) k/uL RBC (3.80-5.40) m/uL Hgb (11.4-16.0) gm/dL Hct (34.0-46.0) % RDW (11.5-15.5) % Neutrophils # (1.3-7.7) k/uL PT (9.0-12.0) sec INR (<1.2) Sodium (137-145) mmol/L BUN (7-17) mg/dL Creatinine (0.52-1.04) mg/dL Glucose (74-99) mg/dL POC Glucose (mg/dL) 266 H 238 H (75-99) mg/dL Calcium (8.4-10.2) mg/dL Microbiology - Last 24 Hours (Table) 10/24/19 15:44 Gram Stain - Preliminary Sputum Sputum Culture - Preliminary 10/24/19 01:09 Blood Culture - Preliminary Blood No Growth after 24 hours Assessment and Plan Assessment: #1. Acute exacerbation of COPD/chronic bronchial asthma, moderately persistent, with tracheobronchitis possibly related to Pseudomonas. Chest x-ray has been reviewed showing diffuse interstitial infiltrates slightly increased compared last chest x-ray, on the background of chronic interstitial changes, possibly pulmonary fibrosis. #2. Chronic hypoxic respiratory failure related to advanced COPD, on 2 L of oxygen #3. 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 Paroxysmal atrial fibrillation on Coumadin currently in sinus mechanism, INR therapeutic at 3.1 #5. Diabetes mellitus type 2 #6. Chronic kidney disease, stage II #7. Hypertension #8. Osteoarthritis #9. Hypothyroidism #10. Chronic interstitial changes present on the chest x-ray likely related to underlying pulmonary fibrosis/scarring from previous pulmonary infections Plan: The patient was seen and evaluated by Dr. Chow Improved today compared to yesterday Continue the current treatment plan Sputum culture reveals no growth to date Continue to follow I, the cosigning physician, performed a history & physical examination of the patient. Lungs sounds bilateral end expiratory wheeze, diminished. Maintaining good O2 saturations in the 90s on 3 L/m per nasal cannula. I discussed the assessment and plan of care with my nurse practitioner, Su Arias. I attest to the above note as dictated by her.
[2019-10-25 16:57] LABS: Glucose,Whole Blood 220 mg/dL (75-99)
[2019-10-25] MEDS: WARFARIN 5 MG TAB PO SCH (19:45)
[2019-10-25] MEDS: MONTELUKAST 10 MG TAB PO SCH (20:00)
[2019-10-25 20:34] LABS: Glucose,Whole Blood 255 mg/dL (75-99)
[2019-10-25] MEDS: guaiFENesin 600 MG TABLET.ER PO PRN (20:38)
--- NOTE | 2019-10-25 23:56 | P.PN ---
Subjective Progress Note Date: 10/25/19 Principal diagnosis: Acute purulent tracheobronchitis Acute COPD exacerbation Patient is been 74-year-old female with a known history of paroxysmal atrial fib rillation on anticoagulation with Coumadin, advancing COPD, diabetes type 2 insulin-dependent neck, hypertension, GERD, osteoarthritis, hearing disorder/deafness, hypothyroidism, anxiety and panic disorder and other multiple medical problems presents to ER with complaints of worsening shortness of b reath, cough and wheezing for the past 4 to 5 days. Otherwise patient denied any fever or chills. No nausea vomiting or abdominal pain or diarrhea. No complaints of chest pain. Patient was started on antibiotics as per previous Bal cultures positive for pseudomonas aeruginosa. Chest x-ray showed increasing pulmonary interstitial infiltrates compared to recent exam. This could relate to acute interstitial pneumonia superimposed on some pulmonary fibrosis. EKG showed normal sinus rhythm with left anterior fascicular block. Laboratory data showed WBC 7.4, hemoglobin 9.8 and platelets 163 INR 3.0 Sodium 135, potassium 4.8, bicarb is 31, BUN 28 and creatinine 1.09 blood sugar is 282 COVID-19 negative PCR proBNP 427 Patient has been afebrile and currently on 3 L oxygen via nasal cannula. Troponin 0 0.012 10/25/2019 Patient is currently sitting in the bed comfortably. Awake alert oriented x3. No acute distress. Breathing status did improve compared to yesterday. Still having dyspnea with minimal exertion and scattered rhonchi and coarse breath sounds on examination. Currently being continued on antibiotics in the form of meropenem. Sputum culture was sent. Patient was hyperglycemic overnight and did require insulin drip currently blood sugars controlled. Laboratory data showed WBC 10.7, hemoglobin 9.9 platelets 190 INR 3.1 Sodium 135, potassium 4.8, BUN 46 and creatinine 1.26 Pulmonary is following. Current medications reviewed. Objective - Vital Signs Vital signs: Vital Signs Temp 97 F L 10/25/19 15:00 Pulse 84 10/25/19 20:24 Resp 16 10/25/19 20:24 BP 124/52 10/25/19 15:00 Pulse Ox 97 10/25/19 15:00 Intake & Output 10/25/19 10/25/19 10/26/19 06:59 18:59 06:59 Intake Total 220 820 Balance 220 820 Weight 99 kg Intake: Intake, IV Titration 100 100 Amount Meropenem 1 gm In Sodium 100 Chloride 0.9% 100 ml @ 33 .3 mls/hr IVPB Q12H [facility] Rx#:[id number] Meropenem 1 gm In Sodium 100 Chloride 0.9% 100 ml @ 33 .3 mls/hr IVPB Q8H [facility] Rx #:[id number] Oral 120 720 Other: Voiding Method Toilet # Voids 2 1 # Bowel Movements 0 - Exam PHYSICAL EXAMINATION: Patient is lying in the bed comfortably, no acute distress, awake alert and oriented.. HEENT: Normocephalic. Neck is supple. Pupils reactive. Nostrils clear. Oral cavity is moist. Ears reveal no drainage. Neck reveals no JVD, carotid bruits, or thyromegaly. CHEST EXAMINATION: Trachea is central. Symmetrical expansion. Bibasilar coarse breath sounds and expiratory wheezing. Scattered rhonchi.. CARDIAC: Normal S1, S2 with no gallops. No murmurs ABDOMEN: Soft. Bowel sounds normal. No organomegaly. No abdominal bruits. Extremities: reveal no edema. No clubbing or cyanosis Neurologically awake, alert, oriented x3 with well-coordinated movements. No focal deficits noted Skin: No rash or skin lesions. Psychiatric: Coperative. Nonsuicidal Musculoskeletal: No joint swelling or deformity. Normal range of motion. - Labs CBC & Chem 7: 10/25/19 05:49 10/25/19 05:49 Labs: Abnormal Lab Results - Last 24 Hours (Table) 10/25/19 10/25/19 10/25/19 Range/Units 01:59 05:49 05:49 WBC 10.7 H (3.8-10.6) k/uL RBC 3.50 L (3.80-5.40) m/uL Hgb 9.2 L (11.4-16.0) gm/dL Hct 29.4 L (34.0-46.0) % RDW 15.9 H (11.5-15.5) % Neutrophils # 9.1 H (1.3-7.7) k/uL PT 30.0 H (9.0-12.0) sec INR 3.1 H (<1.2) Sodium (137-145) mmol/L BUN (7-17) mg/dL Creatinine (0.52-1.04) mg/dL Glucose (74-99) mg/dL POC Glucose (mg/dL) 293 H (75-99) mg/dL Calcium (8.4-10.2) mg/dL 10/25/19 10/25/19 10/25/19 Range/Units 05:49 06:23 11:48 WBC (3.8-10.6) k/uL RBC (3.80-5.40) m/uL Hgb (11.4-16.0) gm/dL Hct (34.0-46.0) % RDW (11.5-15.5) % Neutrophils # (1.3-7.7) k/uL PT (9.0-12.0) sec INR (<1.2) Sodium 135 L (137-145) mmol/L BUN 46 H (7-17) mg/dL Creatinine 1.26 H (0.52-1.04) mg/dL Glucose 240 H (74-99) mg/dL POC Glucose (mg/dL) 266 H 238 H (75-99) mg/dL Calcium 7.6 L (8.4-10.2) mg/dL 10/25/19 10/25/19 Range/Units 16:55 20:32 WBC (3.8-10.6) k/uL RBC (3.80-5.40) m/uL Hgb (11.4-16.0) gm/dL Hct (34.0-46.0) % RDW (11.5-15.5) % Neutrophils # (1.3-7.7) k/uL PT (9.0-12.0) sec INR (<1.2) Sodium (137-145) mmol/L BUN (7-17) mg/dL Creatinine (0.52-1.04) mg/dL Glucose (74-99) mg/dL POC Glucose (mg/dL) 220 H 255 H (75-99) mg/dL Calcium (8.4-10.2) mg/dL Microbiology - Last 24 Hours (Table) 10/24/19 15:44 Gram Stain - Preliminary Sputum Sputum Culture - Preliminary 10/24/19 01:09 Blood Culture - Preliminary Blood No Growth after 24 hours Assessment and Plan Assessment: Acute COPD exacerbation with tracheobronchitis with recent BAL fluid culture showing Pseudomonas. Chronic hypoxic respiratory failure on home oxygen Pulmonary fibrosis with chronic interstitial lung changes Hyperglycemia with uncontrolled diabetes type 2 Paroxysmal atrial fibrillation on anticoagulation with Eliquis Hypertension Hypothyroidism Osteoarthritis DVT prophylaxis patient is already on therapeutic dose of Coumadin. Plan: Patient be continued on duo nebs and Pulmicort was added. Patient was initially given ceftriaxone and azithromycin. Currently patient is on meropenem as per recent BAL/sputum culture report sensitivity. Repeat sputum culture was sent. no growth sofar. Pulmonary is following. Follow-up culture reports. Continue with home medications and further recommendations based on clinical course. Prognosis guarded. Time with Patient: Greater than 30
[2019-10-26 02:06] LABS: Glucose,Whole Blood 131 mg/dL (75-99)
[2019-10-26] MEDS: INSULIN ASPART (NovoLOG) 100 UNIT/ML VIAL SQ SCH ×4 (06:13→20:36)
[2019-10-26 06:14] LABS: Glucose,Whole Blood 100 mg/dL (75-99)
[2019-10-26] MEDS: LEVOTHYROXINE 50 MCG TAB PO SCH (06:17)
[2019-10-26] MEDS: PANTOPRAZOLE 40 MG TABLET PO SCH (06:17)
[2019-10-26] MEDS: IPRATROPIUM-ALBUTEROL 3 ML NEB INHALATION PRN ×5 (07:19→23:29)
[2019-10-26] MEDS: BUDESONIDE 1 MG/2 ML NEBU INHALATION SCH ×2 (07:19→18:41)
[2019-10-26] MEDS: FORMOTEROL FUMARATE 20 MCG/2 ML NEBU INHALATION SCH ×2 (07:20→18:41)
[2019-10-26] MEDS: LOSARTAN 50 MG TAB PO SCH (08:23)
[2019-10-26] MEDS: DILTIAZEM CD 180 MG CAP.ER.24H PO SCH (08:23)
[2019-10-26] MEDS: ALPRAZolam 0.5 MG TAB PO SCH ×3 (08:23→20:37)
[2019-10-26] MEDS: FERROUS SULFATE 325 MG TAB PO SCH (08:24)
[2019-10-26] MEDS: CITALOPRAM HYDROBROMIDE 20 MG TAB PO SCH (08:24)
[2019-10-26] MEDS: LORATADINE 10 MG TAB PO SCH (08:24)
[2019-10-26] MEDS: FUROSEMIDE 40 MG TAB PO SCH (08:25)
[2019-10-26] MEDS: ATORVASTATIN 10 MG TAB PO SCH (08:25)
[2019-10-26] MEDS: POTASSIUM CHLORIDE ER 20 MEQ TAB.ER PO SCH ×2 (08:26→20:36)
[2019-10-26] MEDS: traMADol 50 MG TAB PO PRN ×2 (08:27→22:08)
[2019-10-26] MEDS ORDERED: NON FORMULARY DRUG (Alendronate Sodium [Fosamax] 70 MG) PO SCH (09:08)
[2019-10-26] MEDS: INSULIN DETEMIR (LEVEMIR) 100 UNIT/ML SYR SQ SCH (09:41)
[2019-10-26 11:38] LABS: Glucose,Whole Blood 165 mg/dL (75-99)
[2019-10-26] MEDS: MEROPENEM 1 GM in SODIUM CHLORIDE 0.9% 100 ML IVPB SCH ×4 (12:37→23:10)
--- NOTE | 2019-10-26 12:47 | P.PN ---
Subjective Progress Note Date: 10/26/19 74-year-old patient of Dr. Medrano, who is well-known to our practice from previous admissions for complications related to advanced COPD/chronic bronchial asthma, moderately persistent on home oxygen at 2 L, previous history of pseudomonal pulmonary infections, patient follows with Dr. Mendiola in the off ice. Other medical history includes paroxysmal A. fib on Coumadin, CHF, unspecified, diabetes mellitus type 2, GERD/reflux, hypertension, hypothyroidism. Patient presented to the hospital on 10/23/2019 with complaints of shortness of breath, cough, wheezing, her cough is minimally productive. Den ied any fever, denied any chills, no nausea vomiting, no complaints of chest pain, reports fatigue and decreased appetite. No increased swelling in her lower extremities. Chest x-ray shows increasing interstitial pulmonary infiltrates in addition to chronic interstitial changes present on previous chest x-rays, possibility of pulmonary fibrosis. White blood cell count was 7.4, hemoglobin is 9.8, INR was 3.0, sodium is 135, potassium is 4.8, CO2 31, BUN is 28, creatinine is 1.09, LFTs are within normal limits, proBNP was within normal limits at 427. Patient was initially started on azithromycin and Rocephin however patient has multiple BAL and sputum cultures from previous admissions positive for pseudomonas aeruginosa, most recent one showed resistance to Levaquin, imipenem, ciprofloxacin, and intermediate sensitivity to cefepime. On today's exam patient is resting quietly in bed, she is on 3 L of oxygen and a pulse ox of 97%, very bronchospastic and congested, but afebrile, vital signs are stable. No hemoptysis, no complaints of chest pain. No altered mentation. The patient is seen today 10/25/2019 in follow-up on the selective care unit. She is currently resting comfortably in bed. Awake and alert in no acute distress. She also was some dyspnea on minimal exertion. Still some cough and congestion. Maintaining good O2 saturations in the high 90s on 3 L/m per nasal cannula. She's been afebrile. We'll culture reveals no growth to date. Sputum culture revealing no growth to date. White count 10.7. Hemoglobin 9.2. INR 3.1. Sodium 135. Potassium 4.8. Creatinine 1.26. She is currently on meropenem. She remains on DuoNeb inhalations, Pulmicort and Perforomist inhalations, Singulair. The patient is seen today 10/26/2019 in follow-up on the selective care unit. She is currently sitting up in bed. Awake and alert in no acute distress. Still dyspneic with minimal exertion. Still with a dry nonproductive cough. Still with some chest tightness and wheezing. Maintaining good O2 saturations on 3 L/m nasal cannula. She's afebrile. Hemodynamically stable. Blood culture reveals no growth to date. Sputum culture reveals no growth. Blood glucose 165. Continued on bronchodilators, meropenem. Objective - Vital Signs Vital signs: Vital Signs Temp 97.5 F L 10/26/19 07:53 Pulse 80 10/26/19 11:23 Resp 20 10/26/19 08:51 BP 135/61 10/26/19 07:53 Pulse Ox 100 10/26/19 07:53 Intake & Output 10/25/19 10/26/19 10/26/19 18:59 06:59 18:59 Intake Total 820 220 240 Balance 820 220 240 Weight 107.3 kg Intake: Intake, IV Titration 100 100 Amount Meropenem 1 gm In Sodium 100 100 Chloride 0.9% 100 ml @ 33 .3 mls/hr IVPB Q12H [facility] 234 BEDS AT [facility] Rx#:[id number] Oral 720 120 240 Other: Voiding Method Toilet # Voids 1 2 1 # Bowel Movements 0 - Exam GENERAL EXAM: Alert, active, pleasant 74-year-old female patient, on 3 L nasal cannula, comfortable in no apparent distress. HEAD: Normocephalic. EYES: Normal reaction of pupils, equal size. NOSE: Clear with pink turbinates. THROAT: No erythema or exudates. NECK: No masses, no JVD. CHEST: No chest wall deformity. LUNGS: Equal air entry with bilateral end expiratory wheeze, diminished CVS: S1 and S2 normal with no audible murmur, regular rhythm. ABDOMEN: No hepatosplenomegaly, normal bowel sounds, no guarding or rigidity. SPINE: No scoliosis or deformity SKIN: No rashes CENTRAL NERVOUS SYSTEM: No focal deficits, tone is normal in all 4 extremities. EXTREMITIES: There is no peripheral edema. No clubbing, no cyanosis. Peripheral pulses are intact. - Labs CBC & Chem 7: 10/25/19 05:49 10/25/19 05:49 Labs: Abnormal Lab Results - Last 24 Hours (Table) 10/25/19 10/25/19 10/26/19 Range/Units 16:55 20:32 02:05 POC Glucose (mg/dL) 220 H 255 H 131 H (75-99) mg/dL 10/26/19 10/26/19 Range/Units 06:13 11:27 POC Glucose (mg/dL) 100 H 165 H (75-99) mg/dL Microbiology - Last 24 Hours (Table) 10/24/19 01:09 Blood Culture - Preliminary Blood No Growth after 48 hours Assessment and Plan Assessment: #1. Acute exacerbation of COPD/chronic bronchial asthma, moderately persistent, with tracheobronchitis possibly related to Pseudomonas. Cultures thus far reveal no growth. Chest x-ray has been reviewed showing diffuse interstitial infiltrates slightly increased compared last chest x-ray, on the background of chronic interstitial changes, possibly pulmonary fibrosis. #2. Chronic hypoxic respiratory failure related to advanced COPD, on 2 L of oxygen #3. 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 Paroxysmal atrial fibrillation on Coumadin currently in sinus mechanism, INR therapeutic at 3.1 #5. Diabetes mellitus type 2 #6. Chronic kidney disease, stage II #7. Hypertension #8. Osteoarthritis #9. Hypothyroidism #10. Chronic interstitial changes present on the chest x-ray likely related to underlying pulmonary fibrosis/scarring from previous pulmonary infections Plan: The patient was seen and evaluated by Dr. Chow Still not quite back to her baseline Continue the current treatment plan Sputum culture reveals no growth to date Continue to follow I, the cosigning physician, performed a history & physical examination of the patient. Lungs sounds bilateral end expiratory wheeze, diminished. Maintaining good O2 saturations in the 90s on 3 L/m per nasal cannula. I discussed the assessment and plan of care with my nurse practitioner, Su Arias. I attest to the above note as dictated by her.
--- NOTE | 2019-10-26 15:16 | P.PN ---
Subjective Progress Note Date: 10/26/19 Principal diagnosis: Acute exacerbation COPD Pneumonia Acute exacerbation CHF 74-year-old patient of Dr. Medrano, who is well-known to our practice from previous admissions for complications related to advanced COPD/chronic bronchial asthma, moderately persistent on home oxygen at 2 L, previous history of pseudomonal pulmonary infections, patient follows with Dr. Mendiola in the office. Other medical history includes paroxysmal A. fib on Coumadin, CHF, unspecified, diabetes mellitus type 2, GERD/reflux, hypertension, hypothyroidism. Patient presented to the hospital on 10/23/2019 with complaints of shortness of breath, cough, wheezing, her cough is minimally productive. Denied any fever, denied any chills, no nausea vomiting, no complaints of chest pain, reports fatigue and decreased appetite. No increased swelling in her lower extremities. Chest x-ray shows increasing interstitial pulmonary infiltrates in addition to chronic interstitial changes present on previous chest x-rays, possibility of pulmonary fibrosis. 10/26/2019 Patient is seen in follow-up on the selective care unit. She is currently sitting up in bed. Awake and alert in no acute distress. Still dyspneic with minimal exertion. Still with a dry nonproductive cough. Still with some chest tightness and wheezing. Maintaining good O2 saturations on 3 L/m nasal cannula. She's afebrile. Hemodynamically stable. Blood culture reveals no growth to date. Sputum culture reveals no growth. Blood glucose 165. Continued on bronchodilators, meropenem. Objective - Vital Signs Vital signs: Vital Signs Temp 97.5 F L 10/26/19 07:53 Pulse 79 10/26/19 07:53 Resp 20 10/26/19 08:51 BP 135/61 10/26/19 07:53 Pulse Ox 100 10/26/19 07:53 Intake & Output 10/25/19 10/26/19 10/26/19 18:59 06:59 18:59 Intake Total 820 220 Balance 820 220 Weight 107.3 kg Intake: Intake, IV Titration 100 100 Amount Meropenem 1 gm In Sodium 100 100 Chloride 0.9% 100 ml @ 33 .3 mls/hr IVPB Q12H [facility] Rx#:[id number] Oral 720 120 Other: Voiding Method Toilet # Voids 1 2 # Bowel Movements 0 - Exam PHYSICAL EXAMINATION: GENERAL: The patient is alert and oriented x3, not in any acute distress. Well developed, well nourished. HEENT: Pupils are round and equally reacting to light. EOMI. No scleral icterus. No conjunctival pallor. Normocephalic, atraumatic. No pharyngeal erythema. No thyromegaly. CARDIOVASCULAR: S1 and S2 present. No murmurs, rubs, or gallops. PULMONARY: Chest is clear to auscultation, no wheezing or crackles. ABDOMEN: Soft, nontender, nondistended, normoactive bowel sounds. No palpable organomegaly. MUSCULOSKELETAL: No joint swelling or deformity. EXTREMITIES: No cyanosis, clubbing, or pedal edema. NEUROLOGICAL: Gross neurological examination did not reveal any focal deficits. SKIN: No rashes. - Labs CBC & Chem 7: 10/25/19 05:49 10/25/19 05:49 Labs: Abnormal Lab Results - Last 24 Hours (Table) 10/25/19 10/25/19 10/25/19 Range/Units 11:48 16:55 20:32 POC Glucose (mg/dL) 238 H 220 H 255 H (75-99) mg/dL 10/26/19 10/26/19 Range/Units 02:05 06:13 POC Glucose (mg/dL) 131 H 100 H (75-99) mg/dL Microbiology - Last 24 Hours (Table) 10/24/19 01:09 Blood Culture - Preliminary Blood No Growth after 48 hours 10/24/19 15:44 Gram Stain - Preliminary Sputum Sputum Culture - Preliminary Assessment and Plan Assessment: Acute COPD exacerbation with tracheobronchitis with recent BAL fluid culture showing Pseudomonas. Chronic hypoxic respiratory failure on home oxygen Pulmonary fibrosis with chronic interstitial lung changes Hyperglycemia with uncontrolled diabetes type 2 Paroxysmal atrial fibrillation on anticoagulation with Eliquis Hypertension Hypothyroidism Osteoarthritis DVT prophylaxis patient is already on therapeutic dose of Coumadin. Plan: Patient be continued on duo nebs and Pulmicort was added. Patient was initially given ceftriaxone and azithromycin. Currently patient is on meropenem as per recent BAL/sputum culture report sensitivity. Repeat sputum culture was sent. no growth sofar. Pulmonary is following. Follow-up culture reports. Continue with home medications and further recommendations based on clinical course. Prognosis guarded.
[2019-10-26 16:52] LABS: Glucose,Whole Blood 125 mg/dL (75-99)
[2019-10-26] MEDS: methylPREDNISolone SOD SUCCI 40 MG/ML 1 ML VIAL IV SCH ×2 (17:09→23:09)
[2019-10-26 20:26] LABS: Glucose,Whole Blood 237 mg/dL (75-99)
[2019-10-26] MEDS: MONTELUKAST 10 MG TAB PO SCH (20:36)
[2019-10-26] MEDS: WARFARIN 5 MG TAB PO SCH (20:37)
[2019-10-26] MEDS: guaiFENesin 600 MG TABLET.ER PO PRN (22:05)
[2019-10-27] MEDS: IPRATROPIUM-ALBUTEROL 3 ML NEB INHALATION PRN ×6 (03:32→23:27)
[2019-10-27 06:11] LABS: Glucose,Whole Blood 383 mg/dL (75-99)
[2019-10-27] MEDS: INSULIN ASPART (NovoLOG) 100 UNIT/ML VIAL SQ SCH ×5 (06:30→20:20)
[2019-10-27] MEDS: PANTOPRAZOLE 40 MG TABLET PO SCH (06:30)
[2019-10-27] MEDS: LEVOTHYROXINE 50 MCG TAB PO SCH (06:30)
[2019-10-27 06:53] LABS: Anisocytosis Slight; Basophils % (A) 0 %; Eosinophils % (A) 0 %; HCT 30.9 % (34.0-46.0); HGB 9.4 gm/dL (11.4-16.0); Hypochromasia Moderate; Lymphocytes # (A) 0.5 k/uL (1.0-4.8); Lymphocytes % (A) 7 %; MCH 26.1 pg (25.0-35.0); MCHC 30.3 g/dL (31.0-37.0); Mean Platelet Volume 7.6; Monocytes # (A) 0.1 k/uL (0-1.0); Monocytes % (A) 1 %; Neutrophils # (A) 6.5 k/uL (1.3-7.7); Neutrophils % (A) 92 %; Platelet Count 220 k/uL (150-450); RBC 3.59 m/uL (3.80-5.40); RDW 16.2 % (11.5-15.5); WBC 7.1 k/uL (3.8-10.6)
[2019-10-27 07:02] LABS: Calcium 7.9 mg/dL (8.4-10.2); Potassium 5.4 mmol/L (3.5-5.1)
[2019-10-27] MEDS: FORMOTEROL FUMARATE 20 MCG/2 ML NEBU INHALATION SCH ×2 (08:23→20:18)
[2019-10-27] MEDS: BUDESONIDE 1 MG/2 ML NEBU INHALATION SCH ×2 (08:23→20:18)
[2019-10-27] MEDS: methylPREDNISolone SOD SUCCI 40 MG/ML 1 ML VIAL IV SCH ×3 (09:07→23:10)
[2019-10-27] MEDS: CITALOPRAM HYDROBROMIDE 20 MG TAB PO SCH (09:09)
[2019-10-27] MEDS: DILTIAZEM CD 180 MG CAP.ER.24H PO SCH (09:09)
[2019-10-27] MEDS: ALPRAZolam 0.5 MG TAB PO SCH ×3 (09:09→20:19)
[2019-10-27] MEDS: LORATADINE 10 MG TAB PO SCH (09:09)
[2019-10-27] MEDS: FERROUS SULFATE 325 MG TAB PO SCH (09:09)
[2019-10-27] MEDS: FUROSEMIDE 40 MG TAB PO SCH (09:09)
[2019-10-27] MEDS: ATORVASTATIN 10 MG TAB PO SCH (09:09)
[2019-10-27] MEDS: LOSARTAN 50 MG TAB PO SCH (09:09)
[2019-10-27] MEDS: POTASSIUM CHLORIDE ER 20 MEQ TAB.ER PO SCH ×2 (09:10→20:12)
[2019-10-27] MEDS: INSULIN DETEMIR (LEVEMIR) 100 UNIT/ML SYR SQ SCH (09:10)
--- NOTE | 2019-10-27 11:57 | P.PN ---
Subjective Progress Note Date: 10/27/19 Principal diagnosis: Acute exacerbation of COPD 74-year-old patient of Dr. Medrano, who is well-known to our practice from previous admissions for complications related to advanced COPD/chronic bronchial asthma, moderately persistent on home oxygen at 2 L, previous history of pse udomonal pulmonary infections, patient follows with Dr. Mendiola in the office. Other medical history includes paroxysmal A. fib on Coumadin, CHF, unspecified, diabetes mellitus type 2, GERD/reflux, hypertension, hypothyroidism. Patient presented to the hospital on 10/23/2019 with complaints of shortness of breath, cough, wheezing, her cough is minimally productive. Denied any fever, denied any chills, no nausea vomiting, no complaints of chest pain, reports fatigue and decreased appetite. No increased swelling in her lower extremities. Chest x- ray shows increasing interstitial pulmonary infiltrates in addition to chronic interstitial changes present on previous chest x-rays, possibility of pulmonary fibrosis. White blood cell count was 7.4, hemoglobin is 9.8, INR was 3.0, sodium is 135, potassium is 4.8, CO2 31, BUN is 28, creatinine is 1.09, LFTs are within normal limits, proBNP was within normal limits at 427. Patient was initially started on azithromycin and Rocephin however patient has multiple BAL and sputum cultures from previous admissions positive for pseudomonas aeru ginosa, most recent one showed resistance to Levaquin, imipenem, ciprofloxacin, and intermediate sensitivity to cefepime. On today's exam patient is resting quietly in bed, she is on 3 L of oxygen and a pulse ox of 97%, very bronchospastic and congested, but afebrile, vital signs are stable. No he moptysis, no complaints of chest pain. No altered mentation. The patient is seen today 10/25/2019 in follow-up on the selective care unit. She is currently resting comfortably in bed. Awake and alert in no acute distress. She also was some dyspnea on minimal exertion. Still some cough and congestion. Maintaining good O2 saturations in the high 90s on 3 L/m per nasal cannula. She's been afebrile. We'll culture reveals no growth to date. Sputum culture revealing no growth to date. White count 10.7. Hemoglobin 9.2. INR 3.1. Sodium 135. Potassium 4.8. Creatinine 1.26. She is currently on meropenem. She remains on DuoNeb inhalations, Pulmicort and Perforomist inhalations, Singulair. The patient is seen today 10/26/2019 in follow-up on the selective care unit. She is currently sitting up in bed. Awake and alert in no acute distress. Still dyspneic with minimal exertion. Still with a dry nonproductive cough. Still with some chest tightness and wheezing. Maintaining good O2 saturations on 3 L/m nasal cannula. She's afebrile. Hemodynamically stable. Blood culture reveals no growth to date. Sputum culture reveals no growth. Blood glucose 165. Continued on bronchodilators, meropenem. Reevaluated today on 10/27/19, patient is about the same, feeling a bit better but continues to cough and wheeze. Maintaining adequate O2 saturation on 3 L nasal cannula, she is afebrile, hemodynamically stable. Sputum is showing gram- negative bacilli, final culture is pending. Patient remains on Merrem WBC count is 7.1 hemoglobin is 9.4, electrolytes are normal BUN is 55 creatinine is 1.33 Objective - Vital Signs Vital signs: Vital Signs Temp 96.7 F L 10/27/19 09:03 Pulse 88 10/27/19 11:46 Resp 20 10/27/19 09:03 BP 150/76 10/27/19 09:03 Pulse Ox 96 10/27/19 09:03 Intake & Output 10/26/19 10/27/19 10/27/19 18:59 06:59 18:59 Intake Total 600 240 340 Balance 600 240 340 Weight 95 kg Intake: Oral 600 240 340 Other: # Voids 1 1 1 # Bowel Movements 1 - Exam GENERAL EXAM: Alert, active, pleasant 74-year-old female patient, on 3 L nasal cannula, comfortable in no apparent distress. HEENT: PERRLA, EOMI, no neck masses, no JVD, no stridor. CHEST: No chest wall deformity. LUNGS: Equal air entry with bilateral end expiratory wheeze, diminished CVS: S1 and S2 normal with no audible murmur, regular rhythm. ABDOMEN: No hepatosplenomegaly, normal bowel sounds, no guarding or rigidity. SPINE: No scoliosis or deformity SKIN: No rashes CENTRAL NERVOUS SYSTEM: No focal deficits, tone is normal in all 4 extremities. EXTREMITIES: No clubbing edema or cyanosis. Psychiatric: Normal mood affect and normal mental status examination. - Labs CBC & Chem 7: 10/27/19 05:39 10/27/19 05:39 Labs: Abnormal Lab Results - Last 24 Hours (Table) 10/26/19 10/26/19 10/27/19 Range/Units 16:51 20:24 05:39 RBC 3.59 L (3.80-5.40) m/uL Hgb 9.4 L (11.4-16.0) gm/dL Hct 30.9 L (34.0-46.0) % MCHC 30.3 L (31.0-37.0) g/dL RDW 16.2 H (11.5-15.5) % Lymphocytes # 0.5 L (1.0-4.8) k/uL Sodium (137-145) mmol/L Potassium (3.5-5.1) mmol/L BUN (7-17) mg/dL Creatinine (0.52-1.04) mg/dL Glucose (74-99) mg/dL POC Glucose (mg/dL) 125 H 237 H (75-99) mg/dL Calcium (8.4-10.2) mg/dL 10/27/19 10/27/19 Range/Units 05:39 05:45 RBC (3.80-5.40) m/uL Hgb (11.4-16.0) gm/dL Hct (34.0-46.0) % MCHC (31.0-37.0) g/dL RDW (11.5-15.5) % Lymphocytes # (1.0-4.8) k/uL Sodium 134 L (137-145) mmol/L Potassium 5.4 H (3.5-5.1) mmol/L BUN 55 H (7-17) mg/dL Creatinine 1.33 H (0.52-1.04) mg/dL Glucose 347 H (74-99) mg/dL POC Glucose (mg/dL) 383 H (75-99) mg/dL Calcium 7.9 L (8.4-10.2) mg/dL Microbiology - Last 24 Hours (Table) 10/24/19 01:09 Blood Culture - Preliminary Blood No Growth after 72 hours 09/02/20 15:44 Gram Stain - Preliminary Sputum Sputum Culture - Preliminary Gram Neg Bacilli Assessment and Plan Assessment: Impression: Acute on chronic hypoxic respiratory failure Acute exacerbation of severe COPD. Chronic hypoxic respiratory failure secondary to advanced COPD. Patient is on home O2 at 2 L nasal cannula. Recurrent pseudomonal pulmonary infections, final culture on the sputum is jocelyne alcaraz. Paroxysmal atrial fibrillation. Type 2 diabetes. Degenerative joint disease Hypothyroidism Chronic kidney disease stage II. Recommendation: Continue present course of treatment including bronchodilators, antibiotics, steroids, Patient is not quite ready for discharge planning. Based on the final sputum culture, antibiotics will be adjusted accordingly, and could possibly decide on outpatient treatment of her infection depending on the final culture and sensitivity. We'll continue to follow Time with Patient: Less than 30
[2019-10-27 11:59] LABS: Glucose,Whole Blood 398 mg/dL (75-99)
[2019-10-27] MEDS: MEROPENEM 1 GM in SODIUM CHLORIDE 0.9% 100 ML IVPB SCH ×2 (12:40→23:10)
[2019-10-27] MEDS: SODIUM CHLORIDE 0.9% 1,000 ML IV SCH ×2 (13:20→23:09)
[2019-10-27] MEDS ORDERED: INSULIN DETEMIR (LEVEMIR) 100 UNIT/ML SYR SQ ONE (13:30)
[2019-10-27] MEDS: guaiFENesin 600 MG TABLET.ER PO PRN (15:09)
[2019-10-27 17:12] LABS: Glucose,Whole Blood 303 mg/dL (75-99)
[2019-10-27] MEDS ORDERED: INSULIN ASPART (NovoLOG) 100 UNIT/ML VIAL SQ ONE (17:31)
--- NOTE | 2019-10-27 17:45 | P.PN ---
Subjective Progress Note Date: 10/27/19 Principal diagnosis: Acute exacerbation COPD Pneumonia Acute exacerbation CHF 74-year-old patient of Dr. Medrano, who is well-known to our practice from previous admissions for complications related to advanced COPD/chronic bronchial asthma, moderately persistent on home oxygen at 2 L, previous history of pseudomonal pulmonary infections, patient follows with Dr. Mendiola in the office. Other medical history includes paroxysmal A. fib on Coumadin, CHF, unspecified, diabetes mellitus type 2, GERD/reflux, hypertension, hypothyroidism. Patient presented to the hospital on 10/23/2019 with complaints of shortness of breath, cough, wheezing, her cough is minimally productive. Denied any fever, denied any chills, no nausea vomiting, no complaints of chest pain, reports fatigue and decreased appetite. No increased swelling in her lower extremities. Chest x-ray shows increasing interstitial pulmonary infiltrates in addition to chronic interstitial changes present on previous chest x-rays, possibility of pulmonary fibrosis. 10/26/2019 Patient is seen in follow-up on the selective care unit. She is currently sitting up in bed. Awake and alert in no acute distress. Still dyspneic with minimal exertion. Still with a dry nonproductive cough. Still with some chest tightness and wheezing. Maintaining good O2 saturations on 3 L/m nasal cannula. She's afebrile. Hemodynamically stable. Blood culture reveals no growth to date. Sputum culture reveals no growth. Blood glucose 165. Continued on bronchodilators, meropenem. 10/27/2019 patient is seen at bedside for follow-up, feeling a bit better but continues to cough and wheeze. Maintaining adequate O2 saturation on 3 L nasal cannula, she is afebrile, hemodynamically stable. Sputum is showing gram-negative bacilli, final culture is pending. Patient remains on Merrem WBC count is 7.1 hemoglobin is 9.4, electrolytes are normal BUN is 55 creatinine is 1.33 which is slightly worsened from 46/1.26 yesterday; we will start patient on slow IV fluid hyd ration with normal saline and hold Lasix and losartan; monitored in function and electrolytes; monitor strict GERALD's and daily weights Possible discharge in next 24-48 hours if remains stable Objective - Vital Signs Vital signs: Vital Signs Temp 96.7 F L 10/27/19 09:03 Pulse 92 10/27/19 09:03 Resp 20 10/27/19 09:03 BP 150/76 10/27/19 09:03 Pulse Ox 96 10/27/19 09:03 Intake & Output 10/26/19 10/27/19 10/27/19 18:59 06:59 18:59 Intake Total 600 240 340 Balance 600 240 340 Weight 95 kg Intake: Oral 600 240 340 Other: # Voids 1 1 1 # Bowel Movements 1 - Exam PHYSICAL EXAMINATION: GENERAL: The patient is alert and oriented x3, not in any acute distress. Well developed, well nourished. HEENT: Pupils are round and equally reacting to light. EOMI. No scleral icterus. No conjunctival pallor. Normocephalic, atraumatic. No pharyngeal erythema. No thyromegaly. CARDIOVASCULAR: S1 and S2 present. No murmurs, rubs, or gallops. PULMONARY: Chest is clear to auscultation, no wheezing or crackles. ABDOMEN: Soft, nontender, nondistended, normoactive bowel sounds. No palpable organomegaly. MUSCULOSKELETAL: No joint swelling or deformity. EXTREMITIES: No cyanosis, clubbing, or pedal edema. NEUROLOGICAL: Gross neurological examination did not reveal any focal deficits. SKIN: No rashes. - Labs CBC & Chem 7: 10/27/19 05:39 10/27/19 05:39 Labs: Abnormal Lab Results - Last 24 Hours (Table) 10/26/19 10/26/19 10/26/19 Range/Units 11:27 16:51 20:24 RBC (3.80-5.40) m/uL Hgb (11.4-16.0) gm/dL Hct (34.0-46.0) % MCHC (31.0-37.0) g/dL RDW (11.5-15.5) % Lymphocytes # (1.0-4.8) k/uL Sodium (137-145) mmol/L Potassium (3.5-5.1) mmol/L BUN (7-17) mg/dL Creatinine (0.52-1.04) mg/dL Glucose (74-99) mg/dL POC Glucose (mg/dL) 165 H 125 H 237 H (75-99) mg/dL Calcium (8.4-10.2) mg/dL 10/27/19 10/27/19 10/27/19 Range/Units 05:39 05:39 05:45 RBC 3.59 L (3.80-5.40) m/uL Hgb 9.4 L (11.4-16.0) gm/dL Hct 30.9 L (34.0-46.0) % MCHC 30.3 L (31.0-37.0) g/dL RDW 16.2 H (11.5-15.5) % Lymphocytes # 0.5 L (1.0-4.8) k/uL Sodium 134 L (137-145) mmol/L Potassium 5.4 H (3.5-5.1) mmol/L BUN 55 H (7-17) mg/dL Creatinine 1.33 H (0.52-1.04) mg/dL Glucose 347 H (74-99) mg/dL POC Glucose (mg/dL) 383 H (75-99) mg/dL Calcium 7.9 L (8.4-10.2) mg/dL Microbiology - Last 24 Hours (Table) 10/24/19 01:09 Blood Culture - Preliminary Blood No Growth after 72 hours 10/24/19 15:44 Gram Stain - Preliminary Sputum Sputum Culture - Preliminary Gram Neg Bacilli Assessment and Plan Assessment: Acute COPD exacerbation with tracheobronchitis with recent BAL fluid culture showing Pseudomonas. Chronic hypoxic respiratory failure on home oxygen Pulmonary fibrosis with chronic interstitial lung changes Hyperglycemia with uncontrolled diabetes type 2 Paroxysmal atrial fibrillation on anticoagulation with Eliquis Hypertension Hypothyroidism Osteoarthritis DVT prophylaxis patient is already on therapeutic dose of Coumadin. Plan: Patient be continued on duo nebs and Pulmicort was added. Patient was initially given ceftriaxone and azithromycin. Currently patient is on meropenem as per recent BAL/sputum culture report sensitivity. Repeat sputum culture was sent. no growth sofar. Pulmonary is following. Follow-up culture reports. Continue with home medications and further recommendations based on clinical course. Prognosis guarded.
[2019-10-27 20:02] LABS: Glucose,Whole Blood 266 mg/dL (75-99)
[2019-10-27] MEDS: WARFARIN 5 MG TAB PO SCH (20:19)
[2019-10-27] MEDS: MONTELUKAST 10 MG TAB PO SCH (20:19)
[2019-10-28 06:14] LABS: Glucose,Whole Blood 219 mg/dL (75-99)
[2019-10-28] MEDS: INSULIN DETEMIR (LEVEMIR) 100 UNIT/ML SYR SQ SCH (06:37)
[2019-10-28] MEDS: PANTOPRAZOLE 40 MG TABLET PO SCH (06:37)
[2019-10-28] MEDS: LEVOTHYROXINE 50 MCG TAB PO SCH (06:37)
[2019-10-28] MEDS: INSULIN ASPART (NovoLOG) 100 UNIT/ML VIAL SQ SCH ×4 (06:38→21:52)
[2019-10-28 07:10] LABS: Anisocytosis Slight; Basophils % (A) 0 %; Eosinophils % (A) 0 %; HCT 28.4 % (34.0-46.0); HGB 8.9 gm/dL (11.4-16.0); Hypochromasia Slight; Lymphocytes # (A) 0.5 k/uL (1.0-4.8); Lymphocytes % (A) 6 %; MCH 26.2 pg (25.0-35.0); MCHC 31.2 g/dL (31.0-37.0); Mean Platelet Volume 7.4; Monocytes # (A) 0.3 k/uL (0-1.0); Monocytes % (A) 3 %; Neutrophils # (A) 7.7 k/uL (1.3-7.7); Neutrophils % (A) 90 %; Platelet Count 212 k/uL (150-450); RBC 3.37 m/uL (3.80-5.40); RDW 16.4 % (11.5-15.5); WBC 8.6 k/uL (3.8-10.6)
[2019-10-28 07:25] LABS: Calcium 8.4 mg/dL (8.4-10.2); Potassium 5.1 mmol/L (3.5-5.1)
[2019-10-28] MEDS: POTASSIUM CHLORIDE ER 20 MEQ TAB.ER PO SCH ×2 (07:45→21:52)
[2019-10-28] MEDS: BUDESONIDE 1 MG/2 ML NEBU INHALATION SCH ×2 (09:36→20:27)
[2019-10-28] MEDS: FORMOTEROL FUMARATE 20 MCG/2 ML NEBU INHALATION SCH ×2 (09:36→20:27)
[2019-10-28] MEDS: methylPREDNISolone SOD SUCCI 40 MG/ML 1 ML VIAL IV SCH ×3 (10:14→23:40)
[2019-10-28] MEDS: ATORVASTATIN 10 MG TAB PO SCH (10:15)
[2019-10-28] MEDS: FERROUS SULFATE 325 MG TAB PO SCH (10:15)
[2019-10-28] MEDS: LORATADINE 10 MG TAB PO SCH (10:15)
[2019-10-28] MEDS: DILTIAZEM CD 180 MG CAP.ER.24H PO SCH (10:15)
[2019-10-28] MEDS: ALPRAZolam 0.5 MG TAB PO SCH ×3 (10:15→23:40)
[2019-10-28] MEDS: CITALOPRAM HYDROBROMIDE 20 MG TAB PO SCH (10:15)
[2019-10-28 11:31] LABS: Glucose,Whole Blood 137 mg/dL (75-99)
[2019-10-28] MEDS: IPRATROPIUM-ALBUTEROL 3 ML NEB INHALATION PRN ×3 (12:25→20:27)
[2019-10-28] MEDS: MEROPENEM 1 GM in SODIUM CHLORIDE 0.9% 100 ML IVPB SCH ×2 (12:34→23:40)
[2019-10-28 16:48] LABS: Glucose,Whole Blood 298 mg/dL (75-99)
--- NOTE | 2019-10-28 16:56 | P.PN ---
Subjective Progress Note Date: 10/28/19 Principal diagnosis: Acute exacerbation COPD Pneumonia Acute exacerbation CHF 74-year-old patient of Dr. Medrano, who is well-known to our practice from previous admissions for complications related to advanced COPD/chronic bronchial asthma, moderately persistent on home oxygen at 2 L, previous history of pseudomonal pulmonary infections, patient follows with Dr. Mendiola in the office. Other medical history includes paroxysmal A. fib on Coumadin, CHF, unspecified, diabetes mellitus type 2, GERD/reflux, hypertension, hypothyroidism. Patient presented to the hospital on 10/23/2019 with complaints of shortness of breath, cough, wheezing, her cough is minimally productive. Denied any fever, denied any chills, no nausea vomiting, no complaints of chest pain, reports fatigue and decreased appetite. No increased swelling in her lower extremities. Chest x-ray shows increasing interstitial pulmonary infiltrates in addition to chronic interstitial changes present on previous chest x-rays, possibility of pulmonary fibrosis. 10/26/2019 Patient is seen in follow-up on the selective care unit. She is currently sitting up in bed. Awake and alert in no acute distress. Still dyspneic with minimal exertion. Still with a dry nonproductive cough. Still with some chest tightness and wheezing. Maintaining good O2 saturations on 3 L/m nasal cannula. She's afebrile. Hemodynamically stable. Blood culture reveals no growth to date. Sputum culture reveals no growth. Blood glucose 165. Continued on bronchodilators, meropenem. 10/27/2019 patient is seen at bedside for follow-up, feeling a bit better but continues to cough and wheeze. Maintaining adequate O2 saturation on 3 L nasal cannula, she is afebrile, hemodynamically stable. Sputum is showing gram-negative bacilli, final culture is pending. Patient remains on Merrem WBC count is 7.1 hemoglobin is 9.4, electrolytes are normal BUN is 55 creatinine is 1.33 which is slightly worsened from 46/1.26 yesterday; we will start patient on slow IV fluid hyd ration with normal saline and hold Lasix and losartan; monitored in function and electrolytes; monitor strict GERALD's and daily weights Possible discharge in next 24-48 hours if remains stable 10/28/2019 Patient is seen and evaluated in follow-up at bedside; continues to complain of difficulty breathing with minimal activity but reports marked improvement from admission; remains on O2 3 L per nasal cannula Vital signs are reviewed and are stable; sputum culture is positive for gram- negative bacilli with final culture and sensitivity still pending; pulmonary is following patient and recommending to continue with current dose of Merrem Lab review shows improvement in renal function with B UN/creatinine of 52/1.13; we will restart losartan but continue to hold Lasix; we will DC IV fluids Discharge plan patient is cleared by pulmonary Objective - Vital Signs Vital signs: Vital Signs Temp 97.5 F L 10/28/19 03:24 Pulse 91 10/28/19 03:24 Resp 20 10/28/19 03:24 BP 134/59 10/28/19 03:24 Pulse Ox 99 10/28/19 03:24 Intake & Output 10/27/19 10/28/19 10/28/19 18:59 06:59 18:59 Intake Total 565 240 Balance 565 240 Weight 108 kg Intake: Oral 565 240 Other: Voiding Method Toilet Toilet # Voids 1 1 # Bowel Movements 1 - Exam PHYSICAL EXAMINATION: GENERAL: The patient is alert and oriented x3, not in any acute distress. Well developed, well nourished. HEENT: Pupils are round and equally reacting to light. EOMI. No scleral icterus. No conjunctival pallor. Normocephalic, atraumatic. No pharyngeal erythema. No thyromegaly. CARDIOVASCULAR: S1 and S2 present. No murmurs, rubs, or gallops. PULMONARY: Chest is clear to auscultation, no wheezing or crackles. ABDOMEN: Soft, nontender, nondistended, normoactive bowel sounds. No palpable organomegaly. MUSCULOSKELETAL: No joint swelling or deformity. EXTREMITIES: No cyanosis, clubbing, or pedal edema. NEUROLOGICAL: Gross neurological examination did not reveal any focal deficits. SKIN: No rashes. - Labs CBC & Chem 7: 10/28/19 06:20 10/28/19 06:20 Labs: Abnormal Lab Results - Last 24 Hours (Table) 10/27/19 10/27/19 10/27/19 Range/Units 11:58 17:10 20:00 RBC (3.80-5.40) m/uL Hgb (11.4-16.0) gm/dL Hct (34.0-46.0) % RDW (11.5-15.5) % Lymphocytes # (1.0-4.8) k/uL Sodium (137-145) mmol/L BUN (7-17) mg/dL Creatinine (0.52-1.04) mg/dL Glucose (74-99) mg/dL POC Glucose (mg/dL) 398 H 303 H 266 H (75-99) mg/dL 10/28/19 10/28/19 10/28/19 Range/Units 06:12 06:20 06:20 RBC 3.37 L (3.80-5.40) m/uL Hgb 8.9 L (11.4-16.0) gm/dL Hct 28.4 L (34.0-46.0) % RDW 16.4 H (11.5-15.5) % Lymphocytes # 0.5 L (1.0-4.8) k/uL Sodium 133 L (137-145) mmol/L BUN 52 H (7-17) mg/dL Creatinine 1.13 H (0.52-1.04) mg/dL Glucose 197 H (74-99) mg/dL POC Glucose (mg/dL) 219 H (75-99) mg/dL Microbiology - Last 24 Hours (Table) 10/24/19 01:09 Blood Culture - Preliminary Blood No Growth after 96 hours Assessment and Plan Assessment: Acute COPD exacerbation with tracheobronchitis with recent BAL fluid culture showing Pseudomonas. Chronic hypoxic respiratory failure on home oxygen Pulmonary fibrosis with chronic interstitial lung changes Hyperglycemia with uncontrolled diabetes type 2 Paroxysmal atrial fibrillation on anticoagulation with Eliquis Hypertension Hypothyroidism Osteoarthritis DVT prophylaxis patient is already on therapeutic dose of Coumadin. Plan: Patient be continued on duo nebs and Pulmicort was added. Patient was initially given ceftriaxone and azithromycin. Currently patient is on meropenem as per recent BAL/sputum culture report sensitivity. Repeat sputum culture was sent. no growth sofar. Pulmonary is following. Follow-up culture reports. Continue with home medications and further recommendations based on clinical course. Prognosis guarded.
[2019-10-28] MEDS ORDERED: INSULN ASP PRT/INSULIN ASPART 100 UNIT/ML 10 ML VIAL SQ SCH (17:30)
[2019-10-28] MEDS: INSULIN REGULAR 100 UNIT/ML VIAL SQ SCH (17:56)
[2019-10-28 20:08] LABS: Glucose,Whole Blood 313 mg/dL (75-99)
[2019-10-28] MEDS: MONTELUKAST 10 MG TAB PO SCH (21:52)
[2019-10-28] MEDS: WARFARIN 5 MG TAB PO SCH (21:52)
[2019-10-29 06:19] LABS: Glucose,Whole Blood 200 mg/dL (75-99)
[2019-10-29 06:57] LABS: INR 1.7 (<1.2); Prothrombin Time 16.8 sec (9.0-12.0)
[2019-10-29] MEDS: PANTOPRAZOLE 40 MG TABLET PO SCH (07:01)
[2019-10-29] MEDS: LEVOTHYROXINE 50 MCG TAB PO SCH (07:01)
[2019-10-29] MEDS: INSULIN DETEMIR (LEVEMIR) 100 UNIT/ML SYR SQ SCH (07:01)
[2019-10-29] MEDS: INSULIN REGULAR 100 UNIT/ML VIAL SQ SCH ×3 (07:02→17:26)
[2019-10-29] MEDS: INSULIN ASPART (NovoLOG) 100 UNIT/ML VIAL SQ SCH ×4 (07:02→22:19)
[2019-10-29] MEDS: BUDESONIDE 1 MG/2 ML NEBU INHALATION SCH ×2 (07:16→19:18)
[2019-10-29] MEDS: FORMOTEROL FUMARATE 20 MCG/2 ML NEBU INHALATION SCH ×2 (07:16→19:18)
[2019-10-29] MEDS: IPRATROPIUM-ALBUTEROL 3 ML NEB INHALATION PRN ×4 (07:16→19:18)
[2019-10-29] MEDS: POTASSIUM CHLORIDE ER 20 MEQ TAB.ER PO SCH ×2 (08:39→22:19)
[2019-10-29] MEDS: ALPRAZolam 0.5 MG TAB PO SCH ×3 (08:39→22:19)
[2019-10-29] MEDS: methylPREDNISolone SOD SUCCI 40 MG/ML 1 ML VIAL IV SCH ×3 (08:39→23:37)
[2019-10-29] MEDS: ATORVASTATIN 10 MG TAB PO SCH (08:40)
[2019-10-29] MEDS: traMADol 50 MG TAB PO PRN (08:40)
[2019-10-29] MEDS: CITALOPRAM HYDROBROMIDE 20 MG TAB PO SCH (08:40)
[2019-10-29] MEDS: LORATADINE 10 MG TAB PO SCH (08:40)
[2019-10-29] MEDS: FERROUS SULFATE 325 MG TAB PO SCH (08:40)
[2019-10-29] MEDS: LOSARTAN 25 MG TAB PO SCH (08:40)
[2019-10-29] MEDS: DILTIAZEM CD 180 MG CAP.ER.24H PO SCH (08:40)
[2019-10-29] MEDS: guaiFENesin 600 MG TABLET.ER PO PRN (08:40)
--- NOTE | 2019-10-29 10:21 | P.PN ---
Subjective Progress Note Date: 10/29/19 74-year-old patient of Dr. Medrano, who is well-known to our practice from previous admissions for complications related to advanced COPD/chronic bronchial asthma, moderately persistent on home oxygen at 2 L, previous history of pseudomonal pulmonary infections, patient follows with Dr. Mendiola in the off ice. Other medical history includes paroxysmal A. fib on Coumadin, CHF, unspecified, diabetes mellitus type 2, GERD/reflux, hypertension, hypothyroidism. Patient presented to the hospital on 10/23/2019 with complaints of shortness of breath, cough, wheezing, her cough is minimally productive. Den ied any fever, denied any chills, no nausea vomiting, no complaints of chest pain, reports fatigue and decreased appetite. No increased swelling in her lower extremities. Chest x-ray shows increasing interstitial pulmonary infiltrates in addition to chronic interstitial changes present on previous chest x-rays, possibility of pulmonary fibrosis. White blood cell count was 7.4, hemoglobin is 9.8, INR was 3.0, sodium is 135, potassium is 4.8, CO2 31, BUN is 28, creatinine is 1.09, LFTs are within normal limits, proBNP was within normal limits at 427. Patient was initially started on azithromycin and Rocephin however patient has multiple BAL and sputum cultures from previous admissions positive for pseudomonas aeruginosa, most recent one showed resistance to Levaquin, imipenem, ciprofloxacin, and intermediate sensitivity to cefepime. On today's exam patient is resting quietly in bed, she is on 3 L of oxygen and a pulse ox of 97%, very bronchospastic and congested, but afebrile, vital signs are stable. No hemoptysis, no complaints of chest pain. No altered mentation. The patient is seen today 10/25/2019 in follow-up on the selective care unit. She is currently resting comfortably in bed. Awake and alert in no acute distress. She also was some dyspnea on minimal exertion. Still some cough and congestion. Maintaining good O2 saturations in the high 90s on 3 L/m per nasal cannula. She's been afebrile. We'll culture reveals no growth to date. Sputum culture revealing no growth to date. White count 10.7. Hemoglobin 9.2. INR 3.1. Sodium 135. Potassium 4.8. Creatinine 1.26. She is currently on meropenem. She remains on DuoNeb inhalations, Pulmicort and Perforomist inhalations, Singulair. The patient is seen today 10/26/2019 in follow-up on the selective care unit. She is currently sitting up in bed. Awake and alert in no acute distress. Still dyspneic with minimal exertion. Still with a dry nonproductive cough. Still with some chest tightness and wheezing. Maintaining good O2 saturations on 3 L/m nasal cannula. She's afebrile. Hemodynamically stable. Blood culture reveals no growth to date. Sputum culture reveals no growth. Blood glucose 165. Continued on bronchodilators, meropenem. The patient is seen today 10/29/2019 in follow-up on the selective care unit. She is currently sitting up in a chair at the bedside. Continues with a loose productive cough. Sputum culture positive for pseudomonas aeruginosa again. She is continued on meropenem. Maintaining O2 saturations in the upper 90s on 2 L/m per nasal cannula. She's been afebrile. Hemodynamically stable. INR 1.7. She remains on DuoNeb inhalations, Pulmicort and Perforomist inhalations, IV Solu-Medrol, Singulair. Objective - Vital Signs Vital signs: Vital Signs Temp 98.3 F 10/29/19 08:00 Pulse 82 10/29/19 08:00 Resp 20 10/29/19 08:00 BP 163/72 10/29/19 08:00 Pulse Ox 99 10/29/19 08:00 Intake & Output 10/28/19 10/29/19 10/29/19 18:59 06:59 18:59 Intake Total 702 120 Balance 702 120 Weight 109.1 kg Intake: Oral 702 120 Other: Voiding Method Toilet Toilet # Voids 1 1 1 # Bowel Movements 1 - Exam GENERAL EXAM: Alert, active, pleasant 74-year-old female patient, on 2 L nasal cannula, comfortable in no apparent distress. HEAD: Normocephalic. EYES: Normal reaction of pupils, equal size. NOSE: Clear with pink turbinates. THROAT: No erythema or exudates. NECK: No masses, no JVD. CHEST: No chest wall deformity. LUNGS: Equal air entry with bilateral end expiratory wheeze, scattered rhonchi, diminished CVS: S1 and S2 normal with no audible murmur, regular rhythm. ABDOMEN: No hepatosplenomegaly, normal bowel sounds, no guarding or rigidity. SPINE: No scoliosis or deformity SKIN: No rashes CENTRAL NERVOUS SYSTEM: No focal deficits, tone is normal in all 4 extremities. EXTREMITIES: There is no peripheral edema. No clubbing, no cyanosis. Peripheral pulses are intact. - Labs CBC & Chem 7: 10/28/19 06:20 10/28/19 06:20 Labs: Abnormal Lab Results - Last 24 Hours (Table) 10/28/19 10/28/19 10/28/19 Range/Units 11:30 16:47 20:07 PT (9.0-12.0) sec INR (<1.2) POC Glucose (mg/dL) 137 H 298 H 313 H (75-99) mg/dL 10/29/19 10/29/19 Range/Units 06:01 06:18 PT 16.8 H (9.0-12.0) sec INR 1.7 H (<1.2) POC Glucose (mg/dL) 200 H (75-99) mg/dL Microbiology - Last 24 Hours (Table) 10/24/19 01:09 Blood Culture - Preliminary Blood No Growth after 120 hours 10/24/19 15:44 Gram Stain - Final Sputum Sputum Culture - Final Pseudomonas aeruginosa Assessment and Plan Assessment: #1. Acute exacerbation of COPD/chronic bronchial asthma, moderately persistent, with tracheobronchitis possibly related to Pseudomonas. Cultures this admission did reveal pseudomonas aeruginosa again, currently on meropenem. Chest x-ray showing diffuse interstitial infiltrates slightly increased compared last chest x-ray, on the background of chronic interstitial changes, possibly pulmonary f ibrosis. #2. Chronic hypoxic respiratory failure related to advanced COPD, on 2 L of oxygen #3. 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 Paroxysmal atrial fibrillation on Coumadin currently in sinus mechanism, INR therapeutic at 3.1 #5. Diabetes mellitus type 2 #6. Chronic kidney disease, stage II #7. Hypertension #8. Osteoarthritis #9. Hypothyroidism #10. Chronic interstitial changes present on the chest x-ray likely related to underlying pulmonary fibrosis/scarring from previous pulmonary infections Plan: The patient was seen and evaluated by Dr. Chow Sputum positive for pseudomonas Continued on meropenem Still not quite back to her baseline May consider bronchoscopy if no significant improvement We will continue to follow and make further recommendations based on her clinical status. I, the cosigning physician, performed a history & physical examination of the patient. Lungs sounds bilateral end expiratory wheeze, few scattered rhonchi diminished. Maintaining good O2 saturations in the 90s on 2 L/m per nasal cannula. I discussed the assessment and plan of care with my nurse practitioner, Su Arias. I attest to the above note as dictated by her.
--- NOTE | 2019-10-29 11:19 | XR ---
EXAMINATION TYPE: XR chest 1V portable DATE OF EXAM: 10/29/2019 Comparison: 10/24/2019 Clinical History: 74-year-old female pneumonia Findings: Heart mildly enlarged. Patchy peripheral and basilar opacities similar to 10/24/2019. Hyperinflation. Impression: 1. Similar mild cardiomegaly and suspected underlying COPD. 2. Patchy peripheral and basilar opacities similar to recent 10/24/2019 exam. Interstitial pneumonitis and atypical pneumonias are in the differential.
[2019-10-29 11:59] LABS: Glucose,Whole Blood 149 mg/dL (75-99)
--- NOTE | 2019-10-29 13:47 | P.PN ---
Subjective Progress Note Date: 10/29/19 Principal diagnosis: 10/29/2019 This is a 74-year-old female who was recently admitted for increasing shortness of breath, cough, wheezing and history of advanced chronic obstructive pulmonary disease with chronic bronchial asthma moderately persistent and is being closely monitored. Patient was recently admitted and was found to have pseudomonas aeruginosa in the sputum and follows with Dr. Mendiola in the outpatient setting. Patient's sputum cultures finalized during this admission with Pseudomonas aeruginosa and is currently maintained on IV meropenem. Pulmonary following closely as well. Patient is currently maintained on IV steroids along with breathing inhalational treatments and will continue at this time. Patient is normally on Lasix in the outpatient setting although this is currently being heldhis kidney functions were slightly elevated. Patient's INR today is 1.7 and patient remains on Coumadin. BNP was drawn today and is elevated at 1060. A 2- D echo was ordered and is currently pending.Chest x-ray today shows similar mild cardiomegaly and suspected underlying COPD with patchy peripheral and basilar opacities similar to recent exam along with interstitial pneumonia and atypical pneumonia possibly. Patient continues to have dyspnea and cough with minimal production. Pulmonary following and discussing possible bronchoscopy with BAL. Will repeat labs and monitor vital signs closely. Also discussed with the patient about increasing activity as tolerated. patient's blood sugars continued to be elevated and will continue to closely monitor his patient is maintained on pre-meal insulin along with sliding scale and long-acting insulin. Review of systems: Constitutional: No reports of fatigue, fever, or chills Cardiovascular: No reports of chest pain or palpitations Respiratory: reports shortness of breath and occasional cough with minimal phlegm production GI: No reports of nausea, vomiting, or diarrhea : No reports of dysuria or retention Neurovascular: No reports of weakness or numbness Active Medications Acetaminophen (Tylenol Tab) 650 mg PO Q6HR PRN PRN Reason: Fever and/ or Mild Pain Albuterol/Ipratropium (Duoneb 0.5 Mg-3 Mg/3 Ml Soln) 3 ml INHALATION RT-Q4H PRN PRN Reason: shortness of breath Last Admin: 10/29/19 10:54 Dose: 3 ml Documented by: Alprazolam (Xanax) 0.5 mg PO TID JS Last Admin: 10/29/19 08:39 Dose: 0.5 mg Documented by: Atorvastatin Calcium (Lipitor) 10 mg PO DAILY [facility] Last Admin: 10/29/19 08:40 Dose: 10 mg Documented by: Budesonide (Pulmicort) 1 mg INHALATION RT-BID [facility] Last Admin: 10/29/19 07:16 Dose: 1 mg Documented by: Citalopram Hydrobromide (Celexa) 40 mg PO DAILY [facility] Last Admin: 10/29/19 08:40 Dose: 40 mg Documented by: Diltiazem HCl (Cardizem Cd) 180 mg PO DAILY [facility] Last Admin: 10/29/19 08:40 Dose: 180 mg Documented by: Ferrous Sulfate (Feosol) 325 mg PO DAILY [facility] Last Admin: 10/29/19 08:40 Dose: 325 mg Documented by: Formoterol Fumarate (Perforomist) 20 mcg INHALATION RT-BID [facility] Last Admin: 10/29/19 07:16 Dose: 20 mcg Documented by: Guaifenesin (Mucinex) 600 mg PO Q12HR PRN PRN Reason: Cough Last Admin: 10/29/19 08:40 Dose: 600 mg Documented by: Meropenem 1 gm/ Sodium (Chloride) 100 mls @ 33.3 mls/hr IVPB Q12H [facility]; Protocol Last Admin: 10/28/19 23:40 Dose: 33.3 mls/hr Documented by: Insulin Aspart (Novolog) 0 unit SQ ACHS [facility]; Protocol Last Admin: 10/29/19 12:26 Dose: 2 unit Documented by: Insulin Detemir (Levemir) 40 unit SQ DAILY@0700 [facility] Last Admin: 10/29/19 07:01 Dose: 40 unit Documented by: Insulin Human Regular (Humulin R) 10 unit SQ AC-TID [facility] Last Admin: 10/29/19 12:24 Dose: 10 unit Documented by: Levothyroxine Sodium (Synthroid) 50 mcg PO DAILY@0630 [facility] Last Admin: 10/29/19 07:01 Dose: 50 mcg Documented by: Loratadine (Claritin) 10 mg PO DAILY [facility] Last Admin: 10/29/19 08:40 Dose: 10 mg Documented by: Losartan Potassium (Cozaar) 25 mg PO DAILY [facility] Last Admin: 10/29/19 08:40 Dose: 25 mg Documented by: Methylprednisolone Sodium Succinate (Solu-Medrol) 40 mg IV Q8HR [facility] Last Admin: 10/29/19 08:39 Dose: 40 mg Documented by: Miscellaneous Information (Pneumonia Protocol Utilized) 1 each PO ONCE PRN PRN Reason: Per Protocol Montelukast Sodium (Singulair) 10 mg PO [facility] Last Admin: 10/28/19 21:52 Dose: 10 mg Documented by: Non-Formulary Medication (Alendronate Sodium [Fosamax]) 70 mg PO [facility] Last Admin: 10/26/19 09:40 Dose: Not Given Documented by: Pantoprazole Sodium (Protonix) 40 mg PO AC-BRKFST [facility] Last Admin: 10/29/19 07:01 Dose: 40 mg Documented by: Potassium Chloride (K-Dur 20) 20 meq PO BID [facility] Last Admin: 10/29/19 08:39 Dose: 20 meq Documented by: Tramadol HCl (Ultram) 50 mg PO TID PRN PRN Reason: Pain Last Admin: 10/29/19 08:40 Dose: 50 mg Documented by: Warfarin Sodium (Coumadin) 5 mg PO [facility]; Protocol Last Admin: 10/28/19 21:52 Dose: 5 mg Documented by: Objective - Vital Signs Vital signs: Vital Signs Temp 97.9 F 10/29/19 11:52 Pulse 101 H 10/29/19 11:52 Resp 16 10/29/19 11:52 BP 157/100 10/29/19 11:52 Pulse Ox 95 10/29/19 11:52 Intake & Output 10/28/19 10/29/19 10/29/19 18:59 06:59 18:59 Intake Total 702 120 Balance 702 120 Weight 109.1 kg Intake: Oral 702 120 Other: Voiding Method Toilet Toilet # Voids 1 1 1 # Bowel Movements 1 - Exam GENERAL: The patient is alert and oriented x3, sitting up in the chair. Well developed, well nourished. temp is 98.3F, pulse is 82, respirations are 20, blood pressure is 163/72, oxygen saturation is 99% on 2 L via nasal cannula. HEENT: Pupils are round and equally reacting to light. EOMI. No scleral icterus. No conjunctival pallor. Normocephalic, atraumatic. No pharyngeal erythema. No thyromegaly. CARDIOVASCULAR: S1 and S2 present. No murmurs, rubs, or gallops. PULMONARY: diminished breath sounds bilaterally with a few scattered rhonchi noted. Mild expiratory wheezing noted on the left more so than the right. ABDOMEN: Soft, nontender, nondistended, normoactive bowel sounds. No palpable organomegaly. MUSCULOSKELETAL: No joint swelling or deformity. EXTREMITIES: No cyanosis, clubbing, or pedal edema. mild bilateral lower extremity edema noted. NEUROLOGICAL: Gross neurological examination did not reveal any focal deficits. SKIN: No rashes. - Labs CBC & Chem 7: 10/28/19 06:20 10/28/19 06:20 Labs: Abnormal Lab Results - Last 24 Hours (Table) 10/28/19 10/28/19 10/29/19 Range/Units 16:47 20:07 06:01 PT 16.8 H (9.0-12.0) sec INR 1.7 H (<1.2) POC Glucose (mg/dL) 298 H 313 H (75-99) mg/dL 10/29/19 10/29/19 Range/Units 06:18 11:51 PT (9.0-12.0) sec INR (<1.2) POC Glucose (mg/dL) 200 H 149 H (75-99) mg/dL Microbiology - Last 24 Hours (Table) 10/24/19 01:09 Blood Culture - Preliminary Blood No Growth after 120 hours 10/24/19 15:44 Gram Stain - Final Sputum Sputum Culture - Final Pseudomonas aeruginosa Assessment and Plan Assessment: Acute COPD exacerbation with tracheobronchitis with sputum cultures finalizing s howing Pseudomonas aeruginosa Chronic hypoxic respiratory failure on home oxygen Congestive heart failure, ejection fraction unknown Pulmonary fibrosis with chronic interstitial lung changes chronic kidney disease stage II Hyperglycemia with uncontrolled diabetes type 2 Paroxysmal atrial fibrillation on anticoagulation with Coumadin Hypertension Hypothyroidism Osteoarthritis Gastroesophageal reflux disease DVT prophylaxis GI prophylaxis recommendations and discussion: Recommend to continue current medications, management, and symptomatic treatment. Patient is currently maintained on IV antibiotics in the form of meropenem for sputum cultures finalizing pseudomonas aeruginosa. Patient is a lso maintained on IV steroids along with breathing inhalational treatments and will continue at this time. pulmonary following closely with discussion of possible bronchoscopy with BAL. BNP today was elevated and chest x-ray noted. Will order 2-D echo which is currently pending. Incentive spirometry also ordered. Instructed the patient to increase activity as tolerated. Due to multiple complex medical issues, prognosis is guarded. Further recommendations to follow.
[2019-10-29] MEDS: MEROPENEM 1 GM in SODIUM CHLORIDE 0.9% 100 ML IVPB SCH ×2 (14:34→23:37)
[2019-10-29 17:06] LABS: Glucose,Whole Blood 188 mg/dL (75-99)
[2019-10-29 20:04] LABS: Glucose,Whole Blood 160 mg/dL (75-99)
[2019-10-29] MEDS: MONTELUKAST 10 MG TAB PO SCH (22:19)
[2019-10-29] MEDS: WARFARIN 5 MG TAB PO SCH (22:19)
[2019-10-30 06:09] LABS: Glucose,Whole Blood 121 mg/dL (75-99)
[2019-10-30] MEDS: INSULIN DETEMIR (LEVEMIR) 100 UNIT/ML SYR SQ SCH (07:04)
[2019-10-30] MEDS: INSULIN REGULAR 100 UNIT/ML VIAL SQ SCH ×3 (07:05→16:48)
[2019-10-30] MEDS: PANTOPRAZOLE 40 MG TABLET PO SCH (07:05)
[2019-10-30] MEDS: LEVOTHYROXINE 50 MCG TAB PO SCH (07:05)
[2019-10-30] MEDS: INSULIN ASPART (NovoLOG) 100 UNIT/ML VIAL SQ SCH ×4 (07:32→22:34)
[2019-10-30] MEDS: IPRATROPIUM-ALBUTEROL 3 ML NEB INHALATION PRN ×4 (07:47→19:51)
[2019-10-30] MEDS: BUDESONIDE 1 MG/2 ML NEBU INHALATION SCH ×2 (07:47→19:51)
[2019-10-30] MEDS: FORMOTEROL FUMARATE 20 MCG/2 ML NEBU INHALATION SCH ×2 (07:47→19:52)
[2019-10-30 08:14] LABS: Anisocytosis Slight; Basophils % (A) 0 %; Eosinophils % (A) 1 %; HCT 31.2 % (34.0-46.0); HGB 9.4 gm/dL (11.4-16.0); Hypochromasia Slight; Lymphocytes # (A) 0.6 k/uL (1.0-4.8); Lymphocytes % (A) 6 %; MCH 25.8 pg (25.0-35.0); MCHC 30.2 g/dL (31.0-37.0); MCV 85.4 fL (80.0-100.0); Mean Platelet Volume 7.3; Monocytes # (A) 0.3 k/uL (0-1.0); Monocytes % (A) 4 %; Neutrophils # (A) 8.2 k/uL (1.3-7.7); Neutrophils % (A) 89 %; Platelet Count 291 k/uL (150-450); RBC 3.65 m/uL (3.80-5.40); WBC 9.2 k/uL (3.8-10.6)
[2019-10-30 08:22] LABS: Prothrombin Time 19.2 sec (9.0-12.0)
[2019-10-30 08:31] LABS: Calcium 8.9 mg/dL (8.4-10.2)
[2019-10-30 08:35] LABS: Potassium 5.7 mmol/L (3.5-5.1)
[2019-10-30] MEDS: ATORVASTATIN 10 MG TAB PO SCH (09:15)
[2019-10-30] MEDS: ALPRAZolam 0.5 MG TAB PO SCH ×3 (09:15→22:35)
[2019-10-30] MEDS: CITALOPRAM HYDROBROMIDE 20 MG TAB PO SCH (09:15)
[2019-10-30] MEDS: DILTIAZEM CD 180 MG CAP.ER.24H PO SCH (09:15)
[2019-10-30] MEDS: FERROUS SULFATE 325 MG TAB PO SCH (09:15)
[2019-10-30] MEDS: LORATADINE 10 MG TAB PO SCH (09:15)
[2019-10-30] MEDS: POTASSIUM CHLORIDE ER 20 MEQ TAB.ER PO SCH (09:15)
[2019-10-30] MEDS: LOSARTAN 25 MG TAB PO SCH (09:15)
[2019-10-30] MEDS: methylPREDNISolone SOD SUCCI 40 MG/ML 1 ML VIAL IV SCH ×3 (09:15→23:03)
[2019-10-30 10:50] VITALS: BMI 41.8
[2019-10-30 12:20] LABS: Glucose,Whole Blood 241 mg/dL (75-99)
[2019-10-30] MEDS: MEROPENEM 1 GM in SODIUM CHLORIDE 0.9% 100 ML IVPB SCH ×2 (12:30→23:03)
[2019-10-30] MEDS ORDERED: SODIUM POLYSTYRENE SULFONATE 15 GM/60 ML BOTTLE PO STA (12:44)
--- NOTE | 2019-10-30 13:01 | ECHOF ---
Referral Reason:CHF MEASUREMENTS -------- HEIGHT: 162.6 cm WEIGHT: 110.2 kg BP: 174/77 RVIDd: 3.8 cm (< 3.3) IVSd: 1.4 cm (0.6 - 1.1) LVIDd: 4.5 cm (3.9 - 5.3) LVPWd: 1.6 cm (0.6 - 1.1) IVSs: 1.7 cm LVIDs: 3.2 cm LVPWs: 2.1 cm LAESV Index (A-L): 25.20 ml/m Ao Diam: 2.6 cm (2.0 - 3.7) AV Cusp: 2.0 cm (1.5 - 2.6) MV EXCURSION: 15.228 mm (> 18.000) MV EF SLOPE: 81 mm/s (70 - 150) EPSS: 0.6 cm MV E Brendan: 1.36 m/s MV DecT: 137 ms MV A Brendan: 1.51 m/s MV E/A Ratio: 0.90 RAP: 5.00 mmHg RVSP: 57.00 mmHg FINDINGS -------- This was a technically difficult study with suboptimal views. The left ventricular size is normal. There is moderate concentric left ventricular hypertrophy. O verall left ventricular systolic function is normal with, an EF between 55 - 60 %. The right ventricle is mild to moderately enlarged. Normal LA size by volume 22+/-6 ml/m2. The right atrium was not well visualized. Lumason used Interatrial and interventricular septum intact. The aortic valve was not well visualized. There is no evidence of aortic regurgitation. There is no evidence of aortic stenosis. Mild mitral regurgitation is present. Moderate to severe tricuspid regurgitation present. There is moderate to severe pulmonary hypertens ion. The right ventricular systolic pressure, as measured by Doppler, is 57.00mmHg. There is no pulmonic regurgitation present. The aortic root size is normal. IVC Not well visulized. There is no pericardial effusion. CONCLUSIONS -------- 1. The left ventricular size is normal. 2. There is moderate concentric left ventricular hypertrophy. 3. Overall left ventricular systolic function is normal with, an EF between 55 - 60 %. 4. The right ventricle is mild to moderately enlarged. 5. Mild mitral regurgitation is present. 6. Moderate to severe tricuspid regurgitation present. 7. There is moderate to severe pulmonary hypertension. 8. The right ventricular systolic pressure, as measured by Doppler, is 57.00mmHg. CHIEF RESERV[employer] ENGINEERING: Citlalli Beatty RDCS
--- NOTE | 2019-10-30 13:49 | P.PN ---
Subjective Progress Note Date: 10/30/19 Principal diagnosis: 10/29/2019 This is a 74-year-old female who was recently admitted for increasing shortness of breath, cough, wheezing and history of advanced chronic obstructive pulmonary disease with chronic bronchial asthma moderately persistent and is being closely monitored. Patient was recently admitted and was found to have pseudomonas aeruginosa in the sputum and follows with Dr. Mendiola in the outpatient setting. Patient's sputum cultures finalized during this admission with Pseudomonas aeruginosa and is currently maintained on IV meropenem. Pulmonary following closely as well. Patient is currently maintained on IV steroids along with breathing inhalational treatments and will continue at this time. Patient is normally on Lasix in the outpatient setting although this is currently being heldhis kidney functions were slightly elevated. Patient's INR today is 1.7 and patient remains on Coumadin. BNP was drawn today and is elevated at 1060. A 2- D echo was ordered and is currently pending.Chest x-ray today shows similar mild cardiomegaly and suspected underlying COPD with patchy peripheral and basilar opacities similar to recent exam along with interstitial pneumonia and atypical pneumonia possibly. Patient continues to have dyspnea and cough with minimal production. Pulmonary following and discussing possible bronchoscopy with BAL. Will repeat labs and monitor vital signs closely. Also discussed with the patient about increasing activity as tolerated. patient's blood sugars continued to be elevated and will continue to closely monitor his patient is maintained on pre-meal insulin along with sliding scale and long-acting insulin. 10/30/2019 Patient is seen and examined follow-up continues to have dyspnea with exertion and a cough with minimal phlegm production. Pulmonary following closely. Patient is scheduled to undergo bronchoscopy with BAL in the morning. Patient underwent a 2-D echo showing moderate concentric left ventricular hypertrophy overall left ventricular systolic function is normal with an EF between 55 and 60%, mild mitral regurgitation along with moderate to severe tricuspid regurgitation present, and moderate to severe pulmonary hypertension. Patient will be resumed on her Lasix 40 mg daily and will repeat a.m. labs and continue to monitor closely. Patient is maintained on bronchodilators along with IV steroids and will continue at this time. Sputum cultures finalized showing Pseudomonas aeruginosa and is maintained on IV meropenem. Review of systems: Constitutional: No reports of fatigue, fever, or chills Cardiovascular: No reports of chest pain or palpitations Respiratory: reports shortness of breath and occasional cough with minimal phlegm production GI: No reports of nausea, vomiting, or diarrhea : No reports of dysuria or retention Neurovascular: No reports of weakness or numbness Objective - Vital Signs Vital signs: Vital Signs Temp 98.1 F 10/30/19 12:00 Pulse 82 10/30/19 12:00 Resp 20 10/30/19 12:00 BP 153/78 10/30/19 12:00 Pulse Ox 99 10/30/19 12:00 Intake & Output 10/29/19 10/30/19 10/30/19 18:59 06:59 18:59 Intake Total 600 240 Balance 600 240 Weight 110.6 kg 110.6 kg Intake: Oral 600 240 Other: Voiding Method Toilet # Voids 1 - Exam GENERAL: The patient is alert and oriented x3, sitting up in the chair. Well developed, well nourished. HEENT: Pupils are round and equally reacting to light. EOMI. No scleral icterus. No conjunctival pallor. Normocephalic, atraumatic. No pharyngeal erythema. No thyromegaly. CARDIOVASCULAR: S1 and S2 present. No murmurs, rubs, or gallops. PULMONARY: diminished breath sounds bilaterally with a few scattered rhonchi noted. Mild expiratory wheezing noted on the left more so than the right. ABDOMEN: Soft, nontender, nondistended, normoactive bowel sounds. No palpable organomegaly. MUSCULOSKELETAL: No joint swelling or deformity. EXTREMITIES: No cyanosis, clubbing, or pedal edema. mild bilateral lower extremity edema noted. NEUROLOGICAL: Gross neurological examination did not reveal any focal deficits. SKIN: No rashes. - Labs CBC & Chem 7: 10/30/19 07:41 10/30/19 07:41 Labs: Abnormal Lab Results - Last 24 Hours (Table) 10/29/19 10/29/19 10/30/19 Range/Units 16:46 20:03 06:08 RBC (3.80-5.40) m/uL Hgb (11.4-16.0) gm/dL Hct (34.0-46.0) % MCHC (31.0-37.0) g/dL RDW (11.5-15.5) % Neutrophils # (1.3-7.7) k/uL Lymphocytes # (1.0-4.8) k/uL PT (9.0-12.0) sec INR (<1.2) Potassium (3.5-5.1) mmol/L BUN (7-17) mg/dL Glucose (74-99) mg/dL POC Glucose (mg/dL) 188 H 160 H 121 H (75-99) mg/dL 10/30/19 10/30/19 10/30/19 Range/Units 07:41 07:41 07:41 RBC 3.65 L (3.80-5.40) m/uL Hgb 9.4 L (11.4-16.0) gm/dL Hct 31.2 L (34.0-46.0) % MCHC 30.2 L (31.0-37.0) g/dL RDW 17.0 H (11.5-15.5) % Neutrophils # 8.2 H (1.3-7.7) k/uL Lymphocytes # 0.6 L (1.0-4.8) k/uL PT 19.2 H (9.0-12.0) sec INR 2.0 H (<1.2) Potassium 5.7 H (3.5-5.1) mmol/L BUN 50 H (7-17) mg/dL Glucose 113 H (74-99) mg/dL POC Glucose (mg/dL) (75-99) mg/dL 10/30/19 Range/Units 12:18 RBC (3.80-5.40) m/uL Hgb (11.4-16.0) gm/dL Hct (34.0-46.0) % MCHC (31.0-37.0) g/dL RDW (11.5-15.5) % Neutrophils # (1.3-7.7) k/uL Lymphocytes # (1.0-4.8) k/uL PT (9.0-12.0) sec INR (<1.2) Potassium (3.5-5.1) mmol/L BUN (7-17) mg/dL Glucose (74-99) mg/dL POC Glucose (mg/dL) 241 H (75-99) mg/dL Microbiology - Last 24 Hours (Table) 10/24/19 01:09 Blood Culture - Final Blood No Growth after 144 hours Assessment and Plan Assessment: Acute COPD exacerbation with tracheobronchitis with sputum cultures finalizing showing Pseudomonas aeruginosa Chronic hypoxic respiratory failure on home oxygen Congestive heart failure, acute on chronic diastolic dysfunction, ejection fraction 55-60% Pulmonary fibrosis with chronic interstitial lung changes chronic kidney disease stage II Hyperglycemia with uncontrolled diabetes type 2 Paroxysmal atrial fibrillation on anticoagulation with Coumadin Hypertension Hypothyroidism Osteoarthritis Gastroesophageal reflux disease DVT prophylaxis GI prophylaxis Full code recommendations and discussion: Recommend to continue current medications, management, and symptomatic treatment. Patient is currently maintained on IV antibiotics in the form of meropenem for sputum cultures finalizing pseudomonas aeruginosa. Patient is also maintained on IV steroids along with breathing inhalational treatments and will continue at this time. pulmonary following closely and planning bronchoscopy with BAL tomorrow morning. discussed with the patient about continuing to use Incentive spirometry at least 10 times every hour while awake. Will resume oral Lasix dose. Instructed the patient to increase activity as tolerated. Due to multiple complex medical issues, prognosis is guarded. Further recommendations to follow.
--- NOTE | 2019-10-30 14:29 | P.PN ---
Subjective Progress Note Date: 10/30/19 Principal diagnosis: Acute exacerbation of COPD/chronic bronchial asthma, moderately persistent with tracheobronchitis related to Pseudomonas 74-year-old patient of Dr. Medrano, who is well-known to our practice from previous admissions for complications related to advanced COPD/chronic bronchial asthma, moderately persistent on home oxygen at 2 L, previous history of pseudomonal pulmonary infections, patient follows with Dr. Mendiola in the office. Other medical history includes paroxysmal A. fib on Coumadin, CHF, unspecified, diabetes mellitus type 2, GERD/reflux, hypertension, hypothyroidism. Patient presented to the hospital on 10/23/2019 with complaints of shortness of breath, cough, wheezing, her cough is minimally productive. Denied any fever, denied any chills, no nausea vomiting, no complaints of chest pain, reports fatigue and decreased appetite. No increased swelling in her lower extremities. Chest x-ray shows increasing interstitial pulmonary infiltr ates in addition to chronic interstitial changes present on previous chest x- rays, possibility of pulmonary fibrosis. White blood cell count was 7.4, hemoglobin is 9.8, INR was 3.0, sodium is 135, potassium is 4.8, CO2 31, BUN is 28, creatinine is 1.09, LFTs are within normal limits, proBNP was within normal limits at 427. Patient was initially started on azithromycin and Rocephin however patient has multiple BAL and sputum cultures from previous admissions positive for pseudomonas aeruginosa, most recent one showed resistance to Levaquin, imipenem, ciprofloxacin, and intermediate sensitivity to cefepime. On today's exam patient is resting quietly in bed, she is on 3 L of oxygen and a pulse ox of 97%, very bronchospastic and congested, but afebrile, vital signs are stable. No hemoptysis, no complaints of chest pain. No altered mentation. The patient is seen today 10/25/2019 in follow-up on the selective care unit. She is currently resting comfortably in bed. Awake and alert in no acute distress. She also was some dyspnea on minimal exertion. Still some cough and congestion. Maintaining good O2 saturations in the high 90s on 3 L/m per nasal cannula. She's been afebrile. We'll culture reveals no growth to date. Sputum culture revealing no growth to date. White count 10.7. Hemoglobin 9.2. INR 3.1. Sodium 135. Potassium 4.8. Creatinine 1.26. She is currently on meropenem. She remains on DuoNeb inhalations, Pulmicort and Perforomist inhalations, Singulair. The patient is seen today 10/26/2019 in follow-up on the selective care unit. She is currently sitting up in bed. Awake and alert in no acute distress. Still dyspneic with minimal exertion. Still with a dry nonproductive cough. Still with some chest tightness and wheezing. Maintaining good O2 saturations on 3 L/m nasal cannula. She's afebrile. Hemodynamically stable. Blood culture reveals no growth to date. Sputum culture reveals no growth. Blood glucose 165. Continued on bronchodilators, meropenem. The patient is seen today 10/29/2019 in follow-up on the selective care unit. She is currently sitting up in a chair at the bedside. Continues with a loose productive cough. Sputum culture positive for pseudomonas aeruginosa again. She is continued on meropenem. Maintaining O2 saturations in the upper 90s on 2 L/m per nasal cannula. She's been afebrile. Hemodynamically stable. INR 1.7. She remains on DuoNeb inhalations, Pulmicort and Perforomist inhalations, IV Solu-Medrol, Singulair. On 10/30/2019 patient seen in follow-up on selective care unit, she is awake and alert, in no acute distress. She is still having coughing spells, her anterior chest is starting to hurt from all the coughing, and possible muscle strain. Not able to bring up much sputum. Remains on 2 L of oxygen a pulse ox of 99%, hemodynamically stable, she's been afebrile, or sputum culture was positive for pseudomonas aeruginosa which showed resistance to ciprofloxacin, and intermediate sensitivity to imipenem and levofloxacin, patient continues on meropenem. Patient has been maximized on medical treatment, continues on IV Solu-Medrol 40 mg every 8 hours, she continues on nebulized bronchodilators, antibiotics Objective - Vital Signs Vital signs: Vital Signs Temp 98.1 F 10/30/19 12:00 Pulse 82 10/30/19 12:00 Resp 20 10/30/19 12:00 BP 153/78 10/30/19 12:00 Pulse Ox 99 10/30/19 12:00 Intake & Output 10/29/19 10/30/19 10/30/19 18:59 06:59 18:59 Intake Total 600 480 Balance 600 480 Weight 110.6 kg 110.6 kg Intake: Oral 600 480 Other: Voiding Method Toilet # Voids 1 2 - Exam GENERAL EXAM: Alert, very pleasant, 74-year-old white female, on 2 L of oxygen a pulse ox of 99%, comfortable in no apparent distress. HEAD: Normocephalic/atraumatic. EYES: Normal reaction of pupils, equal size. Conjunctiva pink, sclera white. NOSE: Clear with pink turbinates. THROAT: No erythema or exudates. NECK: No masses, no JVD, no thyroid enlargement, no adenopathy. CHEST: No chest wall deformity. Symmetrical expansion. LUNGS: Equal air entry with diffuse wheezes CVS: Regular rate and rhythm, normal S1 and S2, no gallops, no murmurs, no rubs ABDOMEN: Soft, nontender. No hepatosplenomegaly, normal bowel sounds, no guarding or rigidity. EXTREMITIES: No clubbing, no edema, no cyanosis, 2+ pulses and upper and lower extremities. MUSCULOSKELETAL: Muscle strength and tone normal. SPINE: No scoliosis or deformity SKIN: No rashes CENTRAL NERVOUS SYSTEM: Alert and oriented -3. No focal deficits, tone is normal in all 4 extremities. PSYCHIATRIC: Alert and oriented -3. Appropriate affect. Intact judgment and insight. - Labs CBC & Chem 7: 10/30/19 07:41 10/30/19 07:41 Labs: Abnormal Lab Results - Last 24 Hours (Table) 10/29/19 10/29/19 10/30/19 Range/Units 16:46 20:03 06:08 RBC (3.80-5.40) m/uL Hgb (11.4-16.0) gm/dL Hct (34.0-46.0) % MCHC (31.0-37.0) g/dL RDW (11.5-15.5) % Neutrophils # (1.3-7.7) k/uL Lymphocytes # (1.0-4.8) k/uL PT (9.0-12.0) sec INR (<1.2) Potassium (3.5-5.1) mmol/L BUN (7-17) mg/dL Glucose (74-99) mg/dL POC Glucose (mg/dL) 188 H 160 H 121 H (75-99) mg/dL 10/30/19 10/30/19 10/30/19 Range/Units 07:41 07:41 07:41 RBC 3.65 L (3.80-5.40) m/uL Hgb 9.4 L (11.4-16.0) gm/dL Hct 31.2 L (34.0-46.0) % MCHC 30.2 L (31.0-37.0) g/dL RDW 17.0 H (11.5-15.5) % Neutrophils # 8.2 H (1.3-7.7) k/uL Lymphocytes # 0.6 L (1.0-4.8) k/uL PT 19.2 H (9.0-12.0) sec INR 2.0 H (<1.2) Potassium 5.7 H (3.5-5.1) mmol/L BUN 50 H (7-17) mg/dL Glucose 113 H (74-99) mg/dL POC Glucose (mg/dL) (75-99) mg/dL 10/30/19 Range/Units 12:18 RBC (3.80-5.40) m/uL Hgb (11.4-16.0) gm/dL Hct (34.0-46.0) % MCHC (31.0-37.0) g/dL RDW (11.5-15.5) % Neutrophils # (1.3-7.7) k/uL Lymphocytes # (1.0-4.8) k/uL PT (9.0-12.0) sec INR (<1.2) Potassium (3.5-5.1) mmol/L BUN (7-17) mg/dL Glucose (74-99) mg/dL POC Glucose (mg/dL) 241 H (75-99) mg/dL Microbiology - Last 24 Hours (Table) 10/24/19 01:09 Blood Culture - Final Blood No Growth after 144 hours Assessment and Plan Plan: Assessment: #1. Acute exacerbation of COPD/chronic bronchial asthma, moderately persistent, with tracheobronchitis possibly related to Pseudomonas. Chest x-ray has been reviewed showing diffuse interstitial infiltrates slightly increased compared last chest x-ray, on the background of chronic interstitial changes, possibly p ulmonary fibrosis. #2. Chronic hypoxic respiratory failure related to advanced COPD, on 2 L of ox ygen #3. 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 Paroxysmal atrial fibrillation on Coumadin currently in sinus mechanism, INR therapeutic on admission at 3.0 #5. Diabetes mellitus type 2 #6. Chronic kidney disease, stage II #7. Hypertension #8. Osteoarthritis #9. Hypothyroidism #10. Chronic interstitial changes present on the chest x-ray likely related to underlying pulmonary fibrosis/scarring from previous pulmonary infections Plan: Patient continues to have bronchospastic, frequent coughing spells, not able to bring up sputum. Continue current dose of IV steroids, antibiotics, and nebulized bronchodilators. Patient has been slow to improve, we talked to her about possibility of bronchoscopy with BAL possibly tomorrow and the patient is agreeable. We'll make the patient. After midnight, obtain consent for bronchoscopy with BAL with Dr. Butler tomorrow I performed a history & physical examination of the patient and discussed their management with my nurse practitioner, Maryjo Parisi. I reviewed the nurse practitioner's note and agree with the documented findings and plan of care. Lung sounds are positive for diffuse wheezes throughout the lung carrera. The findings and the impression was discussed with the patient. I attest to the d ocumentation by the nurse practitioner. Time with Patient: Less than 30
[2019-10-30 16:44] LABS: Glucose,Whole Blood 140 mg/dL (75-99)
[2019-10-30 20:25] LABS: Glucose,Whole Blood 149 mg/dL (75-99)
[2019-10-30] MEDS: MONTELUKAST 10 MG TAB PO SCH (22:35)
[2019-10-30] MEDS: WARFARIN 5 MG TAB PO SCH (22:35)
[2019-10-30] MEDS: LACTATED RINGERS 1,000 ML IV SCH (22:36)
[2019-10-31] MEDS: PANTOPRAZOLE 40 MG TABLET PO SCH (05:53)
[2019-10-31] MEDS: LEVOTHYROXINE 50 MCG TAB PO SCH (05:53)
[2019-10-31 06:06] LABS: Glucose,Whole Blood 231 mg/dL (75-99)
[2019-10-31] MEDS: INSULIN DETEMIR (LEVEMIR) 100 UNIT/ML SYR SQ SCH (06:13)
[2019-10-31] MEDS: INSULIN REGULAR 100 UNIT/ML VIAL SQ SCH ×3 (06:13→17:43)
[2019-10-31] MEDS: INSULIN ASPART (NovoLOG) 100 UNIT/ML VIAL SQ SCH ×4 (06:31→20:54)
[2019-10-31 06:50] LABS: Anisocytosis Slight; Basophils % (A) 0 %; Eosinophils # (A) 0.1 k/uL (0-0.7); Eosinophils % (A) 1 %; HCT 33.5 % (34.0-46.0); HGB 10.4 gm/dL (11.4-16.0); Hypochromasia Moderate; Lymphocytes # (A) 0.7 k/uL (1.0-4.8); Lymphocytes % (A) 8 %; MCH 26.6 pg (25.0-35.0); MCV 85.8 fL (80.0-100.0); Mean Platelet Volume 7.1; Monocytes # (A) 0.3 k/uL (0-1.0); Monocytes % (A) 4 %; Neutrophils # (A) 8.5 k/uL (1.3-7.7); Neutrophils % (A) 88 %; Platelet Count 267 k/uL (150-450); RDW 16.6 % (11.5-15.5); WBC 9.7 k/uL (3.8-10.6)
[2019-10-31 07:01] LABS: Calcium 8.7 mg/dL (8.4-10.2)
[2019-10-31] MEDS: BUDESONIDE 1 MG/2 ML NEBU INHALATION SCH ×2 (08:27→19:33)
[2019-10-31] MEDS: FORMOTEROL FUMARATE 20 MCG/2 ML NEBU INHALATION SCH ×2 (08:27→19:33)
[2019-10-31] MEDS: IPRATROPIUM-ALBUTEROL 3 ML NEB INHALATION PRN ×4 (08:27→19:33)
--- NOTE | 2019-10-31 09:18 | CDI ---
Documentation Clarification Form Date: 10/31/2019 CDS: Danii HitchcockDiazGABY, CCDS Admit Date: 10/24/2019 Patient Name: Xi Lloyd Discharge Date: ATTENTION: The Clinical Documentation Specialists (CDI) and [facility] Coding Staff appreciate your assistance in clarifying documentation. Please respond to the clarification below the line at the bottom and electronically sign. The CDI & [facility] Coding staff will review the response and follow-up if needed. Please note: Queries are made part of the Legal Health Record. If you have any questions, please contact the author of this message via ITS. Dear Dr. Patrizia Arana: Anemia is documented in the 10/23 ED note, the 10/23 History & Physical & and the 10/23 Pulmonary Consult under the patient's history without further specificity. History/Risk Factors: Hypertensive Heart & Chronic Kidney Disease, Chronic Diastolic Heart Failure, CKD Stage 22, COPD, Chronic Hypoxic Respiratory Failure on Home O2, Pulmonary Fibrosis, IDDM II, Hypothyroidism. Patient's BMI is 42.4. Clinical indicators: Presented to the ED on 10/23 with SOB. Admitted with Acute Exacerbation of COPD, Pseudomonas Pneumonia & Acute Exacerbation of Diastolic Heart Failure. Hemoglobin 10/23: 9.8 - 8.9 on 10/27 Hematocrit 10/23: 30.8 - 28.4 on 10/27 Treatment: Home Rx: Ferrous Sulfate 325 mg daily continued during admission. In order to capture the severity of condition, please clarify the type of anemia and etiology if known:. Chronic blood loss anemia Iron deficiency anemia Nutritional anemia Anemia of chronic kidney disease Anemia of other chronic disease Unable to determine Other, please specify (Last Form Revision: April 2019) Unable to determine MTDD
[2019-10-31] MEDS: FUROSEMIDE 40 MG TAB PO SCH (09:24)
[2019-10-31] MEDS: ALPRAZolam 0.5 MG TAB PO SCH ×3 (09:24→20:54)
[2019-10-31] MEDS: ATORVASTATIN 10 MG TAB PO SCH (09:24)
[2019-10-31] MEDS: DILTIAZEM CD 180 MG CAP.ER.24H PO SCH (09:24)
[2019-10-31] MEDS: LORATADINE 10 MG TAB PO SCH (09:24)
[2019-10-31] MEDS: CITALOPRAM HYDROBROMIDE 20 MG TAB PO SCH (09:24)
[2019-10-31] MEDS: FERROUS SULFATE 325 MG TAB PO SCH (09:24)
[2019-10-31] MEDS: methylPREDNISolone SOD SUCCI 40 MG/ML 1 ML VIAL IV SCH ×3 (09:25→22:46)
--- NOTE | 2019-10-31 09:34 | CDI ---
Documentation Clarification Form Date: 10/31/2019 CDS: Danii Diaz CCS, CCDS Admit Date: 10/24/2019 Patient Name: Xi Lloyd Discharge Date: ATTENTION: The Clinical Documentation Specialists (CDI) and [facility] Coding Staff appreciate your assistance in clarifying documentation. Please respond to the clarification below the line at the bottom and electronically sign. The CDI & [facility] Coding staff will review the response and follow-up if needed. Please note: Queries are made part of the Legal Health Record. If you have any questions, please contact the author of this message via ITS. Dear Dr. Patrizia Arana: The patient presented to the ED on 10/23 with SOB, diagnosed with Acute Exacerbation of COPD, Acute on Chronic Diastolic CHF & Pneumonia due to Pseudomonas. History/Risk Factors: COPD, Chronic Hypoxic Respiratory Failure on Home O2, Hypertension, CKD II, Chronic Diastolic CHF, IDDM II, Hypothyroidism & Anemia nos. Clinical Indicators: The patient's record bed scale weight is 42.2. Height: 5ft 4in Weight: 112.1 kg LAB: Total Protein 6.1*, Albumin 3.1*. Nutritional Assessment: BMI 42.8 on 10/29, overweight. Weight 110.6 standing scale, [place] body weight 54.431 kg. 203% of ideal body weight. Treatment: IV Lasix, IV Azithromycin, INH Albuterol, IV Solumedrol, IV Rocephin, Insulin sq. Dietitian has not been consulted, no dietary recommendations. In your professional opinion, can you please clarify the significance of the following: Patient's BMI is recorded as 42.2, please document any associated conditions: Disease process, please specify: Other, please specify: Unable to determine (Last Revision: May 2017) Unable to determine Please do not query this again MTDD
[2019-10-31 12:10] LABS: Glucose,Whole Blood 183 mg/dL (75-99)
[2019-10-31] MEDS: MEROPENEM 1 GM in SODIUM CHLORIDE 0.9% 100 ML IVPB SCH ×2 (12:37→22:47)
--- NOTE | 2019-10-31 12:41 | P.PN ---
Subjective Progress Note Date: 10/31/19 Principal diagnosis: Acute exacerbation of COPD/chronic bronchial asthma, moderately persistent with tracheobronchitis related to Pseudomonas 74-year-old patient of Dr. Medrano, who is well-known to our practice from previous admissions for complications related to advanced COPD/chronic bronchial asthma, moderately persistent on home oxygen at 2 L, previous history of pseudomonal pulmonary infections, patient follows with Dr. Mendiola in the office. Other medical history includes paroxysmal A. fib on Coumadin, CHF, unspecified, diabetes mellitus type 2, GERD/reflux, hypertension, hypothyroidism. Patient presented to the hospital on 10/23/2019 with complaints of shortness of breath, cough, wheezing, her cough is minimally productive. Denied any fever, denied any chills, no nausea vomiting, no complaints of chest pain, reports fatigue and decreased appetite. No increased swelling in her lower extremities. Chest x-ray shows increasing interstitial pulmonary infiltr ates in addition to chronic interstitial changes present on previous chest x- rays, possibility of pulmonary fibrosis. White blood cell count was 7.4, hemoglobin is 9.8, INR was 3.0, sodium is 135, potassium is 4.8, CO2 31, BUN is 28, creatinine is 1.09, LFTs are within normal limits, proBNP was within normal limits at 427. Patient was initially started on azithromycin and Rocephin however patient has multiple BAL and sputum cultures from previous admissions positive for pseudomonas aeruginosa, most recent one showed resistance to Levaquin, imipenem, ciprofloxacin, and intermediate sensitivity to cefepime. On today's exam patient is resting quietly in bed, she is on 3 L of oxygen and a pulse ox of 97%, very bronchospastic and congested, but afebrile, vital signs are stable. No hemoptysis, no complaints of chest pain. No altered mentation. The patient is seen today 10/25/2019 in follow-up on the selective care unit. She is currently resting comfortably in bed. Awake and alert in no acute distress. She also was some dyspnea on minimal exertion. Still some cough and congestion. Maintaining good O2 saturations in the high 90s on 3 L/m per nasal cannula. She's been afebrile. We'll culture reveals no growth to date. Sputum culture revealing no growth to date. White count 10.7. Hemoglobin 9.2. INR 3.1. Sodium 135. Potassium 4.8. Creatinine 1.26. She is currently on meropenem. She remains on DuoNeb inhalations, Pulmicort and Perforomist inhalations, Singulair. The patient is seen today 10/26/2019 in follow-up on the selective care unit. She is currently sitting up in bed. Awake and alert in no acute distress. Still dyspneic with minimal exertion. Still with a dry nonproductive cough. Still with some chest tightness and wheezing. Maintaining good O2 saturations on 3 L/m nasal cannula. She's afebrile. Hemodynamically stable. Blood culture reveals no growth to date. Sputum culture reveals no growth. Blood glucose 165. Continued on bronchodilators, meropenem. The patient is seen today 10/29/2019 in follow-up on the selective care unit. She is currently sitting up in a chair at the bedside. Continues with a loose productive cough. Sputum culture positive for pseudomonas aeruginosa again. She is continued on meropenem. Maintaining O2 saturations in the upper 90s on 2 L/m per nasal cannula. She's been afebrile. Hemodynamically stable. INR 1.7. She remains on DuoNeb inhalations, Pulmicort and Perforomist inhalations, IV Solu-Medrol, Singulair. On 10/30/2019 patient seen in follow-up on selective care unit, she is awake and alert, in no acute distress. She is still having coughing spells, her anterior chest is starting to hurt from all the coughing, and possible muscle strain. Not able to bring up much sputum. Remains on 2 L of oxygen a pulse ox of 99%, hemodynamically stable, she's been afebrile, or sputum culture was positive for pseudomonas aeruginosa which showed resistance to ciprofloxacin, and intermediate sensitivity to imipenem and levofloxacin, patient continues on meropenem. Patient has been maximized on medical treatment, continues on IV Solu-Medrol 40 mg every 8 hours, she continues on nebulized bronchodilators, antibiotics On 10/31/2019 patient seen in follow-up on selective care unit.. She sits up in the recliner, in no acute distress, less bronchospastic on today's exam, with some bibasilar crackles, she's been scheduled for bronchoscopy with BAL today her cough may have subsided some. She continues on nebulized bronchodilators, she is on meropenem for pseudomonal tracheobronchitis, she remains on IV steroids. Complain that she has been retaining some fluid, her ankle show nonpitting pretibial edema, and ankle edema, she's been started on oral Lasix. No acute events overnight Objective - Vital Signs Vital signs: Vital Signs Temp 97.7 F 10/31/19 08:00 Pulse 85 10/31/19 11:53 Resp 18 10/31/19 03:36 BP 151/75 10/31/19 08:00 Pulse Ox 94 L 10/31/19 08:00 Intake & Output 10/30/19 10/31/19 10/31/19 18:59 06:59 18:59 Intake Total 1140 240 Balance 1140 240 Weight 110.6 kg 112.1 kg Intake: Oral 1140 240 Other: Voiding Method Toilet # Voids 3 1 - Exam GENERAL EXAM: Alert, very pleasant, 74-year-old white female, on 2 L of oxygen a pulse ox of 99%, comfortable in no apparent distress. HEAD: Normocephalic/atraumatic. EYES: Normal reaction of pupils, equal size. Conjunctiva pink, sclera white. NOSE: Clear with pink turbinates. THROAT: No erythema or exudates. NECK: No masses, no JVD, no thyroid enlargement, no adenopathy. CHEST: No chest wall deformity. Symmetrical expansion. LUNGS: Equal air entry with diffuse wheezes CVS: Regular rate and rhythm, normal S1 and S2, no gallops, no murmurs, no rubs ABDOMEN: Soft, nontender. No hepatosplenomegaly, normal bowel sounds, no guarding or rigidity. EXTREMITIES: No clubbing, no edema, no cyanosis, 2+ pulses and upper and lower extremities. MUSCULOSKELETAL: Muscle strength and tone normal. SPINE: No scoliosis or deformity SKIN: No rashes CENTRAL NERVOUS SYSTEM: Alert and oriented -3. No focal deficits, tone is normal in all 4 extremities. PSYCHIATRIC: Alert and oriented -3. Appropriate affect. Intact judgment and insight. - Labs CBC & Chem 7: 10/31/19 06:17 10/31/19 06:17 Labs: Abnormal Lab Results - Last 24 Hours (Table) 10/30/19 10/30/19 10/31/19 Range/Units 16:42 20:24 06:04 Hgb (11.4-16.0) gm/dL Hct (34.0-46.0) % RDW (11.5-15.5) % Neutrophils # (1.3-7.7) k/uL Lymphocytes # (1.0-4.8) k/uL Sodium (137-145) mmol/L BUN (7-17) mg/dL Glucose (74-99) mg/dL POC Glucose (mg/dL) 140 H 149 H 231 H (75-99) mg/dL 10/31/19 10/31/19 10/31/19 Range/Units 06:17 06:17 12:09 Hgb 10.4 L (11.4-16.0) gm/dL Hct 33.5 L (34.0-46.0) % RDW 16.6 H (11.5-15.5) % Neutrophils # 8.5 H (1.3-7.7) k/uL Lymphocytes # 0.7 L (1.0-4.8) k/uL Sodium 135 L (137-145) mmol/L BUN 47 H (7-17) mg/dL Glucose 222 H (74-99) mg/dL POC Glucose (mg/dL) 183 H (75-99) mg/dL Assessment and Plan Plan: Assessment: #1. Acute exacerbation of COPD/chronic bronchial asthma, moderately persistent, with tracheobronchitis possibly related to Pseudomonas. Chest x-ray has been reviewed showing diffuse interstitial infiltrates slightly increased compared last chest x-ray, on the background of chronic interstitial changes, possibly pulmonary fibrosis. #2. Chronic hypoxic respiratory failure related to advanced COPD, on 2 L of oxygen #3. 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 Paroxysmal atrial fibrillation on Coumadin currently in sinus mechanism, INR therapeutic on admission at 3.0 #5. Diabetes mellitus type 2 #6. Chronic kidney disease, stage II #7. Hypertension #8. Osteoarthritis #9. Hypothyroidism #10. Chronic interstitial changes present on the chest x-ray likely related to underlying pulmonary fibrosis/scarring from previous pulmonary infections Plan: Continue current medical treatment, continue with oral Lasix, no acute events overnight, patient has been nothing by mouth after midnight for bronchoscopy with BAL today. If she continues to improve and possibly consider discharge home possibly later on today or tomorrow I performed a history & physical examination of the patient and discussed their management with my nurse practitioner, Maryjo Parisi. I reviewed the nurse practitioner's note and agree with the documented findings and plan of care. Lung sounds are positive for diffuse wheezes throughout the lung carrera. The findings and the impression was discussed with the patient. I attest to the documentation by the nurse practitioner. Time with Patient: Less than 30
--- NOTE | 2019-10-31 12:55 | P.PN ---
Subjective Progress Note Date: 10/31/19 Principal diagnosis: 10/29/2019 This is a 74-year-old female who was recently admitted for increasing shortness of breath, cough, wheezing and history of advanced chronic obstructive pulmonary disease with chronic bronchial asthma moderately persistent and is being closely monitored. Patient was recently admitted and was found to have pseudomonas aeruginosa in the sputum and follows with Dr. Mendiola in the outpatient setting. Patient's sputum cultures finalized during this admission with Pseudomonas aeruginosa and is currently maintained on IV meropenem. Pulmonary following closely as well. Patient is currently maintained on IV steroids along with breathing inhalational treatments and will continue at this time. Patient is normally on Lasix in the outpatient setting although this is currently being heldhis kidney functions were slightly elevated. Patient's INR today is 1.7 and patient remains on Coumadin. BNP was drawn today and is elevated at 1060. A 2- D echo was ordered and is currently pending.Chest x-ray today shows similar mild cardiomegaly and suspected underlying COPD with patchy peripheral and basilar opacities similar to recent exam along with interstitial pneumonia and atypical pneumonia possibly. Patient continues to have dyspnea and cough with minimal production. Pulmonary following and discussing possible bronchoscopy with BAL. Will repeat labs and monitor vital signs closely. Also discussed with the patient about increasing activity as tolerated. patient's blood sugars continued to be elevated and will continue to closely monitor his patient is maintained on pre-meal insulin along with sliding scale and long-acting insulin. 10/30/2019 Patient is seen and examined follow-up continues to have dyspnea with exertion and a cough with minimal phlegm production. Pulmonary following closely. Patient is scheduled to undergo bronchoscopy with BAL in the morning. Patient underwent a 2-D echo showing moderate concentric left ventricular hypertrophy overall left ventricular systolic function is normal with an EF between 55 and 60%, mild mitral regurgitation along with moderate to severe tricuspid regurgitation present, and moderate to severe pulmonary hypertension. Patient will be resumed on her Lasix 40 mg daily and will repeat a.m. labs and continue to monitor closely. Patient is maintained on bronchodilators along with IV steroids and will continue at this time. Sputum cultures finalized showing Pseudomonas aeruginosa and is maintained on IV meropenem. Review of systems: Constitutional: No reports of fatigue, fever, or chills Cardiovascular: No reports of chest pain or palpitations Respiratory: reports shortness of breath and occasional cough with minimal phlegm production GI: No reports of nausea, vomiting, or diarrhea : No reports of dysuria or retention Neurovascular: No reports of weakness or numbness 10/31/2019 She is seen and evaluated in follow-up today continues to have some cough and dyspnea with exertion although states it is slightly improved from yesterday. Patient is increasing activity and walking around more. Patient scheduled to undergo bronchoscopy with BAL this afternoon. Patient was having some mild lower extremity edema noted 1+ pitting and resumed oral Lasix and will monitor closely. Creatinine today is 1.02 and potassium improved at 5.0. We will continue with low potassium diet and losartan has been discontinued. Sodium is currently 135. Patient is maintained on IV steroids along with bronchodilators and will continue at this time. Really no reports of chest pain, worsening shortness of breath, or palpitations. Patient is afebrile. No reports of nausea or vomiting patient is nothing by mouth for bronchoscopy today. Objective - Vital Signs Vital signs: Vital Signs Temp 97.7 F 10/31/19 08:00 Pulse 85 10/31/19 11:53 Resp 18 10/31/19 03:36 BP 151/75 10/31/19 08:00 Pulse Ox 94 L 10/31/19 08:00 Intake & Output 10/30/19 10/31/19 10/31/19 18:59 06:59 18:59 Intake Total 1140 240 Balance 1140 240 Weight 110.6 kg 112.1 kg Intake: Oral 1140 240 Other: Voiding Method Toilet # Voids 3 1 - Exam GENERAL: The patient is alert and oriented x3, sitting up in the chair. Well developed, well nourished. HEENT: Pupils are round and equally reacting to light. EOMI. No scleral icterus. No conjunctival pallor. Normocephalic, atraumatic. No pharyngeal erythema. No thyromegaly. CARDIOVASCULAR: S1 and S2 present. No murmurs, rubs, or gallops. PULMONARY: diminished breath sounds bilaterally with a few scattered rhonchi noted. Mild expiratory wheezing noted on the left more so than the right. Wheezing slightly improved, less bronchospastic ABDOMEN: Soft, nontender, nondistended, normoactive bowel sounds. No palpable organomegaly. MUSCULOSKELETAL: No joint swelling or deformity. EXTREMITIES: No cyanosis, clubbing, or pedal edema. mild bilateral lower extremity edema noted with 1+ pitting edema NEUROLOGICAL: Gross neurological examination did not reveal any focal deficits. SKIN: No rashes. - Labs CBC & Chem 7: 10/31/19 06:17 10/31/19 06:17 Labs: Abnormal Lab Results - Last 24 Hours (Table) 10/30/19 10/30/19 10/30/19 Range/Units 12:18 16:42 20:24 Hgb (11.4-16.0) gm/dL Hct (34.0-46.0) % RDW (11.5-15.5) % Neutrophils # (1.3-7.7) k/uL Lymphocytes # (1.0-4.8) k/uL Sodium (137-145) mmol/L BUN (7-17) mg/dL Glucose (74-99) mg/dL POC Glucose (mg/dL) 241 H 140 H 149 H (75-99) mg/dL 10/31/19 10/31/19 10/31/19 Range/Units 06:04 06:17 06:17 Hgb 10.4 L (11.4-16.0) gm/dL Hct 33.5 L (34.0-46.0) % RDW 16.6 H (11.5-15.5) % Neutrophils # 8.5 H (1.3-7.7) k/uL Lymphocytes # 0.7 L (1.0-4.8) k/uL Sodium 135 L (137-145) mmol/L BUN 47 H (7-17) mg/dL Glucose 222 H (74-99) mg/dL POC Glucose (mg/dL) 231 H (75-99) mg/dL Assessment and Plan Assessment: Acute COPD exacerbation with tracheobronchitis with sputum cultures finalizing s howing Pseudomonas aeruginosa Obesity with a body mass index of 42.4 Anemia of chronic kidney disease Chronic hypoxic respiratory failure on home oxygen Congestive heart failure, acute on chronic diastolic dysfunction, ejection fraction 55-60% Pulmonary fibrosis with chronic interstitial lung changes chronic kidney disease stage II Hyperglycemia with uncontrolled diabetes type 2 Paroxysmal atrial fibrillation on anticoagulation with Coumadin Hypertension Hypothyroidism Osteoarthritis Gastroesophageal reflux disease DVT prophylaxis GI prophylaxis Full code recommendations and discussion: Recommend to continue current medications, management, and symptomatic treatment. Patient is currently maintained on IV antibiotics in the form of meropenem for sputum cultures finalizing pseudomonas aeruginosa. Patient is also maintained on IV steroids along with breathing inhalational treatments and will continue at this time. pulmonary following closely and planning bronchoscopy with BAL this afternoon. Will resume oral Lasix dose. Instructed the patient to increase activity as tolerated. Due to multiple complex medical issues, prognosis is guarded. Further recommendations to follow. Possible discharge in 24 hours.
[2019-10-31] MEDS ORDERED: IV FLUID CONTINUATION 1,000 ML IV ONE (13:22)
[2019-10-31] MEDS ORDERED: KETAMINE 10 MG/ML 20 ML VIAL ONE (13:22)
[2019-10-31] MEDS ORDERED: LIDOCAINE 1% INJ 10MG/ML (20 ML MDV) ONE (13:22)
[2019-10-31] MEDS ORDERED: GLYCOPYRROLATE 0.2 MG/ML 2 ML VIAL ONE (13:22)
[2019-10-31] MEDS ORDERED: PROPOFOL 10 MG/ML 20 ML VIAL IV ONE (13:22)
[2019-10-31] MEDS ORDERED: LIDOCAINE 2% INJ 20 MG/ML INTRATRACH ONE ×2 (13:26)
[2019-10-31 17:13] LABS: Glucose,Whole Blood 249 mg/dL (75-99)
--- NOTE | 2019-10-31 17:17 | PCN ---
PROCEDURE NOTE PROCEDURE: Bronchoscopy, airway examination, therapeutic lavage, BAL right middle lobe. PREOPERATIVE DIAGNOSIS: Bronchiectasis, retained secretions. POSTOPERATIVE DIAGNOSIS: Bronchiectasis, retained secretions. The patient's procedure took place in room #1, there was informed consent and universal timeout. OPERATORS: Dr. Butler and Michelle Parisi. ANESTHESIA PROVIDED: General anesthesia. After the patient was adequately sedated and being fully monitored, the bronchoscope was inserted through the right nostril. It passed through the right nasopharynx into the oropharynx. The hypopharynx was then identified. Anterior commissure, true cords, false cords, arytenoids, right and left vallecula, epiglottis and piriform sinuses were evaluated. Everything appeared to be normal. There were some secretions in the hypopharynx. They were suctioned. After topicalization of the glottic opening, the bronchoscope was pushed through the glottic pushed through the glottic opening into the trachea. There was evidence of tracheomalacia throughout the course of the trachea. There were thick secretions noted in the trachea. They were suctioned. Next, the right and left mainstem were top lysed. The right upper lobe and its 3 segments right middle lobe and its 2 segments right lower lobe and its 5 segments left upper lobe and its 2 segments lingula and 2 segments and left lower lobe and its 4 segments all had similar findings of diffuse airway erythema and hyperemia. There were thick secretions noted throughout. They were purulent looking. They were suctioned with some difficulty. The bronchoscope was used to clear the secretions out from both sides. There was no dominant mass or tumor. There was no bleeding. There was some mild vascular prominence and mild mucosa for friability. The bronchoscope was wedged into the right middle lobe. Thirty mL of fluid was recovered and sent to the laboratory for analysis. There was no immediate complication. Additional saline was used to remove any additional secretions. The bronchoscope was withdrawn and the procedure was terminated. The patient will be recovered. MMODL / IJN: [id number] /
[2019-10-31 18:41] LABS: Appearance,BF Hazy; Color,BF Colorless; Nucleated Cells, Body Fluid 56 /uL; RBC, Body Fluid 28 /uL
[2019-10-31 20:18] LABS: Glucose,Whole Blood 390 mg/dL (75-99)
[2019-10-31 20:18] LABS: Mononuclear WBC,Body Fluid 9 %; Polynuclear WBC,Body Fluid 91 %
[2019-10-31] MEDS: LACTATED RINGERS 1,000 ML IV SCH (20:23)
[2019-10-31] MEDS: WARFARIN 5 MG TAB PO SCH (20:54)
[2019-10-31] MEDS: MONTELUKAST 10 MG TAB PO SCH (20:54)
[2019-10-31 23:45] VITALS: RESP 20
[2019-11-01] MEDS: LEVOTHYROXINE 50 MCG TAB PO SCH (06:05)
[2019-11-01] MEDS: PANTOPRAZOLE 40 MG TABLET PO SCH (06:05)
[2019-11-01 06:55] LABS: Glucose,Whole Blood 329 mg/dL (75-99)
[2019-11-01] MEDS: INSULIN DETEMIR (LEVEMIR) 100 UNIT/ML SYR SQ SCH (06:58)
[2019-11-01] MEDS: INSULIN REGULAR 100 UNIT/ML VIAL SQ SCH ×3 (06:59→17:10)
[2019-11-01] MEDS: INSULIN ASPART (NovoLOG) 100 UNIT/ML VIAL SQ SCH ×3 (06:59→17:10)
[2019-11-01] MEDS: IPRATROPIUM-ALBUTEROL 3 ML NEB INHALATION PRN ×4 (08:10→16:25)
[2019-11-01] MEDS: BUDESONIDE 1 MG/2 ML NEBU INHALATION SCH (08:10)
[2019-11-01] MEDS: FORMOTEROL FUMARATE 20 MCG/2 ML NEBU INHALATION SCH (08:10)
[2019-11-01] MEDS: CITALOPRAM HYDROBROMIDE 20 MG TAB PO SCH (09:36)
[2019-11-01] MEDS: LORATADINE 10 MG TAB PO SCH (09:36)
[2019-11-01] MEDS: DILTIAZEM CD 180 MG CAP.ER.24H PO SCH (09:36)
[2019-11-01] MEDS: methylPREDNISolone SOD SUCCI 40 MG/ML 1 ML VIAL IV SCH (09:36)
[2019-11-01] MEDS: FUROSEMIDE 40 MG TAB PO SCH (09:36)
[2019-11-01] MEDS: ALPRAZolam 0.5 MG TAB PO SCH (09:36)
[2019-11-01] MEDS: ATORVASTATIN 10 MG TAB PO SCH (09:36)
[2019-11-01] MEDS: FERROUS SULFATE 325 MG TAB PO SCH (09:36)
[2019-11-01 10:44] VITALS: BP 155/111; TEMP 98.1
[2019-11-01 11:12] LABS: Calcium 8.8 mg/dL (8.4-10.2); Potassium 4.3 mmol/L (3.5-5.1)
[2019-11-01 11:54] LABS: Glucose,Whole Blood 135 mg/dL (75-99)
[2019-11-01] MEDS: MEROPENEM 1 GM in SODIUM CHLORIDE 0.9% 100 ML IVPB SCH (13:02)
--- NOTE | 2019-11-01 14:05 | P.PN ---
Subjective Progress Note Date: 11/01/19 74-year-old patient of Dr. Medrano, who is well-known to our practice from previous admissions for complications related to advanced COPD/chronic bronchial asthma, moderately persistent on home oxygen at 2 L, previous history of pseudomonal pulmonary infections, patient follows with Dr. Mendiola in the off ice. Other medical history includes paroxysmal A. fib on Coumadin, CHF, unspecified, diabetes mellitus type 2, GERD/reflux, hypertension, hypothyroidism. Patient presented to the hospital on 10/23/2019 with complaints of shortness of breath, cough, wheezing, her cough is minimally productive. Den ied any fever, denied any chills, no nausea vomiting, no complaints of chest pain, reports fatigue and decreased appetite. No increased swelling in her lower extremities. Chest x-ray shows increasing interstitial pulmonary infiltrates in addition to chronic interstitial changes present on previous chest x-rays, possibility of pulmonary fibrosis. White blood cell count was 7.4, hemoglobin is 9.8, INR was 3.0, sodium is 135, potassium is 4.8, CO2 31, BUN is 28, creatinine is 1.09, LFTs are within normal limits, proBNP was within normal limits at 427. Patient was initially started on azithromycin and Rocephin however patient has multiple BAL and sputum cultures from previous admissions positive for pseudomonas aeruginosa, most recent one showed resistance to Levaquin, imipenem, ciprofloxacin, and intermediate sensitivity to cefepime. On today's exam patient is resting quietly in bed, she is on 3 L of oxygen and a pulse ox of 97%, very bronchospastic and congested, but afebrile, vital signs are stable. No hemoptysis, no complaints of chest pain. No altered mentation. The patient is seen today 10/25/2019 in follow-up on the selective care unit. She is currently resting comfortably in bed. Awake and alert in no acute distress. She also was some dyspnea on minimal exertion. Still some cough and congestion. Maintaining good O2 saturations in the high 90s on 3 L/m per nasal cannula. She's been afebrile. We'll culture reveals no growth to date. Sputum culture revealing no growth to date. White count 10.7. Hemoglobin 9.2. INR 3.1. Sodium 135. Potassium 4.8. Creatinine 1.26. She is currently on meropenem. She remains on DuoNeb inhalations, Pulmicort and Perforomist inhalations, Singulair. The patient is seen today 10/26/2019 in follow-up on the selective care unit. She is currently sitting up in bed. Awake and alert in no acute distress. Still dyspneic with minimal exertion. Still with a dry nonproductive cough. Still with some chest tightness and wheezing. Maintaining good O2 saturations on 3 L/m nasal cannula. She's afebrile. Hemodynamically stable. Blood culture reveals no growth to date. Sputum culture reveals no growth. Blood glucose 165. Continued on bronchodilators, meropenem. The patient is seen today 10/29/2019 in follow-up on the selective care unit. She is currently sitting up in a chair at the bedside. Continues with a loose productive cough. Sputum culture positive for pseudomonas aeruginosa again. She is continued on meropenem. Maintaining O2 saturations in the upper 90s on 2 L/m per nasal cannula. She's been afebrile. Hemodynamically stable. INR 1.7. She remains on DuoNeb inhalations, Pulmicort and Perforomist inhalations, IV Solu-Medrol, Singulair. On 10/30/2019 patient seen in follow-up on selective care unit, she is awake and alert, in no acute distress. She is still having coughing spells, her anterior chest is starting to hurt from all the coughing, and possible muscle strain. Not able to bring up much sputum. Remains on 2 L of oxygen a pulse ox of 99%, hemodynamically stable, she's been afebrile, or sputum culture was positive for pseudomonas aeruginosa which showed resistance to ciprofloxacin, and intermediate sensitivity to imipenem and levofloxacin, patient continues on meropenem. Patient has been maximized on medical treatment, continues on IV Solu-Medrol 40 mg every 8 hours, she continues on nebulized bronchodilators, antibiotics On 10/31/2019 patient seen in follow-up on [facility] care unit.. She sits up in the recliner, in no acute distress, less bronchospastic on today's exam, with some bibasilar crackles, she's been scheduled for bronchoscopy with BAL today her cough may have subsided some. She continues on nebulized bronchodilators, she is on meropenem for pseudomonal tracheobronchitis, she remains on IV steroids. Complain that she has been retaining some fluid, her ankle show nonpitting pretibial edema, and ankle edema, she's been started on oral Lasix. No acute events overnight The patient is seen again today 11/01/2019 in follow-up on the selective care unit. She is currently sitting up in a chair at the bedside. Awake and alert in no acute distress. She did undergo bronchoscopy with BAL yesterday. Cultures are pending. Earlier sputum culture revealed pseudomonas aeruginosa. She remains on meropenem. She is continued on bronchodilators, IV Solu-Medrol. Sodium 136. Potassium 4.3. Creatinine 0.97. Objective - Vital Signs Vital signs: Vital Signs Temp 98.1 F 11/01/19 08:00 Pulse 88 11/01/19 11:43 Resp 20 11/01/19 04:00 BP 155/111 11/01/19 08:00 Pulse Ox 96 11/01/19 08:00 Intake & Output 10/31/19 11/01/19 11/01/19 18:59 06:59 18:59 Intake Total 160 480 340 Balance 160 480 340 Weight 110.9 kg Intake: IV 100 Intake, IV Titration 60 Amount Lactated Ringers 1,000 ml 60 @ 20 mls/hr IV .Q24H [facility] Rx#:[id number] Oral 480 340 Other: Voiding Method Toilet # Voids 1 - Exam GENERAL EXAM: Alert, active, pleasant 74-year-old female patient, on 2 L nasal cannula, comfortable in no apparent distress. HEAD: Normocephalic. EYES: Normal reaction of pupils, equal size. NOSE: Clear with pink turbinates. THROAT: No erythema or exudates. NECK: No masses, no JVD. CHEST: No chest wall deformity. LUNGS: Equal air entry with bilateral end expiratory wheeze, scattered rhonchi, diminished CVS: S1 and S2 normal with no audible murmur, regular rhythm. ABDOMEN: No hepatosplenomegaly, normal bowel sounds, no guarding or rigidity. SPINE: No scoliosis or deformity SKIN: No rashes CENTRAL NERVOUS SYSTEM: No focal deficits, tone is normal in all 4 extremities. EXTREMITIES: There is no peripheral edema. No clubbing, no cyanosis. Periph eral pulses are intact. - Labs CBC & Chem 7: 10/31/19 06:17 11/01/19 10:34 Labs: Abnormal Lab Results - Last 24 Hours (Table) 10/31/19 10/31/19 11/01/19 Range/Units 17:01 20:16 06:54 Sodium (137-145) mmol/L BUN (7-17) mg/dL Glucose (74-99) mg/dL POC Glucose (mg/dL) 249 H 390 H 329 H (75-99) mg/dL 11/01/19 11/01/19 Range/Units 10:34 11:47 Sodium 136 L (137-145) mmol/L BUN 47 H (7-17) mg/dL Glucose 164 H (74-99) mg/dL POC Glucose (mg/dL) 135 H (75-99) mg/dL Microbiology - Last 24 Hours (Table) 10/31/19 13:25 Gram Stain - Preliminary Bronchoalviolar Lavage - Left Bronchial Washings Culture - Preliminary 10/31/19 13:25 Fungal Culture - Preliminary Bronchoalviolar Lavage - Left 10/31/19 13:25 Acid Fast Bacilli Culture - Preliminary Bronchoalviolar Lavage - Left Assessment and Plan Assessment: #1. Acute exacerbation of COPD/chronic bronchial asthma, moderately persistent, with tracheobronchitis possibly related to Pseudomonas. Cultures this admission did reveal pseudomonas aeruginosa again, currently on meropenem. Chest x-ray showing diffuse interstitial infiltrates slightly increased compared last chest x-ray, on the background of chronic interstitial changes, possibly pulmonary fibrosis. Status post bronchoscopy with BAL on 10/31/2019. #2. Chronic hypoxic respiratory failure related to advanced COPD, on 2 L of oxygen #3. 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 Paroxysmal atrial fibrillation on Coumadin currently in sinus mechanism, INR therapeutic at 3.1 #5. Diabetes mellitus type 2 #6. Chronic kidney disease, stage II #7. Hypertension #8. Osteoarthritis #9. Hypothyroidism #10. Chronic interstitial changes present on the chest x-ray likely related to underlying pulmonary fibrosis/scarring from previous pulmonary infections Plan: The patient was seen and evaluated by Dr. Mendiola Sputum positive for pseudomonas Bronchoscopy with BAL performed on 10/31/2019 Continued on meropenem Plan is for midline placement and continued home IV antibiotics Cleared for discharge from pulmonary standpoint I, the cosigning physician, performed a history & physical examination of the patient. Lungs sounds bilateral end expiratory wheeze, few scattered rhonchi diminished. Maintaining good O2 saturations in the 90s on 2 L/m per nasal cannula. I discussed the assessment and plan of care with my nurse practitioner, Su Arias. I attest to the above note as dictated by her.
[2019-11-01 16:29] VITALS: PULSE 90
[2019-11-01 16:46] LABS: Glucose,Whole Blood 107 mg/dL (75-99)
--- NOTE | 2019-11-01 19:38 | P.DS ---
Providers Date of admission: 10/24/19 02:37 Expected date of discharge: 11/01/19 Attending physician: Nixon Gamboa Consults: 10/24/19 09:05 Consult Physician Routine Consulting Provider: Alvaro Butler Consult Reason/Comments: Pneumonia Do you want consulting provider notified?: Yes 10/24/19 09:07 Consult Physician Urgent Consulting Provider: Isabella Chow Consult Reason/Comments: PNA/ COPD Do you want consulting provider notified?: Yes Primary care physician: Verona Medrano Hospital Course: Final diagnosis Acute COPD exacerbation with tracheobronchitis with sputum cultures finalizing showing Pseudomonas aeruginosa Obesity with a body mass index of 42.4 Anemia of chronic kidney disease Chronic hypoxic respiratory failure on home oxygen Congestive heart failure, acute on chronic diastolic dysfunction, ejection fraction 55-60% Pulmonary fibrosis with chronic interstitial lung changes chronic kidney disease stage II Hyperglycemia with uncontrolled diabetes type 2 Paroxysmal atrial fibrillation on anticoagulation with Coumadin Hypertension Hypothyroidism Osteoarthritis Gastroesophageal reflux disease DVT prophylaxis GI prophylaxis Full code Discharge disposition Patient is being discharged in a stable condition with guarded prognosis to home. Patient will continue with home care in the outpatient setting. Patient will follow-up with Dr. Medrano upon discharge. Patient also instructed to follow up with Dr. Butler in the outpatient setting for BAL results. Patient will continue on IV merrem for an additional 2 weeks. Patient will also continue with a prednisone taper. Total time taken is greater than 35 minutes. History of present illness This is a 74-year-old female who was recently admitted with for increasing shortness of breath, cough, wheezing and history of advanced chronic obstructive pulmonary disease with chronic bronchial asthma moderately persistent and was being closely monitored. was found to have pseudomonas aeruginosa in the sputum and follows with Dr. Mendiola in the outpatient setting. Patient's sputum cultures finalized during this admission with Pseudomonas aeruginosa and is cur rently maintained on IV meropenem. Patient to continue with IV merrem in the outpatient setting and will have home care with [facility]. Patient will also follow up with pulmonary in the outpatient setting for bronchoscopy results. Pulmonary following closely as well. Patient is currently maintained on IV steroids along with breathing inhalational treatments and will continue with breathing inhalational treatments along with a prednisone taper upon discharge. Currently no reports of chest pain, palpitations, or worsening shortness of breath. Patient is afebrile. No reports of nausea or vomiting and patient is tolerating diet. Patient would like to go home. Patient will be discharged to home today after receiving a midline. On exam vital signs are stable. Temp is 98.1F, pulse is 92, respirations are 20, blood pressure 155/111, oxygen saturation is 96% on 2L via NC. Cardio S1, S2 are present. Respiratory shows diminished breath sounds with scattered rh onchi and expiratory wheezing noted. Abdomen is soft and nontender. Nervous system shows no focal deficits. Please refer to medication reconciliation sheet for a list of medications. Patient Condition at Discharge: Stable Plan - Discharge Summary Discharge Rx Participant: No New Discharge Prescriptions: New Meropenem [Merrem] 1 gm IVPB Q12H 14 Days #28 vial predniSONE 10 mg PO DIRECTED #30 tab Continue Diltiazem HCl [Diltiazem HCl 24Hr ER] 180 mg PO DAILY Alendronate Sodium [Fosamax] 70 mg PO FR Lovastatin [Mevacor] 40 mg PO DAILY Citalopram Hydrobromide [Citalopram HBr] 40 mg PO DAILY ALPRAZolam [Xanax] 0.5 mg PO TID Ipratropium Nebulized [Atrovent Nebulized 0.2 MG/ML] 0.5 mg INHALATION RT-QID Levothyroxine Sodium [Synthroid] 50 mcg PO DAILY Losartan [Cozaar] 50 mg PO DAILY traMADol HCL 50 mg PO TID PRN PRN Reason: Pain Zafirlukast [Accolate] 20 mg PO BID Albuterol Nebulized [Ventolin Nebulized] 2.5 mg INHALATION RT-Q6H PRN PRN Reason: Shortness Of Breath Warfarin Sodium [Coumadin] 5 mg PO HS Loratadine [Claritin] 10 mg PO DAILY Albuterol Sulfate [Ventolin HFA] 1 - 2 puff INHALATION RT-Q6H PRN PRN Reason: Shortness Of Breath guaiFENesin [Mucinex] 600 mg PO Q12HR PRN #14 tablet.er PRN Reason: Cough Ferrous Sulfate [Iron (65 MG Elemental)] 325 mg PO DAILY #30 tab Insulin Regular, Human [NovoLIN R] See Protocol SQ ACHS MDD 30 UNITS Pantoprazole [Protonix] 40 mg PO AC-BRKFST #30 tablet. Budesonide-Formot 160-4.5 Mcg [Symbicort 160-4.5 Mcg Inhaler] 2 puff INHALATION RT-BID #1 puff Furosemide [Lasix] 40 mg PO DAILY Changed Potassium Chloride [Klor-Con 20] 10 meq PO DAILY #0 Insulin Glargine [Lantus] 40 unit SQ DAILY #0 Discharge Medication List ALPRAZolam [Xanax] 0.5 mg PO TID 01/16/19 [History] Alendronate Sodium [Fosamax] 70 mg PO FR 01/16/19 [History] Citalopram Hydrobromide [Citalopram HBr] 40 mg PO DAILY 01/16/19 [History] Diltiazem HCl [Diltiazem HCl 24Hr ER] 180 mg PO DAILY 01/16/19 [History] Ipratropium Nebulized [Atrovent Nebulized 0.2 MG/ML] 0.5 mg INHALATION RT-QID 01/16/19 [History] Levothyroxine Sodium [Synthroid] 50 mcg PO DAILY 01/16/19 [History] Losartan [Cozaar] 50 mg PO DAILY 01/16/19 [History] Lovastatin [Mevacor] 40 mg PO DAILY 01/16/19 [History] Zafirlukast [Accolate] 20 mg PO BID 01/16/19 [History] traMADol HCL 50 mg PO TID PRN 01/16/19 [History] Albuterol Nebulized [Ventolin Nebulized] 2.5 mg INHALATION RT-Q6H PRN 04/26/19 [History] Warfarin Sodium [Coumadin] 5 mg PO HS 06/28/19 [History] Albuterol Sulfate [Ventolin HFA] 1 - 2 puff INHALATION RT-Q6H PRN 08/07/19 [History] Loratadine [Claritin] 10 mg PO DAILY 08/07/19 [History] Ferrous Sulfate [Iron (65 MG Elemental)] 325 mg PO DAILY #30 tab 08/10/19 [Rx] guaiFENesin [Mucinex] 600 mg PO Q12HR PRN #14 tablet.er 08/10/19 [Rx] Insulin Regular, Human [NovoLIN R] See Protocol SQ ACHS MDD 30 UNITS 09/11/19 [History] Budesonide-Formot 160-4.5 Mcg [Symbicort 160-4.5 Mcg Inhaler] 2 puff INHALATION RT-BID #1 puff 09/15/19 [Rx] Pantoprazole [Protonix] 40 mg PO AC-BRKFST #30 tablet. 09/15/19 [Rx] Furosemide [Lasix] 40 mg PO DAILY 10/24/19 [History] Insulin Glargine [Lantus] 40 unit SQ DAILY #0 11/01/19 [Rx] Meropenem [Merrem] 1 gm IVPB Q12H 14 Days #28 vial 11/01/19 [Rx] Potassium Chloride [Klor-Con 20] 10 meq PO DAILY #0 11/01/19 [Rx] predniSONE 10 mg PO DIRECTED #30 tab 11/01/19 [Rx] Follow up Appointment(s)/Referral(s): Alvaro Butler DO [Doctor of Osteopathic Medicine] - 11/09/19 3:00 pm (WITH EJ MELVIN) [facility], [NON-STAFF] - [facility], [REFERRING] - (Will deliver iv antibiotics tonight 11/01/2019 between 6-8PM) Verona Medrano MD [Primary Care Provider] - 11/05/19 10:40 am Patient Instructions/Handouts: Viral Pneumonia (DC), Rigid Bronchoscopy (DC) Activity/Diet/Wound Care/Special Instructions: Activity Limited until follow-up Follow-up with primary care provider upon discharge Follow-up with pulmonary within 10 days to 2 weeks Continue with home care in the outpatient setting Continue with a prednisone taper Continue with IV antibiotics for 2 weeks Continue heart healthy diabetic diet Continue to monitor blood sugars before meals at bedtime and keep a diary for primary care follow-up Increase in long acting insulin Discharge Disposition: HOME WITH HOME HEALTH SERVICES
== END 2019-11-01 17:17 | disposition home health service (06) | DRG 190 ==
LOC: EC 23:40 → 3SCARD 10-24 02:37
PROVIDERS: ADMIT Hospitalist; ATTEND Hospitalist
PROC: 0B9D8ZX Drainage of Right Middle Lung Lobe, Via Natural or Artificial Opening Endoscopic, Diagnostic (ICD-10-PCS; 2019-10-31)
PROC: 05HA33Z Insertion of Infusion Device into Left Brachial Vein, Percutaneous Approach (ICD-10-PCS; principal; 2019-11-01 11:40)
DX: J44.1 Chronic obstructive pulmonary disease with (acute) exacerbation (principal); I50.33 Acute on chronic diastolic (congestive) heart failure; I13.0 Hypertensive heart and chronic kidney disease with heart failure and stage 1 through stage 4 chronic kidney disease, or unspecified chronic kidney disease; J96.11 Chronic respiratory failure with hypoxia; Z68.41 Body mass index [BMI] 40.0-44.9, adult; J20.9 Acute bronchitis, unspecified; J44.0 Chronic obstructive pulmonary disease with (acute) lower respiratory infection; D63.1 Anemia in chronic kidney disease; Z99.81 Dependence on supplemental oxygen; E11.22 Type 2 diabetes mellitus with diabetic chronic kidney disease; J84.10 Pulmonary fibrosis, unspecified; Z20.828 Contact with and (suspected) exposure to other viral communicable diseases; F41.0 Panic disorder [episodic paroxysmal anxiety]; N18.2 Chronic kidney disease, stage 2 (mild); J45.40 Moderate persistent asthma, uncomplicated; I48.0 Paroxysmal atrial fibrillation; K21.9 Gastro-esophageal reflux disease without esophagitis; E11.65 Type 2 diabetes mellitus with hyperglycemia; K44.9 Diaphragmatic hernia without obstruction or gangrene; M19.90 Unspecified osteoarthritis, unspecified site; E66.9 Obesity, unspecified; E03.9 Hypothyroidism, unspecified; H91.90 Unspecified hearing loss, unspecified ear; Z79.01 Long term (current) use of anticoagulants; Z79.890 Hormone replacement therapy; Z79.4 Long term (current) use of insulin; Z79.51 Long term (current) use of inhaled steroids; Z79.899 Other long term (current) drug therapy; Z90.49 Acquired absence of other specified parts of digestive tract; Z90.710 Acquired absence of both cervix and uterus; Z98.890 Other specified postprocedural states; Z98.42 Cataract extraction status, left eye; Z77.22 Contact with and (suspected) exposure to environmental tobacco smoke (acute) (chronic); Z79.52 Long term (current) use of systemic steroids; Z79.83 Long term (current) use of bisphosphonates
CPT/HCPCS: 31624; 36410; 36415; 71045; 71046; 76937; 80048; 80053; 82947; 83605; 83735; 83880; 84484; 85025; 85610; 85730; 87040; 87070; 87077; 87102; 87116; 87186; 87205; 87206; 87252; 87496; 87498; 87502; 87529; 87634; 87798; 88108; 88305; 89050; 93005; 93306; 94640; 94760; 96365; 96375; 99285

== ENCOUNTER 2019-11-02 12:43 | Emergency (ER) | payer MEDICARE ==
[2019-11-02 12:50] VITALS: BP 176/88; PULSE 89; RESP 18; TEMP 98.5
--- NOTE | 2019-11-02 13:16 | ED ---
General Adult HPI - General Chief complaint: Recheck/Abnormal Lab/Rx Stated complaint: wants Picc line replaced Time Seen by Provider: 11/02/19 12:45 Source: patient, RN notes reviewed, old records reviewed Mode of arrival: wheelchair Limitations: no limitations - History of Present Illness Initial comments: This is a 74-year-old female who just left the hospital yesterday with a PICC line in for antibiotics for lung infection. Patient states the nurse came to the house was unable to get the PICC line to work so she is back here today to see if we can get the PICC line functional and/or replace the PICC line. Patient states she has no new symptoms whatsoever. - Related Data Home Medications Medication Instructions Recorded Confirmed ALPRAZolam [Xanax] 0.5 mg PO TID 01/16/19 11/02/19 Alendronate Sodium [Fosamax] 70 mg PO FR 01/16/19 11/02/19 Citalopram Hydrobromide 40 mg PO DAILY 01/16/19 11/02/19 [Citalopram HBr] Diltiazem HCl [Diltiazem HCl 24Hr 180 mg PO DAILY 01/16/19 11/02/19 ER] Ipratropium Nebulized [Atrovent 0.5 mg INHALATION RT-QID 01/16/19 11/02/19 Nebulized 0.2 MG/ML] Levothyroxine Sodium [Synthroid] 50 mcg PO DAILY 01/16/19 11/02/19 Losartan [Cozaar] 50 mg PO DAILY 01/16/19 11/02/19 Lovastatin [Mevacor] 40 mg PO DAILY 01/16/19 11/02/19 Zafirlukast [Accolate] 20 mg PO BID 01/16/19 11/02/19 traMADol HCL 50 mg PO TID PRN 01/16/19 11/02/19 Albuterol Nebulized [Ventolin 2.5 mg INHALATION RT-Q6H PRN 04/26/19 11/02/19 Nebulized] Warfarin Sodium [Coumadin] 5 mg PO HS 06/28/19 11/02/19 Albuterol Sulfate [Ventolin HFA] 1 - 2 puff INHALATION RT-Q6H PRN 08/07/19 11/02/19 Loratadine [Claritin] 10 mg PO DAILY 08/07/19 11/02/19 Insulin Regular, Human [NovoLIN R] See Protocol SQ ACHS MDD 30 UNITS 09/11/19 11/02/19 Furosemide [Lasix] 40 mg PO DAILY 10/24/19 11/02/19 predniSONE See Taper PO DAILY 11/02/19 11/02/19 Previous Rx's Medication Instructions Recorded Ferrous Sulfate [Iron (65 MG 325 mg PO DAILY #30 tab 08/10/19 Elemental)] guaiFENesin [Mucinex] 600 mg PO Q12HR PRN #14 tablet.er 08/10/19 Budesonide-Formot 160-4.5 Mcg 2 puff INHALATION RT-BID #1 puff 09/15/19 [Symbicort 160-4.5 Mcg Inhaler] Pantoprazole [Protonix] 40 mg PO AC-BRKFST #30 tablet. 09/15/19 Insulin Glargine [Lantus] 40 unit SQ DAILY #0 11/01/19 Meropenem [Merrem] 1 gm IVPB Q12H 14 Days #28 vial 11/01/19 Potassium Chloride [Klor-Con 20] 10 meq PO DAILY #0 11/01/19 Allergies Allergy/AdvReac Type Severity Reaction Status Date / Time Iodinated Contrast Media Allergy Unknown, Verified 11/02/19 14:08 POOR RENAL FUNCTIONS Sulfa (Sulfonamide Allergy Unknown Verified 11/02/19 14:08 Antibiotics) latex AdvReac Rash/Hives Verified 11/02/19 14:08 Penicillins AdvReac Rash/Hives Verified 11/02/19 14:08 Review of Systems ROS Statement: Those systems with pertinent positive or pertinent negative responses have been documented in the HPI. ROS Other: All systems not noted in ROS Statement are negative. Past Medical History Past Medical History: Atrial Fibrillation, Asthma, Heart Failure, COPD, Diabetes Mellitus, GERD/Reflux, Hearing Disorder / Deafness, Hypertension, Osteoarthritis (OA), Pneumonia, Renal Disease, Thyroid Disorder Additional Past Medical History / Comment(s): HOLE IN RIGHT RETINA. hiatal hernia, anemia, chronic hypoxic respiratory failure, recent pulmonary infection with pseudomonas aeruginosa confirmed via bronchoscopy and the lavage History of Any Multi-Drug Resistant Organisms: Other MDRO Past Surgical History: Cholecystectomy, Hysterectomy Additional Past Surgical History / Comment(s): CATARACT REMOVAL LEFT EYE. Past Anesthesia/Blood Transfusion Reactions: No Reported Reaction Past Psychological History: Anxiety, Panic Disorder Smoking Status: Never smoker Past Alcohol Use History: None Reported Past Drug Use History: None Reported - Past Family History Mother Family Medical History: No Reported History General Exam - General Exam Comments Initial Comments: GENERAL Patient is well-developed and well-nourished. Patient is in mild distress. EYES Patient's pupils are equal and round. Extraocular motion is intact SKIN Unremarkable NEURO The patient is alert and oriented 3 PYSCH Patient has normal interpersonal interactions. MUSCULOSKELETAL Left arm has the PICC line placed and does not appear any redness or tenderness or swelling to the left arm Limitations: no limitations Course Vital Signs 11/02/19 12:45 Temperature 98.5 F Pulse Rate 89 Respiratory 18 Rate Blood Pressure 176/88 O2 Sat by Pulse 99 Oximetry Medical Decision Making - Medical Decision Making Mid line could not be flushed heparin was driving was unsuccessful. Nursing from the catheter came down and replaced the midline. Disposition Clinical Impression: Intravenous infusion line dysfunction Disposition: HOME SELF-CARE Condition: Good Is patient prescribed a controlled substance at d/c from ED?: No Referrals: Verona Medrano MD [Primary Care Provider] - 1-2 days Time of Disposition: 14:39
== END 2019-11-02 14:40 | disposition home or self-care (01) ==
LOC: EC 12:43
DX: Z45.2 Encounter for adjustment and management of vascular access device (principal); T82.594A Other mechanical complication of infusion catheter, initial encounter; F41.9 Anxiety disorder, unspecified; F41.0 Panic disorder [episodic paroxysmal anxiety]; E11.9 Type 2 diabetes mellitus without complications; J44.9 Chronic obstructive pulmonary disease, unspecified; I48.91 Unspecified atrial fibrillation; I11.0 Hypertensive heart disease with heart failure; I50.9 Heart failure, unspecified; K21.9 Gastro-esophageal reflux disease without esophagitis; M19.90 Unspecified osteoarthritis, unspecified site; E07.9 Disorder of thyroid, unspecified; Z79.51 Long term (current) use of inhaled steroids; Z79.01 Long term (current) use of anticoagulants; Z79.890 Hormone replacement therapy; Z79.899 Other long term (current) drug therapy; Z79.4 Long term (current) use of insulin; Z98.42 Cataract extraction status, left eye; Z88.0 Allergy status to penicillin; Z88.2 Allergy status to sulfonamides; Z91.040 Latex allergy status; Z91.041 Radiographic dye allergy status
CPT/HCPCS: 99283; 96374; J1642

== ENCOUNTER → 2019-11-02 | Day surgery (SDC) | payer MEDICARE | LOC: CATHCVL 12:45 | PROVIDERS: ATTEND Internal Medicine Critical Care Medicine | DX: Z45.2 Encounter for adjustment and management of vascular access device (principal); B96.5 Pseudomonas (aeruginosa) (mallei) (pseudomallei) as the cause of diseases classified elsewhere | CPT/HCPCS: 36410; 76937; C1751 ==

== ENCOUNTER 2019-11-27 14:50 | Inpatient (IN) | payer MEDICARE ==
[2019-11-27] MEDS ORDERED: IPRATROPIUM-ALBUTEROL 3 ML NEB INHALATION STA (15:14)
[2019-11-27] MEDS ORDERED: ALBUTEROL NEBULIZED 2.5 MG/3 ML INHALATION STA (15:15)
--- NOTE | 2019-11-27 15:34 | ED ---
SOB HPI - General Chief Complaint: Shortness of Breath Stated Complaint: Diff Breathing,Nico Leg Swelling Time Seen by Provider: 11/27/19 14:55 Source: patient Mode of arrival: ambulatory Limitations: no limitations - History of Present Illness Initial Comments: 74-year-old female has a history of A. fib on Coumadin, COPD, congestive heart failure who presents to the emergency room with report shortness of breath. She normally wears 2 L of oxygen at home. Report from the past several days her breathing has gotten worse. She has had increased swelling in her lower extremities with the right being worse than left. Patient has a history of COPD and states her inhalers haven't been helping. She also has a history of heart failure. She is on diuretics and has not missed any doses. Continues to urinate frequently. She denies a history of DVT or PE. Does have a history of A. fib and is on Coumadin. Reports that last time her INR was checked and was therapeutic. She admits to a cough with mild productive green sputum. No fevers or chills. No sick contacts with similar symptoms. Denies chest pain. No nausea or vomiting. No recent travel. Patient cannot lay flat to sleep. No other alleviating, precipitating or modifying factors - Related Data Home Medications Medication Instructions Recorded Confirmed ALPRAZolam [Xanax] 0.5 mg PO TID 01/16/19 11/27/19 Alendronate Sodium [Fosamax] 70 mg PO FR 01/16/19 11/27/19 Citalopram Hydrobromide 40 mg PO DAILY 01/16/19 11/27/19 [Citalopram HBr] Diltiazem HCl [Diltiazem HCl 24Hr 180 mg PO DAILY 01/16/19 11/27/19 ER] Ipratropium Nebulized [Atrovent 0.5 mg INHALATION RT-QID 01/16/19 11/27/19 Nebulized 0.2 MG/ML] Levothyroxine Sodium [Synthroid] 50 mcg PO DAILY 01/16/19 11/27/19 Losartan [Cozaar] 50 mg PO DAILY 01/16/19 11/27/19 Lovastatin [Mevacor] 40 mg PO DAILY 01/16/19 11/27/19 Zafirlukast [Accolate] 20 mg PO BID 01/16/19 11/27/19 traMADol HCL 50 mg PO TID PRN 01/16/19 11/27/19 Albuterol Nebulized [Ventolin 2.5 mg INHALATION RT-Q6H PRN 04/26/19 11/27/19 Nebulized] Warfarin Sodium [Coumadin] 5 mg PO HS 06/28/19 11/27/19 Albuterol Sulfate [Ventolin HFA] 1 - 2 puff INHALATION RT-Q6H PRN 08/07/1911/26 Loratadine [Claritin] 10 mg PO DAILY 08/07/19 11/27/19 Insulin Regular, Human [NovoLIN R] See Protocol SQ ACHS MDD 30 UNITS 09/11/19 11/27/19 Furosemide [Lasix] 40 mg PO DAILY 10/24/19 11/27/19 Multivitamins, Thera [Multivitamin 1 tab PO DAILY 11/27/19 11/27/19 (formulary)] Previous Rx's Medication Instructions Recorded Ferrous Sulfate [Iron (65 MG 325 mg PO DAILY #30 tab 08/10/19 Elemental)] guaiFENesin [Mucinex] 600 mg PO Q12HR PRN #14 tablet.er 08/10/19 Budesonide-Formot 160-4.5 Mcg 2 puff INHALATION RT-BID #1 puff 09/15/19 [Symbicort 160-4.5 Mcg Inhaler] Pantoprazole [Protonix] 40 mg PO AC-BRKFST #30 tablet. 09/15/19 Insulin Glargine [Lantus] 40 unit SQ DAILY #0 11/01/19 Potassium Chloride [Klor-Con 20] 10 meq PO DAILY #0 11/01/19 Allergies Allergy/AdvReac Type Severity Reaction Status Date / Time Iodinated Contrast Media Allergy Unknown, Verified 11/27/19 17:17 POOR RENAL FUNCTIONS Sulfa (Sulfonamide Allergy Unknown Verified 11/27/19 17:17 Antibiotics) latex AdvReac Rash/Hives Verified 11/27/19 17:17 Penicillins AdvReac Rash/Hives Verified 11/27/19 17:17 Review of Systems ROS Statement: Those systems with pertinent positive or pertinent negative responses have been documented in the HPI. ROS Other: All systems not noted in ROS Statement are negative. Past Medical History Past Medical History: Atrial Fibrillation, Asthma, Heart Failure, COPD, Diabetes Mellitus, GERD/Reflux, Hearing Disorder / Deafness, Hypertension, Osteoarthritis (OA), Pneumonia, Renal Disease, Thyroid Disorder Additional Past Medical History / Comment(s): HOLE IN RIGHT RETINA. hiatal hernia, anemia, chronic hypoxic respiratory failure, recent pulmonary infection with pseudomonas aeruginosa confirmed via bronchoscopy and the lavage History of Any Multi-Drug Resistant Organisms: Other MDRO Past Surgical History: Cholecystectomy, Hysterectomy Additional Past Surgical History / Comment(s): CATARACT REMOVAL LEFT EYE. Past Anesthesia/Blood Transfusion Reactions: No Reported Reaction Past Psychological History: Anxiety, Panic Disorder Smoking Status: Never smoker Past Alcohol Use History: None Reported Past Drug Use History: None Reported - Past Family History Mother Family Medical History: No Reported History General Exam Limitations: no limitations General appearance: alert, anxious Head exam: Present: atraumatic, normocephalic, normal inspection ENT exam: Present: normal exam, mucous membranes moist Neck exam: Present: normal inspection. Absent: tenderness, meningismus, lymphadenopathy Respiratory exam: Present: rales, rhonchi, accessory muscle use, other (tachypnia) Cardiovascular Exam: Present: regular rate, normal rhythm, normal heart sounds. Absent: systolic murmur, diastolic murmur, rubs, gallop, clicks GI/Abdominal exam: Present: soft, normal bowel sounds. Absent: distended, tenderness, guarding, rebound, rigid Extremities exam: Present: pedal edema (Left lower extremity brawny edema is worse than right. 4+ left lower extremity, 3+ right lower extremity. Left anterior calf has erythema and is warm to the touch. Several areas of scabbing. 2+ DP and PT pulses) Neurological exam: Present: alert, oriented X3 Psychiatric exam: Present: anxious Skin exam: Present: warm, dry, intact, normal color, rash (left anterior calf) Course Vital Signs 11/27/19 11/27/19 11/27/19 14:53 15:39 15:44 Temperature 98.8 F Pulse Rate 100 90 91 Respiratory 18 20 Rate Blood Pressure 191/74 173/66 O2 Sat by Pulse 94 L 98 Oximetry 11/27/19 11/27/19 11/27/19 15:54 17:00 18:06 Temperature 97.9 F Pulse Rate 90 92 86 Respiratory 20 20 Rate Blood Pressure 184/90 156/67 O2 Sat by Pulse 97 97 Oximetry Medical Decision Making - Medical Decision Making Upon arrival the patient is placed into room 24. A thorough history and physical exam was performed. She is extremely tachypneic upon arrival with increased work of breathing. Patient is placed on supplemental oxygen and given a DuoNeb breathing treatment followed by an albuterol treatment area laboratory studies were conducted. A peripheral IV was established. Chest x-ray was performed as well as a left lower trauma a Doppler. Patient is therapeutic on her Coumadin with an INR of 2.9. BNP is 372. Chest x-ray demonstrates dev eloping congestive heart failure. Ultrasound is negative for DVT. Patient does take 40 mg of Lasix daily. I did give her 60 mg IV. I also gave her dose of Rocephin for her left lower externally cellulitis and productive cough. I did recommend hospital admission as the patient is already oxygen dependent. She'll be admitted to [facility]. I discussed the case with Dr. nunez who accept admission. Patient is currently awaiting a bed on the floor - Lab Data Result diagrams: 11/28/19 05:26 11/28/19 05:26 Lab Results 11/27/19 11/27/19 11/27/19 Range/Units 15:36 15:36 15:36 WBC 6.8 (3.8-10.6) k/uL RBC 3.72 L (3.80-5.40) m/uL Hgb 10.1 L (11.4-16.0) gm/dL Hct 31.5 L (34.0-46.0) % MCV 84.6 (80.0-100.0) fL MCH 27.2 (25.0-35.0) pg MCHC 32.1 (31.0-37.0) g/dL RDW 16.3 H (11.5-15.5) % Plt Count 178 (150-450) k/uL Neutrophils % 60 % Lymphocytes % 28 % Monocytes % 9 % Eosinophils % 2 % Basophils % 1 % Neutrophils # 4.0 (1.3-7.7) k/uL Lymphocytes # 1.9 (1.0-4.8) k/uL Monocytes # 0.6 (0-1.0) k/uL Eosinophils # 0.1 (0-0.7) k/uL Basophils # 0.0 (0-0.2) k/uL Hypochromasia Slight Poikilocytosis Slight Anisocytosis Slight PT 28.3 H (9.0-12.0) sec INR 2.9 H (<1.2) APTT 42.8 H (22.0-30.0) sec Sodium 137 (137-145) mmol/L Potassium 4.3 (3.5-5.1) mmol/L Chloride 104 (98-107) mmol/L Carbon Dioxide 28 (22-30) mmol/L Anion Gap 5 mmol/L BUN 23 H (7-17) mg/dL Creatinine 0.92 (0.52-1.04) mg/dL Est GFR (CKD-EPI)AfAm 72 (>60 ml/min/1.73 sqM) Est GFR (CKD-EPI)NonAf 63 (>60 ml/min/1.73 sqM) Glucose 189 H (74-99) mg/dL Plasma Lactic Acid Yasir (0.7-2.0) mmol/L Calcium 8.6 (8.4-10.2) mg/dL Total Bilirubin 0.6 (0.2-1.3) mg/dL AST 40 H (14-36) U/L ALT 36 H (4-34) U/L Alkaline Phosphatase 77 (38-126) U/L Troponin I (0.000-0.034) ng/mL NT-Pro-B Natriuret Pep pg/mL Total Protein 6.6 (6.3-8.2) g/dL Albumin 3.6 (3.5-5.0) g/dL 11/27/19 11/27/19 11/27/19 Range/Units 15:36 15:36 15:36 WBC (3.8-10.6) k/uL RBC (3.80-5.40) m/uL Hgb (11.4-16.0) gm/dL Hct (34.0-46.0) % MCV (80.0-100.0) fL MCH (25.0-35.0) pg MCHC (31.0-37.0) g/dL RDW (11.5-15.5) % Plt Count (150-450) k/uL Neutrophils % % Lymphocytes % % Monocytes % % Eosinophils % % Basophils % % Neutrophils # (1.3-7.7) k/uL Lymphocytes # (1.0-4.8) k/uL Monocytes # (0-1.0) k/uL Eosinophils # (0-0.7) k/uL Basophils # (0-0.2) k/uL Hypochromasia Poikilocytosis Anisocytosis PT (9.0-12.0) sec INR (<1.2) APTT (22.0-30.0) sec Sodium (137-145) mmol/L Potassium (3.5-5.1) mmol/L Chloride (98-107) mmol/L Carbon Dioxide (22-30) mmol/L Anion Gap mmol/L BUN (7-17) mg/dL Creatinine (0.52-1.04) mg/dL Est GFR (CKD-EPI)AfAm (>60 ml/min/1.73 sqM) Est GFR (CKD-EPI)NonAf (>60 ml/min/1.73 sqM) Glucose (74-99) mg/dL Plasma Lactic Acid Yasir 0.8 (0.7-2.0) mmol/L Calcium (8.4-10.2) mg/dL Total Bilirubin (0.2-1.3) mg/dL AST (14-36) U/L ALT (4-34) U/L Alkaline Phosphatase (38-126) U/L Troponin I <0.012 (0.000-0.034) ng/mL NT-Pro-B Natriuret Pep 372 pg/mL Total Protein (6.3-8.2) g/dL Albumin (3.5-5.0) g/dL - EKG Data EKG Comments: EKG demonstrates normal sinus rhythm with a ventricular rate of 90.. 116. QRS 110. QTC of 467. No acute ST segment elevations or depressions concerning for ischemic changes Disposition Clinical Impression: COPD with acute exacerbation, Congestive heart failure, Left leg cellulitis Disposition: ADMITTED IP TO THIS HOSP Condition: Stable Is patient prescribed a controlled substance at d/c from ED?: No Decision to Admit Reason: Admit from EC Decision Date: 11/27/19 Decision Time: 16:38
[2019-11-27 15:46] LABS: Anisocytosis Slight; Basophils % (A) 1 %; Eosinophils # (A) 0.1 k/uL (0-0.7); Eosinophils % (A) 2 %; HCT 31.5 % (34.0-46.0); HGB 10.1 gm/dL (11.4-16.0); Hypochromasia Slight; Lymphocytes # (A) 1.9 k/uL (1.0-4.8); Lymphocytes % (A) 28 %; MCH 27.2 pg (25.0-35.0); MCHC 32.1 g/dL (31.0-37.0); MCV 84.6 fL (80.0-100.0); Mean Platelet Volume 6.5; Monocytes # (A) 0.6 k/uL (0-1.0); Monocytes % (A) 9 %; Neutrophils % (A) 60 %; Platelet Count 178 k/uL (150-450); Poikilocytosis Slight; RBC 3.72 m/uL (3.80-5.40); RDW 16.3 % (11.5-15.5); WBC 6.8 k/uL (3.8-10.6)
[2019-11-27 15:58] LABS: INR 2.9 (<1.2); Partial Thromboplastin Time 42.8 sec (22.0-30.0); Prothrombin Time 28.3 sec (9.0-12.0)
[2019-11-27 16:03] LABS: Albumin 3.6 g/dL (3.5-5.0); Calcium 8.6 mg/dL (8.4-10.2); Potassium 4.3 mmol/L (3.5-5.1); Total Bilirubin 0.6 mg/dL (0.2-1.3); Total Protein 6.6 g/dL (6.3-8.2)
--- NOTE | 2019-11-27 16:24 | XR ---
EXAMINATION TYPE: XR chest 2V DATE OF EXAM: 11/27/2019 COMPARISON: 10/29/2019 INDICATION: Difficulty breathing TECHNIQUE: Frontal and lateral views of the chest are obtained. FINDINGS: The heart size is mildly prominent. The pulmonary vasculature is there is prominence of pulmonary vascular markings.. Mild bibasilar infiltrates are present. A small right pleural effusion may be present.. IMPRESSION: 1. Correlate for developing congestive heart failure.
[2019-11-27] MEDS ORDERED: cefTRIAXone IN SWFI 1,000 MG/10 ML SYRINGE IVP STA (16:32)
[2019-11-27] MEDS ORDERED: FUROSEMIDE 10 MG/ML 10 ML VIAL IV STA (16:33)
[2019-11-27] MEDS ORDERED: NALOXONE 0.4 MG/ML 1 ML VIAL IV PRN (16:38)
--- NOTE | 2019-11-27 17:15 | US ---
EXAMINATION TYPE: US venous doppler duplex LE LT DATE OF EXAM: 11/27/2019 4:56 PM COMPARISON: NONE CLINICAL HISTORY: shortness of breath. COPD. SIDE PERFORMED: Left TECHNIQUE: The lower extremity deep venous system is examined utilizing real time linear array sonog teresa with graded compression, doppler sonography and color-flow sonography. VESSELS IMAGED: External Iliac Vein (EIV) Common Femoral Vein Deep Femoral Vein Greater Saphenous Vein * Femoral Vein Popliteal Vein Small Saphenous Vein * Proximal Calf Veins (* superficial vessels) Limited visualization due to patient body habitus Left Leg: Negative for acute DVT Grayscale, color doppler, spectral doppler imaging performed of the deep veins of the left lower extr emity. There is normal flow, compressibility, vascular waveforms. IMPRESSION: Suboptimal study due to body habitus. No convincing evidence of acute DVT in left lower extremity on the images saved. [id number] diffuse subcutaneous edema noted popliteal region ext ending inferiorly towards the end of study.
[2019-11-27 21:32] LABS: Glucose,Whole Blood 178 mg/dL (75-99)
[2019-11-27] MEDS: HEPARIN SODIUM,PORCINE 5,000 UNIT/ML 1 ML VIAL SQ SCH (22:23)
[2019-11-27] MEDS: INSULIN ASPART (NovoLOG) 100 UNIT/ML VIAL SQ SCH (22:24)
[2019-11-28 06:01] LABS: Anisocytosis Slight; Basophils % (A) 0 %; Eosinophils # (A) 0.1 k/uL (0-0.7); Eosinophils % (A) 2 %; HCT 28.5 % (34.0-46.0); HGB 9.1 gm/dL (11.4-16.0); Hypochromasia Moderate; Lymphocytes # (A) 2.1 k/uL (1.0-4.8); Lymphocytes % (A) 37 %; MCHC 31.9 g/dL (31.0-37.0); MCV 84.7 fL (80.0-100.0); Mean Platelet Volume 6.6; Monocytes # (A) 0.5 k/uL (0-1.0); Monocytes % (A) 9 %; Neutrophils # (A) 2.8 k/uL (1.3-7.7); Neutrophils % (A) 50 %; Platelet Count 182 k/uL (150-450); Poikilocytosis Slight; RBC 3.36 m/uL (3.80-5.40); RDW 16.4 % (11.5-15.5); WBC 5.7 k/uL (3.8-10.6)
[2019-11-28 06:43] LABS: Glucose,Whole Blood 97 mg/dL (75-99)
[2019-11-28] MEDS ORDERED: INSULIN ASPART (NovoLOG) 100 UNIT/ML VIAL SQ SCH (07:30)
[2019-11-28] MEDS: INSULIN ASPART (NovoLOG) 100 UNIT/ML VIAL SQ SCH ×4 (08:05→21:00)
[2019-11-28] MEDS: HEPARIN SODIUM,PORCINE 5,000 UNIT/ML 1 ML VIAL SQ SCH (08:15)
[2019-11-28] MEDS: FUROSEMIDE 10 MG/ML 4 ML VIAL IV SCH ×2 (08:15→21:01)
[2019-11-28] MEDS: IPRATROPIUM-ALBUTEROL 3 ML NEB INHALATION SCH ×4 (08:50→19:55)
[2019-11-28 09:26] LABS: African American GFR (CKD) 58.1 (60.0-200.0); Anion Gap 8.6 mmol/L (4.00-12.00); BUN/Creat Ratio 19.09 Ratio (12.00-20.00); Calcium 8.1 mg/dL (8.7-10.3); Carbon Dioxide 27.4 mmol/L (21.6-31.8); Non-African American GFR(CKD) 50.1 (60.0-200.0); Potassium 3.8 mmol/L (3.5-5.5)
[2019-11-28] MEDS ORDERED: traMADol 50 MG TAB PO PRN (10:25)
[2019-11-28] MEDS: CITALOPRAM HYDROBROMIDE 20 MG TAB PO SCH (11:05)
--- NOTE | 2019-11-28 11:09 | P.CRDCN ---
History of Present Illness Consult date: 11/28/19 Consult reason: congestive heart failure Chief complaint: Shortness of breath History of present illness: This is a 74-year-old female with history of advanced COPD/chronic bronchial asthma, on home O2, previous history of pseudomonal pulmonary infections, patient had a recent extended hospitalization, was just discharged from the hospital on October 31. Patient also has a history of paroxysmal atrial fibrillation, diabetes, hypertension, hyperlipidemia, hypothyroidism, GERD, she is never smoked. Presents back to the hospital on this occasion with symptoms of worsening shortness of breath and wheezing. Her chest x-ray on presentation here showed suspicion of possible congestive cardiac failure. EKG showed normal sinus rhythm with left anterior fascicular block and LVH strain pattern. Venous duplex study did not reveal any evidence of a DVT. She had an echocardiogram with Doppler study performed in October of this year which revealed an ejection fraction of 55-60%, moderate to severe tricuspid regurg and moderate to severe pulmonary hypertension. Blood pressure 135/60 with a heart rate in the 60s, temperature 98.1, 90% on 2 L of oxygen. White blood cell count 6.8, hemoglobin 10.1, platelet count 178. Sodium sodium 137, potassium 4.3, BUN 23, creatinine 0.9. Troponins 0.012, 0.013, 0.012. BNP level 372. AST 40, ALT 36. Past Medical History Past Medical History: Atrial Fibrillation, Asthma, Heart Failure, COPD, Diabetes Mellitus, GERD/Reflux, Hearing Disorder / Deafness, Hypertension, Osteoarthritis (OA), Pneumonia, Renal Disease, Thyroid Disorder Additional Past Medical History / Comment(s): HOLE IN RIGHT RETINA. hiatal hernia, anemia, chronic hypoxic respiratory failure, recent pulmonary infection with pseudomonas aeruginosa confirmed via bronchoscopy and the lavage History of Any Multi-Drug Resistant Organisms: Other MDRO Past Surgical History: Cholecystectomy, Hysterectomy Additional Past Surgical History / Comment(s): CATARACT REMOVAL LEFT EYE. Past Anesthesia/Blood Transfusion Reactions: No Reported Reaction Past Psychological History: Anxiety, Panic Disorder Smoking Status: Never smoker Past Alcohol Use History: None Reported Past Drug Use History: None Reported - Past Family History Mother Family Medical History: No Reported History Medications and Allergies Home Medications Medication Instructions Recorded Confirmed Type ALPRAZolam [Xanax] 0.5 mg PO TID 01/16/19 11/27/19 History Alendronate Sodium [Fosamax] 70 mg PO FR 01/16/19 11/27/19 History Citalopram Hydrobromide 40 mg PO DAILY 01/16/19 11/27/19 History [Citalopram HBr] Diltiazem HCl [Diltiazem HCl 24Hr 180 mg PO DAILY 01/16/19 11/27/19 History ER] Ipratropium Nebulized [Atrovent 0.5 mg INHALATION RT-QID 01/16/19 11/27/19 History Nebulized 0.2 MG/ML] Levothyroxine Sodium [Synthroid] 50 mcg PO DAILY 01/16/19 11/27/19 History Losartan [Cozaar] 50 mg PO DAILY 01/16/19 11/27/19 History Lovastatin [Mevacor] 40 mg PO DAILY 01/16/19 11/27/19 History Zafirlukast [Accolate] 20 mg PO BID 01/16/19 11/27/19 History traMADol HCL 50 mg PO TID PRN 01/16/19 11/27/19 History Albuterol Nebulized [Ventolin 2.5 mg INHALATION RT-Q6H PRN 04/26/19 11/27/19 History Nebulized] Warfarin Sodium [Coumadin] 5 mg PO HS 06/28/19 11/27/19 History Albuterol Sulfate [Ventolin HFA] 1 - 2 puff INHALATION RT-Q6H PRN 08/07/19 11/27/19 History Loratadine [Claritin] 10 mg PO DAILY 08/07/19 11/27/19 History Ferrous Sulfate [Iron (65 MG 325 mg PO DAILY #30 tab 08/10/19 11/27/19 Rx Elemental)] guaiFENesin [Mucinex] 600 mg PO Q12HR PRN #14 tablet.er 08/10/19 11/27/19 Rx Insulin Regular, Human [NovoLIN R] See Protocol SQ ACHS MDD 30 UNITS 09/11/19 11/27/19 History Budesonide-Formot 160-4.5 Mcg 2 puff INHALATION RT-BID #1 puff 09/15/19 11/27/19 Rx [Symbicort 160-4.5 Mcg Inhaler] Pantoprazole [Protonix] 40 mg PO AC-BRKFST #30 tablet. 09/15/19 11/27/19 Rx Furosemide [Lasix] 40 mg PO DAILY 10/24/19 11/27/19 History Insulin Glargine [Lantus] 40 unit SQ DAILY #0 11/01/19 11/27/19 Rx Potassium Chloride [Klor-Con 20] 10 meq PO DAILY #0 11/01/19 11/27/19 Rx Multivitamins, Thera [Multivitamin 1 tab PO DAILY 11/27/19 11/27/19 History (formulary)] Allergies Allergy/AdvReac Type Severity Reaction Status Date / Time Iodinated Contrast Media Allergy Unknown, Verified 11/27/19 17:17 POOR RENAL FUNCTIONS Sulfa (Sulfonamide Allergy Unknown Verified 11/27/19 17:17 Antibiotics) latex AdvReac Rash/Hives Verified 11/27/19 17:17 Penicillins AdvReac Rash/Hives Verified 11/27/19 17:17 Physical Exam Vitals: Vital Signs Temp Pulse Pulse Resp BP BP Pulse Ox 11/28/19 09:02 82 11/28/19 08:50 85 11/28/19 08:00 20 11/28/19 07:00 98.1 F 60 20 135/62 98 11/28/19 03:23 20 11/28/19 02:40 97.7 F 79 157/70 97 11/28/19 00:00 20 11/27/19 20:00 93 20 11/27/19 19:20 98.1 F 90 155/89 96 11/27/19 18:46 98.1 F 93 171/75 95 11/27/19 18:06 97.9 F 86 20 156/67 97 11/27/19 17:00 92 20 184/90 97 11/27/19 15:54 90 11/27/19 15:44 91 20 173/66 98 11/27/19 15:39 90 11/27/19 14:53 98.8 F 100 18 191/74 94 L Intake and Output 11/27/19 11/28/19 11/28/19 22:59 06:59 14:59 Other: # Voids 2 Weight 104.326 kg GENERAL EXAM: Alert, active, pleasant 74-year-old female patient, on 2 L nasal cannula, comfortable in no apparent distress. HEAD: Normocephalic. EYES: Normal reaction of pupils, equal size. NOSE: Clear with pink turbinates. THROAT: No erythema or exudates. NECK: No masses, no JVD. CHEST: No chest wall deformity. LUNGS: Equal air entry with bilateral end expiratory wheeze, scattered rhonchi, diminished CVS: S1 and S2 normal with no audible murmur, regular rhythm. ABDOMEN: No hepatosplenomegaly, normal bowel sounds, no guarding or rigidity. SPINE: No scoliosis or deformity SKIN: No rashes CENTRAL NERVOUS SYSTEM: No focal deficits, tone is normal in all 4 extremities. EXTREMITIES: There is 1-2+ bilateral peripheral edema. Redness noted to bilate ral lower extremities, left leg greater than right. No clubbing, no cyanosis. Peripheral pulses are intact. Results 11/28/19 05:26 11/28/19 05:26 Cardiac Enzymes 11/27/19 11/27/19 11/27/19 Range/Units 15:36 15:36 18:29 AST 40 H (14-36) U/L Troponin I <0.012 0.013 (0.000-0.034) ng/mL 11/27/19 Range/Units 22:11 AST (14-36) U/L Troponin I <0.012 (0.000-0.034) ng/mL Coagulation 11/27/19 Range/Units 15:36 PT 28.3 H (9.0-12.0) sec APTT 42.8 H (22.0-30.0) sec CBC 11/27/19 11/28/19 Range/Units 15:36 05:26 WBC 6.8 5.7 (3.8-10.6) k/uL RBC 3.72 L 3.36 L (3.80-5.40) m/uL Hgb 10.1 L 9.1 L (11.4-16.0) gm/dL Hct 31.5 L 28.5 L (34.0-46.0) % Plt Count 178 182 (150-450) k/uL Comprehensive Metabolic Panel 11/27/19 11/28/19 Range/Units 15:36 05:26 Sodium 137 141 (137-145) mmol/L Potassium 4.3 3.8 (3.5-5.1) mmol/L Chloride 104 105 (98-107) mmol/L Carbon Dioxide 28 27.4 (22-30) mmol/L BUN 23 H 21.0 (7-17) mg/dL Creatinine 0.92 1.1 (0.52-1.04) mg/dL Glucose 189 H 90 (74-99) mg/dL Calcium 8.6 8.1 L (8.4-10.2) mg/dL AST 40 H (14-36) U/L ALT 36 H (4-34) U/L Alkaline Phosphatase 77 (38-126) U/L Total Protein 6.6 (6.3-8.2) g/dL Albumin 3.6 (3.5-5.0) g/dL Current Medications Generic Name Dose Route Start Last Admin Trade Name Freq PRN Reason Stop Dose Admin Albuterol/Ipratropium 3 ml 11/28/19 08:36 11/28/19 08:50 Ipratropium-Albuterol 3 Ml Neb INHALATION 3 ml RT-QID JS Administration Alprazolam 0.5 mg 11/28/19 16:00 Alprazolam 0.5 Mg Tab PO TID PRN Anxiety Citalopram Hydrobromide 40 mg 11/28/19 10:30 Citalopram Hydrobromide 20 Mg Tab PO DAILY JS Diltiazem HCl 180 mg 11/29/19 09:00 Diltiazem Cd 180 Mg Cap.Er.24h PO DAILY JS Ferrous Sulfate 325 mg 11/29/19 09:00 Ferrous Sulfate 325 Mg Tab PO DAILY JS Furosemide 40 mg 11/28/19 09:00 11/28/19 08:15 Furosemide 10 Mg/Ml 4 Ml Vial IV 40 mg Q12HR JS Administration Heparin Sodium (Porcine) 5,000 unit 11/28/19 00:00 11/28/19 08:15 Heparin Sodium,Porcine 5,000 Unit/Ml 1 Ml Vial SQ 5,000 unit Q8HR JS Administration Cefepime HCl 2 gm/ Sodium 100 mls @ 25 mls/hr 11/29/19 09:00 Chloride IVPB Q12HR JS Cefepime HCl 2 gm/ Sodium 100 mls @ 200 mls/hr 11/28/19 21:00 Chloride IVPB 11/28/19 21:29 ONCE ONE Insulin Aspart 0 unit 11/27/19 22:08 11/28/19 08:05 Insulin Aspart (Novolog) 100 Unit/Ml Vial SQ Not Given ACHS [facility] Protocol Insulin Detemir 40 unit 11/29/19 07:00 Insulin Detemir (Levemir) 100 Unit/Ml Syr SQ DAILY@0700 [facility] Levothyroxine Sodium 50 mcg 11/29/19 06:30 Levothyroxine 50 Mcg Tab PO DAILY@0630 [facility] Losartan Potassium 50 mg 11/29/19 09:00 Losartan 50 Mg Tab PO DAILY [facility] Miscellaneous Information 0 each 11/28/19 10:33 Warfarin Per Pharmacy MISCELLANE DIRECTED PRN per protocol Multivitamins 1 each 11/29/19 09:00 Multivitamins, Thera 1 Each Tab PO DAILY [facility] Naloxone HCl 0.2 mg 11/27/19 16:38 Naloxone 0.4 Mg/Ml 1 Ml Vial IV Q2M PRN Opioid Reversal Pantoprazole Sodium 40 mg 11/29/19 07:30 Pantoprazole 40 Mg Tablet PO AC-BRKFST [facility] Tramadol HCl 50 mg 11/28/19 10:25 Tramadol 50 Mg Tab PO TID PRN Pain Warfarin Sodium 5 mg 11/28/19 21:00 Warfarin 5 Mg Tab PO HS [facility] Protocol Intake and Output 11/27/19 11/28/19 11/28/19 22:59 06:59 14:59 Other: # Voids 2 Weight 104.326 kg 11/28/19 05:26 11/28/19 05:26 EKG Interpretations (text) EKG shows a normal sinus rhythm with left anterior fascicular block, LVH strain pattern Assessment and Plan Plan: Assessment and plan: #1. 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 Cultures this past admission did reveal pseudomonas aeruginosa again, currently on meropenem. Mild congestive cardiac failure, diastolic acute on chronic. Chest x-ray this admission shows developing congestive heart failure. On IV Lasix and IV antibiotics #2. Chronic hypoxic respiratory failure related to advanced COPD, on 2 L of oxygen #3. 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 Paroxysmal atrial fibrillation on Coumadin currently in sinus mechanism, INR therapeutic at 2.9 #5. Diabetes mellitus type 2 #6. Chronic kidney disease, stage II #7. Hypertension #8. Osteoarthritis #9. Hypothyroidism #10 mildly elevated liver enzymes Plan Patient had an echo performed on October 29 which revealed an ejection fraction of 55-60%, moderate to severe TR and moderate to severe pulmonary hypertension, we will not repeat an echo on this admission. Continue current dose of IV Lasix monitoring intake and output along with daily weights closely. Check daily PT/INRs. Abnormal liver function may be secondary to congestion, if those numbers normalize we will consider adding a statin being that the patient is a diabetic. Further recommendations to follow. DNP note has been reviewed, I agree with a documented findings and plan of care. Patient was seen and examined.
[2019-11-28 11:44] LABS: INR 2.7 (<1.2); Prothrombin Time 26.6 sec (9.0-12.0)
[2019-11-28 11:49] LABS: Glucose,Whole Blood 206 mg/dL (75-99)
--- NOTE | 2019-11-28 14:00 | P.CNPUL ---
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 The patient has had multiple hospitalization for exacerbation of her COPD/asthma. She also has chronic atrial fibrillation maintained on long- term medical condition with warfarin. She has congestion heart failure, diabetes mellitus type 2, hypertension and hypothyroidism and she is obese with a BMI of 39.5. The patient was last hospitalized and October 2023 and acute exacerbation of COPD/asthma and she was diagnosed having a tracheal bronchitis related to pseudomonas aeruginosa. The cultures from the sputum again grew pseudomonas aeruginosa and a chest x-ray showed a diffuse interstitial infiltrate bilaterally with some background chronic interstitial changes/fibrosis. The patient had a bronchoscopy on 10/31/2019 and the lavage was consistent with Pseudomonas species. Nevertheless, prior cultures have also grown pseudomonas including the ones from 10/24/2019, 09/12/2019, 06/30/2019, 04/27/2019, and 01/19/2019. Note that following her most recent hospitalization, the patient completed a 2 week course of IV Merrem on outpatient basis. She came into the ED yesterday complaining of increased s hortness of breath and cough and congestion. She also had increased swelling in the lower extremities bilaterally along with some increased in warmth and redness in the left lower extremity. Based on that, the patient was hospitalized for treatment of her shortness of breath and possible cellulitis. The patient white cell count of 5.7. The PT/INR was therapeutic with an INR of 2.7 as the patient on long-term medical condition with warfarin. She had a stable renal function. Troponin was negative. White cell count is not elevated. Note that the patient has also gained some weight and has some fluid retention since her last evaluation. No fever. Her coronavirus Covid 19 evaluation that was done during early hospitalization were all negative. Review of Systems Constitutional: Denies chills, Denies fever Eyes: denies blurred vision, denies pain Ears, nose, mouth and throat: Denies headache, Denies sore throat Cardiovascular: Denies chest pain, admits to have worsening shortness of breath Respiratory: Reports congestion, Reports dyspnea, Reports home oxygen, Reports respiratory infections, Reports wheezing, admits to have a congested cough along with wheeze Gastrointestinal: Denies abdominal pain, Denies diarrhea, Denies nausea, Denies vomiting Genitourinary: Denies dysuria, Denies hematuria Musculoskeletal: Denies myalgias Integumentary: Denies pruritus, Denies rash, and the patient had some increased redness in lower extremity bilaterally to suggest colitis more so on the left and the patient also had increased edema lower extremities bilaterally. Neurological: Denies numbness, Denies weakness Psychiatric: Denies anxiety, Denies depression Endocrine: Denies fatigue, Denies weight change Past Medical History Past Medical History: Atrial Fibrillation, Asthma, Heart Failure, COPD, Diabetes Mellitus, GERD/Reflux, Hearing Disorder / Deafness, Hypertension, Osteoarthritis (OA), Pneumonia, Renal Disease, Thyroid Disorder Additional Past Medical History / Comment(s): HOLE IN RIGHT RETINA. hiatal hernia, anemia, chronic hypoxic respiratory failure, recent pulmonary infection with pseudomonas aeruginosa confirmed via bronchoscopy and the lavage History of Any Multi-Drug Resistant Organisms: Other MDRO Past Surgical History: Cholecystectomy, Hysterectomy Additional Past Surgical History / Comment(s): CATARACT REMOVAL LEFT EYE. Past Anesthesia/Blood Transfusion Reactions: No Reported Reaction Past Psychological History: Anxiety, Panic Disorder Smoking Status: Never smoker Past Alcohol Use History: None Reported Past Drug Use History: None Reported - Past Family History Mother Family Medical History: No Reported History Medications and Allergies Home Medications Medication Instructions Recorded Confirmed Type ALPRAZolam [Xanax] 0.5 mg PO TID 01/16/19 11/27/19 History Alendronate Sodium [Fosamax] 70 mg PO FR 01/16/19 11/27/19 History Citalopram Hydrobromide 40 mg PO DAILY 01/16/19 11/27/19 History [Citalopram HBr] Diltiazem HCl [Diltiazem HCl 24Hr 180 mg PO DAILY 01/16/19 11/27/19 History ER] Ipratropium Nebulized [Atrovent 0.5 mg INHALATION RT-QID 01/16/19 11/27/19 History Nebulized 0.2 MG/ML] Levothyroxine Sodium [Synthroid] 50 mcg PO DAILY 01/16/19 11/27/19 History Losartan [Cozaar] 50 mg PO DAILY 01/16/19 11/27/19 History Lovastatin [Mevacor] 40 mg PO DAILY 01/16/19 11/27/19 History Zafirlukast [Accolate] 20 mg PO BID 01/16/19 11/27/19 History traMADol HCL 50 mg PO TID PRN 01/16/19 11/27/19 History Albuterol Nebulized [Ventolin 2.5 mg INHALATION RT-Q6H PRN 04/26/19 11/27/19 History Nebulized] Warfarin Sodium [Coumadin] 5 mg PO HS 06/28/19 11/27/19 History Albuterol Sulfate [Ventolin HFA] 1 - 2 puff INHALATION RT-Q6H PRN 08/07/19 11/27/19 History Loratadine [Claritin] 10 mg PO DAILY 08/07/19 11/27/19 History Ferrous Sulfate [Iron (65 MG 325 mg PO DAILY #30 tab 08/10/19 11/27/19 Rx Elemental)] guaiFENesin [Mucinex] 600 mg PO Q12HR PRN #14 tablet.er 08/10/19 11/27/19 Rx Insulin Regular, Human [NovoLIN R] See Protocol SQ ACHS MDD 30 UNITS 09/11/19 11/27/19 History Budesonide-Formot 160-4.5 Mcg 2 puff INHALATION RT-BID #1 puff 09/15/19 11/27/19 Rx [Symbicort 160-4.5 Mcg Inhaler] Pantoprazole [Protonix] 40 mg PO AC-BRKFST #30 tablet. 09/15/19 11/27/19 Rx Furosemide [Lasix] 40 mg PO DAILY 10/24/19 11/27/19 History Insulin Glargine [Lantus] 40 unit SQ DAILY #0 11/01/19 11/27/19 Rx Potassium Chloride [Klor-Con 20] 10 meq PO DAILY #0 11/01/19 11/27/19 Rx Multivitamins, Thera [Multivitamin 1 tab PO DAILY 11/27/19 11/27/19 History (formulary)] Allergies Allergy/AdvReac Type Severity Reaction Status Date / Time Iodinated Contrast Media Allergy Unknown, Verified 11/27/19 17:17 POOR RENAL FUNCTIONS Sulfa (Sulfonamide Allergy Unknown Verified 11/27/19 17:17 Antibiotics) latex AdvReac Rash/Hives Verified 10/06/20 17:17 Penicillins AdvReac Rash/Hives Verified 11/27/19 17:17 Physical Exam Vitals: Vital Signs Temp Pulse Pulse Resp BP BP Pulse Ox 11/28/19 12:57 92 11/28/19 12:47 92 11/28/19 09:02 82 11/28/19 08:50 85 11/28/19 08:00 20 11/28/19 07:00 98.1 F 60 20 135/62 98 11/28/19 03:23 20 11/28/19 02:40 97.7 F 79 157/70 97 11/28/19 00:00 20 11/27/19 20:00 93 20 11/27/19 19:20 98.1 F 90 155/89 96 11/27/19 18:46 98.1 F 93 171/75 95 11/27/19 18:06 97.9 F 86 20 156/67 97 11/27/19 17:00 92 20 184/90 97 11/27/19 15:54 90 11/27/19 15:44 91 20 173/66 98 11/27/19 15:39 90 11/27/19 14:53 98.8 F 100 18 191/74 94 L Intake and Output 11/27/19 11/28/19 11/28/19 22:59 06:59 14:59 Other: # Voids 2 3 Weight 104.326 kg GENERAL EXAM: Alert, very pleasant, 74-year-old white female, on 2 L of oxygen with a pulse ox of 97%, comfortable in no apparent distress. HEAD: Normocephalic/atraumatic. EYES: Normal reaction of pupils, equal size. Conjunctiva pink, sclera white. NOSE: Clear with pink turbinates. THROAT: No erythema or exudates. NECK: No masses, no JVD, no thyroid enlargement, no adenopathy. CHEST: No chest wall deformity. Symmetrical expansion. LUNGS: Equal air entry with some scattered wheezes and rhonchi CVS: Regular rate and rhythm, normal S1 and S2, no gallops, no murmurs, no rubs ABDOMEN: Soft, nontender. No hepatosplenomegaly, normal bowel sounds, no guarding or rigidity. EXTREMITIES: No clubbing, chronic venous stasis changes involving lower extremities, and increase pretibial edema, no cyanosis, 2+ pulses and upper and lower extremities. There may be also some cellulitis in the lower extremities more so on the left as the area between the ankle and the knee on the left is quite warm and erythematous. No open wounds or sores. MUSCULOSKELETAL: Muscle strength and tone normal. SPINE: No scoliosis or deformity SKIN: No rashes CENTRAL NERVOUS SYSTEM: Alert and oriented -3. No focal deficits, tone is normal in all 4 extremities. PSYCHIATRIC: Alert and oriented -3. Appropriate affect. Intact judgment and insight. Results - Laboratory Findings CBC and BMP: 11/28/19 05:26 11/28/19 05:26 PT/INR, D-dimer PT 26.6 sec (9.0-12.0) H 11/28/19 10:58 INR 2.7 (<1.2) H 11/28/19 10:58 Abnormal lab findings: Abnormal Labs 11/27/19 11/27/19 11/27/19 15:36 15:36 15:36 RBC 3.72 L Hgb 10.1 L Hct 31.5 L RDW 16.3 H PT 28.3 H INR 2.9 H APTT 42.8 H BUN 23 H Est GFR (CKD-EPI)AfAm Est GFR (CKD-EPI)NonAf Glucose 189 H POC Glucose (mg/dL) Calcium AST 40 H ALT 36 H 11/27/19 11/28/19 11/28/19 21:31 05:26 05:26 RBC 3.36 L Hgb 9.1 L Hct 28.5 L RDW 16.4 H PT INR APTT BUN Est GFR (CKD-EPI)AfAm 58.1 L Est GFR (CKD-EPI)NonAf 50.1 L Glucose POC Glucose (mg/dL) 178 H Calcium 8.1 L AST ALT 11/28/19 11/28/19 10:58 11:48 RBC Hgb Hct RDW PT 26.6 H INR 2.7 H APTT BUN Est GFR (CKD-EPI)AfAm Est GFR (CKD-EPI)NonAf Glucose POC Glucose (mg/dL) 206 H Calcium AST ALT - Diagnostic Findings Chest x-ray: image reviewed Assessment and Plan Plan: 1. Worsening shortness of breath, multifactorial. The patient obviously has chronic COPD/asthma with chronic colonization/infection with pseudomonas aeruginosa. At the same time, the patient has some signs of fluid overload and increased lower extremity edema. Selective lower extremity cannot be completely excluded 2 cellulitis of the lower extremities, bilateral, in addition to swelling in lower extremities bilaterally. Previous echocardiogram at shown a moderate to severe pulmonary hypertension and right ventricular pressure of 57 and the right ventricular is mildly to moderately enlarged. 3 chronic bronchial asthma 4 COPD 5 chronic hypoxic respiratory failure limited on oxygen 2 L per minute nasal cannula 6 paroxysmal atrial fibrillation with a therapeutic PT/INR and the cardiac rhythm is sinus mechanism 7 diabetes mellitus type 2 8 hypertension 9 hypothyroidism 10 Chronic interstitial changes present on the chest x-ray likely related to underlying pulmonary fibrosis/scarring from previous pulmonary infections 11 chronic pulmonary hypertension moderate to severe with a PA pressure of 57. Plan Start the patient IV cefepime covering for cellulitis and possible pseudomonal lung infections Collect sputum Gram stain and culture IV Lasix 40 mg every 12 hours Resume home medications Continue warfarin and monitor the PT/INR No need for systemic steroids We'll continue to follow
--- NOTE | 2019-11-28 14:19 | P.HPIM ---
History of Present Illness Patient was a 72-year-old female with the 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 Patient also complaining of orthopnea didn't give any history of the proximal nocturnal dyspnea. Patient does have congestive heart failure chronic diastolic dysfunction, patient BNP is only 372. patient does have pedal edema does have severe pulmonary hypertension probably contributed into right heart failure. Is comparing of cough with the LS sputum production. Patient was started on cefepime pulmonary, infectious disease were consulted. Cardiology evaluate the patient as well.. Patient has history of atrial fibrillation for which patient is on Coumadin INR of around 2.7 Review of Systems REVIEW OF SYSTEMS: CONSTITUTIONAL: No fever, no malaise, no fatigue. HEENT: No recent visual problems or hearing problems. Denied any sore throat. CARDIOVASCULAR: No chest pain, orthopnea, PND, no palpitations, no syncope. PULMONARY: As mentioned in HPI GASTROINTESTINAL: No diarrhea, no nausea, no vomiting, no abdominal pain. NEUROLOGICAL: No headaches, no weakness, no numbness. HEMATOLOGICAL: Denies any bleeding or petechiae. GENITOURINARY: Denies any burning micturition, frequency, or urgency. MUSCULOSKELETAL/RHEUMATOLOGICAL: Denies any joint pain, swelling, or any muscle pain. ENDOCRINE: Denies any polyuria or polydipsia. The rest of the 14-point review of systems is negative. Past Medical History Past Medical History: Atrial Fibrillation, Asthma, Heart Failure, COPD, Diabetes Mellitus, GERD/Reflux, Hearing Disorder / Deafness, Hypertension, Osteoarthritis (OA), Pneumonia, Renal Disease, Thyroid Disorder Additional Past Medical History / Comment(s): HOLE IN RIGHT RETINA. hiatal hernia, anemia, chronic hypoxic respiratory failure, recent pulmonary infection with pseudomonas aeruginosa confirmed via bronchoscopy and the lavage History of Any Multi-Drug Resistant Organisms: Other MDRO Past Surgical History: Cholecystectomy, Hysterectomy Additional Past Surgical History / Comment(s): CATARACT REMOVAL LEFT EYE. Past Anesthesia/Blood Transfusion Reactions: No Reported Reaction Past Psychological History: Anxiety, Panic Disorder Smoking Status: Never smoker Past Alcohol Use History: None Reported Past Drug Use History: None Reported - Past Family History Mother Family Medical History: No Reported History Medications and Allergies Home Medications Medication Instructions Recorded Confirmed Type ALPRAZolam [Xanax] 0.5 mg PO TID 01/16/19 11/27/19 History Alendronate Sodium [Fosamax] 70 mg PO FR 01/16/19 11/27/19 History Citalopram Hydrobromide 40 mg PO DAILY 01/16/19 11/27/19 History [Citalopram HBr] Diltiazem HCl [Diltiazem HCl 24Hr 180 mg PO DAILY 01/16/19 11/27/19 History ER] Ipratropium Nebulized [Atrovent 0.5 mg INHALATION RT-QID 01/16/19 11/27/19 History Nebulized 0.2 MG/ML] Levothyroxine Sodium [Synthroid] 50 mcg PO DAILY 01/16/19 11/27/19 History Losartan [Cozaar] 50 mg PO DAILY 01/16/19 11/27/19 History Lovastatin [Mevacor] 40 mg PO DAILY 01/16/19 11/27/19 History Zafirlukast [Accolate] 20 mg PO BID 01/16/19 11/27/19 History traMADol HCL 50 mg PO TID PRN 01/16/19 11/27/19 History Albuterol Nebulized [Ventolin 2.5 mg INHALATION RT-Q6H PRN 04/26/19 11/27/19 History Nebulized] Warfarin Sodium [Coumadin] 5 mg PO HS 06/28/19 11/27/19 History Albuterol Sulfate [Ventolin HFA] 1 - 2 puff INHALATION RT-Q6H PRN 08/07/19 11/27/19 History Loratadine [Claritin] 10 mg PO DAILY 08/07/19 11/27/19 History Ferrous Sulfate [Iron (65 MG 325 mg PO DAILY #30 tab 08/10/19 11/27/19 Rx Elemental)] guaiFENesin [Mucinex] 600 mg PO Q12HR PRN #14 tablet.er 08/10/19 11/27/19 Rx Insulin Regular, Human [NovoLIN R] See Protocol SQ ACHS MDD 30 UNITS 09/11/19 11/27/19 History Budesonide-Formot 160-4.5 Mcg 2 puff INHALATION RT-BID #1 puff 09/15/19 11/27/19 Rx [Symbicort 160-4.5 Mcg Inhaler] Pantoprazole [Protonix] 40 mg PO AC-BRKFST #30 tablet. 09/15/19 11/27/19 Rx Furosemide [Lasix] 40 mg PO DAILY 10/24/19 11/27/19 History Insulin Glargine [Lantus] 40 unit SQ DAILY #0 11/01/19 11/27/19 Rx Potassium Chloride [Klor-Con 20] 10 meq PO DAILY #0 11/01/19 11/27/19 Rx Multivitamins, Thera [Multivitamin 1 tab PO DAILY 11/27/19 11/27/19 History (formulary)] Allergies Allergy/AdvReac Type Severity Reaction Status Date / Time Iodinated Contrast Media Allergy Unknown, Verified 11/27/19 17:17 POOR RENAL FUNCTIONS Sulfa (Sulfonamide Allergy Unknown Verified 11/27/19 17:17 Antibiotics) latex AdvReac Rash/Hives Verified 11/27/19 17:17 Penicillins AdvReac Rash/Hives Verified 11/27/19 17:17 Physical Exam Vitals: Vital Signs Temp Pulse Pulse Resp BP BP Pulse Ox 11/28/19 12:57 92 11/28/19 12:47 92 11/28/19 09:02 82 11/28/19 08:50 85 11/28/19 08:00 20 11/28/19 07:00 98.1 F 60 20 135/62 98 11/28/19 03:23 20 11/28/19 02:40 97.7 F 79 157/70 97 11/28/19 00:00 20 11/27/19 20:00 93 20 11/27/19 19:20 98.1 F 90 155/89 96 11/27/19 18:46 98.1 F 93 171/75 95 11/27/19 18:06 97.9 F 86 20 156/67 97 11/27/19 17:00 92 20 184/90 97 11/27/19 15:54 90 11/27/19 15:44 91 20 173/66 98 11/27/19 15:39 90 11/27/19 14:53 98.8 F 100 18 191/74 94 L Intake and Output 11/27/19 11/28/19 11/28/19 22:59 06:59 14:59 Other: # Voids 2 3 Weight 104.326 kg PHYSICAL EXAMINATION: GENERAL: The patient is alert and oriented x3, not in any acute distress. Well developed, well nourished. HEENT: Pupils are round and equally reacting to light. EOMI. No scleral icterus. No conjunctival pallor. Normocephalic, atraumatic. No pharyngeal erythema. No thyromegaly. CARDIOVASCULAR: S1 and S2 present. No murmurs, rubs, or gallops. PULMONARY: Diffuse bilateral rhonchi. ABDOMEN: Soft, nontender, nondistended, normoactive bowel sounds. No palpable organomegaly. MUSCULOSKELETAL: No joint swelling or deformity. EXTREMITIES: No cyanosis, clubbing, significant bilateral lower extremity edema with the redness and swelling in the left lower extremity with local is of temperature possible cellulitis NEUROLOGICAL: Gross neurological examination did not reveal any focal deficits. SKIN: Possible colitis as mentioned above the left leg Results CBC & Chem 7: 11/28/19 05:26 11/28/19 05:26 Labs: Abnormal Lab Results - Last 24 Hours (Table) 11/27/19 11/27/19 11/27/19 Range/Units 15:36 15:36 15:36 RBC 3.72 L (3.80-5.40) m/uL Hgb 10.1 L (11.4-16.0) gm/dL Hct 31.5 L (34.0-46.0) % RDW 16.3 H (11.5-15.5) % PT 28.3 H (9.0-12.0) sec INR 2.9 H (<1.2) APTT 42.8 H (22.0-30.0) sec BUN 23 H (7-17) mg/dL Est GFR (CKD-EPI)AfAm (60.0-200.0) Est GFR (CKD-EPI)NonAf (60.0-200.0) Glucose 189 H (74-99) mg/dL POC Glucose (mg/dL) (75-99) mg/dL Calcium (8.7-10.3) mg/dL AST 40 H (14-36) U/L ALT 36 H (4-34) U/L 11/27/19 11/28/19 11/28/19 Range/Units 21:31 05:26 05:26 RBC 3.36 L (3.80-5.40) m/uL Hgb 9.1 L (11.4-16.0) gm/dL Hct 28.5 L (34.0-46.0) % RDW 16.4 H (11.5-15.5) % PT (9.0-12.0) sec INR (<1.2) APTT (22.0-30.0) sec BUN (7-17) mg/dL Est GFR (CKD-EPI)AfAm 58.1 L (60.0-200.0) Est GFR (CKD-EPI)NonAf 50.1 L (60.0-200.0) Glucose (74-99) mg/dL POC Glucose (mg/dL) 178 H (75-99) mg/dL Calcium 8.1 L (8.7-10.3) mg/dL AST (14-36) U/L ALT (4-34) U/L 11/28/19 11/28/19 Range/Units 10:58 11:48 RBC (3.80-5.40) m/uL Hgb (11.4-16.0) gm/dL Hct (34.0-46.0) % RDW (11.5-15.5) % PT 26.6 H (9.0-12.0) sec INR 2.7 H (<1.2) APTT (22.0-30.0) sec BUN (7-17) mg/dL Est GFR (CKD-EPI)AfAm (60.0-200.0) Est GFR (CKD-EPI)NonAf (60.0-200.0) Glucose (74-99) mg/dL POC Glucose (mg/dL) 206 H (75-99) mg/dL Calcium (8.7-10.3) mg/dL AST (14-36) U/L ALT (4-34) U/L Thrombosis Risk Factor Assmnt - Choose All That Apply Each Factor Represents 1 point: Abnormal pulmonary function (COPD) Each Risk Factor Represents 2 Points: Age 61-74 years Thrombosis Risk Factor Assessment Total Risk Factor Score: 3 Thrombosis Risk Factor Assessment Level: Moderate Risk Assessment and Plan Plan: -Shadows of breath: Secondary to severe bronchitis, patient is being treated for soreness of thepatient has colonization with Pseudomonas patient may have acute on chronic infection by Pseudomonas. Infectious disease was consulted. Patient does have COPD continue with inhalational treatments. There may be a competent of right-sided heart failure with significant bilateral pedal edema, patient is on Lasix which will be continued for now with close monitoring of kidney function. Patient is presently on cefepime which will be continued -Cellulitis of the left lower extremity with bilateral pedal edema: Patient is on IV vancomycin which will be continued -Chronic bronchial asthma chronic persistent asthma -Chronic hypoxic respiratory failure uses 2 L of onset at home -Proximal A. fib therapy can INR but the INR is expected to go because of the antibiotic she is receiving, we will cut down the dose of Coumadin to 4 mg from 5 mg monitor INR -Type 2 diabetes mellitus -Hypertension #Hypothyroidism -Possible interstitial lung disease
[2019-11-28 17:02] LABS: Glucose,Whole Blood 136 mg/dL (75-99)
[2019-11-28] MEDS ORDERED: WARFARIN 5 MG TAB PO SCH (18:00)
[2019-11-28] MEDS ORDERED: WARFARIN 2 MG TAB PO SCH (18:00)
[2019-11-28] MEDS: SYMBICORT 160-4.5 MCG INHALER INHALATION SCH (19:55)
[2019-11-28 20:32] LABS: Glucose,Whole Blood 188 mg/dL (75-99)
[2019-11-28] MEDS: MONTELUKAST 10 MG TAB PO SCH (21:00)
[2019-11-28] MEDS ORDERED: CEFEPIME 2 GM in SODIUM CHLORIDE 0.9% 100 ML IVPB ONE (21:00)
[2019-11-28] MEDS: ALPRAZolam 0.5 MG TAB PO PRN (21:16)
--- NOTE | 2019-11-28 23:16 | P.CONS ---
History of Present Illness - Reason for Consult Consult date: 11/28/19 Left lower extremity cellulitis Requesting physician: Patrizia Arana - Chief Complaint Left leg pain swelling and redness x few days - History of Present Illness Patient is a 74-year-old female with a past medical history significant for COPD and pseudomonas pneumonia/tracheobronchitis in this patient presented to the hospital with increasing swelling of her left lower extremity along with associated redness and pain patient describes the pain to be more of a dull aching to be throbbing about 5-6 out of 10 and no radiation with the symptom the patient was evaluated by the physician on arrival to the patient did have left lower extremity Doppler that was negative for DVT mild to moderate diffuse of present illness edema noted, the patient has been afebrile and did have a normal white count and chest x-ray recorded for developing congestive heart failure patient had been started on cefepime 2 g every 12 for infectious disease has been consulted for further recommendation regarding antibiotic for her left lower extremity cellulitis Review of Systems Positive point has been mentioned in the HPI rest of the systems are negative Past Medical History Past Medical History: Atrial Fibrillation, Asthma, Heart Failure, COPD, Diabetes Mellitus, GERD/Reflux, Hearing Disorder / Deafness, Hypertension, Osteoarthritis (OA), Pneumonia, Renal Disease, Thyroid Disorder Additional Past Medical History / Comment(s): HOLE IN RIGHT RETINA. hiatal hernia, anemia, chronic hypoxic respiratory failure, recent pulmonary infection with pseudomonas aeruginosa confirmed via bronchoscopy and the lavage History of Any Multi-Drug Resistant Organisms: Other MDRO Past Surgical History: Cholecystectomy, Hysterectomy Additional Past Surgical History / Comment(s): CATARACT REMOVAL LEFT EYE. Past Anesthesia/Blood Transfusion Reactions: No Reported Reaction Past Psychological History: Anxiety, Panic Disorder Smoking Status: Never smoker Past Alcohol Use History: None Reported Past Drug Use History: None Reported - Past Family History Mother Family Medical History: No Reported History Medications and Allergies Home Medications Medication Instructions Recorded Confirmed Type ALPRAZolam [Xanax] 0.5 mg PO TID 01/16/19 11/27/19 History Alendronate Sodium [Fosamax] 70 mg PO FR 01/16/19 11/27/19 History Citalopram Hydrobromide 40 mg PO DAILY 01/16/19 11/27/19 History [Citalopram HBr] Diltiazem HCl [Diltiazem HCl 24Hr 180 mg PO DAILY 01/16/19 11/27/19 History ER] Ipratropium Nebulized [Atrovent 0.5 mg INHALATION RT-QID 01/16/19 11/27/19 Histo ry Nebulized 0.2 MG/ML] Levothyroxine Sodium [Synthroid] 50 mcg PO DAILY 01/16/19 11/27/19 History Losartan [Cozaar] 50 mg PO DAILY 01/16/19 11/27/19 History Lovastatin [Mevacor] 40 mg PO DAILY 01/16/19 11/27/19 History Zafirlukast [Accolate] 20 mg PO BID 01/16/19 11/27/19 History traMADol HCL 50 mg PO TID PRN 01/16/19 11/27/19 History Albuterol Nebulized [Ventolin 2.5 mg INHALATION RT-Q6H PRN 04/26/19 11/27/19 History Nebulized] Warfarin Sodium [Coumadin] 5 mg PO HS 06/28/19 11/27/19 History Albuterol Sulfate [Ventolin HFA] 1 - 2 puff INHALATION RT-Q6H PRN 08/07/19 1 History Loratadine [Claritin] 10 mg PO DAILY 08/07/19 11/27/19 History Ferrous Sulfate [Iron (65 MG 325 mg PO DAILY #30 tab 08/10/19 11/27/19 Rx Elemental)] guaiFENesin [Mucinex] 600 mg PO Q12HR PRN #14 tablet.er 08/10/19 11/27/19 Rx Insulin Regular, Human [NovoLIN R] See Protocol SQ ACHS MDD 30 UNITS 09/11/19 11/27/19 History Budesonide-Formot 160-4.5 Mcg 2 puff INHALATION RT-BID #1 puff 09/15/19 11/27/19 Rx [Symbicort 160-4.5 Mcg Inhaler] Pantoprazole [Protonix] 40 mg PO AC-BRKFST #30 tablet.dr 09/15/19 11/27/19 Rx Furosemide [Lasix] 40 mg PO DAILY 10/24/19 11/27/19 History Insulin Glargine [Lantus] 40 unit SQ DAILY #0 11/01/19 11/27/19 Rx Potassium Chloride [Klor-Con 20] 10 meq PO DAILY #0 11/01/19 11/27/19 Rx Multivitamins, Thera [Multivitamin 1 tab PO DAILY 11/27/19 11/27/19 History (formulary)] Allergies Allergy/AdvReac Type Severity Reaction Status Date / Time Iodinated Contrast Media Allergy Unknown, Verified 11/27/19 17:17 POOR RENAL FUNCTIONS Sulfa (Sulfonamide Allergy Unknown Verified 11/27/19 17:17 Antibiotics) latex AdvReac Rash/Hives Verified 11/27/19 17:17 Penicillins AdvReac Rash/Hives Verified 11/27/19 17:17 Physical Exam Vitals: Vital Signs Temp Pulse Pulse Resp BP Pulse Ox 11/28/19 20:08 88 11/28/19 19:58 88 11/28/19 19:25 98.1 F 87 16 154/71 92 L 11/28/19 16:01 89 11/28/19 15:51 88 11/28/19 15:45 18 11/28/19 15:00 98.3 F 85 18 152/71 97 11/28/19 12:57 92 11/28/19 12:47 92 11/28/19 09:02 82 11/28/19 08:50 85 11/28/19 08:00 20 11/28/19 07:00 98.1 F 60 20 135/62 98 11/28/19 03:23 20 11/28/19 02:40 97.7 F 79 157/70 97 11/28/19 00:00 20 Intake and Output 11/28/19 11/28/19 11/28/19 06:59 14:59 22:59 Intake Total 100 Balance 100 Intake: Oral 100 Other: # Voids 2 3 1 GENERAL DESCRIPTION: An elderly female up in bed, no distress. No tachypnea or accessory muscle of respiration use. HEENT: Shows Pallor , no scleral icterus. Oral mucous membrane is dry. No pharyngeal erythema or thrush NECK: Trachea central, no thyromegaly. LUNGS: Unlabored breathing. Coarse + bilaterally with occasional wheeze no crackle. HEART: S1, S2, regular rate and rhythm. No loud murmur ABDOMEN: Soft, no tenderness , guarding or rigidity, no organomegaly EXTREMITIES: Diffuse swelling bilateral lower extremity left greater than right left leg did have a redness warmth and tender to touch SKIN: No rash, no masses palpable. NEUROLOGICAL: The patient is awake, alert, oriented x3, mood and affect normal. Results CBC & Chem 7: 11/28/19 05:26 11/28/19 05:26 Labs: Abnormal Lab Results - Last 24 Hours (Table) 11/27/19 11/28/19 11/28/19 Range/Units 21:31 05:26 05:26 RBC 3.36 L (3.80-5.40) m/uL Hgb 9.1 L (11.4-16.0) gm/dL Hct 28.5 L (34.0-46.0) % RDW 16.4 H (11.5-15.5) % PT (9.0-12.0) sec INR (<1.2) Est GFR (CKD-EPI)AfAm 58.1 L (60.0-200.0) Est GFR (CKD-EPI)NonAf 50.1 L (60.0-200.0) POC Glucose (mg/dL) 178 H (75-99) mg/dL Calcium 8.1 L (8.7-10.3) mg/dL 11/28/19 11/28/19 11/28/19 Range/Units 10:58 11:48 17:00 RBC (3.80-5.40) m/uL Hgb (11.4-16.0) gm/dL Hct (34.0-46.0) % RDW (11.5-15.5) % PT 26.6 H (9.0-12.0) sec INR 2.7 H (<1.2) Est GFR (CKD-EPI)AfAm (60.0-200.0) Est GFR (CKD-EPI)NonAf (60.0-200.0) POC Glucose (mg/dL) 206 H 136 H (75-99) mg/dL Calcium (8.7-10.3) mg/dL 11/28/19 Range/Units 20:30 RBC (3.80-5.40) m/uL Hgb (11.4-16.0) gm/dL Hct (34.0-46.0) % RDW (11.5-15.5) % PT (9.0-12.0) sec INR (<1.2) Est GFR (CKD-EPI)AfAm (60.0-200.0) Est GFR (CKD-EPI)NonAf (60.0-200.0) POC Glucose (mg/dL) 188 H (75-99) mg/dL Calcium (8.7-10.3) mg/dL Microbiology - Last 24 Hours (Table) 11/27/19 16:52 Blood Culture - Preliminary Blood No Growth after 24 hours Assessment and Plan Assessment: 1- patient with acute left lower extremity cellulitis in this patient with underlying COPD and possible cor pulmonale with evidence of fluid overload and diffuse cellulitis likely streptococcal cellulitis underlying gram-negative infection such as Pseudomonas cellulitis notextruded in this patient who did have history of recurrent pseudomonas pneumonia 2-Patient with multiple antibiotic ALLERGIES that would limit the number of ant ibiotic safe to use (1) Allergy to multiple antibiotics Current Visit: Yes Status: Acute Code(s): Z88.1 - ALLERGY STATUS TO OTHER ANTIBIOTIC AGENTS STATUS SNOMED Code(s): 544986061 (2) Left leg cellulitis Current Visit: Yes Status: Acute Code(s): L03.116 - CELLULITIS OF LEFT LOWER LIMB SNOMED Code(s): 512537363 Plan: 1- cefepime 2 g every 12 hours 2- Rickie wrap to the left leg from just above the toe to below the knee We will follow on clinical condition and cultures to further adjust medication if needed Thank you for this consultation will follow this patient with you Time with Patient: Greater than 30
[2019-11-29] MEDS: LEVOTHYROXINE 50 MCG TAB PO SCH (05:45)
[2019-11-29] MEDS: IPRATROPIUM-ALBUTEROL 3 ML NEB INHALATION SCH ×4 (05:57→20:07)
[2019-11-29 06:44] LABS: Anisocytosis Slight; HCT 29.9 % (34.0-46.0); HGB 9.4 gm/dL (11.4-16.0); Hypochromasia Moderate; MCH 26.3 pg (25.0-35.0); MCHC 31.5 g/dL (31.0-37.0); MCV 83.7 fL (80.0-100.0); Mean Platelet Volume 7.2; Platelet Count 195 k/uL (150-450); Poikilocytosis Slight; RBC 3.58 m/uL (3.80-5.40); RDW 16.3 % (11.5-15.5); WBC 6.7 k/uL (3.8-10.6)
[2019-11-29 06:47] LABS: Glucose,Whole Blood 217 mg/dL (75-99)
[2019-11-29] MEDS: INSULIN DETEMIR (LEVEMIR) 100 UNIT/ML SYR SQ SCH (07:23)
[2019-11-29] MEDS: FUROSEMIDE 10 MG/ML 4 ML VIAL IV SCH ×2 (07:23→20:49)
[2019-11-29] MEDS: INSULIN ASPART (NovoLOG) 100 UNIT/ML VIAL SQ SCH ×4 (07:23→20:31)
[2019-11-29] MEDS: PANTOPRAZOLE 40 MG TABLET PO SCH (07:23)
[2019-11-29] MEDS: MULTIVITAMINS, THERA 1 EACH TAB PO SCH (07:23)
[2019-11-29] MEDS: CEFEPIME 2 GM in SODIUM CHLORIDE 0.9% 100 ML IVPB SCH ×2 (07:23→20:50)
[2019-11-29] MEDS: ATORVASTATIN 10 MG TAB PO SCH (07:23)
[2019-11-29] MEDS: FERROUS SULFATE 325 MG TAB PO SCH (07:24)
[2019-11-29] MEDS: CITALOPRAM HYDROBROMIDE 20 MG TAB PO SCH (07:24)
[2019-11-29] MEDS: LOSARTAN 50 MG TAB PO SCH (07:24)
[2019-11-29] MEDS: DILTIAZEM CD 180 MG CAP.ER.24H PO SCH (07:24)
[2019-11-29] MEDS: SYMBICORT 160-4.5 MCG INHALER INHALATION SCH ×2 (07:48→20:07)
[2019-11-29 09:18] LABS: INR 1.89 (0.90-1.11); Prothrombin Time 19.7 sec (9.9-11.9)
[2019-11-29] MEDS ORDERED: guaiFENesin-DM 100-10MG/5ML 10 ML CUP PO PRN (09:30)
[2019-11-29 10:17] LABS: African American GFR (CKD) 58.1 (60.0-200.0); Anion Gap 10.6 mmol/L (4.00-12.00); BUN/Creat Ratio 22.73 Ratio (12.00-20.00); Carbon Dioxide 30.4 mmol/L (21.6-31.8); Non-African American GFR(CKD) 50.1 (60.0-200.0); Potassium 4.3 mmol/L (3.5-5.5)
[2019-11-29 11:29] LABS: Glucose,Whole Blood 153 mg/dL (75-99)
--- NOTE | 2019-11-29 12:40 | P.PN ---
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 Patient also complaining of orthopnea didn't give any history of the proximal nocturnal dyspnea. Patient does have congestive heart failure chronic diastolic dysfunction, patient BNP is only 372. patient does have pedal edema does have severe pulmonary hypertension probably contributed into right heart failure. Is comparing of cough with the LS sputum production. Patient was started on cefepime pulmonary, infectious disease were consulted. Cardiology evaluate the patient as well.. Patient has history of atrial fibrillation for which patient is on Coumadin INR of around 2.7. 11/29/2019 She is feeling bit better today but still quite a bit rhonchorous and wheezing on exam still has some pedal edema remains on IV Lasix stable creatinine. INR has come down we'll switch her back to her home dose of Coumadin which is 5 mg daily recheck INR. Constitutional: Denied any fatigue denied any fever. Cardio vascular: denied any chest pain, palpitations Gastrointestinal denied any nausea vomiting Pulmonary: As mentioned in the interval history Neurologic denied any new focal deficits All inpatient medications were reviewed and appropriate changes in these medications as dictated in the interval history and assessment and plan. Objective - Vital Signs Vital signs: Vital Signs Temp 97.7 F 11/29/19 07:00 Pulse 88 11/29/19 11:45 Resp 18 11/29/19 07:00 BP 157/73 11/29/19 07:00 Pulse Ox 97 11/29/19 07:00 Intake & Output 11/28/19 11/29/19 11/29/19 18:59 06:59 18:59 Intake Total 300 Balance 300 Intake: Intake, IV Titration 100 Amount Cefepime 2 gm In Sodium 100 Chloride 0.9% 100 ml @ 200 mls/hr IVPB ONCE ONE Rx#:[id number] Oral 200 Other: # Voids 3 2 - Exam PHYSICAL EXAMINATION: GENERAL: The patient is alert and oriented x3, not in any acute distress. Well developed, well nourished. HEENT: Pupils are round and equally reacting to light. EOMI. No scleral icterus. No conjunctival pallor. Normocephalic, atraumatic. No pharyngeal erythema. No thyromegaly. CARDIOVASCULAR: S1 and S2 present. No murmurs, rubs, or gallops. PULMONARY: Diffuse bilateral rhonchi. ABDOMEN: Soft, nontender, nondistended, normoactive bowel sounds. No palpable organomegaly. MUSCULOSKELETAL: No joint swelling or deformity. EXTREMITIES: No cyanosis, clubbing, significant bilateral lower extremity edema with the redness and swelling in the left lower extremity with local is of temperature possible cellulitis NEUROLOGICAL: Gross neurological examination did not reveal any focal deficits. SKIN: Possible colitis as mentioned above the left leg - Labs CBC & Chem 7: 11/29/19 06:22 11/29/19 06:22 Labs: Abnormal Lab Results - Last 24 Hours (Table) 11/28/19 11/28/19 11/29/19 Range/Units 17:00 20:30 06:22 RBC (3.80-5.40) m/uL Hgb (11.4-16.0) gm/dL Hct (34.0-46.0) % RDW (11.5-15.5) % PT 19.7 H (9.9-11.9) sec INR 1.89 H (0.90-1.11) Est GFR (CKD-EPI)AfAm (60.0-200.0) Est GFR (CKD-EPI)NonAf (60.0-200.0) BUN/Creatinine Ratio (12.00-20.00) Ratio Glucose (70-110) mg/dL POC Glucose (mg/dL) 136 H 188 H (75-99) mg/dL Calcium (8.7-10.3) mg/dL 11/29/19 11/29/19 11/29/19 Range/Units 06:22 06:22 06:43 RBC 3.58 L (3.80-5.40) m/uL Hgb 9.4 L (11.4-16.0) gm/dL Hct 29.9 L (34.0-46.0) % RDW 16.3 H (11.5-15.5) % PT (9.9-11.9) sec INR (0.90-1.11) Est GFR (CKD-EPI)AfAm 58.1 L (60.0-200.0) Est GFR (CKD-EPI)NonAf 50.1 L (60.0-200.0) BUN/Creatinine Ratio 22.73 H (12.00-20.00) Ratio Glucose 215 H (70-110) mg/dL POC Glucose (mg/dL) 217 H (75-99) mg/dL Calcium 8.0 L (8.7-10.3) mg/dL 11/29/19 Range/Units 11:27 RBC (3.80-5.40) m/uL Hgb (11.4-16.0) gm/dL Hct (34.0-46.0) % RDW (11.5-15.5) % PT (9.9-11.9) sec INR (0.90-1.11) Est GFR (CKD-EPI)AfAm (60.0-200.0) Est GFR (CKD-EPI)NonAf (60.0-200.0) BUN/Creatinine Ratio (12.00-20.00) Ratio Glucose (70-110) mg/dL POC Glucose (mg/dL) 153 H (75-99) mg/dL Calcium (8.7-10.3) mg/dL Microbiology - Last 24 Hours (Table) 11/27/19 16:52 Blood Culture - Preliminary Blood No Growth after 24 hours Assessment and Plan Plan: -Shadows of breath: Secondary to severe bronchitis, patient is being treated for soreness of thepatient has colonization with Pseudomonas patient may have acute on chronic infection by Pseudomonas. Infectious disease evaluated the patient. Patient does have COPD continue with inhalational treatments. There may be a competent of right-sided heart failure with significant bilateral pedal edema, patient is on Lasix which will be continued for now with close monitoring of kidney function. Patient is presently on cefepime which will be continued -Cellulitis of the left lower extremity with bilateral pedal edema: Infectious disease believe it's mostly streptococcal because of which IV vancomycin was discontinued -Chronic bronchial asthma chronic persistent asthma -Chronic hypoxic respiratory failure uses 2 L of onset at home -Proximal A. fib therapy, INR is on clindamycin increase Coumadin to 5 mg -Type 2 diabetes mellitus -Hypertension #Hypothyroidism -Possible interstitial lung disease
--- NOTE | 2019-11-29 12:58 | P.PN ---
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 The patient has had multiple hospitalization for exacerbation of her COPD/asthma. She also has chronic atrial fibrillation maintained on long- term medical condition with warfarin. She has congestion heart failure, diabetes mellitus type 2, hypertension and hypothyroidism and she is obese with a BMI of 39.5. The patient was last hospitalized and October 2023 and acute exacerbation of COPD/asthma and she was diagnosed having a tracheal bronchitis related to pseudomonas aeruginosa. The cultures from the sputum again grew pseudomonas aeruginosa and a chest x-ray showed a diffuse interstitial infiltrate bilaterally with some background chronic interstitial changes /fibrosis. The patient had a bronchoscopy on 10/31/2019 and the lavage was consistent with Pseudomonas species. Nevertheless, prior cultures have also grown pseudomonas including the ones from 10/24/2019, 09/12/2019, 06/30/2019, 04/27/2019, and 01/19/2019. Note that following her most recent hosp italization, the patient completed a 2 week course of IV Merrem on outpatient basis. She came into the ED yesterday complaining of increased shortness of breath and cough and congestion. She also had increased swelling in the lower extremities bilaterally along with some increased in warmth and redness in the left lower extremity. Based on that, the patient was hospitalized for treatment of her shortness of breath and possible cellulitis. The patient white cell count of 5.7. The PT/INR was therapeutic with an INR of 2.7 as the patient on long-term medical condition with warfarin. She had a stable renal function. Troponin was negative. White cell count is not elevated. Note that the patient has also gained some weight and has some fluid retention since her last evaluation. No fever. Her coronavirus Covid 19 evaluation that was done during early hospitalization were all negative. Patient is seen today November 2019 in follow-up on the regular medical floor. She is currently sitting up in a chair at the bedside. Awake and alert in no acute distress. Breathing easier today compared to yesterday. Lower extremity edema is improved. Less redness. Less swelling. Maintaining good O2 saturations in the mid 90s on 2 L/m nasal cannula. She's afebrile. Blood culture reveals no growth to date. White count 6.7. Hemoglobin 9.4. INR 1.89. Sodium 144. Potassium 4.3. Creatinine 1.1. She remains on cefepime. Continued on bronchodilators. Continued on IV diuretics. Anticoagulated with warfarin. Sputum culture pending. Objective - Vital Signs Vital signs: Vital Signs Temp 97.7 F 11/29/19 07:00 Pulse 88 11/29/19 11:45 Resp 18 11/29/19 07:00 BP 157/73 11/29/19 07:00 Pulse Ox 97 11/29/19 07:00 Intake & Output 11/28/19 11/29/19 11/29/19 18:59 06:59 18:59 Intake Total 300 Balance 300 Intake: Intake, IV Titration 100 Amount Cefepime 2 gm In Sodium 100 Chloride 0.9% 100 ml @ 200 mls/hr IVPB ONCE ONE Rx#:[id number] Oral 200 Other: # Voids 3 2 - Exam GENERAL EXAM: Alert, very pleasant, 74-year-old female patient, on 2 L of oxygen with a pulse ox of 97%, comfortable in no apparent distress. Up in a chair at the bedside HEAD: Normocephalic/atraumatic. EYES: Normal reaction of pupils, equal size. Conjunctiva pink, sclera white. NOSE: Clear with pink turbinates. THROAT: No erythema or exudates. NECK: No masses, no JVD, no thyroid enlargement, no adenopathy. CHEST: No chest wall deformity. Symmetrical expansion. LUNGS: Equal air entry with some scattered wheezes and rhonchi CVS: Regular rate and rhythm, normal S1 and S2, no gallops, no murmurs, no rubs ABDOMEN: Soft, nontender. No hepatosplenomegaly, normal bowel sounds, no guarding or rigidity. EXTREMITIES: No clubbing, chronic venous stasis changes involving lower extremities, and increase pretibial edema, no cyanosis, 2+ pulses and upper and lower extremities. There may be also some cellulitis in the lower extremities more so on the left as the area between the ankle and the knee on the left is quite warm and erythematous. No open wounds or sores. MUSCULOSKELETAL: Muscle strength and tone normal. SPINE: No scoliosis or deformity SKIN: No rashes CENTRAL NERVOUS SYSTEM: Alert and oriented -3. No focal deficits, tone is normal in all 4 extremities. PSYCHIATRIC: Alert and oriented -3. Appropriate affect. Intact judgment and insight. - Labs CBC & Chem 7: 11/29/19 06:22 11/29/19 06:22 Labs: Abnormal Lab Results - Last 24 Hours (Table) 11/28/19 11/28/19 11/29/19 Range/Units 17:00 20:30 06:22 RBC (3.80-5.40) m/uL Hgb (11.4-16.0) gm/dL Hct (34.0-46.0) % RDW (11.5-15.5) % PT 19.7 H (9.9-11.9) sec INR 1.89 H (0.90-1.11) Est GFR (CKD-EPI)AfAm (60.0-200.0) Est GFR (CKD-EPI)NonAf (60.0-200.0) BUN/Creatinine Ratio (12.00-20.00) Ratio Glucose (70-110) mg/dL POC Glucose (mg/dL) 136 H 188 H (75-99) mg/dL Calcium (8.7-10.3) mg/dL 11/29/19 11/29/19 11/29/19 Range/Units 06:22 06:22 06:43 RBC 3.58 L (3.80-5.40) m/uL Hgb 9.4 L (11.4-16.0) gm/dL Hct 29.9 L (34.0-46.0) % RDW 16.3 H (11.5-15.5) % PT (9.9-11.9) sec INR (0.90-1.11) Est GFR (CKD-EPI)AfAm 58.1 L (60.0-200.0) Est GFR (CKD-EPI)NonAf 50.1 L (60.0-200.0) BUN/Creatinine Ratio 22.73 H (12.00-20.00) Ratio Glucose 215 H (70-110) mg/dL POC Glucose (mg/dL) 217 H (75-99) mg/dL Calcium 8.0 L (8.7-10.3) mg/dL 11/29/19 Range/Units 11:27 RBC (3.80-5.40) m/uL Hgb (11.4-16.0) gm/dL Hct (34.0-46.0) % RDW (11.5-15.5) % PT (9.9-11.9) sec INR (0.90-1.11) Est GFR (CKD-EPI)AfAm (60.0-200.0) Est GFR (CKD-EPI)NonAf (60.0-200.0) BUN/Creatinine Ratio (12.00-20.00) Ratio Glucose (70-110) mg/dL POC Glucose (mg/dL) 153 H (75-99) mg/dL Calcium (8.7-10.3) mg/dL Microbiology - Last 24 Hours (Table) 11/27/19 16:52 Blood Culture - Preliminary Blood No Growth after 24 hours Assessment and Plan Assessment: 1. Worsening shortness of breath, multifactorial. The patient obviously has chronic COPD/asthma with chronic colonization/infection with pseudomonas aeruginosa. At the same time, the patient has some signs of fluid overload and increased lower extremity edema. Selective lower extremity cannot be completely excluded 2 cellulitis of the lower extremities, bilateral, in addition to swelling in lower extremities bilaterally. Previous echocardiogram at shown a moderate to severe pulmonary hypertension and right ventricular pressure of 57 and the right ventricular is mildly to moderately enlarged. 3 chronic bronchial asthma 4 COPD 5 chronic hypoxic respiratory failure limited on oxygen 2 L per minute nasal cannula 6 paroxysmal atrial fibrillation with a therapeutic PT/INR and the cardiac rhythm is sinus mechanism 7 diabetes mellitus type 2 8 hypertension 9 hypothyroidism 10 Chronic interstitial changes present on the chest x-ray likely related to underlying pulmonary fibrosis/scarring from previous pulmonary infections 11 chronic pulmonary hypertension moderate to severe with a PA pressure of 57. Plan The patient was seen and evaluated by Dr. Mendiola We'll continue the current treatment plan for now Continue diuretics Obtain sputum sample if possible Remains on cefepime We'll continue to follow I, the cosigning physician, performed a history & physical examination of the patient. Lungs sounds few scattered rhonchi bilaterally. Maintaining good O2 saturations in the 90s on 2 L/m per nasal cannula. I discussed the assessment and plan of care with my nurse practitioner, Su Arias. I attest to the above note as dictated by her.
--- NOTE | 2019-11-29 13:23 | P.PN ---
Subjective Progress Note Date: 11/29/19 This is a 74-year-old female with history of advanced COPD/chronic bronchial asthma, on home O2, previous history of pseudomonal pulmonary infections, patient had a recent extended hospitalization, was just discharged from the hospital on October 31. Patient also has a history of paroxysmal a trial fibrillation, diabetes, hypertension, hyperlipidemia, hypothyroidism, GERD, she is never smoked. Presents back to the hospital on this occasion with symptoms of worsening shortness of breath and wheezing. Her chest x-ray on presentation here showed suspicion of possible congestive cardiac failure. EKG showed normal sinus rhythm with left anterior fascicular block and LVH strain pattern. Venous duplex study did not reveal any evidence of a DVT. She had an echocardiogram with Doppler study performed in October of this year which revealed an ejection fraction of 55-60%, moderate to severe tricuspid regurg and moderate to severe pulmonary hypertension. Blood pressure 135/60 with a heart rate in the 60s, temperature 98.1, 90% on 2 L of oxygen. White blood cell count 6.8, hemoglobin 10.1, platelet count 178. Sodium sodium 137, potassium 4.3, BUN 23, creatinine 0.9. Troponins 0.012, 0.013, 0.012. BNP level 372. AST 40, ALT 36. 11/29/2019 Patient was seen and examined this morning, sitting up in her chair at bedside. Her edema does seem to be improved as compared with yesterday, continues to have tachycardia cough, breathing is improving. Blood culture reveals no growth. We don't have an accurate weight on the patient, no urine output documented. Blood pressure 156/70, heart rate in the 80s, 97% on 2 L of oxygen. White blood cell count 6.7, hemoglobin 9.4, platelet count 195. Sodium 144, potassium 4.3, BUN 25 and creatinine 1.1. Objective - Vital Signs Vital signs: Vital Signs Temp 97.7 F 11/29/19 07:00 Pulse 88 11/29/19 11:45 Resp 18 11/29/19 07:00 BP 157/73 11/29/19 07:00 Pulse Ox 97 11/29/19 07:00 Intake & Output 11/28/19 11/29/19 11/29/19 18:59 06:59 18:59 Intake Total 300 Balance 300 Intake: Intake, IV Titration 100 Amount Cefepime 2 gm In Sodium 100 Chloride 0.9% 100 ml @ 200 mls/hr IVPB ONCE ONE Rx#:[id number] Oral 200 Other: # Voids 3 2 - Exam GENERAL EXAM: Alert, active, pleasant 74-year-old female patient, on 2 L nasal cannula, comfortable in no apparent distress. HEAD: Normocephalic. EYES: Normal reaction of pupils, equal size. NOSE: Clear with pink turbinates. THROAT: No erythema or exudates. NECK: No masses, no JVD. CHEST: No chest wall deformity. LUNGS: Equal air entry with bilateral end expiratory wheeze, scattered rhonchi, air entry improved from yesterday CVS: S1 and S2 normal with no audible murmur, regular rhythm. ABDOMEN: No hepatosplenomegaly, normal bowel sounds, no guarding or rigidity. SPINE: No scoliosis or deformity SKIN: No rashes CENTRAL NERVOUS SYSTEM: No focal deficits, tone is normal in all 4 extremities. EXTREMITIES: There is 1+ bilateral peripheral edema. Redness noted to bilateral lower extremities, left leg greater than right. No clubbing, no cyanosis. Peripheral pulses are intact. - Labs CBC & Chem 7: 11/29/19 06:22 11/29/19 06:22 Labs: Abnormal Lab Results - Last 24 Hours (Table) 11/28/19 11/28/19 11/29/19 Range/Units 17:00 20:30 06:22 RBC (3.80-5.40) m/uL Hgb (11.4-16.0) gm/dL Hct (34.0-46.0) % RDW (11.5-15.5) % PT 19.7 H (9.9-11.9) sec INR 1.89 H (0.90-1.11) Est GFR (CKD-EPI)AfAm (60.0-200.0) Est GFR (CKD-EPI)NonAf (60.0-200.0) BUN/Creatinine Ratio (12.00-20.00) Ratio Glucose (70-110) mg/dL POC Glucose (mg/dL) 136 H 188 H (75-99) mg/dL Calcium (8.7-10.3) mg/dL 11/29/19 11/29/19 11/29/19 Range/Units 06:22 06:22 06:43 RBC 3.58 L (3.80-5.40) m/uL Hgb 9.4 L (11.4-16.0) gm/dL Hct 29.9 L (34.0-46.0) % RDW 16.3 H (11.5-15.5) % PT (9.9-11.9) sec INR (0.90-1.11) Est GFR (CKD-EPI)AfAm 58.1 L (60.0-200.0) Est GFR (CKD-EPI)NonAf 50.1 L (60.0-200.0) BUN/Creatinine Ratio 22.73 H (12.00-20.00) Ratio Glucose 215 H (70-110) mg/dL POC Glucose (mg/dL) 217 H (75-99) mg/dL Calcium 8.0 L (8.7-10.3) mg/dL 11/29/19 Range/Units 11:27 RBC (3.80-5.40) m/uL Hgb (11.4-16.0) gm/dL Hct (34.0-46.0) % RDW (11.5-15.5) % PT (9.9-11.9) sec INR (0.90-1.11) Est GFR (CKD-EPI)AfAm (60.0-200.0) Est GFR (CKD-EPI)NonAf (60.0-200.0) BUN/Creatinine Ratio (12.00-20.00) Ratio Glucose (70-110) mg/dL POC Glucose (mg/dL) 153 H (75-99) mg/dL Calcium (8.7-10.3) mg/dL Microbiology - Last 24 Hours (Table) 11/27/19 16:52 Blood Culture - Preliminary Blood No Growth after 24 hours Assessment and Plan Plan: Assessment and plan: #1. Shortness of breath, likely combination of acute exacerbation of COPD/chronic bronchial asthma, moderately persistent, with recent tracheobronchitis related to Pseudomonas. Cultures this past admission did reveal pseudomonas aeruginosa again, currently on meropenem. Mild congestive cardiac failure, diastolic acute on chronic. Chest x-ray this admission shows developing congestive heart failure. On IV Lasix and IV antibiotics #2. Chronic hypoxic respiratory failure related to advanced COPD, on 2 L of oxygen #3. 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 Paroxysmal atrial fibrillation on Coumadin currently in sinus mechanism, INR therapeutic at 2.9 #5. Diabetes mellitus type 2 #6. Chronic kidney disease, stage II #7. Hypertension #8. Osteoarthritis #9. Hypothyroidism #10 mildly elevated liver enzymes Plan Patient had an echo performed on October 29 which revealed an ejection fraction of 55-60%, moderate to severe TR and moderate to severe pulmonary hypertension, we will not repeat an echo on this admission. Continue current dose of IV Lasix monitoring intake and output along with daily weights closely. Check daily PT/INRs, keep in the range of 2 to 2.5. DNP note has been reviewed, I agree with a documented findings and plan of care. Patient was seen and examined.
[2019-11-29 17:07] LABS: Glucose,Whole Blood 148 mg/dL (75-99)
[2019-11-29 17:13] LABS: Hemoglobin A1C 8.6 % (4.0-6.0)
[2019-11-29] MEDS: WARFARIN 5 MG TAB PO SCH (17:21)
[2019-11-29 17:32] LABS: Albumin 3.6 g/dL (3.80-4.90); Albumin/Globulin Ratio 1.57 (1.60-3.17); Globulin 2.3 g/dL (1.6-3.3); Total Bilirubin 0.3 mg/dL (0.3-1.2); Total Protein 5.9 g/dL (6.2-8.2)
[2019-11-29 20:20] LABS: Glucose,Whole Blood 98 mg/dL (75-99)
[2019-11-29] MEDS: MONTELUKAST 10 MG TAB PO SCH (20:49)
[2019-11-29] MEDS: ALPRAZolam 0.5 MG TAB PO PRN (20:49)
--- NOTE | 2019-11-29 23:54 | PN ---
PROGRESS NOTE DATE OF SERVICE: 11/29/2019 REASON FOR FOLLOWUP: Left lower extremity cellulitis. INTERVAL HISTORY: The patient is currently afebrile. The patient is breathing slightly comfortably. The patient noted to have a cough. No sputum. No nausea, no vomiting. No abdominal pain. Left leg swelling and redness minimally improved. PHYSICAL EXAMINATION: Blood pressure 165/76, pulse of 80, temperature 98. She is 95% on 2 L nasal cannula. General description is an elderly female up in the bed in no distress. RESPIRATORY SYSTEM: Unlabored breathing. Coarse breath sounds bilaterally. HEART: S1, S2. Regular rate and rhythm. Left leg redness minimally improved. No open wound or any drainage. LABS: Hemoglobin 9.4, white count 6.7, BUN of 25, creatinine 1.1. DIAGNOSTIC IMPRESSION AND PLAN: Patient with acute left lower extremity cellulitis in this patient who had evidence of fluid overload and possible cough noted on admission. The patient is currently covered with cefepime, though minimal clinical response. Antibiotic will be switched to cefazolin 2 grams q.8 hours along with Rickie wrap to the leg to keep the swelling down and re-evaluate the leg tomorrow. MMODL / IJN: [id number] /
[2019-11-30] MEDS: IPRATROPIUM-ALBUTEROL 3 ML NEB INHALATION SCH ×5 (00:06→20:17)
[2019-11-30] MEDS: LEVOTHYROXINE 50 MCG TAB PO SCH (05:39)
[2019-11-30 06:58] LABS: Glucose,Whole Blood 114 mg/dL (75-99)
[2019-11-30] MEDS ORDERED: PATIENT'S OWN (Alendronate Sodium [Fosamax] 70 MG Tablet) PO SCH (07:00)
[2019-11-30] MEDS: INSULIN ASPART (NovoLOG) 100 UNIT/ML VIAL SQ SCH ×4 (07:01→21:42)
[2019-11-30] MEDS: LOSARTAN 50 MG TAB PO SCH (07:40)
[2019-11-30] MEDS: INSULIN DETEMIR (LEVEMIR) 100 UNIT/ML SYR SQ SCH (07:40)
[2019-11-30] MEDS: FERROUS SULFATE 325 MG TAB PO SCH (07:40)
[2019-11-30] MEDS: FUROSEMIDE 10 MG/ML 4 ML VIAL IV SCH ×2 (07:40→21:42)
[2019-11-30] MEDS: CITALOPRAM HYDROBROMIDE 20 MG TAB PO SCH (07:40)
[2019-11-30] MEDS: ATORVASTATIN 10 MG TAB PO SCH (07:41)
[2019-11-30] MEDS: DILTIAZEM CD 180 MG CAP.ER.24H PO SCH (07:41)
[2019-11-30] MEDS: MULTIVITAMINS, THERA 1 EACH TAB PO SCH (07:41)
[2019-11-30] MEDS: PANTOPRAZOLE 40 MG TABLET PO SCH (07:41)
[2019-11-30] MEDS: SYMBICORT 160-4.5 MCG INHALER INHALATION SCH ×2 (08:10→20:18)
[2019-11-30 09:23] LABS: INR 1.76 (0.90-1.11); Prothrombin Time 18.4 sec (9.9-11.9)
[2019-11-30 10:14] LABS: African American GFR (CKD) 52.3 (60.0-200.0); BUN/Creat Ratio 22.5 Ratio (12.00-20.00); Calcium 8.6 mg/dL (8.7-10.3); Non-African American GFR(CKD) 45.1 (60.0-200.0); Potassium 4.2 mmol/L (3.5-5.5)
[2019-11-30 11:25] LABS: Glucose,Whole Blood 171 mg/dL (75-99)
--- NOTE | 2019-11-30 12:19 | P.PN ---
Subjective Progress Note Date: 11/30/19 This is a 74-year-old female with history of advanced COPD/chronic bronchial asthma, on home O2, previous history of pseudomonal pulmonary infections, patient had a recent extended hospitalization, was just discharged from the hospital on October 31. Patient also has a history of paroxysmal a trial fibrillation, diabetes, hypertension, hyperlipidemia, hypothyroidism, GERD, she is never smoked. Presents back to the hospital on this occasion with symptoms of worsening shortness of breath and wheezing. Her chest x-ray on presentation here showed suspicion of possible congestive cardiac failure. EKG showed normal sinus rhythm with left anterior fascicular block and LVH strain pattern. Venous duplex study did not reveal any evidence of a DVT. She had an echocardiogram with Doppler study performed in October of this year which revealed an ejection fraction of 55-60%, moderate to severe tricuspid regurg and moderate to severe pulmonary hypertension. Blood pressure 135/60 with a heart rate in the 60s, temperature 98.1, 90% on 2 L of oxygen. White blood cell count 6.8, hemoglobin 10.1, platelet count 178. Sodium sodium 137, potassium 4.3, BUN 23, creatinine 0.9. Troponins 0.012, 0.013, 0.012. BNP level 372. AST 40, ALT 36. 11/29/2019 Patient was seen and examined this morning, sitting up in her chair at bedside. Her edema does seem to be improved as compared with yesterday, continues to have tachycardia cough, breathing is improving. Blood culture reveals no growth. We don't have an accurate weight on the patient, no urine output documented. Blood pressure 156/70, heart rate in the 80s, 97% on 2 L of oxygen. White blood cell count 6.7, hemoglobin 9.4, platelet count 195. Sodium 144, potassium 4.3, BUN 25 and creatinine 1.1. 11/30/2019 Patient seen and examined this morning, diuresed well through the night last night. Blood pressure 158/80 with a heart rate in the 70s, 99% on 3 L of oxygen. Pro time 18.4 with an INR of 1.7, sodium 140, potassium 4.2, BUN 27 and creatinine 1.2. Objective - Vital Signs Vital signs: Vital Signs Temp 98.0 F 11/30/19 07:00 Pulse 84 11/30/19 11:30 Resp 18 11/30/19 07:00 BP 159/80 11/30/19 07:00 Pulse Ox 99 11/30/19 07:00 Intake & Output 11/29/19 11/30/19 11/30/19 18:59 06:59 18:59 Output Total 1150 110 Balance -1150 -110 Weight 110.6 kg Output: Urine 1150 110 Other: # Voids 4 - Exam GENERAL EXAM: Alert, active, pleasant 74-year-old female patient, on 2 L nasal cannula, comfortable in no apparent distress. HEAD: Normocephalic. EYES: Normal reaction of pupils, equal size. NOSE: Clear with pink turbinates. THROAT: No erythema or exudates. NECK: No masses, no JVD. CHEST: No chest wall deformity. LUNGS: Equal air entry with bilateral end expiratory wheeze, scattered rhonchi, air entry improved from yesterday CVS: S1 and S2 normal with no audible murmur, regular rhythm. ABDOMEN: No hepatosplenomegaly, normal bowel sounds, no guarding or rigidity. SPINE: No scoliosis or deformity SKIN: No rashes CENTRAL NERVOUS SYSTEM: No focal deficits, tone is normal in all 4 extremities. EXTREMITIES: There is 1+ bilateral peripheral edema. Redness noted to bilateral lower extremities, left leg greater than right. No clubbing, no cyanosis. Peripheral pulses are intact. - Labs CBC & Chem 7: 11/29/19 06:22 11/30/19 06:23 Labs: Abnormal Lab Results - Last 24 Hours (Table) 11/29/19 11/29/19 11/29/19 Range/Units 06:22 06:22 17:05 PT (9.9-11.9) sec INR (0.90-1.11) Est GFR (CKD-EPI)AfAm (60.0-200.0) Est GFR (CKD-EPI)NonAf (60.0-200.0) BUN/Creatinine Ratio (12.00-20.00) Ratio Glucose (70-110) mg/dL POC Glucose (mg/dL) 148 H (75-99) mg/dL Hemoglobin A1c 8.6 H (4.0-6.0) % Calcium (8.7-10.3) mg/dL Total Protein 5.9 L (6.2-8.2) g/dL Albumin 3.60 L (3.80-4.90) g/dL Albumin/Globulin Ratio 1.57 L (1.60-3.17) g/dL 11/30/19 11/30/19 11/30/19 Range/Units 06:23 06:23 06:57 PT 18.4 H (9.9-11.9) sec INR 1.76 H (0.90-1.11) Est GFR (CKD-EPI)AfAm 52.3 L (60.0-200.0) Est GFR (CKD-EPI)NonAf 45.1 L (60.0-200.0) BUN/Creatinine Ratio 22.50 H (12.00-20.00) Ratio Glucose 111 H (70-110) mg/dL POC Glucose (mg/dL) 114 H (75-99) mg/dL Hemoglobin A1c (4.0-6.0) % Calcium 8.6 L (8.7-10.3) mg/dL Total Protein (6.2-8.2) g/dL Albumin (3.80-4.90) g/dL Albumin/Globulin Ratio (1.60-3.17) g/dL 11/30/19 Range/Units 11:25 PT (9.9-11.9) sec INR (0.90-1.11) Est GFR (CKD-EPI)AfAm (60.0-200.0) Est GFR (CKD-EPI)NonAf (60.0-200.0) BUN/Creatinine Ratio (12.00-20.00) Ratio Glucose (70-110) mg/dL POC Glucose (mg/dL) 171 H (75-99) mg/dL Hemoglobin A1c (4.0-6.0) % Calcium (8.7-10.3) mg/dL Total Protein (6.2-8.2) g/dL Albumin (3.80-4.90) g/dL Albumin/Globulin Ratio (1.60-3.17) g/dL Microbiology - Last 24 Hours (Table) 11/30/19 00:12 Sputum Culture - Preliminary Sputum 11/27/19 16:52 Blood Culture - Preliminary Blood No Growth after 48 hours Assessment and Plan Plan: Assessment and plan: #1. Shortness of breath, likely combination of acute exacerbation of COPD/chronic bronchial asthma, moderately persistent, with recent tracheobronchitis related to Pseudomonas. Cultures this past admission did reveal pseudomonas aeruginosa again, currently on meropenem. Mild congestive cardiac failure, diastolic acute on chronic. Chest x-ray this admission shows developing congestive heart failure. On IV Lasix and IV antibiotics #2. Chronic hypoxic respiratory failure related to advanced COPD, on 2 L of oxygen #3. 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 Paroxysmal atrial fibrillation on Coumadin currently in sinus mechanism, INR therapeutic at 2.9 #5. Diabetes mellitus type 2 #6. Chronic kidney disease, stage II #7. Hypertension #8. Osteoarthritis #9. Hypothyroidism #10 mildly elevated liver enzymes Plan We will continue current dose of IV Lasix, repeat chest x-ray in the morning. DNP note has been reviewed, I agree with a documented findings and plan of care. Patient was seen and examined.
--- NOTE | 2019-11-30 12:36 | P.PN ---
Subjective Progress Note Date: 11/30/19 Principal diagnosis: Shortness of breath secondary to previous Pseudomonas infection, COPD/asthma exacerbation, fluid volume overload This is a 74-year-old female patient with known history of chronic bronchial asthma/COPD and addition to chronic colonization and infection with Pseudomonas in her lungs. The patient has had multiple hospitalization for exacerbation of her COPD/asthma. She also has chronic atrial fibrillation maintained on long- term medical condition with warfarin. She has congestion heart failure, diabetes mellitus type 2, hypertension and hypothyroidism and she is obese with a BMI of 39.5. The patient was last hospitalized and October 2023 and acute exacerbation of COPD/asthma and she was diagnosed having a tracheal bronchitis related to pseudomonas aeruginosa. The cultures from the sputum again grew pseudomonas aeruginosa and a chest x-ray showed a diffuse interstitial infiltrate bilaterally with some background chronic interstitial changes /fibrosis. The patient had a bronchoscopy on 10/31/2019 and the lavage was consistent with Pseudomonas species. Nevertheless, prior cultures have also grown pseudomonas including the ones from 10/24/2019, 09/12/2019, 06/30/2019, 04/27/2019, and 01/19/2019. Note that following her most recent hosp italization, the patient completed a 2 week course of IV Merrem on outpatient basis. She came into the ED yesterday complaining of increased shortness of breath and cough and congestion. She also had increased swelling in the lower extremities bilaterally along with some increased in warmth and redness in the left lower extremity. Based on that, the patient was hospitalized for treatment of her shortness of breath and possible cellulitis. The patient white cell count of 5.7. The PT/INR was therapeutic with an INR of 2.7 as the patient on long-term medical condition with warfarin. She had a stable renal function. Troponin was negative. White cell count is not elevated. Note that the patient has also gained some weight and has some fluid retention since her last evaluation. No fever. Her coronavirus Covid 19 evaluation that was done during early hospitalization were all negative. Patient is seen today November 2019 in follow-up on the regular medical floor. She is currently sitting up in a chair at the bedside. Awake and alert in no acute distress. Breathing easier today compared to yesterday. Lower extremity edema is improved. Less redness. Less swelling. Maintaining good O2 saturations in the mid 90s on 2 L/m nasal cannula. She's afebrile. Blood culture reveals no growth to date. White count 6.7. Hemoglobin 9.4. INR 1.89. Sodium 144. Potassium 4.3. Creatinine 1.1. She remains on cefepime. Continued on bronchodilators. Continued on IV diuretics. Anticoagulated with warfarin. Sputum culture pending. The patient is seen today 11/30/2019 in follow-up on the regular medical floor. She is sitting up in a chair at the bedside. Awake and alert in no acute distress. Maintaining good O2 saturations in the 90s on 2 L/m per nasal cannula. She's been afebrile. Blood culture reveals no growth. Sputum culture pending. INR 1.76. Sodium 140. Potassium 4.2. Creatinine 1.2. She remains on Lasix 40 mg IV every 12 hours. Currently in a negative balance. Remains on Symbicort, DuoNeb inhalations, Singulair. Currently on cefazolin. Anticoag ulated with warfarin. Objective - Vital Signs Vital signs: Vital Signs Temp 98.0 F 11/30/19 07:00 Pulse 84 11/30/19 11:30 Resp 18 11/30/19 07:00 BP 159/80 11/30/19 07:00 Pulse Ox 99 11/30/19 07:00 Intake & Output 11/29/19 11/30/19 11/30/19 18:59 06:59 18:59 Output Total 1150 110 Balance -1150 -110 Weight 110.6 kg Output: Urine 1150 110 Other: # Voids 4 - Exam GENERAL EXAM: Alert, very pleasant, 74-year-old female patient, on 2 L of oxygen with a pulse ox of 99%, comfortable in no apparent distress. Up in a chair at the bedside HEAD: Normocephalic/atraumatic. EYES: Normal reaction of pupils, equal size. Conjunctiva pink, sclera white. NOSE: Clear with pink turbinates. THROAT: No erythema or exudates. NECK: No masses, no JVD, no thyroid enlargement, no adenopathy. CHEST: No chest wall deformity. Symmetrical expansion. LUNGS: Equal air entry with some scattered wheezes and rhonchi CVS: Regular rate and rhythm, normal S1 and S2, no gallops, no murmurs, no rubs ABDOMEN: Soft, nontender. No hepatosplenomegaly, normal bowel sounds, no guarding or rigidity. EXTREMITIES: No clubbing, chronic venous stasis changes involving lower extremities, and increase pretibial edema, no cyanosis, 2+ pulses and upper and lower extremities. There may be also some cellulitis in the lower extremities more so on the left as the area between the ankle and the knee on the left is quite warm and erythematous. No open wounds or sores. MUSCULOSKELETAL: Muscle strength and tone normal. SPINE: No scoliosis or deformity SKIN: No rashes CENTRAL NERVOUS SYSTEM: No focal deficits, tone is normal in all 4 extremities. PSYCHIATRIC: Alert and oriented -3. Appropriate affect. Intact judgment and insight. - Labs CBC & Chem 7: 11/29/19 06:22 11/30/19 06:23 Labs: Abnormal Lab Results - Last 24 Hours (Table) 11/29/19 11/29/19 11/29/19 Range/Units 06:22 06:22 17:05 PT (9.9-11.9) sec INR (0.90-1.11) Est GFR (CKD-EPI)AfAm (60.0-200.0) Est GFR (CKD-EPI)NonAf (60.0-200.0) BUN/Creatinine Ratio (12.00-20.00) Ratio Glucose (70-110) mg/dL POC Glucose (mg/dL) 148 H (75-99) mg/dL Hemoglobin A1c 8.6 H (4.0-6.0) % Calcium (8.7-10.3) mg/dL Total Protein 5.9 L (6.2-8.2) g/dL Albumin 3.60 L (3.80-4.90) g/dL Albumin/Globulin Ratio 1.57 L (1.60-3.17) g/dL 11/30/19 11/30/19 11/30/19 Range/Units 06:23 06:23 06:57 PT 18.4 H (9.9-11.9) sec INR 1.76 H (0.90-1.11) Est GFR (CKD-EPI)AfAm 52.3 L (60.0-200.0) Est GFR (CKD-EPI)NonAf 45.1 L (60.0-200.0) BUN/Creatinine Ratio 22.50 H (12.00-20.00) Ratio Glucose 111 H (70-110) mg/dL POC Glucose (mg/dL) 114 H (75-99) mg/dL Hemoglobin A1c (4.0-6.0) % Calcium 8.6 L (8.7-10.3) mg/dL Total Protein (6.2-8.2) g/dL Albumin (3.80-4.90) g/dL Albumin/Globulin Ratio (1.60-3.17) g/dL 11/30/19 Range/Units 11:25 PT (9.9-11.9) sec INR (0.90-1.11) Est GFR (CKD-EPI)AfAm (60.0-200.0) Est GFR (CKD-EPI)NonAf (60.0-200.0) BUN/Creatinine Ratio (12.00-20.00) Ratio Glucose (70-110) mg/dL POC Glucose (mg/dL) 171 H (75-99) mg/dL Hemoglobin A1c (4.0-6.0) % Calcium (8.7-10.3) mg/dL Total Protein (6.2-8.2) g/dL Albumin (3.80-4.90) g/dL Albumin/Globulin Ratio (1.60-3.17) g/dL Microbiology - Last 24 Hours (Table) 11/30/19 00:12 Sputum Culture - Preliminary Sputum 11/27/19 16:52 Blood Culture - Preliminary Blood No Growth after 48 hours Assessment and Plan Assessment: 1. Worsening shortness of breath, multifactorial. The patient obviously has chronic COPD/asthma with chronic colonization/infection with pseudomonas aeruginosa. Sputum culture pending. At the same time, the patient has some si gns of fluid overload and increased lower extremity edema. Cellulitis of the lower extremity cannot be completely excluded. Currently on cefazolin. 2 cellulitis of the lower extremities, bilateral, in addition to swelling in lower extremities bilaterally. Previous echocardiogram at shown a moderate to severe pulmonary hypertension and right ventricular pressure of 57 and the right ventricular is mildly to moderately enlarged. 3 chronic bronchial asthma 4 COPD 5 chronic hypoxic respiratory failure limited on oxygen 2 L per minute nasal cannula 6 paroxysmal atrial fibrillation with a therapeutic PT/INR and the cardiac rhythm is sinus mechanism 7 diabetes mellitus type 2 8 hypertension 9 hypothyroidism 10 Chronic interstitial changes present on the chest x-ray likely related to u nderlying pulmonary fibrosis/scarring from previous pulmonary infections 11 chronic pulmonary hypertension moderate to severe with a PA pressure of 57. Plan The patient was seen and evaluated by Dr. Mendiola We'll continue the current treatment plan for now Continue diuretics Sputum culture pending Currently on cefazolin We'll continue to follow I, the cosigning physician, performed a history & physical examination of the patient. Lungs sounds few scattered rhonchi bilaterally. Maintaining good O2 saturations in the 90s on 2 L/m per nasal cannula. I discussed the assessment and plan of care with my nurse practitioner, Su Arias. I attest to the above note as dictated by her.
--- NOTE | 2019-11-30 15:20 | P.PN ---
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 Patient also complaining of orthopnea didn't give any history of the proximal nocturnal dyspnea. Patient does have congestive heart failure chronic diastolic dysf unction, patient BNP is only 372. patient does have pedal edema does have severe pulmonary hypertension probably contributed into right heart failure. Is comparing of cough with the LS sputum production. Patient was started on cefepime pulmonary, infectious disease were consulted. Cardiology evaluate the patient as well.. Patient has history of atrial fibrillation for which patient is on Coumadin INR of around 2.7. 11/29/2019 She is feeling bit better today but still quite a bit rhonchorous and wheezing on exam still has some pedal edema remains on IV Lasix stable creatinine. INR has come down we'll switch her back to her home dose of Coumadin which is 5 mg daily recheck INR. 11/30/2019 Still has pedal edema for which she is receiving diuresis with IV Lasix. Left lower extremity cellulitis clinically improving, is continued on antimicrobial therapy with Ancef. Has some mild expiratory wheezing and scattered rhonchi, 2 L nasal cannula saturating 97%. Her, hemodynamically stable. Constitutional: Denied any fatigue denied any fever. Cardio vascular: denied any chest pain, palpitations Gastrointestinal denied any nausea vomiting Pulmonary: As mentioned in the interval history Neurologic denied any new focal deficits Objective - Vital Signs Vital signs: Vital Signs Temp 97.9 F 11/30/19 14:52 Pulse 78 11/30/19 14:52 Resp 18 11/30/19 14:52 BP 108/70 11/30/19 14:52 Pulse Ox 97 11/30/19 14:52 Intake & Output 11/29/19 11/30/19 11/30/19 18:59 06:59 18:59 Output Total 1150 310 Balance -1150 -310 Weight 110.6 kg Output: Urine 1150 310 Other: # Voids 4 - Exam GENERAL: The patient is alert and oriented x3, not in any acute distress. Well developed, well nourished. HEENT: Pupils are round and equally reacting to light. EOMI. No scleral icterus. No conjunctival pallor. Normocephalic, atraumatic. No pharyngeal erythema. No thyromegaly. CARDIOVASCULAR: S1 and S2 present. No murmurs, rubs, or gallops. PULMONARY: Diffuse bilateral rhonchi. ABDOMEN: Soft, nontender, nondistended, normoactive bowel sounds. No palpable organomegaly. MUSCULOSKELETAL: No joint swelling or deformity. EXTREMITIES: No cyanosis, clubbing, significant bilateral lower extremity edema with the area of cellulitis to left lower extremity which is improving NEUROLOGICAL: Gross neurological examination did not reveal any focal deficits. SKIN: Possible colitis as mentioned above the left leg - Labs CBC & Chem 7: 11/29/19 06:22 11/30/19 06:23 Labs: Abnormal Lab Results - Last 24 Hours (Table) 11/29/19 11/29/19 11/29/19 Range/Units 06:22 06:22 17:05 PT (9.9-11.9) sec INR (0.90-1.11) Est GFR (CKD-EPI)AfAm (60.0-200.0) Est GFR (CKD-EPI)NonAf (60.0-200.0) BUN/Creatinine Ratio (12.00-20.00) Ratio Glucose (70-110) mg/dL POC Glucose (mg/dL) 148 H (75-99) mg/dL Hemoglobin A1c 8.6 H (4.0-6.0) % Calcium (8.7-10.3) mg/dL Total Protein 5.9 L (6.2-8.2) g/dL Albumin 3.60 L (3.80-4.90) g/dL Albumin/Globulin Ratio 1.57 L (1.60-3.17) g/dL 11/30/19 11/30/19 11/30/19 Range/Units 06:23 06:23 06:57 PT 18.4 H (9.9-11.9) sec INR 1.76 H (0.90-1.11) Est GFR (CKD-EPI)AfAm 52.3 L (60.0-200.0) Est GFR (CKD-EPI)NonAf 45.1 L (60.0-200.0) BUN/Creatinine Ratio 22.50 H (12.00-20.00) Ratio Glucose 111 H (70-110) mg/dL POC Glucose (mg/dL) 114 H (75-99) mg/dL Hemoglobin A1c (4.0-6.0) % Calcium 8.6 L (8.7-10.3) mg/dL Total Protein (6.2-8.2) g/dL Albumin (3.80-4.90) g/dL Albumin/Globulin Ratio (1.60-3.17) g/dL 11/30/19 Range/Units 11:25 PT (9.9-11.9) sec INR (0.90-1.11) Est GFR (CKD-EPI)AfAm (60.0-200.0) Est GFR (CKD-EPI)NonAf (60.0-200.0) BUN/Creatinine Ratio (12.00-20.00) Ratio Glucose (70-110) mg/dL POC Glucose (mg/dL) 171 H (75-99) mg/dL Hemoglobin A1c (4.0-6.0) % Calcium (8.7-10.3) mg/dL Total Protein (6.2-8.2) g/dL Albumin (3.80-4.90) g/dL Albumin/Globulin Ratio (1.60-3.17) g/dL Microbiology - Last 24 Hours (Table) 11/30/19 00:12 Sputum Culture - Preliminary Sputum 11/27/19 16:52 Blood Culture - Preliminary Blood No Growth after 48 hours Assessment and Plan Plan: Assessment and plan -Shortness of breath: Secondary to severe bronchitis, patient is continued on bronchodilators. Possible colonization or possible chronic infection with Pseudomonas, cefepime discontinued. Infectious disease evaluated the patient. Patient does have COPD continue with inhalational treatments. -CHF with diastolic dysfunction, possible right-sided heart failure: Continues IV Lasix for pedal edema, closely monitoring renal function. -Cellulitis of the left lower extremity with bilateral pedal edema: Infectious disease believe it's mostly streptococcal because of which IV vancomycin was discontinued, and receiving therapy with Ancef -Chronic bronchial asthma chronic persistent asthma -Chronic hypoxic respiratory failure 2 L nasal cannula which she uses at home -Proximal A. fib therapy, INR subtherapeutic, Coumadin recently increased to 5 -Type 2 diabetes mellitus -Hypertension -Hypothyroidism -Possible interstitial lung disease
[2019-11-30 15:47] LABS: Glucose,Whole Blood 58 mg/dL (75-99)
[2019-11-30 16:07] LABS: Glucose,Whole Blood 82 mg/dL (75-99)
[2019-11-30] MEDS: WARFARIN 5 MG TAB PO SCH (17:20)
--- NOTE | 2019-11-30 18:30 | PN ---
PROGRESS NOTE DATE OF SERVICE: 11/30/2019 REASON FOR FOLLOWUP: Left lower extremity cellulitis. INTERVAL HISTORY: The patient is currently afebrile. Patient is breathing comfortably. The patient denies having any chest pain. No shortness of breath or cough. No nausea, no vomiting. No abdominal pain or diarrhea. Left leg swelling and redness is slightly decreased. PHYSICAL EXAMINATION: Blood pressure 107/87 with a pulse of 73, temperature 97.9. She is 98% on 2 L nasal cannula. General description: The patient is an elderly female up in the chair in no distress. Respiratory system: Unlabored breathing, decreased intensity of breath sounds. Heart S1, S2. Regular rate and rhythm. Abdomen: Soft, no tenderness. Left leg swelling and redness minimally improved. No open wound or any drainage. LABS: Creatinine is 1.2. DIAGNOSTIC IMPRESSION AND PLAN: Patient with left lower extremity cellulitis with diffuse swelling. Likely streptococcal disease. Rickie wrap has been requested, unfortunately not done. We will request again. Continue cefazolin and reevaluate the patient tomorrow. MMODL / IJN: [id number] /
[2019-11-30 21:17] LABS: Glucose,Whole Blood 225 mg/dL (75-99)
[2019-11-30] MEDS: MONTELUKAST 10 MG TAB PO SCH (21:42)
[2019-11-30] MEDS: ALPRAZolam 0.5 MG TAB PO PRN (23:06)
[2019-12-01] MEDS: LEVOTHYROXINE 50 MCG TAB PO SCH (05:41)
[2019-12-01 06:40] LABS: Anisocytosis Slight; HCT 28.2 % (34.0-46.0); HGB 8.6 gm/dL (11.4-16.0); Hypochromasia Moderate; MCH 25.8 pg (25.0-35.0); MCHC 30.5 g/dL (31.0-37.0); MCV 84.7 fL (80.0-100.0); Mean Platelet Volume 6.7; Platelet Count 195 k/uL (150-450); Poikilocytosis Slight; RBC 3.33 m/uL (3.80-5.40); RDW 16.3 % (11.5-15.5); WBC 6.1 k/uL (3.8-10.6)
[2019-12-01 07:00] LABS: Glucose,Whole Blood 103 mg/dL (75-99)
[2019-12-01] MEDS: INSULIN ASPART (NovoLOG) 100 UNIT/ML VIAL SQ SCH ×4 (07:04→21:27)
[2019-12-01] MEDS: CITALOPRAM HYDROBROMIDE 20 MG TAB PO SCH (07:25)
[2019-12-01] MEDS: DILTIAZEM CD 180 MG CAP.ER.24H PO SCH (07:25)
[2019-12-01] MEDS: ATORVASTATIN 10 MG TAB PO SCH (07:25)
[2019-12-01] MEDS: FERROUS SULFATE 325 MG TAB PO SCH (07:25)
[2019-12-01] MEDS: INSULIN DETEMIR (LEVEMIR) 100 UNIT/ML SYR SQ SCH (07:25)
[2019-12-01] MEDS: MULTIVITAMINS, THERA 1 EACH TAB PO SCH (07:26)
[2019-12-01] MEDS: PANTOPRAZOLE 40 MG TABLET PO SCH (07:26)
[2019-12-01] MEDS: FUROSEMIDE 10 MG/ML 4 ML VIAL IV SCH ×2 (07:26→21:27)
[2019-12-01] MEDS: LOSARTAN 50 MG TAB PO SCH (07:26)
--- NOTE | 2019-12-01 07:46 | XR ---
EXAMINATION TYPE: XR chest 1V portable DATE OF EXAM: 12/01/2019 COMPARISON: 11/27/2019 HISTORY: Shortness of breath TECHNIQUE: Single frontal view of the chest is obtained. FINDINGS: The heart is enlarged and there is hyperinflation. Basilar subsegmental changes are seen. Coarsened interstitium. Diffuse osteopenia and arthropathy of the shoulders. IMPRESSION: 1. COPD with chronic underlying interstitial disease. Basilar atelectasis favored over pneumonia. Mil d superimposed interstitial pneumonitis or venous congestion suspected. No interval change.
[2019-12-01] MEDS: IPRATROPIUM-ALBUTEROL 3 ML NEB INHALATION SCH ×4 (08:15→20:11)
[2019-12-01] MEDS: SYMBICORT 160-4.5 MCG INHALER INHALATION SCH ×2 (08:15→20:11)
[2019-12-01 08:57] LABS: INR 1.78 (0.90-1.11); Prothrombin Time 18.6 sec (9.9-11.9)
[2019-12-01 09:55] LABS: African American GFR (CKD) 52.3 (60.0-200.0); Anion Gap 6.9 mmol/L (4.00-12.00); BUN/Creat Ratio 22.5 Ratio (12.00-20.00); Calcium 8.6 mg/dL (8.7-10.3); Carbon Dioxide 30.1 mmol/L (21.6-31.8); Non-African American GFR(CKD) 45.1 (60.0-200.0)
[2019-12-01] MEDS: methylPREDNISolone SOD SUCCI 40 MG/ML 1 ML VIAL IV SCH ×2 (10:47→21:27)
[2019-12-01 11:39] LABS: Glucose,Whole Blood 192 mg/dL (75-99)
--- NOTE | 2019-12-01 11:44 | P.PN ---
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 The patient has had multiple hospitalization for exacerbation of her COPD/asthma. She also has chronic atrial fibrillation maintained on long- term medical condition with warfarin. She has congestion heart failure, diabetes mellitus type 2, hypertension and hypothyroidism and she is obese with a BMI of 39.5. The patient was last hospitalized and October 2023 and acute exacerbation of COPD/asthma and she was diagnosed having a tracheal bronchitis related to pseudomonas aeruginosa. The cultures from the sputum again grew pseudomonas aeruginosa and a chest x-ray showed a diffuse interstitial infiltrate bilaterally with some background chronic interstitial changes /fibrosis. The patient had a bronchoscopy on 10/31/2019 and the lavage was consistent with Pseudomonas species. Nevertheless, prior cultures have also grown pseudomonas including the ones from 10/24/2019, 09/12/2019, 06/30/2019, 04/27/2019, and 01/19/2019. Note that following her most recent hosp italization, the patient completed a 2 week course of IV Merrem on outpatient basis. She came into the ED yesterday complaining of increased shortness of breath and cough and congestion. She also had increased swelling in the lower extremities bilaterally along with some increased in warmth and redness in the left lower extremity. Based on that, the patient was hospitalized for treatment of her shortness of breath and possible cellulitis. The patient white cell count of 5.7. The PT/INR was therapeutic with an INR of 2.7 as the patient on long-term medical condition with warfarin. She had a stable renal function. Troponin was negative. White cell count is not elevated. Note that the patient has also gained some weight and has some fluid retention since her last evaluation. No fever. Her coronavirus Covid 19 evaluation that was done during early hospitalization were all negative. Patient is seen today November 2019 in follow-up on the regular medical floor. She is currently sitting up in a chair at the bedside. Awake and alert in no acute distress. Breathing easier today compared to yesterday. Lower extremity edema is improved. Less redness. Less swelling. Maintaining good O2 saturations in the mid 90s on 2 L/m nasal cannula. She's afebrile. Blood culture reveals no growth to date. White count 6.7. Hemoglobin 9.4. INR 1.89. Sodium 144. Potassium 4.3. Creatinine 1.1. She remains on cefepime. Continued on bronchodilators. Continued on IV diuretics. Anticoagulated with warfarin. Sputum culture pending. The patient is seen today 11/30/2019 in follow-up on the regular medical floor. She is sitting up in a chair at the bedside. Awake and alert in no acute distress. Maintaining good O2 saturations in the 90s on 2 L/m per nasal cannula. She's been afebrile. Blood culture reveals no growth. Sputum culture pending. INR 1.76. Sodium 140. Potassium 4.2. Creatinine 1.2. She remains on Lasix 40 mg IV every 12 hours. Currently in a negative balance. Remains on Symbicort, DuoNeb inhalations, Singulair. Currently on cefazolin. Anticoag ulated with warfarin. The patient is seen today 12/01/2019 in follow-up on the regular medical floor. She remains awake and alert in no acute distress. Currently sitting up in a chair at the bedside. She states she is coughing more today more wheezing. More shortness of breath on exertion. She was scheduled to go home. She is maintaining O2 saturations in the 90s on 2 L/m per nasal cannula. She's been afebrile. Blood and sputum cultures reveal no growth to date. White count 6.1. Hemoglobin 8.6. INR 1.78. Sodium 141. Potassium 4.0. Creatinine 1.2. She is continued on DuoNeb inhalations, Symbicort, IV diuretics. IV Solu-Medrol added again today. Objective - Vital Signs Vital signs: Vital Signs Temp 98.1 F 12/01/19 07:00 Pulse 80 12/01/19 08:26 Resp 20 12/01/19 07:25 BP 136/77 12/01/19 07:00 Pulse Ox 96 12/01/19 07:00 Intake & Output 11/30/19 12/01/19 12/01/19 18:59 06:59 18:59 Output Total 310 900 Balance -310 -900 Weight 110.9 kg Output: Urine 310 900 - Exam GENERAL EXAM: Alert, very pleasant, 74-year-old female patient, on 2 L of oxygen with a pulse ox of 96%, comfortable in no apparent distress. Up in a chair at the bedside HEAD: Normocephalic/atraumatic. EYES: Normal reaction of pupils, equal size. Conjunctiva pink, sclera white. NOSE: Clear with pink turbinates. THROAT: No erythema or exudates. NECK: No masses, no JVD, no thyroid enlargement, no adenopathy. CHEST: No chest wall deformity. Symmetrical expansion. LUNGS: Equal air entry with some scattered wheezes and rhonchi CVS: Regular rate and rhythm, normal S1 and S2, no gallops, no murmurs, no rubs ABDOMEN: Soft, nontender. No hepatosplenomegaly, normal bowel sounds, no guarding or rigidity. EXTREMITIES: No clubbing, chronic venous stasis changes involving lower extremities, and increase pretibial edema, no cyanosis, 2+ pulses and upper and lower extremities. Rickie wraps on bilateral MUSCULOSKELETAL: Muscle strength and tone normal. SPINE: No scoliosis or deformity SKIN: No rashes CENTRAL NERVOUS SYSTEM: No focal deficits, tone is normal in all 4 extremities. PSYCHIATRIC: Alert and oriented -3. Appropriate affect. Intact judgment and insight. - Labs CBC & Chem 7: 12/01/19 06:14 12/01/19 06:14 Labs: Abnormal Lab Results - Last 24 Hours (Table) 11/30/19 11/30/19 12/01/19 Range/Units 15:45 21:15 06:14 RBC (3.80-5.40) m/uL Hgb (11.4-16.0) gm/dL Hct (34.0-46.0) % MCHC (31.0-37.0) g/dL RDW (11.5-15.5) % PT 18.6 H (9.9-11.9) sec INR 1.78 H (0.90-1.11) Est GFR (CKD-EPI)AfAm (60.0-200.0) Est GFR (CKD-EPI)NonAf (60.0-200.0) BUN/Creatinine Ratio (12.00-20.00) Ratio POC Glucose (mg/dL) 58 L 225 H (75-99) mg/dL Calcium (8.7-10.3) mg/dL 12/01/19 12/01/19 12/01/19 Range/Units 06:14 06:14 06:58 RBC 3.33 L (3.80-5.40) m/uL Hgb 8.6 L (11.4-16.0) gm/dL Hct 28.2 L (34.0-46.0) % MCHC 30.5 L (31.0-37.0) g/dL RDW 16.3 H (11.5-15.5) % PT (9.9-11.9) sec INR (0.90-1.11) Est GFR (CKD-EPI)AfAm 52.3 L (60.0-200.0) Est GFR (CKD-EPI)NonAf 45.1 L (60.0-200.0) BUN/Creatinine Ratio 22.50 H (12.00-20.00) Ratio POC Glucose (mg/dL) 103 H (75-99) mg/dL Calcium 8.6 L (8.7-10.3) mg/dL 12/01/19 Range/Units 11:38 RBC (3.80-5.40) m/uL Hgb (11.4-16.0) gm/dL Hct (34.0-46.0) % MCHC (31.0-37.0) g/dL RDW (11.5-15.5) % PT (9.9-11.9) sec INR (0.90-1.11) Est GFR (CKD-EPI)AfAm (60.0-200.0) Est GFR (CKD-EPI)NonAf (60.0-200.0) BUN/Creatinine Ratio (12.00-20.00) Ratio POC Glucose (mg/dL) 192 H (75-99) mg/dL Calcium (8.7-10.3) mg/dL Microbiology - Last 24 Hours (Table) 11/27/19 16:52 Blood Culture - Preliminary Blood No Growth after 72 hours 11/30/19 00:12 Gram Stain - Preliminary Sputum Sputum Culture - Preliminary Assessment and Plan Assessment: 1. Worsening shortness of breath, multifactorial. The patient obviously has c hronic COPD/asthma with chronic colonization/infection with pseudomonas aeruginosa. Sputum culture pending. At the same time, the patient has some signs of fluid overload and increased lower extremity edema. Cellulitis of the lower extremity cannot be completely excluded. Currently on cefazolin. 2 cellulitis of the lower extremities, bilateral, in addition to swelling in lower extremities bilaterally. Previous echocardiogram at shown a moderate to severe pulmonary hypertension and right ventricular pressure of 57 and the right ventricular is mildly to moderately enlarged. 3 chronic bronchial asthma 4 COPD 5 chronic hypoxic respiratory failure limited on oxygen 2 L per minute nasal c annula 6 paroxysmal atrial fibrillation with a therapeutic PT/INR and the cardiac rhythm is sinus mechanism 7 diabetes mellitus type 2 8 hypertension 9 hypothyroidism 10 Chronic interstitial changes present on the chest x-ray likely related to underlying pulmonary fibrosis/scarring from previous pulmonary infections 11 chronic pulmonary hypertension moderate to severe with a PA pressure of 57. Plan The patient was seen and evaluated by Dr. Mendiola Not quite ready for discharge Initiate Solu-Medrol 40 mg IV every 12 hours We'll continue the current treatment plan for now Continue diuretics Sputum culture pending Currently on cefazolin We'll continue to follow I, the cosigning physician, performed a history & physical examination of the patient. Lungs sounds few scattered rhonchi bilaterally. Maintaining good O2 saturations in the 90s on 2 L/m per nasal cannula. I discussed the assessment and plan of care with my nurse practitioner, Su Arias. I attest to the above note as dictated by her.
--- NOTE | 2019-12-01 12:58 | P.PN ---
Subjective Progress Note Date: 12/01/19 This is a 74-year-old female with history of advanced COPD/chronic bronchial asthma, on home O2, previous history of pseudomonal pulmonary infections, patient had a recent extended hospitalization, was just discharged from the hospital on October 31. Patient also has a history of paroxysmal atrial fibrillation, diabetes, hypertension, hyperlipidemia, hypothyroidism, GERD, she is never smoked. Presents back to the hospital on this occasion with symptoms of worsening shortness of breath and wheezing. Her chest x-ray on presentation here showed suspicion of possible congestive cardiac failure. EKG showed normal sinus rhythm with left anterior fascicular block and LVH strain pattern. Venous duplex study did not reveal any evidence of a DVT. She had an echocardiogram with Doppler study performed in October of this year which revealed an ejection fraction of 55-60%, moderate to severe tricuspid regurg and moderate to severe pulmonary hypertension. Blood pressure 135/60 with a heart rate in the 60s, temperature 98.1, 90% on 2 L of oxygen. White blood cell count 6.8, hemoglobin 10.1, platelet count 178. Sodium sodium 137, potassium 4.3, BUN 23, creatinine 0.9. Troponins 0.012, 0.013, 0.012. BNP level 372. AST 40, ALT 36. 11/29/2019 Patient was seen and examined this morning, sitting up in her chair at bedside. Her edema does seem to be improved as compared with yesterday, continues to have tachycardia cough, breathing is improving. Blood culture reveals no growth. We don't have an accurate weight on the patient, no urine output documented. Blood pressure 156/70, heart rate in the 80s, 97% on 2 L of oxygen. White blood cell count 6.7, hemoglobin 9.4, platelet count 195. Sodium 144, potassium 4.3, BUN 25 and creatinine 1.1. 11/30/2019 Patient seen and examined this morning, diuresed well through the night last night. Blood pressure 158/80 with a heart rate in the 70s, 99% on 3 L of oxygen. Pro time 18.4 with an INR of 1.7, sodium 140, potassium 4.2, BUN 27 and creatinine 1.2. 12/01/2019 INR today is at 1.78, hemoglobin 8.6, electrolytes normal as well as creatinine 1.2. Repeat chest x-ray reveals COPD with chronic underlying interstitial disease. Basal atelectasis favored over pneumonia. Mild superimposed interstitial pneumonitis or venous congestion suspected. No interval change. Patient complains of coughing and wheezing and shortness of breath with activity. Pulmonary medicine has initiated Solu-Medrol IV. Patient has been afe brile, Heart rate is in the 80s, blood pressure 136/77, pulse ox 96% on 2 L. She is currently on Lasix 40 mg IV every 12 hours. Objective - Vital Signs Vital signs: Vital Signs Temp 98.1 F 12/01/19 07:00 Pulse 80 12/01/19 12:09 Resp 20 12/01/19 07:25 BP 136/77 12/01/19 07:00 Pulse Ox 96 12/01/19 07:00 Intake & Output 11/30/19 12/01/19 12/01/19 18:59 06:59 18:59 Output Total 310 900 Balance -310 -900 Weight 110.9 kg Output: Urine 310 900 - Exam GENERAL EXAM: Alert, active, pleasant 74-year-old female patient, on 2 L nasal cannula, comfortable in no apparent distress. HEAD: Normocephalic. EYES: Normal reaction of pupils, equal size. NOSE: Clear with pink turbinates. THROAT: No erythema or exudates. NECK: No masses, no JVD. CHEST: No chest wall deformity. LUNGS: Tight bilateral wheezing throughout, scattered rhonchi CVS: S1 and S2 normal with no audible murmur, regular rhythm. ABDOMEN: No hepatosplenomegaly, normal bowel sounds, no guarding or rigidity. SPINE: No scoliosis or deformity SKIN: No rashes CENTRAL NERVOUS SYSTEM: No focal deficits, tone is normal in all 4 extremities. EXTREMITIES: There is 1+ bilateral peripheral edema. Redness noted to bilateral lower extremities, left leg greater than right. No clubbing, no cyan osis. Peripheral pulses are intac - Labs CBC & Chem 7: 12/01/19 06:14 12/01/19 06:14 Labs: Abnormal Lab Results - Last 24 Hours (Table) 11/30/19 11/30/19 12/01/19 Range/Units 15:45 21:15 06:14 RBC (3.80-5.40) m/uL Hgb (11.4-16.0) gm/dL Hct (34.0-46.0) % MCHC (31.0-37.0) g/dL RDW (11.5-15.5) % PT 18.6 H (9.9-11.9) sec INR 1.78 H (0.90-1.11) Est GFR (CKD-EPI)AfAm (60.0-200.0) Est GFR (CKD-EPI)NonAf (60.0-200.0) BUN/Creatinine Ratio (12.00-20.00) Ratio POC Glucose (mg/dL) 58 L 225 H (75-99) mg/dL Calcium (8.7-10.3) mg/dL 12/01/19 12/01/19 12/01/19 Range/Units 06:14 06:14 06:58 RBC 3.33 L (3.80-5.40) m/uL Hgb 8.6 L (11.4-16.0) gm/dL Hct 28.2 L (34.0-46.0) % MCHC 30.5 L (31.0-37.0) g/dL RDW 16.3 H (11.5-15.5) % PT (9.9-11.9) sec INR (0.90-1.11) Est GFR (CKD-EPI)AfAm 52.3 L (60.0-200.0) Est GFR (CKD-EPI)NonAf 45.1 L (60.0-200.0) BUN/Creatinine Ratio 22.50 H (12.00-20.00) Ratio POC Glucose (mg/dL) 103 H (75-99) mg/dL Calcium 8.6 L (8.7-10.3) mg/dL 12/01/19 Range/Units 11:38 RBC (3.80-5.40) m/uL Hgb (11.4-16.0) gm/dL Hct (34.0-46.0) % MCHC (31.0-37.0) g/dL RDW (11.5-15.5) % PT (9.9-11.9) sec INR (0.90-1.11) Est GFR (CKD-EPI)AfAm (60.0-200.0) Est GFR (CKD-EPI)NonAf (60.0-200.0) BUN/Creatinine Ratio (12.00-20.00) Ratio POC Glucose (mg/dL) 192 H (75-99) mg/dL Calcium (8.7-10.3) mg/dL Microbiology - Last 24 Hours (Table) 11/27/19 16:52 Blood Culture - Preliminary Blood No Growth after 72 hours 11/30/19 00:12 Gram Stain - Preliminary Sputum Sputum Culture - Preliminary Assessment and Plan Plan: #1. Shortness of breath, likely combination of acute exacerbation of COPD/chronic bronchial asthma, moderately persistent, with recent tracheobronchitis related to Pseudomonas. Cultures this past admission did reveal pseudomonas aeruginosa again, currently on meropenem. Mild congestive cardiac failure, diastolic acute on chronic. Continue IV Lasix and IV antibiotics #2. Chronic hypoxic respiratory failure related to advanced COPD, on 2 L of oxygen #3. 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 Paroxysmal atrial fibrillation on Coumadin currently in sinus mechanism, INR therapeutic at 1.78 #5. Diabetes mellitus type 2 #6. Chronic kidney disease, stage II #7. Hypertension #8. Osteoarthritis #9. Hypothyroidism #10 mildly elevated liver enzymes Plan We will continue current Lasix 40 mg IV every 12 hours. Pulmonary medicine has initiated IV Solu-Medrol Nurse practitioner note has been reviewed, I agree with documented findings and plan of care. Patient was seen and examined.
--- NOTE | 2019-12-01 15:27 | P.PN ---
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 Patient also complaining of orthopnea didn't give any history of the proximal nocturnal dyspnea. Patient does have congestive heart failure chronic diastolic dysfunction, patient BNP is only 372. patient does have pedal edema does have severe pulmonary hypertension probably contributed into right heart failure. Is comparing of cough with the LS sputum production. Patient was started on cefepime pulmonary, infectious disease were consulted. Cardiology evaluate the patient as well.. Patient has history of atrial fibrillation for which patient is on Coumadin INR of around 2.7. 11/29/2019 She is feeling bit better today but still quite a bit rhonchorous and wheezing on exam still has some pedal edema remains on IV Lasix stable creatinine. INR has come down we'll switch her back to her home dose of Coumadin which is 5 mg daily recheck INR. 11/30/2019 Still has pedal edema for which she is receiving diuresis with IV Lasix. Left lower extremity cellulitis clinically improving, is continued on antimicrobial therapy with Ancef. Has some mild expiratory wheezing and scattered rhonchi, 2 L nasal cannula saturating 97%. Her, hemodynamically stable. 12/01/19 Patient seen on follow-up, still reports some shortness of breath, mainly with exertion, has less wheezing today, receiving IV Solu-Medrol, and bronchodilators. She remains on 2 L nasal cannula saturating above 90%, afebrile, remained hemodynamically stable. Cultures blood and sputum negative. Constitutional: Denied any fatigue denied any fever. Cardio vascular: denied any chest pain, palpitations Gastrointestinal denied any nausea vomiting Pulmonary: Exertional dyspnea Neurologic denied any new focal deficits Objective - Vital Signs Vital signs: Vital Signs Temp 98.1 F 12/01/19 07:00 Pulse 80 12/01/19 12:09 Resp 20 12/01/19 07:25 BP 136/77 12/01/19 07:00 Pulse Ox 96 12/01/19 07:00 Intake & Output 11/30/19 12/01/19 12/01/19 18:59 06:59 18:59 Intake Total 400 Output Total 310 900 Balance -310 -900 400 Weight 110.9 kg Intake: Oral 400 Output: Urine 310 900 - Exam GENERAL: The patient is alert and oriented x3, not in any acute distress. Well d eveloped, well nourished. HEENT: Pupils are round and equally reacting to light. EOMI. No scleral icterus. No conjunctival pallor. Normocephalic, atraumatic. No pharyngeal erythema. No thyromegaly. CARDIOVASCULAR: S1 and S2 present. No murmurs, rubs, or gallops. PULMONARY: Minimal wheezing, improved air entry, scattered rhonchi ABDOMEN: Soft, nontender, nondistended, normoactive bowel sounds. No palpable organomegaly. MUSCULOSKELETAL: No joint swelling or deformity. EXTREMITIES: No cyanosis, clubbing, significant bilateral lower extremity edema with the area of cellulitis to left lower extremity which is improving NEUROLOGICAL: Gross neurological examination did not reveal any focal deficits. SKIN: Possible colitis as mentioned above the left leg - Labs CBC & Chem 7: 12/01/19 06:14 12/01/19 06:14 Labs: Abnormal Lab Results - Last 24 Hours (Table) 11/30/19 11/30/19 12/01/19 Range/Units 15:45 21:15 06:14 RBC (3.80-5.40) m/uL Hgb (11.4-16.0) gm/dL Hct (34.0-46.0) % MCHC (31.0-37.0) g/dL RDW (11.5-15.5) % PT 18.6 H (9.9-11.9) sec INR 1.78 H (0.90-1.11) Est GFR (CKD-EPI)AfAm (60.0-200.0) Est GFR (CKD-EPI)NonAf (60.0-200.0) BUN/Creatinine Ratio (12.00-20.00) Ratio POC Glucose (mg/dL) 58 L 225 H (75-99) mg/dL Calcium (8.7-10.3) mg/dL 12/01/19 12/01/19 12/01/19 Range/Units 06:14 06:14 06:58 RBC 3.33 L (3.80-5.40) m/uL Hgb 8.6 L (11.4-16.0) gm/dL Hct 28.2 L (34.0-46.0) % MCHC 30.5 L (31.0-37.0) g/dL RDW 16.3 H (11.5-15.5) % PT (9.9-11.9) sec INR (0.90-1.11) Est GFR (CKD-EPI)AfAm 52.3 L (60.0-200.0) Est GFR (CKD-EPI)NonAf 45.1 L (60.0-200.0) BUN/Creatinine Ratio 22.50 H (12.00-20.00) Ratio POC Glucose (mg/dL) 103 H (75-99) mg/dL Calcium 8.6 L (8.7-10.3) mg/dL 12/01/19 Range/Units 11:38 RBC (3.80-5.40) m/uL Hgb (11.4-16.0) gm/dL Hct (34.0-46.0) % MCHC (31.0-37.0) g/dL RDW (11.5-15.5) % PT (9.9-11.9) sec INR (0.90-1.11) Est GFR (CKD-EPI)AfAm (60.0-200.0) Est GFR (CKD-EPI)NonAf (60.0-200.0) BUN/Creatinine Ratio (12.00-20.00) Ratio POC Glucose (mg/dL) 192 H (75-99) mg/dL Calcium (8.7-10.3) mg/dL Microbiology - Last 24 Hours (Table) 11/30/19 00:12 Gram Stain - Preliminary Sputum Sputum Culture - Preliminary Gram Neg Bacilli 11/27/19 16:52 Blood Culture - Preliminary Blood No Growth after 72 hours Assessment and Plan Plan: Assessment and plan -Shortness of breath: Secondary to severe bronchitis, . Possible colonization with Pseudomonas, no longer on cefepime. Infectious disease evaluated the patient. continue with patient is continued on bronchodilators, IV steroids, Symbicort. -CHF with diastolic dysfunction, possible right-sided heart failure: Continues IV Lasix for pedal edema, closely monitoring renal function. BMP tomorrow -Cellulitis of the left lower extremity with bilateral pedal edema: Infectious disease believe it's mostly streptococca, improving with antimicrobial therapy with Ancef -Chronic bronchial asthma chronic persistent asthma -Chronic hypoxic respiratory failure 2 L nasal cannula which she uses at home -Proximal A. fib therapy, INR subtherapeutic, Coumadin recently increased to 5 -Type 2 diabetes mellitus: Continue Levemir 40, and NovoLog to scale -Hypertension -Hypothyroidism -Possible interstitial lung disease, chronic interstitial changes present on chest x-ray -Moderate to severe chronic pulmonary hypertension -DVT prophylaxis, on systemic anticoagulation with warfarin
[2019-12-01 17:14] LABS: Glucose,Whole Blood 250 mg/dL (75-99)
[2019-12-01] MEDS ORDERED: WARFARIN 3 MG TAB PO SCH (18:00)
--- NOTE | 2019-12-01 20:37 | PN ---
PROGRESS NOTE DATE OF SERVICE: 12/01/2019 REASON FOR FOLLOWUP: Bilateral lower extremity cellulitis, left greater than right. INTERVAL HISTORY: Patient is currently afebrile. Patient is breathing comfortably. The patient denies having any chest pain. No shortness of breath. No abdominal pain. No diarrhea. PHYSICAL EXAMINATION: Blood pressure is 171/79 with a pulse of 95, temperature 97.7. She is 97% on 2 L nasal cannula. General description is an elderly female up in the bed in no distress. Respiratory system: Unlabored breathing. Heart S1, S2. Regular rate and rhythm. ABDOMEN: Soft, no tenderness. Bilateral lower extremity swelling and redness has decreased. LABS: Hemoglobin 8.8, white count 6.9, BUN of 27, creatinine 1.2. DIAGNOSTIC IMPRESSION AND PLAN: Patient with bilateral lower extremity cellulitis, left greater than right, in this patient that has had overall clinical improvement with the IV cefazolin. Plan is to finish therapy with oral Keflex and monitor clinical course closely. MMODL / IJN: [id number] /
[2019-12-01 21:23] LABS: Glucose,Whole Blood 278 mg/dL (75-99)
[2019-12-01] MEDS: MONTELUKAST 10 MG TAB PO SCH (21:28)
[2019-12-02] MEDS: ALPRAZolam 0.5 MG TAB PO PRN (00:11)
[2019-12-02] MEDS: LEVOTHYROXINE 50 MCG TAB PO SCH (06:12)
[2019-12-02 06:58] LABS: Glucose,Whole Blood 295 mg/dL (75-99)
[2019-12-02 07:11] VITALS: BP 160/69; RESP 14; TEMP 97.9
[2019-12-02] MEDS: IPRATROPIUM-ALBUTEROL 3 ML NEB INHALATION SCH ×2 (07:20→11:07)
[2019-12-02] MEDS: SYMBICORT 160-4.5 MCG INHALER INHALATION SCH (07:20)
[2019-12-02] MEDS: INSULIN ASPART (NovoLOG) 100 UNIT/ML VIAL SQ SCH ×2 (07:29→12:11)
[2019-12-02] MEDS: FERROUS SULFATE 325 MG TAB PO SCH (07:29)
[2019-12-02] MEDS: LOSARTAN 50 MG TAB PO SCH (07:29)
[2019-12-02] MEDS: INSULIN DETEMIR (LEVEMIR) 100 UNIT/ML SYR SQ SCH (07:29)
[2019-12-02] MEDS: ATORVASTATIN 10 MG TAB PO SCH (07:29)
[2019-12-02] MEDS: MULTIVITAMINS, THERA 1 EACH TAB PO SCH (07:30)
[2019-12-02] MEDS: PANTOPRAZOLE 40 MG TABLET PO SCH (07:30)
[2019-12-02] MEDS: DILTIAZEM CD 180 MG CAP.ER.24H PO SCH (07:30)
[2019-12-02] MEDS: methylPREDNISolone SOD SUCCI 40 MG/ML 1 ML VIAL IV SCH (07:30)
[2019-12-02] MEDS: CITALOPRAM HYDROBROMIDE 20 MG TAB PO SCH (07:30)
[2019-12-02] MEDS: FUROSEMIDE 10 MG/ML 4 ML VIAL IV SCH (07:30)
[2019-12-02] MEDS ORDERED: FUROSEMIDE 40 MG TAB PO SCH (09:00)
[2019-12-02 09:20] LABS: INR 1.91 (0.90-1.11); Prothrombin Time 19.9 sec (9.9-11.9)
[2019-12-02 09:47] LABS: African American GFR (CKD) 58.1 (60.0-200.0); Anion Gap 7.2 mmol/L (4.00-12.00); BUN/Creat Ratio 27.27 Ratio (12.00-20.00); Calcium 8.8 mg/dL (8.7-10.3); Carbon Dioxide 29.8 mmol/L (21.6-31.8); Non-African American GFR(CKD) 50.1 (60.0-200.0); Potassium 4.2 mmol/L (3.5-5.5)
--- NOTE | 2019-12-02 11:13 | P.PN ---
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 The patient has had multiple hospitalization for exacerbation of her COPD/asthma. She also has chronic atrial fibrillation maintained on long- term medical condition with warfarin. She has congestion heart failure, diabetes mellitus type 2, hypertension and hypothyroidism and she is obese with a BMI of 39.5. The patient was last hospitalized and October 2023 and acute exacerbation of COPD/asthma and she was diagnosed having a tracheal bronchitis related to pseudomonas aeruginosa. The cultures from the sputum again grew pseudomonas aeruginosa and a chest x-ray showed a diffuse interstitial infiltrate bilaterally with some background chronic interstitial changes /fibrosis. The patient had a bronchoscopy on 10/31/2019 and the lavage was consistent with Pseudomonas species. Nevertheless, prior cultures have also grown pseudomonas including the ones from 10/24/2019, 09/12/2019, 06/30/2019, 04/27/2019, and 01/19/2019. Note that following her most recent hosp italization, the patient completed a 2 week course of IV Merrem on outpatient basis. She came into the ED yesterday complaining of increased shortness of breath and cough and congestion. She also had increased swelling in the lower extremities bilaterally along with some increased in warmth and redness in the left lower extremity. Based on that, the patient was hospitalized for treatment of her shortness of breath and possible cellulitis. The patient white cell count of 5.7. The PT/INR was therapeutic with an INR of 2.7 as the patient on long-term medical condition with warfarin. She had a stable renal function. Troponin was negative. White cell count is not elevated. Note that the patient has also gained some weight and has some fluid retention since her last evaluation. No fever. Her coronavirus Covid 19 evaluation that was done during early hospitalization were all negative. Patient is seen today November 2019 in follow-up on the regular medical floor. She is currently sitting up in a chair at the bedside. Awake and alert in no acute distress. Breathing easier today compared to yesterday. Lower extremity edema is improved. Less redness. Less swelling. Maintaining good O2 saturations in the mid 90s on 2 L/m nasal cannula. She's afebrile. Blood culture reveals no growth to date. White count 6.7. Hemoglobin 9.4. INR 1.89. Sodium 144. Potassium 4.3. Creatinine 1.1. She remains on cefepime. Continued on bronchodilators. Continued on IV diuretics. Anticoagulated with warfarin. Sputum culture pending. The patient is seen today 11/30/2019 in follow-up on the regular medical floor. She is sitting up in a chair at the bedside. Awake and alert in no acute distress. Maintaining good O2 saturations in the 90s on 2 L/m per nasal cannula. She's been afebrile. Blood culture reveals no growth. Sputum culture pending. INR 1.76. Sodium 140. Potassium 4.2. Creatinine 1.2. She remains on Lasix 40 mg IV every 12 hours. Currently in a negative balance. Remains on Symbicort, DuoNeb inhalations, Singulair. Currently on cefazolin. Anticoag ulated with warfarin. The patient is seen today 12/01/2019 in follow-up on the regular medical floor. She remains awake and alert in no acute distress. Currently sitting up in a chair at the bedside. She states she is coughing more today more wheezing. More shortness of breath on exertion. She was scheduled to go home. She is maintaining O2 saturations in the 90s on 2 L/m per nasal cannula. She's been afebrile. Blood and sputum cultures reveal no growth to date. White count 6.1. Hemoglobin 8.6. INR 1.78. Sodium 141. Potassium 4.0. Creatinine 1.2. She is continued on DuoNeb inhalations, Symbicort, IV diuretics. IV Solu-Medrol added again today. The patient is seen today 12/02/2019 in follow-up on the regular medical floor. Sitting up in a chair at the bedside. Awake and alert in no acute distress. Her breathing is back to her baseline. Lower extremity edema improved. Sputum culture preliminary with gram-negative bacilli. INR 1.91. Sodium 140. Potassium 4.2. Creatinine 1.1. Glucose 291. He is continued on bronchodilators, steroids, oral diuretics. Antibiotics in the form of cefazolin. Objective - Vital Signs Vital signs: Vital Signs Temp 97.9 F 12/02/19 06:48 Pulse 92 12/02/19 07:35 Resp 14 12/02/19 06:48 BP 160/69 12/02/19 06:48 Pulse Ox 95 12/02/19 06:48 Intake & Output 12/01/19 12/02/19 12/02/19 18:59 06:59 18:59 Intake Total 940 Output Total 1200 1900 Balance -260 -1900 Weight 109.5 kg Intake: Oral 940 Output: Urine 1200 1900 Other: # Voids 3 - Exam GENERAL EXAM: Alert, very pleasant, 74-year-old female patient, on 2 L of oxygen with a pulse ox of 95%, comfortable in no apparent distress. Up in a chair at the bedside HEAD: Normocephalic/atraumatic. EYES: Normal reaction of pupils, equal size. Conjunctiva pink, sclera white. NOSE: Clear with pink turbinates. THROAT: No erythema or exudates. NECK: No masses, no JVD, no thyroid enlargement, no adenopathy. CHEST: No chest wall deformity. Symmetrical expansion. LUNGS: Equal air entry with some scattered wheezes and rhonchi CVS: Regular rate and rhythm, normal S1 and S2, no gallops, no murmurs, no rubs ABDOMEN: Soft, nontender. No hepatosplenomegaly, normal bowel sounds, no guarding or rigidity. EXTREMITIES: No clubbing, chronic venous stasis changes involving lower extremities, and increase pretibial edema, no cyanosis, 2+ pulses and upper and lower extremities. Rickie wraps on bilateral MUSCULOSKELETAL: Muscle strength and tone normal. SPINE: No scoliosis or deformity SKIN: No rashes CENTRAL NERVOUS SYSTEM: No focal deficits, tone is normal in all 4 extremities. PSYCHIATRIC: Alert and oriented -3. Appropriate affect. Intact judgment and insight. - Labs CBC & Chem 7: 12/01/19 06:14 12/02/19 05:44 Labs: Abnormal Lab Results - Last 24 Hours (Table) 12/01/19 12/01/19 12/01/19 Range/Units 11:38 17:13 21:21 PT (9.9-11.9) sec INR (0.90-1.11) BUN (9.0-27.0) mg/dL Est GFR (CKD-EPI)AfAm (60.0-200.0) Est GFR (CKD-EPI)NonAf (60.0-200.0) BUN/Creatinine Ratio (12.00-20.00) Ratio Glucose (70-110) mg/dL POC Glucose (mg/dL) 192 H 250 H 278 H (75-99) mg/dL 12/02/19 12/02/19 12/02/19 Range/Units 05:44 05:44 06:57 PT 19.9 H (9.9-11.9) sec INR 1.91 H (0.90-1.11) BUN 30.0 H (9.0-27.0) mg/dL Est GFR (CKD-EPI)AfAm 58.1 L (60.0-200.0) Est GFR (CKD-EPI)NonAf 50.1 L (60.0-200.0) BUN/Creatinine Ratio 27.27 H (12.00-20.00) Ratio Glucose 291 H (70-110) mg/dL POC Glucose (mg/dL) 295 H (75-99) mg/dL Microbiology - Last 24 Hours (Table) 11/27/19 16:52 Blood Culture - Preliminary Blood No Growth after 96 hours 11/30/19 00:12 Gram Stain - Preliminary Sputum Sputum Culture - Preliminary Gram Neg Bacilli Assessment and Plan Assessment: 1. Worsening shortness of breath, multifactorial. The patient obviously has chronic COPD/asthma with chronic colonization/infection with pseudomonas aeruginosa. Sputum culture pending. At the same time, the patient has some signs of fluid overload and increased lower extremity edema. Cellulitis of the lower extremity cannot be completely excluded. Currently on cefazolin. Sputum culture preliminary for gram-negative bacilli 2 cellulitis of the lower extremities, bilateral, in addition to swelling in lower extremities bilaterally. Previous echocardiogram at shown a moderate to severe pulmonary hypertension and right ventricular pressure of 57 and the right ventricular is mildly to moderately enlarged. 3 chronic bronchial asthma 4 COPD 5 chronic hypoxic respiratory failure limited on oxygen 2 L per minute nasal cannula 6 paroxysmal atrial fibrillation with a therapeutic PT/INR and the cardiac rhythm is sinus mechanism 7 diabetes mellitus type 2 8 hypertension 9 hypothyroidism 10 Chronic interstitial changes present on the chest x-ray likely related to underlying pulmonary fibrosis/scarring from previous pulmonary infections 11 chronic pulmonary hypertension moderate to severe with a PA pressure of 57. Plan The patient was seen and evaluated by Dr. Marlnea Hardy with gram-negative bacilli We will follow in the outpatient setting. She just completed meropenem Colonized with pseudomonas Cefazolin for cellulitis per ID services Home once cleared medically I, the cosigning physician, performed a history & physical examination of the patient. Lungs sounds few scattered rhonchi bilaterally. Maintaining good O2 saturations in the 90s on 2 L/m per nasal cannula. I discussed the assessment and plan of care with my nurse practitioner, Su Arias. I attest to the above note as dictated by her.
[2019-12-02 11:17] VITALS: PULSE 92
[2019-12-02 11:48] LABS: Glucose,Whole Blood 255 mg/dL (75-99)
--- NOTE | 2019-12-02 12:57 | P.DS ---
Providers Date of admission: 11/27/19 16:38 Expected date of discharge: 12/02/19 Attending physician: Nixon Gamboa Consults: 11/27/19 16:39 Consult Physician Urgent Consulting Provider: Meme Mendiola Consult Reason/Comments: acute/chronic respiratory failure Do you want consulting provider notified?: Yes 11/28/19 04:33 Consult Physician Routine Consulting Provider: Claire Apple Consult Reason/Comments: cellulitis Do you want consulting provider notified?: Already Contacted 11/28/19 04:37 Consult Physician Routine Consulting Provider: Malika Pruett Consult Reason/Comments: chf Do you want consulting provider notified?: Already Contacted Primary care physician: [facility] Course: 72-year-old female with the 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 Patient also complaining of orthopnea didn't give any history of the proximal nocturnal dyspnea. Patient does have congestive heart failure chronic diastolic dysfunction, patient BNP is only 372. patient does have pedal edema does have severe pulmonary hypertension probably contributed into right heart failure. Is comparing of cough with the LS sputum production. Patient was started on cefepime pulmonary, infectious disease were consulted. Cardiology evaluate the patient as well.. Patient has history of atrial fibrillation for which patient is on Coumadin INR of around 2.7. 11/29/2019 She is feeling bit better today but still quite a bit rhonchorous and wheezing on exam still has some pedal edema remains on IV Lasix stable creatinine. INR has come down we'll switch her back to her home dose of Coumadin which is 5 mg daily recheck INR. 11/30/2019 Still has pedal edema for which she is receiving diuresis with IV Lasix. Left lower extremity cellulitis clinically improving, is continued on antimicrobial therapy with Ancef. Has some mild expiratory wheezing and scattered rhonchi, 2 L nasal cannula saturating 97%. Her, hemodynamically stable. 12/01/19 Patient seen on follow-up, still reports some shortness of breath, mainly with exertion, has less wheezing today, receiving IV Solu-Medrol, and bro nchodilators. She remains on 2 L nasal cannula saturating above 90%, afebrile, remained hemodynamically stable. Cultures blood and sputum negative. 12/02/19 Patient seen on follow-up appointment recliner, on 2 L nasal cannula saturating above 90%, uses oxygen 2 L at baseline. Patient does want to go home today, states she is feeling better. 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 Receiving antimicrobial therapy with Ancef for cellulitis lower extremity which is improving. INR subtherapeutic 1.91, she will need to continue on Coumadin And recheck her INR in a few days. Hemodynamically stable, afebrile. Blood sugars running high. Constitutional: Denied any fatigue denied any fever. Cardio vascular: denied any chest pain, palpitations Gastrointestinal denied any nausea vomiting Pulmonary: Exertional dyspnea Neurologic denied any new focal deficits GENERAL: The patient is alert and oriented x3, not in any acute distress. Well developed, well nourished. HEENT: Pupils are round and equally reacting to light. EOMI. No scleral icterus. No conjunctival pallor. Normocephalic, atraumatic. No pharyngeal erythema. No thyromegaly. CARDIOVASCULAR: S1 and S2 present. No murmurs, rubs, or gallops. PULMONARY: Minimal wheezing, improved air entry, scattered rhonchi ABDOMEN: Soft, nontender, nondistended, normoactive bowel sounds. No palpable organomegaly. MUSCULOSKELETAL: No joint swelling or deformity. EXTREMITIES: No cyanosis, clubbing, significant bilateral lower extremity edema with the area of cellulitis to left lower extremity which is improving NEUROLOGICAL: Gross neurological examination did not reveal any focal deficits. SKIN: Possible colitis as mentioned above the left leg Assessment and plan -Shortness of breath: Secondary to severe bronchitis, . Possible colonization with Pseudomonas, gram-negative and preliminary sputum culture. On 2 L nasal cannula which she is at baseline, patient states she is feeling better and is asking to go home. She will continue on prednisone taper, nebulized bronchodilators, and controller inhalers. -CHF with diastolic dysfunction, possible right-sided heart failure: We will increase dose of Lasix to 40 mg oral twice daily upon discharge -Cellulitis of the left lower extremity with bilateral pedal edema: Continue course antimicrobial therapy with Keflex for 7 days upon discharge -Chronic bronchial asthma chronic persistent asthma -Chronic hypoxic respiratory failure 2 L nasal cannula which she uses at home -Proximal A. fib therapy, INR subtherapeutic: Coumadin increased to 5 mg during hospitalization, she will continue on this dose and recheck INR in 3 days. -Type 2 diabetes mellitus: continue on Levemir at 50 units daily during course of prednisone, and then resume previous home dose once taper is completed. -Hypertension -Hypothyroidism -Possible interstitial lung disease, chronic interstitial changes present on chest x-ray -Moderate to severe chronic pulmonary hypertension -DVT prophylaxis, on systemic anticoagulation with warfarin Patient Condition at Discharge: Stable Plan - Discharge Summary Discharge Rx Participant: No New Discharge Prescriptions: New predniSONE 10 mg PO DAILY #30 tab Cephalexin [Keflex] 500 mg PO Q8HR 7 Days #21 cap Continue Diltiazem HCl [Diltiazem HCl 24Hr ER] 180 mg PO DAILY Alendronate Sodium [Fosamax] 70 mg PO FR Lovastatin [Mevacor] 40 mg PO DAILY Citalopram Hydrobromide [Citalopram HBr] 40 mg PO DAILY ALPRAZolam [Xanax] 0.5 mg PO TID Ipratropium Nebulized [Atrovent Nebulized 0.2 MG/ML] 0.5 mg INHALATION RT-QID Levothyroxine Sodium [Synthroid] 50 mcg PO DAILY Losartan [Cozaar] 50 mg PO DAILY traMADol HCL 50 mg PO TID PRN PRN Reason: Pain Zafirlukast [Accolate] 20 mg PO BID Albuterol Nebulized [Ventolin Nebulized] 2.5 mg INHALATION RT-Q6H PRN PRN Reason: Shortness Of Breath Warfarin Sodium [Coumadin] 5 mg PO HS Loratadine [Claritin] 10 mg PO DAILY Albuterol Sulfate [Ventolin HFA] 1 - 2 puff INHALATION RT-Q6H PRN PRN Reason: Shortness Of Breath guaiFENesin [Mucinex] 600 mg PO Q12HR PRN #14 tablet.er PRN Reason: Cough Ferrous Sulfate [Iron (65 MG Elemental)] 325 mg PO DAILY #30 tab Insulin Regular, Human [NovoLIN R] See Protocol SQ ACHS MDD 30 UNITS Pantoprazole [Protonix] 40 mg PO AC-BRKFST #30 tablet. Budesonide-Formot 160-4.5 Mcg [Symbicort 160-4.5 Mcg Inhaler] 2 puff INHALATION RT-BID #1 puff Multivitamins, Thera [Multivitamin (formulary)] 1 tab PO DAILY Insulin Glargine [Lantus] 40 unit SQ DAILY #0 Changed Potassium Chloride [Klor-Con 20] 20 meq PO DAILY #0 Furosemide [Lasix] 40 mg PO BID #0 Discharge Medication List ALPRAZolam [Xanax] 0.5 mg PO TID 01/16/19 [History] Alendronate Sodium [Fosamax] 70 mg PO FR 01/16/19 [History] Citalopram Hydrobromide [Citalopram HBr] 40 mg PO DAILY 01/16/19 [History] Diltiazem HCl [Diltiazem HCl 24Hr ER] 180 mg PO DAILY 01/16/19 [History] Ipratropium Nebulized [Atrovent Nebulized 0.2 MG/ML] 0.5 mg INHALATION RT-QID 01/16/19 [History] Levothyroxine Sodium [Synthroid] 50 mcg PO DAILY 01/16/19 [History] Losartan [Cozaar] 50 mg PO DAILY 01/16/19 [History] Lovastatin [Mevacor] 40 mg PO DAILY 01/16/19 [History] Zafirlukast [Accolate] 20 mg PO BID 01/16/19 [History] traMADol HCL 50 mg PO TID PRN 01/16/19 [History] Albuterol Nebulized [Ventolin Nebulized] 2.5 mg INHALATION RT-Q6H PRN 04/26/19 [History] Warfarin Sodium [Coumadin] 5 mg PO HS 06/28/19 [History] Albuterol Sulfate [Ventolin HFA] 1 - 2 puff INHALATION RT-Q6H PRN 08/07/19 [History] Loratadine [Claritin] 10 mg PO DAILY 08/07/19 [History] Ferrous Sulfate [Iron (65 MG Elemental)] 325 mg PO DAILY #30 tab 08/10/19 [Rx] guaiFENesin [Mucinex] 600 mg PO Q12HR PRN #14 tablet.er 08/10/19 [Rx] Insulin Regular, Human [NovoLIN R] See Protocol SQ ACHS MDD 30 UNITS 09/11/19 [History] Budesonide-Formot 160-4.5 Mcg [Symbicort 160-4.5 Mcg Inhaler] 2 puff INHALATION RT-BID #1 puff 09/15/19 [Rx] Pantoprazole [Protonix] 40 mg PO AC-BRKFST #30 tablet. 09/15/19 [Rx] Multivitamins, Thera [Multivitamin (formulary)] 1 tab PO DAILY 11/27/19 [History] Cephalexin [Keflex] 500 mg PO Q8HR 7 Days #21 cap 12/02/19 [Rx] Furosemide [Lasix] 40 mg PO BID #0 12/02/19 [Rx] Insulin Glargine [Lantus] 40 unit SQ DAILY #0 12/02/19 [Rx] Potassium Chloride [Klor-Con 20] 20 meq PO DAILY #0 12/02/19 [Rx] predniSONE 10 mg PO DAILY #30 tab 12/02/19 [Rx] Follow up Appointment(s)/Referral(s): Cyn [facility], [NON-STAFF] - As Needed Verona Medrano MD [Primary Care Provider] - 3 Days Meme Mendiola MD [Family Provider] - 1 Week Patient Instructions/Handouts: Cellulitis (DC), COPD (Chronic Obstructive Pulmonary Disease) (DC) Discharge Disposition: HOME SELF-CARE
[2019-12-02] MEDS ORDERED: WARFARIN 5 MG TAB PO SCH (18:00)
[2019-12-02] MEDS ORDERED: WARFARIN 3 MG TAB PO SCH (18:00)
[2019-12-03] MEDS ORDERED: INSULIN DETEMIR (LEVEMIR) 100 UNIT/ML SYR SQ SCH (07:00)
== END 2019-12-02 13:15 | disposition home or self-care (01) | DRG 291 ==
LOC: EC 14:50 → 4SSUR 16:38
PROVIDERS: ADMIT Hospitalist; ATTEND Hospitalist
DX: I13.0 Hypertensive heart and chronic kidney disease with heart failure and stage 1 through stage 4 chronic kidney disease, or unspecified chronic kidney disease (principal); I50.33 Acute on chronic diastolic (congestive) heart failure; J44.0 Chronic obstructive pulmonary disease with (acute) lower respiratory infection; J98.11 Atelectasis; L03.116 Cellulitis of left lower limb; L03.115 Cellulitis of right lower limb; J44.1 Chronic obstructive pulmonary disease with (acute) exacerbation; J96.11 Chronic respiratory failure with hypoxia; J20.8 Acute bronchitis due to other specified organisms; I48.0 Paroxysmal atrial fibrillation; I27.29 Other secondary pulmonary hypertension; E78.5 Hyperlipidemia, unspecified; E66.9 Obesity, unspecified; F41.0 Panic disorder [episodic paroxysmal anxiety]; E03.9 Hypothyroidism, unspecified; B96.5 Pseudomonas (aeruginosa) (mallei) (pseudomallei) as the cause of diseases classified elsewhere; E11.22 Type 2 diabetes mellitus with diabetic chronic kidney disease; H91.90 Unspecified hearing loss, unspecified ear; I07.1 Rheumatic tricuspid insufficiency; I44.4 Left anterior fascicular block; M19.90 Unspecified osteoarthritis, unspecified site; K21.9 Gastro-esophageal reflux disease without esophagitis; J84.10 Pulmonary fibrosis, unspecified; J84.89 Other specified interstitial pulmonary diseases; R74.8 Abnormal levels of other serum enzymes; N18.2 Chronic kidney disease, stage 2 (mild); Z68.39 Body mass index [BMI] 39.0-39.9, adult; Z79.01 Long term (current) use of anticoagulants; Z79.4 Long term (current) use of insulin; Z79.51 Long term (current) use of inhaled steroids; Z79.83 Long term (current) use of bisphosphonates; Z79.890 Hormone replacement therapy; Z79.899 Other long term (current) drug therapy; Z88.0 Allergy status to penicillin; Z88.2 Allergy status to sulfonamides; Z91.041 Radiographic dye allergy status; Z91.040 Latex allergy status; Z99.81 Dependence on supplemental oxygen; Z90.710 Acquired absence of both cervix and uterus; Z90.49 Acquired absence of other specified parts of digestive tract; Z98.42 Cataract extraction status, left eye; Z87.01 Personal history of pneumonia (recurrent); Z88.1 Allergy status to other antibiotic agents; Z86.19 Personal history of other infectious and parasitic diseases
CPT/HCPCS: 36415; 71045; 71046; 80048; 80053; 83036; 83605; 83880; 84484; 85025; 85027; 85610; 85730; 87040; 87070; 87077; 87186; 87205; 93005; 94640; 94760; 96374; 96375; 99285

== ENCOUNTER 2019-12-10 04:04 | Inpatient (IN) | payer MEDICARE ==
[2019-12-10 07:06] LABS: Albumin 3.8 g/dL (3.5-5.0); Calcium 9.5 mg/dL (8.4-10.2); Magnesium 1.7 mg/dL (1.6-2.3); Potassium 4.3 mmol/L (3.5-5.1); Total Bilirubin 0.6 mg/dL (0.2-1.3)
[2019-12-10 07:07] LABS: Anisocytosis Slight; Basophils % (A) 0 %; Eosinophils % (A) 0 %; HCT 35.5 % (34.0-46.0); Hypochromasia Slight; Lymphocytes # (A) 2.9 k/uL (1.0-4.8); Lymphocytes % (A) 26 %; MCH 26.3 pg (25.0-35.0); MCV 84.8 fL (80.0-100.0); Mean Platelet Volume 7.2; Monocytes # (A) 0.8 k/uL (0-1.0); Monocytes % (A) 7 %; Neutrophils # (A) 7.6 k/uL (1.3-7.7); Neutrophils % (A) 66 %; Platelet Count 296 k/uL (150-450); Poikilocytosis Slight; RBC 4.18 m/uL (3.80-5.40); RDW 16.9 % (11.5-15.5); WBC 11.5 k/uL (3.8-10.6)
[2019-12-10 07:09] LABS: Partial Thromboplastin Time 27.7 sec (22.0-30.0); Prothrombin Time 19.8 sec (9.0-12.0)
--- NOTE | 2019-12-10 08:59 | XR ---
EXAM: XR Chest, 2 Views CLINICAL HISTORY: SOB TECHNIQUE: Frontal and lateral views of the chest. COMPARISON: 11/27/19 FINDINGS: Lungs: Lung volumes are within normal limits. No evidence of airspace consolidation. No pulmonary edema. Pleural space: No evidence of pneumothorax. Heart: Cardiac silhouette is unchanged, and within normal limits. Mediastinum: No mediastinal widening or shift. Bones/joints: No acute osseous abnormality. IMPRESSION: No evidence of acute cardiopulmonary abnormality.
[2019-12-10 11:52] LABS: Glucose,Whole Blood 228 mg/dL (75-99)
[2019-12-10] MEDS ORDERED: IPRATROPIUM-ALBUTEROL 3 ML NEB INHALATION PRN (11:59)
[2019-12-10] MEDS ORDERED: NITROGLYCERIN OINT 1 INCH/GM PACKET TOPICAL SCH (12:00)
[2019-12-10] MEDS ORDERED: traMADol 50 MG TAB PO PRN (12:24)
--- NOTE | 2019-12-10 12:37 | P.HPIM ---
History of Present Illness This is a pleasant 74 years old female with multiple medical problems as below. Patient was recently discharged from this hospital 11/26-12/01 for COPD with colonization with Pseudomonas aeruginosa and fluid overload. And possible cellulitis of the lower extremities. She was discharged on tapering steroids and other medication she was at home to her therapy and she was doing well upon discharge over few days ago she started getting coughing with shortness of breath and chest pain with coughing which mainly central. Although workup seems with however nothing was coming up. No complaints about her leg and cellulitis of lower extremity looks resoled. No problem regarding her urine or bowel. Vitas looks stable, blood pressure on the high side 175/87 Labs showing mild leukocytosis of 11.5 K, +10.4 upon discharge last time however she was on steroids at home. INR is 2.0. BMP and liver enzymes were unremarkable. Serial troponins are negative 3. Lipase is normal at 52 Chest x-ray: No acute process. EKG shows sinus tachycardia at [address]-T changes and QTC 433. Cardiology and pulmonary team were consulted Review of Systems CONSTITUTIONAL: No fever, no malaise, no fatigue. HEENT: No recent visual problems or hearing problems. Denied any sore throat. CARDIOVASCULAR: No orthopnea, PND, no palpitations, no syncope. PULMONARY: No upper respiratory symptoms, no hemoptysis. GASTROINTESTINAL: No diarrhea, no nausea, no vomiting, no abdominal pain. Normoactive bowel sounds. NEUROLOGICAL: No headaches, no weakness, no numbness. HEMATOLOGICAL: Denies any bleeding or petechiae. GENITOURINARY: Denies any burning micturition, frequency, or urgency. MUSCULOSKELETAL/RHEUMATOLOGICAL: Denies any joint pain, swelling, or any muscle pain. ENDOCRINE: Denies any polyuria or polydipsia. Past Medical History Past Medical History: Atrial Fibrillation, Asthma, Heart Failure, COPD, Diabetes Mellitus, GERD/Reflux, Hearing Disorder / Deafness, Hypertension, Osteoarthritis (OA), Pneumonia, Renal Disease, Thyroid Disorder Additional Past Medical History / Comment(s): HOLE IN RIGHT RETINA. hiatal hernia, anemia, chronic hypoxic respiratory failure, recent pulmonary infection with pseudomonas aeruginosa confirmed via bronchoscopy and the lavage History of Any Multi-Drug Resistant Organisms: Other MDRO Past Surgical History: Cholecystectomy, Hysterectomy Additional Past Surgical History / Comment(s): CATARACT REMOVAL LEFT EYE. Past Anesthesia/Blood Transfusion Reactions: No Reported Reaction Past Psychological History: Anxiety, Panic Disorder Smoking Status: Never smoker Past Alcohol Use History: None Reported Past Drug Use History: None Reported - Past Family History Mother Family Medical History: No Reported History Medications and Allergies Home Medications Medication Instructions Recorded Confirmed Type ALPRAZolam [Xanax] 0.5 mg PO TID 01/16/19 12/10/19 History Alendronate Sodium [Fosamax] 70 mg PO FR 01/16/19 12/10/19 History Citalopram Hydrobromide 40 mg PO DAILY 01/16/19 12/10/19 History [Citalopram HBr] Diltiazem HCl [Diltiazem HCl 24Hr 180 mg PO DAILY 01/16/19 12/10/19 History ER] Ipratropium Nebulized [Atrovent 0.5 mg INHALATION RT-QID 01/16/19 12/10/19 History Nebulized 0.2 MG/ML] Levothyroxine Sodium [Synthroid] 50 mcg PO DAILY 01/16/19 12/10/19 History Losartan [Cozaar] 50 mg PO DAILY 01/16/19 12/10/19 History Lovastatin [Mevacor] 40 mg PO DAILY 01/16/19 12/10/19 History Zafirlukast [Accolate] 20 mg PO BID 01/16/19 12/10/19 History traMADol HCL 50 mg PO TID PRN 01/16/19 12/10/19 History Albuterol Nebulized [Ventolin 2.5 mg INHALATION RT-QID PRN 04/26/19 12/10/19 History Nebulized] Warfarin Sodium [Coumadin] 5 mg PO HS 06/28/19 12/10/19 History Albuterol Sulfate [Ventolin HFA] 1 - 2 puff INHALATION RT-Q6H PRN 08/07/19 12/10/19 History Loratadine [Claritin] 10 mg PO DAILY 08/07/19 12/10/19 History Ferrous Sulfate [Iron (65 MG 325 mg PO DAILY #30 tab 08/10/19 12/10/19 Rx Elemental)] Insulin Regular, Human [NovoLIN R] See Protocol SQ ACHS MDD 30 UNITS 09/11/19 12/10/19 History Budesonide-Formot 160-4.5 Mcg 2 puff INHALATION RT-BID #1 puff 09/15/19 12/10/19 Rx [Symbicort 160-4.5 Mcg Inhaler] Pantoprazole [Protonix] 40 mg PO BRIDGETTE-CORRINEKFST #30 tablet. 09/15/19 12/10/19 Rx Multivitamins, Thera [Multivitamin 1 tab PO DAILY 11/27/19 12/10/19 History (formulary)] Furosemide [Lasix] 40 mg PO BID #0 12/02/19 12/10/19 Rx Potassium Chloride [Klor-Con 20] 20 meq PO DAILY #0 12/02/19 12/10/19 Rx Insulin Glargine [Lantus] 50 unit SQ DAILY 12/10/19 12/10/19 History guaiFENesin [Mucinex] 600 mg PO Q12H PRN 12/10/19 12/10/19 History predniSONE See Taper PO DAILY 12/10/19 12/10/19 History Allergies Allergy/AdvReac Type Severity Reaction Status Date / Time Iodinated Contrast Media Allergy Unknown, Verified 12/10/19 08:34 POOR RENAL FUNCTIONS Sulfa (Sulfonamide Allergy Unknown Verified 12/10/19 08:34 Antibiotics) latex AdvReac Rash/Hives Verified 12/10/19 08:34 Penicillins AdvReac Rash/Hives Verified 12/10/19 08:34 Physical Exam Vitals: Vital Signs Temp Pulse Resp BP Pulse Ox 12/10/19 09:07 93 20 175/87 96 12/10/19 07:51 98.7 F 86 20 171/81 97 Intake and Output 12/09/19 12/10/19 12/10/19 22:59 06:59 14:59 Other: Weight 106.141 kg GENERAL: The patient is alert and oriented x3, not in any acute distress. Well developed, well nourished. HEENT: Pupils are round and equally reacting to light. EOMI. No scleral icterus. No conjunctival pallor. Normocephalic, atraumatic. No pharyngeal erythema. No thyromegaly. CARDIOVASCULAR: S1 and S2 present. No murmurs, rubs, or gallops. -PULMONARY: Chest is clear to auscultation, bilateral harsh wheezing ABDOMEN: Soft, nontender, nondistended, normoactive bowel sounds. No palpable organomegaly. MUSCULOSKELETAL: No joint swelling or deformity. EXTREMITIES: No cyanosis, clubbing, or pedal edema. No cellulitis NEUROLOGICAL: Gross neurological examination did not reveal any focal deficits. SKIN: No rashes. No petechiae Results CBC & Chem 7: 12/10/19 04:30 12/10/19 04:30 Labs: Abnormal Lab Results - Last 24 Hours (Table) 12/10/19 12/10/19 12/10/19 Range/Units 04:30 04:30 04:30 WBC 11.5 H (3.8-10.6) k/uL Hgb 11.0 L (11.4-16.0) gm/dL RDW 16.9 H (11.5-15.5) % PT 19.8 H (9.0-12.0) sec INR 2.0 H (<1.2) Sodium 136 L (137-145) mmol/L Carbon Dioxide 32 H (22-30) mmol/L BUN 26 H (7-17) mg/dL Glucose 237 H (74-99) mg/dL POC Glucose (mg/dL) (75-99) mg/dL 12/10/19 Range/Units 11:50 WBC (3.8-10.6) k/uL Hgb (11.4-16.0) gm/dL RDW (11.5-15.5) % PT (9.0-12.0) sec INR (<1.2) Sodium (137-145) mmol/L Carbon Dioxide (22-30) mmol/L BUN (7-17) mg/dL Glucose (74-99) mg/dL POC Glucose (mg/dL) 228 H (75-99) mg/dL Assessment and Plan Assessment: -Acute Shortness of breath: Secondary to severe bronchitis, . Possible colonization with Pseudomonas, On 2 L nasal cannula which she is at baseline. Consult pulmonary service. May need bronchoscopy -CHF with diastolic dysfunction, possible right-sided heart failure: Last time her physician increased dose of Lasix to 40 mg oral twice daily upon discharge. Consult cardiology -Cellulitis of the left lower extremity with bilateral pedal edema: Discharged on Keflex for 7 days upon discharge last week -mild leukocytosis could be due to recent steroids intake, we'll keep monitoring- -Chronic bronchial asthma chronic persistent asthma -Chronic hypoxic respiratory failure 2 L nasal cannula which she uses at home -Proximal A. fib therapy, INR subtherapeutic: Coumadin increased to 5 mg during hospitalization, she will decrease the dose of Coumadin to 2.5 she is on Levaquin -Type 2 diabetes mellitus: continue on Levemir at 50 units daily during course of prednisone, and then resume previous home dose once taper is completed. -Hypertension -Hypothyroidism -Possible interstitial lung disease, chronic interstitial changes present on ch est x-ray -Moderate to severe chronic pulmonary hypertension DVT prophylaxisOn Coumadin GI Prophylaxis: Pepcid PT/OT: Pending
[2019-12-10] MEDS: DILTIAZEM CD 180 MG CAP.ER.24H PO SCH (14:26)
[2019-12-10] MEDS: LOSARTAN 50 MG TAB PO SCH (14:26)
[2019-12-10] MEDS: METOPROLOL TARTRATE 25 MG TAB PO SCH ×2 (14:26→21:24)
[2019-12-10] MEDS: methylPREDNISolone SOD SUCCI 125 MG/2 ML VIAL IV SCH ×2 (14:27→17:26)
[2019-12-10] MEDS: LEVOFLOXACIN 500MG-D5W PMX 500 MG in DEXTROSE/WATER 1 100ML.BAG IVPB SCH (14:27)
[2019-12-10] MEDS: FUROSEMIDE 40 MG TAB PO SCH (14:27)
[2019-12-10] MEDS: ATORVASTATIN 10 MG TAB PO SCH (14:27)
--- NOTE | 2019-12-10 14:39 | P.CRDCN ---
History of Present Illness History of present illness: HISTORY OF PRESENTING ILLNESS This is a pleasant 74-year-old female past medical history significant for documented history of paroxysmal atrial fibrillation on Coumadin, COPD, solitario betes mellitus, hypertension and obesity. She denies prior history of coronary artery disease and does not follow with a recruitment coordinator. She was recently discharged from the hospital last Tuesday and is supposed to see Dr. Craven in the office however came back to the hospital for worsening shortness of breath. She states last night she started feeling short of breath again similar to how she felt on previous admission. She also has some pain in the upper abdomen region that is described as a burning sensation that is worse with breathing and coughing. She denies dizziness or palpitations. Most recent echocardiogram obtained October 2019 revealed preserved LV systolic function with ejection fraction 55-60%, moderate to severe TR and moderate to severe pulmonary hypertension with an RVSP of 57 mmHg. DIAGNOSTICS EKG reveals sinus tachycardia heart rate of 106 with left axis deviation and LVH, mild ST nonspecific abnormalities noted. Chest xray negative for an acute cardiopulmonary process. Laboratory reviewed, WBC 11.5, hemoglobin 11, platelets 296, INR 2.0, sodium 136, potassium 4.3, creatinine 1.02, magnesium 1.7, cardiac enzymes negative 3, NT proBNP 742. Current cardiac medications include diltiazem 180 mg daily, Lasix 40 mg twice a day, losartan 50 mg daily, lovastatin 40 mg daily, daily potassium supplementation and Coumadin. REVIEW OF SYSTEMS At the time of my exam: CONSTITUTIONAL: Denies fever or chills. CARDIOVASCULAR: Complains of shortness of breath. Denies chest pain, orthopnea, PND or palpitations. RESPIRATORY: Complains of cough. GASTROINTESTINAL: Complains of upper abdominal pain. Denies diarrhea, constipation, nausea or vomiting. MUSCULOSKELETAL: Denies myalgias. NEUROLOGIC: Denies numbness, tingling or weakness. ENDOCRINE: Denies fatigue, weight change, polydipsia or polyurina. GENITOURINARY: Denies burning, hematuria or urgency with micturation. HEMATOLOGIC: Denies history of anemia or bleeding. PHYSICAL EXAMINATION Blood pressure 175/87 heart rate 93 afebrile and maintaining oxygen saturation on nasal cannula. CONSTITUTIONAL: No apparent distress. HEENT: Head is normocephalic. Pupils are equal, round. Sclerae anicteric. Mucous membranes of the mouth are moist. No JVD. No carotid bruit. CHEST EXAMINATION: Coarse scattered rhonchi noted throughout lungs bilaterally, no rales or wheezes. No chest wall tenderness is noted on palpation or with deep breathing. HEART EXAMINATION: Regular rate and rhythm. S1, S2 heard. No murmurs, gallops or rub. ABDOMEN: Soft, nontender. Positive bowel sounds. EXTREMITIES: 2+ peripheral pulses, bilateral lower extremity edema and erythema and no calf tenderness. NEUROLOGIC EXAMINATION: Patient is awake, alert and oriented x3. ASSESSMENT Shortness of breath secondary acute exacerbation of COPD Leukocytosis Paroxysmal atrial fibrillation on coumadin, currently in sinus mechanism Pulmonary hypertension Hypertension, uncontrolled Diabetes mellitus Dyslipidemia Obesity, BMI 38 PLAN Clinically she is euvolemic. She has some chronic lower extremity edema that looks to be secondary to venous stasis. Consult pulmonary care team for further evaluation and treatment. Increase losartan to 100 mg daily and initiate lopressor 25 mg BID for optimal blood pressure control. We will not repeat an echocardiogram during [facility] admission, she had one in October of this year. Ongoing medical management. Thank you kindly for this conslutation. Nurse Practitioner note has been reviewed, I agree with a documented findings and plan of care. Patient was seen and examined. Past Medical History Past Medical History: Atrial Fibrillation, Asthma, Heart Failure, COPD, Diabetes Mellitus, GERD/Reflux, Hearing Disorder / Deafness, Hypertension, Osteoarthritis (OA), Pneumonia, Renal Disease, Thyroid Disorder Additional Past Medical History / Comment(s): HOLE IN RIGHT RETINA. hiatal hernia, anemia, chronic hypoxic respiratory failure, recent pulmonary infection with pseudomonas aeruginosa confirmed via bronchoscopy and the lavage History of Any Multi-Drug Resistant Organisms: Other MDRO Past Surgical History: Cholecystectomy, Hysterectomy Additional Past Surgical History / Comment(s): CATARACT REMOVAL LEFT EYE. Past Anesthesia/Blood Transfusion Reactions: No Reported Reaction Past Psychological History: Anxiety, Panic Disorder Smoking Status: Never smoker Past Alcohol Use History: None Reported Past Drug Use History: None Reported - Past Family History Mother Family Medical History: No Reported History Medications and Allergies Home Medications Medication Instructions Recorded Confirmed Type ALPRAZolam [Xanax] 0.5 mg PO TID 01/16/19 12/10/19 History Alendronate Sodium [Fosamax] 70 mg PO FR 01/16/19 12/10/19 History Citalopram Hydrobromide 40 mg PO DAILY 01/16/19 12/10/19 History [Citalopram HBr] Diltiazem HCl [Diltiazem HCl 24Hr 180 mg PO DAILY 01/16/19 12/10/19 History ER] Ipratropium Nebulized [Atrovent 0.5 mg INHALATION RT-QID 01/16/19 12/10/19 History Nebulized 0.2 MG/ML] Levothyroxine Sodium [Synthroid] 50 mcg PO DAILY 01/16/19 12/10/19 History Losartan [Cozaar] 50 mg PO DAILY 01/16/19 12/10/19 History Lovastatin [Mevacor] 40 mg PO DAILY 01/16/19 12/10/19 History Zafirlukast [Accolate] 20 mg PO BID 01/16/19 12/10/19 History traMADol HCL 50 mg PO TID PRN 01/16/19 12/10/19 History Albuterol Nebulized [Ventolin 2.5 mg INHALATION RT-QID PRN 04/26/19 12/10/19 History Nebulized] Warfarin Sodium [Coumadin] 5 mg PO HS 06/28/19 12/10/19 History Albuterol Sulfate [Ventolin HFA] 1 - 2 puff INHALATION RT-Q6H PRN 08/07/19 12/10/19 History Loratadine [Claritin] 10 mg PO DAILY 08/07/19 12/10/19 History Ferrous Sulfate [Iron (65 MG 325 mg PO DAILY #30 tab 08/10/19 12/10/19 Rx Elemental)] Insulin Regular, Human [NovoLIN R] See Protocol SQ ACHS MDD 30 UNITS 09/11/19 12/10/19 History Budesonide-Formot 160-4.5 Mcg 2 puff INHALATION RT-BID #1 puff 09/15/19 12/10/19 Rx [Symbicort 160-4.5 Mcg Inhaler] Pantoprazole [Protonix] 40 mg PO AC-BRKFST #30 tablet. 09/15/19 12/10/19 Rx Multivitamins, Thera [Multivitamin 1 tab PO DAILY 11/27/19 12/10/19 History (formulary)] Furosemide [Lasix] 40 mg PO BID #0 12/02/19 12/10/19 Rx Potassium Chloride [Klor-Con 20] 20 meq PO DAILY #0 12/02/19 12/10/19 Rx Insulin Glargine [Lantus] 50 unit SQ DAILY 12/10/19 12/10/19 History guaiFENesin [Mucinex] 600 mg PO Q12H PRN 12/10/19 12/10/19 History predniSONE See Taper PO DAILY 12/10/19 12/10/19 History Allergies Allergy/AdvReac Type Severity Reaction Status Date / Time Iodinated Contrast Media Allergy Unknown, Verified 12/10/19 08:34 POOR RENAL FUNCTIONS Sulfa (Sulfonamide Allergy Unknown Verified 12/10/19 08:34 Antibiotics) latex AdvReac Rash/Hives Verified 12/10/19 08:34 Penicillins AdvReac Rash/Hives Verified 12/10/19 08:34 Physical Exam Vitals: Vital Signs Temp Pulse Resp BP Pulse Ox 12/10/19 09:07 93 20 175/87 96 12/10/19 07:51 98.7 F 86 20 171/81 97 Intake and Output 12/09/19 12/10/19 12/10/19 22:59 06:59 14:59 Other: Weight 106.141 kg Results 12/10/19 04:30 12/10/19 04:30 Cardiac Enzymes 12/10/19 12/10/19 12/10/19 Range/Units 04:30 04:30 08:35 AST 26 (14-36) U/L Troponin I 0.012 0.015 (0.000-0.034) ng/mL 12/10/19 Range/Units 10:57 AST (14-36) U/L Troponin I 0.019 (0.000-0.034) ng/mL Coagulation 12/10/19 Range/Units 04:30 PT 19.8 H (9.0-12.0) sec APTT 27.7 (22.0-30.0) sec CBC 12/10/19 Range/Units 04:30 WBC 11.5 H (3.8-10.6) k/uL RBC 4.18 (3.80-5.40) m/uL Hgb 11.0 L (11.4-16.0) gm/dL Hct 35.5 (34.0-46.0) % Plt Count 296 (150-450) k/uL Comprehensive Metabolic Panel 12/10/19 Range/Units 04:30 Sodium 136 L (137-145) mmol/L Potassium 4.3 (3.5-5.1) mmol/L Chloride 99 (98-107) mmol/L Carbon Dioxide 32 H (22-30) mmol/L BUN 26 H (7-17) mg/dL Creatinine 1.02 (0.52-1.04) mg/dL Glucose 237 H (74-99) mg/dL Calcium 9.5 (8.4-10.2) mg/dL AST 26 (14-36) U/L ALT 19 (4-34) U/L Alkaline Phosphatase 78 (38-126) U/L Total Protein 7.0 (6.3-8.2) g/dL Albumin 3.8 (3.5-5.0) g/dL Current Medications Generic Name Dose Route Start Last Admin Trade Name Freq PRN Reason Stop Dose Admin Albuterol/Ipratropium 3 ml 12/10/19 12:00 Ipratropium-Albuterol 3 Ml Neb INHALATION RT-Q4H JS Albuterol/Ipratropium 3 ml 12/10/19 11:59 Ipratropium-Albuterol 3 Ml Neb INHALATION RT-Q2H PRN Shortness Of Breath Or Wheezing Atorvastatin Calcium 10 mg 12/10/19 11:45 Atorvastatin 10 Mg Tab PO DAILY [facility] Budesonide 1 mg 12/10/19 20:00 Budesonide 1 Mg/2 Ml Nebu INHALATION RT-BID [facility] Diltiazem HCl 180 mg 12/10/19 11:45 Diltiazem Cd 180 Mg Cap.Er.24h PO DAILY [facility] Ferrous Sulfate 325 mg 12/11/19 09:00 Ferrous Sulfate 325 Mg Tab PO DAILY [facility] Formoterol Fumarate 20 mcg 12/10/19 20:00 Formoterol Fumarate 20 Mcg/2 Ml Nebu INHALATION RT-BID [facility] Furosemide 40 mg 12/10/19 16:00 Furosemide 40 Mg Tab PO BID@0900,1600 JS Levofloxacin 500 mg/ IV 100 mls @ 100 mls/hr 12/10/19 13:00 Solution IVPB Q24H JS Levothyroxine Sodium 50 mcg 12/11/19 06:30 Levothyroxine 50 [place] [address] [facility] Losartan Potassium 100 mg 12/10/19 11:45 Losartan 50 Mg Tab PO DAILY [facility] Methylprednisolone Sodium Succinate 60 mg 12/10/19 12:30 Methylprednisolone Sod Succi 125 Mg/2 Ml Vial IV Q6HR [facility] Metoprolol Tartrate 25 mg 12/10/19 11:45 Metoprolol Tartrate 25 Mg Tab PO BID [facility] Miscellaneous Information 1 each 12/10/19 12:41 Warfarin Per Pharmacy MISCELLANE DIRECTED PRN INR Pantoprazole Sodium 40 mg 12/11/19 07:30 Pantoprazole 40 Mg Tablet PO AC-BRKFST [facility] Tramadol HCl 50 mg 12/10/19 12:24 Tramadol 50 Mg Tab PO TID PRN Pain Warfarin Sodium 2.5 mg 12/10/19 18:00 Warfarin 2.5 Mg Tab PO DAILY@1800 [facility] Protocol Intake and Output 12/09/19 12/10/19 12/10/19 22:59 06:59 14:59 Other: Weight 106.141 kg Patient Weight 12/11/19 06:59 Weight 106.141 kg 12/10/19 04:30 12/10/19 04:30
[2019-12-10] MEDS: IPRATROPIUM-ALBUTEROL 3 ML NEB INHALATION SCH ×3 (15:53→23:33)
--- NOTE | 2019-12-10 16:21 | CONS ---
CONSULTATION This is a 74-year-old female with history of multiple medical problems including underlying COPD with colonization from a Pseudomonas. The patient has had multiple admissions to the hospital with COPD exacerbations. In fact, she was just recently here in the hospital and was actually discharged on December 01 of this year. At that time, she was seen by my partner, Dr. Mendiola in consultation on November 28, 2019. Anyway, the patient comes in with sudden onset of increasing shortness of breath, chest tightness, wheezing and cough. The patient as I mentioned, does have a well- established history of COPD/asthma, as well as colonization with Pseudomonas. The patient has undergone previous bronchoscopies in the past. Currently, she comes in with complaints of chest tightness, wheezing, cough, and yellow phlegm production. She feels very, very congested and her chest is very noisy. She denies any fever or chills. She denies coughing up blood. She denies any chest pain or chest discomfort. Likewise, she denies any nausea, vomiting, diarrhea, abdominal pain or any genitourinary complaints. Again, she was last admitted on November 26 and seen by my partner, Dr. Mendiola on 11/28/2019. PAST MEDICAL HISTORY: Positive for asthma, atrial fibrillation, CHF, COPD, diabetes, GERD, deafness, hypertension, DJD, pneumonia, and hypothyroidism. Other medical problems include hiatal hernia, anemia, chronic hypoxemic respiratory failure, and a previous history of multiple drug-resistant organisms. SURGICAL HISTORY: Includes cataract removal left eye, cholecystectomy and hysterectomy. SOCIAL HISTORY: Negative for tobacco. She denies alcohol or illicit drug use. FAMILY HISTORY: Her mother is healthy. HOME MEDICATIONS: Current home medications include tramadol, prednisone taper, Mucinex, Accolade, warfarin, potassium, Protonix, multivitamins, Mevacor, losartan, loratadine, levothyroxine, albuterol updrafts mix with ipratropium bromide, insulin, Lasix, iron, diltiazem, citalopram, Symbicort, Fosamax, albuterol and Xanax. ALLERGIES: Include IV CONTRAST DYE, SULFA ANTIBIOTICS, LATEX, and PENICILLIN. REVIEW OF SYSTEMS: CONSTITUTIONAL: Negative. NEUROLOGIC: Negative. HEENT: Negative. CARDIOVASCULAR: Negative. PULMONARY: Shortness of breath. chest tightness, wheezing, cough, chest congestion and white clear phlegm production. GI: Negative. : Negative. RHEUMATOLOGIC: Negative. IMMUNOLOGIC: Negative. DERMATOLOGIC: Negative. Current vital signs include a temperature 98.7, heart rate 86, respiratory rate 20, blood pressure 175/87, mean 116 and 3 L saturation 96%. She appears in no acute distress. She does have some mild audible wheezing and some mild conversational dyspnea. No use of accessory muscles. HEENT: Examination is grossly unremarkable. Nasal O2 in place. NECK: Supple, full range of motion. No adenopathy. Neck veins flat. CARDIOVASCULAR: Examination reveals regular rhythm and rate. Heart rate 86 beats per minute. S1, S2 normal. LUNGS: Reveal diffuse coarse inspiratory and expiratory rhonchi and wheezes. Breath sounds are coarse. No crackles. Breath sounds equal bilaterally. ABDOMEN: Obese, bowel sounds are heard. EXTREMITIES: Intact. No cyanosis, clubbing, or edema. SKIN: Without rash. NEUROLOGIC: Examination is brief but nonfocal. LABS: Reviewed. White count 11.5, hemoglobin 11.0, hematocrit 35.5, platelet count 196,000. PT 19.8, INR 3.0. PTT 27.7. Sodium 136, potassium 4.3, chloride 99, CO2 is 32, anion gap 5. BUN and creatinine were 26 and 1.02. Troponins were negative x3. N terminal proBNP was 742. Microbiologic studies are negative. A chest x-ray showed no evidence of acute cardiopulmonary disease. Current medications reviewed. He is currently on Lipitor, Pulmicort 1 mg, Cardizem, iron, formoterol 20 mcg, Lasix, insulin, DuoNeb, Levaquin, levothyroxine, losartan, Solu-Medrol, metoprolol, Protonix, tramadol, and warfarin. ASSESSMENT: 1. COPD exacerbation complicated by tracheobronchitis, in a patient with prior history of colonization with Pseudomonas. 2. History of atrial fibrillation. 3. History of congestive heart failure. 4. History of diabetes mellitus. 5. Gastroesophageal reflux disease. 6. Deafness. 7. Hypertension. 8. Degenerative joint disease. 9. History of pneumonia. 10.Hypothyroidism. 11.Chronic hypoxemic respiratory failure. PLAN: The patient's medications were adjusted. The patient is currently on DuoNeb q.i.d. and p.r.n., Solu-Medrol 60 mg q.6 as well as Levaquin and both Perforomist 20 mcg mix with Pulmicort 1 mg twice a day. Additional recommendations and suggestions are forthcoming. We did put her on the bronch schedule tomorrow. The last time she was here when I saw her, it seemed like her recovery was made speedier by bronchoscopy and BAL. KATHERINE / PENNIE: [id number] /
[2019-12-10 16:34] LABS: Glucose,Whole Blood 347 mg/dL (75-99)
[2019-12-10] MEDS ORDERED: WARFARIN 2.5 MG TAB PO SCH (18:00)
[2019-12-10] MEDS: INSULIN ASPART (NovoLOG) 100 UNIT/ML VIAL SQ SCH ×2 (18:34→21:23)
[2019-12-10] MEDS: BUDESONIDE 1 MG/2 ML NEBU INHALATION SCH (19:52)
[2019-12-10] MEDS: FORMOTEROL FUMARATE 20 MCG/2 ML NEBU INHALATION SCH (19:52)
[2019-12-10 20:42] LABS: Glucose,Whole Blood 222 mg/dL (75-99)
[2019-12-10] MEDS ORDERED: WARFARIN 5 MG TAB PO SCH (21:00)
[2019-12-11] MEDS: methylPREDNISolone SOD SUCCI 125 MG/2 ML VIAL IV SCH ×3 (00:15→12:35)
[2019-12-11] MEDS: ALPRAZolam 0.5 MG TAB PO PRN ×2 (00:26→09:24)
[2019-12-11] MEDS: IPRATROPIUM-ALBUTEROL 3 ML NEB INHALATION SCH ×7 (00:30→23:48)
[2019-12-11] MEDS: PANTOPRAZOLE 40 MG TABLET PO SCH (06:05)
[2019-12-11] MEDS: LEVOTHYROXINE 50 MCG TAB PO SCH (06:05)
[2019-12-11 06:18] LABS: Glucose,Whole Blood 148 mg/dL (75-99)
[2019-12-11] MEDS: INSULIN ASPART (NovoLOG) 100 UNIT/ML VIAL SQ SCH ×4 (06:24→20:51)
[2019-12-11] MEDS: BUDESONIDE 1 MG/2 ML NEBU INHALATION SCH ×2 (07:36→20:09)
[2019-12-11] MEDS: FORMOTEROL FUMARATE 20 MCG/2 ML NEBU INHALATION SCH ×2 (07:36→20:09)
[2019-12-11 08:05] LABS: INR 2.6 (<1.2)
[2019-12-11 08:14] LABS: Anisocytosis Slight; Basophils % (A) 0 %; Eosinophils % (A) 0 %; HCT 32.3 % (34.0-46.0); HGB 10.4 gm/dL (11.4-16.0); Hypochromasia Moderate; Lymphocytes # (A) 0.9 k/uL (1.0-4.8); Lymphocytes % (A) 8 %; MCH 27.7 pg (25.0-35.0); MCV 86.5 fL (80.0-100.0); Mean Platelet Volume 6.8; Monocytes # (A) 0.1 k/uL (0-1.0); Monocytes % (A) 1 %; Neutrophils # (A) 9.3 k/uL (1.3-7.7); Neutrophils % (A) 90 %; Platelet Count 237 k/uL (150-450); Poikilocytosis Slight; RBC 3.74 m/uL (3.80-5.40); RDW 16.6 % (11.5-15.5); WBC 10.2 k/uL (3.8-10.6)
[2019-12-11 08:18] LABS: Calcium 8.5 mg/dL (8.4-10.2); Potassium 4.4 mmol/L (3.5-5.1)
[2019-12-11] MEDS ORDERED: ASPIRIN 325 MG TAB PO SCH (09:00)
[2019-12-11] MEDS: LOSARTAN 50 MG TAB PO SCH (09:24)
[2019-12-11] MEDS: METOPROLOL TARTRATE 25 MG TAB PO SCH ×2 (09:24→20:51)
[2019-12-11] MEDS: DILTIAZEM CD 180 MG CAP.ER.24H PO SCH (09:25)
[2019-12-11] MEDS ORDERED: PROPOFOL 10 MG/ML 20 ML VIAL IV ONE (11:25)
[2019-12-11] MEDS ORDERED: IV FLUID CONTINUATION 1,000 ML IV ONE ×2 (11:25)
[2019-12-11] MEDS ORDERED: LIDOCAINE 1% INJ 10MG/ML (20 ML MDV) ONE (11:25)
[2019-12-11] MEDS ORDERED: fentaNYL (PF) 50 MCG/ML 2 ML AMP ONE (11:25)
[2019-12-11] MEDS ORDERED: LIDOCAINE 2% INJ 20 MG/ML INTRATRACH ONE (11:38)
[2019-12-11 12:13] LABS: Glucose,Whole Blood 218 mg/dL (75-99)
[2019-12-11] MEDS: FUROSEMIDE 40 MG TAB PO SCH ×2 (12:34→16:08)
[2019-12-11] MEDS: FERROUS SULFATE 325 MG TAB PO SCH (12:34)
[2019-12-11] MEDS: ATORVASTATIN 10 MG TAB PO SCH (12:35)
[2019-12-11] MEDS: LEVOFLOXACIN 500MG-D5W PMX 500 MG in DEXTROSE/WATER 1 100ML.BAG IVPB SCH (12:35)
--- NOTE | 2019-12-11 12:50 | P.PN ---
Subjective This is a pleasant 74 years old female with multiple medical problems as below. Patient was recently discharged from this hospital 11/26-12/01 for COPD with colonization with Pseudomonas aeruginosa and fluid overload. And possible cellulitis of the lower extremities. She was discharged on tapering steroids and other medication she was at home to her therapy and she was doing well upon discharge over few days ago she started getting coughing with shortness of breath and chest pain with coughing which mainly central. Although workup seems with however nothing was coming up. No complaints about her leg and cellulitis of lower extremity looks resoled. No problem regarding her urine or bowel. Vitas looks stable, blood pressure on the high side 175/87 Labs showing mild leukocytosis of 11.5 K, +10.4 upon discharge last time however she was on steroids at home. INR is 2.0. BMP and liver enzymes were unremarkable. Serial troponins are negative 3. Lipase is normal at 52 Chest x-ray: No acute process. EKG shows sinus tachycardia at [address]-T changes and QTC 433. Cardiology and pulmonary team were consulted 12/11/2019 Physician still wheezing and although she feels less dyspneic and she needs to to 3 L of oxygen via nasal cannula Vital signs labs looks stable, her INR today is 2.6, creatinine 1.08. Sugar is mildly elevated. Patient remains on Solu-Medrol and IV Levaquin. Also she is on warfarin for her A. fib and chronic CHF Pulmonary team on the case for possible bronchoscopy Review of Systems CONSTITUTIONAL: No fever, no malaise, no fatigue. HEENT: No recent visual problems or hearing problems. Denied any sore throat. CARDIOVASCULAR: No orthopnea, PND, no palpitations, no syncope. PULMONARY: No upper respiratory symptoms, no hemoptysis. GASTROINTESTINAL: No diarrhea, no nausea, no vomiting, no abdominal pain. Normoactive bowel sounds. NEUROLOGICAL: No headaches, no weakness, no numbness. HEMATOLOGICAL: Denies any bleeding or petechiae. Active Medications Generic Name Dose Route Start Last Admin Trade Name Freq PRN Reason Stop Dose Admin Albuterol/Ipratropium 3 ml 12/10/19 12:00 12/11/19 11:25 Ipratropium-Albuterol 3 Ml Neb INHALATION Not Given RT-Q4H JS Albuterol/Ipratropium 3 ml 12/10/19 11:59 Ipratropium-Albuterol 3 Ml Neb INHALATION RT-Q2H PRN Shortness Of Breath Or Wheezing Alprazolam 0.5 mg 12/11/19 00:22 12/11/19 09:24 Alprazolam 0.5 Mg Tab PO 0.5 mg TID PRN Administration Anxiety Atorvastatin Calcium 10 mg 12/10/19 11:45 12/11/19 12:35 Atorvastatin 10 Mg Tab PO 10 mg DAILY JS Administration Budesonide 1 mg 12/10/19 20:00 12/11/19 07:36 Budesonide 1 Mg/2 Ml Nebu INHALATION 1 mg RT-BID JS Administration Diltiazem HCl 180 mg 12/10/19 11:45 12/11/19 09:25 Diltiazem Cd 180 Mg Cap.Er.24h PO 180 mg DAILY JS Administration Ferrous Sulfate 325 mg 12/11/19 09:00 12/11/19 12:34 Ferrous Sulfate 325 Mg Tab PO 325 mg DAILY JS Administration Fluconazole 100 mg 12/11/19 21:00 Fluconazole 100 Mg Tab PO BID JS Formoterol Fumarate 20 mcg 12/10/19 20:00 12/11/19 07:36 Formoterol Fumarate 20 Mcg/2 Ml Nebu INHALATION 20 mcg RT-BID JS Administration Furosemide 40 mg 12/10/19 16:00 12/11/19 12:34 Furosemide 40 Mg Tab PO 40 mg BID@0900,1600 JS Administration Levofloxacin 500 mg/ IV 100 mls @ 100 mls/hr 12/10/19 13:00 12/11/19 12:35 Solution IVPB 100 mls/hr Q24H JS Administration Insulin Aspart 0 unit 12/10/19 17:30 12/11/19 12:41 Insulin Aspart (Novolog) 100 Unit/Ml Vial SQ 7 unit ACHS JS Administration Protocol Levothyroxine Sodium 50 mcg 12/11/19 06:30 12/11/19 06:05 Levothyroxine 50 Mcg Tab PO Not Given 0630 JS Losartan Potassium 100 mg 12/10/19 11:45 12/11/19 09:24 Losartan 50 Mg Tab PO 100 mg DAILY JS Administration Methylprednisolone Sodium Succinate 60 mg 12/10/19 12:30 12/11/19 12:35 Methylprednisolone Sod Succi 125 Mg/2 Ml Vial IV 60 mg Q6HR JS Administration Metoprolol Tartrate 25 mg 12/10/19 11:45 12/11/19 09:24 Metoprolol Tartrate 25 Mg Tab PO 25 mg BID [facility] Administration Miscellaneous Information 1 each 12/10/19 12:41 Warfarin Per Pharmacy MISCELLANE DIRECTED PRN INR Pantoprazole Sodium 40 mg 12/11/19 07:30 12/11/19 06:05 Pantoprazole 40 Mg Tablet PO Not Given AC-BRKFST [facility] Tramadol HCl 50 mg 12/10/19 12:24 Tramadol 50 Mg Tab PO TID PRN Pain Warfarin Sodium 2 mg 12/11/19 18:00 Warfarin 2 Mg Tab PO DAILY@1800 [facility] Protocol Objective - Vital Signs Vital signs: Vital Signs Temp 98.4 F 12/11/19 08:00 Pulse 81 12/11/19 08:00 Resp 20 12/11/19 08:00 BP 172/80 12/11/19 08:00 Pulse Ox 94 L 12/11/19 08:00 Intake & Output 12/10/19 12/11/19 12/11/19 18:59 06:59 18:59 Intake Total 240 100 Output Total 700 Balance 240 -700 100 Weight 106.141 kg 103.9 kg Intake: IV 100 Oral 240 Output: Urine 700 Other: Voiding Method Bedside Commode Bedside Commode Bedside Commode # Voids 2 3 - Exam GENERAL: The patient is alert and oriented x3, not in any acute distress. Well developed, well nourished. HEENT: Pupils are round and equally reacting to light. EOMI. No scleral icterus. No conjunctival pallor. Normocephalic, atraumatic. No pharyngeal erythema. No thyromegaly. CARDIOVASCULAR: S1 and S2 present. No murmurs, rubs, or gallops. -PULMONARY: Chest is clear to auscultation, bilateral harsh wheezing ABDOMEN: Soft, nontender, nondistended, normoactive bowel sounds. No palpable organomegaly. MUSCULOSKELETAL: No joint swelling or deformity. EXTREMITIES: No cyanosis, clubbing, or pedal edema. No cellulitis NEUROLOGICAL: Gross neurological examination did not reveal any focal deficits. SKIN: No rashes. No petechiae - Labs CBC & Chem 7: 12/11/19 07:13 12/11/19 07:13 Labs: Abnormal Lab Results - Last 24 Hours (Table) 12/10/19 12/10/1920 Range/Units 16:33 20:41 06:16 RBC (3.80-5.40) m/uL Hgb (11.4-16.0) gm/dL Hct (34.0-46.0) % RDW (11.5-15.5) % Neutrophils # (1.3-7.7) k/uL Lymphocytes # (1.0-4.8) k/uL PT (9.0-12.0) sec INR (<1.2) Carbon Dioxide (22-30) mmol/L BUN (7-17) mg/dL Creatinine (0.52-1.04) mg/dL Glucose (74-99) mg/dL POC Glucose (mg/dL) 347 H 222 H 148 H (75-99) mg/dL LDL Cholesterol, Calc (0-99) mg/dL HDL Cholesterol (40-60) mg/dL 12/11/19 12/11/19 12/11/19 Range/Units 07:13 07:13 07:13 RBC 3.74 L (3.80-5.40) m/uL Hgb 10.4 L (11.4-16.0) gm/dL Hct 32.3 L (34.0-46.0) % RDW 16.6 H (11.5-15.5) % Neutrophils # 9.3 H (1.3-7.7) k/uL Lymphocytes # 0.9 L (1.0-4.8) k/uL PT 25.0 H (9.0-12.0) sec INR 2.6 H (<1.2) Carbon Dioxide 32 H (22-30) mmol/L BUN 30 H (7-17) mg/dL Creatinine 1.08 H (0.52-1.04) mg/dL Glucose 145 H (74-99) mg/dL POC Glucose (mg/dL) (75-99) mg/dL LDL Cholesterol, Calc 101 H (0-99) mg/dL HDL Cholesterol 77 H (40-60) mg/dL 12/11/19 Range/Units 12:06 RBC (3.80-5.40) m/uL Hgb (11.4-16.0) gm/dL Hct (34.0-46.0) % RDW (11.5-15.5) % Neutrophils # (1.3-7.7) k/uL Lymphocytes # (1.0-4.8) k/uL PT (9.0-12.0) sec INR (<1.2) Carbon Dioxide (22-30) mmol/L BUN (7-17) mg/dL Creatinine (0.52-1.04) mg/dL Glucose (74-99) mg/dL POC Glucose (mg/dL) 218 H (75-99) mg/dL LDL Cholesterol, Calc (0-99) mg/dL HDL Cholesterol (40-60) mg/dL Assessment and Plan Assessment: -Acute Shortness of breath: Secondary to severe bronchitis, . Possible colonization with Pseudomonas, On 2 L nasal cannula which she is at baseline. Consult pulmonary service. May need bronchoscopy -CHF with diastolic dysfunction, possible right-sided heart failure: Last time her physician increased dose of Lasix to 40 mg oral twice daily upon discharge. Consult cardiology -Cellulitis of the left lower extremity with bilateral pedal edema: Discharged on Keflex for 7 days upon discharge last week -mild leukocytosis could be due to recent steroids intake, we'll keep monitoring- -Chronic bronchial asthma chronic persistent asthma -Chronic hypoxic respiratory failure 2 L nasal cannula which she uses at home -Proximal A. fib therapy, INR subtherapeutic: Coumadin increased to 5 mg during hospitalization, she will decrease the dose of Coumadin to 2.5 she is on Levaquin -Type 2 diabetes mellitus: continue on Levemir at 50 units daily during course of prednisone, and then resume previous home dose once taper is completed. -Hypertension -Hypothyroidism -Possible interstitial lung disease, chronic interstitial changes present on chest x-ray -Moderate to severe chronic pulmonary hypertension DVT prophylaxisOn Coumadin GI Prophylaxis: Pepcid PT/OT: Pending
[2019-12-11 15:00] VITALS: BMI 38.1
--- NOTE | 2019-12-11 15:01 | P.PN ---
Subjective Progress Note Date: 12/11/19 Principal diagnosis: COPD exacerbation, acute tracheobronchitis This is a 74-year-old white female patient who follows in our pulmonary clinic for her chronic history of COPD and chronic tracheobronchitis. Patient has had frequent admissions for complications related to tracheobronchitis, and her sputum cultures have been positive for pseudomonas. Patient came into the [facility] department on 12/10/2019 with complaints of worsening shortness of breath, her chest x-ray showed no evidence of acute cardiopulmonary abnormality, but she was quite bronchospastic, short of breath, she is not able to bring up much sputum. We started the patient on Levaquin the steroids, and nebulized bronchodilators, but knowing patient's history, currently maintained the patient nothing by mouth and placed the patient on the list for bronchoscopy with BAL today. Patient tolerated procedure very well, large amount of thin yellow secretions were removed, bronchial lavage cultures were sent. Objective - Vital Signs Vital signs: Vital Signs Temp 98.1 F 12/11/19 12:00 Pulse 102 H 12/11/19 12:00 Resp 18 12/11/19 12:00 BP 167/82 12/11/19 12:00 Pulse Ox 97 12/11/19 12:00 Intake & Output 12/10/19 12/11/19 12/11/19 18:59 06:59 18:59 Intake Total 240 510 Output Total 700 Balance 240 -700 510 Weight 106.141 kg 103.9 kg Intake: IV 100 Intake, IV Titration 170 Amount IV Fluid Continuation 1, 70 000 ml @ 0 mls/hr IV .STK -[facility] Rx#:[id number] Levofloxacin 500Mg-D5w 100 Pmx 500 mg In Dextrose/ Water 1 100ml.bag @ 100 mls/hr IVPB Q24H [facility] Rx#: [id number] Oral 240 240 Output: Urine 700 Other: Voiding Method Bedside Commode Bedside Commode Bedside Commode # Voids 2 3 - Exam GENERAL EXAM: Alert, very pleasant, 74-year-old white female on 3 L of oxygen and the pulse ox 97% comfortable in no apparent distress. HEAD: Normocephalic/atraumatic. EYES: Normal reaction of pupils, equal size. Conjunctiva pink, sclera white. NOSE: Clear with pink turbinates. THROAT: No erythema or exudates. NECK: No masses, no JVD, no thyroid enlargement, no adenopathy. CHEST: No chest wall deformity. Symmetrical expansion. LUNGS: Equal air entry with diffuse wheezes and rhonchi CVS: Regular rate and rhythm, normal S1 and S2, no gallops, no murmurs, no rubs ABDOMEN: Soft, nontender. No hepatosplenomegaly, normal bowel sounds, no guarding or rigidity. EXTREMITIES: No clubbing, no edema, no cyanosis, 2+ pulses and upper and lower extremities. MUSCULOSKELETAL: Muscle strength and tone normal. SPINE: No scoliosis or deformity SKIN: No rashes CENTRAL NERVOUS SYSTEM: Alert and oriented -3. No focal deficits, tone is normal in all 4 extremities. PSYCHIATRIC: Alert and oriented -3. Appropriate affect. Intact judgment and insight. - Labs CBC & Chem 7: 12/11/19 07:13 12/11/19 07:13 Labs: Abnormal Lab Results - Last 24 Hours (Table) 12/10/19 12/10/19 12/11/19 Range/Units 16:33 20:41 06:16 RBC (3.80-5.40) m/uL Hgb (11.4-16.0) gm/dL Hct (34.0-46.0) % RDW (11.5-15.5) % Neutrophils # (1.3-7.7) k/uL Lymphocytes # (1.0-4.8) k/uL PT (9.0-12.0) sec INR (<1.2) Carbon Dioxide (22-30) mmol/L BUN (7-17) mg/dL Creatinine (0.52-1.04) mg/dL Glucose (74-99) mg/dL POC Glucose (mg/dL) 347 H 222 H 148 H (75-99) mg/dL LDL Cholesterol, Calc (0-99) mg/dL HDL Cholesterol (40-60) mg/dL 12/11/19 12/11/19 12/11/19 Range/Units 07:13 07:13 07:13 RBC 3.74 L (3.80-5.40) m/uL Hgb 10.4 L (11.4-16.0) gm/dL Hct 32.3 L (34.0-46.0) % RDW 16.6 H (11.5-15.5) % Neutrophils # 9.3 H (1.3-7.7) k/uL Lymphocytes # 0.9 L (1.0-4.8) k/uL PT 25.0 H (9.0-12.0) sec INR 2.6 H (<1.2) Carbon Dioxide 32 H (22-30) mmol/L BUN 30 H (7-17) mg/dL Creatinine 1.08 H (0.52-1.04) mg/dL Glucose 145 H (74-99) mg/dL POC Glucose (mg/dL) (75-99) mg/dL LDL Cholesterol, Calc 101 H (0-99) mg/dL HDL Cholesterol 77 H (40-60) mg/dL // Range/Units 12:06 RBC (3.80-5.40) m/uL Hgb (11.4-16.0) gm/dL Hct (34.0-46.0) % RDW (11.5-15.5) % Neutrophils # (1.3-7.7) k/uL Lymphocytes # (1.0-4.8) k/uL PT (9.0-12.0) sec INR (<1.2) Carbon Dioxide (22-30) mmol/L BUN (7-17) mg/dL Creatinine (0.52-1.04) mg/dL Glucose (74-99) mg/dL POC Glucose (mg/dL) 218 H (75-99) mg/dL LDL Cholesterol, Calc (0-99) mg/dL HDL Cholesterol (40-60) mg/dL Assessment and Plan Plan: Assessment: #1. Exacerbation of COPD complicated by tracheobronchitis with the patient with prior history of colonization with Pseudomonas #2. History of paroxysmal atrial fibrillation #3. History of diabetes mellitus type 2 #4. GERD/reflux #5. Patient started hearing #6. Hypertension #7. Degenerative joint disease #8. History of pneumonia #9. Hypothyroidism #10. Chronic hypoxic respiratory failure related to COPD #11. Chronic kidney disease stage II #12. Chronic interstitial changes present chest x-ray likely related to underlying pulmonary fibrosis/scarring from previous pulmonary infections Plan: Continue current antibiotics, patient tolerated bronchoscopy well, large amount of secretions were removed, will await results of the bronch lavage culture, continue with IV steroids and nebulized bronchodilators, will continue to follow I performed a history & physical examination of the patient and discussed their management with my nurse practitioner, Maryjo Parisi. I reviewed the nurse practitioner's note and agree with the documented findings and plan of care. Lung sounds are positive for diffuse wheezes throughout the lung carrera. The findings and the impression was discussed with the patient. I attest to the documentation by the nurse practitioner. Time with Patient: Less than 30
[2019-12-11 17:08] LABS: Glucose,Whole Blood 371 mg/dL (75-99)
[2019-12-11] MEDS ORDERED: INSULIN ASPART (NovoLOG) 100 UNIT/ML VIAL SQ ONE (17:30)
[2019-12-11] MEDS: WARFARIN 2 MG TAB PO SCH (17:31)
--- NOTE | 2019-12-11 18:48 | PCN ---
PROCEDURE NOTE PROCEDURE: Bronchoscopy, airway examination, therapeutic lavage, bronchoalveolar lavage, right middle lobe. PREOPERATIVE DIAGNOSIS: Retained secretions, severe asthma. POSTOPERATIVE DIAGNOSIS: Retained secretions, severe asthma. OPERATORS: 1. Dr. Butler. 2. Michelle Parisi. The patient's procedure took place in room #1. There was informed consent and universal timeout. BLEMISH REMOVER provided general anesthesia. PROCEDURE DESCRIPTION: After the patient was adequately sedated and being fully monitored, the bronchoscope was inserted through the right nostril. It passed through the right nasopharynx into the oropharynx. The hypopharynx was identified. The hypopharyngeal structures, including anterior commissure, true cords, false cords, arytenoids, piriform sinuses, right and left valleculae and epiglottis, all appeared relatively normal, save for a small amount of yeast on the vocal cords. The glottic opening was topicalized. The bronchoscope was pushed through the glottic opening into the trachea. There was a mild to moderate degree of tracheomalacia within the trachea. Tracheal ester was sharp. The right and left mainstem were topicalized. There were thick secretions noted bilaterally. The right upper lobe and its 3 segments, right middle lobe and its 2 segments, right lower lobe and its 5 segments, left upper lobe proper and its 2 segments, lingula and its 2 segments, and left lower lobe and its 4 segments all had bronchial erythema and hyperemia. There were thick secretions. They were suctioned with some difficulty. There was also some bronchomalacia noted. There was no dominant mass or tumor. There was some mucosal friability and some vascular engorgement. Next the bronchoscope was wedged into the right middle lobe. BAL took place. Thirty mL was recovered. The fluid was somewhat cloudy. There was no dominant mass on the right side. Afterwards, the bronchoscope was withdrawn and the additional secretions were suctioned and the bronchoscope was removed and the patient will be recovered. The patient tolerated the procedure well. The fluid will be sent for analysis. MMODL / IJN: [id number] /
[2019-12-11 20:18] LABS: Glucose,Whole Blood 361 mg/dL (75-99)
[2019-12-11] MEDS ORDERED: hydrALAZINE HCL 25 MG TAB PO PRN (20:19)
[2019-12-11] MEDS: methylPREDNISolone SOD SUCCI 40 MG/ML 1 ML VIAL IV SCH (20:51)
[2019-12-11] MEDS: INSULIN DETEMIR (LEVEMIR) 100 UNIT/ML SYR SQ SCH (20:51)
[2019-12-11] MEDS: FLUCONAZOLE 100 MG TAB PO SCH (20:51)
[2019-12-12] MEDS: ALPRAZolam 0.5 MG TAB PO PRN ×2 (00:24→18:19)
[2019-12-12 06:17] LABS: Glucose,Whole Blood 182 mg/dL (75-99)
[2019-12-12] MEDS: PANTOPRAZOLE 40 MG TABLET PO SCH (06:27)
[2019-12-12] MEDS: LEVOTHYROXINE 50 MCG TAB PO SCH (06:27)
[2019-12-12] MEDS: INSULIN ASPART (NovoLOG) 100 UNIT/ML VIAL SQ SCH ×4 (06:27→21:17)
[2019-12-12 07:39] LABS: Anisocytosis Slight; Basophils % (A) 0 %; Eosinophils % (A) 0 %; HCT 32.6 % (34.0-46.0); HGB 9.9 gm/dL (11.4-16.0); Hypochromasia Moderate; Lymphocytes # (A) 0.8 k/uL (1.0-4.8); Lymphocytes % (A) 6 %; MCH 26.6 pg (25.0-35.0); MCHC 30.5 g/dL (31.0-37.0); MCV 87.1 fL (80.0-100.0); Mean Platelet Volume 6.9; Monocytes # (A) 0.5 k/uL (0-1.0); Monocytes % (A) 3 %; Neutrophils # (A) 13.2 k/uL (1.3-7.7); Neutrophils % (A) 91 %; Platelet Count 234 k/uL (150-450); RBC 3.74 m/uL (3.80-5.40); RDW 16.7 % (11.5-15.5); WBC 14.6 k/uL (3.8-10.6)
[2019-12-12 07:51] LABS: INR 2.6 (<1.2); Prothrombin Time 24.9 sec (9.0-12.0)
[2019-12-12] MEDS: IPRATROPIUM-ALBUTEROL 3 ML NEB INHALATION SCH ×5 (07:54→23:51)
[2019-12-12] MEDS: BUDESONIDE 1 MG/2 ML NEBU INHALATION SCH ×2 (07:54→20:35)
[2019-12-12] MEDS: FORMOTEROL FUMARATE 20 MCG/2 ML NEBU INHALATION SCH ×2 (07:54→20:35)
[2019-12-12 08:05] LABS: Calcium 8.3 mg/dL (8.4-10.2); Potassium 4.4 mmol/L (3.5-5.1)
[2019-12-12] MEDS: methylPREDNISolone SOD SUCCI 40 MG/ML 1 ML VIAL IV SCH ×2 (08:25→21:00)
[2019-12-12] MEDS: FERROUS SULFATE 325 MG TAB PO SCH (08:26)
[2019-12-12] MEDS: FLUCONAZOLE 100 MG TAB PO SCH ×2 (08:26→21:01)
[2019-12-12] MEDS: LOSARTAN 50 MG TAB PO SCH (08:26)
[2019-12-12] MEDS: FUROSEMIDE 40 MG TAB PO SCH (08:26)
[2019-12-12] MEDS: DILTIAZEM CD 180 MG CAP.ER.24H PO SCH (08:26)
[2019-12-12] MEDS: METOPROLOL TARTRATE 25 MG TAB PO SCH ×2 (08:26→21:01)
[2019-12-12] MEDS: ATORVASTATIN 10 MG TAB PO SCH (08:26)
--- NOTE | 2019-12-12 10:15 | P.PN ---
Subjective This is a pleasant 74 years old female with multiple medical problems as below. Patient was recently discharged from this hospital 11/26-12/01 for COPD with colonization with Pseudomonas aeruginosa and fluid overload. And possible cellulitis of the lower extremities. She was discharged on tapering steroids and other medication she was at home to her therapy and she was doing well upon discharge over few days ago she started getting coughing with shortness of breath and chest pain with coughing which mainly central. Although workup seems with however nothing was coming up. No complaints about her leg and cellulitis of lower extremity looks resoled. No problem regarding her urine or bowel. Vitas looks stable, blood pressure on the high side 175/87 Labs showing mild leukocytosis of 11.5 K, +10.4 upon discharge last time however she was on steroids at home. INR is 2.0. BMP and liver enzymes were unremarkable. Serial troponins are negative 3. Lipase is normal at 52 Chest x-ray: No acute process. EKG shows sinus tachycardia at [address]-T changes and QTC 433. Cardiology and pulmonary team were consulted 12/11/2019 Physician still wheezing and although she feels less dyspneic and she needs to to 3 L of oxygen via nasal cannula Vital signs labs looks stable, her INR today is 2.6, creatinine 1.08. Sugar is mildly elevated. Patient remains on Solu-Medrol and IV Levaquin. Also she is on warfarin for her A. fib and chronic CHF Pulmonary team on the case for possible bronchoscopy 12/12/2019 Patient is breathing easier today however she still have significant wheezing on examination. She is status post bronchoscopy yesterday and bronchoalveolar lymphatics there is done with cultures pending She is saturating 90s on 3 L oxygen via nasal cannula. However her labs showing mild leukocytosis today but she is on steroids. Also her creatinine went up today to 1.6, her losartan was increased to 2 days ago from home dose of 50 100 MG BY [employer]. ALSO SHE IS ON LASIX 40 MG TWICE DAILY, WE WILL ALLOW HER TO 2 ONCE DAILY FOR NOW Keep monitoring creatinine and if escape worsen and then we will consider further workup or nephrology consult. Discussed with the staff to check bladder scan. No episodes of hypotension actually patient is hypertensive Review of Systems CONSTITUTIONAL: No fever, no malaise, no fatigue. HEENT: No recent visual problems or hearing problems. Denied any sore throat. CARDIOVASCULAR: No orthopnea, PND, no palpitations, no syncope. PULMONARY: No upper respiratory symptoms, no hemoptysis. GASTROINTESTINAL: No diarrhea, no nausea, no vomiting, no abdominal pain. Normoactive bowel sounds. NEUROLOGICAL: No headaches, no weakness, no numbness. HEMATOLOGICAL: Denies any bleeding or petechiae. Active Medications Generic Name Dose Route Start Last Admin Trade Name Freq PRN Reason Stop Dose Admin Albuterol/Ipratropium 3 ml 12/10/19 12:00 12/12/19 07:54 Ipratropium-Albuterol 3 Ml Neb INHALATION 3 ml RT-Q4H JS Administration Albuterol/Ipratropium 3 ml 12/10/19 11:59 Ipratropium-Albuterol 3 Ml Neb INHALATION RT-Q2H PRN Shortness Of Breath Or Wheezing Alprazolam 0.5 mg 12/11/19 00:22 12/12/19 00:24 Alprazolam 0.5 Mg Tab PO 0.5 mg TID PRN Administration Anxiety Atorvastatin Calcium 10 mg 12/10/19 11:45 12/12/19 08:26 Atorvastatin 10 Mg Tab PO 10 mg DAILY JS Administration Budesonide 1 mg 12/10/19 20:00 12/12/19 07:54 Budesonide 1 Mg/2 Ml Nebu INHALATION 1 mg RT-BID JS Administration Diltiazem HCl 180 mg 12/10/19 11:45 12/12/19 08:26 Diltiazem Cd 180 Mg Cap.Er.24h PO 180 mg DAILY JS Administration Ferrous Sulfate 325 mg 12/11/19 09:00 12/12/19 08:26 Ferrous Sulfate 325 Mg Tab PO 325 mg DAILY JS Administration Fluconazole 100 mg 12/11/19 21:00 12/12/19 08:26 Fluconazole 100 Mg Tab PO 100 mg BID JS Administration Formoterol Fumarate 20 mcg 12/10/19 20:00 12/12/19 07:54 Formoterol Fumarate 20 Mcg/2 Ml Nebu INHALATION 20 mcg RT-BID JS Administration Furosemide 40 mg 12/10/19 16:00 12/12/19 08:26 Furosemide 40 Mg Tab PO 40 mg BID@0900,1600 JS Administration Hydralazine HCl 25 mg 12/11/19 20:19 Hydralazine Hcl 25 Mg Tab PO TID PRN Blood Pressure - High Levofloxacin 500 mg/ IV 100 mls @ 100 mls/hr 12/10/19 13:00 12/11/19 12:35 Solution IVPB 100 mls/hr Q24H JS Administration Insulin Aspart 0 unit 12/10/19 17:30 12/12/19 06:27 Insulin Aspart (Novolog) 100 Unit/Ml Vial SQ 3 unit ACHS JS Administration Protocol Insulin Detemir 50 unit 12/11/19 21:00 12/11/19 20:51 Insulin Detemir (Levemir) 100 Unit/Ml Syr SQ 50 unit HS JS Administration Levothyroxine Sodium 50 mcg 12/11/19 06:30 12/12/19 06:27 Levothyroxine 50 Mcg Tab PO 50 mcg 0630 JS Administration Methylprednisolone Sodium Succinate 40 mg 12/11/19 21:00 12/12/19 08:25 Methylprednisolone Sod Succi 40 Mg/Ml 1 Ml Vial IV 40 mg Q12HR JS Administration Metoprolol Tartrate 25 mg 12/10/19 11:45 12/12/19 08:26 Metoprolol Tartrate 25 Mg Tab PO 25 mg BID JS Administration Miscellaneous Information 1 each 12/10/19 12:41 Warfarin Per Pharmacy MISCELLANE DIRECTED PRN INR Pantoprazole Sodium 40 mg 12/11/19 07:30 12/12/19 06:27 Pantoprazole 40 Mg Tablet PO 40 mg [id number] JS Administration Tramadol HCl 50 mg 12/10/19 12:24 Tramadol 50 Mg Tab PO TID PRN Pain Warfarin Sodium 2 mg 12/11/19 18:00 12/11/19 17:31 Warfarin 2 Mg Tab PO 2 mg DAILY@1800 JS Administration Protocol Objective - Vital Signs Vital signs: Vital Signs Temp 97.9 F 12/12/19 04:00 Pulse 68 12/12/19 08:15 Resp 19 12/12/19 04:00 BP 142/70 12/12/19 04:00 Pulse Ox 98 12/12/19 04:00 Intake & Output 12/11/19 12/12/19 12/12/19 18:59 06:59 18:59 Intake Total 740 118 Output Total 600 500 Balance 140 -500 118 Weight 103.9 kg 104.8 kg Intake: IV 100 Intake, IV Titration 170 Amount IV Fluid Continuation 1, 70 000 ml @ 0 mls/hr IV .STK -[facility] Rx#:[id number] Levofloxacin 500Mg-D5w 100 Pmx 500 mg In Dextrose/ Water 1 100ml.bag @ 100 mls/hr IVPB Q24H [facility] Rx#: [id number] Oral 470 118 Output: Urine 600 500 Other: Voiding Method Bedside Commode Bedside Commode - Exam GENERAL: The patient is alert and oriented x3, not in any acute distress. Well developed, well nourished. HEENT: Pupils are round and equally reacting to light. EOMI. No scleral icterus. No conjunctival pallor. Normocephalic, atraumatic. No pharyngeal erythema. No thyromegaly. CARDIOVASCULAR: S1 and S2 present. No murmurs, rubs, or gallops. -PULMONARY: Chest is clear to auscultation, bilateral harsh wheezing ABDOMEN: Soft, nontender, nondistended, normoactive bowel sounds. No palpable organomegaly. MUSCULOSKELETAL: No joint swelling or deformity. EXTREMITIES: No cyanosis, clubbing, or pedal edema. No cellulitis NEUROLOGICAL: Gross neurological examination did not reveal any focal deficits. SKIN: No rashes. No petechiae - Labs CBC & Chem 7: 12/12/19 07:07 12/12/19 07:07 Labs: Abnormal Lab Results - Last 24 Hours (Table) 12/11/19 12/11/19 12/11/19 Range/Units 12:06 17:05 20:18 WBC (3.8-10.6) k/uL RBC (3.80-5.40) m/uL Hgb (11.4-16.0) gm/dL Hct (34.0-46.0) % MCHC (31.0-37.0) g/dL RDW (11.5-15.5) % Neutrophils # (1.3-7.7) k/uL Lymphocytes # (1.0-4.8) k/uL PT (9.0-12.0) sec INR (<1.2) Sodium (137-145) mmol/L BUN (7-17) mg/dL Creatinine (0.52-1.04) mg/dL Glucose (74-99) mg/dL POC Glucose (mg/dL) 218 H 371 H 361 H (75-99) mg/dL Calcium (8.4-10.2) mg/dL 12/12/19 12/12/19 12/12/19 Range/Units 06:15 07:07 07:07 WBC 14.6 H (3.8-10.6) k/uL RBC 3.74 L (3.80-5.40) m/uL Hgb 9.9 L (11.4-16.0) gm/dL Hct 32.6 L (34.0-46.0) % MCHC 30.5 L (31.0-37.0) g/dL RDW 16.7 H (11.5-15.5) % Neutrophils # 13.2 H (1.3-7.7) k/uL Lymphocytes # 0.8 L (1.0-4.8) k/uL PT 24.9 H (9.0-12.0) sec INR 2.6 H (<1.2) Sodium (137-145) mmol/L BUN (7-17) mg/dL Creatinine (0.52-1.04) mg/dL Glucose (74-99) mg/dL POC Glucose (mg/dL) 182 H (75-99) mg/dL Calcium (8.4-10.2) mg/dL 12/12/19 Range/Units 07:07 WBC (3.8-10.6) k/uL RBC (3.80-5.40) m/uL Hgb (11.4-16.0) gm/dL Hct (34.0-46.0) % MCHC (31.0-37.0) g/dL RDW (11.5-15.5) % Neutrophils # (1.3-7.7) k/uL Lymphocytes # (1.0-4.8) k/uL PT (9.0-12.0) sec INR (<1.2) Sodium 136 L (137-145) mmol/L BUN 55 H (7-17) mg/dL Creatinine 1.63 H (0.52-1.04) mg/dL Glucose 156 H (74-99) mg/dL POC Glucose (mg/dL) (75-99) mg/dL Calcium 8.3 L (8.4-10.2) mg/dL Microbiology - Last 24 Hours (Table) 12/11/19 11:30 Gram Stain - Preliminary Bronchial Washings - Right Bronchial Washings Culture - Preliminary 12/11/19 11:30 Acid Fast Bacilli Culture - Preliminary Bronchial Washings - Right 12/11/19 11:30 Fungal Culture - Preliminary Bronchial Washings - Right Assessment and Plan Assessment: -Acute Shortness of breath: Secondary to severe bronchitis, . Possible colonization with Pseudomonas, On 2 L nasal cannula which she is at baseline. Consult pulmonary service. Status post bronchoscopy. Follow-up culture results -Acute kidney injury, hold losartan and lower lids 6040 mg daily. Monitor creatinine -CHF with diastolic dysfunction, possible right-sided heart failure: Last time her physician increased dose of Lasix to 40 mg oral twice daily upon discharge. Consult cardiology -Cellulitis of the left lower extremity with bilateral pedal edema: Discharged on Keflex for 7 days upon discharge last week -mild leukocytosis could be due to recent steroids intake, we'll keep monitoring- -Chronic bronchial asthma chronic persistent asthma -Chronic hypoxic respiratory failure 2 L nasal cannula which she uses at home -Proximal A. fib therapy, INR subtherapeutic: Coumadin increased to 5 mg during hospitalization, she will decrease the dose of Coumadin to 2.5 she is on Levaquin -Type 2 diabetes mellitus: continue on Levemir at 50 units daily during course of prednisone, and then resume previous home dose once taper is completed. -Hypertension -Hypothyroidism -Possible interstitial lung disease, chronic interstitial changes present on chest x-ray -Moderate to severe chronic pulmonary hypertension DVT prophylaxisOn Coumadin GI Prophylaxis: Pepcid PT/OT: Pending
[2019-12-12 12:06] LABS: Glucose,Whole Blood 348 mg/dL (75-99)
[2019-12-12] MEDS: LEVOFLOXACIN 500MG-D5W PMX 500 MG in DEXTROSE/WATER 1 100ML.BAG IVPB SCH (13:59)
--- NOTE | 2019-12-12 14:14 | P.PN ---
Subjective Progress Note Date: 12/12/19 Principal diagnosis: COPD exacerbation, acute tracheobronchitis This is a 74-year-old white female patient who follows in our pulmonary clinic for her chronic history of COPD and chronic tracheobronchitis. Patient has had frequent admissions for complications related to tracheobronchitis, and her sputum cultures have been positive for pseudomonas. [facility] with complaints of worsening shortness of breath, her chest x-ray showed no evidence of acute cardiopulmonary abnormality, but she was quite bronchospastic, short of breath, she is not able to bring up much sputum. We started the patient on Levaquin the steroids, and nebulized bronchodilators, but knowing patient's history, currently maintained the patient nothing by mouth and placed the patient on the list for bronchoscopy with BAL today. Patient tolerated procedure very well, large amount of thin yellow secretions were removed, bronchial lavage cultures were sent. On 12/12/2019 patient seen in follow-up on selective care unit. Patient is awake and alert, in no acute distress, she sits up in the recliner, still has coughing and wheezing, with exertion, slightly improved. Is on 3 L of oxygen pulse ox of 99%, hemodynamically stable, she's been afebrile, patient is status post bronchoscopy with bronchoalveolar lavage on 9 12/11/2019, bronchial lavage Gram stain showed rare PMNs, few gram-positive cocci, few gram-negative bacilli, some rare budding yeast. Vital signs have been stable, patient continues on Levaquin and yesterday we added Diflucan for evidence of candidiasis on patient's vocal cords. Today's labs patient had worsening of her renal function, her BUN is up to 55, and creatinine is 1.63. Patient continues on IV steroids, breathing treatments, antibiotics, and daily dose of oral Lasix. Objective - Vital Signs Vital signs: Vital Signs Temp 97.4 F L 12/12/19 08:00 Pulse 72 12/12/19 11:58 Resp 18 12/12/19 08:00 BP 142/63 12/12/19 08:00 Pulse Ox 99 12/12/19 08:00 Intake & Output 12/11/19 12/12/19 12/12/19 18:59 06:59 18:59 Intake Total 740 118 Output Total 600 500 240 Balance 140 -500 -122 Weight 103.9 kg 104.8 kg Intake: IV 100 Intake, IV Titration 170 Amount IV Fluid Continuation 1, 70 000 ml @ 0 mls/hr IV .[facility] Rx#:[id number] Levofloxacin 500Mg-D5w 100 Pmx 500 mg In Dextrose/ Water 1 100ml.bag @ 100 mls/hr IVPB Q24H [facility] Rx#: [id number] Oral 470 118 Output: Urine 600 500 240 Other: Voiding Method Bedside Commode Bedside Commode Bedside Commode - Exam GENERAL EXAM: Alert, very pleasant, 74-year-old white female on 3 L of oxygen and the pulse ox 99% comfortable in no apparent distress. HEAD: Normocephalic/atraumatic. EYES: Normal reaction of pupils, equal size. Conjunctiva pink, sclera white. NOSE: Clear with pink turbinates. THROAT: No erythema or exudates. NECK: No masses, no JVD, no thyroid enlargement, no adenopathy. CHEST: No chest wall deformity. Symmetrical expansion. LUNGS: Equal air entry with diffuse wheezes and rhonchi CVS: Regular rate and rhythm, normal S1 and S2, no gallops, no murmurs, no rubs ABDOMEN: Soft, nontender. No hepatosplenomegaly, normal bowel sounds, no guarding or rigidity. EXTREMITIES: No clubbing, no edema, no cyanosis, 2+ pulses and upper and lower extremities. MUSCULOSKELETAL: Muscle strength and tone normal. SPINE: No scoliosis or deformity SKIN: No rashes CENTRAL NERVOUS SYSTEM: Alert and oriented -3. No focal deficits, tone is normal in all 4 extremities. PSYCHIATRIC: Alert and oriented -3. Appropriate affect. Intact judgment and insight. - Labs CBC & Chem 7: 12/12/19 07:07 12/12/19 07:07 Labs: Abnormal Lab Results - Last 24 Hours (Table) 12/11/19 12/11/19 12/12/19 Range/Units 17:05 20:18 06:15 WBC (3.8-10.6) k/uL RBC (3.80-5.40) m/uL Hgb (11.4-16.0) gm/dL Hct (34.0-46.0) % MCHC (31.0-37.0) g/dL RDW (11.5-15.5) % Neutrophils # (1.3-7.7) k/uL Lymphocytes # (1.0-4.8) k/uL PT (9.0-12.0) sec INR (<1.2) Sodium (137-145) mmol/L BUN (7-17) mg/dL Creatinine (0.52-1.04) mg/dL Glucose (74-99) mg/dL POC Glucose (mg/dL) 371 H 361 H 182 H (75-99) mg/dL Calcium (8.4-10.2) mg/dL 12/12/19 12/12/19 12/12/19 Range/Units 07:07 07:07 07:07 WBC 14.6 H (3.8-10.6) k/uL RBC 3.74 L (3.80-5.40) m/uL Hgb 9.9 L (11.4-16.0) gm/dL Hct 32.6 L (34.0-46.0) % MCHC 30.5 L (31.0-37.0) g/dL RDW 16.7 H (11.5-15.5) % Neutrophils # 13.2 H (1.3-7.7) k/uL Lymphocytes # 0.8 L (1.0-4.8) k/uL PT 24.9 H (9.0-12.0) sec INR 2.6 H (<1.2) Sodium 136 L (137-145) mmol/L BUN 55 H (7-17) mg/dL Creatinine 1.63 H (0.52-1.04) mg/dL Glucose 156 H (74-99) mg/dL POC Glucose (mg/dL) (75-99) mg/dL Calcium 8.3 L (8.4-10.2) mg/dL 12/12/19 Range/Units 12:04 WBC (3.8-10.6) k/uL RBC (3.80-5.40) m/uL Hgb (11.4-16.0) gm/dL Hct (34.0-46.0) % MCHC (31.0-37.0) g/dL RDW (11.5-15.5) % Neutrophils # (1.3-7.7) k/uL Lymphocytes # (1.0-4.8) k/uL PT (9.0-12.0) sec INR (<1.2) Sodium (137-145) mmol/L BUN (7-17) mg/dL Creatinine (0.52-1.04) mg/dL Glucose (74-99) mg/dL POC Glucose (mg/dL) 348 H (75-99) mg/dL Calcium (8.4-10.2) mg/dL Microbiology - Last 24 Hours (Table) 12/11/19 11:30 Gram Stain - Preliminary Bronchial Washings - Right Bronchial Washings Culture - Preliminary 12/11/19 11:30 Acid Fast Bacilli Culture - Preliminary Bronchial Washings - Right 12/11/19 11:30 Fungal Culture - Preliminary Bronchial Washings - Right Assessment and Plan Plan: Assessment: #1. Exacerbation of COPD complicated by tracheobronchitis with the patient with prior history of colonization with Pseudomonas, status post bronchoscopy with bronchoalveolar lavage on 12/12/2019 #2. History of paroxysmal atrial fibrillation #3. History of diabetes mellitus type 2 #4. GERD/reflux #5. Patient started hearing #6. Hypertension #7. Degenerative joint disease #8. History of pneumonia #9. Hypothyroidism #10. Chronic hypoxic respiratory failure related to COPD #11. Chronic kidney disease stage II #12. Chronic interstitial changes present chest x-ray likely related to underlying pulmonary fibrosis/scarring from previous pulmonary infections #13. Acute kidney injury, possibly related to diuretic therapy, and recent increase of her ARB, Lasix has been decreased, Losartan discontinued Plan: Continue current medical treatment, continue current antibiotics, still dyspneic and wheezy, continue with IV steroids, nebulized bronchodilators, bronchial lavage cultures are pending, will await final cultures, vital signs have been stable. We'll continue to follow I performed a history & physical examination of the patient and discussed their management with my nurse practitioner, Maryjo Parisi. I reviewed the nurse practitioner's note and agree with the documented findings and plan of care. Lung sounds are positive for diffuse wheezes throughout the lung carrera. The findings and the impression was discussed with the patient. I attest to the documentation by the nurse practitioner. Time with Patient: Less than 30
[2019-12-12 17:17] LABS: Glucose,Whole Blood 344 mg/dL (75-99)
[2019-12-12] MEDS: WARFARIN 2 MG TAB PO SCH (18:16)
[2019-12-12 20:13] LABS: Glucose,Whole Blood 425 mg/dL (75-99)
[2019-12-12] MEDS: INSULIN DETEMIR (LEVEMIR) 100 UNIT/ML SYR SQ SCH (21:00)
[2019-12-13] MEDS: ALPRAZolam 0.5 MG TAB PO PRN ×2 (01:26→09:32)
[2019-12-13] MEDS: IPRATROPIUM-ALBUTEROL 3 ML NEB INHALATION SCH ×6 (03:40→23:40)
[2019-12-13 06:14] LABS: Glucose,Whole Blood 303 mg/dL (75-99)
[2019-12-13] MEDS: INSULIN ASPART (NovoLOG) 100 UNIT/ML VIAL SQ SCH ×4 (06:26→21:00)
[2019-12-13] MEDS: LEVOTHYROXINE 50 MCG TAB PO SCH (06:26)
[2019-12-13] MEDS: PANTOPRAZOLE 40 MG TABLET PO SCH (06:26)
[2019-12-13] MEDS: BUDESONIDE 1 MG/2 ML NEBU INHALATION SCH ×2 (08:08→19:42)
[2019-12-13] MEDS: FORMOTEROL FUMARATE 20 MCG/2 ML NEBU INHALATION SCH ×2 (08:08→19:42)
[2019-12-13] MEDS ORDERED: FUROSEMIDE 40 MG TAB PO SCH (09:00)
[2019-12-13] MEDS: DILTIAZEM CD 180 MG CAP.ER.24H PO SCH (09:31)
[2019-12-13] MEDS: METOPROLOL TARTRATE 25 MG TAB PO SCH ×2 (09:31→21:42)
[2019-12-13] MEDS: FERROUS SULFATE 325 MG TAB PO SCH (09:31)
[2019-12-13] MEDS: FLUCONAZOLE 100 MG TAB PO SCH ×2 (09:32→21:44)
[2019-12-13] MEDS: ATORVASTATIN 10 MG TAB PO SCH (09:32)
[2019-12-13] MEDS: methylPREDNISolone SOD SUCCI 40 MG/ML 1 ML VIAL IV SCH ×2 (09:32→21:44)
[2019-12-13 09:33] LABS: Anisocytosis Slight; Basophils % (A) 0 %; Eosinophils % (A) 0 %; HCT 33.2 % (34.0-46.0); HGB 10.4 gm/dL (11.4-16.0); Hypochromasia Moderate; Lymphocytes # (A) 0.6 k/uL (1.0-4.8); Lymphocytes % (A) 4 %; MCH 27.1 pg (25.0-35.0); MCHC 31.2 g/dL (31.0-37.0); MCV 86.8 fL (80.0-100.0); Monocytes # (A) 0.7 k/uL (0-1.0); Monocytes % (A) 5 %; Neutrophils # (A) 12.5 k/uL (1.3-7.7); Neutrophils % (A) 90 %; Platelet Count 223 k/uL (150-450); RBC 3.83 m/uL (3.80-5.40); RDW 16.7 % (11.5-15.5); WBC 13.9 k/uL (3.8-10.6)
[2019-12-13 09:38] LABS: INR 2.6 (<1.2); Prothrombin Time 25.7 sec (9.0-12.0)
[2019-12-13 09:46] LABS: Calcium 8.4 mg/dL (8.4-10.2); Potassium 4.2 mmol/L (3.5-5.1)
[2019-12-13] MEDS ORDERED: SODIUM CHLORIDE 0.9% 500 ML 250 ML IV ONE (10:19)
--- NOTE | 2019-12-13 10:21 | P.PN ---
Subjective This is a pleasant 74 years old female with multiple medical problems as below. Patient was recently discharged from this hospital 11/26-12/01 for COPD with colonization with Pseudomonas aeruginosa and fluid overload. And possible cellulitis of the lower extremities. She was discharged on tapering steroids and other medication she was at home to her therapy and she was doing well upon discharge over few days ago she started getting coughing with shortness of breath and chest pain with coughing which mainly central. Although workup seems with however nothing was coming up. No complaints about her leg and cellulitis of lower extremity looks resoled. No problem regarding her urine or bowel. Vitas looks stable, blood pressure on the high side 175/87 Labs showing mild leukocytosis of 11.5 K, +10.4 upon discharge last time however she was on steroids at home. INR is 2.0. BMP and liver enzymes were unremarkable. Serial troponins are negative 3. Lipase is normal at 52 Chest x-ray: No acute process. EKG shows sinus tachycardia at [address]-T changes and QTC 433. Cardiology and pulmonary team were consulted 12/11/2019 Physician still wheezing and although she feels less dyspneic and she needs to to 3 L of oxygen via nasal cannula Vital signs labs looks stable, her INR today is 2.6, creatinine 1.08. Sugar is mildly elevated. Patient remains on Solu-Medrol and IV Levaquin. Also she is on warfarin for her A. fib and chronic CHF Pulmonary team on the case for possible bronchoscopy 12/12/2019 Patient is breathing easier today however she still have significant wheezing on examination. She is status post bronchoscopy yesterday and bronchoalveolar lymphatics there is done with cultures pending She is saturating 90s on 3 L oxygen via nasal cannula. However her labs showing mild leukocytosis today but she is on steroids. Also her creatinine went up today to 1.6, her losartan was increased to 2 days ago from home dose of 50 100 MG BY [employer]. ALSO SHE IS ON LASIX 40 MG TWICE DAILY, WE WILL ALLOW HER TO 2 ONCE DAILY FOR NOW Keep monitoring creatinine and if escape worsen and then we will consider further workup or nephrology consult. Discussed with the staff to check bladder scan. No episodes of hypotension actually patient is hypertensive 12/12/2009 Patient feels better and she's been as can actually if she can leave however on examination she still have significant wheezing although it's slightly better than yesterday. Also she saturating 100% on 2 L oxygen via nasal cannula and leukocytosis Bronchoscopy culture and sensitivity test is still pending.improvement of WBC to 13.9. Cytology is negative for neoplastic cells per report INR today is 2.6 which is stable. She is on Coumadin for A. fib. Yesterday she developed elevated creatinine. Creatinine is slightly worse from 1.63 up to 1.74. I'm going to hold Lasix today. Then to give her small bolus of 250 mL only. Check creatinine tomorrow Sugar is uncontrolled due to steroid defect.Increase ligaments from 50 at bedtime which is home dose up to 70 units at bedtime. Change Levaquin to renal dose continue with fluconazole CONSTITUTIONAL: No fever, no malaise, no fatigue. HEENT: No recent visual problems or hearing problems. Denied any sore throat. CARDIOVASCULAR: No orthopnea, PND, no palpitations, no syncope. PULMONARY: No shortness of breath, no cough, no hemoptysis. GASTROINTESTINAL: No diarrhea, no nausea, no vomiting, no abdominal pain. Normoactive bowel sounds. Active Medications Generic Name Dose Route Start Last Admin Trade Name Freq PRN Reason Stop Dose Admin Albuterol/Ipratropium 3 ml 12/10/19 12:00 12/13/19 08:08 Ipratropium-Albuterol 3 Ml Neb INHALATION 3 ml RT-Q4H JS Administration Albuterol/Ipratropium 3 ml 12/10/19 11:59 Ipratropium-Albuterol 3 Ml Neb INHALATION RT-Q2H PRN Shortness Of Breath Or Wheezing Alprazolam 0.5 mg 12/11/19 00:22 12/13/19 09:32 Alprazolam 0.5 Mg Tab PO 0.5 mg TID PRN Administration Anxiety Atorvastatin Calcium 10 mg 12/10/19 11:45 12/13/19 09:32 Atorvastatin 10 Mg Tab PO 10 mg DAILY JS Administration Budesonide 1 mg 12/10/19 20:00 12/13/19 08:08 Budesonide 1 Mg/2 Ml Nebu INHALATION 1 mg RT-BID JS Administration Diltiazem HCl 180 mg 12/10/19 11:45 12/13/19 09:31 Diltiazem Cd 180 Mg Cap.Er.24h PO 180 mg DAILY JS Administration Ferrous Sulfate 325 mg 12/11/19 09:00 12/13/19 09:31 Ferrous Sulfate 325 Mg Tab PO 325 mg DAILY JS Administration Fluconazole 100 mg 12/11/19 21:00 12/13/19 09:32 Fluconazole 100 Mg Tab PO 100 mg BID JS Administration Formoterol Fumarate 20 mcg 12/10/19 20:00 12/13/19 08:08 Formoterol Fumarate 20 Mcg/2 Ml Nebu INHALATION 20 mcg RT-BID JS Administration Hydralazine HCl 25 mg 12/11/19 20:19 Hydralazine Hcl 25 Mg Tab PO TID PRN Blood Pressure - High Levofloxacin/Dextrose 250 mg/ 50 mls @ 50 mls/hr 12/13/19 10:30 IV Solution IVPB Q24H JS Sodium Chloride 250 mls @ 999 mls/hr 12/13/19 10:19 Saline 0.9% IV 12/13/19 10:34 .Q16M ONE Insulin Aspart 0 unit 12/10/19 17:30 12/13/19 06:26 Insulin Aspart (Novolog) 100 Unit/Ml Vial SQ 8 unit ACHS [facility] Administration Protocol Insulin Detemir 70 unit 12/13/19 21:00 Insulin Detemir (Levemir) 100 Unit/Ml Syr SQ HS [facility] Insulin Detemir 15 unit 12/13/19 10:30 Insulin Detemir (Levemir) 100 Unit/Ml Syr SQ 12/14/19 10:31 DAILY@0700 [facility] Levothyroxine Sodium 50 mcg 12/11/19 06:30 12/13/19 06:26 Levothyroxine 50 Mcg Tab PO 50 mcg 0630 SJ Administration Methylprednisolone Sodium Succinate 40 mg 12/11/19 21:00 12/13/19 09:32 Methylprednisolone Sod Succi 40 Mg/Ml 1 Ml Vial IV 40 mg Q12HR JS Administration Metoprolol Tartrate 25 mg 12/10/19 11:45 12/13/19 09:31 Metoprolol Tartrate 25 Mg Tab PO 25 mg BID JS Administration Miscellaneous Information 1 each 12/10/19 12:41 Warfarin Per Pharmacy MISCELLANE DIRECTED PRN INR Pantoprazole Sodium 40 mg 12/11/19 07:30 12/13/19 06:26 Pantoprazole 40 Mg Tablet PO 40 mg [id number] JS Administration Tramadol HCl 50 mg 12/10/19 12:24 Tramadol 50 Mg Tab PO TID PRN Pain Warfarin Sodium 2 mg 12/11/19 18:00 12/12/19 18:16 Warfarin 2 Mg Tab PO 2 mg DAILY@1800 [facility] Administration Protocol Objective - Vital Signs Vital signs: Vital Signs Temp 97.5 F L 12/13/19 03:52 Pulse 68 12/13/19 08:35 Resp 18 12/13/19 03:52 BP 156/71 12/13/19 03:52 Pulse Ox 100 12/13/19 03:52 Intake & Output 12/12/19 12/13/19 12/13/19 18:59 06:59 18:59 Intake Total 458 240 Output Total 240 Balance 218 240 Weight 106.1 kg Intake: Intake, IV Titration 100 Amount Levofloxacin 500Mg-D5w 100 Pmx 500 mg In Dextrose/ Water 1 100ml.bag @ 100 mls/hr IVPB Q24H [facility] Rx#: [id number] Oral 358 240 Output: Urine 240 Other: Voiding Method Bedside Commode Bedside Commode # Voids 1 - Exam GENERAL: The patient is alert and oriented x3, not in any acute distress. Well developed, well nourished. HEENT: Pupils are round and equally reacting to light. EOMI. No scleral icterus. No conjunctival pallor. Normocephalic, atraumatic. No pharyngeal erythema. No thyromegaly. CARDIOVASCULAR: S1 and S2 present. No murmurs, rubs, or gallops. -PULMONARY: Chest is clear to auscultation, bilateral harsh wheezing ABDOMEN: Soft, nontender, nondistended, normoactive bowel sounds. No palpable organomegaly. MUSCULOSKELETAL: No joint swelling or deformity. EXTREMITIES: No cyanosis, clubbing, or pedal edema. No cellulitis NEUROLOGICAL: Gross neurological examination did not reveal any focal deficits. SKIN: No rashes. No petechiae - Labs CBC & Chem 7: 12/13/19 09:00 12/13/19 09:00 Labs: Abnormal Lab Results - Last 24 Hours (Table) 12/12/19 12/12/19 12/12/19 Range/Units 12:04 17:09 20:12 WBC (3.8-10.6) k/uL Hgb (11.4-16.0) gm/dL Hct (34.0-46.0) % RDW (11.5-15.5) % Neutrophils # (1.3-7.7) k/uL Lymphocytes # (1.0-4.8) k/uL PT (9.0-12.0) sec INR (<1.2) Sodium (137-145) mmol/L BUN (7-17) mg/dL Creatinine (0.52-1.04) mg/dL Glucose (74-99) mg/dL POC Glucose (mg/dL) 348 H 344 H 425 H (75-99) mg/dL 12/13/19 12/13/19 12/13/19 Range/Units 06:13 09:00 09:00 WBC 13.9 H (3.8-10.6) k/uL Hgb 10.4 L (11.4-16.0) gm/dL Hct 33.2 L (34.0-46.0) % RDW 16.7 H (11.5-15.5) % Neutrophils # 12.5 H (1.3-7.7) k/uL Lymphocytes # 0.6 L (1.0-4.8) k/uL PT 25.7 H (9.0-12.0) sec INR 2.6 H (<1.2) Sodium (137-145) mmol/L BUN (7-17) mg/dL Creatinine (0.52-1.04) mg/dL Glucose (74-99) mg/dL POC Glucose (mg/dL) 303 H (75-99) mg/dL 12/13/19 Range/Units 09:00 WBC (3.8-10.6) k/uL Hgb (11.4-16.0) gm/dL Hct (34.0-46.0) % RDW (11.5-15.5) % Neutrophils # (1.3-7.7) k/uL Lymphocytes # (1.0-4.8) k/uL PT (9.0-12.0) sec INR (<1.2) Sodium 134 L (137-145) mmol/L BUN 65 H (7-17) mg/dL Creatinine 1.74 H (0.52-1.04) mg/dL Glucose 268 H (74-99) mg/dL POC Glucose (mg/dL) (75-99) mg/dL Microbiology - Last 24 Hours (Table) 12/11/19 11:30 Acid Fast Bacilli Smear - Final Bronchial Washings - Right Acid Fast Bacilli Culture - Preliminary Assessment and Plan Assessment: -Acute Shortness of breath: Secondary to severe bronchitis, . Possible colonization with Pseudomonas, On 2 L nasal cannula which she is at baseline. Consult pulmonary service. Status post bronchoscopy. Follow-up culture results. Continue with Levaquin and fluconazole -Acute kidney injury, hold losartan and hold Lasix give small bullous. Monitor creatinine -CHF with diastolic dysfunction, possible right-sided heart failure: Last time h er physician increased dose of Lasix to 40 mg oral twice daily upon discharge. Consult cardiology. Lasix on hold -Cellulitis of the left lower extremity, improved -mild leukocytosis could be due to recent steroids intake, we'll keep monitoring -Chronic bronchial asthma chronic persistent asthma -Chronic hypoxic respiratory failure 2 L nasal cannula which she uses at home -Proximal A. fib therapy, INR subtherapeutic: Coumadin increased to 5 mg during hospitalization, she will decrease the dose of Coumadin to 2 mg she is on Levaquin -Type 2 diabetes mellitus: continue on Levemir at 50 units daily during course of prednisone increase her Levemir 70 units at bedtime , and then resume previou s home dose once taper is completed. -Hypertension -Hypothyroidism -Possible interstitial lung disease, chronic interstitial changes present on chest x-ray -Moderate to severe chronic pulmonary hypertension DVT prophylaxisOn Coumadin GI Prophylaxis: Pepcid PT/OT: Pending
[2019-12-13 11:59] LABS: Glucose,Whole Blood 210 mg/dL (75-99)
[2019-12-13] MEDS: LEVOFLOXACIN 250MG-D5W PMX 250 MG in DEXTROSE/WATER 1 50ML.BAG IVPB SCH (12:55)
[2019-12-13] MEDS: INSULIN DETEMIR (LEVEMIR) 100 UNIT/ML SYR SQ SCH ×2 (12:55→21:00)
--- NOTE | 2019-12-13 14:33 | P.PN ---
Subjective Progress Note Date: 12/13/19 Principal diagnosis: COPD exacerbation, acute tracheobronchitis This is a 74-year-old white female patient who follows in our pulmonary clinic for her chronic history of COPD and chronic tracheobronchitis. Patient has had frequent admissions for complications related to tracheobronchitis, and her sputum cultures have been positive for pseudomonas. Patient came into the [facility] department on 12/10/2019 with complaints of worsening shortness of breath, her chest x-ray showed no evidence of acute cardiopulmonary abnormality, but she was quite bronchospastic, short of breath, she is not able to bring up much sputum. We started the patient on Levaquin the steroids, and nebulized bronchodilators, but knowing patient's history, currently maintained the patient nothing by mouth and placed the patient on the list for bronchoscopy with BAL today. Patient tolerated procedure very well, large amount of thin yellow secretions were removed, bronchial lavage cultures were sent. On 12/12/2019 patient seen in follow-up on selective care unit. Patient is awake and alert, in no acute distress, she sits up in the recliner, still has coughing and wheezing, with exertion, slightly improved. Is on 3 L of oxygen pulse ox of 99%, hemodynamically stable, she's been afebrile, patient is status post bronchoscopy with bronchoalveolar lavage on 9 12/11/2019, bronchial lavage Gram stain showed rare PMNs, few gram-positive cocci, few gram-negative bacilli, some rare budding yeast. Vital signs have been stable, patient continues on Levaquin and yesterday we added Diflucan for evidence of candidiasis on patient's vocal cords. Today's labs patient had worsening of her renal function, her BUN is up to 55, and creatinine is 1.63. Patient continues on IV steroids, breathing treatments, antibiotics, and daily dose of oral Lasix. On 12/13/2019 patient seen in follow-up on selective care unit, she is resting comfortably in the chair, still has scattered wheezing, and dyspnea on exertion, currently in no acute distress at rest, she is on 2 L of oxygen pulse ox of 99%, she's been afebrile, she is status post bronchoscopy with bronchoalveolar lavage, her lavage cultures showing gram-negative bacilli, final cultures pending, patient is covered with Levaquin, she is on IV steroids and nebulized bronchodilators. Objective - Vital Signs Vital signs: Vital Signs Temp 98 F 12/13/19 12:00 Pulse 84 12/13/19 12:00 Resp 20 12/13/19 12:00 BP 156/92 12/13/19 12:00 Pulse Ox 99 12/13/19 12:00 Intake & Output 12/12/19 12/13/19 12/13/19 18:59 06:59 18:59 Intake Total 458 240 Output Total 240 350 Balance 218 -110 Weight 106.1 kg Intake: Intake, IV Titration 100 Amount Levofloxacin 500Mg-D5w 100 Pmx 500 mg In Dextrose/ Water 1 100ml.bag @ 100 mls/hr IVPB Q24H [facility] Rx#: [id number] Oral 358 240 Output: Urine 240 350 Other: Voiding Method Bedside Commode Bedside Commode # Voids 1 - Exam GENERAL EXAM: Alert, very pleasant, 74-year-old white female on 3 L of oxygen and the pulse ox 99% comfortable in no apparent distress. HEAD: Normocephalic/atraumatic. EYES: Normal reaction of pupils, equal size. Conjunctiva pink, sclera white. NOSE: Clear with pink turbinates. THROAT: No erythema or exudates. NECK: No masses, no JVD, no thyroid enlargement, no adenopathy. CHEST: No chest wall deformity. Symmetrical expansion. LUNGS: Equal air entry with diffuse wheezes and rhonchi CVS: Regular rate and rhythm, normal S1 and S2, no gallops, no murmurs, no rubs ABDOMEN: Soft, nontender. No hepatosplenomegaly, normal bowel sounds, no guarding or rigidity. EXTREMITIES: No clubbing, no edema, no cyanosis, 2+ pulses and upper and lower extremities. MUSCULOSKELETAL: Muscle strength and tone normal. SPINE: No scoliosis or deformity SKIN: No rashes CENTRAL NERVOUS SYSTEM: Alert and oriented -3. No focal deficits, tone is normal in all 4 extremities. PSYCHIATRIC: Alert and oriented -3. Appropriate affect. Intact judgment and insight. - Labs CBC & Chem 7: 12/13/19 09:00 12/13/19 09:00 Labs: Abnormal Lab Results - Last 24 Hours (Table) 12/11/19 12/12/19 12/12/19 Range/Units 11:30 17:09 20:12 WBC (3.8-10.6) k/uL Hgb (11.4-16.0) gm/dL Hct (34.0-46.0) % RDW (11.5-15.5) % Neutrophils # (1.3-7.7) k/uL Lymphocytes # (1.0-4.8) k/uL PT (9.0-12.0) sec INR (<1.2) Sodium (137-145) mmol/L BUN (7-17) mg/dL Creatinine (0.52-1.04) mg/dL Glucose (74-99) mg/dL POC Glucose (mg/dL) 344 H 425 H (75-99) mg/dL Viral Test See Below H 12/13/19 12/13/19 12/13/19 Range/Units 06:13 09:00 09:00 WBC 13.9 H (3.8-10.6) k/uL Hgb 10.4 L (11.4-16.0) gm/dL Hct 33.2 L (34.0-46.0) % RDW 16.7 H (11.5-15.5) % Neutrophils # 12.5 H (1.3-7.7) k/uL Lymphocytes # 0.6 L (1.0-4.8) k/uL PT 25.7 H (9.0-12.0) sec INR 2.6 H (<1.2) Sodium (137-145) mmol/L BUN (7-17) mg/dL Creatinine (0.52-1.04) mg/dL Glucose (74-99) mg/dL POC Glucose (mg/dL) 303 H (75-99) mg/dL Viral Test 12/13/19 12/13/19 Range/Units 09:00 11:54 WBC (3.8-10.6) k/uL Hgb (11.4-16.0) gm/dL Hct (34.0-46.0) % RDW (11.5-15.5) % Neutrophils # (1.3-7.7) k/uL Lymphocytes # (1.0-4.8) k/uL PT (9.0-12.0) sec INR (<1.2) Sodium 134 L (137-145) mmol/L BUN 65 H (7-17) mg/dL Creatinine 1.74 H (0.52-1.04) mg/dL Glucose 268 H (74-99) mg/dL POC Glucose (mg/dL) 210 H (75-99) mg/dL Viral Test Microbiology - Last 24 Hours (Table) 12/11/19 11:30 Gram Stain - Preliminary Bronchial Washings - Right Bronchial Washings Culture - Preliminary Gram Neg Bacilli 12/11/19 11:30 Acid Fast Bacilli Smear - Final Bronchial Washings - Right Acid Fast Bacilli Culture - Preliminary Assessment and Plan Plan: Assessment: #1. Exacerbation of COPD complicated by tracheobronchitis with the patient with prior history of colonization with Pseudomonas, status post bronchoscopy with bronchoalveolar lavage on 12/12/2019 #2. History of paroxysmal atrial fibrillation #3. History of diabetes mellitus type 2 #4. GERD/reflux #5. Patient started hearing #6. Hypertension #7. Degenerative joint disease #8. History of pneumonia #9. Hypothyroidism #10. Chronic hypoxic respiratory failure related to COPD #11. Chronic kidney disease stage II #12. Chronic interstitial changes present chest x-ray likely related to underlying pulmonary fibrosis/scarring from previous pulmonary infections #13. Acute kidney injury, possibly related to diuretic therapy, and recent increase of her ARB, Lasix has been decreased, Losartan discontinued Plan: Will await final results of the bronchial lavage cultures, patient is covered with Levaquin, continue IV steroids nebulized bronchodilators. Need another day of inpatient treatment. I performed a history & physical examination of the patient and discussed their management with my nurse practitioner, Maryjo Parisi. I reviewed the nurse practitioner's note and agree with the documented findings and plan of care. Lung sounds are positive for diffuse wheezes throughout the lung carrera. The findings and the impression was discussed with the patient. I attest to the documentation by the nurse practitioner. Time with Patient: Less than 30
[2019-12-13 16:57] LABS: Glucose,Whole Blood 252 mg/dL (75-99)
[2019-12-13] MEDS: WARFARIN 2 MG TAB PO SCH (17:26)
[2019-12-13 20:31] LABS: Glucose,Whole Blood 246 mg/dL (75-99)
[2019-12-14] MEDS: IPRATROPIUM-ALBUTEROL 3 ML NEB INHALATION SCH ×6 (03:49→23:40)
[2019-12-14 07:17] LABS: Glucose,Whole Blood 214 mg/dL (75-99)
[2019-12-14] MEDS: INSULIN DETEMIR (LEVEMIR) 100 UNIT/ML SYR SQ SCH ×2 (07:59→22:30)
[2019-12-14] MEDS: DILTIAZEM CD 180 MG CAP.ER.24H PO SCH (08:00)
[2019-12-14] MEDS: LEVOTHYROXINE 50 MCG TAB PO SCH (08:00)
[2019-12-14] MEDS: INSULIN ASPART (NovoLOG) 100 UNIT/ML VIAL SQ SCH ×4 (08:00→22:30)
[2019-12-14] MEDS: ATORVASTATIN 10 MG TAB PO SCH (08:00)
[2019-12-14] MEDS: PANTOPRAZOLE 40 MG TABLET PO SCH (08:00)
[2019-12-14] MEDS: FERROUS SULFATE 325 MG TAB PO SCH (08:01)
[2019-12-14] MEDS: methylPREDNISolone SOD SUCCI 40 MG/ML 1 ML VIAL IV SCH ×2 (08:01→22:29)
[2019-12-14] MEDS: METOPROLOL TARTRATE 25 MG TAB PO SCH ×2 (08:01→22:29)
[2019-12-14] MEDS: FLUCONAZOLE 100 MG TAB PO SCH ×2 (08:01→22:30)
[2019-12-14] MEDS: BUDESONIDE 1 MG/2 ML NEBU INHALATION SCH ×2 (08:03→19:11)
[2019-12-14] MEDS: FORMOTEROL FUMARATE 20 MCG/2 ML NEBU INHALATION SCH ×2 (08:03→19:12)
[2019-12-14 09:35] LABS: INR 2.7 (<1.2); Prothrombin Time 26.3 sec (9.0-12.0)
[2019-12-14 12:07] LABS: Glucose,Whole Blood 93 mg/dL (75-99)
[2019-12-14] MEDS: LEVOFLOXACIN 250MG-D5W PMX 250 MG in DEXTROSE/WATER 1 50ML.BAG IVPB SCH (12:21)
--- NOTE | 2019-12-14 13:15 | P.PN ---
Subjective Progress Note Date: 12/14/19 Principal diagnosis: COPD exacerbation, acute tracheobronchitis This is a 74-year-old white female patient who follows in our pulmonary clinic for her chronic history of COPD and chronic tracheobronchitis. Patient has had frequent admissions for complications related to tracheobronchitis, and her sputum cultures have been positive for pseudomonas. Patient came into the [facility] department on 12/10/2019 with complaints of worsening shortness of breath, her chest x-ray showed no evidence of acute cardiopulmonary abnormality, but she was quite bronchospastic, short of breath, she is not able to bring up much sputum. We started the patient on Levaquin the steroids, and nebulized bronchodilators, but knowing patient's history, currently maintained the patient nothing by mouth and placed the patient on the list for bronchoscopy with BAL today. Patient tolerated procedure very well, large amount of thin yellow secretions were removed, bronchial lavage cultures were sent. On 12/12/2019 patient seen in follow-up on selective care unit. Patient is awake and alert, in no acute distress, she sits up in the recliner, still has coughing and wheezing, with exertion, slightly improved. Is on 3 L of oxygen pulse ox of 99%, hemodynamically stable, she's been afebrile, patient is status post bronchoscopy with bronchoalveolar lavage on 9 12/11/2019, bronchial lavage Gram stain showed rare PMNs, few gram-positive cocci, few gram-negative bacilli, some rare budding yeast. Vital signs have been stable, patient continues on Levaquin and yesterday we added Diflucan for evidence of candidiasis on patient's vocal cords. Today's labs patient had worsening of her renal function, her BUN is up to 55, and creatinine is 1.63. Patient continues on IV steroids, breathing treatments, antibiotics, and daily dose of oral Lasix. On 12/13/2019 patient seen in follow-up on selective care unit, she is resting comfortably in the chair, still has scattered wheezing, and dyspnea on exertion, currently in no acute distress at rest, she is on 2 L of oxygen pulse ox of 99%, she's been afebrile, she is status post bronchoscopy with bronchoalveolar lavage, her lavage cultures showing gram-negative bacilli, final cultures pending, patient is covered with Levaquin, she is on IV steroids and nebulized bronchodilators. On 12/14/2019 patient seen in follow-up. Patient is still congested today, she is coughing, but not bringing up much phlegm, still has some scattered wheezing, complains of dyspnea with exertion, she's interested liters of oxygen pulse ox 99%, she is afebrile, hemodynamically patient is stable, sputum culture showed gram-negative bacilli, and Merissa albicans. Patient is covered with Diflucan, and Levaquin for antibiotic coverage, she is on IV steroids and nebulized bronchodilators., She is improving but slowly Objective - Vital Signs Vital signs: Vital Signs Temp 98.1 F 12/14/19 11:26 Pulse 77 12/14/19 11:49 Resp 16 12/14/19 11:26 BP 160/81 12/14/19 11:26 Pulse Ox 99 12/14/19 11:26 Intake & Output 12/13/19 12/14/19 12/14/19 18:59 06:59 18:59 Intake Total 1220 240 Output Total 418 145 4769 Balance 870 -450 -760 Weight 107.3 kg Intake: Oral 1220 240 Output: Urine 067 008 0255 Other: Voiding Method Bedside Commode - Exam GENERAL EXAM: Alert, very pleasant, 74-year-old white female on 3 L of oxygen and the pulse ox 99% comfortable in no apparent distress. HEAD: Normocephalic/atraumatic. EYES: Normal reaction of pupils, equal size. Conjunctiva pink, sclera white. NOSE: Clear with pink turbinates. THROAT: No erythema or exudates. NECK: No masses, no JVD, no thyroid enlargement, no adenopathy. CHEST: No chest wall deformity. Symmetrical expansion. LUNGS: Equal air entry with diffuse wheezes and rhonchi CVS: Regular rate and rhythm, normal S1 and S2, no gallops, no murmurs, no rubs ABDOMEN: Soft, nontender. No hepatosplenomegaly, normal bowel sounds, no gu arding or rigidity. EXTREMITIES: No clubbing, no edema, no cyanosis, 2+ pulses and upper and lower e xtremities. MUSCULOSKELETAL: Muscle strength and tone normal. SPINE: No scoliosis or deformity SKIN: No rashes CENTRAL NERVOUS SYSTEM: Alert and oriented -3. No focal deficits, tone is normal in all 4 extremities. PSYCHIATRIC: Alert and oriented -3. Appropriate affect. Intact judgment and insight. - Labs CBC & Chem 7: 12/13/19 09:00 12/13/19 09:00 Labs: Abnormal Lab Results - Last 24 Hours (Table) 12/11/19 12/13/19 12/13/19 Range/Units 11:30 16:53 20:30 PT (9.0-12.0) sec INR (<1.2) POC Glucose (mg/dL) 252 H 246 H (75-99) mg/dL Viral Test See Below H 12/14/19 12/14/19 Range/Units 07:14 08:52 PT 26.3 H (9.0-12.0) sec INR 2.7 H (<1.2) POC Glucose (mg/dL) 214 H (75-99) mg/dL Viral Test Microbiology - Last 24 Hours (Table) 12/11/19 11:30 Fungal Culture - Preliminary Bronchial Washings - Right Merissa albicans 12/11/19 11:30 Gram Stain - Preliminary Bronchial Washings - Right Bronchial Washings Culture - Preliminary Gram Neg Bacilli Assessment and Plan Plan: Assessment: #1. Exacerbation of COPD complicated by tracheobronchitis with the patient with prior history of colonization with Pseudomonas, status post bronchoscopy with bronchoalveolar lavage on 12/12/2019, bronchitis/cultures showed Merissa albicans, and gram-negative bacilli, cultures pending #2. History of paroxysmal atrial fibrillation #3. History of diabetes mellitus type 2 #4. GERD/reflux #5. Patient started hearing #6. Hypertension #7. Degenerative joint disease #8. History of pneumonia #9. Hypothyroidism #10. Chronic hypoxic respiratory failure related to COPD #11. Chronic kidney disease stage II #12. Chronic interstitial changes present chest x-ray likely related to underlying pulmonary fibrosis/scarring from previous pulmonary infections #13. Acute kidney injury, possibly related to diuretic therapy, and recent increase of her ARB, Lasix has been decreased, Losartan discontinued Plan: Patient is improving, but still dyspneic, bronchospastic and congested, continue Levaquin and Diflucan, final culture on the bronchial wash that showed gram- negative bacilli is pending. Bronchial cytology was negative. She's had no acute events overnight, would recommend another 24 hours of inpatient treatment. We will continue to follow I performed a history & physical examination of the patient and discussed their management with my nurse practitioner, Maryjo Isak. I reviewed the nurse practitioner's note and agree with the documented findings and plan of care. Lung sounds are positive for diffuse wheezes throughout the lung carrera. The findings and the impression was discussed with the patient. I attest to the documentation by the nurse practitioner. Time with Patient: Less than 30
[2019-12-14] MEDS: ALPRAZolam 0.5 MG TAB PO PRN ×2 (14:02→22:30)
[2019-12-14] MEDS ORDERED: guaiFENesin 600 MG TABLET.ER PO PRN (17:11)
[2019-12-14] MEDS ORDERED: NON FORMULARY DRUG (Alendronate Sodium [Fosamax] 70 MG Tablet) PO SCH (17:15)
[2019-12-14 17:19] LABS: Glucose,Whole Blood 153 mg/dL (75-99)
[2019-12-14] MEDS: WARFARIN 2 MG TAB PO SCH (17:43)
--- NOTE | 2019-12-14 17:54 | PN ---
PROGRESS NOTE DATE OF SERVICE: 12/14/2019 This 74-year-old woman who was admitted with significant shortness of breath has COPD, acute exacerbation, as well as CHF, acute exacerbation. The patient has bilateral leg swelling also. The patient is still extremely short of breath. The patient also had possible colonization with pseudomonas as well. The fungal cultures are also positive. Patient is being closely monitored. The most recent chest x-ray, which was personally reviewed by me, showed increased bilateral markings. Patient is being closely monitored. Past medical history reviewed. REVIEW OF SYSTEMS: CARDIOVASCULAR SYSTEM: No angina, palpitations. RESPIRATORY SYSTEM: As mentioned earlier. GI: As mentioned earlier. : No dysuria or retention. NERVOUS SYSTEM: No numbness, weakness. CURRENT MEDICATIONS: Reviewed. They include: 1. DuoNeb. 2. Xanax. 3. Lipitor. 4. Pulmicort. 5. Cardizem. 6. Diflucan. 7. Perforomist. 8. Apresoline. 9. Levemir. 10.Levaquin. 11.Synthroid. 12.Solu-Medrol. 13.Lopressor. 14.Protonix. 15.Ultram. 16.Coumadin. PHYSICAL EXAMINATION: Patient is alert, oriented x3. Pulse 73, blood pressure 137/73, respiration 20, temperature 98 degrees, pulse ox 99% on 2 L. HEENT: Conjunctivae normal. NECK: No jugular venous distention. CARDIOVASCULAR SYSTEM: S1, S2 muffled. RESPIRATORY SYSTEM: Breath sounds diminished at the bases. Bilateral scattered rhonchi and crackles. ABDOMEN: Soft, non-tender. LEGS: No edema. No swelling. NERVOUS SYSTEM: No focal deficit. LABS: Accu-Cheks 214, INR 2.7. ASSESSMENT: 1. Shortness of breath, multifactorial; bronchial asthma, chronic obstructive pulmonary disease, acute exacerbation, as well as congestive heart failure, acute exacerbation, with acute on chronic diastolic dysfunction. 2. Acute kidney injury. 3. Cellulitis of the left lower extremity. 4. Mild leukocytosis. 5. Chronic bronchial asthma. 6. Chronic hypoxic respiratory failure. 7. Paroxysmal atrial fibrillation. 8. Diabetes mellitus, type 2. 9. Hypertension. 10.Hyperlipidemia. 11.Possible interstitial lung disease. 12.Moderate history of pulmonary hypertension. RECOMMENDATIONS AND DISCUSSION: I recommend to continue current medications, continue symptomatic treatment. Continue with intensive bronchodilator treatment. Continue steroids. Continue the antibiotics. Repeat labs. Closely follow with Pulmonary. DVT prophylaxis. Proton pump inhibitors. Guarded prognosis because of multiple complex medical issues. Further recommendations to follow. We will monitor the PT/INR also. MMRAINAL / JOSEN: [id number] /
[2019-12-14 20:34] LABS: Glucose,Whole Blood 231 mg/dL (75-99)
[2019-12-15] MEDS: IPRATROPIUM-ALBUTEROL 3 ML NEB INHALATION SCH ×4 (05:20→15:03)
[2019-12-15] MEDS: LEVOTHYROXINE 50 MCG TAB PO SCH (07:12)
[2019-12-15] MEDS: PANTOPRAZOLE 40 MG TABLET PO SCH (07:12)
[2019-12-15 07:13] LABS: Glucose,Whole Blood 140 mg/dL (75-99)
[2019-12-15] MEDS: INSULIN ASPART (NovoLOG) 100 UNIT/ML VIAL SQ SCH ×2 (07:13→12:19)
[2019-12-15 08:16] VITALS: RESP 18
[2019-12-15] MEDS: DILTIAZEM CD 180 MG CAP.ER.24H PO SCH (08:17)
[2019-12-15] MEDS: methylPREDNISolone SOD SUCCI 40 MG/ML 1 ML VIAL IV SCH (08:17)
[2019-12-15] MEDS: ATORVASTATIN 10 MG TAB PO SCH (08:18)
[2019-12-15] MEDS: FLUCONAZOLE 100 MG TAB PO SCH (08:18)
[2019-12-15] MEDS: METOPROLOL TARTRATE 25 MG TAB PO SCH (08:18)
[2019-12-15] MEDS: FERROUS SULFATE 325 MG TAB PO SCH (08:18)
[2019-12-15 08:22] LABS: Anisocytosis Slight; Basophils % (A) 0 %; Eosinophils # (A) 0.1 k/uL (0-0.7); Eosinophils % (A) 1 %; HCT 33.4 % (34.0-46.0); HGB 10.3 gm/dL (11.4-16.0); Hypochromasia Moderate; Lymphocytes # (A) 0.4 k/uL (1.0-4.8); Lymphocytes % (A) 4 %; MCH 26.7 pg (25.0-35.0); MCHC 30.8 g/dL (31.0-37.0); MCV 86.9 fL (80.0-100.0); Mean Platelet Volume 7.5; Monocytes # (A) 0.4 k/uL (0-1.0); Monocytes % (A) 4 %; Neutrophils # (A) 9.2 k/uL (1.3-7.7); Neutrophils % (A) 92 %; Platelet Count 186 k/uL (150-450); RBC 3.85 m/uL (3.80-5.40); RDW 16.7 % (11.5-15.5); WBC 10.1 k/uL (3.8-10.6)
[2019-12-15] MEDS: BUDESONIDE 1 MG/2 ML NEBU INHALATION SCH (08:24)
[2019-12-15] MEDS: FORMOTEROL FUMARATE 20 MCG/2 ML NEBU INHALATION SCH (08:24)
[2019-12-15 08:43] LABS: INR 2.6 (<1.2); Potassium 4.3 mmol/L (3.5-5.1)
[2019-12-15 08:44] LABS: Calcium 8.3 mg/dL (8.4-10.2)
[2019-12-15] MEDS ORDERED: MULTIVITAMINS, THERA 1 EACH TAB PO SCH (09:00)
[2019-12-15] MEDS ORDERED: CITALOPRAM HYDROBROMIDE 20 MG TAB PO SCH (09:00)
[2019-12-15 11:22] VITALS: BP 189/81; TEMP 97.9
[2019-12-15] MEDS ORDERED: LEVOFLOXACIN 250 MG TAB PO SCH (12:00)
[2019-12-15 12:08] LABS: Glucose,Whole Blood 156 mg/dL (75-99)
--- NOTE | 2019-12-15 13:24 | P.PN ---
Subjective Progress Note Date: 12/15/19 Principal diagnosis: COPD exacerbation, complicated by pseudomonas aeruginosa This is a 74-year-old white female patient who follows in our pulmonary clinic for her chronic history of COPD and chronic tracheobronchitis. Patient has had frequent admissions for complications related to tracheobronchitis, and her sputum cultures have been positive for pseudomonas. Patient came into the emergency department on 12/10/2019 with complaints of worsening shortness of breath, her chest x-ray showed no evidence of acute cardiopulmonary abnormality, but she was quite bronchospastic, short of breath, she is not able to bring up much sputum. We started the patient on Levaquin the steroids, and nebulized bronchodilators, but knowing patient's history, currently maintained the patient nothing by mouth and placed the patient on the list for bronchoscopy with BAL today. Patient tolerated procedure very well, large amount of thin yellow secretions were removed, bronchial lavage cultures were sent. On 12/12/2019 patient seen in follow-up on selective care unit. Patient is aw baylee and alert, in no acute distress, she sits up in the recliner, still has coughing and wheezing, with exertion, slightly improved. Is on 3 L of oxygen pulse ox of 99%, hemodynamically stable, she's been afebrile, patient is status post bronchoscopy with bronchoalveolar lavage on 9 12/11/2019, bronchial lavage Gram stain showed rare PMNs, few gram-positive cocci, few gram-negative bacilli, some rare budding yeast. Vital signs have been stable, patient continues on Levaquin and yesterday we added Diflucan for evidence of candidiasis on patient's vocal cords. Today's labs patient had worsening of her renal function, her BUN is up to 55, and creatinine is 1.63. Patient continues on IV steroids, breathing treatments, antibiotics, and daily dose of oral Lasix. On 12/13/2019 patient seen in follow-up on selective care unit, she is resting comfortably in the chair, still has scattered wheezing, and dyspnea on exertion, currently in no acute distress at rest, she is on 2 L of oxygen pulse ox of 99%, she's been afebrile, she is status post bronchoscopy with bronchoalveolar lavage, her lavage cultures showing gram-negative bacilli, final cultures pending, patient is covered with Levaquin, she is on IV steroids and nebulized bronchodilators. On 12/14/2019 patient seen in follow-up. Patient is still congested today, she is coughing, but not bringing up much phlegm, still has some scattered wheezing, complains of dyspnea with exertion, she's interested liters of oxygen pulse ox 99%, she is afebrile, hemodynamically patient is stable, sputum culture showed gram-negative bacilli, and Merissa albicans. Patient is covered with Diflucan, and Levaquin for antibiotic coverage, she is on IV steroids and nebulized bronchodilators., She is improving but slowly The patient is seen today 12/15/2019 in follow-up on the regular medical floor. She is currently sitting up in a chair at the bedside. Awake and alert in no acute distress. Stating not quite back to her baseline. Still some cough and congestion. Bronchial wash cultures positive for pseudomonas aeruginosa. Currently on Levaquin. Remains on IV Solu-Medrol, bronchodilators. Maintaining O2 saturation up to 99% on 2 L/m per nasal cannula. She's been afebrile. White count 10.1. Hemoglobin 10.3. INR 2.6. Sodium 135. Potassium 4.3. Creatinine 1.60. Objective - Vital Signs Vital signs: Vital Signs Temp 97.9 F 12/15/19 11:20 Pulse 78 12/15/19 11:25 Resp 18 12/15/19 11:34 BP 189/81 12/15/19 11:20 Pulse Ox 99 12/15/19 11:20 Intake & Output 12/14/19 12/15/19 12/15/19 18:59 06:59 18:59 Intake Total 480 240 Output Total 1000 400 Balance -520 -400 240 Weight 107.6 kg Intake: Oral 480 240 Output: Urine 1000 400 Other: Voiding Method Bedside Commode # Voids 1 1 # Bowel Movements 1 - Exam GENERAL EXAM: Alert, very pleasant, 74-year-old female patient, up in the chair, on 2 L of oxygen and the pulse ox 99% comfortable in no apparent distress. HEAD: Normocephalic/atraumatic. EYES: Normal reaction of pupils, equal size. Conjunctiva pink, sclera white. NOSE: Clear with pink turbinates. THROAT: No erythema or exudates. NECK: No masses, no JVD, no thyroid enlargement, no adenopathy. CHEST: No chest wall deformity. Symmetrical expansion. LUNGS: Equal air entry with diffuse wheezes and rhonchi CVS: Regular rate and rhythm, normal S1 and S2, no gallops, no murmurs, no rubs ABDOMEN: Soft, nontender. No hepatosplenomegaly, normal bowel sounds, no guarding or rigidity. EXTREMITIES: No clubbing, no edema, no cyanosis, 2+ pulses and upper and lower extremities. MUSCULOSKELETAL: Muscle strength and tone normal. SPINE: No scoliosis or deformity SKIN: No rashes CENTRAL NERVOUS SYSTEM: No focal deficits, tone is normal in all 4 extremities. PSYCHIATRIC: Alert and oriented -3. Appropriate affect. Intact judgment and insight. - Labs CBC & Chem 7: 12/15/19 07:43 12/15/19 07:43 Labs: Abnormal Lab Results - Last 24 Hours (Table) 12/14/19 12/14/19 12/15/19 Range/Units 17:16 20:32 07:11 Hgb (11.4-16.0) gm/dL Hct (34.0-46.0) % MCHC (31.0-37.0) g/dL RDW (11.5-15.5) % Neutrophils # (1.3-7.7) k/uL Lymphocytes # (1.0-4.8) k/uL PT (9.0-12.0) sec INR (<1.2) Sodium (137-145) mmol/L BUN (7-17) mg/dL Creatinine (0.52-1.04) mg/dL Glucose (74-99) mg/dL POC Glucose (mg/dL) 153 H 231 H 140 H (75-99) mg/dL Calcium (8.4-10.2) mg/dL 12/15/19 12/15/19 12/15/19 Range/Units 07:43 07:43 07:43 Hgb 10.3 L (11.4-16.0) gm/dL Hct 33.4 L (34.0-46.0) % MCHC 30.8 L (31.0-37.0) g/dL RDW 16.7 H (11.5-15.5) % Neutrophils # 9.2 H (1.3-7.7) k/uL Lymphocytes # 0.4 L (1.0-4.8) k/uL PT 25.0 H (9.0-12.0) sec INR 2.6 H (<1.2) Sodium 135 L (137-145) mmol/L BUN 75 H (7-17) mg/dL Creatinine 1.60 H (0.52-1.04) mg/dL Glucose 131 H (74-99) mg/dL POC Glucose (mg/dL) (75-99) mg/dL Calcium 8.3 L (8.4-10.2) mg/dL 12/15/19 Range/Units 12:03 Hgb (11.4-16.0) gm/dL Hct (34.0-46.0) % MCHC (31.0-37.0) g/dL RDW (11.5-15.5) % Neutrophils # (1.3-7.7) k/uL Lymphocytes # (1.0-4.8) k/uL PT (9.0-12.0) sec INR (<1.2) Sodium (137-145) mmol/L BUN (7-17) mg/dL Creatinine (0.52-1.04) mg/dL Glucose (74-99) mg/dL POC Glucose (mg/dL) 156 H (75-99) mg/dL Calcium (8.4-10.2) mg/dL Microbiology - Last 24 Hours (Table) 12/11/19 11:30 Gram Stain - Final Bronchial Washings - Right Bronchial Washings Culture - Final Pseudomonas aeruginosa 12/11/19 11:30 Fungal Culture - Preliminary Bronchial Washings - Right Merissa albicans Assessment and Plan Assessment: 1 Acute exacerbation of COPD complicated by tracheobronchitis in a patient with prior history of colonization with Pseudomonas, status post bronchoscopy with bronchoalveolar lavage on 12/12/2019, bronchitis/cultures showed Merissa albicans, and pseudomonas aeruginosa. Currently on Levaquin. 2 History of paroxysmal atrial fibrillation 3 History of diabetes mellitus type 2 4 GERD/reflux 5 Patient started hearing 6 Hypertension 7 Degenerative joint disease 8 History of pneumonia 9 Hypothyroidism 10 Chronic hypoxic respiratory failure related to COPD 11 Chronic kidney disease stage II 12 Chronic interstitial changes present chest x-ray likely related to underlying pulmonary fibrosis/scarring from previous pulmonary infections 13 Acute kidney injury, possibly related to diuretic therapy, and recent increase of her ARB, Lasix has been decreased, Losartan discontinued Plan: The patient was seen and evaluated by Dr. Butler Bronchial wash cultures positive for Merissa and pseudomonas aeruginosa Continue Diflucan Currently on oral Levaquin, may need IV meropenem, if so PICC line placement We will continue to follow and make further recommendations based on her clinical status I, the cosigning physician, performed a history & physical examination of the patient. Lungs sounds with bilateral end expiratory wheeze, few scattered rhonchi. Maintaining good O2 saturations in the 90s on 2 L/m per nasal cannula. I discussed the assessment and plan of care with my nurse practitioner, Su Arias. I attest to the above note as dictated by her.
[2019-12-15] MEDS ORDERED: CEFEPIME 1 GM in SODIUM CHLORIDE 0.9% 50 ML IVPB SCH (13:30)
[2019-12-15 15:15] VITALS: PULSE 80
--- NOTE | 2019-12-15 19:12 | DS ---
DISCHARGE SUMMARY DATE OF SERVICE: 12/15/2019 FINAL DIAGNOSES: 1. Shortness of breath, possibly multifactorial, bronchial asthma, acute exacerbation, chronic obstructive pulmonary disease acute exacerbation, congestive heart failure acute exacerbation with acute on chronic diastolic dysfunction. 2. Acute kidney injury. 3. Cellulitis of the left lower extremity. 4. Mild leukocytosis. 5. Chronic intermittent bronchial asthma history. 6. History of chronic hypoxic respiratory failure on home O2. 7. Paroxysmal atrial fibrillation. 8. Diabetes mellitus. 9. Hypertension. 10.Hyperlipidemia. 11.Possible interstitial lung disease. 12.Moderate pulmonary hypertension. DISCHARGE DISPOSITION: The patient will be discharged in stable condition with guarded prognosis. Total time taken: [address] Butler cleared the patient for discharge. HISTORY OF PRESENT ILLNESS: This 74-year-old woman with a past medical history of multiple medical problems being followed by Dr. Medrano in the outpatient setting, was admitted with shortness of breath, multifactorial including bronchial asthma and congestive heart failure acute exacerbation. Treated symptomatic with bronchodilators and steroids, antibiotics. Patient improved significantly. On exam, vitals are stable. Cardiovascular: S1, S2. Abdomen soft. Nervous system: No focal deficits. Legs minimal edema present. DISCHARGE ADVICE AND MEDICATIONS: 1. Discharge diet is cardiac diet. No added salt. 2. Activity limited until follow up. 3. Followup with Cardiology as recommended. 4. Follow up with Dr. Butler as recommended. 5. Follow up with Dr. Medrano in 2-3 days. DISCHARGE MEDICATIONS: 1. Zafirlukast 20 mg p.o. b.i.d. 2. Celexa 40 mg daily. 3. Claritin 10 mg daily. 4. Coumadin 5 mg p.o. q.h.s. 5. Cozaar 50 mg p.o. daily. 6. Cardizem 180 mg p.o. daily. 7. Fosamax 70 mg p.o. Tuesday. 8. Mevacor 40 mg p.o. daily. 9. Mucinex 600 mg p.o. b.i.d. 10.Multivitamins 1 p.o. daily. 11.Humulin R per protocol. 12.Prednisone taper 40 mg daily for 3 days, 30 mg daily for 3 days, 20 for 3 days and then 10 mg daily. 13.Levothyroxine 50 mcg. 14.Ultram p.r.n. 15.Ventolin p.r.n. 16.Xanax 0.5 p.o. t.i.d. 17.Diflucan 100 mg daily for 5 days. 18.Iron sulfate 1 daily. 19.Klor-Con 20 mEq p.o. daily. 20.Lantus 70 units subcu daily slightly increased temporarily because of steroids. 21.Lasix 40 mg p.o. b.i.d. 22.Levaquin 500 mg daily for 5 days. 23.Lopressor 25 mg p.o. b.i.d. 24.Protonix 40 mg p.o. b.i.d. 25.Symbicort 160/4.5 two puffs b.i.d. Follow up with Pulmonary as recommended. MMODL / IJN: [id number] /
== END 2019-12-15 16:22 | disposition home or self-care (01) | DRG 291 ==
LOC: EC 04:04 → 3SCARD 07:04
PROVIDERS: ADMIT Hospitalist; ATTEND Hospitalist
PROC: 0BJ08ZZ Inspection of Tracheobronchial Tree, Via Natural or Artificial Opening Endoscopic (ICD-10-PCS; principal; 2019-12-11 11:50)
PROC: 0B9D8ZZ Drainage of Right Middle Lung Lobe, Via Natural or Artificial Opening Endoscopic (ICD-10-PCS; principal; 2019-12-11 11:50)
DX: I13.0 Hypertensive heart and chronic kidney disease with heart failure and stage 1 through stage 4 chronic kidney disease, or unspecified chronic kidney disease (principal); I50.33 Acute on chronic diastolic (congestive) heart failure; B37.1 Pulmonary candidiasis; J44.0 Chronic obstructive pulmonary disease with (acute) lower respiratory infection; J44.1 Chronic obstructive pulmonary disease with (acute) exacerbation; J45.21 Mild intermittent asthma with (acute) exacerbation; J96.11 Chronic respiratory failure with hypoxia; L03.116 Cellulitis of left lower limb; N17.9 Acute kidney failure, unspecified; E66.9 Obesity, unspecified; E78.5 Hyperlipidemia, unspecified; F41.0 Panic disorder [episodic paroxysmal anxiety]; H91.90 Unspecified hearing loss, unspecified ear; I07.1 Rheumatic tricuspid insufficiency; I27.20 Pulmonary hypertension, unspecified; I48.0 Paroxysmal atrial fibrillation; J20.9 Acute bronchitis, unspecified; J84.10 Pulmonary fibrosis, unspecified; M19.90 Unspecified osteoarthritis, unspecified site; T50.2X5A Adverse effect of carbonic-anhydrase inhibitors, benzothiadiazides and other diuretics, initial encounter; B96.5 Pseudomonas (aeruginosa) (mallei) (pseudomallei) as the cause of diseases classified elsewhere; N18.2 Chronic kidney disease, stage 2 (mild); K21.9 Gastro-esophageal reflux disease without esophagitis; Z68.38 Body mass index [BMI] 38.0-38.9, adult; E03.9 Hypothyroidism, unspecified; E11.22 Type 2 diabetes mellitus with diabetic chronic kidney disease; Z79.01 Long term (current) use of anticoagulants; Z79.4 Long term (current) use of insulin; Z79.51 Long term (current) use of inhaled steroids; Z79.83 Long term (current) use of bisphosphonates; Z79.890 Hormone replacement therapy; Z79.899 Other long term (current) drug therapy; Z87.01 Personal history of pneumonia (recurrent); Z90.710 Acquired absence of both cervix and uterus; Z98.42 Cataract extraction status, left eye; I87.8 Other specified disorders of veins; Z88.0 Allergy status to penicillin; Z88.2 Allergy status to sulfonamides; Z91.041 Radiographic dye allergy status; Z91.040 Latex allergy status; Z99.81 Dependence on supplemental oxygen
CPT/HCPCS: 31624; 36415; 71046; 80048; 80053; 80061; 82150; 83690; 83735; 83880; 84484; 85025; 85610; 85730; 87070; 87077; 87102; 87116; 87186; 87205; 87206; 87252; 87496; 87498; 87502; 87529; 87634; 87798; 88108; 88305; 93005; 94640; 94667; 94760; 99285

== ENCOUNTER 2020-01-02 12:42 | Inpatient (IN) | payer MEDICARE ==
[2020-01-02] MEDS ORDERED: methylPREDNISolone SOD SUCCI 125 MG/2 ML VIAL IV STA (13:26)
[2020-01-02] MEDS ORDERED: IPRATROPIUM-ALBUTEROL 3 ML NEB INHALATION STA (13:26)
--- NOTE | 2020-01-02 13:29 | ED ---
General Adult HPI - General Chief complaint: Shortness of Breath Stated complaint: DEREK Time Seen by Provider: 01/02/20 13:04 Source: patient, RN notes reviewed Mode of arrival: wheelchair Limitations: no limitations - History of Present Illness Initial comments: Patient is a pleasant 74-year-old female presenting to the emergency Department with complaints of difficulty in breathing. Onset of symptoms was the past day or so. Patient does have cough with occasional yellow sputum. No fever. Patient does have history of similar symptoms previously associated with COPD. Patient states she was just in the hospital a few weeks ago. Patient has had some fatigue. No leg pain or leg swelling. - Related Data Home Medications Medication Instructions Recorded Confirmed ALPRAZolam [Xanax] 0.5 mg PO TID 01/16/19 12/10/19 Alendronate Sodium [Fosamax] 70 mg PO FR 01/16/19 12/10/19 Citalopram Hydrobromide 40 mg PO DAILY 01/16/19 12/10/19 [Citalopram HBr] Diltiazem HCl [Diltiazem HCl 24Hr 180 mg PO DAILY 01/16/19 12/10/19 ER] Ipratropium Nebulized [Atrovent 0.5 mg INHALATION RT-QID 01/16/19 12/10/19 Nebulized 0.2 MG/ML] Levothyroxine Sodium [Synthroid] 50 mcg PO DAILY 01/16/19 12/10/19 Losartan [Cozaar] 50 mg PO DAILY 01/16/19 12/10/19 Lovastatin [Mevacor] 40 mg PO DAILY 01/16/19 12/10/19 Zafirlukast [Accolate] 20 mg PO BID 01/16/19 12/10/19 traMADol HCL 50 mg PO TID PRN 01/16/19 12/10/19 Albuterol Nebulized [Ventolin 2.5 mg INHALATION RT-QID PRN 04/26/19 12/10/19 Nebulized] Warfarin Sodium [Coumadin] 5 mg PO HS 06/28/19 12/10/19 Albuterol Sulfate [Ventolin HFA] 1 - 2 puff INHALATION RT-Q6H PRN 08/07/19 12/10/19 Loratadine [Claritin] 10 mg PO DAILY 08/07/19 12/10/19 Insulin Regular, Human [NovoLIN R] See Protocol SQ ACHS MDD 30 UNITS 09/11/19 12/10/19 Multivitamins, Thera [Multivitamin 1 tab PO DAILY 11/27/19 12/10/19 (formulary)] guaiFENesin [Mucinex] 600 mg PO Q12H PRN 12/10/19 12/10/19 predniSONE See Taper PO DAILY 12/10/19 12/10/19 Previous Rx's Medication Instructions Recorded Ferrous Sulfate [Iron (65 MG 325 mg PO DAILY #30 tab 08/10/19 Elemental)] Budesonide-Formot 160-4.5 Mcg 2 puff INHALATION RT-BID #1 puff 09/15/19 [Symbicort 160-4.5 Mcg Inhaler] Pantoprazole [Protonix] 40 mg PO AC-BRKFST #30 tablet. 09/15/19 Furosemide [Lasix] 40 mg PO BID #0 12/02/19 Potassium Chloride [Klor-Con 20] 20 meq PO DAILY #0 12/02/19 Fluconazole [Diflucan] 100 mg PO DAILY #5 tab 12/15/19 Insulin Glargine [Lantus] 70 unit SQ DAILY #1 12/15/19 Levofloxacin [Levaquin] 500 mg PO DAILY #5 tab 12/15/19 Metoprolol Tartrate [Lopressor] 25 mg PO BID #60 tab 12/15/19 predniSONE 10 mg PO DIRECTED #30 tab 12/15/19 Allergies Allergy/AdvReac Type Severity Reaction Status Date / Time Iodinated Contrast Media Allergy Unknown, Verified 01/02/20 13:00 POOR RENAL FUNCTIONS latex AdvReac Rash/Hives Verified 01/02/20 13:00 Penicillins AdvReac Rash/Hives Verified 01/02/20 13:00 Review of Systems ROS Statement: Those systems with pertinent positive or pertinent negative responses have been documented in the HPI. ROS Other: All systems not noted in ROS Statement are negative. Constitutional: Denies: fever, chills Eyes: Denies: eye pain ENT: Denies: ear pain Respiratory: Reports: cough, dyspnea Cardiovascular: Denies: chest pain Endocrine: Reports: fatigue Gastrointestinal: Denies: abdominal pain Genitourinary: Denies: dysuria Musculoskeletal: Denies: back pain Skin: Denies: rash Neurological: Denies: weakness Past Medical History Past Medical History: Atrial Fibrillation, Asthma, Heart Failure, COPD, Diabetes Mellitus, GERD/Reflux, Hearing Disorder / Deafness, Hypertension, Osteoarthritis (OA), Pneumonia, Renal Disease, Thyroid Disorder Additional Past Medical History / Comment(s): HOLE IN RIGHT RETINA. hiatal jose ia, anemia, chronic hypoxic respiratory failure, recent pulmonary infection with pseudomonas aeruginosa confirmed via bronchoscopy and the lavage, History of Any Multi-Drug Resistant Organisms: Other MDRO Past Surgical History: Cholecystectomy, Hysterectomy Additional Past Surgical History / Comment(s): CATARACT REMOVAL LEFT EYE. Past Anesthesia/Blood Transfusion Reactions: No Reported Reaction Past Psychological History: Anxiety, Panic Disorder Smoking Status: Never smoker Past Alcohol Use History: None Reported Past Drug Use History: None Reported - Past Family History Mother Family Medical History: No Reported History General Exam Limitations: no limitations General appearance: alert, in no apparent distress Head exam: Present: normocephalic Eye exam: Present: normal appearance Neck exam: Present: normal inspection Respiratory exam: Present: wheezes, decreased breath sounds Cardiovascular Exam: Present: regular rate, normal rhythm GI/Abdominal exam: Present: soft. Absent: distended, tenderness Extremities exam: Present: pedal edema (Trace bilateral which patient states is chronic). Absent: calf tenderness Neurological exam: Present: alert Psychiatric exam: Present: normal affect, normal mood Skin exam: Present: normal color Course Vital Signs 01/02/20 01/02/20 01/02/20 12:57 13:06 14:07 Temperature 97.7 F Pulse Rate 77 70 Respiratory 26 H 30 H Rate Blood Pressure 146/66 O2 Sat by Pulse 95 Oximetry 01/02/20 14:17 Temperature Pulse Rate 67 Respiratory Rate Blood Pressure O2 Sat by Pulse Oximetry EKG Findings - EKG Comments: EKG Findings:: Normal sinus rhythm at 70. IL 158. QRS 90. QT 392. QTC 423. Left axis. LVH criteria. No acute ST change. Medical Decision Making - Medical Decision Making Patient reevaluated and updated. Case discussed with Dr. nunez, who will admit covering for Dr. Medrano - Lab Data Result diagrams: 01/02/20 13:38 Lab Results 01/02/20 01/02/20 01/02/20 Range/Units 13:38 13:38 13:38 PT 45.5 H (9.0-12.0) sec INR 4.6 H (<1.2) APTT 59.9 H (22.0-30.0) sec Sodium 134 L (137-145) mmol/L Potassium 4.7 (3.5-5.1) mmol/L Chloride 102 (98-107) mmol/L Carbon Dioxide 29 (22-30) mmol/L Anion Gap 3 mmol/L BUN 38 H (7-17) mg/dL Creatinine 1.16 H (0.52-1.04) mg/dL Est GFR (CKD-EPI)AfAm 55 (>60 ml/min/1.73 sqM) Est GFR (CKD-EPI)NonAf 47 (>60 ml/min/1.73 sqM) Glucose 392 H (74-99) mg/dL Plasma Lactic Acid Yasir 1.4 (0.7-2.0) mmol/L Calcium 8.0 L (8.4-10.2) mg/dL Total Bilirubin 0.4 (0.2-1.3) mg/dL AST 19 (14-36) U/L ALT 17 (4-34) U/L Alkaline Phosphatase 66 (38-126) U/L Total Protein 6.2 L (6.3-8.2) g/dL Albumin 3.1 L (3.5-5.0) g/dL Coronavirus (PCR) (Not Detectd) 01/02/20 Range/Units 13:38 PT (9.0-12.0) sec INR (<1.2) APTT (22.0-30.0) sec Sodium (137-145) mmol/L Potassium (3.5-5.1) mmol/L Chloride (98-107) mmol/L Carbon Dioxide (22-30) mmol/L Anion Gap mmol/L BUN (7-17) mg/dL Creatinine (0.52-1.04) mg/dL Est GFR (CKD-EPI)AfAm (>60 ml/min/1.73 sqM) Est GFR (CKD-EPI)NonAf (>60 ml/min/1.73 sqM) Glucose (74-99) mg/dL Plasma Lactic Acid Yasir (0.7-2.0) mmol/L Calcium (8.4-10.2) mg/dL Total Bilirubin (0.2-1.3) mg/dL AST (14-36) U/L ALT (4-34) U/L Alkaline Phosphatase (38-126) U/L Total Protein (6.3-8.2) g/dL Albumin (3.5-5.0) g/dL Coronavirus (PCR) Not Detected (Not Detectd) - Radiology Data Radiology results: image reviewed (Chest x-ray shows cardiac megaly. Mild pulmonary vascular congestion, correlate for fluid overload. Interstitial yanelis nges could reflect atypical pneumonia or interstitial pneumonitis. Possible nodularity right mid lung peripheral.) Disposition Clinical Impression: COPD with acute exacerbation Disposition: ADMITTED IP TO THIS HOSP Is patient prescribed a controlled substance at d/c from ED?: No Referrals: Verona Medrano MD [Primary Care Provider] - 1-2 days
--- NOTE | 2020-01-02 14:17 | XR ---
EXAMINATION TYPE: XR chest 2V DATE OF EXAM: 01/02/2020 COMPARISON: 12/10/2019 HISTORY: 74 year-old female shortness of breath, difficulty breathing TECHNIQUE: PA and lateral views FINDINGS: Heart mildly enlarged. Diffuse interstitial density. Patchy bibasilar opacities. Possible subtle nodu lar density along the left heart margin and peripheral right midlung. No pleural effusion. IMPRESSION: 1. Mild cardiomegaly. Correlate to exclude fluid overload state and mild pulmonary vascular congestio n. 2. Alternatively, the interstitial changes could reflect atypical pneumonia or interstitial pneumonit is. 3. Follow-up after treatment to reassess and exclude underlying nodularity at the peripheral right mi d lung and along the left heart margin.
[2020-01-02 14:18] LABS: INR 4.6 (<1.2); Partial Thromboplastin Time 59.9 sec (22.0-30.0); Prothrombin Time 45.5 sec (9.0-12.0)
[2020-01-02 14:32] LABS: Albumin 3.1 g/dL (3.5-5.0); Potassium 4.7 mmol/L (3.5-5.1); Total Bilirubin 0.4 mg/dL (0.2-1.3); Total Protein 6.2 g/dL (6.3-8.2)
[2020-01-02] MEDS ORDERED: IPRATROPIUM-ALBUTEROL 3 ML NEB INHALATION PRN (14:47)
[2020-01-02] MEDS ORDERED: LEVOFLOXACIN 750MG-D5W PMX 750 MG in DEXTROSE/WATER 1 150ML.BAG IVPB STA (14:48)
[2020-01-02] MEDS: IPRATROPIUM-ALBUTEROL 3 ML NEB INHALATION SCH ×2 (17:08→19:46)
[2020-01-02 17:45] LABS: Glucose,Whole Blood 356 mg/dL (75-99)
[2020-01-02] MEDS: INSULIN ASPART (NovoLOG) 100 UNIT/ML VIAL SQ SCH ×2 (17:46→22:29)
[2020-01-02] MEDS: methylPREDNISolone SOD SUCCI 125 MG/2 ML VIAL IV SCH ×2 (17:48→23:23)
[2020-01-02] MEDS ORDERED: traMADol 50 MG TAB PO PRN (20:31)
[2020-01-02] MEDS ORDERED: guaiFENesin 600 MG TABLET.ER PO PRN (20:31)
[2020-01-02] MEDS ORDERED: HYDROmorphone 0.5 MG/0.5 ML SYRINGE IVP PRN (20:37)
[2020-01-02] MEDS ORDERED: HYDROcodone/APAP 5-325MG 1 EACH TAB PO PRN (20:37)
--- NOTE | 2020-01-02 21:53 | HP ---
HISTORY AND PHYSICAL DATE OF SERVICE: 01/02/2020 CHIEF COMPLAINT: Shortness of breath. HISTORY OF PRESENT ILLNESS: This 74-year-old woman with a past medical history of multiple medical problems, including asthma, atrial fibrillation, history of COPD, diabetes mellitus, GERD, hyperlipidemia, DJD, pneumonia, being followed by Dr. Medrano in the outpatient setting, was not feeling well for the past couple of days. The patient does not have any contact with [facility]. Because of increasing shortness of breath, the patient came to [facility] and was admitted for further evaluation and treatment. The chest x-ray showed some cardiomegaly, mild pulmonary vascular congestion. Otherwise, some interstitial changes also noted. X-ray was personally reviewed by me. The patient was recently discharged from the hospital with shortness of breath as well as some CHF, acute exacerbation. There is no history of any fever, rigor or chills. No history of headache, loss of consciousness, seizures. PAST MEDICAL HISTORY: History of atrial fibrillation, history of CHF, COPD, diabetes mellitus, GERD, hypertension DJD. HOME MEDICATIONS: 1. Ultram 50 mg t.i.d. p.r.n. 2. Mucinex 600 mg p.o. b.i.d. p.r.n. 3. Accolate 20 mg p.o. b.i.d. 4. Coumadin 5 mg p.o. at bedtime. 5. Klor-Con 20 mEq p.o. daily. 6. Protonix 40 mg with breakfast. 7. Multivitamin 1 p.o. daily. 8. Lopressor. 9. Mevacor. 10.Cozaar. 11.Claritin. 12.Synthroid. 13.Atrovent. 14.Novolin. 15.Lantus. 16.Lasix. 17.Celexa. 18.Symbicort. 19.Fosamax. 20.Ventolin. 21.Xanax. ALLERGIES: IODINATED CONTRAST, LATEX, PENICILLIN. FAMILY HISTORY: No history of heart disease or strokes in the family. SOCIAL HISTORY: No history of smoking. No history of alcohol intake. REVIEW OF SYSTEMS: ENT: Diminished hearing. Diminished vision. CARDIOVASCULAR SYSTEM: As mentioned earlier. RESPIRATORY SYSTEM: As mentioned earlier. GI: As mentioned earlier. : No dysuria or retention. NERVOUS SYSTEM: No numbness, weakness. ALLERGY/IMMUNOLOGY: No asthma, hayfever. MUSCULOSKELETAL: As mentioned earlier. HEMATOLOGY/ONCOLOGY: No history of anemia. ENDOCRINE: No history of diabetes, hypothyroidism. CONSTITUTIONAL: As mentioned earlier. DERMATOLOGY: Negative. RHEUMATOLOGY: Negative. PSYCHIATRY: As mentioned earlier. PHYSICAL EXAMINATION: Patient alert and oriented x3. Pulse is 70, blood pressure 144/61, respiration 24, temperature 98 degrees, pulse ox 98% on 2 L. HEENT: Conjunctivae normal. NECK: No jugular venous distention. CARDIOVASCULAR SYSTEM: S1, S2 muffled. RESPIRATORY SYSTEM: Breath sounds diminished at the bases. Bilateral scattered rhonchi and crackles. Breathing efforts increased. ABDOMEN: Soft, obese, non-tender. LEGS: Bilateral leg edema, rather chronic. NERVOUS SYSTEM: Higher functions as mentioned earlier. Moves all 4 limbs. No focal motor or sensory deficit. LYMPHATICS: No lymph node palpable in neck, axillae or groin. SKIN: No ulcer, rash, bleeding. JOINTS: No active deforming arthropathy. LABS: INR 4.6, sodium 135, and creatinine is 1.16. COVID is negative. ASSESSMENT: 1. Shortness of breath, multifactorial, possibly COPD, acute exacerbation, as well as congestive heart failure, acute exacerbation, with acute on chronic diastolic dysfunction. 2. Hyponatremia. 3. Increased creatinine with possibly chronic kidney disease, stage 3. 4. Coumadin coagulopathy. 5. History of asthma. 6. History of atrial fibrillation. 7. History of chronic obstructive pulmonary disease. 8. Diabetes mellitus, type 2. 9. Gastroesophageal reflux disease. 10.Hard of hearing. 11.Degenerative joint disease. 12.History of pneumonia. 13.History of right retinal hole. 14.Hiatal hernia. 15.Chronic hypoxic respiratory failure. 16.History of MDRO Pseudomonas in the sputum. 17.History of cholecystectomy. 18.History of hysterectomy. 19.Anxiety, panic attacks. RECOMMENDATIONS AND DISCUSSION: In this 74-year-old woman who presented with multiple complex medical issues, we will monitor the patient closely, continue the current medications, continue symptomatic treatment. Will initiate bronchodilators, steroids. Will also consult Dr. Butler. Otherwise, resume the home medications. Prognosis guarded because of multiple complex medical issues. Further recommendations to follow. A copy of this dictation is being forwarded to Dr. Medrano, who is the primary physician. MMODL / IJN: [id number] /
[2020-01-02 22:16] LABS: Glucose,Whole Blood 472 mg/dL (75-99)
[2020-01-02] MEDS: METOPROLOL TARTRATE 25 MG TAB PO SCH (22:25)
[2020-01-02] MEDS: FUROSEMIDE 10 MG/ML 4 ML VIAL IV SCH (22:26)
[2020-01-02] MEDS: MONTELUKAST 10 MG TAB PO SCH (22:27)
[2020-01-02] MEDS: ALPRAZolam 0.5 MG TAB PO SCH (22:27)
[2020-01-03] MEDS: methylPREDNISolone SOD SUCCI 125 MG/2 ML VIAL IV SCH ×3 (05:42→16:39)
[2020-01-03] MEDS: LEVOTHYROXINE 50 MCG TAB PO SCH (05:43)
[2020-01-03 06:42] LABS: Anisocytosis Slight; Basophils % (A) 0 %; Eosinophils % (A) 0 %; HCT 27.7 % (34.0-46.0); HGB 8.9 gm/dL (11.4-16.0); Hypochromasia Slight; Lymphocytes # (A) 0.8 k/uL (1.0-4.8); Lymphocytes % (A) 15 %; MCH 27.2 pg (25.0-35.0); MCHC 32.2 g/dL (31.0-37.0); MCV 84.4 fL (80.0-100.0); Mean Platelet Volume 6.9; Monocytes # (A) 0.1 k/uL (0-1.0); Monocytes % (A) 2 %; Neutrophils # (A) 4.2 k/uL (1.3-7.7); Neutrophils % (A) 83 %; Platelet Count 161 k/uL (150-450); RBC 3.28 m/uL (3.80-5.40); RDW 16.1 % (11.5-15.5); WBC 5.1 k/uL (3.8-10.6)
[2020-01-03 07:03] LABS: Glucose,Whole Blood 382 mg/dL (75-99)
[2020-01-03] MEDS: FERROUS SULFATE 325 MG TAB PO SCH (07:25)
[2020-01-03] MEDS: MULTIVITAMINS, THERA 1 EACH TAB PO SCH (07:25)
[2020-01-03] MEDS: CITALOPRAM HYDROBROMIDE 20 MG TAB PO SCH (07:25)
[2020-01-03] MEDS: METOPROLOL TARTRATE 25 MG TAB PO SCH ×2 (07:25→21:28)
[2020-01-03] MEDS: POTASSIUM CHLORIDE ER 20 MEQ TAB.ER PO SCH (07:25)
[2020-01-03] MEDS: LOSARTAN 50 MG TAB PO SCH (07:25)
[2020-01-03] MEDS: ALPRAZolam 0.5 MG TAB PO SCH ×3 (07:25→21:27)
[2020-01-03] MEDS: INSULIN DETEMIR (LEVEMIR) 100 UNIT/ML SYR SQ SCH (07:26)
[2020-01-03] MEDS: PANTOPRAZOLE 40 MG TABLET PO SCH (07:26)
[2020-01-03] MEDS: LORATADINE 10 MG TAB PO SCH (07:26)
[2020-01-03] MEDS: ATORVASTATIN 10 MG TAB PO SCH (07:26)
[2020-01-03] MEDS: INSULIN ASPART (NovoLOG) 100 UNIT/ML VIAL SQ SCH ×4 (07:26→21:28)
[2020-01-03] MEDS: FUROSEMIDE 10 MG/ML 4 ML VIAL IV SCH ×2 (07:27→21:20)
[2020-01-03] MEDS: IPRATROPIUM-ALBUTEROL 3 ML NEB INHALATION SCH ×4 (07:40→19:28)
[2020-01-03] MEDS: SYMBICORT 160-4.5 MCG INHALER INHALATION SCH ×2 (07:40→19:29)
[2020-01-03] MEDS: DILTIAZEM CD 180 MG CAP.ER.24H PO SCH (08:02)
[2020-01-03 11:11] LABS: African American GFR (CKD) 47.5 (60.0-200.0); Anion Gap 7.5 mmol/L (4.00-12.00); BUN/Creat Ratio 28.46 Ratio (12.00-20.00); Carbon Dioxide 29.5 mmol/L (21.6-31.8); Potassium 4.5 mmol/L (3.5-5.5)
[2020-01-03 11:49] LABS: Glucose,Whole Blood 396 mg/dL (75-99)
[2020-01-03 12:09] LABS: INR 4.56 (0.90-1.11); Prothrombin Time 44.8 sec (9.9-11.9)
--- NOTE | 2020-01-03 16:04 | PN ---
PROGRESS NOTE DATE OF SERVICE: 01/03/2020 This is a 74-year-old woman who was admitted with shortness of breath, possibly multifactorial with COPD and CHF acute exacerbation. The patient also had several multiple admissions along with shortness of breath with various combination of the above mentioned illness. Patient also might have supra pneumonia also. Dr. Medrano is following the patient closely in the outpatient setting. The patient also had bilateral leg swelling also. The patient is on IV diuretics at this time. PAST MEDICAL HISTORY: Reviewed. REVIEW OF SYSTEMS: CARDIOVASCULAR SYSTEM: As mentioned earlier. NEUROLOGIC: As mentioned earlier. GI: As mentioned earlier. : No dysuria. NERVOUS SYSTEM: No numbness or weakness. CURRENT MEDICATIONS: Reviewed and include: 1. [place]. 2. DuoNeb. 3. Xanax. 4. Lipitor. 5. Symbicort. 6. Celexa. 7. Cardizem CD. 8. Iron sulfate. 9. Lasix. 10.Mucinex. 11.Levaquin. 12.Claritin. 13.Cozaar. 14.Solu-Medrol. 15.Lopressor. 16.Singulair. 17.Protonix. PHYSICAL EXAM: Patient is alert, oriented x3. The pulse is 85, blood pressure 170/76, respiration 17, temperature 97.9, pulse ox 98% on 3 L. HEENT: Conjunctivae normal. RESPIRATORY SYSTEM: Breath sounds diminished at the bases, bilateral scattered rhonchi, no crackles. ABDOMEN: Soft, nontender. LEGS: No edema. No swelling. LABS: WBC 5.2, hemoglobin is 8.9, INR is 4.56. Other labs are noted. ASSESSMENT: 1. Shortness of breath, possibly multifactorial, COPD acute exacerbation as well as congestive heart failure acute exacerbation with acute on chronic diastolic dysfunction. 2. Hyponatremia. 3. Possible bibasilar pneumonia. 4. Increased creatinine with possibly chronic kidney stage 3. 5. Coumadin coagulopathy. 6. History of asthma. 7. History of atrial fibrillation. 8. History of chronic obstructive pulmonary disease. 9. Diabetes mellitus type 2. 10.Gastroesophageal reflux disease. 11.Hard of hearing. 12.Degenerative joint disease. 13.History of pneumonia. 14.History of right retinal hole. 15.Hiatal hernia. 16.Chronic hypoxic respiratory failure. 17.History of MDR Pseudomonas in the sputum. 18.History of cholecystectomy. 19.History of hysterectomy. 20.Anxiety, panic attack history. 21.Coumadin coagulopathy. RECOMMENDATION: In this 74-year-old woman who presented with multiple complex medical issues, will monitor the patient closely, continue with the current management and symptomatic treatment, IV antibiotics. Continue with the bronchodilators. Continue steroids. Closely follow with Pulmonary and Cardiology. Guarded prognosis because of multiple complex medical issues. Further recommendations to follow. MMODL / IJN: [id number] /
[2020-01-03 17:02] LABS: Glucose,Whole Blood 378 mg/dL (75-99)
--- NOTE | 2020-01-03 17:46 | CONS ---
CONSULTATION DATE OF SERVICE: January 03, 2020. REASON FOR CONSULTATION: Shortness of breath. HISTORY OF PRESENT ILLNESS: This is a 74-year-old female well known to our service. She has a history of underlying COPD/asthma. This is her 8th admission this year already. The patient comes into the emergency room complaining of increasing shortness of breath, difficulty breathing, chest congestion, cough, and phlegm production. She states she had an upper respiratory tract infection or cold. She is coughing up occasional yellow phlegm. No fever or chills. No chest pain or chest discomfort. No nausea, vomiting, diarrhea, or abdominal pain. No genitourinary complaints. This is her typical presentation. She was just recently in the hospital and underwent bronchoscopy. She is colonized with Pseudomonas. Often times on bronchoscopy or sputum analysis, we will find Pseudomonas aeruginosa. CURRENT MEDICATIONS: Reviewed. She is on Xanax, Fosamax, citalopram, diltiazem, albuterol and Atrovent updrafts, levothyroxine, losartan, Mevacor, Accolade, tramadol warfarin, albuterol inhaler, Claritin, insulin, multivitamins, Mucinex, prednisone, iron, Symbicort, Protonix, Lasix, potassium, Diflucan, insulin, Levaquin, and metoprolol. ALLERGIES: Include IVP DYE, LATEX and PENICILLIN. MEDICAL HISTORY: Atrial fibrillation, asthma/COPD, CHF, diabetes, GERD, deafness, hypertension, DJD, pneumonia, and hypothyroidism. In addition, she has a history of hiatal hernia, chronic anemia, chronic hypoxemic respiratory failure, chronic Pseudomonas infections and colonization and multiple previous bronchoscopies for the same. SURGICAL HISTORY: Includes cholecystectomy, hysterectomy, multiple bronchoscopies as well as cataract surgery in the left eye. SOCIAL HISTORY: Negative for tobacco use. She denies any alcohol or illicit drug use. FAMILY HISTORY: Unremarkable. Mother was healthy. REVIEW OF SYSTEMS: CONSTITUTIONAL negative. NEUROLOGIC negative. HEENT negative. CARDIOVASCULAR negative. PULMONARY shortness of breath, chest tightness, cough, wheezing, chest congestion and phlegm production. GI negative. negative. RHEUMATOLOGIC negative. IMMUNOLOGIC negative. ENDOCRINOLOGIC negative. DERMATOLOGIC negative. PHYSICAL EXAMINATION: VITAL SIGNS: Current vital signs are reviewed. Temperature 97.9. Heart rate 72. Respiratory rate 17, blood pressure is 171/76, mean 107. 3 L saturation 98%. GENERAL: Appears in no acute distress. HEENT: Examination is grossly unremarkable. Nasal O2 noted. NECK: Supple. Full range of motion. No adenopathy. Neck veins are flat. CARDIOVASCULAR: Examination reveals regular rhythm and rate. Heart rate 72 beats per minute. S1, S2 normal. No S3, S4, or murmur. LUNGS: Reveal diffuse coarse inspiratory and expiratory rhonchi and wheezes. There is prolongation on forced maneuver. No crackles. Breath sounds equal bilaterally. Adventitious lung sounds are more prominent on forced maneuver. ABDOMEN: Obese. Bowel sounds are heard. EXTREMITIES are intact. No cyanosis, clubbing or edema. SKIN: Without rash. NEUROLOGIC: Examination is brief but nonfocal. LABORATORY DATA: White count 5.1, hemoglobin 8.9, hematocrit 27.7, platelet count 151,000. PT 44.8, INR 4.56. Sodium 139, potassium 4.5, chloride 102, CO2 29.5, anion gap 7.5, BUN 37, and creatinine 1.3. Covid testing was negative. Microbiology testing is negative. Chest x-ray from January 01 shows mild cardiomegaly with possible mild fluid overload/vascular congestion. In addition, there is some nodularity noted in the peripheral right midlung and along the left heart margin. Current medications are reviewed. The patient is on Fosamax, Xanax, Lipitor, Symbicort, Celexa, Cardizem, iron, Lasix, Mucinex, [place], Dilaudid, insulin, albuterol/Atrovent updrafts, Levaquin, levothyroxine, Claritin, losartan, Solu-Medrol, metoprolol, Singulair, multivitamins, Protonix, potassium and Tramadol. ASSESSMENT: 1. Asthma exacerbation complicated by purulent tracheobronchitis, without josé miguel pneumonia. 2. Multiple hospitalizations this year alone, 8 to be exact, for similar condition. 3. History of atrial fibrillation. 4. History of congestive heart failure. 5. History of diabetes mellitus. 6. Lifelong nonsmoker. 7. Gastroesophageal reflux disease. 8. Deafness. 9. Hypertension. 10.Degenerative joint disease. 11.Pneumonia. 12.Hypothyroidism. 13.Hiatal hernia. 14.Chronic anemia. 15.Chronic hypoxemic respiratory failure. PLAN: The patient is placed on steroid medications. No additional recommendations made. We will continue to follow. Prognosis is guarded. She is currently on appropriate medications including DuoNeb, Symbicort, and Levaquin. MMODL / IJN: [id number] /
[2020-01-03 20:57] LABS: Glucose,Whole Blood 315 mg/dL (75-99)
[2020-01-04] MEDS: methylPREDNISolone SOD SUCCI 125 MG/2 ML VIAL IV SCH ×5 (00:33→22:59)
[2020-01-04] MEDS: MONTELUKAST 10 MG TAB PO SCH ×2 (00:39→21:55)
[2020-01-04] MEDS: LEVOTHYROXINE 50 MCG TAB PO SCH (05:32)
[2020-01-04 07:02] LABS: Anisocytosis Slight; Basophils % (A) 0 %; Eosinophils % (A) 0 %; HCT 27.6 % (34.0-46.0); HGB 8.8 gm/dL (11.4-16.0); Hypochromasia Slight; Lymphocytes # (A) 0.5 k/uL (1.0-4.8); Lymphocytes % (A) 5 %; MCH 26.6 pg (25.0-35.0); MCHC 31.7 g/dL (31.0-37.0); MCV 83.9 fL (80.0-100.0); Monocytes # (A) 0.3 k/uL (0-1.0); Monocytes % (A) 3 %; Neutrophils # (A) 8.1 k/uL (1.3-7.7); Neutrophils % (A) 91 %; Platelet Count 199 k/uL (150-450); RBC 3.29 m/uL (3.80-5.40); RDW 16.2 % (11.5-15.5); WBC 8.9 k/uL (3.8-10.6)
[2020-01-04 07:07] LABS: Glucose,Whole Blood 274 mg/dL (75-99)
[2020-01-04] MEDS: SYMBICORT 160-4.5 MCG INHALER INHALATION SCH ×2 (07:19→20:42)
[2020-01-04] MEDS: IPRATROPIUM-ALBUTEROL 3 ML NEB INHALATION SCH ×4 (07:19→20:39)
[2020-01-04] MEDS: FUROSEMIDE 10 MG/ML 4 ML VIAL IV SCH (07:43)
[2020-01-04] MEDS: ALPRAZolam 0.5 MG TAB PO SCH ×3 (07:44→21:55)
[2020-01-04] MEDS: CITALOPRAM HYDROBROMIDE 20 MG TAB PO SCH (07:44)
[2020-01-04] MEDS: INSULIN ASPART (NovoLOG) 100 UNIT/ML VIAL SQ SCH ×4 (07:44→21:54)
[2020-01-04] MEDS: ATORVASTATIN 10 MG TAB PO SCH (07:44)
[2020-01-04] MEDS: LOSARTAN 50 MG TAB PO SCH (07:45)
[2020-01-04] MEDS: MULTIVITAMINS, THERA 1 EACH TAB PO SCH (07:45)
[2020-01-04] MEDS: INSULIN DETEMIR (LEVEMIR) 100 UNIT/ML SYR SQ SCH (07:45)
[2020-01-04] MEDS: DILTIAZEM CD 180 MG CAP.ER.24H PO SCH (07:45)
[2020-01-04] MEDS: FERROUS SULFATE 325 MG TAB PO SCH (07:45)
[2020-01-04] MEDS: METOPROLOL TARTRATE 25 MG TAB PO SCH ×2 (07:45→21:55)
[2020-01-04] MEDS: POTASSIUM CHLORIDE ER 20 MEQ TAB.ER PO SCH (07:45)
[2020-01-04] MEDS: LORATADINE 10 MG TAB PO SCH (07:45)
[2020-01-04] MEDS: PANTOPRAZOLE 40 MG TABLET PO SCH (07:46)
[2020-01-04] MEDS ORDERED: NON FORMULARY DRUG (Alendronate Sodium [Fosamax] 70 MG Tablet) PO SCH (09:00)
[2020-01-04 10:22] LABS: African American GFR (CKD) 34.3 (60.0-200.0); Anion Gap 8.8 mmol/L (4.00-12.00); Calcium 7.8 mg/dL (8.7-10.3); Carbon Dioxide 27.2 mmol/L (21.6-31.8); Non-African American GFR(CKD) 29.6 (60.0-200.0); Potassium 4.3 mmol/L (3.5-5.5)
[2020-01-04 11:31] LABS: Glucose,Whole Blood 452 mg/dL (75-99)
[2020-01-04] MEDS ORDERED: INSULIN ASPART (NovoLOG) 100 UNIT/ML VIAL SQ ONE (11:55)
--- NOTE | 2020-01-04 12:23 | P.CRDCN ---
History of Present Illness Consult date: 01/04/20 History of present illness: CHIEF COMPLAINT: CHF HISTORY OF PRESENT ILLNESS: This is a 74-year old female with a past medical history significant for COPD, hypertension, hyperlipidemia, and paroxysmal atrial fibrillation. Patient follows in the office with Dr. Pruett. We have been asked to see the patient in consultation for congestive heart failure. Patient examined this morning at the bedside. Patient states she presented to the hospital secondary to shortness of breath and a dry cough. Patient reports she was recently hospitalized for similar symptoms and underwent bronchoscopy. Patient reports her shortness of breath has improved since coming to the hospital. She reports feeling like she has drainage in her throat. She denies chest pain or pressure. She is receiving IV steroids and IV antibiotics. DIAGNOSTICS: EKG reveals sinus rhythm without signs of acute ischemia Chest xray mild cardiomegaly. Correlate to exclude fluid overload state and mild pulmonary vascular congestion. Alternatively the interstitial changes could reflect atypical pneumonia or interstitial pneumonitis. Laboratory data: W BC 8.9. Hemoglobin 8.8. Platelet count 199. Sodium 138. Potassium 4.3. BUN 51. Creatinine 1.7. BNP 852. INR 4.56 Current home cardiac medications include Coumadin 5 mg daily, metoprolol 25 mg twice a day, losartan 50 mg daily, Lasix 40 mg by mouth twice a day, Cardizem 180 mg daily Echocardiogram completed in October 2019 revealed ejection fraction 55-60%, mild mitral regurgitation, moderate to severe tricuspid regurgitation, and moderate to severe pulmonary hypertension REVIEW OF SYSTEMS: At the time of my exam: CONSTITUTIONAL: Denies fever or chills. HEENT: Denies blurred vision, vision changes, or eye pain. Denies hemoptysis CARDIOVASCULAR: Denies chest pain, orthopnea, PND or palpitations RESPIRATORY: No shortness of breath. GASTROINTESTINAL: Denies abdominal pain. Denies nausea or vomiting. HEMATOLOGIC: Denies bleeding disorders. GENITOURINARY: Denies any blood in urine. SKIN: Denies pruitis. Denies rash. PHYSICAL EXAM: VITAL SIGNS: Reviewed. GENERAL: Well-developed in no acute distress. HEENT: Head is normocephalic. Pupils are equal, round. Sclerae anicteric. Mucous membranes of the mouth are moist. Neck supple. No JVD or thyromegaly LUNGS: Respirations even and unlabored. Lungs coarse with scattered rhonchi. HEART: Regular rate and rhythm. S1 and S2 heard. ABDOMEN: Soft. Nondistended. Nontender. EXTREMITIES: Normal range of motion. No clubbing or cyanosis. Peripheral pulses intact. Trace bilateral lower extremity edema NEUROLOGIC: Awake and alert. Oriented x 3. ASSESSMENT: Acute exacerbation of COPD Acute exacerbation of chronic diastolic congestive heart failure, EF 55-60% Acute kidney injury Purulent tracheobronchitis Supratherapeutic INR Paroxysmal atrial fibrillation, maintained on long-term anticoagulation with Coumadin Hypertension Hyperlipidemia Moderate to severe tricuspid regurgitation Moderate to severe pulmonary hypertension Hypothyroidism Obesity BMI 40.3 PLAN: Continue to hold Coumadin secondary to elevated INR. Monitor INR daily Continue IV steroids and antibiotics per pulmonary Discontinue IV Lasix today secondary to acute kidney injury Monitor kidney function Resume oral Lasix tomorrow. We will change patient's dose to 80 mg by mouth daily per Dr. Kearns Daily weights Accurate I&O Further recommendations pending patient course Nurse practitioner note has been reviewed by physician. Signing provider agrees with the documented findings, assessment, and plan of care. Past Medical History Past Medical History: Atrial Fibrillation, Asthma, Heart Failure, COPD, Diabetes Mellitus, GERD/Reflux, Hearing Disorder / Deafness, Hypertension, Osteoarthritis (OA), Pneumonia, Renal Disease, Thyroid Disorder Additional Past Medical History / Comment(s): HOLE IN RIGHT RETINA. hiatal hernia, anemia, chronic hypoxic respiratory failure, recent pulmonary infection with pseudomonas aeruginosa confirmed via bronchoscopy and the lavage, History of Any Multi-Drug Resistant Organisms: Other MDRO Past Surgical History: Cholecystectomy, Hysterectomy Additional Past Surgical History / Comment(s): CATARACT REMOVAL LEFT EYE. Past Anesthesia/Blood Transfusion Reactions: No Reported Reaction Past Psychological History: Anxiety, Panic Disorder Smoking Status: Never smoker Past Alcohol Use History: None Reported Past Drug Use History: None Reported - Past Family History Mother Family Medical History: No Reported History Medications and Allergies Home Medications Medication Instructions Recorded Confirmed Type ALPRAZolam [Xanax] 0.5 mg PO TID 01/16/19 01/02/20 History Alendronate Sodium [Fosamax] 70 mg PO FR 01/16/19 01/02/20 History Citalopram Hydrobromide 40 mg PO DAILY 01/16/19 01/02/20 History [Citalopram HBr] Diltiazem HCl [Diltiazem HCl 24Hr 180 mg PO DAILY 01/16/19 01/02/20 History ER] Ipratropium Nebulized [Atrovent 0.5 mg INHALATION RT-QID 01/16/19 01/02/20 History Nebulized 0.2 MG/ML] Levothyroxine Sodium [Synthroid] 50 mcg PO DAILY 01/16/19 01/02/20 History Losartan [Cozaar] 50 mg PO DAILY 01/16/19 01/02/20 History Lovastatin [Mevacor] 40 mg PO DAILY 01/16/19 01/02/20 History Zafirlukast [Accolate] 20 mg PO BID 01/16/19 01/02/20 History traMADol HCL 50 mg PO TID PRN 01/16/19 01/02/20 History Albuterol Nebulized [Ventolin 2.5 mg INHALATION RT-QID PRN 04/26/19 01/02/20 History Nebulized] Warfarin Sodium [Coumadin] 5 mg PO HS 06/28/19 01/02/20 History Albuterol Sulfate [Ventolin HFA] 1 - 2 puff INHALATION RT-Q6H PRN 08/07/19 01/02/20 History Loratadine [Claritin] 10 mg PO DAILY 08/07/19 01/02/20 History Ferrous Sulfate [Iron (65 MG 325 mg PO DAILY #30 tab 08/10/19 01/02/20 Rx Elemental)] Insulin Regular, Human [NovoLIN R] See Protocol SQ ACHS MDD 30 UNITS 09/11/19 01/02/20 History Budesonide-Formot 160-4.5 Mcg 2 puff INHALATION RT-BID #1 puff 09/15/19 01/02/20 Rx [Symbicort 160-4.5 Mcg Inhaler] Pantoprazole [Protonix] 40 mg PO AC-BRKFST #30 tablet. 09/15/19 01/02/20 Rx Multivitamins, Thera [Multivitamin 1 tab PO DAILY 11/27/19 01/02/20 History (formulary)] Furosemide [Lasix] 40 mg PO BID #0 12/02/19 01/02/20 Rx Potassium Chloride [Klor-Con 20] 20 meq PO DAILY #0 12/02/19 01/02/20 Rx guaiFENesin [Mucinex] 600 mg PO Q12H PRN 12/10/19 01/02/20 History Insulin Glargine [Lantus] 70 unit SQ DAILY #1 12/15/19 01/02/20 Rx Metoprolol Tartrate [Lopressor] 25 mg PO BID #60 tab 12/15/19 01/02/20 Rx Allergies Allergy/AdvReac Type Severity Reaction Status Date / Time Iodinated Contrast Media Allergy Unknown, Verified 01/02/20 15:20 POOR RENAL FUNCTIONS latex AdvReac Rash/Hives Verified 01/02/20 15:20 Penicillins AdvReac Rash/Hives Verified 01/02/20 15:20 Physical Exam Vitals: Vital Signs Temp Pulse Pulse Resp BP Pulse Ox 01/04/20 11:25 84 01/04/20 11:13 84 01/04/20 07:31 84 01/04/20 07:30 18 01/04/20 07:19 80 01/04/20 07:00 97.8 F 74 18 126/73 97 01/04/20 01:20 97.5 F L 72 16 146/77 97 01/03/20 21:06 97.9 F 77 16 138/68 99 01/03/20 19:39 88 01/03/20 19:29 80 01/03/20 16:00 80 17 01/03/20 15:49 97.5 F L 80 17 135/73 100 01/03/20 15:45 84 01/03/20 15:35 76 Intake and Output 01/03/20 01/04/20 01/04/20 22:59 06:59 14:59 Other: Voiding Method Bedside Commode # Voids 1 2 Results 01/04/20 06:24 01/04/20 06:24 Coagulation 01/03/20 Range/Units 06:17 PT 44.8 H (9.9-11.9) sec CBC 01/04/20 Range/Units 06:24 WBC 8.9 (3.8-10.6) k/uL RBC 3.29 L (3.80-5.40) m/uL Hgb 8.8 L (11.4-16.0) gm/dL Hct 27.6 L (34.0-46.0) % Plt Count 199 (150-450) k/uL Comprehensive Metabolic Panel 01/04/20 Range/Units 06:24 Sodium 138 (135-145) mmol/L Potassium 4.3 (3.5-5.5) mmol/L Chloride 102 (96-109) mmol/L Carbon Dioxide 27.2 (21.6-31.8) mmol/L BUN 51.0 H (9.0-27.0) mg/dL Creatinine 1.7 H (0.6-1.5) mg/dL Glucose 268 H (70-110) mg/dL Calcium 7.8 L (8.7-10.3) mg/dL Current Medications Generic Name Dose Route Start Last Admin Trade Name Freq PRN Reason Stop Dose Admin Hydrocodone Bitart/Acetaminophen 1 each 01/02/20 20:37 Hydrocodone/Apap 5-325mg 1 Each Tab PO Q6HR PRN Pain Albuterol/Ipratropium 3 ml 01/02/20 16:00 01/04/20 11:13 Ipratropium-Albuterol 3 Ml Neb INHALATION 3 ml RT-QID JS Administration Albuterol/Ipratropium 3 ml 01/02/20 14:47 Ipratropium-Albuterol 3 Ml Neb INHALATION RT-Q4H PRN Shortness Of Breath Or Wheezing Alprazolam 0.5 mg 01/02/20 22:00 01/04/20 07:44 Alprazolam 0.5 Mg Tab PO 0.5 mg TID JS Administration Atorvastatin Calcium 10 mg 01/03/20 09:00 01/04/20 07:44 Atorvastatin 10 Mg Tab PO 10 mg DAILY JS Administration Budesonide/Formoterol Fumarate 2 puff 01/03/20 08:00 01/04/20 07:19 Symbicort 160-4.5 Mcg Inhaler INHALATION 2 puff RT-BID JS Administration Citalopram Hydrobromide 40 mg 01/03/20 09:00 01/04/20 07:44 Citalopram Hydrobromide 20 Mg Tab PO 40 mg DAILY JS Administration Diltiazem HCl 180 mg 01/03/20 09:00 01/04/20 07:45 Diltiazem Cd 180 Mg Cap.Er.24h PO 180 mg DAILY JS Administration Ferrous Sulfate 325 mg 01/03/20 09:00 01/04/20 07:45 Ferrous Sulfate 325 Mg Tab PO 325 mg DAILY JS Administration Furosemide 80 mg 01/05/20 09:00 Furosemide 80 Mg Tab PO DAILY [facility] Guaifenesin 600 mg 01/02/20 20:31 Guaifenesin 600 Mg Tablet.Er PO Q12H PRN Cough Hydromorphone HCl 0.5 mg 01/02/20 20:37 Hydromorphone 0.5 Mg/0.5 Ml Syringe IVP Q6HR PRN Severe Pain Levofloxacin 750 mg/ IV 150 mls @ 100 mls/hr 01/04/20 15:00 Solution IVPB Q48H [facility] Insulin Aspart 0 unit 01/02/20 17:30 01/04/20 07:44 Insulin Aspart (Novolog) 100 Unit/Ml Vial SQ 4 unit ACHS [facility] Administration Protocol Insulin Detemir 70 unit 01/03/20 09:00 01/04/20 07:45 Insulin Detemir (Levemir) 100 Unit/Ml Syr SQ 70 unit DAILY JS Administration Levothyroxine Sodium 50 mcg 01/03/20 06:30 01/04/20 05:32 Levothyroxine 50 Mcg Tab PO 50 mcg DAILY@0630 JS Administration Loratadine 10 mg 01/03/20 09:00 01/04/20 07:45 Loratadine 10 Mg Tab PO 10 mg DAILY JS Administration Losartan Potassium 50 mg 01/03/20 09:00 01/04/20 07:45 Losartan 50 Mg Tab PO 50 mg DAILY JS Administration Methylprednisolone Sodium Succinate 60 mg 01/02/20 18:00 01/04/20 05:32 Methylprednisolone Sod Succi 125 Mg/2 Ml Vial IV 60 mg Q6HR JS Administration Metoprolol Tartrate 25 mg 01/02/20 21:00 01/04/20 07:45 Metoprolol Tartrate 25 Mg Tab PO 25 mg BID JS Administration Montelukast Sodium 10 mg 01/02/20 21:00 01/04/20 00:39 Montelukast 10 Mg Tab PO 10 mg HS [facility] Administration Multivitamins 1 each 01/03/20 09:00 01/04/20 07:45 Multivitamins, Thera 1 Each Tab PO 1 each DAILY JS Administration Non-Formulary Medication 70 mg 01/04/20 09:00 01/04/20 07:46 Alendronate Sodium [Fosamax] PO Not Given [facility] Pantoprazole Sodium 40 mg 01/03/20 07:30 01/04/20 07:46 Pantoprazole 40 Mg Tablet PO 40 mg AC-BRKFST JS Administration Potassium Chloride 20 meq 01/03/20 09:00 01/04/20 07:45 Potassium Chloride Er 20 Meq Tab.Er PO 20 meq DAILY JS Administration Sodium Chloride 10 ml 01/02/20 21:00 01/04/20 11:42 Sodium Chloride 0.9% Flush 10 Ml Syringe IV Not Given BID [facility] Tramadol HCl 50 mg 01/02/20 20:31 01/03/20 05:45 Tramadol 50 Mg Tab PO 50 mg TID PRN Administration Pain Intake and Output 01/03/20 01/04/20 01/04/20 22:59 06:59 14:59 Other: Voiding Method Bedside Commode # Voids 1 2 01/04/20 06:24 01/04/20 06:24
--- NOTE | 2020-01-04 14:50 | P.PN ---
Subjective Progress Note Date: 01/04/20 Principal diagnosis: Dyspnea, wheezing, cough 72-year-old white female patient that so we'll known to our service and follows with Dr. Mendiola from the pulmonary clinic for history of COPD/asthma, recurrent pulmonary infections, with the sputum cultures in the bronchoscope was cultures positive for pseudomonal infections. Patient has had multiple hospitalizations related to complications related to COPD. She came in on 01/02/2020 with complaints of worsening dyspnea, chest congestion, cough, and yellow phlegm production. Patient had recent upper respiratory infection. Her phlegm is yellow in color. Her Covid 19 PCR was negative, her chest x-ray on admission showed mild cardiomegaly with possible mild fluid overload/vascular congestion with some nodularity in the peripheral right midlung and along the left heart margin. Patient was started on IV Levaquin, IV steroids, nebulized bronchodilators, she is on diuretics. She is feeling better, although not quite back to baseline. Blood culture has shown no growth. Vital signs have been stable overnight Objective - Vital Signs Vital signs: Vital Signs Temp 97.6 F 01/04/20 14:28 Pulse 83 01/04/20 14:28 Resp 18 01/04/20 14:28 BP 116/61 01/04/20 14:28 Pulse Ox 98 01/04/20 14:28 Intake & Output 01/03/20 01/04/20 01/04/20 18:59 06:59 18:59 Other: Voiding Method Toilet Bedside Commode Bedside Commode # Voids 1 2 3 - Exam GENERAL EXAM: Alert, very pleasant, 74-year-old white female, on 2 L of oxygen a pulse ox 98% comfortable in no apparent distress. HEAD: Normocephalic/atraumatic. EYES: Normal reaction of pupils, equal size. Conjunctiva pink, sclera white. NOSE: Clear with pink turbinates. THROAT: No erythema or exudates. NECK: No masses, no JVD, no thyroid enlargement, no adenopathy. CHEST: No chest wall deformity. Symmetrical expansion. LUNGS: Equal air entry with Wheezing, and rhonchi, loose congested cough CVS: Regular rate and rhythm, normal S1 and S2, no gallops, no murmurs, no rubs ABDOMEN: Soft, nontender. No hepatosplenomegaly, normal bowel sounds, no guarding or rigidity. EXTREMITIES: No clubbing, no edema, no cyanosis, 2+ pulses and upper and lower extremities. MUSCULOSKELETAL: Muscle strength and tone normal. SPINE: No scoliosis or deformity SKIN: No rashes CENTRAL NERVOUS SYSTEM: Alert and oriented -3. No focal deficits, tone is normal in all 4 extremities. PSYCHIATRIC: Alert and oriented -3. Appropriate affect. Intact judgment and insight. - Labs CBC & Chem 7: 01/04/20 06:24 01/04/20 06:24 Labs: Abnormal Lab Results - Last 24 Hours (Table) 01/03/20 01/03/20 01/04/20 Range/Units 16:58 20:55 06:24 RBC 3.29 L (3.80-5.40) m/uL Hgb 8.8 L (11.4-16.0) gm/dL Hct 27.6 L (34.0-46.0) % RDW 16.2 H (11.5-15.5) % Neutrophils # 8.1 H (1.3-7.7) k/uL Lymphocytes # 0.5 L (1.0-4.8) k/uL BUN (9.0-27.0) mg/dL Creatinine (0.6-1.5) mg/dL Est GFR (CKD-EPI)AfAm (60.0-200.0) Est GFR (CKD-EPI)NonAf (60.0-200.0) BUN/Creatinine Ratio (12.00-20.00) Ratio Glucose (70-110) mg/dL POC Glucose (mg/dL) 378 H 315 H (75-99) mg/dL Calcium (8.7-10.3) mg/dL 01/04/20 01/04/20 01/04/20 Range/Units 06:24 07:06 11:30 RBC (3.80-5.40) m/uL Hgb (11.4-16.0) gm/dL Hct (34.0-46.0) % RDW (11.5-15.5) % Neutrophils # (1.3-7.7) k/uL Lymphocytes # (1.0-4.8) k/uL BUN 51.0 H (9.0-27.0) mg/dL Creatinine 1.7 H (0.6-1.5) mg/dL Est GFR (CKD-EPI)AfAm 34.3 L (60.0-200.0) Est GFR (CKD-EPI)NonAf 29.6 L (60.0-200.0) BUN/Creatinine Ratio 30.00 H (12.00-20.00) Ratio Glucose 268 H (70-110) mg/dL POC Glucose (mg/dL) 274 H 452 H (75-99) mg/dL Calcium 7.8 L (8.7-10.3) mg/dL Microbiology - Last 24 Hours (Table) 01/02/20 14:30 Blood Culture - Preliminary Blood No Growth after 24 hours Assessment and Plan Plan: Assessment: #1. Acute exacerbation of severe persistent bronchial asthma/asthma, complicated by purulent tracheobronchitis without evidence of josé miguel pneumonia #2. Multiple hospitalizations, 8 this year, related to the above #3. History of paroxysmal atrial fibrillation #4. History of CHF #5. History of diabetes type II #6. The lifelong nonsmoker #7. GERD/reflux #8. Degenerative joint disease #9. Previous episode of pneumonia #10. Hypothyroidism #11. Acute kidney injury related to diuretic therapy #12. Chronic anemia #13. Chronic hypoxemic respiratory failure related to COPD/severe persistent bronchial asthma and chronic tracheobronchitis #14. Chronic interstitial changes present on the chest x-ray related to underlying pulmonary fibrosis/scarring from previous pulmonary infections #15. Kidney disease stage II Plan: Continue current antibiotics, continue IV steroids, diuretics per nephrology. Vital signs have been stable, patient has had multiple recurrent pulmonary infections, we'll send a immunoglobulin panel to see if patient qualifies for immunoglobulin infusions. Otherwise continue current medical treatment I performed a history & physical examination of the patient and discussed their management with my nurse practitioner, Maryjo Parisi. I reviewed the nurse practitioner's note and agree with the documented findings and plan of care. Lung sounds are positive for diffuse wheezes, and rhonchi. The findings and the impression was discussed with the patient. I attest to the documentation by the nurse practitioner. Time with Patient: Less than 30
[2020-01-04 16:32] LABS: Glucose,Whole Blood 330 mg/dL (75-99)
[2020-01-04] MEDS: LEVOFLOXACIN 750MG-D5W PMX 750 MG in DEXTROSE/WATER 1 150ML.BAG IVPB SCH (16:34)
--- NOTE | 2020-01-04 18:00 | P.PN ---
Subjective Progress Note Date: 01/04/20 72-year-old white female patient that so we'll known to our service and follows with Dr. Mendiola from the pulmonary clinic for history of COPD/asthma, recurrent pulmonary infections, with the sputum cultures in the bronchoscope was cultures positive for pseudomonal infections. Patient has had multiple h ospitalizations related to complications related to COPD. She came in on 01/02/2020 with complaints of worsening dyspnea, chest congestion, cough, and yellow phlegm production. Patient had recent upper respiratory infection. Her phlegm is yellow in color. Her Covid 19 PCR was negative, her chest x-ray on admission showed mild cardiomegaly with possible mild fluid overload/vascular congestion with some nodularity in the peripheral right midlung and along the left heart margin. Patient was started on IV Levaquin, IV steroids, nebulized bronchodilators, she is on diuretics. She is feeling better, although not quite back to baseline. Blood culture has shown no growth. Vital signs have been stable overnight Objective - Vital Signs Vital signs: Vital Signs Temp 97.8 F 01/04/20 07:00 Pulse 84 01/04/20 07:31 Resp 18 01/04/20 07:00 BP 126/73 01/04/20 07:00 Pulse Ox 97 01/04/20 07:00 Intake & Output 01/03/20 01/04/20 01/04/20 18:59 06:59 18:59 Other: Voiding Method Toilet Bedside Commode Bedside Commode # Voids 1 2 - Exam PHYSICAL EXAMINATION: GENERAL: The patient is alert and oriented x3, not in any acute distress. Well developed, well nourished. HEENT: Pupils are round and equally reacting to light. EOMI. No scleral icterus. No conjunctival pallor. Normocephalic, atraumatic. No pharyngeal erythema. No thyromegaly. CARDIOVASCULAR: S1 and S2 present. No murmurs, rubs, or gallops. PULMONARY: Chest is clear to auscultation, no wheezing or crackles. ABDOMEN: Soft, nontender, nondistended, normoactive bowel sounds. No palpable organomegaly. MUSCULOSKELETAL: No joint swelling or deformity. EXTREMITIES: No cyanosis, clubbing, or pedal edema. NEUROLOGICAL: Gross neurological examination did not reveal any focal deficits. SKIN: No rashes. - Labs CBC & Chem 7: 01/04/20 06:24 01/04/20 06:24 Labs: Abnormal Lab Results - Last 24 Hours (Table) 01/03/20 01/03/20 01/03/20 Range/Units 06:17 06:17 11:47 RBC (3.80-5.40) m/uL Hgb (11.4-16.0) gm/dL Hct (34.0-46.0) % RDW (11.5-15.5) % Neutrophils # (1.3-7.7) k/uL Lymphocytes # (1.0-4.8) k/uL PT 44.8 H (9.9-11.9) sec INR 4.56 H (0.90-1.11) BUN 37.0 H (9.0-27.0) mg/dL Creatinine (0.6-1.5) mg/dL Est GFR (CKD-EPI)AfAm 47.5 L (60.0-200.0) Est GFR (CKD-EPI)NonAf 41.0 L (60.0-200.0) BUN/Creatinine Ratio 28.46 H (12.00-20.00) Ratio Glucose 387 H (70-110) mg/dL POC Glucose (mg/dL) 396 H (75-99) mg/dL Calcium 8.0 L (8.7-10.3) mg/dL 01/03/20 01/03/20 01/04/20 Range/Units 16:58 20:55 06:24 RBC 3.29 L (3.80-5.40) m/uL Hgb 8.8 L (11.4-16.0) gm/dL Hct 27.6 L (34.0-46.0) % RDW 16.2 H (11.5-15.5) % Neutrophils # 8.1 H (1.3-7.7) k/uL Lymphocytes # 0.5 L (1.0-4.8) k/uL PT (9.9-11.9) sec INR (0.90-1.11) BUN (9.0-27.0) mg/dL Creatinine (0.6-1.5) mg/dL Est GFR (CKD-EPI)AfAm (60.0-200.0) Est GFR (CKD-EPI)NonAf (60.0-200.0) BUN/Creatinine Ratio (12.00-20.00) Ratio Glucose (70-110) mg/dL POC Glucose (mg/dL) 378 H 315 H (75-99) mg/dL Calcium (8.7-10.3) mg/dL 01/04/20 01/04/20 Range/Units 06:24 07:06 RBC (3.80-5.40) m/uL Hgb (11.4-16.0) gm/dL Hct (34.0-46.0) % RDW (11.5-15.5) % Neutrophils # (1.3-7.7) k/uL Lymphocytes # (1.0-4.8) k/uL PT (9.9-11.9) sec INR (0.90-1.11) BUN 51.0 H (9.0-27.0) mg/dL Creatinine 1.7 H (0.6-1.5) mg/dL Est GFR (CKD-EPI)AfAm 34.3 L (60.0-200.0) Est GFR (CKD-EPI)NonAf 29.6 L (60.0-200.0) BUN/Creatinine Ratio 30.00 H (12.00-20.00) Ratio Glucose 268 H (70-110) mg/dL POC Glucose (mg/dL) 274 H (75-99) mg/dL Calcium 7.8 L (8.7-10.3) mg/dL Microbiology - Last 24 Hours (Table) 01/02/20 14:30 Blood Culture - Preliminary Blood No Growth after 24 hours Assessment and Plan Assessment: 1. Acute exacerbation severe persistent asthma/purulent tracheobronchitis 2. Paroxysmal atrial fibrillation 3. History of CHF 4. Diabetes mellitus type 2 5. Hypothyroidism 6. Acute on chronic kidney disease; related to diuretic use; we will consult nephrology 7. Chronic hypoxemic respiratory failure; secondary to asthma exacerbation Continue current antibiotics, continue IV steroids, diuretics per nephrology. Vital signs have been stable, patient has had multiple recurrent pulmonary infections, we'll send a immunoglobulin panel to see if patient qualifies for immunoglobulin infusions. Otherwise continue current medical treatment
[2020-01-04 19:51] LABS: INR 4.13 (0.90-1.11); Prothrombin Time 40.2 sec (9.9-11.9)
[2020-01-04 21:36] LABS: Glucose,Whole Blood 344 mg/dL (75-99)
[2020-01-05] MEDS: methylPREDNISolone SOD SUCCI 125 MG/2 ML VIAL IV SCH ×3 (05:14→17:57)
[2020-01-05] MEDS: LEVOTHYROXINE 50 MCG TAB PO SCH (05:14)
[2020-01-05 06:49] LABS: Anisocytosis Slight; Basophils % (A) 0 %; Eosinophils % (A) 0 %; HCT 28.8 % (34.0-46.0); HGB 8.9 gm/dL (11.4-16.0); Hypochromasia Moderate; Lymphocytes # (A) 0.4 k/uL (1.0-4.8); Lymphocytes % (A) 5 %; MCHC 30.9 g/dL (31.0-37.0); MCV 84.2 fL (80.0-100.0); Mean Platelet Volume 7.3; Monocytes # (A) 0.3 k/uL (0-1.0); Monocytes % (A) 3 %; Neutrophils # (A) 7.8 k/uL (1.3-7.7); Neutrophils % (A) 91 %; Platelet Count 208 k/uL (150-450); RBC 3.41 m/uL (3.80-5.40); RDW 16.4 % (11.5-15.5); WBC 8.5 k/uL (3.8-10.6)
[2020-01-05 07:09] LABS: Glucose,Whole Blood 356 mg/dL (75-99)
[2020-01-05] MEDS: SYMBICORT 160-4.5 MCG INHALER INHALATION SCH ×2 (07:32→22:19)
[2020-01-05] MEDS: IPRATROPIUM-ALBUTEROL 3 ML NEB INHALATION SCH ×4 (07:32→22:19)
[2020-01-05] MEDS: DILTIAZEM CD 180 MG CAP.ER.24H PO SCH (08:27)
[2020-01-05] MEDS: CITALOPRAM HYDROBROMIDE 20 MG TAB PO SCH (08:27)
[2020-01-05] MEDS: ATORVASTATIN 10 MG TAB PO SCH (08:27)
[2020-01-05] MEDS: MULTIVITAMINS, THERA 1 EACH TAB PO SCH (08:27)
[2020-01-05] MEDS: POTASSIUM CHLORIDE ER 20 MEQ TAB.ER PO SCH (08:28)
[2020-01-05] MEDS: INSULIN ASPART (NovoLOG) 100 UNIT/ML VIAL SQ SCH ×4 (08:28→21:26)
[2020-01-05] MEDS: METOPROLOL TARTRATE 25 MG TAB PO SCH ×2 (08:28→21:26)
[2020-01-05] MEDS: LORATADINE 10 MG TAB PO SCH (08:28)
[2020-01-05] MEDS: PANTOPRAZOLE 40 MG TABLET PO SCH (08:28)
[2020-01-05] MEDS: FERROUS SULFATE 325 MG TAB PO SCH (08:28)
[2020-01-05] MEDS: INSULIN DETEMIR (LEVEMIR) 100 UNIT/ML SYR SQ SCH (08:28)
[2020-01-05] MEDS: ALPRAZolam 0.5 MG TAB PO SCH ×3 (08:28→21:26)
[2020-01-05] MEDS: LOSARTAN 50 MG TAB PO SCH (08:28)
--- NOTE | 2020-01-05 08:58 | P.NPCON ---
History of Present Illness - Reason for Consult Consult date: 01/05/20 acute renal failure - Chief Complaint Acute kidney injury - History of Present Illness This is a 74-year-old female seen in consultation because of acute kidney injury She was admitted with exacerbation of COPD. She had more cough yellow sputum and some symptoms of cold. Additionally she is been complaining of diarrhea which is frequent. Denies any dizziness. Heart: PCR was negative. She was given Lasix here in the hospital. Creatinine went up from 1.0- 12/10/2019 to 1.3 on 01/03/2020, and then further to 1.7 on 01/04/2020 here in the hospital. She is known with paroxysmal atrial fibrillation, an echocardiogram has shown moderate to severe mitral regurg and tricuspid regurg pulmonary hypertension with a pressure of 57 mm on echocardiogram Her blood sugars here have been somewhat high in the 300-400 range Past Medical History Past Medical History: Atrial Fibrillation, Asthma, Heart Failure, COPD, Diabetes Mellitus, GERD/Reflux, Hearing Disorder / Deafness, Hypertension, Osteoarthritis (OA), Pneumonia, Renal Disease, Thyroid Disorder Additional Past Medical History / Comment(s): HOLE IN RIGHT RETINA. hiatal hernia, anemia, chronic hypoxic respiratory failure, recent pulmonary infection with pseudomonas aeruginosa confirmed via bronchoscopy and the lavage, History of Any Multi-Drug Resistant Organisms: Other MDRO Past Surgical History: Cholecystectomy, Hysterectomy Additional Past Surgical History / Comment(s): CATARACT REMOVAL LEFT EYE. Past Anesthesia/Blood Transfusion Reactions: No Reported Reaction Past Psychological History: Anxiety, Panic Disorder Smoking Status: Never smoker Past Alcohol Use History: None Reported Past Drug Use History: None Reported - Past Family History Mother Family Medical History: No Reported History Medications and Allergies Home Medications Medication Instructions Recorded Confirmed Type ALPRAZolam [Xanax] 0.5 mg PO TID 01/16/19 01/02/20 History Alendronate Sodium [Fosamax] 70 mg PO FR 01/16/19 01/02/20 History Citalopram Hydrobromide 40 mg PO DAILY 01/16/19 01/02/20 History [Citalopram HBr] Diltiazem HCl [Diltiazem HCl 24Hr 180 mg PO DAILY 01/16/19 01/02/20 History ER] Ipratropium Nebulized [Atrovent 0.5 mg INHALATION RT-QID 01/16/19 01/02/20 History Nebulized 0.2 MG/ML] Levothyroxine Sodium [Synthroid] 50 mcg PO DAILY 01/16/19 01/02/20 History Losartan [Cozaar] 50 mg PO DAILY 01/16/19 01/02/20 History Lovastatin [Mevacor] 40 mg PO DAILY 01/16/19 01/02/20 History Zafirlukast [Accolate] 20 mg PO BID 01/16/19 01/02/20 History traMADol HCL 50 mg PO TID PRN 01/16/19 01/02/20 History Albuterol Nebulized [Ventolin 2.5 mg INHALATION RT-QID PRN 04/26/19 01/02/20 History Nebulized] Warfarin Sodium [Coumadin] 5 mg PO HS 06/28/19 01/02/20 History Albuterol Sulfate [Ventolin HFA] 1 - 2 puff INHALATION RT-Q6H PRN 08/07/19 01/02/20 History Loratadine [Claritin] 10 mg PO DAILY 08/07/19 01/02/20 History Ferrous Sulfate [Iron (65 MG 325 mg PO DAILY #30 tab 08/10/19 01/02/20 Rx Elemental)] Insulin Regular, Human [NovoLIN R] See Protocol SQ ACHS MDD 30 UNITS 09/11/19 01/02/20 History Budesonide-Formot 160-4.5 Mcg 2 puff INHALATION RT-BID #1 puff 09/15/19 01/02/20 Rx [Symbicort 160-4.5 Mcg Inhaler] Pantoprazole [Protonix] 40 mg PO BRIDGETTE-ZAY #30 tablet. 09/15/19 01/02/20 Rx Multivitamins, Thera [Multivitamin 1 tab PO DAILY 11/27/19 01/02/20 History (formulary)] Furosemide [Lasix] 40 mg PO BID #0 12/02/19 01/02/20 Rx Potassium Chloride [Klor-Con 20] 20 meq PO DAILY #0 12/02/19 01/02/20 Rx guaiFENesin [Mucinex] 600 mg PO Q12H PRN 12/10/19 01/02/20 History Insulin Glargine [Lantus] 70 unit SQ DAILY #1 10/24/20 11/11/20 Rx Metoprolol Tartrate [Lopressor] 25 mg PO BID #60 tab 12/15/19 01/02/20 Rx Allergies Allergy/AdvReac Type Severity Reaction Status Date / Time Iodinated Contrast Media Allergy Unknown, Verified 01/02/20 15:20 POOR RENAL FUNCTIONS latex AdvReac Rash/Hives Verified 01/02/20 15:20 Penicillins AdvReac Rash/Hives Verified 01/02/20 15:20 Physical Exam Vitals: Vital Signs Temp Pulse Pulse Resp BP Pulse Ox 01/05/20 07:46 70 01/05/20 07:32 70 01/05/20 02:39 97.6 F 68 20 125/60 99 01/05/20 00:00 20 01/04/20 20:52 72 01/04/20 20:39 71 99 01/04/20 20:00 70 20 01/04/20 19:15 97.5 F L 70 20 132/70 99 01/04/20 16:12 76 01/04/20 16:06 80 01/04/20 16:00 18 01/04/20 14:28 97.6 F 83 18 116/61 98 01/04/20 11:25 84 01/04/20 11:13 84 Intake and Output 01/04/20 01/05/20 01/05/20 22:59 06:59 14:59 Other: Voiding Method Bedside Commode Bedside Commode # Voids 1 2 On examination is awake alert oriented comfortable HEENT exam no JVP neck supple no facial asymmetry Lungs are significant for bilateral coarse crackles and expiratory wheezing fair air entry bilaterally Heart sounds are unremarkable she seems to be normal sinus rhythm currently Abdomen soft nontender no organomegaly ascites masses no suprapubic tenderness Extreme exam reveals no edema Neurologically awake alert oriented. Results - Lab Results Most recent lab results Calcium 7.8 mg/dL (8.7-10.3) L 01/04/20 06:24 01/05/20 06:22 01/04/20 06:24 Assessment and Plan Assessment: Impression 1. Acute kidney injury secondary to volume depletion most likely. This is likely secondary to diarrhea and upper respiratory infection. 2. COPD, exacerbation 3. History of paroxysmal atrial fibrillation currently in normal sinus rhythm based on EKG dated 01/02/2020. 4. CK D stage III secondary to nephrosclerosis Her baseline creatinine is 1 dated 12/10/2019. GFR is in the 50s 5. Uncontrolled diabetes 6. Echocardiogram shows tricuspid regurg mitral regurg of significance as well as pulmonary hypertension ejection fraction is 55-60%. 7. Anemia of chronic, rule out an deficiency Recommendation 1. Hold Lasix 2. Check orthostatic changes 3. IV fluids gently at lactated Ringer's at 60 an hour. 4. Monitor labs blood pressure and urine output
[2020-01-05] MEDS ORDERED: FUROSEMIDE 80 MG TAB PO SCH (09:00)
--- NOTE | 2020-01-05 09:55 | P.PN ---
Subjective Progress Note Date: 01/05/20 Principal diagnosis: Shortness of breath This is a very pleasant 74-year-old female patient with chronic hypoxic respiratory failure secondary to COPD and chronic diastolic congestive heart failure as well as multiple comorbid conditions including paroxysmal atrial fibrillation and valvular heart disease was admitted to the hospital with acute exacerbation of heart failure secondary to diastole dysfunction as well as COPD. Because her creatinine was elevated yesterday the Lasix was held. No kidney function test this morning. We'll obtain a BMP to check her creatinine. Clinically the patient stated that she is feeling better but she is not back to baseline. On examination she still have diminished breathing sounds bilaterally with bilateral expiratory wheezing. No symptoms of chest pain or chest discomfort. Pulmonary service is on the case. Objective - Vital Signs Vital signs: Vital Signs Temp 97.8 F 01/05/20 07:00 Pulse 70 01/05/20 07:46 Resp 20 01/05/20 07:00 BP 147/73 01/05/20 07:00 Pulse Ox 100 01/05/20 07:00 Intake & Output 01/04/20 01/05/20 01/05/20 18:59 06:59 18:59 Other: Voiding Method Bedside Commode # Voids 3 2 - Constitutional General appearance: Present: no acute distress - Respiratory Respiratory: bilateral: diminished, wheezing - Cardiovascular Heart sounds: normal: S1, S2 - Labs CBC & Chem 7: 01/05/20 06:22 01/04/20 06:24 Labs: Abnormal Lab Results - Last 24 Hours (Table) 01/04/20 01/04/20 01/04/20 Range/Units 06:24 06:24 11:30 RBC (3.80-5.40) m/uL Hgb (11.4-16.0) gm/dL Hct (34.0-46.0) % MCHC (31.0-37.0) g/dL RDW (11.5-15.5) % Neutrophils # (1.3-7.7) k/uL Lymphocytes # (1.0-4.8) k/uL PT 40.2 H (9.9-11.9) sec INR 4.13 H (0.90-1.11) BUN 51.0 H (9.0-27.0) mg/dL Creatinine 1.7 H (0.6-1.5) mg/dL Est GFR (CKD-EPI)AfAm 34.3 L (60.0-200.0) Est GFR (CKD-EPI)NonAf 29.6 L (60.0-200.0) BUN/Creatinine Ratio 30.00 H (12.00-20.00) Ratio Glucose 268 H (70-110) mg/dL POC Glucose (mg/dL) 452 H (75-99) mg/dL Calcium 7.8 L (8.7-10.3) mg/dL 01/04/20 01/04/20 01/05/20 Range/Units 16:30 21:34 06:22 RBC 3.41 L (3.80-5.40) m/uL Hgb 8.9 L (11.4-16.0) gm/dL Hct 28.8 L (34.0-46.0) % MCHC 30.9 L (31.0-37.0) g/dL RDW 16.4 H (11.5-15.5) % Neutrophils # 7.8 H (1.3-7.7) k/uL Lymphocytes # 0.4 L (1.0-4.8) k/uL PT (9.9-11.9) sec INR (0.90-1.11) BUN (9.0-27.0) mg/dL Creatinine (0.6-1.5) mg/dL Est GFR (CKD-EPI)AfAm (60.0-200.0) Est GFR (CKD-EPI)NonAf (60.0-200.0) BUN/Creatinine Ratio (12.00-20.00) Ratio Glucose (70-110) mg/dL POC Glucose (mg/dL) 330 H 344 H (75-99) mg/dL Calcium (8.7-10.3) mg/dL 01/05/20 Range/Units 07:00 RBC (3.80-5.40) m/uL Hgb (11.4-16.0) gm/dL Hct (34.0-46.0) % MCHC (31.0-37.0) g/dL RDW (11.5-15.5) % Neutrophils # (1.3-7.7) k/uL Lymphocytes # (1.0-4.8) k/uL PT (9.9-11.9) sec INR (0.90-1.11) BUN (9.0-27.0) mg/dL Creatinine (0.6-1.5) mg/dL Est GFR (CKD-EPI)AfAm (60.0-200.0) Est GFR (CKD-EPI)NonAf (60.0-200.0) BUN/Creatinine Ratio (12.00-20.00) Ratio Glucose (70-110) mg/dL POC Glucose (mg/dL) 356 H (75-99) mg/dL Calcium (8.7-10.3) mg/dL Microbiology - Last 24 Hours (Table) 01/02/20 14:30 Blood Culture - Preliminary Blood No Growth after 48 hours Assessment and Plan Assessment: Assessment #1 acute exacerbation of COPD #2 acute exacerbation of chronic diastolic heart failure #3 acute on chronic renal failure #4 paroxysmal atrial fibrillation #5 valvular heart disease #6 multiple comorbid conditions Plan #1 obtain a BMP to check the creatinine #2 further recommendation to follow that #3 continue the current medical regimen #4 continue weight daily #5 follow-up with the patient
[2020-01-05 09:57] LABS: BUN/Creat Ratio 38.42 Ratio (12.00-20.00); Calcium 7.6 mg/dL (8.7-10.3); Non-African American GFR(CKD) 25.9 (60.0-200.0)
[2020-01-05 10:06] LABS: INR 2.91 (0.90-1.11)
[2020-01-05 11:44] LABS: Glucose,Whole Blood 479 mg/dL (75-99)
[2020-01-05] MEDS: LACTATED RINGERS 1,000 ML IV SCH (12:30)
--- NOTE | 2020-01-05 16:40 | P.PN ---
Subjective Progress Note Date: 01/05/20 Principal diagnosis: Acute exacerbation of chronic bronchial asthma 72-year-old white female patient that so we'll known to our service and follows with Dr. Mendiola from the pulmonary clinic for history of COPD/asthma, recurrent pulmonary infections, with the sputum cultures in the bronchoscope was cultures positive for pseudomonal infections. Patient has had multiple hospi talizations related to complications related to COPD. She came in on 01/02/2020 with complaints of worsening dyspnea, chest congestion, cough, and yellow phlegm production. Patient had recent upper respiratory infection. Her phlegm is yellow in color. Her Covid 19 PCR was negative, her chest x-ray on admission showed mild cardiomegaly with possible mild fluid overload/vascular congestion with some nodularity in the peripheral right midlung and along the left heart margin. Patient was started on IV Levaquin, IV steroids, nebulized bronchodilators, she is on diuretics. She is feeling better, although not quite back to baseline. Blood culture has shown no growth. Vital signs have been s table overnight The patient is seen today 01/05/2020 in follow-up on the regular medical floor. She is currently sitting up in a chair at the bedside. Awake and alert in no acute distress. She continues to complain of shortness of breath with exertion. Cough congestion. He is maintaining O2 saturations up to 100% on 2 L/m per nasal cannula. She's afebrile. Hemodynamically stable. White count 8.5. Hemoglobin 8.9. INR 2.91. Sodium 132. Potassium 5.0. Creatinine 1.9. She remains on DuoNeb inhalations, Symbicort, Singulair, IV Solu-Medrol, Claritin, Mucinex, Levaquin. Objective - Vital Signs Vital signs: Vital Signs Temp 97.3 F L 01/05/20 15:00 Pulse 67 01/05/20 16:00 Resp 20 01/05/20 16:00 BP 128/75 01/05/20 15:00 Pulse Ox 100 01/05/20 15:00 Intake & Output 01/04/20 01/05/20 01/05/20 18:59 06:59 18:59 Intake Total 500 Balance 500 Intake: Intake, IV Titration 150 Amount Lactated Ringers 1,000 ml 150 @ 75 mls/hr IV .[id number] [facility] Rx#:[id number] Oral 350 Other: Voiding Method Bedside Commode Bedside Commode # Voids 3 2 3 - Exam GENERAL EXAM: Alert, pleasant 74-year-old female patient, on 2 L nasal cannula with O2 saturation 100% comfortable in no apparent distress. HEAD: Normocephalic. EYES: Normal reaction of pupils, equal size. NOSE: Clear with pink turbinates. THROAT: No erythema or exudates. NECK: No masses, no JVD. CHEST: No chest wall deformity. LUNGS: Equal air entry with faint end expiratory wheeze. CVS: S1 and S2 normal with no audible murmur, regular rhythm. ABDOMEN: No hepatosplenomegaly, normal bowel sounds, no guarding or rigidity. SPINE: No scoliosis or deformity SKIN: No rashes CENTRAL NERVOUS SYSTEM: No focal deficits, tone is normal in all 4 extremities. EXTREMITIES: There is no peripheral edema. No clubbing, no cyanosis. Peripheral pulses are intact. - Labs CBC & Chem 7: 01/05/20 06:22 01/05/20 06:22 Labs: Abnormal Lab Results - Last 24 Hours (Table) 01/02/20 01/04/20 01/04/20 Range/Units 13:38 06:24 21:34 RBC (3.80-5.40) m/uL Hgb (11.4-16.0) gm/dL Hct (34.0-46.0) % MCHC (31.0-37.0) g/dL RDW (11.5-15.5) % Neutrophils # (1.3-7.7) k/uL Lymphocytes # (1.0-4.8) k/uL PT 40.2 H (9.9-11.9) sec INR 4.13 H (0.90-1.11) Sodium (135-145) mmol/L BUN (9.0-27.0) mg/dL Creatinine (0.6-1.5) mg/dL Est GFR (CKD-EPI)AfAm (60.0-200.0) Est GFR (CKD-EPI)NonAf (60.0-200.0) BUN/Creatinine Ratio (12.00-20.00) Ratio Glucose (70-110) mg/dL POC Glucose (mg/dL) 344 H (75-99) mg/dL Calcium (8.7-10.3) mg/dL IgG3 116.0 H (11.0-85.0) mg/dL IgG4 209.0 H (3.0-175.0) mg/dL 01/05/20 01/05/20 01/05/20 Range/Units 06:22 06:22 06:22 RBC 3.41 L (3.80-5.40) m/uL Hgb 8.9 L (11.4-16.0) gm/dL Hct 28.8 L (34.0-46.0) % MCHC 30.9 L (31.0-37.0) g/dL RDW 16.4 H (11.5-15.5) % Neutrophils # 7.8 H (1.3-7.7) k/uL Lymphocytes # 0.4 L (1.0-4.8) k/uL PT 29.0 H (9.9-11.9) sec INR 2.91 H (0.90-1.11) Sodium 132 L (135-145) mmol/L BUN 73.0 H (9.0-27.0) mg/dL Creatinine 1.9 H (0.6-1.5) mg/dL Est GFR (CKD-EPI)AfAm 30.0 L (60.0-200.0) Est GFR (CKD-EPI)NonAf 25.9 L (60.0-200.0) BUN/Creatinine Ratio 38.42 H (12.00-20.00) Ratio Glucose 351 H (70-110) mg/dL POC Glucose (mg/dL) (75-99) mg/dL Calcium 7.6 L (8.7-10.3) mg/dL IgG3 (11.0-85.0) mg/dL IgG4 (3.0-175.0) mg/dL 01/05/20 01/05/20 Range/Units 07:00 11:42 RBC (3.80-5.40) m/uL Hgb (11.4-16.0) gm/dL Hct (34.0-46.0) % MCHC (31.0-37.0) g/dL RDW (11.5-15.5) % Neutrophils # (1.3-7.7) k/uL Lymphocytes # (1.0-4.8) k/uL PT (9.9-11.9) sec INR (0.90-1.11) Sodium (135-145) mmol/L BUN (9.0-27.0) mg/dL Creatinine (0.6-1.5) mg/dL Est GFR (CKD-EPI)AfAm (60.0-200.0) Est GFR (CKD-EPI)NonAf (60.0-200.0) BUN/Creatinine Ratio (12.00-20.00) Ratio Glucose (70-110) mg/dL POC Glucose (mg/dL) 356 H 479 H (75-99) mg/dL Calcium (8.7-10.3) mg/dL IgG3 (11.0-85.0) mg/dL IgG4 (3.0-175.0) mg/dL Microbiology - Last 24 Hours (Table) 01/02/20 14:30 Blood Culture - Preliminary Blood No Growth after 48 hours Assessment and Plan Assessment: 1. Acute exacerbation of severe persistent bronchial asthma/asthma, complicated by purulent tracheobronchitis without evidence of josé miguel pneumonia 2. Multiple hospitalizations, 8 this year, related to the above 3. History of paroxysmal atrial fibrillation 4. History of CHF 5. History of diabetes type II 6. The lifelong nonsmoker 7. GERD/reflux 8. Degenerative joint disease 9. Previous episode of pneumonia 10. Hypothyroidism 11. Acute kidney injury related to diuretic therapy 12. Chronic anemia 13. Chronic hypoxemic respiratory failure related to COPD/severe persistent bronchial asthma and chronic tracheobronchitis 14. Chronic interstitial changes present on the chest x-ray related to underlying pulmonary fibrosis/scarring from previous pulmonary infections 15. Kidney disease stage II Plan: The patient was seen and evaluated by Dr. Butler Continue with current treatment plan No evidence of immunosuppression based on immunoglobulins May need ECF placement based on her multiple readmissions Discharge planning in place I, the cosigning physician, performed a history & physical examination of the patient. Lungs sounds with faint end expiratory wheeze. Maintaining good O2 saturations in the 90s on 2 L/m per nasal cannula. I discussed the assessment and plan of care with my nurse practitioner, Su Arias. I attest to the above note as dictated by her.
[2020-01-05 17:10] LABS: Glucose,Whole Blood 390 mg/dL (75-99)
[2020-01-05 21:03] LABS: Glucose,Whole Blood 302 mg/dL (75-99)
[2020-01-05] MEDS: MONTELUKAST 10 MG TAB PO SCH (21:26)
[2020-01-06] MEDS: methylPREDNISolone SOD SUCCI 125 MG/2 ML VIAL IV SCH ×4 (00:58→17:04)
[2020-01-06] MEDS: LACTATED RINGERS 1,000 ML IV SCH ×2 (00:59→17:04)
[2020-01-06] MEDS: LEVOTHYROXINE 50 MCG TAB PO SCH (05:42)
[2020-01-06 07:01] LABS: Glucose,Whole Blood 159 mg/dL (75-99)
[2020-01-06] MEDS: INSULIN DETEMIR (LEVEMIR) 100 UNIT/ML SYR SQ SCH (07:16)
[2020-01-06] MEDS: PANTOPRAZOLE 40 MG TABLET PO SCH (07:16)
[2020-01-06] MEDS: INSULIN ASPART (NovoLOG) 100 UNIT/ML VIAL SQ SCH ×4 (07:16→21:06)
[2020-01-06] MEDS: FERROUS SULFATE 325 MG TAB PO SCH (07:17)
[2020-01-06] MEDS: DILTIAZEM CD 180 MG CAP.ER.24H PO SCH (07:17)
[2020-01-06] MEDS: METOPROLOL TARTRATE 25 MG TAB PO SCH ×2 (07:17→21:06)
[2020-01-06] MEDS: LOSARTAN 50 MG TAB PO SCH ×2 (07:18→07:19)
[2020-01-06] MEDS: ALPRAZolam 0.5 MG TAB PO SCH ×3 (07:18→21:06)
[2020-01-06] MEDS: MULTIVITAMINS, THERA 1 EACH TAB PO SCH (07:18)
[2020-01-06] MEDS: CITALOPRAM HYDROBROMIDE 20 MG TAB PO SCH (07:18)
[2020-01-06] MEDS: LORATADINE 10 MG TAB PO SCH (07:19)
[2020-01-06] MEDS: ATORVASTATIN 10 MG TAB PO SCH (07:19)
[2020-01-06] MEDS: POTASSIUM CHLORIDE ER 20 MEQ TAB.ER PO SCH (07:19)
--- NOTE | 2020-01-06 07:36 | P.PN ---
Subjective Progress Note Date: 01/06/20 Principal diagnosis: This is a 74-year-old female seen in consultation because of acute kidney injury She was admitted with exacerbation of COPD. She had more cough yellow sputum and some symptoms of cold. Additionally she is been complaining of diarrhea which is frequent. Denies any dizziness. She was given Lasix here in the hospital. Creatinine went up from 1.0- 12/10/2019 to 1.3 on 01/03/2020, and then further to 1.7 on 01/04/2020, and further to 1.9 as of yesterday. She is known with paroxysmal atrial fibrillation, an echocardiogram has shown moderate to severe mitral regurg and tricuspid regurg pulmonary hypertension with a pressure of 57 mm on echocardiogram As of this morning she can just have diarrhea last night she went to her 3 times. No abdominal pain no nausea vomiting appetite is fair. Her breathing is about the same she wants to go home. Her blood sugars here have been somewhat high in the 300-400 range Her vital signs are stable urine output is not well documented Objective - Vital Signs Vital signs: Vital Signs Temp 97.5 F L 01/06/20 02:00 Pulse 69 01/06/20 02:00 Resp 18 01/06/20 02:00 BP 147/77 01/06/20 02:00 Pulse Ox 93 L 01/05/20 19:57 Intake & Output 01/05/20 01/06/20 01/06/20 18:59 06:59 18:59 Intake Total 500 Balance 500 Intake: Intake, IV Titration 150 Amount Lactated Ringers 1,000 ml 150 @ 75 mls/hr IV .[id number] [facility] Rx#:[id number] Oral 350 Other: Voiding Method Bedside Commode Toilet # Voids 3 2 # Bowel Movements 1 On examination she is awake alert oriented slightly wheezing. HEENT exam no JVP neck is supple no facial asymmetry Lungs are clear to auscultation fair air entry bilaterally. There is mild end expiratory wheezing Heart sounds are unremarkable for any murmur rub gallop Abdomen soft nontender Extremity exam was no edema Neurologically awake alert oriented - Labs CBC & Chem 7: 01/05/20 06:22 01/05/20 06:22 Labs: Abnormal Lab Results - Last 24 Hours (Table) 01/02/20 01/05/20 01/05/20 Range/Units 13:38 06:22 06:22 PT 29.0 H (9.9-11.9) sec INR 2.91 H (0.90-1.11) Sodium 132 L (135-145) mmol/L BUN 73.0 H (9.0-27.0) mg/dL Creatinine 1.9 H (0.6-1.5) mg/dL Est GFR (CKD-EPI)AfAm 30.0 L (60.0-200.0) Est GFR (CKD-EPI)NonAf 25.9 L (60.0-200.0) BUN/Creatinine Ratio 38.42 H (12.00-20.00) Ratio Glucose 351 H (70-110) mg/dL POC Glucose (mg/dL) (75-99) mg/dL Calcium 7.6 L (8.7-10.3) mg/dL IgG3 116.0 H (11.0-85.0) mg/dL IgG4 209.0 H (3.0-175.0) mg/dL 01/05/20 01/05/20 01/05/20 Range/Units 11:42 17:08 21:01 PT (9.9-11.9) sec INR (0.90-1.11) Sodium (135-145) mmol/L BUN (9.0-27.0) mg/dL Creatinine (0.6-1.5) mg/dL Est GFR (CKD-EPI)AfAm (60.0-200.0) Est GFR (CKD-EPI)NonAf (60.0-200.0) BUN/Creatinine Ratio (12.00-20.00) Ratio Glucose (70-110) mg/dL POC Glucose (mg/dL) 479 H 390 H 302 H (75-99) mg/dL Calcium (8.7-10.3) mg/dL IgG3 (11.0-85.0) mg/dL IgG4 (3.0-175.0) mg/dL 01/06/20 Range/Units 06:59 PT (9.9-11.9) sec INR (0.90-1.11) Sodium (135-145) mmol/L BUN (9.0-27.0) mg/dL Creatinine (0.6-1.5) mg/dL Est GFR (CKD-EPI)AfAm (60.0-200.0) Est GFR (CKD-EPI)NonAf (60.0-200.0) BUN/Creatinine Ratio (12.00-20.00) Ratio Glucose (70-110) mg/dL POC Glucose (mg/dL) 159 H (75-99) mg/dL Calcium (8.7-10.3) mg/dL IgG3 (11.0-85.0) mg/dL IgG4 (3.0-175.0) mg/dL Microbiology - Last 24 Hours (Table) 01/02/20 14:30 Blood Culture - Preliminary Blood No Growth after 72 hours Assessment and Plan Assessment: Impression 1. Acute kidney injury secondary to volume depletion most likely. This is likely secondary to diarrhea and upper respiratory infection. 2. COPD, exacerbation, stable 3. History of paroxysmal atrial fibrillation currently in normal sinus rhythm based on EKG dated 01/02/2020. 4. CK D stage III secondary to nephrosclerosis Her baseline creatinine is 1 dated 12/10/2019. GFR is in the 50s 5. Uncontrolled diabetes 6. Echocardiogram shows tricuspid regurg mitral regurg of significance as well as pulmonary hypertension ejection fraction is 55-60%. 7. Anemia of chronic, rule out an deficiency. Hemoglobin is 8.9 stable Recommendation 1. Continue to Hold Lasix 2. Pending iron saturation 3. IV fluids gently at lactated Ringer's at 60 an hour. 4. Monitor labs blood pressure and urine output
[2020-01-06] MEDS: SYMBICORT 160-4.5 MCG INHALER INHALATION SCH ×2 (09:05→20:21)
[2020-01-06] MEDS: IPRATROPIUM-ALBUTEROL 3 ML NEB INHALATION SCH ×4 (09:05→20:21)
[2020-01-06 10:09] LABS: Anion Gap 9.9 mmol/L (4.00-12.00); BUN/Creat Ratio 39.47 Ratio (12.00-20.00); Carbon Dioxide 26.1 mmol/L (21.6-31.8); Non-African American GFR(CKD) 25.9 (60.0-200.0); Potassium 4.2 mmol/L (3.5-5.5)
[2020-01-06 11:21] LABS: Glucose,Whole Blood 201 mg/dL (75-99)
--- NOTE | 2020-01-06 12:04 | P.PN ---
Subjective Progress Note Date: 01/05/20 Principal diagnosis: Acute exacerbation of chronic bronchial asthma 72-year-old white female patient that so we'll known to our service and follows with Dr. Mendiola from the pulmonary clinic for history of COPD/asthma, recurrent pulmonary infections, with the sputum cultures in the bronchoscope was cultures positive for pseudomonal infections. Patient has had multiple hospitalizations related to complications related to COPD. She came in on 01/01 with complaints of worsening dyspnea, chest congestion, cough, and yellow phlegm production. Patient had recent upper respiratory infection. Her phlegm is yellow in color. Her Covid 19 PCR was negative, her chest x-ray on admission showed mild cardiomegaly with possible mild fluid overload/vascular congestion with some nodularity in the peripheral right midlung and along the left heart ma rgin. Patient was started on IV Levaquin, IV steroids, nebulized bronchodilators, she is on diuretics. She is feeling better, although not quite back to baseline. Blood culture has shown no growth. Vital signs have been stable overnight 01/05/2020 Patient is seen and evaluated in follow-up on the regular medical floor. She is currently sitting up in a chair at the bedside. Awake and alert in no acute distress; maintaining O2 saturations up to 100% on 2 L/m per nasal cannula. She's afebrile. Hemodynamically stable. White count 8.5. Hemoglobin 8.9. INR 2.91. Sodium 132. Potassium 5.0. Creatinine 1.9. She remains on DuoNeb inhalations, Symbicort, Singulair, IV Solu-Medrol, Claritin, Mucinex, Levaquin. Pulmonary on board and recommending to continue current treatment plan; immunoglobulins results reviewed and are stable; no evidence of immunosuppress ion; pulmonary recommending possible ECF placement based on multiple admission Objective - Vital Signs Vital signs: Vital Signs Temp 97.8 F 01/05/20 07:00 Pulse 72 01/05/20 11:26 Resp 20 01/05/20 08:00 BP 147/73 01/05/20 07:00 Pulse Ox 100 01/05/20 07:00 Intake & Output 01/04/20 01/05/20 01/05/20 18:59 06:59 18:59 Other: Voiding Method Bedside Commode Bedside Commode # Voids 3 2 - Exam PHYSICAL EXAMINATION: GENERAL: The patient is alert and oriented x3, not in any acute distress. Well developed, well nourished. HEENT: Pupils are round and equally reacting to light. EOMI. No scleral icterus. No conjunctival pallor. Normocephalic, atraumatic. No pharyngeal erythema. No thyromegaly. CARDIOVASCULAR: S1 and S2 present. No murmurs, rubs, or gallops. PULMONARY: Chest is clear to auscultation, no wheezing or crackles. ABDOMEN: Soft, nontender, nondistended, normoactive bowel sounds. No palpable organomegaly. MUSCULOSKELETAL: No joint swelling or deformity. EXTREMITIES: No cyanosis, clubbing, or pedal edema. NEUROLOGICAL: Gross neurological examination did not reveal any focal deficits. SKIN: No rashes. - Labs CBC & Chem 7: 01/05/20 06:22 01/06/20 06:16 Labs: Abnormal Lab Results - Last 24 Hours (Table) 01/02/20 01/04/20 01/04/20 Range/Units 13:38 06:24 16:30 RBC (3.80-5.40) m/uL Hgb (11.4-16.0) gm/dL Hct (34.0-46.0) % MCHC (31.0-37.0) g/dL RDW (11.5-15.5) % Neutrophils # (1.3-7.7) k/uL Lymphocytes # (1.0-4.8) k/uL PT 40.2 H (9.9-11.9) sec INR 4.13 H (0.90-1.11) Sodium (135-145) mmol/L BUN (9.0-27.0) mg/dL Creatinine (0.6-1.5) mg/dL Est GFR (CKD-EPI)AfAm (60.0-200.0) Est GFR (CKD-EPI)NonAf (60.0-200.0) BUN/Creatinine Ratio (12.00-20.00) Ratio Glucose (70-110) mg/dL POC Glucose (mg/dL) 330 H (75-99) mg/dL Calcium (8.7-10.3) mg/dL IgG3 116.0 H (11.0-85.0) mg/dL IgG4 209.0 H (3.0-175.0) mg/dL 01/04/20 01/05/20 01/05/20 Range/Units 21:34 06:22 06:22 RBC 3.41 L (3.80-5.40) m/uL Hgb 8.9 L (11.4-16.0) gm/dL Hct 28.8 L (34.0-46.0) % MCHC 30.9 L (31.0-37.0) g/dL RDW 16.4 H (11.5-15.5) % Neutrophils # 7.8 H (1.3-7.7) k/uL Lymphocytes # 0.4 L (1.0-4.8) k/uL PT 29.0 H (9.9-11.9) sec INR 2.91 H (0.90-1.11) Sodium (135-145) mmol/L BUN (9.0-27.0) mg/dL Creatinine (0.6-1.5) mg/dL Est GFR (CKD-EPI)AfAm (60.0-200.0) Est GFR (CKD-EPI)NonAf (60.0-200.0) BUN/Creatinine Ratio (12.00-20.00) Ratio Glucose (70-110) mg/dL POC Glucose (mg/dL) 344 H (75-99) mg/dL Calcium (8.7-10.3) mg/dL IgG3 (11.0-85.0) mg/dL IgG4 (3.0-175.0) mg/dL 01/05/20 01/05/20 01/05/20 Range/Units 06:22 07:00 11:42 RBC (3.80-5.40) m/uL Hgb (11.4-16.0) gm/dL Hct (34.0-46.0) % MCHC (31.0-37.0) g/dL RDW (11.5-15.5) % Neutrophils # (1.3-7.7) k/uL Lymphocytes # (1.0-4.8) k/uL PT (9.9-11.9) sec INR (0.90-1.11) Sodium 132 L (135-145) mmol/L BUN 73.0 H (9.0-27.0) mg/dL Creatinine 1.9 H (0.6-1.5) mg/dL Est GFR (CKD-EPI)AfAm 30.0 L (60.0-200.0) Est GFR (CKD-EPI)NonAf 25.9 L (60.0-200.0) BUN/Creatinine Ratio 38.42 H (12.00-20.00) Ratio Glucose 351 H (70-110) mg/dL POC Glucose (mg/dL) 356 H 479 H (75-99) mg/dL Calcium 7.6 L (8.7-10.3) mg/dL IgG3 (11.0-85.0) mg/dL IgG4 (3.0-175.0) mg/dL Microbiology - Last 24 Hours (Table) 01/02/20 14:30 Blood Culture - Preliminary Blood No Growth after 48 hours Assessment and Plan Assessment: 1. Acute exacerbation severe persistent asthma/purulent tracheobronchitis 2. Paroxysmal atrial fibrillation 3. History of CHF 4. Diabetes mellitus type 2 5. Hypothyroidism 6. Acute on chronic kidney disease; related to diuretic use; we will consult nephrology 7. Chronic hypoxemic respiratory failure; secondary to asthma exacerbation Continue current antibiotics, continue IV steroids, diuretics per nephrology. Vital signs have been stable, patient has had multiple recurrent pulmonary infections, we'll send a immunoglobulin panel to see if patient qualifies for immunoglobulin infusions. Otherwise continue current medical treatment
--- NOTE | 2020-01-06 12:14 | P.PN ---
Subjective Progress Note Date: 01/06/20 Principal diagnosis: Shortness of breath This is a very pleasant 74-year-old female patient with chronic hypoxic respiratory failure secondary to COPD and chronic diastolic congestive heart failure as well as multiple comorbid conditions including paroxysmal atrial fibrillation and valvular heart disease was admitted to the hospital with acute exacerbation of heart failure secondary to diastole dysfunction as well as COPD. The patient was seen today. She stated that she is feeling better indeterminable shortness of breath. The creatinine continues to be elevated. The Lasix is on hold. Nephrology services on the case as well. From the cardiac standpoint she seems to be stable. We'll follow-up with the patient on when necessary case Objective - Vital Signs Vital signs: Vital Signs Temp 97.5 F L 01/06/20 07:00 Pulse 74 01/06/20 09:16 Resp 22 01/06/20 07:00 BP 147/77 01/06/20 07:00 Pulse Ox 99 01/06/20 07:00 Intake & Output 01/05/20 01/06/20 01/06/20 18:59 06:59 18:59 Intake Total 500 Balance 500 Intake: Intake, IV Titration 150 Amount Lactated Ringers 1,000 ml 150 @ 75 mls/hr IV .[id number] [facility] Rx#:[id number] Oral 350 Other: Voiding Method Bedside Commode Toilet # Voids 3 2 # Bowel Movements 1 - Constitutional General appearance: Present: no acute distress - Respiratory Respiratory: bilateral: diminished - Cardiovascular Heart sounds: normal: S1, S2 - Labs CBC & Chem 7: 01/05/20 06:22 01/06/20 06:16 Labs: Abnormal Lab Results - Last 24 Hours (Table) 01/05/20 01/05/20 01/06/20 Range/Units 17:08 21:01 06:16 BUN 75.0 H (9.0-27.0) mg/dL Creatinine 1.9 H (0.6-1.5) mg/dL Est GFR (CKD-EPI)AfAm 30.0 L (60.0-200.0) Est GFR (CKD-EPI)NonAf 25.9 L (60.0-200.0) BUN/Creatinine Ratio 39.47 H (12.00-20.00) Ratio Glucose 140 H (70-110) mg/dL POC Glucose (mg/dL) 390 H 302 H (75-99) mg/dL Calcium 8.0 L (8.7-10.3) mg/dL 01/06/20 01/06/20 Range/Units 06:59 11:15 BUN (9.0-27.0) mg/dL Creatinine (0.6-1.5) mg/dL Est GFR (CKD-EPI)AfAm (60.0-200.0) Est GFR (CKD-EPI)NonAf (60.0-200.0) BUN/Creatinine Ratio (12.00-20.00) Ratio Glucose (70-110) mg/dL POC Glucose (mg/dL) 159 H 201 H (75-99) mg/dL Calcium (8.7-10.3) mg/dL Microbiology - Last 24 Hours (Table) 01/02/20 14:30 Blood Culture - Preliminary Blood No Growth after 72 hours Assessment and Plan Assessment: Assessment #1 acute exacerbation of COPD #2 acute exacerbation of chronic diastolic heart failure #3 acute on chronic renal failure #4 paroxysmal atrial fibrillation #5 valvular heart disease #6 multiple comorbid conditions Plan #1 continue the current medical regimen #2 follow-up with the patient on when necessary K
[2020-01-06] MEDS: LEVOFLOXACIN 750MG-D5W PMX 750 MG in DEXTROSE/WATER 1 150ML.BAG IVPB SCH (16:14)
[2020-01-06 16:32] LABS: Glucose,Whole Blood 294 mg/dL (75-99)
[2020-01-06] MEDS: LEVOFLOXACIN 500 MG TAB PO SCH (17:04)
--- NOTE | 2020-01-06 18:11 | P.PN ---
Subjective Progress Note Date: 01/06/20 Principal diagnosis: Acute exacerbation of chronic bronchial asthma 72-year-old white female patient that so we'll known to our service and follows with Dr. Mendiola from the pulmonary clinic for history of COPD/asthma, recurrent pulmonary infections, with the sputum cultures in the bronchoscope was cultures positive for pseudomonal infections. Patient has had multiple hospi talizations related to complications related to COPD. She came in on 01/02/2020 with complaints of worsening dyspnea, chest congestion, cough, and yellow phlegm production. Patient had recent upper respiratory infection. Her phlegm is yellow in color. Her Covid 19 PCR was negative, her chest x-ray on admission showed mild cardiomegaly with possible mild fluid overload/vascular congestion with some nodularity in the peripheral right midlung and along the left heart margin. Patient was started on IV Levaquin, IV steroids, nebulized bronchodilators, she is on diuretics. She is feeling better, although not quite back to baseline. Blood culture has shown no growth. Vital signs have been s table overnight The patient is seen today 01/05/2020 in follow-up on the regular medical floor. She is currently sitting up in a chair at the bedside. Awake and alert in no acute distress. She continues to complain of shortness of breath with exertion. Cough congestion. He is maintaining O2 saturations up to 100% on 2 L/m per nasal cannula. She's afebrile. Hemodynamically stable. White count 8.5. Hemoglobin 8.9. INR 2.91. Sodium 132. Potassium 5.0. Creatinine 1.9. She remains on DuoNeb inhalations, Symbicort, Singulair, IV Solu-Medrol, Claritin, Mucinex, Levaquin. The patient is seen again today 01/06/2020 in follow-up on the regular medical floor. She remains awake and alert in no acute distress. Sitting up in a chair at the bedside. Denies any worsening shortness of breath cough or congestion. Maintaining O2 saturations in the 90s on 2 L/m per nasal cannula. She's afebrile. Hemodynamically stable. Blood culture reveals no growth. Sodium 135. Potassium 4.2. BUN 75. Creatinine 1.9. Glucose 140. She remains on bronchodilators, IV Solu-Medrol, Singulair, Mucinex, Levaquin. Nephrology is on the case regarding her renal function. Objective - Vital Signs Vital signs: Vital Signs Temp 97.7 F 01/06/20 15:00 Pulse 78 01/06/20 16:23 Resp 22 01/06/20 15:00 BP 141/81 01/06/20 15:00 Pulse Ox 94 L 01/06/20 15:00 Intake & Output 01/05/20 01/06/20 01/06/20 18:59 06:59 18:59 Intake Total 500 240 Balance 500 240 Intake: Intake, IV Titration 150 Amount Lactated Ringers 1,000 ml 150 @ 75 mls/hr IV .[id number] JS Rx#:[id number] Oral 350 240 Other: Voiding Method Bedside Commode Toilet # Voids 3 2 2 # Bowel Movements 1 - Exam GENERAL EXAM: Alert, pleasant 74-year-old female patient, on 2 L nasal cannula with O2 saturation 94% comfortable in no apparent distress. HEAD: Normocephalic. EYES: Normal reaction of pupils, equal size. NOSE: Clear with pink turbinates. THROAT: No erythema or exudates. NECK: No masses, no JVD. CHEST: No chest wall deformity. LUNGS: Equal air entry with faint end expiratory wheeze. CVS: S1 and S2 normal with no audible murmur, regular rhythm. ABDOMEN: No hepatosplenomegaly, normal bowel sounds, no guarding or rigidity. SPINE: No scoliosis or deformity SKIN: No rashes CENTRAL NERVOUS SYSTEM: No focal deficits, tone is normal in all 4 extremities. EXTREMITIES: There is no peripheral edema. No clubbing, no cyanosis. Peripheral pulses are intact. - Labs CBC & Chem 7: 01/05/20 06:22 01/06/20 06:16 Labs: Abnormal Lab Results - Last 24 Hours (Table) 01/05/20 01/06/20 01/06/20 Range/Units 21:01 06:16 06:59 BUN 75.0 H (9.0-27.0) mg/dL Creatinine 1.9 H (0.6-1.5) mg/dL Est GFR (CKD-EPI)AfAm 30.0 L (60.0-200.0) Est GFR (CKD-EPI)NonAf 25.9 L (60.0-200.0) BUN/Creatinine Ratio 39.47 H (12.00-20.00) Ratio Glucose 140 H (70-110) mg/dL POC Glucose (mg/dL) 302 H 159 H (75-99) mg/dL Calcium 8.0 L (8.7-10.3) mg/dL 01/06/20 01/06/20 Range/Units 11:15 16:19 BUN (9.0-27.0) mg/dL Creatinine (0.6-1.5) mg/dL Est GFR (CKD-EPI)AfAm (60.0-200.0) Est GFR (CKD-EPI)NonAf (60.0-200.0) BUN/Creatinine Ratio (12.00-20.00) Ratio Glucose (70-110) mg/dL POC Glucose (mg/dL) 201 H 294 H (75-99) mg/dL Calcium (8.7-10.3) mg/dL Microbiology - Last 24 Hours (Table) 01/02/20 14:30 Blood Culture - Preliminary Blood No Growth after 96 hours Assessment and Plan Assessment: 1. Acute exacerbation of severe persistent bronchial asthma/asthma, complicated by purulent tracheobronchitis without evidence of josé miguel pneumonia 2. Multiple hospitalizations, 8 this year, related to the above 3. History of paroxysmal atrial fibrillation 4. History of CHF 5. History of diabetes type II 6. The lifelong nonsmoker 7. GERD/reflux 8. Degenerative joint disease 9. Previous episode of pneumonia 10. Hypothyroidism 11. Acute kidney injury related to diuretic therapy 12. Chronic anemia 13. Chronic hypoxemic respiratory failure related to COPD/severe persistent bronchial asthma and chronic tracheobronchitis 14. Chronic interstitial changes present on the chest x-ray related to underlying pulmonary fibrosis/scarring from previous pulmonary infections 15. Kidney disease stage II Plan: The patient was seen and evaluated by Dr. Butler Continue with current treatment plan Nephrology is on the case regarding her renal patient May need ECF placement based on her multiple readmissions Discharge planning in place I, the cosigning physician, performed a history & physical examination of the patient. Lungs sounds with faint end expiratory wheeze. Maintaining good O2 saturations in the 90s on 2 L/m per nasal cannula. I discussed the assessment and plan of care with my nurse practitioner, Su Arias. I attest to the above note as dictated by her.
--- NOTE | 2020-01-06 18:38 | P.PN ---
Subjective Progress Note Date: 01/06/20 Principal diagnosis: Acute exacerbation of chronic bronchial asthma 72-year-old white female patient that so we'll known to our service and follows with Dr. Mendiola from the pulmonary clinic for history of COPD/asthma, recurrent pulmonary infections, with the sputum cultures in the bronchoscope was cultures positive for pseudomonal infections. Patient has had multiple hospitalizations related to complications related to COPD. She came in on 01/01 with complaints of worsening dyspnea, chest congestion, cough, and yellow phlegm production. Patient had recent upper respiratory infection. Her phlegm is yellow in color. Her Covid 19 PCR was negative, her chest x-ray on admission showed mild cardiomegaly with possible mild fluid overload/vascular congestion with some nodularity in the peripheral right midlung and along the left heart ma rgin. Patient was started on IV Levaquin, IV steroids, nebulized bronchodilators, she is on diuretics. She is feeling better, although not quite back to baseline. Blood culture has shown no growth. Vital signs have been stable overnight 01/05/2020 Patient is seen and evaluated in follow-up on the regular medical floor. She is currently sitting up in a chair at the bedside. Awake and alert in no acute distress; maintaining O2 saturations up to 100% on 2 L/m per nasal cannula. She's afebrile. Hemodynamically stable. White count 8.5. Hemoglobin 8.9. INR 2.91. Sodium 132. Potassium 5.0. Creatinine 1.9. She remains on DuoNeb inhalations, Symbicort, Singulair, IV Solu-Medrol, Claritin, Mucinex, Levaquin. Pulmonary on board and recommending to continue current treatment plan; immunoglobulins results reviewed and are stable; no evidence of immunosuppress ion; pulmonary recommending possible ECF placement based on multiple admission 01/06/2020 Patient seen in follow-up on the regular medical floor. She remains awake and alert in no acute distress. Sitting up in a chair at the bedside. Denies any worsening shortness of breath cough or congestion. Maintaining O2 saturations in the 90s on 2 L/m per nasal cannula. She's afebrile. Hemodynamically stable. Blood culture reveals no growth. Sodium 135. Potassium 4.2. BUN 75. Creatinine 1.9. Glucose 140. She remains on bronchodilators, IV Solu-Medrol, Singulair, Mucinex, Levaquin. Nephrology is on the case regarding her renal function. Objective - Vital Signs Vital signs: Vital Signs Temp 97.5 F L 01/06/20 07:00 Pulse 74 01/06/20 09:16 Resp 22 01/06/20 07:00 BP 147/77 01/06/20 07:00 Pulse Ox 99 01/06/20 07:00 Intake & Output 01/05/20 01/06/20 01/06/20 18:59 06:59 18:59 Intake Total 500 Balance 500 Intake: Intake, IV Titration 150 Amount Lactated Ringers 1,000 ml 150 @ 75 mls/hr IV .[id number] JS Rx#:[id number] Oral 350 Other: Voiding Method Bedside Commode Toilet # Voids 3 2 # Bowel Movements 1 - Exam PHYSICAL EXAMINATION: GENERAL: The patient is alert and oriented x3, not in any acute distress. Well developed, well nourished. HEENT: Pupils are round and equally reacting to light. EOMI. No scleral icterus. No conjunctival pallor. Normocephalic, atraumatic. No pharyngeal erythema. No thyromegaly. CARDIOVASCULAR: S1 and S2 present. No murmurs, rubs, or gallops. PULMONARY: Chest is clear to auscultation, no wheezing or crackles. ABDOMEN: Soft, nontender, nondistended, normoactive bowel sounds. No palpable organomegaly. MUSCULOSKELETAL: No joint swelling or deformity. EXTREMITIES: No cyanosis, clubbing, or pedal edema. NEUROLOGICAL: Gross neurological examination did not reveal any focal deficits. SKIN: No rashes. - Labs CBC & Chem 7: 01/05/20 06:22 01/06/20 06:16 Labs: Abnormal Lab Results - Last 24 Hours (Table) 01/05/20 01/05/20 01/06/20 Range/Units 17:08 21:01 06:16 BUN 75.0 H (9.0-27.0) mg/dL Creatinine 1.9 H (0.6-1.5) mg/dL Est GFR (CKD-EPI)AfAm 30.0 L (60.0-200.0) Est GFR (CKD-EPI)NonAf 25.9 L (60.0-200.0) BUN/Creatinine Ratio 39.47 H (12.00-20.00) Ratio Glucose 140 H (70-110) mg/dL POC Glucose (mg/dL) 390 H 302 H (75-99) mg/dL Calcium 8.0 L (8.7-10.3) mg/dL 01/06/20 01/06/20 Range/Units 06:59 11:15 BUN (9.0-27.0) mg/dL Creatinine (0.6-1.5) mg/dL Est GFR (CKD-EPI)AfAm (60.0-200.0) Est GFR (CKD-EPI)NonAf (60.0-200.0) BUN/Creatinine Ratio (12.00-20.00) Ratio Glucose (70-110) mg/dL POC Glucose (mg/dL) 159 H 201 H (75-99) mg/dL Calcium (8.7-10.3) mg/dL Microbiology - Last 24 Hours (Table) 01/02/20 14:30 Blood Culture - Preliminary Blood No Growth after 72 hours Assessment and Plan Assessment: 1. Acute exacerbation severe persistent asthma/purulent tracheobronchitis 2. Paroxysmal atrial fibrillation 3. History of CHF 4. Diabetes mellitus type 2 5. Hypothyroidism 6. Acute on chronic kidney disease; related to diuretic use; we will consult nephrology 7. Chronic hypoxemic respiratory failure; secondary to asthma exacerbation Continue current antibiotics, continue IV steroids, diuretics per nephrology. Vital signs have been stable, patient has had multiple recurrent pulmonary infections, we'll send a immunoglobulin panel to see if patient qualifies for immunoglobulin infusions. Otherwise continue current medical treatment
[2020-01-06 20:50] LABS: Glucose,Whole Blood 293 mg/dL (75-99)
[2020-01-06] MEDS: MONTELUKAST 10 MG TAB PO SCH (21:06)
[2020-01-07] MEDS: methylPREDNISolone SOD SUCCI 125 MG/2 ML VIAL IV SCH ×4 (01:53→16:47)
[2020-01-07] MEDS: LACTATED RINGERS 1,000 ML IV SCH ×2 (01:54→15:13)
[2020-01-07 07:11] LABS: Glucose,Whole Blood 322 mg/dL (75-99)
[2020-01-07] MEDS: LEVOTHYROXINE 50 MCG TAB PO SCH (07:32)
[2020-01-07] MEDS: PANTOPRAZOLE 40 MG TABLET PO SCH (07:32)
[2020-01-07] MEDS: ALPRAZolam 0.5 MG TAB PO SCH ×3 (07:32→21:57)
[2020-01-07] MEDS: INSULIN ASPART (NovoLOG) 100 UNIT/ML VIAL SQ SCH ×4 (07:32→21:57)
[2020-01-07] MEDS: ATORVASTATIN 10 MG TAB PO SCH (07:32)
[2020-01-07] MEDS: CITALOPRAM HYDROBROMIDE 20 MG TAB PO SCH (07:32)
[2020-01-07] MEDS: FERROUS SULFATE 325 MG TAB PO SCH (07:33)
[2020-01-07] MEDS: INSULIN DETEMIR (LEVEMIR) 100 UNIT/ML SYR SQ SCH (07:33)
[2020-01-07] MEDS: LORATADINE 10 MG TAB PO SCH (07:33)
[2020-01-07] MEDS: DILTIAZEM CD 180 MG CAP.ER.24H PO SCH (07:33)
[2020-01-07] MEDS: MULTIVITAMINS, THERA 1 EACH TAB PO SCH (07:33)
[2020-01-07] MEDS: METOPROLOL TARTRATE 25 MG TAB PO SCH ×2 (07:33→21:57)
[2020-01-07] MEDS: POTASSIUM CHLORIDE ER 20 MEQ TAB.ER PO SCH (07:34)
[2020-01-07] MEDS: IPRATROPIUM-ALBUTEROL 3 ML NEB INHALATION SCH ×4 (08:36→20:28)
[2020-01-07] MEDS: SYMBICORT 160-4.5 MCG INHALER INHALATION SCH ×2 (08:36→20:28)
[2020-01-07 11:33] LABS: Glucose,Whole Blood 300 mg/dL (75-99)
--- NOTE | 2020-01-07 12:36 | P.PN ---
Subjective Patient is seen in follow-up for acute kidney injury. Creatinine 1.9 as of yesterday. Blood pressure fairly stable. Complaining of loose bowel movements. No vomiting. Oral intake slowly improving. Vital signs are stable. General: The patient appeared well nourished and normally developed. HEENT: Head exam is unremarkable. Neck is without jugular venous distension. LUNGS: Breath sounds decreased. HEART: Rate and Rhythm are regular. ABDOMEN: Soft, nontender. EXTREMITITES: No edema. Objective - Vital Signs Vital signs: Vital Signs Temp 97.5 F L 01/07/20 07:00 Pulse 78 01/07/20 08:47 Resp 19 01/07/20 07:00 BP 163/68 01/07/20 07:00 Pulse Ox 99 01/07/20 07:00 Intake & Output 01/06/20 01/07/20 01/07/20 18:59 06:59 18:59 Intake Total 240 Balance 240 Intake: Oral 240 Other: Voiding Method Toilet # Voids 2 1 - Labs CBC & Chem 7: 01/05/20 06:22 01/06/20 06:16 Labs: Abnormal Lab Results - Last 24 Hours (Table) 01/06/20 01/06/20 01/07/20 Range/Units 16:19 20:49 07:10 POC Glucose (mg/dL) 294 H 293 H 322 H (75-99) mg/dL 01/07/20 Range/Units 11:31 POC Glucose (mg/dL) 300 H (75-99) mg/dL Microbiology - Last 24 Hours (Table) 01/02/20 14:30 Blood Culture - Preliminary Blood No Growth after 96 hours Assessment and Plan Plan: Assessment: 1. Acute kidney injury secondary to ATN secondary to hypovolemia. Creatinine s table at 1.9 as of yesterday. 2. Chronic kidney disease stage III with baseline creatinine near 1-1.1. 3. Insulin-dependent diabetes mellitus. 4. Hypertension with chronic kidney disease. 5. Anemia of chronic kidney disease. Rule out iron deficiency. 6. History of A. fib. Plan: Stop potassium supplementation. Check iron studies. Maintain IV fluids. Check for C. diff if continues to have loose bowel movements. Morning labs pending. Continue to monitor renal function and urine output. Avoid alendronate to use his GFR less than 30. Check urinalysis. If renal function not improving, will use alternative to losartan for the time being.
[2020-01-07 12:44] LABS: African American GFR (CKD) 41 (>60 ml/min/1.73 sqM); Anion Gap 7 mmol/L; Blood Urea Nitrogen 65 mg/dL (7-17); Calcium 8.3 mg/dL (8.4-10.2); Carbon Dioxide 25 mmol/L (22-30); Chloride 102 mmol/L (98-107); Glucose 288 mg/dL (74-99); Non-African American GFR(CKD) 35 (>60 ml/min/1.73 sqM); Potassium 4.8 mmol/L (3.5-5.1); Sodium 134 mmol/L (137-145)
[2020-01-07] MEDS: LEVOFLOXACIN 500 MG TAB PO SCH (15:12)
[2020-01-07 16:36] LABS: Glucose,Whole Blood 365 mg/dL (75-99)
--- NOTE | 2020-01-07 17:07 | P.PN ---
Subjective Progress Note Date: 01/07/20 Principal diagnosis: Dyspnea, wheezing, cough 72-year-old white female patient that so we'll known to our service and follows with Dr. Mendiola from the pulmonary clinic for history of COPD/asthma, recurrent pulmonary infections, with the sputum cultures in the bronchoscope was cultures positive for pseudomonal infections. Patient has had multiple hospitalizations related to complications related to COPD. She came in on 01/02/2020 with complaints of worsening dyspnea, chest congestion, cough, and yellow phlegm production. Patient had recent upper respiratory infection. Her phlegm is yellow in color. Her Covid 19 PCR was negative, her chest x-ray on admission showed mild cardiomegaly with possible mild fluid overload/vascular congestion with some nodularity in the peripheral right midlung and along the left heart margin. Patient was started on IV Levaquin, IV steroids, nebulized bronchodilators, she is on diuretics. She is feeling better, although not quite back to baseline. Blood culture has shown no growth. Vital signs have been stable overnight On 01/07/2020 patient seen in follow-up until medical surgical floor. She is improving, still dyspneic with exertion, however it is improving, still bronchospastic, occasional cough, nonproductive, no chest pain, no hemoptysis, Levaquin, he denies bronchodilators, and steroids, slowly improving. COVID 19 was negative. She is on 2 L of oxygen a pulse ox of 90%, she remains on IV hydration currently at 60 ML per hour, nephrology is following, renal profile is improving. Objective - Vital Signs Vital signs: Vital Signs Temp 97.7 F 01/07/20 14:43 Pulse 73 01/07/20 14:43 Resp 18 01/07/20 14:43 BP 162/69 01/07/20 14:43 Pulse Ox 98 01/07/20 14:43 Intake & Output 01/06/20 01/07/20 01/07/20 18:59 06:59 18:59 Intake Total 240 Balance 240 Intake: Oral 240 Other: Voiding Method Toilet # Voids 2 1 3 - Exam GENERAL EXAM: Alert, very pleasant, 74-year-old white female, on 2 L of oxygen a pulse ox 98% comfortable in no apparent distress. HEAD: Normocephalic/atraumatic. EYES: Normal reaction of pupils, equal size. Conjunctiva pink, sclera white. NOSE: Clear with pink turbinates. THROAT: No erythema or exudates. NECK: No masses, no JVD, no thyroid enlargement, no adenopathy. CHEST: No chest wall deformity. Symmetrical expansion. LUNGS: Equal air entry with Wheezing, and rhonchi, loose congested cough CVS: Regular rate and rhythm, normal S1 and S2, no gallops, no murmurs, no rubs ABDOMEN: Soft, nontender. No hepatosplenomegaly, normal bowel sounds, no guarding or rigidity. EXTREMITIES: No clubbing, no edema, no cyanosis, 2+ pulses and upper and lower extremities. MUSCULOSKELETAL: Muscle strength and tone normal. SPINE: No scoliosis or deformity SKIN: No rashes CENTRAL NERVOUS SYSTEM: Alert and oriented -3. No focal deficits, tone is normal in all 4 extremities. PSYCHIATRIC: Alert and oriented -3. Appropriate affect. Intact judgment and insight. - Labs CBC & Chem 7: 01/05/20 06:22 01/07/20 12:06 Labs: Abnormal Lab Results - Last 24 Hours (Table) 01/06/20 01/07/20 01/07/20 Range/Units 20:49 07:10 11:31 Sodium (137-145) mmol/L BUN (7-17) mg/dL Creatinine (0.52-1.04) mg/dL Glucose (74-99) mg/dL POC Glucose (mg/dL) 293 H 322 H 300 H (75-99) mg/dL Calcium (8.4-10.2) mg/dL 01/07/20 01/07/20 Range/Units 12:06 16:34 Sodium 134 L (137-145) mmol/L BUN 65 H (7-17) mg/dL Creatinine 1.47 H (0.52-1.04) mg/dL Glucose 288 H (74-99) mg/dL POC Glucose (mg/dL) 365 H (75-99) mg/dL Calcium 8.3 L (8.4-10.2) mg/dL Microbiology - Last 24 Hours (Table) 01/02/20 14:30 Blood Culture - Preliminary Blood No Growth after 120 hours Assessment and Plan Plan: Assessment: #1. Acute exacerbation of severe persistent bronchial asthma/asthma, complicated by purulent tracheobronchitis without evidence of josé miguel pneumonia #2. Multiple hospitalizations, 8 this year, related to the above #3. History of paroxysmal atrial fibrillation #4. History of CHF #5. History of diabetes type II #6. The lifelong nonsmoker #7. GERD/reflux #8. Degenerative joint disease #9. Previous episode of pneumonia #10. Hypothyroidism #11. Acute kidney injury related to diuretic therapy #12. Chronic anemia #13. Chronic hypoxemic respiratory failure related to COPD/severe persistent bronchial asthma and chronic tracheobronchitis #14. Chronic interstitial changes present on the chest x-ray related to underlying pulmonary fibrosis/scarring from previous pulmonary infections #15. Kidney disease stage II Plan: Continue current medical treatment, continue nebulized bronchodilators, IV steroids, and antibiotics, renal profile is improving, patient has been afebrile, COVID 19 has been ruled out. Follow-up labs in the morning. We'll monitor for further improvement I performed a history & physical examination of the patient and discussed their management with my nurse practitioner, Maryjo Parisi. I reviewed the nurse practitioner's note and agree with the documented findings and plan of care. Lung sounds are positive for diffuse wheezes, and rhonchi. The findings and the impression was discussed with the patient. I attest to the documentation by the nurse practitioner. Time with Patient: Less than 30
[2020-01-07 18:46] LABS: % Iron Saturation 18.36 (12.00-45.00)
[2020-01-07 18:54] LABS: Ferritin 121.1 ng/mL (10.0-291.0)
[2020-01-07 21:27] LABS: Glucose,Whole Blood 318 mg/dL (75-99)
[2020-01-07] MEDS: MONTELUKAST 10 MG TAB PO SCH (21:57)
[2020-01-07] MEDS ORDERED: ONDANSETRON 4 MG/2 ML VIAL IVP PRN (23:19)
[2020-01-07] MEDS: methylPREDNISolone SOD SUCCI 40 MG/ML 1 ML VIAL IV SCH (23:21)
[2020-01-08] MEDS: methylPREDNISolone SOD SUCCI 40 MG/ML 1 ML VIAL IV SCH ×3 (05:42→17:15)
[2020-01-08] MEDS: LACTATED RINGERS 1,000 ML IV SCH (05:42)
[2020-01-08] MEDS: LEVOTHYROXINE 50 MCG TAB PO SCH (05:42)
[2020-01-08 07:06] LABS: Glucose,Whole Blood 225 mg/dL (75-99)
[2020-01-08] MEDS: INSULIN DETEMIR (LEVEMIR) 100 UNIT/ML SYR SQ SCH (07:19)
[2020-01-08] MEDS: INSULIN ASPART (NovoLOG) 100 UNIT/ML VIAL SQ SCH ×7 (07:20→20:40)
[2020-01-08] MEDS: DILTIAZEM CD 180 MG CAP.ER.24H PO SCH (07:20)
[2020-01-08] MEDS: ALPRAZolam 0.5 MG TAB PO SCH ×3 (07:20→21:59)
[2020-01-08] MEDS: CITALOPRAM HYDROBROMIDE 20 MG TAB PO SCH (07:20)
[2020-01-08] MEDS: LORATADINE 10 MG TAB PO SCH (07:21)
[2020-01-08] MEDS: FERROUS SULFATE 325 MG TAB PO SCH (07:21)
[2020-01-08] MEDS: PANTOPRAZOLE 40 MG TABLET PO SCH (07:21)
[2020-01-08] MEDS: MULTIVITAMINS, THERA 1 EACH TAB PO SCH (07:21)
[2020-01-08] MEDS: LOSARTAN 50 MG TAB PO SCH (07:21)
[2020-01-08] MEDS: ATORVASTATIN 10 MG TAB PO SCH (07:21)
[2020-01-08] MEDS: METOPROLOL TARTRATE 25 MG TAB PO SCH ×2 (07:21→20:40)
[2020-01-08] MEDS: SYMBICORT 160-4.5 MCG INHALER INHALATION SCH ×2 (08:39→19:56)
[2020-01-08] MEDS: IPRATROPIUM-ALBUTEROL 3 ML NEB INHALATION SCH ×4 (08:39→19:56)
[2020-01-08 11:30] LABS: Glucose,Whole Blood 136 mg/dL (75-99)
[2020-01-08 11:34] LABS: African American GFR (CKD) 47.5 (60.0-200.0); Anion Gap 9.2 mmol/L (4.00-12.00); BUN/Creat Ratio 42.31 Ratio (12.00-20.00); Calcium 8.5 mg/dL (8.7-10.3); Carbon Dioxide 24.8 mmol/L (21.6-31.8); Magnesium 2.2 mg/dL (1.5-2.4); Potassium 4.6 mmol/L (3.5-5.5)
--- NOTE | 2020-01-08 13:33 | P.PN ---
Subjective Patient is seen in follow-up for acute kidney injury. Renal function improving. Creatinine 1.3 today. Complaining of loose bowel movements but improved over the last few days. No vomiting. Oral intake is good. Vital signs are stable. General: The patient appeared well nourished and normally developed. HEENT: Head exam is unremarkable. Neck is without jugular venous distension. LUNGS: Breath sounds decreased. HEART: Rate and Rhythm are regular. ABDOMEN: Soft, nontender. EXTREMITITES: No edema. Objective - Vital Signs Vital signs: Vital Signs Temp 97.7 F 01/08/20 07:00 Pulse 88 01/08/20 12:18 Resp 18 01/08/20 12:18 BP 153/88 01/08/20 07:00 Pulse Ox 99 01/08/20 07:00 Intake & Output 01/07/20 01/08/20 01/08/20 18:59 06:59 18:59 Other: # Voids 3 1 # Bowel Movements 1 - Labs CBC & Chem 7: 01/05/20 06:22 01/08/20 07:19 Labs: Abnormal Lab Results - Last 24 Hours (Table) 01/07/20 01/07/20 01/08/20 Range/Units 16:34 21:25 07:05 BUN (9.0-27.0) mg/dL Est GFR (CKD-EPI)AfAm (60.0-200.0) Est GFR (CKD-EPI)NonAf (60.0-200.0) BUN/Creatinine Ratio (12.00-20.00) Ratio Glucose (70-110) mg/dL POC Glucose (mg/dL) 365 H 318 H 225 H (75-99) mg/dL Calcium (8.7-10.3) mg/dL 01/08/20 01/08/20 Range/Units 07:19 11:27 BUN 55.0 H (9.0-27.0) mg/dL Est GFR (CKD-EPI)AfAm 47.5 L (60.0-200.0) Est GFR (CKD-EPI)NonAf 41.0 L (60.0-200.0) BUN/Creatinine Ratio 42.31 H (12.00-20.00) Ratio Glucose 220 H (70-110) mg/dL POC Glucose (mg/dL) 136 H (75-99) mg/dL Calcium 8.5 L (8.7-10.3) mg/dL Microbiology - Last 24 Hours (Table) 01/02/20 14:30 Blood Culture - Preliminary Blood No Growth after 120 hours Assessment and Plan Plan: Assessment: 1. Acute kidney injury secondary to ATN secondary to hypovolemia. Improving. Creatinine down to 1.3 today. 2. Chronic kidney disease stage III with baseline creatinine near 1-1.1. 3. Insulin-dependent diabetes mellitus. 4. Hypertension with chronic kidney disease. Partially exacerbated by IV steroids and IV fluids. 5. Anemia of chronic kidney disease. Iron deficiency present. Plan: Hep-Lock IV fluids. Continue to monitor renal function and urine output. Follow-up urinalysis. Add low-dose hydralazine.
--- NOTE | 2020-01-08 15:01 | P.PN ---
Subjective Progress Note Date: 01/08/20 Principal diagnosis: Dyspnea, wheezing, cough 72-year-old white female patient that so we'll known to our service and follows with Dr. Mendiola from the pulmonary clinic for history of COPD/asthma, recurrent pulmonary infections, with the sputum cultures in the bronchoscope was cultures positive for pseudomonal infections. Patient has had multiple hospitalizations related to complications related to COPD. She came in on 01/02/2020 with complaints of worsening dyspnea, chest congestion, cough, and yellow phlegm production. Patient had recent upper respiratory infection. Her phlegm is yellow in color. Her Covid 19 PCR was negative, her chest x-ray on admission showed mild cardiomegaly with possible mild fluid overload/vascular congestion with some nodularity in the peripheral right midlung and along the left heart margin. Patient was started on IV Levaquin, IV steroids, nebulized bronchodilators, she is on diuretics. She is feeling better, although not quite back to baseline. Blood culture has shown no growth. Vital signs have been stable overnight On 01/07/2020 patient seen in follow-up until medical surgical floor. She is improving, still dyspneic with exertion, however it is improving, still bronchospastic, occasional cough, nonproductive, no chest pain, no hemoptysis, Levaquin, he denies bronchodilators, and steroids, slowly improving. COVID 19 was negative. She is on 2 L of oxygen a pulse ox of 90%, she remains on IV hydration currently at 60 ML per hour, nephrology is following, renal profile is improving. On 01/08/2020 patient seen in follow-up on medical surgical floor, she is improving, still has some scattered wheezing, however she is less panic was passed across dyspnea, occasional cough, no significant phlegm production, no, but the chest pain, but a signs have been stable overnight, she is on 2 L of oxygen her pulse ox is 99%, no fever or chills, vital signs have been stable, he states she is feeling better, breathing easier, blood culture has shown no growth, she has not been able to produce a sputum specimen for us. She has received gentle IV hydration over the last few days for her worsening renal function, and her renal function has improved, and the BUN is 55 and creatinine is 1.3 today. She is tolerating oral intake, nephrology is following. No other acute issues overnight Objective - Vital Signs Vital signs: Vital Signs Temp 97.7 F 01/08/20 07:00 Pulse 88 01/08/20 12:18 Resp 18 01/08/20 12:18 BP 153/88 01/08/20 07:00 Pulse Ox 99 01/08/20 07:00 Intake & Output 01/07/20 01/08/20 01/08/20 18:59 06:59 18:59 Other: # Voids 3 1 # Bowel Movements 1 - Exam GENERAL EXAM: Alert, very pleasant, 74-year-old white female, on 2 L of oxygen a pulse ox 98% comfortable in no apparent distress. HEAD: Normocephalic/atraumatic. EYES: Normal reaction of pupils, equal size. Conjunctiva pink, sclera white. NOSE: Clear with pink turbinates. THROAT: No erythema or exudates. NECK: No masses, no JVD, no thyroid enlargement, no adenopathy. CHEST: No chest wall deformity. Symmetrical expansion. LUNGS: Equal air entry with Wheezing, and rhonchi, loose congested cough CVS: Regular rate and rhythm, normal S1 and S2, no gallops, no murmurs, no rubs ABDOMEN: Soft, nontender. No hepatosplenomegaly, normal bowel sounds, no guarding or rigidity. EXTREMITIES: No clubbing, no edema, no cyanosis, 2+ pulses and upper and lower extremities. MUSCULOSKELETAL: Muscle strength and tone normal. SPINE: No scoliosis or deformity SKIN: No rashes CENTRAL NERVOUS SYSTEM: Alert and oriented -3. No focal deficits, tone is normal in all 4 extremities. PSYCHIATRIC: Alert and oriented -3. Appropriate affect. Intact judgment and insight. - Labs CBC & Chem 7: 01/05/20 06:22 01/08/20 07:19 Labs: Abnormal Lab Results - Last 24 Hours (Table) 01/07/20 01/07/20 01/08/20 Range/Units 16:34 21:25 07:05 BUN (9.0-27.0) mg/dL Est GFR (CKD-EPI)AfAm (60.0-200.0) Est GFR (CKD-EPI)NonAf (60.0-200.0) BUN/Creatinine Ratio (12.00-20.00) Ratio Glucose (70-110) mg/dL POC Glucose (mg/dL) 365 H 318 H 225 H (75-99) mg/dL Calcium (8.7-10.3) mg/dL 01/08/20 01/08/20 Range/Units 07:19 11:27 BUN 55.0 H (9.0-27.0) mg/dL Est GFR (CKD-EPI)AfAm 47.5 L (60.0-200.0) Est GFR (CKD-EPI)NonAf 41.0 L (60.0-200.0) BUN/Creatinine Ratio 42.31 H (12.00-20.00) Ratio Glucose 220 H (70-110) mg/dL POC Glucose (mg/dL) 136 H (75-99) mg/dL Calcium 8.5 L (8.7-10.3) mg/dL Microbiology - Last 24 Hours (Table) 01/02/20 14:30 Blood Culture - Preliminary Blood No Growth after 120 hours Assessment and Plan Plan: Assessment: #1. Acute exacerbation of severe persistent bronchial asthma/asthma, complicated by purulent tracheobronchitis without evidence of josé miguel pneumonia #2. Multiple hospitalizations, 8 this year, related to the above #3. History of paroxysmal atrial fibrillation #4. History of CHF #5. History of diabetes type II #6. The lifelong nonsmoker #7. GERD/reflux #8. Degenerative joint disease #9. Previous episode of pneumonia #10. Hypothyroidism #11. Acute kidney injury related to diuretic therapy, diuretics have been on hold, patient was gently rehydrated, and kidney function has improved #12. Chronic anemia #13. Chronic hypoxemic respiratory failure related to COPD/severe persistent bronchial asthma and chronic tracheobronchitis #14. Chronic interstitial changes present on the chest x-ray related to underlying pulmonary fibrosis/scarring from previous pulmonary infections #15. Kidney disease stage II Plan: No acute events overnight, vital signs are stable, kidney function continues to improve, breathing is improving, but she is stable for discharge home today on outpatient course of antibiotics, prednisone taper, and she can resume her maintenance inhalers in the form of Symbicort, Ventolin, she has nebulized treatments at home. Follow up with Dr. Mendiola in 7-10 days. I performed a history & physical examination of the patient and discussed their management with my nurse practitioner, Maryjo Parisi. I reviewed the nurse practitioner's note and agree with the documented findings and plan of care. Lung sounds are positive for diffuse wheezes, and rhonchi. The findings and the impression was discussed with the patient. I attest to the documentation by the nurse practitioner. Time with Patient: Less than 30
--- NOTE | 2020-01-08 15:12 | CDI ---
Documentation Clarification Form Date: 01/08/2020 02:54:57 PM From: Rebecca Amanda RN CCDS Admit Date: 01/02/2020 02:59:00 PM Patient Name: Xi Lloyd Visit Number: [id number] Discharge Date: ATTENTION: The Clinical Documentation Specialists (CDI) and [facility] Coding Staff appreciate your assistance in clarifying documentation. Please respond to the clarification below the line at the bottom and electronically sign. The CDI & [facility] Coding staff will review the response and follow-up if needed. Please note: Queries are made part of the Legal Health Record. If you have any questions, please contact the author of this message via ITS. Dr. Dalton The diagnosis Acute on Chronic Diastolic exacerbation was documented in the record but is not noted in subsequent documentation. History/Risk Factors: 74-year-old female presents to the ED with difficulty in breathing and fatigue. Medical History: Atrial Fibrillation, Heart Failure, DM and COPD Clinical Indicators: CXR 01/01: Mild cardiomegaly. Correlate to exclude fluid overload state and mild pulmonary vascular congestion. 01/01 BNP 852; 01/04 BNP 1120 01/03 Cardiology Consult: Acute exacerbation of chronic diastolic heart failure, EF 55-60%. Treatment: 01/01 Lopressor; 01/01 Lasix IV; 01/04 Lasix oral Please clarify if the Acute on Chronic Diastolic exacerbation was Present/active this admission Treated and resolved this admission Ruled out Other, please specify Clinically unable to determine (Last Query Form Revision: October 2018 Present/active this admission MTDD
[2020-01-08] MEDS: LEVOFLOXACIN 500 MG TAB PO SCH (15:45)
[2020-01-08] MEDS: hydrALAZINE HCL 25 MG TAB PO SCH ×2 (15:45→21:59)
[2020-01-08 17:06] LABS: Glucose,Whole Blood 173 mg/dL (75-99)
[2020-01-08 20:34] LABS: Glucose,Whole Blood 136 mg/dL (75-99)
[2020-01-08] MEDS: MONTELUKAST 10 MG TAB PO SCH (20:40)
--- NOTE | 2020-01-08 23:01 | P.PN ---
Subjective Progress Note Date: 01/07/20 Principal diagnosis: Acute exacerbation of chronic bronchial asthma 72-year-old white female patient that so we'll known to our service and follows with Dr. Mendiola from the pulmonary clinic for history of COPD/asthma, recurrent pulmonary infections, with the sputum cultures in the bronchoscope was cultures positive for pseudomonal infections. Patient has had multiple hospi talizations related to complications related to COPD. She came in on 01/02/2020 with complaints of worsening dyspnea, chest congestion, cough, and yellow phlegm production. Patient had recent upper respiratory infection. Her phlegm is yellow in color. Her Covid 19 PCR was negative, her chest x-ray on admission showed mild cardiomegaly with possible mild fluid overload/vascular congestion with some nodularity in the peripheral right midlung and along the left heart margin. Patient was started on IV Levaquin, IV steroids, nebulized bronchodilators, she is on diuretics. She is feeling better, although not quite back to baseline. Blood culture has shown no growth. Vital signs have been s table overnight 01/05/2020 Patient is seen and evaluated in follow-up on the regular medical floor. She is currently sitting up in a chair at the bedside. Awake and alert in no acute distress; maintaining O2 saturations up to 100% on 2 L/m per nasal cannula. She's afebrile. Hemodynamically stable. White count 8.5. Hemoglobin 8.9. INR 2.91. Sodium 132. Potassium 5.0. Creatinine 1.9. She remains on DuoNeb inhalations, Symbicort, Singulair, IV Solu-Medrol, Claritin, Mucinex, Levaquin. Pulmonary on board and recommending to continue current treatment plan; imm unoglobulins results reviewed and are stable; no evidence of immunosuppression; pulmonary recommending possible ECF placement based on multiple admission 01/06/2020 Patient seen in follow-up on the regular medical floor. She remains awake and alert in no acute distress. Sitting up in a chair at the bedside. Denies any worsening shortness of breath cough or congestion. Maintaining O2 saturations in the 90s on 2 L/m per nasal cannula. She's afebrile. Hemodynamically stable. Blood culture reveals no growth. Sodium 135. Potassium 4.2. BUN 75. Creatinine 1.9. Glucose 140. She remains on bronchodilators, IV Solu-Medrol, Singulair, Mucinex, Levaquin. Nephrology is on the case regarding her renal function. 01/07/2020 Patient is currently sitting in chair. Still having exertional dyspnea and shortness of breath. Does have cough without sputum production. Patient is being continued on Solu-Medrol, duo nebs and Levaquin. COVID-19 is negative. Creatinine level is improving to 1.43 remains gentle IV hydration nephrology and pulmonary is on board. Patient is currently on 2 L oxygen via nasal cannula. Patient has been afebrile. No nausea vomiting or abdominal pain or diarrhea. Current medications reviewed. Objective - Vital Signs Vital signs: Vital Signs Temp 97.7 F 01/07/20 14:43 Pulse 73 01/07/20 14:43 Resp 18 01/07/20 14:43 BP 162/69 01/07/20 14:43 Pulse Ox 98 01/07/20 14:43 Intake & Output 01/06/20 01/07/20 01/07/20 18:59 06:59 18:59 Intake Total 240 Balance 240 Intake: Oral 240 Other: Voiding Method Toilet # Voids 2 1 3 - Exam PHYSICAL EXAMINATION: GENERAL: The patient is alert and oriented x3, not in any acute distress. Well developed, well nourished. HEENT: Pupils are round and equally reacting to light. EOMI. No scleral icterus. No conjunctival pallor. Normocephalic, atraumatic. No pharyngeal erythema. No thyromegaly. CARDIOVASCULAR: S1 and S2 present. No murmurs, rubs, or gallops. PULMONARY: Bilateral expiratory wheezing and scattered rhonchi. Nonlabored breathing.. ABDOMEN: Soft, nontender, nondistended, normoactive bowel sounds. No palpable organomegaly. MUSCULOSKELETAL: No joint swelling or deformity. EXTREMITIES: No cyanosis, clubbing, or pedal edema. NEUROLOGICAL: Gross neurological examination did not reveal any focal deficits. SKIN: No rashes. - Labs CBC & Chem 7: 01/05/20 06:22 01/08/20 07:19 Labs: Abnormal Lab Results - Last 24 Hours (Table) 01/06/20 01/07/20 01/07/20 Range/Units 20:49 07:10 11:31 Sodium (137-145) mmol/L BUN (7-17) mg/dL Creatinine (0.52-1.04) mg/dL Glucose (74-99) mg/dL POC Glucose (mg/dL) 293 H 322 H 300 H (75-99) mg/dL Calcium (8.4-10.2) mg/dL 01/07/20 Range/Units 12:06 Sodium 134 L (137-145) mmol/L BUN 65 H (7-17) mg/dL Creatinine 1.47 H (0.52-1.04) mg/dL Glucose 288 H (74-99) mg/dL POC Glucose (mg/dL) (75-99) mg/dL Calcium 8.3 L (8.4-10.2) mg/dL Microbiology - Last 24 Hours (Table) 01/02/20 14:30 Blood Culture - Preliminary Blood No Growth after 96 hours Assessment and Plan Assessment: 1. Acute exacerbation severe persistent asthma/purulent tracheobronchitis 2. Paroxysmal atrial fibrillation 3. History of CHF 4. Diabetes mellitus type 2 5. Hypothyroidism 6. Acute on chronic kidney disease;possible ATN. related to diuretic use; improving nephrology 7. Chronic hypoxemic respiratory failure; secondary to asthma exacerbation Continue current antibiotics, continue IV steroids, diuretics on hold per nephrology. Vital signs have been stable, patient has had multiple recurrent pulmonary infections, immunoglobulin panel was sent WNL. Otherwise continue current medical treatment. f/u renal function. Time with Patient: Greater than 30
--- NOTE | 2020-01-08 23:03 | P.PN ---
Subjective Progress Note Date: 01/08/20 Principal diagnosis: Acute exacerbation of chronic bronchial asthma 72-year-old white female patient that so we'll known to our service and follows with Dr. Mendiola from the pulmonary clinic for history of COPD/asthma, recurrent pulmonary infections, with the sputum cultures in the bronchoscope was cultures positive for pseudomonal infections. Patient has had multiple hospi talizations related to complications related to COPD. She came in on 01/02/2020 with complaints of worsening dyspnea, chest congestion, cough, and yellow phlegm production. Patient had recent upper respiratory infection. Her phlegm is yellow in color. Her Covid 19 PCR was negative, her chest x-ray on admission showed mild cardiomegaly with possible mild fluid overload/vascular congestion with some nodularity in the peripheral right midlung and along the left heart margin. Patient was started on IV Levaquin, IV steroids, nebulized bronchodilators, she is on diuretics. She is feeling better, although not quite back to baseline. Blood culture has shown no growth. Vital signs have been s table overnight 01/05/2020 Patient is seen and evaluated in follow-up on the regular medical floor. She is currently sitting up in a chair at the bedside. Awake and alert in no acute distress; maintaining O2 saturations up to 100% on 2 L/m per nasal cannula. She's afebrile. Hemodynamically stable. White count 8.5. Hemoglobin 8.9. INR 2.91. Sodium 132. Potassium 5.0. Creatinine 1.9. She remains on DuoNeb inhalations, Symbicort, Singulair, IV Solu-Medrol, Claritin, Mucinex, Levaquin. Pulmonary on board and recommending to continue current treatment plan; imm unoglobulins results reviewed and are stable; no evidence of immunosuppression; pulmonary recommending possible ECF placement based on multiple admission 01/06/2020 Patient seen in follow-up on the regular medical floor. She remains awake and alert in no acute distress. Sitting up in a chair at the bedside. Denies any worsening shortness of breath cough or congestion. Maintaining O2 saturations in the 90s on 2 L/m per nasal cannula. She's afebrile. Hemodynamically stable. Blood culture reveals no growth. Sodium 135. Potassium 4.2. BUN 75. Creatinine 1.9. Glucose 140. She remains on bronchodilators, IV Solu-Medrol, Singulair, Mucinex, Levaquin. Nephrology is on the case regarding her renal function. 01/07/2020 Patient is currently sitting in chair. Still having exertional dyspnea and shortness of breath. Does have cough without sputum production. Patient is being continued on Solu-Medrol, duo nebs and Levaquin. COVID-19 is negative. Creatinine level is improving to 1.43 remains gentle IV hydration nephrology and pulmonary is on board. Patient is currently on 2 L oxygen via nasal cannula. Patient has been afebrile. No nausea vomiting or abdominal pain or diarrhea. 01/08/2020 Patient is currently lying in the bed still having scattered rhonchi and wheezing on examination. Patient states that she is feeling weak today. Currently on oxygen at 2 L via nasal cannula and saturating well. Cultures have been negative so far. Patient is being continued on IV steroids and duo nebs and antibiotics in the form of Levaquin. Renal function improved with creatinine level 1.3 today. Otherwise no acute overnight issues. Anticipate discharge in the next 24 hours with more clinical improvement. Current medications reviewed. Objective - Vital Signs Vital signs: Vital Signs Temp 97.7 F 01/08/20 19:48 Pulse 84 01/08/20 20:08 Resp 19 01/08/20 19:48 BP 152/78 01/08/20 19:48 Pulse Ox 97 01/08/20 15:00 Intake & Output 01/08/20 01/08/20 01/09/20 06:59 18:59 06:59 Other: # Voids 1 2 2 # Bowel Movements 1 - Exam PHYSICAL EXAMINATION: GENERAL: The patient is alert and oriented x3, not in any acute distress. Well developed, well nourished. HEENT: Pupils are round and equally reacting to light. EOMI. No scleral icterus. No conjunctival pallor. Normocephalic, atraumatic. No pharyngeal erythema. No thyromegaly. CARDIOVASCULAR: S1 and S2 present. No murmurs, rubs, or gallops. PULMONARY: Bilateral expiratory wheezing and scattered rhonchi. Nonlabored breathing.. ABDOMEN: Soft, nontender, nondistended, normoactive bowel sounds. No palpable organomegaly. MUSCULOSKELETAL: No joint swelling or deformity. EXTREMITIES: No cyanosis, clubbing, or pedal edema. NEUROLOGICAL: Gross neurological examination did not reveal any focal deficits. SKIN: No rashes. - Labs CBC & Chem 7: 01/05/20 06:22 01/08/20 07:19 Labs: Abnormal Lab Results - Last 24 Hours (Table) 01/07/20 01/08/20 01/08/20 Range/Units 21:25 07:05 07:19 BUN 55.0 H (9.0-27.0) mg/dL Est GFR (CKD-EPI)AfAm 47.5 L (60.0-200.0) Est GFR (CKD-EPI)NonAf 41.0 L (60.0-200.0) BUN/Creatinine Ratio 42.31 H (12.00-20.00) Ratio Glucose 220 H (70-110) mg/dL POC Glucose (mg/dL) 318 H 225 H (75-99) mg/dL Calcium 8.5 L (8.7-10.3) mg/dL 01/08/20 01/08/20 01/08/20 Range/Units 11:27 17:04 20:32 BUN (9.0-27.0) mg/dL Est GFR (CKD-EPI)AfAm (60.0-200.0) Est GFR (CKD-EPI)NonAf (60.0-200.0) BUN/Creatinine Ratio (12.00-20.00) Ratio Glucose (70-110) mg/dL POC Glucose (mg/dL) 136 H 173 H 136 H (75-99) mg/dL Calcium (8.7-10.3) mg/dL Microbiology - Last 24 Hours (Table) 01/02/20 14:30 Blood Culture - Final Blood No Growth after 144 hours Assessment and Plan Assessment: 1. Acute exacerbation severe persistent asthma/purulent tracheobronchitis 2. Paroxysmal atrial fibrillation 3. History of CHF 4. Diabetes mellitus type 2 5. Hypothyroidism 6. Acute on chronic kidney disease;possible ATN. related to diuretic use; i mproving nephrology 7. Chronic hypoxemic respiratory failure; secondary to asthma exacerbation Continue current antibiotics, continue IV steroids, diuretics on hold per nephrology. Vital signs have been stable, patient has had multiple recurrent pulmonary infections, immunoglobulin panel was sent WNL. Otherwise continue current medical treatment. f/u renal function. Time with Patient: Greater than 30
[2020-01-09] MEDS: methylPREDNISolone SOD SUCCI 40 MG/ML 1 ML VIAL IV SCH ×3 (00:41→11:21)
[2020-01-09] MEDS: LEVOTHYROXINE 50 MCG TAB PO SCH (05:53)
[2020-01-09 06:53] LABS: Glucose,Whole Blood 174 mg/dL (75-99)
[2020-01-09] MEDS: INSULIN ASPART (NovoLOG) 100 UNIT/ML VIAL SQ SCH ×4 (07:27→12:21)
[2020-01-09] MEDS: PANTOPRAZOLE 40 MG TABLET PO SCH (07:27)
[2020-01-09] MEDS: ALPRAZolam 0.5 MG TAB PO SCH ×2 (08:36→14:59)
[2020-01-09] MEDS: ATORVASTATIN 10 MG TAB PO SCH (08:37)
[2020-01-09] MEDS: CITALOPRAM HYDROBROMIDE 20 MG TAB PO SCH (08:37)
[2020-01-09] MEDS: DILTIAZEM CD 180 MG CAP.ER.24H PO SCH (08:38)
[2020-01-09] MEDS: FERROUS SULFATE 325 MG TAB PO SCH (08:38)
[2020-01-09] MEDS: LORATADINE 10 MG TAB PO SCH (08:39)
[2020-01-09] MEDS: hydrALAZINE HCL 25 MG TAB PO SCH (08:39)
[2020-01-09] MEDS: LOSARTAN 50 MG TAB PO SCH (08:40)
[2020-01-09] MEDS: METOPROLOL TARTRATE 25 MG TAB PO SCH (08:40)
[2020-01-09] MEDS: MULTIVITAMINS, THERA 1 EACH TAB PO SCH (08:41)
[2020-01-09] MEDS: INSULIN DETEMIR (LEVEMIR) 100 UNIT/ML SYR SQ SCH (08:50)
--- NOTE | 2020-01-09 09:02 | P.PN ---
Subjective Patient is seen in follow-up for acute kidney injury. Renal function improving. Creatinine 1.3 as of yesterday. No vomiting or diarrhea. Oral intake is good. No changes overnight. No active complaints. Vital signs are stable. General: The patient appeared well nourished and normally developed. HEENT: Head exam is unremarkable. Neck is without jugular venous distension. LUNGS: Breath sounds decreased. HEART: Rate and Rhythm are regular. ABDOMEN: Soft, nontender. EXTREMITITES: Trace edema. Objective - Vital Signs Vital signs: Vital Signs Temp 97.5 F L 01/09/20 07:31 Pulse 95 01/09/20 07:31 Resp 16 01/09/20 07:31 BP 131/80 01/09/20 07:31 Pulse Ox 100 01/09/20 07:31 Intake & Output 01/08/20 01/09/20 01/09/20 18:59 06:59 18:59 Other: Voiding Method Toilet # Voids 2 2 - Labs CBC & Chem 7: 01/05/20 06:22 01/08/20 07:19 Labs: Abnormal Lab Results - Last 24 Hours (Table) 01/08/20 01/08/20 01/08/20 Range/Units 07:19 11:27 17:04 BUN 55.0 H (9.0-27.0) mg/dL Est GFR (CKD-EPI)AfAm 47.5 L (60.0-200.0) Est GFR (CKD-EPI)NonAf 41.0 L (60.0-200.0) BUN/Creatinine Ratio 42.31 H (12.00-20.00) Ratio Glucose 220 H (70-110) mg/dL POC Glucose (mg/dL) 136 H 173 H (75-99) mg/dL Calcium 8.5 L (8.7-10.3) mg/dL 01/08/20 01/09/20 Range/Units 20:32 06:52 BUN (9.0-27.0) mg/dL Est GFR (CKD-EPI)AfAm (60.0-200.0) Est GFR (CKD-EPI)NonAf (60.0-200.0) BUN/Creatinine Ratio (12.00-20.00) Ratio Glucose (70-110) mg/dL POC Glucose (mg/dL) 136 H 174 H (75-99) mg/dL Calcium (8.7-10.3) mg/dL Microbiology - Last 24 Hours (Table) 01/02/20 14:30 Blood Culture - Final Blood No Growth after 144 hours Assessment and Plan Plan: Assessment: 1. Acute kidney injury secondary to ATN secondary to hypovolemia. Improving. Creatinine down to 1.3 as of yesterday. 2. Chronic kidney disease stage III with baseline creatinine near 1-1.1. 3. Insulin-dependent diabetes mellitus. 4. Hypertension with chronic kidney disease. Partially exacerbated by IV steroids and IV fluids. Controlled this morning. 5. Anemia of chronic kidney disease. Iron deficiency present. Plan: Off IV fluids. Continue to monitor renal function and urine output. Follow-up urinalysis. I will give her a dose of IV iron today.
[2020-01-09 09:19] LABS: African American GFR (CKD) 47.5 (60.0-200.0); Anion Gap 5.5 mmol/L (4.00-12.00); BUN/Creat Ratio 36.92 Ratio (12.00-20.00); Calcium 8.7 mg/dL (8.7-10.3); Carbon Dioxide 28.5 mmol/L (21.6-31.8)
[2020-01-09] MEDS: IPRATROPIUM-ALBUTEROL 3 ML NEB INHALATION SCH ×2 (09:29→12:11)
[2020-01-09] MEDS: SYMBICORT 160-4.5 MCG INHALER INHALATION SCH (09:29)
[2020-01-09] MEDS ORDERED: SODIUM FERRIC GLUCONAT-SUCROSE 125 MG in SODIUM CHLORIDE 0.9% 100 ML IVPB ONE (09:30)
[2020-01-09 11:31] LABS: Glucose,Whole Blood 189 mg/dL (75-99)
[2020-01-09] MEDS: LEVOFLOXACIN 500 MG TAB PO SCH (14:59)
[2020-01-09 15:07] LABS: Appearance,Urine Clear (Clear); Bilirubin,Urine Negative (Negative); Blood,Urine Negative (Negative); Color,Urine Yellow; Glucose,Urine (UA) Negative (Negative); Ketones,Urine Negative (Negative); Leukocyte Esterase,Urine Negative (Negative); Nitrite,Urine Negative (Negative); Protein,Urine 2+ (Negative); RBC,Urine 1 /hpf (0-5); Specific Gravity,Urine 1.019 (1.001-1.035); Squamous Epithelial Cell,Urine <1 /hpf (0-4); Urobilinogen,Urine <2.0 mg/dL (<2.0); WBC,Urine 1 /hpf (0-5)
[2020-01-09 15:19] VITALS: BP 146/72; PULSE 114; RESP 18; TEMP 97.8
[2020-01-09 15:22] VITALS: BMI 40.3
== END 2020-01-09 16:09 | disposition home health service (06) | DRG 291 ==
LOC: EC 12:42 → 6NMEDSUR 14:59 → 4SSUR 18:29
PROVIDERS: ADMIT Internal Medicine; ATTEND Internal Medicine
DX: I13.0 Hypertensive heart and chronic kidney disease with heart failure and stage 1 through stage 4 chronic kidney disease, or unspecified chronic kidney disease (principal); I50.33 Acute on chronic diastolic (congestive) heart failure; N17.0 Acute kidney failure with tubular necrosis; J44.1 Chronic obstructive pulmonary disease with (acute) exacerbation; J45.51 Severe persistent asthma with (acute) exacerbation; J96.11 Chronic respiratory failure with hypoxia; Z68.41 Body mass index [BMI] 40.0-44.9, adult; E87.1 Hypo-osmolality and hyponatremia; I48.0 Paroxysmal atrial fibrillation; I27.20 Pulmonary hypertension, unspecified; I08.1 Rheumatic disorders of both mitral and tricuspid valves; J84.10 Pulmonary fibrosis, unspecified; K21.9 Gastro-esophageal reflux disease without esophagitis; K44.9 Diaphragmatic hernia without obstruction or gangrene; M19.90 Unspecified osteoarthritis, unspecified site; N18.30 Chronic kidney disease, stage 3 unspecified; R79.1 Abnormal coagulation profile; T45.515A Adverse effect of anticoagulants, initial encounter; T50.2X5A Adverse effect of carbonic-anhydrase inhibitors, benzothiadiazides and other diuretics, initial encounter; Z20.828 Contact with and (suspected) exposure to other viral communicable diseases; D63.1 Anemia in chronic kidney disease; E03.9 Hypothyroidism, unspecified; E11.22 Type 2 diabetes mellitus with diabetic chronic kidney disease; E11.65 Type 2 diabetes mellitus with hyperglycemia; E61.1 Iron deficiency; E66.9 Obesity, unspecified; E78.5 Hyperlipidemia, unspecified; E86.1 Hypovolemia; F41.0 Panic disorder [episodic paroxysmal anxiety]; H91.90 Unspecified hearing loss, unspecified ear; Z79.01 Long term (current) use of anticoagulants; Z79.4 Long term (current) use of insulin; Z79.51 Long term (current) use of inhaled steroids; Z79.83 Long term (current) use of bisphosphonates; Z79.890 Hormone replacement therapy; Z79.899 Other long term (current) drug therapy; Z87.01 Personal history of pneumonia (recurrent); Z90.49 Acquired absence of other specified parts of digestive tract; Z90.710 Acquired absence of both cervix and uterus; Z98.42 Cataract extraction status, left eye; Z88.0 Allergy status to penicillin; Z91.041 Radiographic dye allergy status; Z91.040 Latex allergy status
CPT/HCPCS: 36415; 71046; 80048; 80053; 81001; 82728; 82784; 82785; 82787; 83540; 83550; 83605; 83735; 83880; 85025; 85610; 85730; 87040; 87635; 93005; 94640; 94760; 96365; 96366; 96375; 99285

== ENCOUNTER 2020-01-30 13:58 | Observation (INO) | payer MEDICARE ==
[2020-01-30] MEDS ORDERED: SODIUM CHLORIDE 0.9% 500 ML 500 ML IV STA (14:17)
[2020-01-30] MEDS ORDERED: DILTIAZEM DRIP BOLUS FROM BAG 1 MG SOLN IV ONE (14:41)
[2020-01-30] MEDS ORDERED: DILTIAZEM 125 MG in SODIUM CHLORIDE 0.9% 100 ML IV SCH (14:45)
[2020-01-30 15:03] LABS: Anisocytosis Slight; Basophils # (A) 0.1 k/uL (0-0.2); Basophils % (A) 1 %; Eosinophils % (A) 0 %; HCT 31.1 % (34.0-46.0); HGB 9.9 gm/dL (11.4-16.0); Hypochromasia Moderate; Lymphocytes # (A) 0.3 k/uL (1.0-4.8); Lymphocytes % (A) 6 %; MCH 27.1 pg (25.0-35.0); MCHC 31.8 g/dL (31.0-37.0); MCV 85.4 fL (80.0-100.0); Mean Platelet Volume 6.7; Monocytes # (A) 0.5 k/uL (0-1.0); Monocytes % (A) 8 %; Neutrophils # (A) 4.7 k/uL (1.3-7.7); Neutrophils % (A) 84 %; Platelet Count 227 k/uL (150-450); RBC 3.64 m/uL (3.80-5.40); RDW 17.1 % (11.5-15.5); WBC 5.7 k/uL (3.8-10.6)
--- NOTE | 2020-01-30 15:09 | ED ---
Chest Pain HPI - General Source: patient, RN notes reviewed Mode of arrival: wheelchair Limitations: no limitations <Thomas Hardin - Last Filed: 01/30/20 16:15> <Saray Lorenz - Last Filed: 02/04/20 19:04> - General Chief Complaint: Chest Pain Stated Complaint: Chest Pain Time Seen by Provider: 01/30/20 14:15 - History of Present Illness Initial Comments: 74-year-old female presents emergency Department with chief complaint of chest discomfort, shortness of breath. Patient states that she started having pain earlier this morning a left-sided or chest. She has no history of cardiac stents. She does have a history of A. fib on warfarin. Patient states that she felt weak gastritis did not feel well. She does have severe COPD oxygen dependent on 2 L at home. Patient had multiple recent admissions for COPD exacerbation. Denies any current nausea vomiting diarrhea constipation. Denies any change in her chronic leg swelling. (Thomas Hardin) - Related Data Home Medications Medication Instructions Recorded Confirmed ALPRAZolam [Xanax] 0.5 mg PO TID 01/16/19 01/30/20 Alendronate Sodium [Fosamax] 70 mg PO FR 01/16/19 01/30/20 Citalopram Hydrobromide 40 mg PO DAILY 01/16/19 01/30/20 [Citalopram HBr] Diltiazem HCl [Diltiazem HCl 24Hr 180 mg PO DAILY 01/16/19 01/30/20 ER] Ipratropium Nebulized [Atrovent 0.5 mg INHALATION RT-QID 01/16/19 01/30/20 Nebulized 0.2 MG/ML] Levothyroxine Sodium [Synthroid] 50 mcg PO DAILY 01/16/19 01/30/20 Losartan [Cozaar] 50 mg PO DAILY 01/16/19 01/30/20 Lovastatin [Mevacor] 40 mg PO DAILY 01/16/19 01/30/20 Zafirlukast [Accolate] 20 mg PO BID 01/16/19 01/30/20 traMADol HCL 50 mg PO TID PRN 01/16/19 01/30/20 Warfarin Sodium [Coumadin] 5 mg PO HS 06/28/19 01/30/20 Albuterol Sulfate [Ventolin HFA] 1 - 2 puff INHALATION RT-Q6H PRN 08/07/19 01/30/20 Loratadine [Claritin] 10 mg PO DAILY 08/07/19 01/30/20 Insulin Regular, Human [NovoLIN R] See Protocol SQ ACHS MDD 30 UNITS 09/11/19 01/30/20 Multivitamins, Thera [Multivitamin 1 tab PO DAILY 11/27/19 01/30/20 (formulary)] guaiFENesin [Mucinex] 600 mg PO Q12H PRN 12/10/19 01/30/20 Albuterol Nebulized [Ventolin 1.25 mg INHALATION RT-Q4H 01/30/20 01/30/20 Nebulized] Furosemide [Lasix] 40 mg PO BID 01/30/20 01/30/20 hydrALAZINE HCL [Apresoline] 25 mg PO TID PRN 01/30/20 01/30/20 methylPREDNISolone Dose Pack See Taper PO DAILY 01/30/20 01/30/20 [Medrol Dose Pack] Previous Rx's Medication Instructions Recorded Ferrous Sulfate [Iron (65 MG 325 mg PO DAILY #30 tab 08/10/19 Elemental)] Budesonide-Formot 160-4.5 Mcg 2 puff INHALATION RT-BID #1 puff 09/15/19 [Symbicort 160-4.5 Mcg Inhaler] Pantoprazole [Protonix] 40 mg PO AC-BRKFST #30 tablet. 09/15/19 Potassium Chloride [Klor-Con 20] 20 meq PO DAILY #0 12/02/19 Insulin Glargine [Lantus] 70 unit SQ DAILY #1 12/15/19 Metoprolol Tartrate [Lopressor] 25 mg PO BID #60 tab 12/15/19 Aspirin 81 mg PO DAILY 30 Days #30 chew 02/01/20 Allergies Allergy/AdvReac Type Severity Reaction Status Date / Time Iodinated Contrast Media Allergy Unknown, Verified 01/30/20 17:32 POOR RENAL FUNCTIONS latex AdvReac Rash/Hives Verified 01/30/20 17:32 Penicillins AdvReac Rash/Hives Verified 01/30/20 17:32 Review of Systems ROS Other: All systems not noted in ROS Statement are negative. <Thomas Hardin - Last Filed: 01/30/20 16:15> ROS Other: All systems not noted in ROS Statement are negative. <Saray Lorenz Homero - Last Filed: 02/04/20 19:04> ROS Statement: Those systems with pertinent positive or pertinent negative responses have been documented in the HPI. EKG Findings - EKG Comments: EKG Findings:: EKG performed at 14:23 A. fib RVR rate of 117 QRS 104 QT status QTC 348/485 left axis deviation and incomplete right bundle <Thomas Hardin - Last Filed: 01/30/20 16:15> Past Medical History Past Medical History: Atrial Fibrillation, Asthma, Heart Failure, COPD, Diabetes Mellitus, GERD/Reflux, Hearing Disorder / Deafness, Hypertension, Osteoarthritis (OA), Pneumonia, Renal Disease, Thyroid Disorder Additional Past Medical History / Comment(s): HOLE IN RIGHT RETINA. hiatal hernia, anemia, chronic hypoxic respiratory failure, recent pulmonary infection with pseudomonas aeruginosa confirmed via bronchoscopy and the lavage, History of Any Multi-Drug Resistant Organisms: Other MDRO Past Surgical History: Cholecystectomy, Hysterectomy Additional Past Surgical History / Comment(s): CATARACT REMOVAL LEFT EYE. Past Anesthesia/Blood Transfusion Reactions: No Reported Reaction Past Psychological History: Anxiety, Panic Disorder Smoking Status: Never smoker Past Alcohol Use History: None Reported Past Drug Use History: None Reported - Past Family History Mother Family Medical History: No Reported History <Thomas Hardin Radha - Last Filed: 01/30/20 16:15> General Exam Limitations: no limitations General appearance: alert, in no apparent distress Head exam: Present: atraumatic, normocephalic, normal inspection Eye exam: Present: normal appearance, PERRL, EOMI. Absent: scleral icterus, conjunctival injection, periorbital swelling ENT exam: Present: normal exam, mucous membranes moist Neck exam: Present: normal inspection. Absent: tenderness, meningismus, lymphadenopathy Respiratory exam: Present: wheezes, decreased breath sounds. Absent: normal lung sounds bilaterally, respiratory distress, rales, rhonchi, stridor Cardiovascular Exam: Present: tachycardia, irregular rhythm, normal heart sounds. Absent: regular rate, normal rhythm, systolic murmur, diastolic murmur, rubs, gallop, clicks GI/Abdominal exam: Present: soft, normal bowel sounds. Absent: distended, tenderness, guarding, rebound, rigid Neurological exam: Present: alert, oriented X3, reflexes normal. Absent: motor sensory deficit Skin exam: Present: warm, dry, intact, normal color. Absent: rash <Thomas Hardin - Last Filed: 01/30/20 16:15> Course Vital Signs 01/30/20 01/30/20 01/30/20 14:04 15:20 16:15 Temperature 99.0 F Pulse Rate 111 H 102 H 98 Respiratory 18 22 22 Rate Blood Pressure 185/62 139/76 173/76 O2 Sat by Pulse 99 98 99 Oximetry 01/30/20 01/30/20 01/30/20 16:45 19:08 20:09 Temperature Pulse Rate 95 90 90 Respiratory 20 18 Rate Blood Pressure 178/90 152/93 O2 Sat by Pulse 98 97 Oximetry 01/30/20 01/30/20 20:16 20:44 Temperature Pulse Rate 90 88 Respiratory 20 Rate Blood Pressure 149/71 O2 Sat by Pulse 100 Oximetry Chest Pain MDM <Thomas Hardin - Last Filed: 01/30/20 16:15> <Saray Lorenz - Last Filed: 02/04/20 19:04> - MDM 74-year-old [facility] A. fib, A. fib RVR improve heart rate, chest pain rule out, hyperglycemia. Patient's will have cardiology consult. (Thomas Hardin) I was available for consultation in the emergency department. The history and physical exam were done by the midlevel provider. I was consulted for this patients care. I reviewed the case with the midlevel provider and based on their presentation of the patient, I agree with the assessment, medical decision making and plan of care as documented. Chart was dictated using [facility] dictation software. Attempts were made to correct any dictation errors however some typographical errors may persist. Patient was seen during a national state of emergency due to the Covid-19 pandemic. (Saray Lorenz) Critical Care Time Critical Care Time: Yes Total Critical Care Time: 35 <Thomas Hardin - Last Filed: 01/30/20 16:15> Critical Care Time: Total 35 minutes of critical care time use initially notes reviewed past smoker she or in labs EKG chest x-ray patient was started on Cardizem for A. fib RVR. Blood pressure has improved, heart rate has improved. Patient has hyperglycemia, versus chest pain. Patient be kept for cardiac rule out. (Thomas Hardin) Disposition <Thomas Hardin - Last Filed: 01/30/20 16:15> <Saray Lorenz - Last Filed: 02/04/20 19:04> Clinical Impression: Chest pain, Atrial fibrillation with RVR, Hyperglycemia Disposition: ADMITTED IP TO THIS HOSP Condition: Fair
--- NOTE | 2020-01-30 15:18 | XR ---
EXAMINATION TYPE: XR chest 2V DATE OF EXAM: 01/30/2020 COMPARISON: Prior chest x-ray 01/02/2020 HISTORY: Chest pain TECHNIQUE: Frontal and lateral views of the chest are obtained. FINDINGS: There is no focal air space opacity, pleural effusion, or pneumothorax seen. The cardiac silhouette size is stable. Prominent lung volume could be indicative of underlying COPD. There are c oronary artery calcifications. Basilar interstitial changes are again seen. The osseous structures ar e intact. Nodularity described in prior report is not seen possibly due to differences in technique. IMPRESSION: No acute cardiopulmonary process. Stable cardiomegaly. Interstitial lung disease, and ad ditional findings above.
[2020-01-30 15:19] LABS: INR 2.2 (<1.2); Partial Thromboplastin Time 31.1 sec (22.0-30.0); Prothrombin Time 21.7 sec (9.0-12.0)
[2020-01-30 15:28] LABS: Albumin 3.7 g/dL (3.5-5.0); Calcium 8.8 mg/dL (8.4-10.2); Magnesium 1.9 mg/dL (1.6-2.3); Potassium 4.2 mmol/L (3.5-5.1); Total Bilirubin 0.4 mg/dL (0.2-1.3); Total Protein 7.1 g/dL (6.3-8.2)
[2020-01-30] MEDS ORDERED: INSULIN REGULAR 100 UNIT/ML VIAL IV ONE (16:12)
[2020-01-30] MEDS ORDERED: NITROGLYCERIN SL TABS 0.4 MG TAB SUBLINGUAL PRN (16:16)
[2020-01-30] MEDS ORDERED: ASPIRIN 81 MG PO STA (16:16)
[2020-01-30 16:36] LABS: Glucose,Whole Blood 359 mg/dL (75-99)
[2020-01-30] MEDS ORDERED: guaiFENesin 600 MG TABLET.ER PO PRN (18:49)
[2020-01-30] MEDS ORDERED: ALBUTEROL HFA INHALER INHALATION PRN (18:49)
[2020-01-30] MEDS ORDERED: hydrALAZINE HCL 25 MG TAB PO PRN (18:49)
[2020-01-30] MEDS: INSULIN ASPART (NovoLOG) 100 UNIT/ML VIAL SQ SCH ×2 (19:05→23:33)
[2020-01-30] MEDS: ALBUTEROL NEBULIZED 2.5 MG/3 ML INHALATION PRN (20:05)
[2020-01-30] MEDS: SYMBICORT 160-4.5 MCG INHALER INHALATION SCH ×2 (20:06→20:26)
[2020-01-30 21:37] LABS: Glucose,Whole Blood 356 mg/dL (75-99)
[2020-01-30] MEDS: METOPROLOL TARTRATE 25 MG TAB PO SCH (23:32)
[2020-01-30] MEDS: WARFARIN 5 MG TAB PO SCH (23:32)
[2020-01-30] MEDS ORDERED: ALPRAZolam 0.5 MG TAB PO STA (23:41)
[2020-01-31 04:27] LABS: Hemoglobin A1C 8.4 % (4.0-6.0)
[2020-01-31 06:09] LABS: Glucose,Whole Blood 265 mg/dL (75-99)
[2020-01-31] MEDS: INSULIN ASPART (NovoLOG) 100 UNIT/ML VIAL SQ SCH ×4 (06:56→20:25)
[2020-01-31] MEDS: INSULIN DETEMIR (LEVEMIR) 100 UNIT/ML SYR SQ SCH (06:56)
[2020-01-31] MEDS: PANTOPRAZOLE 40 MG TABLET PO SCH (06:56)
[2020-01-31] MEDS: LEVOTHYROXINE 50 MCG TAB PO SCH (06:56)
[2020-01-31 07:59] LABS: Anisocytosis Slight; Basophils % (A) 0 %; Eosinophils % (A) 1 %; HCT 29.8 % (34.0-46.0); Hypochromasia Marked; Lymphocytes # (A) 1.5 k/uL (1.0-4.8); Lymphocytes % (A) 23 %; MCH 26.3 pg (25.0-35.0); MCHC 30.1 g/dL (31.0-37.0); MCV 87.4 fL (80.0-100.0); Mean Platelet Volume 6.8; Monocytes # (A) 0.6 k/uL (0-1.0); Monocytes % (A) 8 %; Neutrophils # (A) 4.3 k/uL (1.3-7.7); Neutrophils % (A) 67 %; Platelet Count 253 k/uL (150-450); RBC 3.41 m/uL (3.80-5.40); RDW 17.4 % (11.5-15.5); WBC 6.5 k/uL (3.8-10.6)
[2020-01-31 08:05] LABS: INR 2.6 (<1.2); Prothrombin Time 25.4 sec (9.0-12.0)
[2020-01-31 08:14] LABS: Calcium 8.1 mg/dL (8.4-10.2); Potassium 3.9 mmol/L (3.5-5.1)
[2020-01-31] MEDS ORDERED: FUROSEMIDE 40 MG TAB PO SCH (09:00)
[2020-01-31] MEDS ORDERED: ASPIRIN 325 MG TAB PO SCH (09:00)
[2020-01-31] MEDS ORDERED: DILTIAZEM HCL 180 MG PO SCH (09:00)
[2020-01-31] MEDS: SYMBICORT 160-4.5 MCG INHALER INHALATION SCH ×2 (09:02→19:06)
[2020-01-31] MEDS: IPRATROPIUM-ALBUTEROL 3 ML NEB INHALATION PRN ×4 (09:13→19:06)
[2020-01-31 11:50] LABS: Glucose,Whole Blood 88 mg/dL (75-99)
[2020-01-31] MEDS: FERROUS SULFATE 325 MG TAB PO SCH (12:14)
[2020-01-31] MEDS: LOSARTAN 50 MG TAB PO SCH (12:14)
[2020-01-31] MEDS: CITALOPRAM HYDROBROMIDE 20 MG TAB PO SCH (12:15)
[2020-01-31] MEDS: POTASSIUM CHLORIDE ER 20 MEQ TAB.ER PO SCH (12:15)
[2020-01-31] MEDS ORDERED: traMADol 50 MG TAB PO PRN (13:45)
--- NOTE | 2020-01-31 13:54 | P.HPIM ---
History of Present Illness This is a pleasant 72-year-old female came in with compensative chest discomfort in the retrosternal area with no radiation. Patient does have cardiac history does have history of atrial fibrillation is on Coumadin therapy and Coumadin. Patient also complaining of pedal edema. Patient denied any nausea vomiting. Patient chest pain is being addressed by cardiology. Has minimally elevated troponin of 0.07 and 0.091. Patient does have history of COPD uses 2-3 does of oxygen at home. Patient is found to have highly elevated blood sugars and 500s and a pseudohyponatremia from hyperglycemia. Patient was on the oral steroids which are being Deployed which is responsible for her elevated blood sugars. She was comparing of cough without any significant sputum production. Review of Systems REVIEW OF SYSTEMS: CONSTITUTIONAL: No fever, no malaise, no fatigue. HEENT: No recent visual problems or hearing problems. Denied any sore throat. CARDIOVASCULAR: No chest pain, orthopnea, PND, no palpitations, no syncope. PULMONARY: No shortness of breath, no cough, no hemoptysis. GASTROINTESTINAL: No diarrhea, no nausea, no vomiting, no abdominal pain. NEUROLOGICAL: No headaches, no weakness, no numbness. HEMATOLOGICAL: Denies any bleeding or petechiae. GENITOURINARY: Denies any burning micturition, frequency, or urgency. MUSCULOSKELETAL/RHEUMATOLOGICAL: Denies any joint pain, swelling, or any muscle pain. ENDOCRINE: Denies any polyuria or polydipsia. The rest of the 14-point review of systems is negative. Past Medical History Past Medical History: Atrial Fibrillation, Asthma, Heart Failure, COPD, Diabetes Mellitus, GERD/Reflux, Hearing Disorder / Deafness, Hypertension, Osteoarthritis (OA), Pneumonia, Renal Disease, Thyroid Disorder Additional Past Medical History / Comment(s): HOLE IN RIGHT RETINA. hiatal hernia, anemia, chronic hypoxic respiratory failure, recent pulmonary infection with pseudomonas aeruginosa confirmed via bronchoscopy and the lavage, History of Any Multi-Drug Resistant Organisms: Other MDRO Past Surgical History: Cholecystectomy, Hysterectomy Additional Past Surgical History / Comment(s): CATARACT REMOVAL LEFT EYE. Past Anesthesia/Blood Transfusion Reactions: No Reported Reaction Past Psychological History: Anxiety, Panic Disorder Smoking Status: Never smoker Past Alcohol Use History: None Reported Past Drug Use History: None Reported - Past Family History Mother Family Medical History: No Reported History Medications and Allergies Home Medications Medication Instructions Recorded Confirmed Type ALPRAZolam [Xanax] 0.5 mg PO TID 01/16/19 01/30/20 History Alendronate Sodium [Fosamax] 70 mg PO FR 01/16/19 01/30/20 History Citalopram Hydrobromide 40 mg PO DAILY 01/16/19 01/30/20 History [Citalopram HBr] Diltiazem HCl [Diltiazem HCl 24Hr 180 mg PO DAILY 01/16/19 01/30/20 History ER] Ipratropium Nebulized [Atrovent 0.5 mg INHALATION RT-QID 01/16/19 01/30/20 History Nebulized 0.2 MG/ML] Levothyroxine Sodium [Synthroid] 50 mcg PO DAILY 01/16/19 01/30/20 History Losartan [Cozaar] 50 mg PO DAILY 01/16/19 01/30/20 History Lovastatin [Mevacor] 40 mg PO DAILY 01/16/19 01/30/20 History Zafirlukast [Accolate] 20 mg PO BID 01/16/19 01/30/20 History traMADol HCL 50 mg PO TID PRN 01/16/19 01/30/20 History Warfarin Sodium [Coumadin] 5 mg PO HS 06/28/19 01/30/20 History Albuterol Sulfate [Ventolin HFA] 1 - 2 puff INHALATION RT-Q6H PRN 08/07/19 01/30/20 History Loratadine [Claritin] 10 mg PO DAILY 08/07/19 01/30/20 History Ferrous Sulfate [Iron (65 MG 325 mg PO DAILY #30 tab 08/10/19 01/30/20 Rx Elemental)] Insulin Regular, Human [NovoLIN R] See Protocol SQ ACHS MDD 30 UNITS 09/11/19 01/30/20 History Budesonide-Formot 160-4.5 Mcg 2 puff INHALATION RT-BID #1 puff 09/15/19 01/30/20 Rx [Symbicort 160-4.5 Mcg Inhaler] Pantoprazole [Protonix] 40 mg PO AC-BRKFST #30 tablet. 09/15/19 01/30/20 Rx Multivitamins, Thera [Multivitamin 1 tab PO DAILY 11/27/19 01/30/20 History (formulary)] Potassium Chloride [Klor-Con 20] 20 meq PO DAILY #0 12/02/19 01/30/20 Rx guaiFENesin [Mucinex] 600 mg PO Q12H PRN 12/10/19 01/30/20 History Insulin Glargine [Lantus] 70 unit SQ DAILY #1 12/15/19 01/30/20 Rx Metoprolol Tartrate [Lopressor] 25 mg PO BID #60 tab 12/15/19 01/30/20 Rx Albuterol Nebulized [Ventolin 1.25 mg INHALATION RT-Q4H 01/30/20 01/30/20 History Nebulized] Furosemide [Lasix] 40 mg PO BID 01/30/20 01/30/20 History hydrALAZINE HCL [Apresoline] 25 mg PO TID PRN 01/30/20 01/30/20 History methylPREDNISolone Dose Pack See Taper PO DAILY 01/30/20 01/30/20 History [Medrol Dose Pack] Allergies Allergy/AdvReac Type Severity Reaction Status Date / Time Iodinated Contrast Media Allergy Unknown, Verified 01/30/20 17:32 POOR RENAL FUNCTIONS latex AdvReac Rash/Hives Verified 01/30/20 17:32 Penicillins AdvReac Rash/Hives Verified 01/30/20 17:32 Physical Exam Vitals: Vital Signs Temp Pulse Pulse Resp BP BP Pulse Ox 01/31/20 12:00 96.1 F L 72 16 153/67 98 01/31/20 11:31 77 01/31/20 11:21 76 01/31/20 09:25 74 01/31/20 09:13 72 01/31/20 08:00 96.4 F L 72 16 169/69 100 01/31/20 04:00 97.7 F 80 20 138/86 99 01/31/20 02:00 95 20 01/31/20 00:00 98.0 F 95 20 154/75 100 01/30/20 21:45 97.6 F 93 18 155/72 99 01/30/20 21:25 93 20 01/30/20 20:44 88 20 149/71 100 01/30/20 20:16 90 01/30/20 20:09 90 01/30/20 19:08 90 18 152/93 97 01/30/20 16:45 95 20 178/90 98 01/30/20 16:15 98 22 173/76 99 01/30/20 15:20 102 H 22 139/76 98 01/30/20 14:04 99.0 F 111 H 18 185/62 99 Intake and Output 01/30/20 01/31/20 01/31/20 22:59 06:59 14:59 Intake Total 240 Output Total 400 Balance -160 Intake: Oral 240 Output: Urine 400 Other: Voiding Method Bedside Commode Bedside Commode Bedside Commode # Voids 1 # Bowel Movements 1 Weight 106.594 kg 109.9 kg PHYSICAL EXAMINATION: GENERAL: The patient is alert and oriented x3, not in any acute distress. Well developed, well nourished. HEENT: Pupils are round and equally reacting to light. EOMI. No scleral icterus. No conjunctival pallor. Normocephalic, atraumatic. No pharyngeal erythema. No thyromegaly. CARDIOVASCULAR: S1 and S2 present. No murmurs, rubs, or gallops. PULMONARY: Diffuse bilateral rhonchi. Without any significant wheezing ABDOMEN: Soft, nontender, nondistended, normoactive bowel sounds. No palpable organomegaly. MUSCULOSKELETAL: No joint swelling or deformity. EXTREMITIES: No cyanosis, clubbing, does have bilateral pedal edema. NEUROLOGICAL: Gross neurological examination did not reveal any focal deficits. SKIN: No rashes. Results CBC & Chem 7: 01/31/20 06:58 01/31/20 06:58 Labs: Abnormal Lab Results - Last 24 Hours (Table) 01/30/20 01/30/20 01/30/20 Range/Units 14:56 14:56 14:56 RBC 3.64 L (3.80-5.40) m/uL Hgb 9.9 L (11.4-16.0) gm/dL Hct 31.1 L (34.0-46.0) % MCHC (31.0-37.0) g/dL RDW 17.1 H (11.5-15.5) % Lymphocytes # 0.3 L (1.0-4.8) k/uL PT 21.7 H (9.0-12.0) sec INR 2.2 H (<1.2) APTT 31.1 H (22.0-30.0) sec Sodium 135 L (137-145) mmol/L Chloride 97 L (98-107) mmol/L Carbon Dioxide 33 H (22-30) mmol/L BUN 24 H (7-17) mg/dL Glucose 506 H* (74-99) mg/dL POC Glucose (mg/dL) (75-99) mg/dL Hemoglobin A1c (4.0-6.0) % Calcium (8.4-10.2) mg/dL ALT 35 H (4-34) U/L Troponin I (0.000-0.034) ng/mL LDL Cholesterol, Calc (0-99) mg/dL 01/30/20 01/30/20 01/30/20 Range/Units 14:56 16:35 17:47 RBC (3.80-5.40) m/uL Hgb (11.4-16.0) gm/dL Hct (34.0-46.0) % MCHC (31.0-37.0) g/dL RDW (11.5-15.5) % Lymphocytes # (1.0-4.8) k/uL PT (9.0-12.0) sec INR (<1.2) APTT (22.0-30.0) sec Sodium (137-145) mmol/L Chloride (98-107) mmol/L Carbon Dioxide (22-30) mmol/L BUN (7-17) mg/dL Glucose (74-99) mg/dL POC Glucose (mg/dL) 359 H (75-99) mg/dL Hemoglobin A1c 8.4 H (4.0-6.0) % Calcium (8.4-10.2) mg/dL ALT (4-34) U/L Troponin I 0.071 H* (0.000-0.034) ng/mL LDL Cholesterol, Calc (0-99) mg/dL 01/30/20 01/30/20 01/31/20 Range/Units 20:20 21:35 06:08 RBC (3.80-5.40) m/uL Hgb (11.4-16.0) gm/dL Hct (34.0-46.0) % MCHC (31.0-37.0) g/dL RDW (11.5-15.5) % Lymphocytes # (1.0-4.8) k/uL PT (9.0-12.0) sec INR (<1.2) APTT (22.0-30.0) sec Sodium (137-145) mmol/L Chloride (98-107) mmol/L Carbon Dioxide (22-30) mmol/L BUN (7-17) mg/dL Glucose (74-99) mg/dL POC Glucose (mg/dL) 356 H 265 H (75-99) mg/dL Hemoglobin A1c (4.0-6.0) % Calcium (8.4-10.2) mg/dL ALT (4-34) U/L Troponin I 0.091 H* (0.000-0.034) ng/mL LDL Cholesterol, Calc (0-99) mg/dL 01/31/20 01/31/20 01/31/20 Range/Units 06:58 06:58 06:58 RBC 3.41 L (3.80-5.40) m/uL Hgb 9.0 L (11.4-16.0) gm/dL Hct 29.8 L (34.0-46.0) % MCHC 30.1 L (31.0-37.0) g/dL RDW 17.4 H (11.5-15.5) % Lymphocytes # (1.0-4.8) k/uL PT 25.4 H (9.0-12.0) sec INR 2.6 H (<1.2) APTT (22.0-30.0) sec Sodium (137-145) mmol/L Chloride (98-107) mmol/L Carbon Dioxide 33 H (22-30) mmol/L BUN 28 H (7-17) mg/dL Glucose 234 H (74-99) mg/dL POC Glucose (mg/dL) (75-99) mg/dL Hemoglobin A1c (4.0-6.0) % Calcium 8.1 L (8.4-10.2) mg/dL ALT (4-34) U/L Troponin I (0.000-0.034) ng/mL LDL Cholesterol, Calc 108 H (0-99) mg/dL Thrombosis Risk Factor Assmnt - Choose All That Apply Each Risk Factor Represents 2 Points: Age 61-74 years Thrombosis Risk Factor Assessment Total Risk Factor Score: 2 Thrombosis Risk Factor Assessment Level: Low Risk Assessment and Plan Plan: Chest pain: Cardiology will evaluate the patient will rule out a acute coronary syndromes. Patient is on Coumadin which will be continued further management of for possible acute coronary syndromes as per cardiology patient has minimally elevated troponins unsure patient actually had myocardial infarction. -Mild bronchitis with mild COPD exacerbation: Patient was smoked in the past is exposed to secondhand smoking was diagnosed with the COPD in the past was used with his oxygen presently requiring 3 L all the saturating well. Considering her highly elevated blood sugars will just treat her with inhalational treatme nts and inhalational steroids if she doesn't improve patient will need low-dose of oral steroids at that time. -type 2 diabetes mellitus uncontrolled highly elevated blood sugars: Secondary to systemic steroids as mentioned above -Acute on chronic hypercapnic respiratory failure secondary to COPD next and- depression -Atrial fibrillation presently rate controlled on Coumadin therapy on Coumadin -Gastroesophageal reflux disease -Hypothyroidism
--- NOTE | 2020-01-31 14:10 | P.CRDCN ---
History of Present Illness History of present illness: HISTORY OF PRESENTING ILLNESS This is a pleasant 74-year-old female past medical history significant for says mitral atrial fibrillation on long-term anticoagulation, end-stage COPD on home oxygen around the clock, hypertension, diabetes mellitus, chronic kidney disease, pulmonary hypertension and morbid obesity. 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 We have been asked to see in consultation for atrophic relation and chest pain. She states yesterday morning when she woke up she noticed a discomfort in the midsternal region of her chest described as a throbbing sensation. The symptoms were persistent through the day. She states she checked her oxygen level and her oxygen level on oxygen remained 98-99%. She has some associated shortness of breath and cough. She denies associated dizziness or palpitations. EKG on arrival revealed atrial fibrillation with heart rate of 117. She was given a Cardizem bolus and her heart rates improved. Currently she appears to be back in sinus mechanism with heart rates in the 70s. She has no further symptoms of chest discomfort. Chest x-ray is negative for an acute cardiopulmonary process with underlying interstitial lung disease. Laboratory data reviewed, WBC 6.5, hemoglobin 9, platelets 253, INR 2.6, sodium 138, potassium 3.9, creatinine 0.98, blood glucose on admission was 500 and 6 repeat today 234, troponin negative on admission repeat 0.071 and 0.091. Covid 19 negative. Current daily cardiac medications include diltiazem 180 mg daily, Lasix 40 mg twice a day, losartan 50 mg daily, lovastatin 40 mg daily, Lopressor 25 mg twice a day, daily potassium supplementation, Coumadin 5 mg at bedtime and hydralazine 25 mg 3 times a day as needed for hypertension. Most recent echocardiogram obtained October 2019 revealed preserved LV systolic function with ejection fraction 55-60% with moderate to severe pulmonary hypertension with an RVSP of 57 mmHg. REVIEW OF SYSTEMS At the time of my exam: CONSTITUTIONAL: Denies fever or chills. CARDIOVASCULAR: Denies chest pain, shortness of breath, orthopnea, PND or palpitations. RESPIRATORY: Complains of cough. GASTROINTESTINAL: Denies abdominal pain, diarrhea, constipation, nausea or vomiting. MUSCULOSKELETAL: Denies myalgias. NEUROLOGIC: Denies numbness, tingling or weakness. ENDOCRINE: Denies fatigue, weight change, polydipsia or polyurina. GENITOURINARY: Denies burning, hematuria or urgency with micturation. HEMATOLOGIC: Denies history of anemia or bleeding. PHYSICAL EXAMINATION Blood pressure 138/86 heart rate 74 afebrile and maintaining oxygen saturation on nasal cannula. CONSTITUTIONAL: No apparent distress. Morbidly obese. HEENT: Head is normocephalic. Pupils are equal, round. Sclerae anicteric. Mucous membranes of the mouth are moist. No JVD. No carotid bruit. CHEST EXAMINATION: Scattered rhonchi and expiratory wheezes. No rales. No chest wall tenderness is noted on palpation or with deep breathing. HEART EXAMINATION: Regular rate and rhythm. S1, S2 heard. No murmurs, gallops or rub. ABDOMEN: Soft, nontender. Positive bowel sounds. EXTREMITIES: 1+ peripheral pulses, bilateral lower extremity edema and erythema and no calf tenderness. NEUROLOGIC EXAMINATION: Patient is awake, alert and oriented x3. ASSESSMENT Chest pain, atypical for angina. Paroxysmal atrial fibrillation with rapid ventricular rates, currently back in SR Shortness of breath secondary to chronic COPD COPD on home oxygen Diabetes mellitus, uncontrolled with hyperglycemia on admission Hypertension Severe pulmonary hypertension Morbid obesity, BMI 41 PLAN She has converted to sinus mechanism. Chest pain is atypical for angina, secondary to afib. Mild troponin leak secondary to A. fib with RVR. Not consistent with myocardial injury pattern. Discontinue heparin infusion. Decrease aspirin to 81 mg daily. Increase lopressor to 50 mg BID. Obtain 2D echocardiogram and doppler study to assess cardiac structure and funct ion. Further recommendations to follow based on clinical course. Thank you kindly for this consultation. Nurse Practitioner note has been reviewed, I agree with a documented findings and plan of care. Patient was seen and examined. Past Medical History Past Medical History: Atrial Fibrillation, Asthma, Heart Failure, COPD, Diabetes Mellitus, GERD/Reflux, Hearing Disorder / Deafness, Hypertension, Osteoarthritis (OA), Pneumonia, Renal Disease, Thyroid Disorder Additional Past Medical History / Comment(s): HOLE IN RIGHT RETINA. hiatal hernia, anemia, chronic hypoxic respiratory failure, recent pulmonary infection with pseudomonas aeruginosa confirmed via bronchoscopy and the lavage, History of Any Multi-Drug Resistant Organisms: Other MDRO Past Surgical History: Cholecystectomy, Hysterectomy Additional Past Surgical History / Comment(s): CATARACT REMOVAL LEFT EYE. Past Anesthesia/Blood Transfusion Reactions: No Reported Reaction Past Psychological History: Anxiety, Panic Disorder Smoking Status: Never smoker Past Alcohol Use History: None Reported Past Drug Use History: None Reported - Past Family History Mother Family Medical History: No Reported History Medications and Allergies Home Medications Medication Instructions Recorded Confirmed Type ALPRAZolam [Xanax] 0.5 mg PO TID 01/16/19 01/30/20 History Alendronate Sodium [Fosamax] 70 mg PO FR 01/16/19 01/30/20 History Citalopram Hydrobromide 40 mg PO DAILY 01/16/19 01/30/20 History [Citalopram HBr] Diltiazem HCl [Diltiazem HCl 24Hr 180 mg PO DAILY 01/16/19 01/30/20 History ER] Ipratropium Nebulized [Atrovent 0.5 mg INHALATION RT-QID 01/16/19 01/30/20 History Nebulized 0.2 MG/ML] Levothyroxine Sodium [Synthroid] 50 mcg PO DAILY 01/16/19 01/30/20 History Losartan [Cozaar] 50 mg PO DAILY 01/16/19 01/30/20 History Lovastatin [Mevacor] 40 mg PO DAILY 01/16/19 01/30/20 History Zafirlukast [Accolate] 20 mg PO BID 01/16/19 01/30/20 History traMADol HCL 50 mg PO TID PRN 01/16/19 01/30/20 History Warfarin Sodium [Coumadin] 5 mg PO HS 06/28/19 01/30/20 History Albuterol Sulfate [Ventolin HFA] 1 - 2 puff INHALATION RT-Q6H PRN 08/07/19 01/30/20 History Loratadine [Claritin] 10 mg PO DAILY 08/07/19 01/30/20 History Ferrous Sulfate [Iron (65 MG 325 mg PO DAILY #30 tab 08/10/19 01/30/20 Rx Elemental)] Insulin Regular, Human [NovoLIN R] See Protocol SQ ACHS MDD 30 UNITS 09/11/19 01/30/20 History Budesonide-Formot 160-4.5 Mcg 2 puff INHALATION RT-BID #1 puff 09/15/19 01/30/20 Rx [Symbicort 160-4.5 Mcg Inhaler] Pantoprazole [Protonix] 40 mg PO AC-BRKFST #30 tablet. 09/15/19 01/30/20 Rx Multivitamins, Thera [Multivitamin 1 tab PO DAILY 11/27/19 01/30/20 History (formulary)] Potassium Chloride [Klor-Con 20] 20 meq PO DAILY #0 12/02/19 01/30/20 Rx guaiFENesin [Mucinex] 600 mg PO Q12H PRN 12/10/19 01/30/20 History Insulin Glargine [Lantus] 70 unit SQ DAILY #1 12/15/19 01/30/20 Rx Metoprolol Tartrate [Lopressor] 25 mg PO BID #60 tab 12/15/19 01/30/20 Rx Albuterol Nebulized [Ventolin 1.25 mg INHALATION RT-Q4H 01/30/20 01/30/20 History Nebulized] Furosemide [Lasix] 40 mg PO BID 01/30/20 01/30/20 History hydrALAZINE HCL [Apresoline] 25 mg PO TID PRN 01/30/20 01/30/20 History methylPREDNISolone Dose Pack See Taper PO DAILY 01/30/20 01/30/20 History [Medrol Dose Pack] Allergies Allergy/AdvReac Type Severity Reaction Status Date / Time Iodinated Contrast Media Allergy Unknown, Verified 01/30/20 17:32 POOR RENAL FUNCTIONS latex AdvReac Rash/Hives Verified 01/30/20 17:32 Penicillins AdvReac Rash/Hives Verified 01/30/20 17:32 Physical Exam Vitals: Vital Signs Temp Pulse Pulse Resp BP BP Pulse Ox 01/31/20 04:00 97.7 F 80 20 138/86 99 01/31/20 02:00 95 20 01/31/20 00:00 98.0 F 95 20 154/75 100 01/30/20 21:45 97.6 F 93 18 155/72 99 01/30/20 21:25 93 20 01/30/20 20:44 88 20 149/71 100 01/30/20 20:16 90 01/30/20 20:09 90 01/30/20 19:08 90 18 152/93 97 01/30/20 16:45 95 20 178/90 98 01/30/20 16:15 98 22 173/76 99 01/30/20 15:20 102 H 22 139/76 98 01/30/20 14:04 99.0 F 111 H 18 185/62 99 Intake and Output 01/30/20 01/31/20 01/31/20 22:59 06:59 14:59 Other: Voiding Method Bedside Commode Bedside Commode # Voids 1 Weight 106.594 kg 109.9 kg Results 01/31/20 06:58 01/31/20 06:58 Cardiac Enzymes 01/30/20 01/30/20 01/30/20 Range/Units 14:56 14:56 17:47 AST 32 (14-36) U/L Troponin I <0.012 0.071 H* (0.000-0.034) ng/mL 01/30/20 Range/Units 20:20 AST (14-36) U/L Troponin I 0.091 H* (0.000-0.034) ng/mL Coagulation 01/30/20 01/31/20 Range/Units 14:56 06:58 PT 21.7 H 25.4 H (9.0-12.0) sec APTT 31.1 H (22.0-30.0) sec Lipids 01/31/20 Range/Units 06:58 Triglycerides 75 (<150) mg/dL Cholesterol 172 (<200) mg/dL HDL Cholesterol 49 (40-60) mg/dL CBC 01/30/20 01/31/20 Range/Units 14:56 06:58 WBC 5.7 6.5 (3.8-10.6) k/uL RBC 3.64 L 3.41 L (3.80-5.40) m/uL Hgb 9.9 L 9.0 L (11.4-16.0) gm/dL Hct 31.1 L 29.8 L (34.0-46.0) % Plt Count 227 253 (150-450) k/uL Comprehensive Metabolic Panel 01/30/20 01/31/20 Range/Units 14:56 06:58 Sodium 135 L 138 (137-145) mmol/L Potassium 4.2 3.9 (3.5-5.1) mmol/L Chloride 97 L 102 (98-107) mmol/L Carbon Dioxide 33 H 33 H (22-30) mmol/L BUN 24 H 28 H (7-17) mg/dL Creatinine 0.82 0.98 (0.52-1.04) mg/dL Glucose 506 H* 234 H (74-99) mg/dL Calcium 8.8 8.1 L (8.4-10.2) mg/dL AST 32 (14-36) U/L ALT 35 H (4-34) U/L Alkaline Phosphatase 75 (38-126) U/L Total Protein 7.1 (6.3-8.2) g/dL Albumin 3.7 (3.5-5.0) g/dL Current Medications Generic Name Dose Route Start Last Admin Trade Name Freq PRN Reason Stop Dose Admin Albuterol Sulfate 2.5 mg 01/30/20 19:08 01/30/20 20:05 Albuterol Nebulized 2.5 Mg/3 Ml INHALATION 2.5 mg RT-Q6H PRN Administration Shortness Of Breath Albuterol/Ipratropium 3 ml 01/30/20 18:49 Ipratropium-Albuterol 3 Ml Neb INHALATION RT-QID PRN Shortness Of Breath Aspirin 325 mg 01/31/20 09:00 Aspirin 325 Mg Tab PO DAILY JS Budesonide/Formoterol Fumarate 2 puff 01/30/20 20:00 01/31/20 09:02 Symbicort 160-4.5 Mcg Inhaler INHALATION 2 puff RT-BID JS Administration Citalopram Hydrobromide 40 mg 01/31/20 09:00 Citalopram Hydrobromide 20 Mg Tab PO DAILY JS Ferrous Sulfate 325 mg 01/31/20 09:00 Ferrous Sulfate 325 Mg Tab PO DAILY JS Furosemide 40 mg 01/31/20 09:00 Furosemide 40 Mg Tab PO BID@0900,1600 JS Guaifenesin 600 mg 01/30/20 18:49 Guaifenesin 600 Mg Tablet.Er PO Q12H PRN Cough Hydralazine HCl 25 mg 01/30/20 18:49 Hydralazine Hcl 25 Mg Tab PO TID PRN Blood Pressure - High Diltiazem HCl 125 mg/ Sodium 125 mls @ 5 mls/hr 01/30/20 14:45 01/30/20 16:23 Chloride IV Not Given .Q24H JS 5 MG/HR Insulin Aspart 0 unit 01/30/20 17:30 01/31/20 06:56 Insulin Aspart (Novolog) 100 Unit/Ml Vial SQ 6 unit ACHS [facility] Administration Protocol Insulin Detemir 70 unit 01/31/20 07:00 01/31/20 06:56 Insulin Detemir (Levemir) 100 Unit/Ml Syr SQ 70 unit DAILY@0700 [facility] Administration Levothyroxine Sodium 50 mcg 01/31/20 06:30 01/31/20 06:56 Levothyroxine 50 Mcg Tab PO 50 mcg DAILY@0630 [facility] Administration Losartan Potassium 50 mg 01/31/20 09:00 Losartan 50 Mg Tab PO DAILY [facility] Metoprolol Tartrate 25 mg 01/30/20 21:00 01/30/20 23:32 Metoprolol Tartrate 25 Mg Tab PO 25 mg BID [facility] Administration Miscellaneous Information 0 each 01/30/20 19:17 Warfarin Per Pharmacy MISCELLANE DIRECTED PRN Per Protocol Nitroglycerin 0.4 mg 01/30/20 16:16 Nitroglycerin Sl Tabs 0.4 Mg Tab SUBLINGUAL Q5M PRN Chest Pain Pantoprazole Sodium 40 mg 01/31/20 07:30 01/31/20 06:56 Pantoprazole 40 Mg Tablet PO 40 mg AC-BRKFST [facility] Administration Potassium Chloride 20 meq 01/31/20 09:00 Potassium Chloride Er 20 Meq Tab.Er PO DAILY [facility] Warfarin Sodium 5 mg 01/30/20 21:00 01/30/20 23:32 Warfarin 5 Mg Tab PO 5 mg DAILY@1800 [facility] Administration Protocol Intake and Output 01/30/20 01/31/20 01/31/20 22:59 06:59 14:59 Other: Voiding Method Bedside Commode Bedside Commode # Voids 1 Weight 106.594 kg 109.9 kg 01/31/20 06:58 01/31/20 06:58
--- NOTE | 2020-01-31 15:35 | ECHOF ---
Referral Reason:cp MEASUREMENTS -------- HEIGHT: 162.6 cm WEIGHT: 109.8 kg BP: 139/76 RVIDd: 4.4 cm (< 3.3) IVSd: 2.1 cm (0.6 - 1.1) LVIDd: 4.0 cm (3.9 - 5.3) LVPWd: 1.7 cm (0.6 - 1.1) IVSs: 2.1 cm LVIDs: 2.9 cm LVPWs: 1.8 cm LAESV Index (A-L): 30.68 ml/m Ao Diam: 3.4 cm (2.0 - 3.7) AV Cusp: 2.1 cm (1.5 - 2.6) MV EXCURSION: 15.119 mm (> 18.000) MV EF SLOPE: 68 mm/s (70 - 150) EPSS: 1.5 cm MV E Brendan: 1.27 m/s MV DecT: 256 ms MV A Brendan: 1.06 m/s MV E/A Ratio: 1.19 AR PHT: 432 ms RAP: 5.00 mmHg RVSP: 54.16 mmHg FINDINGS -------- This was a technically difficult study with suboptimal views. The left ventricular size is normal. There is severe concentric left ventricular hypertrophy. Ove rall left ventricular systolic function is low-normal with, an EF between 50 - 55 %. The right ventricle is moderate to severely enlarged. LA is midly dilated 29-33ml/m2. The right atrium is mildly enlarged. Lumason used Interatrial and interventricular septum intact. The aortic valve is trileaflet and appears structurally normal. There is no evidence of aortic regu rgitation. There is no evidence of aortic stenosis. Mild mitral regurgitation is present. Moderate to severe tricuspid regurgitation present. There is severe pulmonary hypertension. The r ight ventricular systolic pressure, as measured by Doppler, is 54.16mmHg. There is no pulmonic regurgitation present. The aortic root size is normal. IVC Not well visulized. There is no pericardial effusion. CONCLUSIONS -------- 1. The left ventricular size is normal. 2. There is severe concentric left ventricular hypertrophy. 3. Overall left ventricular systolic function is low-normal with, an EF between 50 - 55 %. 4. The right ventricle is moderate to severely enlarged. 5. LA is midly dilated 29-33ml/m2. 6. The right atrium is mildly enlarged. 7. Mild mitral regurgitation is present. 8. Moderate to severe tricuspid regurgitation present. LABORATORY SPECIALIST: Citlalli Beatty RDCS
[2020-01-31 16:53] LABS: Glucose,Whole Blood 140 mg/dL (75-99)
[2020-01-31] MEDS: METOPROLOL TARTRATE 25 MG TAB PO SCH (17:03)
[2020-01-31] MEDS: FAMOTIDINE 20 MG TAB PO SCH (17:10)
[2020-01-31] MEDS: WARFARIN 5 MG TAB PO SCH (17:10)
[2020-01-31 20:26] LABS: Glucose,Whole Blood 119 mg/dL (75-99)
[2020-01-31] MEDS: METOPROLOL TARTRATE 50 MG TAB PO SCH (20:29)
[2020-01-31] MEDS: FUROSEMIDE 10 MG/ML 4 ML VIAL IV SCH (20:29)
[2020-01-31] MEDS ORDERED: MONTELUKAST 10 MG TAB PO SCH (21:00)
[2020-02-01 06:13] LABS: Glucose,Whole Blood 59 mg/dL (75-99)
[2020-02-01] MEDS: INSULIN ASPART (NovoLOG) 100 UNIT/ML VIAL SQ SCH ×3 (06:22→17:11)
[2020-02-01] MEDS: PANTOPRAZOLE 40 MG TABLET PO SCH (06:25)
[2020-02-01] MEDS: LEVOTHYROXINE 50 MCG TAB PO SCH (06:25)
[2020-02-01 06:27] LABS: Glucose,Whole Blood 76 mg/dL (75-99)
[2020-02-01] MEDS ORDERED: ATORVASTATIN 10 MG TAB PO SCH (09:00)
[2020-02-01] MEDS ORDERED: ASPIRIN 81 MG PO SCH (09:00)
[2020-02-01] MEDS: SYMBICORT 160-4.5 MCG INHALER INHALATION SCH (09:01)
[2020-02-01] MEDS: IPRATROPIUM-ALBUTEROL 3 ML NEB INHALATION PRN ×2 (09:01→12:14)
[2020-02-01] MEDS: INSULIN DETEMIR (LEVEMIR) 100 UNIT/ML SYR SQ SCH (09:24)
[2020-02-01] MEDS: FAMOTIDINE 20 MG TAB PO SCH (09:35)
[2020-02-01] MEDS: METOPROLOL TARTRATE 50 MG TAB PO SCH (09:35)
[2020-02-01] MEDS: CITALOPRAM HYDROBROMIDE 20 MG TAB PO SCH (09:36)
[2020-02-01] MEDS: POTASSIUM CHLORIDE ER 20 MEQ TAB.ER PO SCH (09:36)
[2020-02-01] MEDS: FUROSEMIDE 10 MG/ML 4 ML VIAL IV SCH (09:36)
[2020-02-01] MEDS: FERROUS SULFATE 325 MG TAB PO SCH (09:36)
[2020-02-01] MEDS: LOSARTAN 50 MG TAB PO SCH (09:39)
[2020-02-01 09:44] VITALS: TEMP 96
[2020-02-01 12:14] LABS: INR 2.8 (<1.2); Prothrombin Time 27.5 sec (9.0-12.0)
[2020-02-01 12:20] LABS: Glucose,Whole Blood 85 mg/dL (75-99)
[2020-02-01 12:38] VITALS: RESP 16
--- NOTE | 2020-02-01 12:51 | P.PN ---
Subjective HISTORY OF PRESENTING ILLNESS This is a pleasant 74-year-old female past medical history significant for says mitral atrial fibrillation on long-term anticoagulation, end-stage COPD on home oxygen around the clock, hypertension, diabetes mellitus, chronic kidney disease, pulmonary hypertension and morbid obesity. She does not follow re gularly in the office with a adapted physical education specialist. She is seen and examined sitting up in the chair in no acute distress. She denies any further chest pain. Breathing is stable. She denies dizziness or palpitations. Blood pressure 148/72 heart rate 78 afebrile and maintaining oxygen saturation on nasal cannula. Echocardiogram obtained reveals preserved LV systolic function with EF 50-55% with moderate-severe TR and moderate pulmonary hypertension with RVSP 54 mmHg. PHYSICAL EXAMINATION CONSTITUTIONAL: No apparent distress. Morbidly obese. HEENT: Head is normocephalic. Pupils are equal, round. Sclerae anicteric. Mucous membranes of the mouth are moist. No JVD. No carotid bruit. CHEST EXAMINATION: Scattered rhonchi and expiratory wheezes. No rales. No chest wall tenderness is noted on palpation or with deep breathing. HEART EXAMINATION: Regular rate and rhythm. S1, S2 heard. No murmurs, gallops or rub. EXTREMITIES: 1+ peripheral pulses, bilateral lower extremity edema and erythema and no calf tenderness. ASSESSMENT Chest pain, atypical for angina. Paroxysmal atrial fibrillation with rapid ventricular rates, currently back in SR Shortness of breath secondary to chronic COPD COPD on home oxygen Diabetes mellitus, uncontrolled with hyperglycemia on admission Hypertension Severe pulmonary hypertension Morbid obesity, BMI 41 PLAN Stable for discharge on current medical regimen. Follow up with Dr. Pruett in the office in 2 weeks. Nurse Practitioner note has been reviewed, I agree with a documented findings and plan of care. Patient was seen and examined. Objective - Vital Signs Vital signs: Vital Signs Temp 96 F L 02/01/20 08:00 Pulse 78 02/01/20 12:24 Resp 16 02/01/20 12:00 BP 148/72 02/01/20 12:00 Pulse Ox 98 02/01/20 12:00 Intake & Output 01/31/20 02/01/20 02/01/20 18:59 06:59 18:59 Intake Total 360 690 480 Output Total 400 Balance -40 690 480 Weight 110.8 kg Intake: Oral 360 690 480 Output: Urine 400 Other: Voiding Method Bedside Commode Bedside Commode Bedside Commode # Voids 1 # Bowel Movements 1 1 - Labs CBC & Chem 7: 01/31/20 06:58 01/31/20 06:58 Labs: Abnormal Lab Results - Last 24 Hours (Table) 01/31/20 01/31/20 02/01/20 Range/Units 16:52 20:24 06:09 PT (9.0-12.0) sec INR (<1.2) POC Glucose (mg/dL) 140 H 119 H 59 L (75-99) mg/dL 02/01/20 Range/Units 11:20 PT 27.5 H (9.0-12.0) sec INR 2.8 H (<1.2) POC Glucose (mg/dL) (75-99) mg/dL
[2020-02-01] MEDS: ALBUTEROL NEBULIZED 2.5 MG/3 ML INHALATION PRN (15:58)
[2020-02-01 17:00] LABS: Glucose,Whole Blood 122 mg/dL (75-99)
[2020-02-01] MEDS: WARFARIN 5 MG TAB PO SCH (17:25)
[2020-02-01 17:28] VITALS: BP 138/85; PULSE 82
--- NOTE | 2020-02-04 12:28 | P.DS ---
Providers Date of admission: 01/30/20 16:16 Expected date of discharge: 02/01/20 Attending physician: See Zamudio MD Consults: 01/30/20 16:16 Consult Physician Urgent Consulting Provider: Malika Pruett Consult Reason/Comments: afib, chest pain Do you want consulting provider notified?: Yes Primary care physician: Verona Medrano Hospital Course: Final diagnosis -Chest pain: Ruled out acute coronary syndrome -Mild bronchitis with mild COPD exacerbation -type 2 diabetes mellitus uncontrolled highly elevated blood sugars: Secondary to systemic steroids -Acute on chronic hypercapnic respiratory failure secondary to COPD -depression -Atrial fibrillation presently rate controlled on Coumadin therapy -Gastroesophageal reflux disease -Hypothyroidism Discharge disposition Patient is being discharged in a stable condition with guarded prognosis to home. Patient will follow-up with Dr. Medrano in the outpatient setting upon discharge. Patient is to continue with prednisone taper as scheduled. Patient will follow-up with Dr. Benitez Pruett in one week. Total time taken is greater than 35 minutes. History of present illness This is a 74-year-old female who was recently admitted with chest discomfort in the retrosternal area with no radiation along with increasing pedal edema and elevated blood sugars and was being closely monitored. Patient was seen and evaluated by cardiology and will follow-up with them in the outpatient setting. Will continue on a prednisone taper upon discharge. Patient had an echo done showing low to normal with an EF between 50-55%. Patient is maintained on Lasix and will continue at this time. Patient's blood sugars have improved and patient instructed to continue monitoring blood sugars before meals at bedtime and treat accordingly with current regimen. Patient instructed to keep a diary for primary care follow-up as sugars continue to be variable. Currently no reports of chest pain, worsening shortness of breath, or palpitations. Patient is afebrile. No reports of nausea or vomiting and patient is tolerating diet. Patient will be going home today. On exam vital signs are stable. Temp is 96.0F, pulse is 82, respirations are 16, blood pressure is 138/85, oxygen saturation is 94% on 2 L via nasal cannula. Cardio S1, S2 are muffled. Respiratory system shows diminished breath sounds at the bases with some scattered rhonchi noted. Abdomen is soft and obese, and nontender. Nervous system shows no focal deficits. Please refer to medication reconciliation sheet for a list of medications. Patient Condition at Discharge: Fair Plan - Discharge Summary Discharge Rx Participant: No New Discharge Prescriptions: New Aspirin 81 mg PO DAILY 30 Days #30 chew Continue Diltiazem HCl [Diltiazem HCl 24Hr ER] 180 mg PO DAILY Alendronate Sodium [Fosamax] 70 mg PO FR Lovastatin [Mevacor] 40 mg PO DAILY Citalopram Hydrobromide [Citalopram HBr] 40 mg PO DAILY ALPRAZolam [Xanax] 0.5 mg PO TID Ipratropium Nebulized [Atrovent Nebulized 0.2 MG/ML] 0.5 mg INHALATION RT-QID Levothyroxine Sodium [Synthroid] 50 mcg PO DAILY Losartan [Cozaar] 50 mg PO DAILY traMADol HCL 50 mg PO TID PRN PRN Reason: Pain Zafirlukast [Accolate] 20 mg PO BID Warfarin Sodium [Coumadin] 5 mg PO HS Loratadine [Claritin] 10 mg PO DAILY Albuterol Sulfate [Ventolin HFA] 1 - 2 puff INHALATION RT-Q6H PRN PRN Reason: Shortness Of Breath Ferrous Sulfate [Iron (65 MG Elemental)] 325 mg PO DAILY #30 tab Insulin Regular, Human [NovoLIN R] See Protocol SQ ACHS MDD 30 UNITS Pantoprazole [Protonix] 40 mg PO AC-BRKFST #30 tablet. Budesonide-Formot 160-4.5 Mcg [Symbicort 160-4.5 Mcg Inhaler] 2 puff INHALATION RT-BID #1 puff Multivitamins, Thera [Multivitamin (formulary)] 1 tab PO DAILY Potassium Chloride [Klor-Con 20] 20 meq PO DAILY #0 guaiFENesin [Mucinex] 600 mg PO Q12H PRN PRN Reason: Cough Metoprolol Tartrate [Lopressor] 25 mg PO BID #60 tab Insulin Glargine [Lantus] 70 unit SQ DAILY #1 Albuterol Nebulized [Ventolin Nebulized] 1.25 mg INHALATION RT-Q4H Furosemide [Lasix] 40 mg PO BID methylPREDNISolone Dose Pack [Medrol Dose Pack] See Taper PO DAILY hydrALAZINE HCL [Apresoline] 25 mg PO TID PRN PRN Reason: Blood Pressure - High Discharge Medication List ALPRAZolam [Xanax] 0.5 mg PO TID 01/16/19 [History] Alendronate Sodium [Fosamax] 70 mg PO FR 01/16/19 [History] Citalopram Hydrobromide [Citalopram HBr] 40 mg PO DAILY 01/16/19 [History] Diltiazem HCl [Diltiazem HCl 24Hr ER] 180 mg PO DAILY 01/16/19 [History] Ipratropium Nebulized [Atrovent Nebulized 0.2 MG/ML] 0.5 mg INHALATION RT-QID 01/16/19 [History] Levothyroxine Sodium [Synthroid] 50 mcg PO DAILY 01/16/19 [History] Losartan [Cozaar] 50 mg PO DAILY 01/16/19 [History] Lovastatin [Mevacor] 40 mg PO DAILY 01/16/19 [History] Zafirlukast [Accolate] 20 mg PO BID 01/16/19 [History] traMADol HCL 50 mg PO TID PRN 01/16/19 [History] Warfarin Sodium [Coumadin] 5 mg PO HS 06/28/19 [History] Albuterol Sulfate [Ventolin HFA] 1 - 2 puff INHALATION RT-Q6H PRN 08/07/19 [History] Loratadine [Claritin] 10 mg PO DAILY 08/07/19 [History] Ferrous Sulfate [Iron (65 MG Elemental)] 325 mg PO DAILY #30 tab 08/10/19 [Rx] Insulin Regular, Human [NovoLIN R] See Protocol SQ ACHS MDD 30 UNITS 09/11/19 [History] Budesonide-Formot 160-4.5 Mcg [Symbicort 160-4.5 Mcg Inhaler] 2 puff INHALATION RT-BID #1 puff 09/15/19 [Rx] Pantoprazole [Protonix] 40 mg PO AC-BRKFST #30 tablet. 09/15/19 [Rx] Multivitamins, Thera [Multivitamin (formulary)] 1 tab PO DAILY 11/27/19 [History] Potassium Chloride [Klor-Con 20] 20 meq PO DAILY #0 12/02/19 [Rx] guaiFENesin [Mucinex] 600 mg PO Q12H PRN 12/10/19 [History] Insulin Glargine [Lantus] 70 unit SQ DAILY #1 12/15/19 [Rx] Metoprolol Tartrate [Lopressor] 25 mg PO BID #60 tab 12/15/19 [Rx] Albuterol Nebulized [Ventolin Nebulized] 1.25 mg INHALATION RT-Q4H 01/30/20 [History] Furosemide [Lasix] 40 mg PO BID 01/30/20 [History] hydrALAZINE HCL [Apresoline] 25 mg PO TID PRN 01/30/20 [History] methylPREDNISolone Dose Pack [Medrol Dose Pack] See Taper PO DAILY 01/30/20 [History] Aspirin 81 mg PO DAILY 30 Days #30 chew 02/01/20 [Rx] Follow up Appointment(s)/Referral(s): Malika Pruett MD [STAFF PHYSICIAN] - 02/12/20 2:15 pm (APPOINTMENT WILL BE AT THE [facility] OFFICE LOCATION [address] [place] [address]) Verona Medrano MD [Primary Care Provider] - 1-2 days Activity/Diet/Wound Care/Special Instructions: Activity Limited until follow-up Follow-up with primary care provider upon discharge Continue current diabetic heart healthy diet Follow-up with cardiology in the outpatient setting Discharge Disposition: HOME SELF-CARE
== END 2020-02-01 18:26 | disposition home or self-care (01) ==
LOC: EC 13:58 → 3SCARD 16:16
PROVIDERS: ADMIT Internal Medicine; ATTEND Internal Medicine
DX: R07.89 Other chest pain (principal); I48.0 Paroxysmal atrial fibrillation; J44.9 Chronic obstructive pulmonary disease, unspecified; I50.9 Heart failure, unspecified; K21.9 Gastro-esophageal reflux disease without esophagitis; H91.90 Unspecified hearing loss, unspecified ear; I11.0 Hypertensive heart disease with heart failure; M19.90 Unspecified osteoarthritis, unspecified site; D64.9 Anemia, unspecified; F41.0 Panic disorder [episodic paroxysmal anxiety]; E11.65 Type 2 diabetes mellitus with hyperglycemia; E66.01 Morbid (severe) obesity due to excess calories; Z68.41 Body mass index [BMI] 40.0-44.9, adult; E11.22 Type 2 diabetes mellitus with diabetic chronic kidney disease; I13.0 Hypertensive heart and chronic kidney disease with heart failure and stage 1 through stage 4 chronic kidney disease, or unspecified chronic kidney disease; N18.9 Chronic kidney disease, unspecified; F32.9 Major depressive disorder, single episode, unspecified; J96.22 Acute and chronic respiratory failure with hypercapnia; J96.21 Acute and chronic respiratory failure with hypoxia; E03.9 Hypothyroidism, unspecified; I27.20 Pulmonary hypertension, unspecified; Z90.710 Acquired absence of both cervix and uterus; Z79.51 Long term (current) use of inhaled steroids; Z99.81 Dependence on supplemental oxygen; Z79.01 Long term (current) use of anticoagulants; Z79.83 Long term (current) use of bisphosphonates; Z79.890 Hormone replacement therapy; Z79.899 Other long term (current) drug therapy; Z79.4 Long term (current) use of insulin; Z88.0 Allergy status to penicillin; Z91.041 Radiographic dye allergy status; Z91.040 Latex allergy status; Z87.891 Personal history of nicotine dependence; Z87.01 Personal history of pneumonia (recurrent); Z90.49 Acquired absence of other specified parts of digestive tract; Z16.24 Resistance to multiple antibiotics; Z20.828 Contact with and (suspected) exposure to other viral communicable diseases; T38.0X5A Adverse effect of glucocorticoids and synthetic analogues, initial encounter
CPT/HCPCS: 96376; 96375; 93005 ×2; 96361; 96374; 99291; 36415; 94640 ×5; 94760; 83880; 80061; 80053; 80048; 83690; 83735; 84484; 85025 ×2; 85610 ×3; 85730; 83036; 87636; 71046; G0378 ×3; C8929; J1940 ×2; Q9950; 93306

== ENCOUNTER 2020-04-02 18:51 | Inpatient (IN) | payer MEDICARE ==
[2020-04-02 19:39] LABS: Anisocytosis Slight; Basophils % (A) 0 %; Eosinophils # (A) 0.2 k/uL (0-0.7); Eosinophils % (A) 1 %; HCT 30.9 % (34.0-46.0); HGB 9.8 gm/dL (11.4-16.0); Hypochromasia Slight; Lymphocytes # (A) 2.6 k/uL (1.0-4.8); Lymphocytes % (A) 16 %; MCH 26.6 pg (25.0-35.0); MCHC 31.6 g/dL (31.0-37.0); MCV 84.1 fL (80.0-100.0); Mean Platelet Volume 7.1; Monocytes # (A) 1.2 k/uL (0-1.0); Monocytes % (A) 7 %; Neutrophils # (A) 12.1 k/uL (1.3-7.7); Neutrophils % (A) 75 %; Platelet Count 185 k/uL (150-450); RBC 3.67 m/uL (3.80-5.40); RDW 16.7 % (11.5-15.5); WBC 16.2 k/uL (3.8-10.6)
[2020-04-02 19:48] LABS: INR 2.7 (<1.2); Partial Thromboplastin Time 27.3 sec (22.0-30.0); Prothrombin Time 26.4 sec (9.0-12.0)
[2020-04-02 19:52] LABS: Albumin 3.4 g/dL (3.5-5.0); Calcium 8.5 mg/dL (8.4-10.2); Potassium 5.7 mmol/L (3.5-5.1); Total Bilirubin 0.6 mg/dL (0.2-1.3); Total Protein 6.1 g/dL (6.3-8.2)
[2020-04-02] MEDS ORDERED: SODIUM CHLORIDE 0.9% 1,000 ML IV ONE (20:07)
--- NOTE | 2020-04-02 20:11 | CT ---
EXAMINATION TYPE: CT brain inderjitine wo con DATE OF EXAM: 04/02/2020 COMPARISON: 02/27/2010. HISTORY: fall CT DLP: 1437.8 mGycm Automated exposure control for dose reduction was used. TECHNIQUE: CT scan of the head and cervical spine are performed without contrast. FINDINGS: There is no acute intracranial hemorrhage, mass effect, or midline shift identified. The ventricles and sulci are within normal limits in size. The globes are intact. The visualized sinuse s demonstrate moderate disease. Cervical spine is visualized in its entirety from C1 through upper thoracic levels and demonstrates s atisfactory alignment without evidence of acute fracture or dislocation. Prevertebral soft tissue ap pears within normal limits. The C1-C2 articulation is unremarkable. There is multilevel moderate ce rvical spondylosis. There is suggestion of biapical pleural thickening. IMPRESSION: 1. There is no acute fracture or dislocation evident in the cervical spine. 2. No acute intracranial hemorrhage, mass effect, or midline shift is seen.
--- NOTE | 2020-04-02 20:13 | XR ---
Result: Clinical History: Pain status post fall. Comparison: None available. Technique: 3 views of the right shoulder. Findings: The bone mineralization is appropriate for age. No acute fracture or dislocation is seen. The acromioclavicular and glenohumeral joints demonstrate mild to moderate osteoarthritis. The visualized lung demonstrate atelectatic changes. Impression: No acute osseous abnormality.
--- NOTE | 2020-04-02 20:13 | ED ---
Fall HPI - General Chief Complaint: Fall Stated Complaint: Fall Time Seen by Provider: 04/02/20 19:05 Source: patient, EMS Mode of arrival: EMS - History of Present Illness Initial Comments: 74 year-old female patient presents to the emergency department for evaluation after experiencing a fall. Patient states she was up using the bathroom when she tripped and fell forward hitting her face on the floor. Patient believes she did pass out. She is currently reporting a headache. Denies any facial pain. Denies blurred or double vision. Denies any neck or back pain. States she did injure her right shoulder in the fall. She does take Coumadin. She is currently on hospice but is a full code. Patient denies any chest pain, shortness of breath, dizziness, weakness, abdominal pain, nausea, vomiting, or difficulties with bowel movements or urination. - Related Data Home Medications Medication Instructions Recorded Confirmed ALPRAZolam [Xanax] 0.5 mg PO BID 01/16/19 04/02/20 Alendronate Sodium [Fosamax] 70 mg PO FR 01/16/19 04/02/20 Citalopram Hydrobromide 40 mg PO DAILY 01/16/19 04/02/20 [Citalopram HBr] Diltiazem HCl [Diltiazem HCl 24Hr 180 mg PO DAILY 01/16/19 04/02/20 ER] Ipratropium Nebulized [Atrovent 0.5 mg INHALATION DIRECTED PRN 01/16/19 04/02/20 Nebulized 0.2 MG/ML] Levothyroxine Sodium [Synthroid] 50 mcg PO DAILY 01/16/19 04/02/20 Losartan [Cozaar] 50 mg PO DAILY 01/16/19 04/02/20 Lovastatin [Mevacor] 40 mg PO DAILY 01/16/19 04/02/20 Zafirlukast [Accolate] 20 mg PO BID 01/16/19 04/02/20 traMADol HCL 50 mg PO TID PRN 01/16/19 04/02/20 Warfarin Sodium [Coumadin] 5 mg PO HS 06/28/19 04/02/20 Albuterol Sulfate [Ventolin HFA] 1 - 2 puff INHALATION RT-Q6H PRN 08/07/19 04/02/20 Loratadine [Claritin] 10 mg PO DAILY PRN 08/07/19 04/02/20 Insulin Regular, Human [NovoLIN R] See Protocol SQ AC-TID 09/11/19 04/02/20 Multivitamins, Thera [Multivitamin 1 tab PO DAILY 11/27/19 04/02/20 (formulary)] guaiFENesin [Mucinex] 600 mg PO Q12H PRN 12/10/19 04/02/20 Albuterol Nebulized [Ventolin 1.25 mg INHALATION RT-Q4H PRN 01/30/20 04/02/20 Nebulized] Furosemide [Lasix] 40 mg PO BID 01/30/20 04/02/20 hydrALAZINE HCL [Apresoline] 25 mg PO TID PRN 01/30/20 04/02/20 Benzonatate [Tessalon Perles] 100 mg PO BID PRN 04/02/20 04/02/20 Doxycycline Hyclate [Vibramycin] 100 mg PO BID 04/02/20 04/02/20 Insulin Glargine [Lantus] 30 unit SQ DAILY 04/02/20 04/02/20 Metoprolol Tartrate [Lopressor] 50 mg PO BID 04/02/20 04/02/20 Previous Rx's Medication Instructions Recorded Ferrous Sulfate [Iron (65 MG 325 mg PO DAILY #30 tab 08/10/19 Elemental)] Budesonide-Formot 160-4.5 Mcg 2 puff INHALATION RT-BID #1 puff 09/15/19 [Symbicort 160-4.5 Mcg Inhaler] Pantoprazole [Protonix] 40 mg PO AC-BRKFST #30 tablet. 09/15/19 Potassium Chloride [Klor-Con 20] 20 meq PO DAILY #0 12/02/19 Aspirin 81 mg PO DAILY 30 Days #30 chew 02/01/20 Allergies Allergy/AdvReac Type Severity Reaction Status Date / Time Iodinated Contrast Media Allergy Unknown, Verified 04/02/20 20:30 POOR RENAL FUNCTIONS latex AdvReac Rash/Hives Verified 04/02/20 20:30 Penicillins AdvReac Rash/Hives Verified 04/02/20 20:30 Review of Systems ROS Statement: Those systems with pertinent positive or pertinent negative responses have been documented in the HPI. ROS Other: All systems not noted in ROS Statement are negative. Past Medical History Past Medical History: Atrial Fibrillation, Asthma, Heart Failure, COPD, Diabetes Mellitus, GERD/Reflux, Hearing Disorder / Deafness, Hypertension, Osteoarthritis (OA), Pneumonia, Renal Disease, Thyroid Disorder Additional Past Medical History / Comment(s): HOLE IN RIGHT RETINA. hiatal hernia, anemia, chronic hypoxic respiratory failure, recent pulmonary infection with pseudomonas aeruginosa confirmed via bronchoscopy and the lavage, History of Any Multi-Drug Resistant Organisms: Other MDRO Past Surgical History: Cholecystectomy, Hysterectomy Additional Past Surgical History / Comment(s): CATARACT REMOVAL LEFT EYE. Past Anesthesia/Blood Transfusion Reactions: No Reported Reaction Past Psychological History: Anxiety, Panic Disorder Smoking Status: Never smoker Past Alcohol Use History: None Reported Past Drug Use History: None Reported - Past Family History Mother Family Medical History: No Reported History General Exam Limitations: no limitations General appearance: alert, in no apparent distress, other (This is a well- developed, well-nourished elderly female patient in no acute distress. Vital signs upon presentation are temperature 98.4F, pulse 69, respirations 18, blood pressure 139/95, pulse ox 90% on room air.) Eye exam: Present: normal appearance, PERRL, EOMI. Absent: scleral icterus, conjunctival injection, periorbital swelling ENT exam: Present: normal exam, normal oropharynx, mucous membranes moist Respiratory exam: Present: wheezes (Course expiratory and inspiratory wheezing noted in all lung carrera), decreased breath sounds. Absent: respiratory distress, rales, rhonchi, stridor Cardiovascular Exam: Present: regular rate, normal rhythm, normal heart sounds. Absent: systolic murmur, diastolic murmur, rubs, gallop, clicks GI/Abdominal exam: Present: soft, normal bowel sounds. Absent: distended, tenderness, guarding, rebound, rigid Neurological exam: Present: alert, oriented X3, CN II-XII intact Psychiatric exam: Present: normal affect, normal mood Skin exam: Present: warm, dry, intact, normal color. Absent: rash Course Vital Signs 04/02/20 04/02/20 04/03/20 18:53 20:40 00:03 Temperature 98.4 F Pulse Rate 69 Respiratory 18 Rate Blood Pressure 139/95 123/100 102/60 O2 Sat by Pulse 90 L Oximetry Medical Decision Making - Medical Decision Making 74-year-old female patient with a complex past medical history presents to the emergency department today for evaluation after having a fall at home. Patient did hit her head possibly passed out. She does take Coumadin and family wanted her evaluated for possible brain bleed. Patient was on hospice, but family had the nurse come in to sign her out of hospice as they want her to have treatment. Labs reviewed and did reveal elevated white blood cell count at 16.2, hemo globin 9.8 which is stable for the patient, INR 2.7. Sodium 133, potassium 5.7, BUN 76, creatinine 2.09. Glucose is 170. Mild elevation in AST ALT. Unremarkable appearing urine. Chest x-ray did reveal CHF with possible overlying infiltrates. Given patient's elevated white blood cell count we will admit to the hospital for treatment of pneumonia. Patient will be given dose of Lasix here in the department. She does have acute kidney injury so this will be monitored carefully with Lasix administration. I did discuss the case with Dr. Gamboa, he accepted admission requested pulmonology and cardiology consults. Case discussed my attending Dr. Montiel. - Lab Data Result diagrams: 04/02/20 19:33 04/02/20 19:33 Lab Results 04/02/20 04/02/20 04/02/20 Range/Units 19:33 19:33 19:33 WBC 16.2 H (3.8-10.6) k/uL RBC 3.67 L (3.80-5.40) m/uL Hgb 9.8 L (11.4-16.0) gm/dL Hct 30.9 L (34.0-46.0) % MCV 84.1 (80.0-100.0) fL MCH 26.6 (25.0-35.0) pg MCHC 31.6 (31.0-37.0) g/dL RDW 16.7 H (11.5-15.5) % Plt Count 185 (150-450) k/uL MPV 7.1 Neutrophils % 75 % Lymphocytes % 16 % Monocytes % 7 % Eosinophils % 1 % Basophils % 0 % Neutrophils # 12.1 H (1.3-7.7) k/uL Lymphocytes # 2.6 (1.0-4.8) k/uL Monocytes # 1.2 H (0-1.0) k/uL Eosinophils # 0.2 (0-0.7) k/uL Basophils # 0.0 (0-0.2) k/uL Hypochromasia Slight Anisocytosis Slight PT 26.4 H (9.0-12.0) sec INR 2.7 H (<1.2) APTT 27.3 (22.0-30.0) sec Sodium 133 L (137-145) mmol/L Potassium 5.7 H (3.5-5.1) mmol/L Chloride 99 (98-107) mmol/L Carbon Dioxide 27 (22-30) mmol/L Anion Gap 7 mmol/L BUN 76 H (7-17) mg/dL Creatinine 2.09 H (0.52-1.04) mg/dL Est GFR (CKD-EPI)AfAm 27 (>60 ml/min/1.73 sqM) Est GFR (CKD-EPI)NonAf 23 (>60 ml/min/1.73 sqM) Glucose 170 H (74-99) mg/dL Calcium 8.5 (8.4-10.2) mg/dL Total Bilirubin 0.6 (0.2-1.3) mg/dL AST 38 H (14-36) U/L ALT 36 H (4-34) U/L Alkaline Phosphatase 71 (38-126) U/L Total Protein 6.1 L (6.3-8.2) g/dL Albumin 3.4 L (3.5-5.0) g/dL Urine Color Urine Appearance (Clear) Urine pH (5.0-8.0) Ur Specific [place] (1.001-1.035) Urine Protein (Negative) Urine Glucose (UA) (Negative) Urine Ketones (Negative) Urine Blood (Negative) Urine Nitrite (Negative) Urine Bilirubin (Negative) Urine Urobilinogen (<2.0) mg/dL Ur Leukocyte Esterase (Negative) Urine RBC (0-5) /hpf Urine WBC (0-5) /hpf Amorphous Sediment (None) /hpf Urine Bacteria (None) /hpf Hyaline Casts (0-2) /lpf 04/02/20 Range/Units 22:02 WBC (3.8-10.6) k/uL RBC (3.80-5.40) m/uL Hgb (11.4-16.0) gm/dL Hct (34.0-46.0) % MCV (80.0-100.0) fL MCH (25.0-35.0) pg MCHC (31.0-37.0) g/dL RDW (11.5-15.5) % Plt Count (150-450) k/uL MPV Neutrophils % % Lymphocytes % % Monocytes % % Eosinophils % % Basophils % % Neutrophils # (1.3-7.7) k/uL Lymphocytes # (1.0-4.8) k/uL Monocytes # (0-1.0) k/uL Eosinophils # (0-0.7) k/uL Basophils # (0-0.2) k/uL Hypochromasia Anisocytosis PT (9.0-12.0) sec INR (<1.2) APTT (22.0-30.0) sec Sodium (137-145) mmol/L Potassium (3.5-5.1) mmol/L Chloride (98-107) mmol/L Carbon Dioxide (22-30) mmol/L Anion Gap mmol/L BUN (7-17) mg/dL Creatinine (0.52-1.04) mg/dL Est GFR (CKD-EPI)AfAm (>60 ml/min/1.73 sqM) Est GFR (CKD-EPI)NonAf (>60 ml/min/1.73 sqM) Glucose (74-99) mg/dL Calcium (8.4-10.2) mg/dL Total Bilirubin (0.2-1.3) mg/dL AST (14-36) U/L ALT (4-34) U/L Alkaline Phosphatase (38-126) U/L Total Protein (6.3-8.2) g/dL Albumin (3.5-5.0) g/dL Urine Color Yellow Urine Appearance Cloudy H (Clear) Urine pH 5.0 (5.0-8.0) Ur Specific [place] 1.013 (1.001-1.035) Urine Protein 1+ H (Negative) Urine Glucose (UA) Negative (Negative) Urine Ketones Negative (Negative) Urine Blood Negative (Negative) Urine Nitrite Negative (Negative) Urine Bilirubin Negative (Negative) Urine Urobilinogen <2.0 (<2.0) mg/dL Ur Leukocyte Esterase Negative (Negative) Urine RBC 1 (0-5) /hpf Urine WBC 1 (0-5) /hpf Amorphous Sediment Rare H (None) /hpf Urine Bacteria Occasional H (None) /hpf Hyaline Casts 1 (0-2) /lpf - EKG Data -: EKG Interpreted by Me EKG Comments: EKG obtained at 0031 shows normal sinus rhythm with a ventricular rate of 70, [place] interval 142, QRS duration 112, QT 410, QTC 442. No evidence of ST elevated or depression. Disposition Clinical Impression: Pneumonia, CHF (congestive heart failure), Acute kidney injury Disposition: ADMITTED IP TO THIS HOSP Condition: Serious Decision to Admit Reason: Admit from EC Decision Date: 04/02/20 Decision Time: 23:17
--- NOTE | 2020-04-02 21:13 | XR ---
EXAMINATION TYPE: XR chest 2V DATE OF EXAM: 04/02/2020 COMPARISON: 01/30/2020. HISTORY: Cough and congestion. TECHNIQUE: Frontal and lateral views of the chest are obtained. FINDINGS: There is moderate interstitial edema with bibasilar hazy opacities. No significant pleural effusion, or pneumothorax seen. Cardiomegaly. The osseous structures are intact. IMPRESSION: CHF with superimposed infiltrates not excluded.
[2020-04-02 22:11] LABS: Amorphous Sediment,Urine Rare /hpf; Appearance,Urine Cloudy (Clear); Bacteria,Urine Occasional /hpf; Bilirubin,Urine Negative (Negative); Blood,Urine Negative (Negative); Color,Urine Yellow; Glucose,Urine (UA) Negative (Negative); Hyaline Casts,Urine 1 /lpf (0-2); Ketones,Urine Negative (Negative); Leukocyte Esterase,Urine Negative (Negative); Nitrite,Urine Negative (Negative); Protein,Urine 1+ (Negative); RBC,Urine 1 /hpf (0-5); Specific Gravity,Urine 1.013 (1.001-1.035); Urobilinogen,Urine <2.0 mg/dL (<2.0); WBC,Urine 1 /hpf (0-5)
[2020-04-02] MEDS ORDERED: ONDANSETRON 4 MG/2 ML VIAL IVP PRN (23:11)
[2020-04-02] MEDS ORDERED: NALOXONE 0.4 MG/ML 1 ML VIAL IV PRN (23:11)
[2020-04-02] MEDS ORDERED: VANCOMYCIN IV PER PHARMACY 1 EACH MISC MISCELLANE PRN (23:13)
[2020-04-02] MEDS ORDERED: AZITHROMYCIN 500 MG in SODIUM CHLORIDE 0.9% 250 ML IVPB STA (23:13)
[2020-04-02] MEDS ORDERED: VANCOMYCIN 1,250 MG in SODIUM CHLORIDE 0.9% 250 ML IVPB STA (23:17)
[2020-04-02] MEDS ORDERED: FUROSEMIDE 10 MG/ML 4 ML VIAL IV STA (23:33)
[2020-04-03] MEDS ORDERED: traMADol 50 MG TAB PO STA (00:30)
[2020-04-03] MEDS ORDERED: traMADol 50 MG TAB PO PRN ×2 (00:30→07:57)
[2020-04-03] MEDS ORDERED: TRIMETHOBENZAMIDE 100 MG/ML 2 ML VIAL IM PRN (01:47)
[2020-04-03] MEDS ORDERED: BENZONATATE 100 MG CAP PO PRN (07:57)
[2020-04-03] MEDS ORDERED: hydrALAZINE HCL 25 MG TAB PO PRN (07:57)
[2020-04-03] MEDS: ATORVASTATIN 10 MG TAB PO SCH (09:06)
[2020-04-03] MEDS: METOPROLOL TARTRATE 50 MG TAB PO SCH ×2 (09:06→22:08)
[2020-04-03] MEDS: FERROUS SULFATE 325 MG TAB PO SCH (09:06)
[2020-04-03] MEDS: CITALOPRAM HYDROBROMIDE 20 MG TAB PO SCH (09:06)
[2020-04-03] MEDS: ASPIRIN 81 MG PO SCH (09:06)
[2020-04-03] MEDS: LEVOTHYROXINE 50 MCG TAB PO SCH (09:06)
--- NOTE | 2020-04-03 09:09 | P.HPIM ---
History of Present Illness This is a pleasant 74 years old female with multiple medical problems as below. She has chronic illnesses of atrial fibrillation, asthma, chronic diastolic CHF, chronic obstructive pulmonary disease, chronic kidney disease stage III, insulin-dependent diabetes mellitus, GERD, hearing difficulty, osteoarthritis, hypothyroidism, hiatal hernia, multiple hospitalization , 9 inpatient hospitalization since last year She was recently discharged on 02/01/24 for noncardiac chest pain, one month earlier she was in the hospital for acute COPD/asthma exacerbation Patient was recently discharged from this hospital 11/26-12/01 for COPD with colonization with Pseudomonas aeruginosa and fluid overload. This time patient presents with a fall while going in and out of the bathroom, she denies syncope or dizziness. No chest pain or abdominal pain. Patient noted to be drowsy but answers questions appropriately. She keeps her eyes ana sed while talking and she looks and respiratory distress and some tachypnea with abdominal breathing. She has weak coughing, which looks wet but nothing coming up. Also patient was complaining of from feeling hot and sweating. Vitas looks stable, patient is afebrile, she is saturating 90% on 4 L oxygen via nasal cannula Labs showing mild leukocytosis of 16.2 K, INR is 2.7. BMP showing elevated creatinine 2.0 with baseline 0.8-1.3. Liver enzymes mildly elevated. Bilirubin is normal 0.6. Coronavirus not detected. Chest x-ray: CHF with superimposed infiltrates not excluded. EKG shows normal sinus rhythm at 70 bpm with no significant ST-T changes and QTC 442. Shoulder x-ray: No acute fracture or process. CT of the head: No acute process. Cervical spine Computed tomography scan: No In the emergency room patient was started on Lasix She received one dose of vancomycin. Also she was started on Zithromax. She received 1 L of normal saline Cardiology and pulmonary team were consulted i checked with pharmacy, she had cefepime before despite her penicilline allergy with rash as per documentation Review of Systems CONSTITUTIONAL: No fever, no malaise, no fatigue. HEENT: No recent visual problems or hearing problems. Denied any sore throat. CARDIOVASCULAR: No orthopnea, PND, no palpitations, no syncope. PULMONARY: No chest wall tenderness, no hemoptysis. GASTROINTESTINAL: No diarrhea, no nausea, no vomiting, no abdominal pain. Normoactive bowel sounds. NEUROLOGICAL: No headaches, no weakness, no numbness. HEMATOLOGICAL: Denies any bleeding or petechiae. GENITOURINARY: Denies any burning micturition, frequency, or urgency. MUSCULOSKELETAL/RHEUMATOLOGICAL: Denies any joint pain, swelling, or any muscle pain. ENDOCRINE: Denies any polyuria or polydipsia. Past Medical History Past Medical History: Atrial Fibrillation, Asthma, Heart Failure, COPD, Diabetes Mellitus, GERD/Reflux, Hearing Disorder / Deafness, Hypertension, Osteoarthritis (OA), Pneumonia, Renal Disease, Thyroid Disorder Additional Past Medical History / Comment(s): HOLE IN RIGHT RETINA. hiatal h ernia, anemia, chronic hypoxic respiratory failure, recent pulmonary infection with pseudomonas aeruginosa confirmed via bronchoscopy and the lavage, History of Any Multi-Drug Resistant Organisms: Other MDRO Past Surgical History: Cholecystectomy, Hysterectomy Additional Past Surgical History / Comment(s): CATARACT REMOVAL LEFT EYE. Past Anesthesia/Blood Transfusion Reactions: No Reported Reaction Past Psychological History: Anxiety, Panic Disorder Smoking Status: Never smoker Past Alcohol Use History: None Reported Past Drug Use History: None Reported - Past Family History Mother Family Medical History: No Reported History Medications and Allergies Home Medications Medication Instructions Recorded Confirmed Type ALPRAZolam [Xanax] 0.5 mg PO BID 01/16/19 04/02/20 History Alendronate Sodium [Fosamax] 70 mg PO FR 01/16/19 04/02/20 History Citalopram Hydrobromide 40 mg PO DAILY 01/16/19 04/02/20 History [Citalopram HBr] Diltiazem HCl [Diltiazem HCl 24Hr 180 mg PO DAILY 01/16/19 04/02/20 History ER] Ipratropium Nebulized [Atrovent 0.5 mg INHALATION 5XD PRN 01/16/19 04/03/20 History Nebulized 0.2 MG/ML] Levothyroxine Sodium [Synthroid] 50 mcg PO DAILY 01/16/19 04/02/20 History Losartan [Cozaar] 50 mg PO DAILY 01/16/19 04/02/20 History Lovastatin [Mevacor] 40 mg PO DAILY 01/16/19 04/02/20 History Zafirlukast [Accolate] 20 mg PO BID 01/16/19 04/02/20 History traMADol HCL 50 mg PO TID PRN 01/16/19 04/02/20 History Warfarin Sodium [Coumadin] 5 mg PO HS 06/28/19 04/02/20 History Albuterol Sulfate [Ventolin HFA] 1 - 2 puff INHALATION RT-Q6H PRN 08/07/19 04/02/20 History Loratadine [Claritin] 10 mg PO DAILY PRN 08/07/19 04/02/20 History Ferrous Sulfate [Iron (65 MG 325 mg PO DAILY #30 tab 08/10/19 04/02/20 Rx Elemental)] Insulin Regular, Human [NovoLIN R] See Protocol SQ AC-TID 09/11/19 04/02/20 History Budesonide-Formot 160-4.5 Mcg 2 puff INHALATION RT-BID #1 puff 09/15/19 04/02/20 Rx [Symbicort 160-4.5 Mcg Inhaler] Pantoprazole [Protonix] 40 mg PO AC-BRKFST #30 tablet. 09/15/19 04/02/20 Rx Multivitamins, Thera [Multivitamin 1 tab PO DAILY 11/27/19 04/02/20 History (formulary)] Potassium Chloride [Klor-Con 20] 20 meq PO DAILY #0 12/02/19 04/02/20 Rx guaiFENesin [Mucinex] 600 mg PO Q12H PRN 12/10/19 04/02/20 History Albuterol Nebulized [Ventolin 1.25 mg INHALATION RT-Q4H PRN 01/30/20 04/02/20 History Nebulized] Furosemide [Lasix] 40 mg PO BID 01/30/20 04/02/20 History hydrALAZINE HCL [Apresoline] 25 mg PO TID PRN 01/30/20 04/02/20 History Aspirin 81 mg PO DAILY 30 Days #30 chew 02/01/20 04/02/20 Rx Benzonatate [Tessalon Perles] 100 mg PO BID PRN 04/02/20 04/02/20 History Doxycycline Hyclate [Vibramycin] 100 mg PO BID 04/02/20 04/02/20 History Insulin Glargine [Lantus] 30 unit SQ DAILY 04/02/20 04/02/20 History Metoprolol Tartrate [Lopressor] 50 mg PO BID 04/02/20 04/02/20 History Allergies Allergy/AdvReac Type Severity Reaction Status Date / Time Iodinated Contrast Media Allergy Unknown, Verified 04/02/20 20:30 POOR RENAL FUNCTIONS latex AdvReac Rash/Hives Verified 04/02/20 20:30 Penicillins AdvReac Rash/Hives Verified 04/02/20 20:30 Physical Exam Vitals: Vital Signs Temp Pulse Resp BP Pulse Ox 04/03/20 07:25 76 18 139/62 90 L 04/03/20 00:03 102/60 04/02/20 20:40 123/100 04/02/20 18:53 98.4 F 69 18 139/95 90 L Intake and Output 04/02/20 04/03/20 04/03/20 22:59 06:59 14:59 Other: Weight 68.039 kg -GENERAL: The patient is alert and answers questions appropriately but drowsy she is in mild respiratory distress with abdominal breathing. Well developed, well nourished. HEENT: Pupils are round and equally reacting to light. EOMI. No scleral icterus. No conjunctival pallor. Normocephalic, atraumatic. No pharyngeal erythema. No thyromegaly. CARDIOVASCULAR: S1 and S2 present. No murmurs, rubs, or gallops. -PULMONARY: Chest is clear to auscultation, no crackles. Bilateral expiratory wheezing with prolonged expiration ABDOMEN: Soft, nontender, nondistended, normoactive bowel sounds. No palpable organomegaly. MUSCULOSKELETAL: No joint swelling or deformity. -EXTREMITIES: No cyanosis, clubbing, bilateral pitting leg edema NEUROLOGICAL: Gross neurological examination did not reveal any focal deficits. SKIN: No rashes. No petechiae Results CBC & Chem 7: 04/02/20 19:33 04/02/20 19:33 Labs: Abnormal Lab Results - Last 24 Hours (Table) 04/02/20 04/02/20 04/02/20 Range/Units 19:33 19:33 19:33 WBC 16.2 H (3.8-10.6) k/uL RBC 3.67 L (3.80-5.40) m/uL Hgb 9.8 L (11.4-16.0) gm/dL Hct 30.9 L (34.0-46.0) % RDW 16.7 H (11.5-15.5) % Neutrophils # 12.1 H (1.3-7.7) k/uL Monocytes # 1.2 H (0-1.0) k/uL PT 26.4 H (9.0-12.0) sec INR 2.7 H (<1.2) Sodium 133 L (137-145) mmol/L Potassium 5.7 H (3.5-5.1) mmol/L BUN 76 H (7-17) mg/dL Creatinine 2.09 H (0.52-1.04) mg/dL Glucose 170 H (74-99) mg/dL AST 38 H (14-36) U/L ALT 36 H (4-34) U/L Total Protein 6.1 L (6.3-8.2) g/dL Albumin 3.4 L (3.5-5.0) g/dL Urine Appearance (Clear) Urine Protein (Negative) Amorphous Sediment (None) /hpf Urine Bacteria (None) /hpf 04/02/20 Range/Units 22:02 WBC (3.8-10.6) k/uL RBC (3.80-5.40) m/uL Hgb (11.4-16.0) gm/dL Hct (34.0-46.0) % RDW (11.5-15.5) % Neutrophils # (1.3-7.7) k/uL Monocytes # (0-1.0) k/uL PT (9.0-12.0) sec INR (<1.2) Sodium (137-145) mmol/L Potassium (3.5-5.1) mmol/L BUN (7-17) mg/dL Creatinine (0.52-1.04) mg/dL Glucose (74-99) mg/dL AST (14-36) U/L ALT (4-34) U/L Total Protein (6.3-8.2) g/dL Albumin (3.5-5.0) g/dL Urine Appearance Cloudy H (Clear) Urine Protein 1+ H (Negative) Amorphous Sediment Rare H (None) /hpf Urine Bacteria Occasional H (None) /hpf Assessment and Plan Assessment: -Acute on chronic diastolic CHF with ejection fraction 50-55% -Acute (on a chronic ) hypoxic respiratory failure -Acute on Chronic bronchial asthma( chronic persistent asthma) -Possible hospital-acquired pneumonia, with previous colonization with Pseudomonas. Check aspiration -Falling without passing out -Acute kidney injury, with hyperkalemia on admission. -Type 2 diabetes mellitus: continue on Levemir at 50 units daily during course of prednisone, and then resume previous home dose once taper is completed. -Hypertension -Hypothyroidism -Possible interstitial lung disease, chronic interstitial changes present on chest x-ray -Moderate to severe chronic pulmonary hypertension -Chronic hypoxic respiratory failure 2 L nasal cannula which she uses at home -Proximal A. fib therapy, on Coumadin Plan: This is a pleasant 79 years old female who presents with CHF and possible pneumonia and MERISSA. Continue with IV Lasix. Discontinue IV vancomycin and start the patient on cefepime and check culture in blood and sputum as well as Pro- calcitonin. Also we will check serial troponin and proBNP.start the patient on Solu-Medrol 40 mg twice a day. Cardiology and pulmonary team are on consult At home she wasn't Lantus 30 units daily we will abort that Levemir 15 units daily Hold losartan. Continue with Coumadin and check INR Labs and medication were reviewed.. Continue same treatment. Continue with symptomatic treatment. Resume home medication. Monitor lytes and vitals. DVT and GI prophylaxis. Further recommendationsas per clinical course of the patient DVT prophylaxis: On Coumadin GI Prophylaxis: Ppi PT/OT: Pending Prognosis is guarded
[2020-04-03] MEDS: FUROSEMIDE 10 MG/ML 4 ML VIAL IV SCH ×2 (09:11→22:07)
[2020-04-03] MEDS: CEFEPIME 1 GM in SODIUM CHLORIDE 0.9% 50 ML IVPB SCH ×2 (09:13→22:08)
[2020-04-03] MEDS ORDERED: methylPREDNISolone SOD SUCCI 40 MG/ML 1 ML VIAL IV SCH (09:15)
[2020-04-03] MEDS: DILTIAZEM CD 180 MG CAP.ER.24H PO SCH (10:12)
[2020-04-03] MEDS: SYMBICORT 160-4.5 MCG INHALER INHALATION SCH ×2 (10:59→19:54)
[2020-04-03] MEDS: IPRATROPIUM-ALBUTEROL 3 ML NEB INHALATION SCH ×3 (11:09→19:54)
[2020-04-03 12:00] LABS: Anisocytosis Slight; Basophils % (A) 0 %; Eosinophils # (A) 0.1 k/uL (0-0.7); Eosinophils % (A) 1 %; HCT 30.5 % (34.0-46.0); HGB 9.1 gm/dL (11.4-16.0); Hypochromasia Marked; Lymphocytes # (A) 1.9 k/uL (1.0-4.8); Lymphocytes % (A) 13 %; MCH 26.1 pg (25.0-35.0); MCHC 29.8 g/dL (31.0-37.0); MCV 87.6 fL (80.0-100.0); Mean Platelet Volume 7.2; Monocytes # (A) 1.1 k/uL (0-1.0); Monocytes % (A) 7 %; Neutrophils # (A) 11.7 k/uL (1.3-7.7); Neutrophils % (A) 78 %; Platelet Count 167 k/uL (150-450); RBC 3.49 m/uL (3.80-5.40); RDW 16.7 % (11.5-15.5)
[2020-04-03] MEDS ORDERED: SODIUM CHLORIDE 0.9% 1,000 ML IV ONE (12:07)
--- NOTE | 2020-04-03 12:08 | CONS ---
ELSI Layne is a 74-year-old lady with history of atrial fibrillation with rapid ventricular rate, who presented to hospital having had a fall at home. She states that she was trying to get in and out of the bathroom, fell down, bumped her head and came in. There is no history of loss of consciousness or history of chest pain, difficulty in breathing or leg edema. She is in mild respiratory distress when I am talking to her and it seems to have cough without any productive sputum. She had a CT scan of the brain and cervical spine which were both negative for any acute pathology. Her history is significant for atrial fibrillation, chronic diastolic congestive heart failure, COPD, chronic renal insufficiency and diabetes. She actually had been in the hospital in January and follows with Dr. Pruett in my practice. She has had an echocardiogram that showed normal LV systolic function with an ejection fraction of 55% with moderate pulmonary hypertension. We have been consulted because of congestive heart failure as her chest x-ray shows pulmonary congestion. PAST MEDICAL HISTORY: Significant for persistent atrial fibrillation, asthma, congestive heart failure, COPD, diabetes, GERD, deafness, hypertension, osteoarthritis, pneumonia, renal disease. PAST SURGICAL HISTORY: Significant for cholecystectomy, hysterectomy, cataract removal. MEDICATIONS: Medications at home included Xanax, Fosamax, Cardizem, DuoNeb, levothyroxine, Cozaar, Mevacor, Coumadin, Ventolin, Claritin, insulin, Protonix, hydralazine, insulin, and Lopressor. ALLERGIES: Allergic to IV DYE, LATEX and PENICILLIN. PHYSICAL EXAMINATION: On exam, heart rate is 76 beats per minute. Blood pressure is 139/62. Respiratory rate is 18. Chest exam reveals diminished air entry at the bases with occasional rhonchi. Heart exam reveals first and second heart sounds, irregular rhythm. Ejection systolic murmur in the aortic area and a systolic murmur in the left lower sternal border. Abdomen is soft. Examination of extremities reveals mild edema bilaterally. LABS: Labs show a white cell count of 16, hemoglobin is 9.8. INR is therapeutic at 2.7. BUN is 76, creatinine is 2. Coronavirus is negative. ASSESSMENT: 1. Acute exacerbation of chronic diastolic heart failure. 2. Paroxysmal atrial fibrillation. 3. History of fall. 4. Renal insufficiency. PLAN: The patient will be treated with antibiotics, IV Lasix, Lopressor. Please continue Coumadin to maintain an INR of 2 to 2.5. We will obtain a 2D echo and adjust therapies as needed. MMRAINAL / IJN: [id number] /
--- NOTE | 2020-04-03 12:10 | P.CNPUL ---
History of Present Illness Consult date: 04/03/20 Reason for consult: dyspnea History of present illness: -year-old female patient with chronic COPD/asthma, diabetes, chronic stage III kidney disease, chronic atrial fibrillation, diastolic heart failure with multiple hospitalizations in the past due to pulmonary complications of recurrent infection including infections with Pseudomonas. Other comorbidities include hypothyroidism, hiatal hernia and obesity. The patient was recently discharged from the hospital and she had a hospitalization and she was discharged home on January [id number] , and acute exacerbation of her chronic COPD/asthma secondary to pseudomonas aeruginosa. After being treated, the patient was discharged home. The patient came in yesterday to the emergency complaining of feeling worsening shortness of breath, cough and congestion and same time her appetite was down and she was having increased hardness and sweating. The patient has been enrolled in hospice care and she has been followed up by [facility]. I reviewed the home medications and the patient was placed on high-dose prednisone that she's been taking for at least 2 months for now at a dose of 50 mg by mouth daily. She is also on DuoNeb nebulized treatments around the clock, Lantus insulin 30 units daily along with his vascular coverage. She was also being given morphine an as-needed basis for shortness of breath and breathlessness at a dose of 5 mg every fours hours on a when necessary basis. She is on tramadol for pain control and she takes warfarin as a long-term anticoagulants. While at home, she was getting progressively more debilitated. She tried to get up and she was trying to look to the bathroom and she fell. The hospice nurses end up sending her here to the hospital for further evaluation. A CAT scan of the brain was done and was negative. An x-ray of the shoulder was done that was negative. INR was at was at 2.7 and there was no evidence of any acute bleeding. During this current admission, the patient has a white cell count of 16, her electrolytes are within normal limits and a she has a creatinine of 2.0 which is above her baseline that was normal. Her bilirubin is normal at 0.6. LFTs are mildly elevated. INR was at 2.7. She was on 4l about 2 by nasal cannula pulse oxing 96%. Computed tomography scan of the brain was negative. Chest x-ray showed megaly with some mild pulmonary vascular congestion. Otherwise no other acute abnormalities of the. She was given vancomycin and Zithromax in the emergency department. Review of Systems Constitutional: Denies chills, Denies fever Eyes: denies blurred vision, denies pain Ears, nose, mouth and throat: Denies headache, Denies sore throat Cardiovascular: Denies chest pain, admits to have worsening shortness of breath Respiratory: Reports congestion, Reports dyspnea, Reports home oxygen, Reports respiratory infections, Reports wheezing, admits to have a congested cough along with wheeze Gastrointestinal: Denies abdominal pain, Denies diarrhea, Denies nausea, Denies vomiting Genitourinary: Denies dysuria, Denies hematuria Musculoskeletal: Denies myalgias Integumentary: Denies pruritus, Denies rash, and the patient had some increased redness in lower extremity bilaterally to suggest colitis more so on the left and the patient also had increased edema lower extremities bilaterally. Neurological: Denies numbness, Denies weakness Psychiatric: Denies anxiety, Denies depression Endocrine: Denies fatigue, Denies weight change Past Medical History Past Medical History: Atrial Fibrillation, Asthma, Heart Failure, COPD, Diabetes Mellitus, GERD/Reflux, Hearing Disorder / Deafness, Hypertension, Osteoarthritis (OA), Pneumonia, Renal Disease, Thyroid Disorder Additional Past Medical History / Comment(s): HOLE IN RIGHT RETINA. hiatal hernia, anemia, chronic hypoxic respiratory failure, recent pulmonary infection with pseudomonas aeruginosa confirmed via bronchoscopy and the lavage, History of Any Multi-Drug Resistant Organisms: Other MDRO Past Surgical History: Cholecystectomy, Hysterectomy Additional Past Surgical History / Comment(s): CATARACT REMOVAL LEFT EYE. Past Anesthesia/Blood Transfusion Reactions: No Reported Reaction Past Psychological History: Anxiety, Panic Disorder Smoking Status: Never smoker Past Alcohol Use History: None Reported Past Drug Use History: None Reported - Past Family History Mother Family Medical History: No Reported History Medications and Allergies Home Medications Medication Instructions Recorded Confirmed Type ALPRAZolam [Xanax] 0.5 mg PO BID 01/16/19 04/02/20 History Alendronate Sodium [Fosamax] 70 mg PO FR 01/16/19 04/02/20 History Citalopram Hydrobromide 40 mg PO DAILY 01/16/19 04/02/20 History [Citalopram HBr] Diltiazem HCl [Diltiazem HCl 24Hr 180 mg PO DAILY 01/16/19 04/02/20 History ER] Ipratropium Nebulized [Atrovent 0.5 mg INHALATION 5XD PRN 01/16/19 04/03/20 History Nebulized 0.2 MG/ML] Levothyroxine Sodium [Synthroid] 50 mcg PO DAILY 01/16/19 04/02/20 History Losartan [Cozaar] 50 mg PO DAILY 01/16/19 04/02/20 History Lovastatin [Mevacor] 40 mg PO DAILY 01/16/19 04/02/20 History Zafirlukast [Accolate] 20 mg PO BID 01/16/19 04/02/20 History traMADol HCL 50 mg PO TID PRN 01/16/19 04/02/20 History Warfarin Sodium [Coumadin] 5 mg PO HS 06/28/19 04/02/20 History Albuterol Sulfate [Ventolin HFA] 1 - 2 puff INHALATION RT-Q6H PRN 08/07/19 04/02/20 History Loratadine [Claritin] 10 mg PO DAILY PRN 08/07/19 04/02/20 History Ferrous Sulfate [Iron (65 MG 325 mg PO DAILY #30 tab 08/10/19 04/02/20 Rx Elemental)] Insulin Regular, Human [NovoLIN R] See Protocol SQ AC-TID 09/11/19 04/02/20 History Budesonide-Formot 160-4.5 Mcg 2 puff INHALATION RT-BID #1 puff 09/15/19 04/02/20 Rx [Symbicort 160-4.5 Mcg Inhaler] Pantoprazole [Protonix] 40 mg PO AC-BRKFST #30 tablet. 09/15/19 04/02/20 Rx Multivitamins, Thera [Multivitamin 1 tab PO DAILY 11/27/19 04/02/20 History (formulary)] Potassium Chloride [Klor-Con 20] 20 meq PO DAILY #0 12/02/19 04/02/20 Rx guaiFENesin [Mucinex] 600 mg PO Q12H PRN 12/10/19 04/02/20 History Albuterol Nebulized [Ventolin 1.25 mg INHALATION RT-Q4H PRN 01/30/20 04/02/20 History Nebulized] Furosemide [Lasix] 40 mg PO BID 01/30/20 04/02/20 History hydrALAZINE HCL [Apresoline] 25 mg PO TID PRN 01/30/20 04/02/20 History Aspirin 81 mg PO DAILY 30 Days #30 chew 02/01/20 04/02/20 Rx Benzonatate [Tessalon Perles] 100 mg PO TID PRN 04/02/20 04/03/20 History Doxycycline Hyclate [Vibramycin] 100 mg PO BID 04/02/20 04/02/20 History Insulin Glargine [Lantus] 30 unit SQ DAILY 04/02/20 04/02/20 History Metoprolol Tartrate [Lopressor] 50 mg PO BID 04/02/20 04/02/20 History Morphine Sulfate [Morphine Sulfate 5 mg PO HS 04/03/20 04/03/20 History Oral Soln Conc (20 MG/ML)] predniSONE 50 mg PO DAILY 04/03/20 04/03/20 History Allergies Allergy/AdvReac Type Severity Reaction Status Date / Time Iodinated Contrast Media Allergy Unknown, Verified 04/02/20 20:30 POOR RENAL FUNCTIONS latex AdvReac Rash/Hives Verified 04/02/20 20:30 Penicillins AdvReac Rash/Hives Verified 04/02/20 20:30 Physical Exam Vitals: Vital Signs Temp Pulse Resp BP Pulse Ox 04/03/20 11:19 74 04/03/20 11:12 74 04/03/20 10:13 81 04/03/20 07:25 76 18 139/62 90 L 04/03/20 00:03 102/60 04/02/20 20:40 123/100 04/02/20 18:53 98.4 F 69 18 139/95 90 L Intake and Output 04/02/20 04/03/20 04/03/20 22:59 06:59 14:59 Other: Weight 68.039 kg GENERAL EXAM: Alert, very pleasant, 74-year-old white female, on 5 L of oxygen with a pulse ox of 97%, comfortable in no apparent distress. HEAD: Normocephalic/atraumatic. EYES: Normal reaction of pupils, equal size. Conjunctiva pink, sclera white. NOSE: Clear with pink turbinates. THROAT: No erythema or exudates. NECK: No masses, no JVD, no thyroid enlargement, no adenopathy. CHEST: No chest wall deformity. Symmetrical expansion. LUNGS: Equal air entry with some scattered wheezes and rhonchi CVS: Regular rate and rhythm, normal S1 and S2, no gallops, no murmurs, no rubs ABDOMEN: Soft, nontender. No hepatosplenomegaly, normal bowel sounds, no guarding or rigidity. EXTREMITIES: No clubbing, chronic venous stasis changes involving lower extremities, and increase pretibial edema, no cyanosis, 2+ pulses and upper and lower extremities. There may be also some cellulitis in the lower extremities more so on the left as the area between the ankle and the knee on the left is quite warm and erythematous. No open wounds or sores. MUSCULOSKELETAL: Muscle strength and tone normal. SPINE: No scoliosis or deformity SKIN: No rashes CENTRAL NERVOUS SYSTEM: Alert and oriented -3. No focal deficits, tone is normal in all 4 extremities. PSYCHIATRIC: Alert and oriented -3. Appropriate affect. Intact judgment and insight. Results - Laboratory Findings CBC and BMP: 04/02/20 19:33 04/02/20 19:33 PT/INR, D-dimer PT 26.4 sec (9.0-12.0) H 04/02/20 19:33 INR 2.7 (<1.2) H 04/02/20 19:33 Abnormal lab findings: Abnormal Labs 04/02/20 04/02/20 04/02/20 19:33 19:33 19:33 WBC 16.2 H RBC 3.67 L Hgb 9.8 L Hct 30.9 L RDW 16.7 H Neutrophils # 12.1 H Monocytes # 1.2 H PT 26.4 H INR 2.7 H Sodium 133 L Potassium 5.7 H BUN 76 H Creatinine 2.09 H Glucose 170 H AST 38 H ALT 36 H Total Protein 6.1 L Albumin 3.4 L Urine Appearance Urine Protein Amorphous Sediment Urine Bacteria 04/02/20 22:02 WBC RBC Hgb Hct RDW Neutrophils # Monocytes # PT INR Sodium Potassium BUN Creatinine Glucose AST ALT Total Protein Albumin Urine Appearance Cloudy H Urine Protein 1+ H Amorphous Sediment Rare H Urine Bacteria Occasional H - Diagnostic Findings Chest x-ray: image reviewed Assessment and Plan Plan: 1. Exacerbation of chronic COPD/asthma with chronic colonization/infection with pseudomonas aeruginosa. His chronic respiratory insufficiency. She has chronic cough and congestion. No evidence of any new pulmonary infiltrates or pneumonias that there is an obvious concern for pseudomonal reactivation 2 recurrent multiple respiratory infections including infections with pseudomonas aeruginosa cultures done previous hospitalizations 3 chronic bronchial asthma 4 COPD unfortunately the patient and placed on high-dose steroids on outpatient basis and she's been developing cushingoid features 5 chronic hypoxic respiratory failure limited on oxygen 2 L per minute nasal cannula 6 paroxysmal atrial fibrillation with a therapeutic PT/INR and the cardiac rhythm is sinus mechanism, maintained on Coumadin 7 diabetes mellitus type 2, maintained on insulin Lantus 30 units. 8 hypertension 9 hypothyroidism 10 Chronic interstitial changes present on the chest x-ray likely related to underlying pulmonary fibrosis/scarring from previous pulmonary infections 11 chronic pulmonary hypertension moderate to severe with a PA pressure of 54, based on an echocardiogram that was done on 01/31/2020.. 12 severe weakness and inability to ambulate and the patient had a episode of fall at home without any skeletal injuries. 13 cushingoid features with long-term steroid use with a high-dose prednisone being given to her the dose of 50 mg by mouth daily 14 Enrolled hospice care Plan Start the patient IV cefepime for pseudomonal lung infections Collect sputum Gram stain and culture IV fluids 1 L bolus and 75 mL's of normal saline as maintenance and will monitor renal function Reduce the prednisone down to 20 mg by mouth daily as maintenance Resume home medications Continue warfarin and monitor the PT/INR DuoNeb nebulized treatments around the clock COVID 19 testing is been negative We'll talk again to social workers and decide what program the patient has been enrolled then. I think she has been enrolled in palliative care rather than hospice any to confirm this. Her long-term prognosis poor baseline above- mentioned comorbidities. We'll continue to follow
[2020-04-03 12:12] LABS: Albumin 3.3 g/dL (3.5-5.0); Bilirubin, Delta 0.5 mg/dL (0.0-0.2); Bilirubin,Unconjugated 0.1 mg/dL (0.0-1.1); Magnesium 2.1 mg/dL (1.6-2.3); Potassium 5.9 mmol/L (3.5-5.1); Total Bilirubin 0.6 mg/dL (0.2-1.3); Total Protein 5.9 g/dL (6.3-8.2)
[2020-04-03 12:14] LABS: INR 4.2 (<1.2)
[2020-04-03] MEDS ORDERED: WARFARIN 0.5 MG TAB PO ONE (18:00)
[2020-04-03] MEDS ORDERED: AZITHROMYCIN 500 MG in SODIUM CHLORIDE 0.9% 250 ML IVPB SCH (21:00)
[2020-04-03] MEDS ORDERED: WARFARIN 5 MG TAB PO SCH ×2 (21:00)
[2020-04-03 21:04] LABS: Glucose,Whole Blood 243 mg/dL (75-99)
--- NOTE | 2020-04-03 21:57 | US ---
EXAMINATION TYPE: US renals and bladder DATE OF EXAM: 04/03/2020 COMPARISON: NONE CLINICAL HISTORY: merissa. MERISSA. EXAM MEASUREMENTS: Right Kidney: 8.4 x 4.5 x 4.5 cm Left Kidney: 11.2 x 4.3 x 5.0 cm Right Kidney: Appears small. Hypoechoic area seen superiorly measuring 2.7 x 2.5 x 2.7, probable meghann gn cyst. Cortex appears thin. Left Kidney: Limited visibility of lower pole. Cortex appears thin. Bladder: Not seen. Bilateral Jets seen: No IMPRESSION: No bilateral hydronephrosis. Mild renal cortical thinning. Probable benign right renal cyst.
[2020-04-04 02:33] LABS: Glucose,Whole Blood 273 mg/dL (75-99)
[2020-04-04 05:55] LABS: Glucose,Whole Blood 281 mg/dL (75-99)
[2020-04-04] MEDS: PANTOPRAZOLE 40 MG TABLET PO SCH (06:52)
[2020-04-04] MEDS: LEVOTHYROXINE 50 MCG TAB PO SCH (06:52)
[2020-04-04] MEDS ORDERED: INSULIN DETEMIR (LEVEMIR) 100 UNIT/ML SYR SQ SCH (07:00)
[2020-04-04] MEDS: IPRATROPIUM-ALBUTEROL 3 ML NEB INHALATION SCH ×4 (07:18→19:58)
[2020-04-04] MEDS: SYMBICORT 160-4.5 MCG INHALER INHALATION SCH ×2 (07:18→19:58)
[2020-04-04 08:08] LABS: Calcium 7.9 mg/dL (8.4-10.2)
[2020-04-04 08:10] LABS: Anisocytosis Slight; Basophils % (A) 0 %; Eosinophils % (A) 0 %; HCT 32.5 % (34.0-46.0); HGB 9.8 gm/dL (11.4-16.0); Hypochromasia Marked; Lymphocytes # (A) 1.3 k/uL (1.0-4.8); Lymphocytes % (A) 8 %; MCH 27.3 pg (25.0-35.0); MCV 90.8 fL (80.0-100.0); Mean Platelet Volume 7.4; Monocytes # (A) 0.7 k/uL (0-1.0); Monocytes % (A) 4 %; Neutrophils # (A) 13.9 k/uL (1.3-7.7); Neutrophils % (A) 87 %; Platelet Count 167 k/uL (150-450); RBC 3.58 m/uL (3.80-5.40)
[2020-04-04 08:24] LABS: Prothrombin Time 72.3 sec (9.0-12.0)
[2020-04-04 08:43] LABS: INR 7.4 (<1.2)
[2020-04-04] MEDS ORDERED: PHYTONADIONE ORAL 5 MG/5 ML ORAL.SYRG PO STA (08:46)
[2020-04-04] MEDS: FUROSEMIDE 10 MG/ML 4 ML VIAL IV SCH (09:03)
[2020-04-04] MEDS: METOPROLOL TARTRATE 50 MG TAB PO SCH ×2 (09:16→20:54)
[2020-04-04] MEDS: DILTIAZEM CD 180 MG CAP.ER.24H PO SCH (09:16)
[2020-04-04] MEDS: CEFEPIME 1 GM in SODIUM CHLORIDE 0.9% 50 ML IVPB SCH ×2 (09:17→20:54)
[2020-04-04] MEDS: ASPIRIN 81 MG PO SCH (09:17)
[2020-04-04] MEDS: ATORVASTATIN 10 MG TAB PO SCH (09:17)
[2020-04-04] MEDS: CITALOPRAM HYDROBROMIDE 20 MG TAB PO SCH (09:17)
[2020-04-04] MEDS: predniSONE 20 MG TAB PO SCH (09:18)
[2020-04-04] MEDS: FERROUS SULFATE 325 MG TAB PO SCH (09:18)
--- NOTE | 2020-04-04 11:26 | P.PN ---
Subjective Progress Note Date: 04/04/20 -year-old female patient with chronic COPD/asthma, diabetes, chronic stage III kidney disease, chronic atrial fibrillation, diastolic heart failure with multiple hospitalizations in the past due to pulmonary complications of recurrent infection including infections with Pseudomonas. Other comorbidities include hypothyroidism, hiatal hernia and obesity. The patient was recently discharged from the hospital and she had a hospitalization and she was discharged home on January [id number] , and acute exacerbation of her chronic COPD/asthma secondary to pseudomonas aeruginosa. After being treated, the patient was discharged home. The patient came in yesterday to the emergency complaining of feeling worsening shortness of breath, cough and congestion and same time her appetite was down and she was having increased hardness and sweating. The patient has been enrolled in hospice care and she has been followed up by [facility]. I reviewed the home medications and the patient was placed on high-dose prednisone that she's been taking for at least 2 months for now at a dose of 50 mg by mouth daily. She is also on DuoNeb nebulized treatments around the clock, Lantus insulin 30 units daily along with his vascular coverage. She was also being given morphine an as-needed basis for shortness of breath and breathlessness at a dose of 5 mg every fours hours on a when necessary basis. She is on tramadol for pain control and she takes warfarin as a long-term anticoagulants. While at home, she was getting progressively more debilitated. She tried to get up and she was trying to look to the bathroom and she fell. The hospice nurses end up sending her here to the hospital for further evaluation. A CAT scan of the brain was done and was negative. An x-ray of the shoulder was done that was negative. INR was at was at 2.7 and there was no evidence of any acute bleeding. During this current admission, the patient has a white cell count of 16, her electrolytes are within normal limits and a she has a creatinine of 2.0 which is above her baseline that was normal. Her bilirubin is normal at 0.6. LFTs are mildly elevated. INR was at 2.7. She was on 4l about 2 by nasal cannula pulse oxing 96%. Computed tomography scan of the brain was negative. Chest x-ray showed megaly with some mild pulmonary vascular congestion. Otherwise no other acute abnormalities of the. She was given vancomycin and Zithromax in the emergency department. On 04/04/2020, the patient sitting up on a chair. She is awake but lethargic and weak. Her PT/INR is toxic and she has a elevated INR of 7.2 and the patient is having some hematuria. Coumadin will be placed on hold and the patient will be given vitamin K. Note that INR from yesterday was at 2.7. She obviously has cushingoid features and I dropped the prednisone dose down to 20 mg a day. She was taking 50 mg for the past several weeks. She was also started on IV cefepime. Pro-calcitonin level is nonelevated. She has Been negative and her chest x-ray. No nausea vomiting or diarrhea. We also noted a ecchymotic area over the right lateral chest area extending to the right lateral abdominal area related to the recent fall. She may be having some difficulty swallowing and the patient is going to undergo a modified barium swallow. Objective - Vital Signs Vital signs: Vital Signs Temp 97.3 F L 04/04/20 04:00 Pulse 76 04/04/20 11:00 Resp 22 04/04/20 04:00 BP 127/60 04/04/20 04:00 Pulse Ox 92 L 04/04/20 04:00 Intake & Output 04/03/20 04/04/20 04/04/20 18:59 06:59 18:59 Output Total 600 Balance -600 Weight 88.5 kg Output: Urine 600 Other: Voiding Method Indwelling Catheter # Voids 0 # Bowel Movements 0 - Exam GENERAL EXAM: Alert, very pleasant, 74-year-old white female, on 5 L of oxygen with a pulse ox of 97%, comfortable in no apparent distress. HEAD: Normocephalic/atraumatic. EYES: Normal reaction of pupils, equal size. Conjunctiva pink, sclera white. NOSE: Clear with pink turbinates. THROAT: No erythema or exudates. NECK: No masses, no JVD, no thyroid enlargement, no adenopathy. CHEST: No chest wall deformity. Symmetrical expansion. LUNGS: Equal air entry with some scattered wheezes and rhonchi CVS: Regular rate and rhythm, normal S1 and S2, no gallops, no murmurs, no rubs ABDOMEN: Soft, nontender. No hepatosplenomegaly, normal bowel sounds, no guarding or rigidity. EXTREMITIES: No clubbing, chronic venous stasis changes involving lower extremities, and increase pretibial edema, no cyanosis, 2+ pulses and upper and lower extremities. There may be also some cellulitis in the lower extremities more so on the left as the area between the ankle and the knee on the left is quite warm and erythematous. No open wounds or sores. MUSCULOSKELETAL: Muscle strength and tone normal. SPINE: No scoliosis or deformity SKIN: No rashes, areas of bruises in her right upper extremity elbow area, right lateral posterior chest and abdominal wall. No bruises over the lower extremities. CENTRAL NERVOUS SYSTEM: Alert and oriented -3. No focal deficits, tone is normal in all 4 extremities. PSYCHIATRIC: Alert and oriented -3. Appropriate affect. Intact judgment and insight. - Labs CBC & Chem 7: 04/04/20 07:07 04/04/20 07:07 Labs: Abnormal Lab Results - Last 24 Hours (Table) 04/03/20 04/03/20 04/03/20 Range/Units 11:36 11:36 11:36 WBC 15.0 H (3.8-10.6) k/uL RBC 3.49 L (3.80-5.40) m/uL Hgb 9.1 L (11.4-16.0) gm/dL Hct 30.5 L (34.0-46.0) % MCHC 29.8 L (31.0-37.0) g/dL RDW 16.7 H (11.5-15.5) % Neutrophils # 11.7 H (1.3-7.7) k/uL Monocytes # 1.1 H (0-1.0) k/uL PT (9.0-12.0) sec INR (<1.2) Sodium 133 L (137-145) mmol/L Potassium 5.9 H (3.5-5.1) mmol/L BUN 84 H (7-17) mg/dL Creatinine 2.60 H (0.52-1.04) mg/dL Glucose 162 H (74-99) mg/dL POC Glucose (mg/dL) (75-99) mg/dL Calcium 8.0 L (8.4-10.2) mg/dL Delta Bilirubin 0.5 H (0.0-0.2) mg/dL AST 39 H (14-36) U/L ALT 37 H (4-34) U/L Total Protein 5.9 L (6.3-8.2) g/dL Albumin 3.3 L (3.5-5.0) g/dL Procalcitonin 0.54 H (0.02-0.09) ng/mL 04/03/20 04/03/20 04/04/20 Range/Units 11:36 21:00 02:31 WBC (3.8-10.6) k/uL RBC (3.80-5.40) m/uL Hgb (11.4-16.0) gm/dL Hct (34.0-46.0) % MCHC (31.0-37.0) g/dL RDW (11.5-15.5) % Neutrophils # (1.3-7.7) k/uL Monocytes # (0-1.0) k/uL PT 40.0 H (9.0-12.0) sec INR 4.2 H (<1.2) Sodium (137-145) mmol/L Potassium (3.5-5.1) mmol/L BUN (7-17) mg/dL Creatinine (0.52-1.04) mg/dL Glucose (74-99) mg/dL POC Glucose (mg/dL) 243 H 273 H (75-99) mg/dL Calcium (8.4-10.2) mg/dL Delta Bilirubin (0.0-0.2) mg/dL AST (14-36) U/L ALT (4-34) U/L Total Protein (6.3-8.2) g/dL Albumin (3.5-5.0) g/dL Procalcitonin (0.02-0.09) ng/mL 04/04/20 04/04/20 04/04/20 Range/Units 05:49 07:07 07:07 WBC 16.0 H (3.8-10.6) k/uL RBC 3.58 L (3.80-5.40) m/uL Hgb 9.8 L (11.4-16.0) gm/dL Hct 32.5 L (34.0-46.0) % MCHC 30.0 L (31.0-37.0) g/dL RDW 17.0 H (11.5-15.5) % Neutrophils # 13.9 H (1.3-7.7) k/uL Monocytes # (0-1.0) k/uL PT (9.0-12.0) sec INR (<1.2) Sodium 135 L (137-145) mmol/L Potassium 6.0 H (3.5-5.1) mmol/L BUN 98 H (7-17) mg/dL Creatinine 3.29 H (0.52-1.04) mg/dL Glucose 272 H (74-99) mg/dL POC Glucose (mg/dL) 281 H (75-99) mg/dL Calcium 7.9 L (8.4-10.2) mg/dL Delta Bilirubin (0.0-0.2) mg/dL AST (14-36) U/L ALT (4-34) U/L Total Protein (6.3-8.2) g/dL Albumin (3.5-5.0) g/dL Procalcitonin (0.02-0.09) ng/mL 04/04/20 Range/Units 07:07 WBC (3.8-10.6) k/uL RBC (3.80-5.40) m/uL Hgb (11.4-16.0) gm/dL Hct (34.0-46.0) % MCHC (31.0-37.0) g/dL RDW (11.5-15.5) % Neutrophils # (1.3-7.7) k/uL Monocytes # (0-1.0) k/uL PT 72.3 H (9.0-12.0) sec INR 7.4 H* (<1.2) Sodium (137-145) mmol/L Potassium (3.5-5.1) mmol/L BUN (7-17) mg/dL Creatinine (0.52-1.04) mg/dL Glucose (74-99) mg/dL POC Glucose (mg/dL) (75-99) mg/dL Calcium (8.4-10.2) mg/dL Delta Bilirubin (0.0-0.2) mg/dL AST (14-36) U/L ALT (4-34) U/L Total Protein (6.3-8.2) g/dL Albumin (3.5-5.0) g/dL Procalcitonin (0.02-0.09) ng/mL Assessment and Plan Plan: 1. Exacerbation of chronic COPD/asthma with chronic colonization/infection with pseudomonas aeruginosa. His chronic respiratory insufficiency. She has chronic cough and congestion. No evidence of any new pulmonary infiltrates or pneumonias that there is an obvious concern for pseudomonal reactivation. The patient is currently on IV cefepime. The patient is receiving DuoNeb about tr eatments around the clock and she is also on prednisone 20 mg by mouth daily. I had to reduce the steroids as the patient was taking high dose of prednisone for the past several weeks. She has obvious cushingoid features and currently she is on 5 L about 2 by nasal cannula. 2 recurrent multiple respiratory infections including infections with pseudomonas aeruginosa cultures done previous hospitalizations 3 chronic bronchial asthma 4 COPD unfortunately the patient and placed on high-dose steroids on outpatient basis and she's been developing cushingoid features 5 chronic hypoxic respiratory failure limited on oxygen 2 L per minute nasal cannula, she is on 5 L for now 6 paroxysmal atrial fibrillation 7 diabetes mellitus type 2, maintained on insulin Lantus 30 units. 8 hypertension 9 hypothyroidism 10 Chronic interstitial changes present on the chest x-ray likely related to un derlying pulmonary fibrosis/scarring from previous pulmonary infections 11 chronic pulmonary hypertension moderate to severe with a PA pressure of 54, based on an echocardiogram that was done on 01/31/2020.. 12 severe weakness and inability to ambulate and the patient had a episode of fall at home without any skeletal injuries. 13 cushingoid features with long-term steroid use with a high-dose prednisone being given to her the dose of 50 mg by mouth daily 14 acute kidney injury. Creatinine is on the rise is up to 3.2. 15 Coumadin toxicity 16. She will be a secondary to 15 Plan IV cefepime for pseudomonal lung infections Collect sputum Gram stain and culture IV fluids 1 L bolus and 75 mL's of normal saline as maintenance and will monitor renal function Stop IV Lasix prednisone down to 20 mg by mouth daily as maintenance Resume home medications Stop warfarin, give vitamin K a total of 5 mg of vitamin K and monitor the PT/INR DuoNeb nebulized treatments around the clock COVID 19 testing is been negative Her long-term prognosis poor baseline above-mentioned comorbidities. Check CPK We'll continue to follow
[2020-04-04 11:57] LABS: Glucose,Whole Blood >600 mg/dL (75-99)
--- NOTE | 2020-04-04 12:09 | P.PN ---
Subjective Progress Note Date: 04/04/20 HISTORY OF PRESENT ILLNESS: 74-year-old female follows in the office with Dr. Pruett, who was admitted to the hospital secondary to exacerbation of COPD with pseudomonas infection and congestive heart failure. Patient is awake this morning but unable to communicate effectively with provider at bedside. Patient's creatinine today increased from 2.6 to 3.29. She was receiving IV di uretics which has been discontinued this morning. Patient's INR is 7.4. She is scheduled to receive vitamin K. Patient has evidence of hematuria in her Brooks catheter tubing. Coumadin is on hold PHYSICAL EXAM: VITAL SIGNS: Reviewed. GENERAL: Well-developed in no acute distress. NECK: Supple. No JVD or thyromegaly LUNGS: Respirations even and unlabored. Lungs diminished bilaterally with scattered rhonchi HEART: Regular rate and rhythm. S1 and S2 heard. EXTREMITIES: Normal range of motion. No clubbing or cyanosis. Peripheral pulses intact. 2+ bilateral lower extremity edema ASSESSMENT: Acute exacerbation of COPD with pseudomonas infection Acute exacerbation of chronic diastolic heart failure Acute kidney injury Hyperkalemia Paroxysmal atrial fibrillation, on anticoagulation with Coumadin, currently maintaining sinus mechanism Coumadin coagulopathy, INR 7.4 Hematuria PLAN: Pulmonary following. Appreciate input IV Lasix has been discontinued. Monitor kidney function. Recommend nephrology consultation Continue to hold Coumadin. Monitor INR 2-D echo has been ordered. Await results Further recommendations pending patient's course Nurse practitioner note has been reviewed by physician. Signing provider agrees with the documented findings, assessment, and plan of care. Objective - Vital Signs Vital signs: Vital Signs Temp 97.3 F L 04/04/20 04:00 Pulse 76 04/04/20 11:00 Resp 22 04/04/20 04:00 BP 127/60 04/04/20 04:00 Pulse Ox 92 L 04/04/20 04:00 Intake & Output 04/03/20 04/04/20 04/04/20 18:59 06:59 18:59 Output Total 600 Balance -600 Weight 88.5 kg Output: Urine 600 Other: Voiding Method Indwelling Catheter # Voids 0 # Bowel Movements 0 - Labs CBC & Chem 7: 04/04/20 07:07 04/04/20 07:07 Labs: Abnormal Lab Results - Last 24 Hours (Table) 04/03/20 04/03/20 04/03/20 Range/Units 11:36 11:36 11:36 WBC (3.8-10.6) k/uL RBC (3.80-5.40) m/uL Hgb (11.4-16.0) gm/dL Hct (34.0-46.0) % MCHC (31.0-37.0) g/dL RDW (11.5-15.5) % Neutrophils # (1.3-7.7) k/uL PT 40.0 H (9.0-12.0) sec INR 4.2 H (<1.2) Sodium 133 L (137-145) mmol/L Potassium 5.9 H (3.5-5.1) mmol/L BUN 84 H (7-17) mg/dL Creatinine 2.60 H (0.52-1.04) mg/dL Glucose 162 H (74-99) mg/dL POC Glucose (mg/dL) (75-99) mg/dL Calcium 8.0 L (8.4-10.2) mg/dL Delta Bilirubin 0.5 H (0.0-0.2) mg/dL AST 39 H (14-36) U/L ALT 37 H (4-34) U/L Total Protein 5.9 L (6.3-8.2) g/dL Albumin 3.3 L (3.5-5.0) g/dL Procalcitonin 0.54 H (0.02-0.09) ng/mL 04/03/20 04/04/20 04/04/20 Range/Units 21:00 02:31 05:49 WBC (3.8-10.6) k/uL RBC (3.80-5.40) m/uL Hgb (11.4-16.0) gm/dL Hct (34.0-46.0) % MCHC (31.0-37.0) g/dL RDW (11.5-15.5) % Neutrophils # (1.3-7.7) k/uL PT (9.0-12.0) sec INR (<1.2) Sodium (137-145) mmol/L Potassium (3.5-5.1) mmol/L BUN (7-17) mg/dL Creatinine (0.52-1.04) mg/dL Glucose (74-99) mg/dL POC Glucose (mg/dL) 243 H 273 H 281 H (75-99) mg/dL Calcium (8.4-10.2) mg/dL Delta Bilirubin (0.0-0.2) mg/dL AST (14-36) U/L ALT (4-34) U/L Total Protein (6.3-8.2) g/dL Albumin (3.5-5.0) g/dL Procalcitonin (0.02-0.09) ng/mL 04/04/20 04/04/20 04/04/20 Range/Units 07:07 07:07 07:07 WBC 16.0 H (3.8-10.6) k/uL RBC 3.58 L (3.80-5.40) m/uL Hgb 9.8 L (11.4-16.0) gm/dL Hct 32.5 L (34.0-46.0) % MCHC 30.0 L (31.0-37.0) g/dL RDW 17.0 H (11.5-15.5) % Neutrophils # 13.9 H (1.3-7.7) k/uL PT 72.3 H (9.0-12.0) sec INR 7.4 H* (<1.2) Sodium 135 L (137-145) mmol/L Potassium 6.0 H (3.5-5.1) mmol/L BUN 98 H (7-17) mg/dL Creatinine 3.29 H (0.52-1.04) mg/dL Glucose 272 H (74-99) mg/dL POC Glucose (mg/dL) (75-99) mg/dL Calcium 7.9 L (8.4-10.2) mg/dL Delta Bilirubin (0.0-0.2) mg/dL AST (14-36) U/L ALT (4-34) U/L Total Protein (6.3-8.2) g/dL Albumin (3.5-5.0) g/dL Procalcitonin (0.02-0.09) ng/mL 04/04/20 Range/Units 11:53 WBC (3.8-10.6) k/uL RBC (3.80-5.40) m/uL Hgb (11.4-16.0) gm/dL Hct (34.0-46.0) % MCHC (31.0-37.0) g/dL RDW (11.5-15.5) % Neutrophils # (1.3-7.7) k/uL PT (9.0-12.0) sec INR (<1.2) Sodium (137-145) mmol/L Potassium (3.5-5.1) mmol/L BUN (7-17) mg/dL Creatinine (0.52-1.04) mg/dL Glucose (74-99) mg/dL POC Glucose (mg/dL) >600 H (75-99) mg/dL Calcium (8.4-10.2) mg/dL Delta Bilirubin (0.0-0.2) mg/dL AST (14-36) U/L ALT (4-34) U/L Total Protein (6.3-8.2) g/dL Albumin (3.5-5.0) g/dL Procalcitonin (0.02-0.09) ng/mL
--- NOTE | 2020-04-04 15:41 | FL ---
Modified barium swallow. HISTORY: Dysphagia. Modified barium swallow was performed with the department of speech pathology. The patient was prese nted with various consistencies of barium. There is no evidence for aspiration or penetration. Full report is to follow from the department of speech pathology. Impression: Normal study.
[2020-04-04 16:53] LABS: Glucose,Whole Blood 413 mg/dL (75-99)
[2020-04-04] MEDS: INSULIN ASPART (NovoLOG) 100 UNIT/ML VIAL SQ SCH ×2 (17:36→20:54)
[2020-04-04] MEDS: SODIUM CHLORIDE 0.9% 1,000 ML IV SCH (17:38)
[2020-04-04] MEDS ORDERED: WARFARIN 0.5 MG TAB PO ONE (18:00)
[2020-04-04 20:44] LABS: Glucose,Whole Blood 363 mg/dL (75-99)
--- NOTE | 2020-04-05 01:33 | P.PN ---
Subjective This is a pleasant 74 years old female with multiple medical problems as below. She has chronic illnesses of atrial fibrillation, asthma, chronic diastolic CHF, chronic obstructive pulmonary disease, chronic kidney disease stage III, insulin-dependent diabetes mellitus, GERD, hearing difficulty, osteoarthritis, hypothyroidism, hiatal hernia, multiple hospitalization , 9 inpatient hospitalization since last year She was recently discharged on 02/01/24 for noncardiac chest pain, one month earlier she was in the hospital for acute COPD/asthma exacerbation Patient was recently discharged from this hospital 11/26-12/01 for COPD with colonization with Pseudomonas aeruginosa and fluid overload. This time patient presents with a fall while going in and out of the bathroom, she denies syncope or dizziness. No chest pain or abdominal pain. Patient noted to be drowsy but answers questions appropriately. She keeps her eyes closed while talking and she looks and respiratory distress and some tachypnea with abdominal breathing. She has weak coughing, which looks wet but nothing coming up. Also patient was complaining of from feeling hot and sweating. Vitas looks stable, patient is afebrile, she is saturating 90% on 4 L oxygen via nasal cannula Labs showing mild leukocytosis of 16.2 K, INR is 2.7. BMP showing elevated creatinine 2.0 with baseline 0.8-1.3. Liver enzymes mildly elevated. Bilirubin is normal 0.6. Coronavirus not detected. Chest x-ray: CHF with superimposed infiltrates not excluded. EKG shows normal sinus rhythm at 70 bpm with no significant ST-T changes and QTC 442. Shoulder x-ray: No acute fracture or process. CT of the head: No acute process. Cervical spine Computed tomography scan: No In the emergency room patient was started on Lasix She received one dose of vancomycin. Also she was started on Zithromax. She received 1 L of normal saline Cardiology and pulmonary team were consulted i checked with pharmacy, she had cefepime before despite her penicilline allergy with rash as per documentation 04/04/2020 This is a pleasant 74 years old female who presents with dyspnea, she was recently under hospice care but her daughter took her off hospice as patient confirmed to me today "They took me off hospice". Presents with hospital acquired pneumonia, patient discomfort with cefepime, she has history of Pseudomonas colonization. Also she is on prednisone 20 mg for her history of asthma with expiratory wheezing. Today she still feeling short of breath with coughing and yellowish phlegm, she is in mild respiratory distress and she can talk briefly while sitting. She reports some drowsiness but she is fully awake to time, place and person. She is saturation and 90s with oxygen 4 L/m compared to 2 L at home. Also patient passed a swallow evaluation. She was also on Lasix which was stopped and started on normal saline at 75 mL/h for worsening renal function. Potassium is stable at 6.0. Patient is continued on IV fluids and insulin which helped lower potassium. Losartan is on hold. Renal ultrasound showing no hydronephrosis, benign cyst. Check a bladder scan Patient with hyperglycemia worsened by steroids, left ureter increased to home dose of 30 aureus daily. Continue with insulin sliding scale and IV fluids Patient with history of A. fib and Coumadin with INR 7.4 today, vitamin K 2.5 mg was given, monitor INR and hemoglobin. No signs of active bleeding clinically, she has a bruise in the lower chest posteriorly which will be monitored Care was ordered. PT Review of Systems CONSTITUTIONAL: No fever, no malaise, no fatigue. HEENT: No recent visual problems or hearing problems. Denied any sore throat. CARDIOVASCULAR: No orthopnea, PND, no palpitations, no syncope. PULMONARY: No chest wall tenderness, no hemoptysis. GASTROINTESTINAL: No diarrhea, no nausea, no vomiting, no abdominal pain. Normoactive bowel sounds. NEUROLOGICAL: No headaches, no weakness, no numbness. Active Medications Generic Name Dose Route Start Last Admin Trade Name Freq PRN Reason Stop Dose Admin Albuterol/Ipratropium 3 ml 04/03/20 12:00 04/04/20 19:58 Ipratropium-Albuterol 3 Ml Neb INHALATION 3 ml RT-QID JS Administration Albuterol/Ipratropium 3 ml 04/03/20 11:04 Ipratropium-Albuterol 3 Ml Neb INHALATION RT-Q2H PRN Shortness Of Breath Or Wheezing Alprazolam 0.5 mg 04/03/20 07:57 Alprazolam 0.5 Mg Tab PO BID PRN Anxiety Aspirin 81 mg 04/03/20 09:00 04/04/20 09:17 Aspirin 81 Mg PO 81 mg DAILY JS Administration Atorvastatin Calcium 10 mg 04/03/20 09:00 04/04/20 09:17 Atorvastatin 10 Mg Tab PO 10 mg DAILY JS Administration Benzonatate 100 mg 04/03/20 07:57 Benzonatate 100 Mg Cap PO BID PRN Cough Budesonide/Formoterol Fumarate 2 puff 04/03/20 08:00 04/04/20 19:58 Symbicort 160-4.5 Mcg Inhaler INHALATION 2 puff RT-BID JS Administration Citalopram Hydrobromide 40 mg 04/03/20 09:00 04/04/20 09:17 Citalopram Hydrobromide 20 Mg Tab PO 40 mg DAILY JS Administration Diltiazem HCl 180 mg 04/03/20 09:00 04/04/20 09:16 Diltiazem Cd 180 Mg Cap.Er.24h PO 180 mg DAILY JS Administration Ferrous Sulfate 325 mg 04/03/20 09:00 04/04/20 09:18 Ferrous Sulfate 325 Mg Tab PO 325 mg DAILY JS Administration Hydralazine HCl 25 mg 04/03/20 07:57 Hydralazine Hcl 25 Mg Tab PO TID PRN Blood Pressure - High Cefepime HCl 1 gm/ Sodium 50 mls @ 12.5 mls/hr 04/03/20 09:00 04/04/20 20:54 Chloride IVPB 12.5 mls/hr Q12HR JS Administration Sodium Chloride 1,000 mls @ 75 mls/hr 04/04/20 11:30 04/04/20 17:38 Saline 0.9% IV 75 mls/hr .[id number] JS Administration Insulin Aspart 0 unit 04/04/20 17:30 04/04/20 20:54 Insulin Aspart (Novolog) 100 Unit/Ml Vial SQ 6 unit ACHS [facility] Administration Protocol Insulin Detemir 30 unit 04/05/20 07:00 Insulin Detemir (Levemir) 100 Unit/Ml Syr SQ DAILY@0700 [facility] Levothyroxine Sodium 50 mcg 04/03/20 09:00 04/04/20 06:52 Levothyroxine 50 Mcg Tab PO 50 mcg DAILY@0630 [facility] Administration Metoprolol Tartrate 50 mg 04/03/20 09:00 04/04/20 20:54 Metoprolol Tartrate 50 Mg Tab PO 50 mg BID JS Administration Miscellaneous Information 1 each 04/03/20 08:12 Warfarin Per Pharmacy MISCELLANE DIRECTED PRN Per Protocol Naloxone HCl 0.2 mg 04/02/20 23:11 Naloxone 0.4 Mg/Ml 1 Ml Vial IV Q2M PRN Opioid Reversal Ondansetron HCl 4 mg 04/02/20 23:11 Ondansetron 4 Mg/2 Ml Vial IVP Q8HR PRN Nausea And Vomiting Pantoprazole Sodium 40 mg 04/04/20 07:30 04/04/20 06:52 Pantoprazole 40 Mg Tablet PO 40 mg AC-BRKFST JS Administration Prednisone 20 mg 04/04/20 09:00 04/04/20 09:18 Prednisone 20 Mg Tab PO 20 mg DAILY JS Administration Tramadol HCl 50 mg 04/03/20 00:30 Tramadol 50 Mg Tab PO QID PRN pain Tramadol HCl 50 mg 04/03/20 07:57 Tramadol 50 Mg Tab PO TID PRN Pain Trimethobenzamide HCl 100 mg 04/03/20 01:47 Trimethobenzamide 100 Mg/Ml 2 Ml Vial IM Q6HR PRN Nausea Objective - Vital Signs Vital signs: Vital Signs Temp 97.3 F L 04/04/20 04:00 Pulse 76 04/04/20 11:00 Resp 22 04/04/20 04:00 BP 127/60 04/04/20 04:00 Pulse Ox 92 L 04/04/20 04:00 Intake & Output 04/03/20 04/04/20 04/04/20 18:59 06:59 18:59 Intake Total 125 Output Total 600 Balance -600 125 Weight 88.5 kg Intake: Oral 125 Output: Urine 600 Other: Voiding Method Indwelling Catheter # Voids 0 # Bowel Movements 0 1 - Exam -GENERAL: The patient is alert and answers questions appropriately but drowsy she is in mild respiratory distress with abdominal breathing. Well developed, well nourished. HEENT: Pupils are round and equally reacting to light. EOMI. No scleral icterus. No conjunctival pallor. Normocephalic, atraumatic. No pharyngeal erythema. No thyromegaly. CARDIOVASCULAR: S1 and S2 present. No murmurs, rubs, or gallops. -PULMONARY: Chest is clear to auscultation, no crackles. Bilateral expiratory wheezing with prolonged expiration, better than yesterday. The bruise by the size of a hand palm in the lower chest posteriorly ABDOMEN: Soft, nontender, nondistended, normoactive bowel sounds. No palpable organomegaly. MUSCULOSKELETAL: No joint swelling or deformity. -EXTREMITIES: No cyanosis, clubbing, bilateral pitting leg edema NEUROLOGICAL: Gross neurological examination did not reveal any focal deficits. SKIN: No rashes. No petechiae - Labs CBC & Chem 7: 04/04/20 07:07 04/04/20 12:06 Labs: Abnormal Lab Results - Last 24 Hours (Table) 04/03/20 04/03/20 04/04/20 Range/Units 11:36 21:00 02:31 WBC (3.8-10.6) k/uL RBC (3.80-5.40) m/uL Hgb (11.4-16.0) gm/dL Hct (34.0-46.0) % MCHC (31.0-37.0) g/dL RDW (11.5-15.5) % Neutrophils # (1.3-7.7) k/uL PT (9.0-12.0) sec INR (<1.2) Sodium (137-145) mmol/L Potassium (3.5-5.1) mmol/L BUN (7-17) mg/dL Creatinine (0.52-1.04) mg/dL Glucose (74-99) mg/dL POC Glucose (mg/dL) 243 H 273 H (75-99) mg/dL Calcium (8.4-10.2) mg/dL Procalcitonin 0.54 H (0.02-0.09) ng/mL 04/04/20 04/04/20 04/04/20 Range/Units 05:49 07:07 07:07 WBC 16.0 H (3.8-10.6) k/uL RBC 3.58 L (3.80-5.40) m/uL Hgb 9.8 L (11.4-16.0) gm/dL Hct 32.5 L (34.0-46.0) % MCHC 30.0 L (31.0-37.0) g/dL RDW 17.0 H (11.5-15.5) % Neutrophils # 13.9 H (1.3-7.7) k/uL PT (9.0-12.0) sec INR (<1.2) Sodium 135 L (137-145) mmol/L Potassium 6.0 H (3.5-5.1) mmol/L BUN 98 H (7-17) mg/dL Creatinine 3.29 H (0.52-1.04) mg/dL Glucose 272 H (74-99) mg/dL POC Glucose (mg/dL) 281 H (75-99) mg/dL Calcium 7.9 L (8.4-10.2) mg/dL Procalcitonin (0.02-0.09) ng/mL 04/04/20 04/04/20 04/04/20 Range/Units 07:07 11:53 12:06 WBC (3.8-10.6) k/uL RBC (3.80-5.40) m/uL Hgb (11.4-16.0) gm/dL Hct (34.0-46.0) % MCHC (31.0-37.0) g/dL RDW (11.5-15.5) % Neutrophils # (1.3-7.7) k/uL PT 72.3 H (9.0-12.0) sec INR 7.4 H* (<1.2) Sodium (137-145) mmol/L Potassium (3.5-5.1) mmol/L BUN (7-17) mg/dL Creatinine (0.52-1.04) mg/dL Glucose 320 H (74-99) mg/dL POC Glucose (mg/dL) >600 H (75-99) mg/dL Calcium (8.4-10.2) mg/dL Procalcitonin (0.02-0.09) ng/mL Microbiology - Last 24 Hours (Table) 04/03/20 11:36 Blood Culture - Preliminary Blood No Growth after 24 hours Assessment and Plan Assessment: -hospital-acquired pneumonia, with previous colonization with Pseudomonas. -Acute (on a chronic ) hypoxic respiratory failure -Acute bronchial asthma ( on chronic persistent asthma) -Acute kidney injury, with hyperkalemia on admission. With no hydronephrosis, prerenal causes are suspected -chronic rather than acute diastolic CHF with ejection fraction 50-55% -Coagulopathy secondary to Coumadin toxicity -Proximal A. fib therapy, on Coumadin -Falling without passing out -Type 2 diabetes mellitus: continue on Levemir at 50 units daily during course of prednisone, and then resume previous home dose once taper is completed. -Hypertension -Hypothyroidism -Possible interstitial lung disease, chronic interstitial changes present on chest x-ray -Moderate to severe chronic pulmonary hypertension -Chronic hypoxic respiratory failure 2 L nasal cannula which she uses at home Plan: This is a pleasant 79 years old female who presents with pneumonia and MERISSA. Discontinue IV Lasix, and agree with starting normal sinus 75 mL/h . Continue with cefepime and check culture in blood and sputum. Continue with prednisone 20 mg daily Also we will check serial troponin and proBNP.start the patient on Solu-Medrol 40 mg twice a day. Cardiology and pulmonary team are on consult At home she was on Lantus 30 units daily we will dose to Levemir 30 units daily Hold losartan. disContinue with Coumadin and check INR, status post vitamin K x1 Labs and medication were reviewed.. Continue same treatment. Continue with symptomatic treatment. Resume home medication. Monitor lytes and vitals. DVT and GI prophylaxis. Further recommendationsas per clinical course of the patient DVT prophylaxis: On Coumadin which is on hold due to coagulopathy. Continue with mechanical prophylaxis GI Prophylaxis: Ppi PT/OT: Pending Prognosis is guarded
[2020-04-05 06:05] LABS: Glucose,Whole Blood 276 mg/dL (75-99)
[2020-04-05] MEDS: INSULIN DETEMIR (LEVEMIR) 100 UNIT/ML SYR SQ SCH (06:52)
[2020-04-05] MEDS: INSULIN ASPART (NovoLOG) 100 UNIT/ML VIAL SQ SCH ×6 (06:52→20:43)
[2020-04-05] MEDS: PANTOPRAZOLE 40 MG TABLET PO SCH (06:52)
[2020-04-05] MEDS: LEVOTHYROXINE 50 MCG TAB PO SCH (06:52)
[2020-04-05] MEDS: SODIUM CHLORIDE 0.9% 1,000 ML IV SCH (06:53)
[2020-04-05 07:18] LABS: Calcium 7.7 mg/dL (8.4-10.2); Potassium 5.1 mmol/L (3.5-5.1)
[2020-04-05 07:19] LABS: INR 3.2 (<1.2); Prothrombin Time 30.5 sec (9.0-12.0)
[2020-04-05 07:21] LABS: Anisocytosis Slight; Basophils % (A) 0 %; Eosinophils % (A) 0 %; HCT 29.6 % (34.0-46.0); HGB 9.1 gm/dL (11.4-16.0); Hypochromasia Moderate; Lymphocytes # (A) 1.2 k/uL (1.0-4.8); Lymphocytes % (A) 11 %; MCH 26.2 pg (25.0-35.0); MCHC 30.6 g/dL (31.0-37.0); Mean Platelet Volume 7.4; Monocytes # (A) 0.6 k/uL (0-1.0); Monocytes % (A) 5 %; Neutrophils # (A) 8.8 k/uL (1.3-7.7); Neutrophils % (A) 82 %; Platelet Count 159 k/uL (150-450); RBC 3.46 m/uL (3.80-5.40); RDW 17.3 % (11.5-15.5); WBC 10.8 k/uL (3.8-10.6)
[2020-04-05 07:29] LABS: MCV 85.6 fL (80.0-100.0)
[2020-04-05] MEDS: SYMBICORT 160-4.5 MCG INHALER INHALATION SCH ×2 (07:48→20:54)
[2020-04-05] MEDS: IPRATROPIUM-ALBUTEROL 3 ML NEB INHALATION SCH ×4 (07:48→20:54)
[2020-04-05] MEDS: ATORVASTATIN 10 MG TAB PO SCH (08:12)
[2020-04-05] MEDS: CITALOPRAM HYDROBROMIDE 20 MG TAB PO SCH (08:12)
[2020-04-05] MEDS: FERROUS SULFATE 325 MG TAB PO SCH (08:12)
[2020-04-05] MEDS: METOPROLOL TARTRATE 50 MG TAB PO SCH ×2 (08:12→20:06)
[2020-04-05] MEDS: DILTIAZEM CD 180 MG CAP.ER.24H PO SCH (08:12)
[2020-04-05] MEDS: predniSONE 20 MG TAB PO SCH (08:12)
[2020-04-05] MEDS: ASPIRIN 81 MG PO SCH (08:12)
[2020-04-05] MEDS: CEFEPIME 1 GM in SODIUM CHLORIDE 0.9% 50 ML IVPB SCH ×2 (08:32→20:06)
[2020-04-05] MEDS ORDERED: FUROSEMIDE 10 MG/ML 4 ML VIAL IV STA (09:56)
--- NOTE | 2020-04-05 10:00 | P.NPCON ---
History of Present Illness - Reason for Consult acute renal failure - History of Present Illness Reason for consultation: Acute kidney injury History of present illness: Patient is a 74-year-old female seen in renal consultation for acute kidney injury. Patient presented to the hospital after she sustained a fall. Potassium level was 6 yesterday and is down to 5.1 today. She was also receiving IV Lasix which was stopped and is now maintained on normal saline at 75 mL an hour. Patient is quite edematous. She has history of diastolic CHF with moderate to severe tricuspid regurgitation and severe pulmonary hypertension. She also has history of COPD and is currently receiving steroids. She is wheezing quite a bit. No vomiting or diarrhea. She has a Brooks catheter in place. Urine output documented as 600 mL as of April 04 an additional 560 mL today. Blood pressure has been stable. No hydronephrosis noted on renal ultrasound however the right kidney was small in size at 8.47 m. She had a swallow eval done this morning which was normal. She was taking losartan outpatient and is currently held. Vital signs are stable. General: The patient appeared well nourished and normally developed. HEENT: Head exam is unremarkable. Neck is without jugular venous distension. LUNGS: Breath sounds decreased. Scattered wheezing. HEART: Rate and Rhythm are regular. ABDOMEN: Soft, nontender. Obese. EXTREMITITES: 1+ edema. Past Medical History Past Medical History: Atrial Fibrillation, Asthma, Heart Failure, COPD, Diabetes Mellitus, GERD/Reflux, Hearing Disorder / Deafness, Hypertension, Osteoarthritis (OA), Pneumonia, Renal Disease, Thyroid Disorder Additional Past Medical History / Comment(s): HOLE IN RIGHT RETINA. hiatal hernia, anemia, chronic hypoxic respiratory failure, recent pulmonary infection with pseudomonas aeruginosa confirmed via bronchoscopy and the lavage, History of Any Multi-Drug Resistant Organisms: Other MDRO Past Surgical History: Cholecystectomy, Hysterectomy Additional Past Surgical History / Comment(s): CATARACT REMOVAL LEFT EYE. Past Anesthesia/Blood Transfusion Reactions: No Reported Reaction Past Psychological History: Anxiety, Panic Disorder Smoking Status: Never smoker Past Alcohol Use History: None Reported Past Drug Use History: None Reported - Past Family History Mother Family Medical History: No Reported History Medications and Allergies Home Medications Medication Instructions Recorded Confirmed Type ALPRAZolam [Xanax] 0.5 mg PO BID 01/16/19 04/02/20 History Alendronate Sodium [Fosamax] 70 mg PO FR 01/16/19 04/02/20 History Citalopram Hydrobromide 40 mg PO DAILY 01/16/19 04/02/20 History [Citalopram HBr] Diltiazem HCl [Diltiazem HCl 24Hr 180 mg PO DAILY 01/16/19 04/02/20 History ER] Ipratropium Nebulized [Atrovent 0.5 mg INHALATION 5XD PRN 01/16/19 04/03/20 History Nebulized 0.2 MG/ML] Levothyroxine Sodium [Synthroid] 50 mcg PO DAILY 01/16/19 04/02/20 History Losartan [Cozaar] 50 mg PO DAILY 01/16/19 04/02/20 History Lovastatin [Mevacor] 40 mg PO DAILY 01/16/19 04/02/20 History Zafirlukast [Accolate] 20 mg PO BID 01/16/19 04/02/20 History traMADol HCL 50 mg PO TID PRN 01/16/19 04/02/20 History Warfarin Sodium [Coumadin] 5 mg PO HS 06/28/19 04/02/20 History Albuterol Sulfate [Ventolin HFA] 1 - 2 puff INHALATION RT-Q6H PRN 08/07/19 04/02/20 History Loratadine [Claritin] 10 mg PO DAILY PRN 08/07/19 04/02/20 History Ferrous Sulfate [Iron (65 MG 325 mg PO DAILY #30 tab 08/10/19 04/02/20 Rx Elemental)] Insulin Regular, Human [NovoLIN R] See Protocol SQ AC-TID 09/11/19 04/02/20 History Budesonide-Formot 160-4.5 Mcg 2 puff INHALATION RT-BID #1 puff 09/15/19 04/02/20 Rx [Symbicort 160-4.5 Mcg Inhaler] Pantoprazole [Protonix] 40 mg PO AC-BRKFST #30 tablet. 09/15/19 04/02/20 Rx Multivitamins, Thera [Multivitamin 1 tab PO DAILY 11/27/19 04/02/20 History (formulary)] Potassium Chloride [Klor-Con 20] 20 meq PO DAILY #0 12/02/19 04/02/20 Rx guaiFENesin [Mucinex] 600 mg PO Q12H PRN 12/10/19 04/02/20 History Albuterol Nebulized [Ventolin 1.25 mg INHALATION RT-Q4H PRN 01/30/20 04/02/20 History Nebulized] Furosemide [Lasix] 40 mg PO BID 01/30/20 04/02/20 History hydrALAZINE HCL [Apresoline] 25 mg PO TID PRN 01/30/20 04/02/20 History Aspirin 81 mg PO DAILY 30 Days #30 chew 02/01/20 04/02/20 Rx Benzonatate [Tessalon Perles] 100 mg PO TID PRN 04/02/20 04/03/20 History Doxycycline Hyclate [Vibramycin] 100 mg PO BID 04/02/20 04/02/20 History Insulin Glargine [Lantus] 30 unit SQ DAILY 04/02/20 04/02/20 History Metoprolol Tartrate [Lopressor] 50 mg PO BID 04/02/20 04/02/20 History Morphine Sulfate [Morphine Sulfate 5 mg PO HS 04/03/20 04/03/20 History Oral Soln Conc (20 MG/ML)] predniSONE 50 mg PO DAILY 04/03/20 04/03/20 History Allergies Allergy/AdvReac Type Severity Reaction Status Date / Time Iodinated Contrast Media Allergy Unknown, Verified 04/02/20 20:30 POOR RENAL FUNCTIONS latex AdvReac Rash/Hives Verified 04/02/20 20:30 Penicillins AdvReac Rash/Hives Verified 04/02/20 20:30 Physical Exam Vitals: Vital Signs Temp Pulse Pulse Resp BP Pulse Ox 04/05/20 07:59 98.5 F 72 18 141/75 100 04/05/20 07:58 74 04/05/20 07:49 72 04/05/20 03:58 98.0 F 70 18 124/67 96 04/05/20 00:00 97.8 F 72 20 143/68 96 04/04/20 20:05 69 04/04/20 19:58 68 04/04/20 19:55 98.0 F 73 20 132/60 93 L 04/04/20 16:04 64 04/04/20 16:00 98.0 F 72 20 134/81 92 L 04/04/20 15:50 64 04/04/20 14:00 72 20 04/04/20 12:00 68 20 132/64 98 04/04/20 11:00 76 04/04/20 10:50 72 Intake and Output 04/04/20 04/05/20 04/05/20 22:59 06:59 14:59 Intake Total 125 0 Output Total 560 Balance 125 -560 0 Intake: Oral 125 0 Output: Urine 560 Other: Voiding Method Indwelling Catheter Indwelling Catheter Weight 112.5 kg Results - Lab Results Most recent lab results Calcium 7.7 mg/dL (8.4-10.2) L 04/05/20 06:25 Magnesium 2.1 mg/dL (1.6-2.3) 04/03/20 11:36 04/05/20 06:25 04/05/20 06:25 Assessment and Plan Plan: Assessment: 1. Acute kidney injury secondary to ATN secondary to cardiorenal syndrome. Creatinine near 1 from Jan 2020 - 3.4 today. No hydronephrosis noted on kidney ultrasound but the right kidney is noted to be small in size. 2. Acute on chronic diastolic CHF with moderate to severe tricuspid regurgitation and severe pulmonary hypertension. 3. Diabetes mellitus. 4. Hyperkalemia secondary to acute kidney injury and hyperglycemia . Better. 5. COPD exacerbation with pseudomonas colonization. Pulmonology following. 6. Volume overload. 7. Anemia. Rule out iron deficiency. 8. Coagulopathy. INR trending down. 9. Proteinuria. Most likely secondary to underlying diabetic kidney disease. Further workup outpatient. Plan: Hep-Lock IV fluids. Check chest x-ray. Lasix 40 mg IV once today. Maintain Brooks catheter. Strict I's and O's. Avoid nephrotoxins. Continue to monitor renal function and urine output. Tight blood sugar control. Check iron studies. Thank you for the consultation. I will continue to follow the patient with you during her hospital stay.
--- NOTE | 2020-04-05 10:16 | XR ---
EXAMINATION TYPE: XR chest 1V DATE OF EXAM: 04/05/2020 COMPARISON: 04/02/2020 HISTORY: 74-year-old female shortness of breath TECHNIQUE: Single frontal view of the chest is obtained. FINDINGS: Heart remains enlarged. Mild interstitial density and mild patchy basilar opacities. No sizable effus ion. IMPRESSION: Continued cardiomegaly and suspected underlying pulmonary vascular congestion. Mild patchy bibasilar atelectasis versus mild infiltrates appear slightly increased.
--- NOTE | 2020-04-05 11:46 | P.PN ---
Subjective Progress Note Date: 04/05/20 -year-old female patient with chronic COPD/asthma, diabetes, chronic stage III kidney disease, chronic atrial fibrillation, diastolic heart failure with multiple hospitalizations in the past due to pulmonary complications of recurrent infection including infections with Pseudomonas. Other comorbidities include hypothyroidism, hiatal hernia and obesity. The patient was recently discharged from the hospital and she had a hospitalization and she was discharged home on January [id number] , and acute exacerbation of her chronic COPD/asthma secondary to pseudomonas aeruginosa. After being treated, the patient was discharged home. The patient came in yesterday to the emergency complaining of feeling worsening shortness of breath, cough and congestion and same time her appetite was down and she was having increased hardness and sweating. The patient has been enrolled in hospice care and she has been followed up by [facility][1]. I reviewed the home medications and the patient was placed on high-dose prednisone that she's been taking for at least 2 months for now at a dose of 50 mg by mouth daily. She is also on DuoNeb nebulized treatments around the clock, Lantus insulin 30 units daily along with his vascular coverage. She was also being given morphine an as-needed basis for shortness of breath and breathlessness at a dose of 5 mg every fours hours on a when necessary basis. She is on tramadol for pain control and she takes warfarin as a long-term anticoagulants. While at home, she was getting progressively more debilitated. She tried to get up and she was trying to look to the bathroom and she fell. The hospice nurses end up sending her here to the hospital for further evaluation. A CAT scan of the brain was done and was negative. An x-ray of the shoulder was done that was negative. INR was at was at 2.7 and there was no evidence of any acute bleeding. During this current admission, the patient has a white cell count of 16, her electrolytes are within normal limits and a she has a creatinine of 2.0 which is above her baseline that was normal. Her bilirubin is normal at 0.6. LFTs are mildly elevated. INR was at 2.7. She was on 4l about 2 by nasal cannula pulse oxing 96%. Computed tomography scan of the brain was negative. Chest x-ray showed megaly with some mild pulmonary vascular congestion. Otherwise no other acute abnormalities of the. She was given vancomycin and Zithromax in the emergency department. On 04/04/2020, the patient sitting up on a chair. She is awake but lethargic and weak. Her PT/INR is toxic and she has a elevated INR of 7.2 and the patient is having some hematuria. Coumadin will be placed on hold and the patient will be given vitamin K. Note that INR from yesterday was at 2.7. She obviously has cushingoid features and I dropped the prednisone dose down to 20 mg a day. She was taking 50 mg for the past several weeks. She was also started on IV cefepime. Pro-calcitonin level is nonelevated. She has Been negative and her chest x-ray. No nausea vomiting or diarrhea. We also noted a ecchymotic area over the right lateral chest area extending to the right lateral abdominal area related to the recent fall. She may be having some difficulty swallowing and the patient is going to undergo a modified barium swallow. On 04/05/2020, the patient is resting comfortably in bed. No significant respiratory distress. I feel that her breathing is slightly improved compared to yesterday. She does have a congested cough. Ongoing issues for now is the acute kidney injury. The patient was seen by nephrology. IV fluids were cut down and the patient was given a dose of Lasix. She responded that she produces approximately 400 mL of urine output. Her BUN today is 104. Creatinine is at 3.4. She was given vitamin K regarding her coagulopathy her INR is down to 3.2. No significant signs of bleeding. Hemoccult was attempted 0.8. A follow-up chest x-ray was done and shows cardiomegaly. No evidence of any airspace disease or pneumonia. The patient does have some cardiomegaly and mild pulmonary vascular congestion. Meanwhile, a repeat sputum sample is to be collected and the blood culture is negative for now. I have the patient on IV cefepime for now. She is on DuoNeb nebulized treatments around the clock. I cut down the prednisone down to 20 mg by mouth daily. Her blood sugars are unde r adequate control for now and she is on Levemir insulin. In fact her blood pressure blood sugar control is improved since her admission and she is currently on Levemir 30 units along with sliding scale coverage. Objective - Vital Signs Vital signs: Vital Signs Temp 98.5 F 04/05/20 07:59 Pulse 71 04/05/20 11:11 Resp 18 04/05/20 07:59 BP 141/75 04/05/20 07:59 Pulse Ox 100 04/05/20 07:59 Intake & Output 04/04/20 04/05/20 04/05/20 18:59 06:59 18:59 Intake Total 250 0 Output Total 560 Balance 250 -560 0 Weight 119.7 kg 112.5 kg Intake: Oral 250 0 Output: Urine 560 Other: Voiding Method Indwelling Catheter Indwelling Catheter Indwelling Catheter # Bowel Movements 1 - Exam GENERAL EXAM: Alert, very pleasant, 74-year-old white female, on 5 L of oxygen with a pulse ox of 97%, comfortable in no apparent distress. HEAD: Normocephalic/atraumatic. EYES: Normal reaction of pupils, equal size. Conjunctiva pink, sclera white. NOSE: Clear with pink turbinates. THROAT: No erythema or exudates. NECK: No masses, no JVD, no thyroid enlargement, no adenopathy. CHEST: No chest wall deformity. Symmetrical expansion. LUNGS: Equal air entry with some scattered wheezes and rhonchi CVS: Regular rate and rhythm, normal S1 and S2, no gallops, no murmurs, no rubs ABDOMEN: Soft, nontender. No hepatosplenomegaly, normal bowel sounds, no guarding or rigidity. EXTREMITIES: No clubbing, chronic venous stasis changes involving lower extremities, and increase pretibial edema, no cyanosis, 2+ pulses and upper and lower extremities. There may be also some cellulitis in the lower extremities more so on the left as the area between the ankle and the knee on the left is quite warm and erythematous. No open wounds or sores. MUSCULOSKELETAL: Muscle strength and tone normal. SPINE: No scoliosis or deformity SKIN: No rashes, areas of bruises in her right upper extremity elbow area, right lateral posterior chest and abdominal wall. No bruises over the lower extremities. CENTRAL NERVOUS SYSTEM: Alert and oriented -3. No focal deficits, tone is normal in all 4 extremities. PSYCHIATRIC: Alert and oriented -3. Appropriate affect. Intact judgment and insight. - Labs CBC & Chem 7: 04/05/20 06:25 04/05/20 06:25 Labs: Abnormal Lab Results - Last 24 Hours (Table) 04/04/20 04/04/20 04/04/20 Range/Units 11:53 12:06 16:49 WBC (3.8-10.6) k/uL RBC (3.80-5.40) m/uL Hgb (11.4-16.0) gm/dL Hct (34.0-46.0) % MCHC (31.0-37.0) g/dL RDW (11.5-15.5) % Neutrophils # (1.3-7.7) k/uL PT (9.0-12.0) sec INR (<1.2) Sodium (137-145) mmol/L BUN (7-17) mg/dL Creatinine (0.52-1.04) mg/dL Glucose 320 H (74-99) mg/dL POC Glucose (mg/dL) >600 H 413 H (75-99) mg/dL Calcium (8.4-10.2) mg/dL 04/04/20 04/05/20 04/05/20 Range/Units 20:43 06:03 06:25 WBC 10.8 H (3.8-10.6) k/uL RBC 3.46 L (3.80-5.40) m/uL Hgb 9.1 L (11.4-16.0) gm/dL Hct 29.6 L (34.0-46.0) % MCHC 30.6 L (31.0-37.0) g/dL RDW 17.3 H (11.5-15.5) % Neutrophils # 8.8 H (1.3-7.7) k/uL PT (9.0-12.0) sec INR (<1.2) Sodium (137-145) mmol/L BUN (7-17) mg/dL Creatinine (0.52-1.04) mg/dL Glucose (74-99) mg/dL POC Glucose (mg/dL) 363 H 276 H (75-99) mg/dL Calcium (8.4-10.2) mg/dL 04/05/20 04/05/20 Range/Units 06:25 06:25 WBC (3.8-10.6) k/uL RBC (3.80-5.40) m/uL Hgb (11.4-16.0) gm/dL Hct (34.0-46.0) % MCHC (31.0-37.0) g/dL RDW (11.5-15.5) % Neutrophils # (1.3-7.7) k/uL PT 30.5 H (9.0-12.0) sec INR 3.2 H (<1.2) Sodium 136 L (137-145) mmol/L BUN 104 H* (7-17) mg/dL Creatinine 3.41 H (0.52-1.04) mg/dL Glucose 257 H (74-99) mg/dL POC Glucose (mg/dL) (75-99) mg/dL Calcium 7.7 L (8.4-10.2) mg/dL Microbiology - Last 24 Hours (Table) 04/03/20 11:36 Blood Culture - Preliminary Blood No Growth after 24 hours Assessment and Plan Plan: 1. Exacerbation of chronic COPD/asthma with chronic colonization/infection with pseudomonas aeruginosa. His chronic respiratory insufficiency. She has chronic cough and congestion. No evidence of any new pulmonary infiltrates or pneumonias that there is an obvious concern for pseudomonal reactivation. The patient is currently on IV cefepime. The patient is receiving DuoNeb about treatments around the clock and she is also on prednisone 20 mg by mouth daily. I had to reduce the steroids as the patient was taking high dose of prednisone for the past several weeks. She has obvious cushingoid features and currently she is on 5 L about 2 by nasal cannula. 2 recurrent multiple respiratory infections including infections with pseudomonas aeruginosa cultures done previous hospitalizations 3 acute kidney injury in the creatinine is up to 3.41 and the BUN is also elevated and a nephrology consultation is obtained. 4 COPD / chronic bronchial asthma unfortunately the patient and placed on high- dose steroids on outpatient basis and she's been developing cushingoid features 5 chronic hypoxic respiratory failure limited on oxygen 2 L per minute nasal cannula, she is on 5 L for now 6 paroxysmal atrial fibrillation 7 diabetes mellitus type 2, maintained on insulin Lantus 30 units. 8 hypertension 9 hypothyroidism 10 Chronic interstitial changes present on the chest x-ray likely related to underlying pulmonary fibrosis/scarring from previous pulmonary infections 11 chronic pulmonary hypertension moderate to severe with a PA pressure of 54, based on an echocardiogram that was done on 01/31/2020.. 12 severe weakness and inability to ambulate and the patient had a episode of fall at home without any skeletal injuries. 13 cushingoid features with long-term steroid use with a high-dose prednisone being given to her the dose of 50 mg by mouth daily 14 acute kidney injury. Creatinine is on the rise is up to 3.2. 15 Coumadin toxicity treated in the patient's INR is down to 3.2. Plan IV cefepime for pseudomonal lung infections Collect sputum Gram stain and culture IV fluids have been switched to KVO by nephrology Stop IV Lasix prednisone down to 20 mg by mouth daily as maintenance Resume home medications monitor the PT/INR DuoNeb nebulized treatments around the clock COVID 19 testing is been negative Her long-term prognosis poor baseline above-mentioned comorbidities. 6 units of insulin regular with meals for tighter blood sugar control Program. Level is elevated and the patient was given a dose of Lasix by nephrology We'll continue to follow
[2020-04-05 11:52] LABS: Glucose,Whole Blood 268 mg/dL (75-99)
--- NOTE | 2020-04-05 12:14 | P.PN ---
Subjective Progress Note Date: 04/05/20 This is a pleasant 74-year-old female who follows in the office with Dr. Pruett. She was admitted to the hospital secondary exacerbation of COPD with Pseudomonas infection and congestive heart failure. She was previously on Coumadin with some coagulopathy INR yesterday was 7.4. Patient's had evidence of acute kidney injury. Coumadin is currently on hold and she did receive some vitamin K INR today is 3.2. BUN continues to elevate at 104 and 3.41 respectively and nephrology is on the case was ordered one dose of IV Lasix this morning. NT proBNP drawn yesterday did show improvement from previous of 6760. Upon examination patient does complain of some shortness of breath and chest congestion with loose, but unable to expectorate sputum. Complains of generalized edema. Objective - Vital Signs Vital signs: Vital Signs Temp 98.5 F 04/05/20 07:59 Pulse 71 04/05/20 11:11 Resp 18 04/05/20 07:59 BP 141/75 04/05/20 07:59 Pulse Ox 100 04/05/20 07:59 Intake & Output 04/04/20 04/05/20 04/05/20 18:59 06:59 18:59 Intake Total 250 0 Output Total 560 Balance 250 -560 0 Weight 119.7 kg 112.5 kg Intake: Oral 250 0 Output: Urine 560 Other: Voiding Method Indwelling Catheter Indwelling Catheter Indwelling Catheter # Bowel Movements 1 - Exam PHYSICAL EXAMINATION: HEENT: Head is atraumatic, normocephalic. Pupils equal, round. Neck is supple. HEART EXAMINATION: Heart sounds regular, S1 and S2 normal. CHEST EXAMINATION: Lungs reveal wheezing throughout with scattered rhonchi. No chest wall tenderness is noted on palpation or with deep breathing. ABDOMEN: Soft, nontender. Bowel sounds are heard. No organomegaly noted. EXTREMITIES: 2+ peripheral pulses with evidence of 2+ generalized peripheral edema and no calf tenderness noted. NEUROLOGIC patient is awake, alert and oriented x3. . - Labs CBC & Chem 7: 04/05/20 06:25 04/05/20 06:25 Labs: Abnormal Lab Results - Last 24 Hours (Table) 04/04/20 04/04/20 04/04/20 Range/Units 12:06 16:49 20:43 WBC (3.8-10.6) k/uL RBC (3.80-5.40) m/uL Hgb (11.4-16.0) gm/dL Hct (34.0-46.0) % MCHC (31.0-37.0) g/dL RDW (11.5-15.5) % Neutrophils # (1.3-7.7) k/uL PT (9.0-12.0) sec INR (<1.2) Sodium (137-145) mmol/L BUN (7-17) mg/dL Creatinine (0.52-1.04) mg/dL Glucose 320 H (74-99) mg/dL POC Glucose (mg/dL) 413 H 363 H (75-99) mg/dL Calcium (8.4-10.2) mg/dL 04/05/20 04/05/20 04/05/20 Range/Units 06:03 06:25 06:25 WBC 10.8 H (3.8-10.6) k/uL RBC 3.46 L (3.80-5.40) m/uL Hgb 9.1 L (11.4-16.0) gm/dL Hct 29.6 L (34.0-46.0) % MCHC 30.6 L (31.0-37.0) g/dL RDW 17.3 H (11.5-15.5) % Neutrophils # 8.8 H (1.3-7.7) k/uL PT (9.0-12.0) sec INR (<1.2) Sodium 136 L (137-145) mmol/L BUN 104 H* (7-17) mg/dL Creatinine 3.41 H (0.52-1.04) mg/dL Glucose 257 H (74-99) mg/dL POC Glucose (mg/dL) 276 H (75-99) mg/dL Calcium 7.7 L (8.4-10.2) mg/dL 04/05/20 04/05/20 Range/Units 06:25 11:48 WBC (3.8-10.6) k/uL RBC (3.80-5.40) m/uL Hgb (11.4-16.0) gm/dL Hct (34.0-46.0) % MCHC (31.0-37.0) g/dL RDW (11.5-15.5) % Neutrophils # (1.3-7.7) k/uL PT 30.5 H (9.0-12.0) sec INR 3.2 H (<1.2) Sodium (137-145) mmol/L BUN (7-17) mg/dL Creatinine (0.52-1.04) mg/dL Glucose (74-99) mg/dL POC Glucose (mg/dL) 268 H (75-99) mg/dL Calcium (8.4-10.2) mg/dL Microbiology - Last 24 Hours (Table) 04/03/20 11:36 Blood Culture - Preliminary Blood No Growth after 24 hours Assessment and Plan Assessment: #1 acute exacerbation of COPD #2 Pseudomonas pneumonia #3 acute exacerbation of chronic diastolic heart failure 4 acute kidney injury #5 hyperkalemia #6 paroxysmal atrial fibrillation, Coumadin currently on hold, maintaining sinus mechanism #7 Coumadin coagulopathy, improved with an INR of 3.2 #8 hematuria Plan: From cardiology perspective medications were reviewed we will continue to hold Coumadin at this time and monitor INR daily. Diuretics per nephrology. We will obtain results of 2-D echo. We'll continue to follow the patient and provide further recommendations accordingly. The above dictated assessment and findings were discussed with signing physician. The impression and plan of care have been directed as dictated. Loan Ann, Nurse Practitioner, acting as scribe for signing physician.
[2020-04-05 17:15] LABS: Glucose,Whole Blood 242 mg/dL (75-99)
--- NOTE | 2020-04-05 17:29 | PN ---
PROGRESS NOTE DATE OF SERVICE: 04/05/2020 INTERVAL HISTORY: This is a 74-year-old woman who was admitted with possible acute pneumonia/shortness of the breath. Patient also had renal failure. The creatinine is elevated at 3.4. The patient also complaining of generalized edema and especially left arm edema also. The INR is 3.2. Multiple consultants are following the patient closely. Blood sugars elevated up to 268 also. NovoLog 6 units were added with meals. PAST MEDICAL HISTORY: Reviewed. REVIEW OF SYSTEMS: CARDIOVASCULAR: No angina. RESPIRATORY: As mentioned earlier. GI: As mentioned earlier. : No dysuria. NERVOUS SYSTEM: No numbness or weakness. CURRENT MEDICATIONS: Reviewed and include DuoNeb q.i.d. and p.r.n., Xanax, aspirin, Lipitor, Cardizem, iron sulfate. Doses are reviewed. PHYSICAL EXAM: GENERAL: Patient is alert and oriented times three. VITAL SIGNS: Pulse 72, blood pressure 156/62, respirations 20, temperature 97.8, pulse ox 94% on 4 liters. HEENT: Conjunctivae normal. NECK: No jugular venous distention. No carotid bruits. No lymph node enlargement. RESPIRATORY: Breath sounds diminished at the bases. Bilateral scattered rhonchi and crackles. HEART: S1 and S2, muffled. ABDOMEN: Soft, no tenderness. Obese. EXTREMITIES: No edema, no swelling. NERVOUS: No focal deficits. Examination of the left arm shows swelling present. LABS: WBC 10.8, hemoglobin 9.1, sodium is 136. Chest x-ray reviewed personally by me today showed evidence of bibasilar pneumonia. ASSESSMENT: 1. Chronic obstructive pulmonary disease, bronchial asthma acute exacerbation with bibasilar pneumonia, possibly hospital acquired pneumonia with Pseudomonas. 2. Acute on chronic hypoxic respiratory failure. 3. Acute kidney injury with acute tubular necrosis. 4. Hyperkalemia on presentation. 5. Chronic diastolic congestive heart failure with ejection fraction 50-55%. 6. Coagulopathy secondary to Coumadin toxicity. 7. Paroxysmal atrial fibrillation. 8. Fall and gait dysfunction. 9. Diabetes mellitus type 2. 10.Hypertension. 11.Hypothyroidism. 12.History of lung disease possibly. 13.Moderate to severe pulmonary hypertension. 14.Chronic hypoxic respiratory failure, on home O2 at 2 L nasal cannula. RECOMMENDATIONS AND DISCUSSION: Recommend to continue current management and continue symptomatic treatment. Otherwise continue with Lasix. Continue with blood sugar monitoring. Repeat labs are noted. Guarded prognosis because of multiple complex medical issues. Further recommendations to follow. PT/INR also will be checked. Discussed with the patient who understands and agrees. MMODL / JOESN: [id number] /
[2020-04-05] MEDS ORDERED: WARFARIN 0.5 MG TAB PO ONE (18:00)
[2020-04-05 18:45] LABS: % Iron Saturation 6.16 (12.00-45.00)
[2020-04-05 20:39] LABS: Glucose,Whole Blood 270 mg/dL (75-99)
[2020-04-06] MEDS: IPRATROPIUM-ALBUTEROL 3 ML NEB INHALATION PRN (04:39)
[2020-04-06] MEDS: LEVOTHYROXINE 50 MCG TAB PO SCH (06:26)
[2020-04-06 07:11] LABS: Glucose,Whole Blood 211 mg/dL (75-99)
[2020-04-06] MEDS: INSULIN DETEMIR (LEVEMIR) 100 UNIT/ML SYR SQ SCH (07:11)
[2020-04-06] MEDS: INSULIN ASPART (NovoLOG) 100 UNIT/ML VIAL SQ SCH ×7 (07:11→21:02)
[2020-04-06] MEDS: PANTOPRAZOLE 40 MG TABLET PO SCH (07:12)
[2020-04-06] MEDS: IPRATROPIUM-ALBUTEROL 3 ML NEB INHALATION SCH ×4 (08:12→21:27)
[2020-04-06] MEDS: SYMBICORT 160-4.5 MCG INHALER INHALATION SCH ×2 (08:12→21:27)
[2020-04-06 08:19] LABS: Anisocytosis Slight; Basophils % (A) 0 %; Eosinophils % (A) 0 %; HGB 9.4 gm/dL (11.4-16.0); Hypochromasia Moderate; Lymphocytes # (A) 1.6 k/uL (1.0-4.8); Lymphocytes % (A) 17 %; MCH 26.7 pg (25.0-35.0); MCHC 31.4 g/dL (31.0-37.0); MCV 85.1 fL (80.0-100.0); Mean Platelet Volume 6.8; Monocytes # (A) 0.6 k/uL (0-1.0); Monocytes % (A) 6 %; Neutrophils # (A) 7.2 k/uL (1.3-7.7); Neutrophils % (A) 76 %; Platelet Count 170 k/uL (150-450); RBC 3.53 m/uL (3.80-5.40); RDW 17.5 % (11.5-15.5); WBC 9.5 k/uL (3.8-10.6)
[2020-04-06 08:27] LABS: Magnesium 2.3 mg/dL (1.6-2.3); Potassium 4.6 mmol/L (3.5-5.1)
[2020-04-06 08:52] LABS: INR 1.8 (<1.2); Prothrombin Time 17.7 sec (9.0-12.0)
--- NOTE | 2020-04-06 09:04 | P.PN ---
Subjective Patient is seen in follow-up for acute kidney injury. Renal function better today. Potassium level also normal. Urine output 1.6 L in the last 24 hours. She did receive a dose of IV Lasix yesterday. Currently receiving a breathing treatment. Vital signs are stable. General: The patient appeared well nourished and normally developed. HEENT: Head exam is unremarkable. LUNGS: Breath sounds decreased. Scattered wheezing. HEART: Rate and Rhythm are regular. ABDOMEN: Soft, nontender. Obese. EXTREMITITES: 1+ edema. Objective - Vital Signs Vital signs: Vital Signs Temp 97.8 F 04/06/20 04:00 Pulse 80 04/06/20 08:22 Resp 20 04/06/20 04:00 BP 168/77 04/06/20 04:00 Pulse Ox 96 04/06/20 04:00 Intake & Output 04/05/20 04/06/20 04/06/20 18:59 06:59 18:59 Intake Total 960 120 Output Total 650 1020 Balance 310 -1020 120 Weight 115.5 kg Intake: Oral 960 120 Output: Urine 650 1020 Other: Voiding Method Indwelling Catheter Indwelling Catheter - Labs CBC & Chem 7: 04/06/20 07:48 04/06/20 07:48 Labs: Abnormal Lab Results - Last 24 Hours (Table) 04/05/20 04/05/20 04/05/20 Range/Units 06:25 11:48 17:13 RBC (3.80-5.40) m/uL Hgb (11.4-16.0) gm/dL Hct (34.0-46.0) % RDW (11.5-15.5) % PT (9.0-12.0) sec INR (<1.2) BUN (7-17) mg/dL Creatinine (0.52-1.04) mg/dL Glucose (74-99) mg/dL POC Glucose (mg/dL) 268 H 242 H (75-99) mg/dL Calcium (8.4-10.2) mg/dL Iron 18 L (50-170) ug/dL % Saturation 6.16 L (12.00-45.00) 04/05/20 04/06/20 04/06/20 Range/Units 20:25 07:01 07:48 RBC 3.53 L (3.80-5.40) m/uL Hgb 9.4 L (11.4-16.0) gm/dL Hct 30.0 L (34.0-46.0) % RDW 17.5 H (11.5-15.5) % PT (9.0-12.0) sec INR (<1.2) BUN (7-17) mg/dL Creatinine (0.52-1.04) mg/dL Glucose (74-99) mg/dL POC Glucose (mg/dL) 270 H 211 H (75-99) mg/dL Calcium (8.4-10.2) mg/dL Iron (50-170) ug/dL % Saturation (12.00-45.00) 04/06/20 04/06/20 Range/Units 07:48 07:48 RBC (3.80-5.40) m/uL Hgb (11.4-16.0) gm/dL Hct (34.0-46.0) % RDW (11.5-15.5) % PT 17.7 H (9.0-12.0) sec INR 1.8 H (<1.2) BUN 96 H (7-17) mg/dL Creatinine 2.58 H (0.52-1.04) mg/dL Glucose 188 H (74-99) mg/dL POC Glucose (mg/dL) (75-99) mg/dL Calcium 8.0 L (8.4-10.2) mg/dL Iron (50-170) ug/dL % Saturation (12.00-45.00) Microbiology - Last 24 Hours (Table) 04/03/20 11:36 Blood Culture - Preliminary Blood No Growth after 48 hours Assessment and Plan Plan: Assessment: 1. Acute kidney injury secondary to ATN secondary to cardiorenal syndrome. Creatinine near 1 from Jan 2020 - peaked at 3.4 this admission and is 2.58 today. No hydronephrosis noted on kidney ultrasound but the right kidney is noted to be small in size. 2. Acute on chronic diastolic CHF with moderate to severe tricuspid regurgitation and severe pulmonary hypertension. 3. Diabetes mellitus. 4. Hyperkalemia secondary to acute kidney injury and hyperglycemia . Better. 5. COPD exacerbation with pseudomonas colonization. Pulmonology following. 6. Volume overload. 7. Anemia. Iron deficiency noted. 8. Coagulopathy. INR trending down. 9. Proteinuria. Most likely secondary to underlying diabetic kidney disease. Further workup outpatient. Plan: Add Lasix 40 mg IV daily. Maintain Brooks catheter. Strict I's and O's. Avoid nephrotoxins. Continue to monitor renal function and urine output. Tight blood sugar control. IV iron 3 doses. First dose today.
[2020-04-06] MEDS: DILTIAZEM CD 180 MG CAP.ER.24H PO SCH (09:17)
[2020-04-06] MEDS: CITALOPRAM HYDROBROMIDE 20 MG TAB PO SCH (09:17)
[2020-04-06] MEDS: ASPIRIN 81 MG PO SCH (09:17)
[2020-04-06] MEDS: METOPROLOL TARTRATE 50 MG TAB PO SCH ×2 (09:17→19:54)
[2020-04-06] MEDS: FUROSEMIDE 10 MG/ML 4 ML VIAL IV SCH (09:18)
[2020-04-06] MEDS: predniSONE 20 MG TAB PO SCH (09:18)
[2020-04-06] MEDS: SODIUM FERRIC GLUCONAT-SUCROSE 125 MG in SODIUM CHLORIDE 0.9% 100 ML IVPB SCH (09:19)
[2020-04-06] MEDS: ATORVASTATIN 10 MG TAB PO SCH (09:19)
[2020-04-06] MEDS: FERROUS SULFATE 325 MG TAB PO SCH (09:39)
[2020-04-06] MEDS: CEFEPIME 1 GM in SODIUM CHLORIDE 0.9% 50 ML IVPB SCH ×2 (10:57→21:38)
[2020-04-06 11:56] LABS: Glucose,Whole Blood 153 mg/dL (75-99)
--- NOTE | 2020-04-06 12:15 | P.PN ---
Subjective Progress Note Date: 04/06/20 Principal diagnosis: Acute exacerbation of chronic obstructive pulmonary disease and recurrent tracheobronchitis secondary to pseudomonas aeruginosa. -year-old female patient with chronic COPD/asthma, diabetes, chronic stage III kidney disease, chronic atrial fibrillation, diastolic heart failure with multiple hospitalizations in the past due to pulmonary complications of recu rrent infection including infections with Pseudomonas. Other comorbidities include hypothyroidism, hiatal hernia and obesity. The patient was recently discharged from the hospital and she had a hospitalization and she was discharged home on January [id number] , and acute exacerbation of her chronic COPD/asthma secondary to pseudomonas aeruginosa. After being treated, the patient was discharged home. The patient came in yesterday to the emergency complaining of feeling worsening shortness of breath, cough and congestion and same time her appetite was down and she was having increased hardness and sweating. The patient has been enrolled in hospice care and she has been followed up by [facility]. I reviewed the home medications and the patient was placed on high-dose prednisone that she's been taking for at least 2 months for now at a dose of 50 mg by mouth daily. She is also on DuoNeb nebulized treatments around the clock, Lantus insulin 30 units daily along with his vascular coverage. She was also being given morphine an as-needed basis for shortness of breath and breathlessness at a dose of 5 mg every fours hours on a when necessary basis. She is on tramadol for pain control and she takes warfarin as a long-term anticoagulants. While at home, she was getting progre ssively more debilitated. She tried to get up and she was trying to look to the bathroom and she fell. The hospice nurses end up sending her here to the hospital for further evaluation. A CAT scan of the brain was done and was negative. An x-ray of the shoulder was done that was negative. INR was at was at 2.7 and there was no evidence of any acute bleeding. On 04/05/2020, the patient is resting comfortably in bed. No significant respiratory distress. I feel that her breathing is slightly improved compared to yesterday. She does have a congested cough. Ongoing issues for now is the a cute kidney injury. The patient was seen by nephrology. IV fluids were cut down and the patient was given a dose of Lasix. She responded that she produces approximately 400 mL of urine output. Her BUN today is 104. Creatinine is at 3.4. She was given vitamin K regarding her coagulopathy her INR is down to 3.2. No significant signs of bleeding. Hemoccult was attempted 0.8. A follow-up chest x-ray was done and shows cardiomegaly. No evidence of any airspace disease or pneumonia. The patient does have some cardiomegaly and mild pulmonary vascular congestion. Meanwhile, a repeat sputum sample is to be collected and the blood culture is negative for now. I have the patient on IV cefepime for now. She is on DuoNeb nebulized treatments around the clock. I cut down the prednisone down to 20 mg by mouth daily. Her blood sugars are under adequate control for now and she is on Levemir insulin. In fact her blood pressure blood sugar control is improved since her admission and she is currently on Levemir 30 units along with sliding scale coverage. Reevaluated today on 04/06/2020, patient continues to have intermittent episodes of cough wheezing and shortness of breath. She is quite congested, on physical examination she has significant rhonchi and wheezes noted bilaterally. Her last chest x-ray from 2 days ago showed mild pulmonary vascular congestion, and mild patchy bibasilar atelectasis. CBC is relatively normal her INR is 1.8 electrolytes are normal BUN is 96 creatinine is 2.58. Patient remains on bronchodilators, remains on prednisone 20 mg daily, and she is on cefepime for her pseudomonal infection Objective - Vital Signs Vital signs: Vital Signs Temp 97.6 F 04/06/20 11:01 Pulse 78 04/06/20 11:26 Resp 18 04/06/20 11:26 BP 154/67 04/06/20 11:01 Pulse Ox 98 04/06/20 11:14 Intake & Output 04/05/20 04/06/20 04/06/20 18:59 06:59 18:59 Intake Total 960 120 Output Total 650 1020 Balance 310 -1020 120 Weight 115.5 kg Intake: Oral 960 120 Output: Urine 650 1020 Other: Voiding Method Indwelling Catheter Indwelling Catheter Indwelling Catheter - Exam GENERAL EXAM: 74-year-old female on few liters nasal cannula, in no distress. HEENT: PERRLA, EOMI, nonicteric, no neck masses, no JVD, no stridor, moist mucous membranes CHEST: No chest wall deformity. Symmetrical expansion. LUNGS: Diffuse rhonchi and wheezes noted bilaterally. CVS: Regular rate and rhythm, normal S1 and S2, no gallops, no murmurs, no rubs ABDOMEN: Soft, nontender. No hepatosplenomegaly, normal bowel sounds, no guarding or rigidity. EXTREMITIES: No clubbing, chronic venous stasis changes involving lower ext remities, and increase pretibial edema, no cyanosis, 2+ pulses and upper and lower extremities. There may be also some cellulitis in the lower extremities more so on the left as the area between the ankle and the knee on the left is quite warm and erythematous. No open wounds or sores. MUSCULOSKELETAL: Muscle strength and tone normal. SPINE: No scoliosis or deformity SKIN: No rashes, areas of bruises in her right upper extremity elbow area, right lateral posterior chest and abdominal wall. No bruises over the lower extremities. CENTRAL NERVOUS SYSTEM: Alert and oriented -3. No focal deficits, tone is normal in all 4 extremities. PSYCHIATRIC: Alert and oriented -3. Appropriate affect. Intact judgment and insight. - Labs CBC & Chem 7: 04/06/20 07:48 04/06/20 07:48 Labs: Abnormal Lab Results - Last 24 Hours (Table) 04/05/20 04/05/20 04/05/20 Range/Units 06:25 17:13 20:25 RBC (3.80-5.40) m/uL Hgb (11.4-16.0) gm/dL Hct (34.0-46.0) % RDW (11.5-15.5) % PT (9.0-12.0) sec INR (<1.2) BUN (7-17) mg/dL Creatinine (0.52-1.04) mg/dL Glucose (74-99) mg/dL POC Glucose (mg/dL) 242 H 270 H (75-99) mg/dL Calcium (8.4-10.2) mg/dL Iron 18 L (50-170) ug/dL % Saturation 6.16 L (12.00-45.00) 04/06/20 04/06/20 04/06/20 Range/Units 07:01 07:48 07:48 RBC 3.53 L (3.80-5.40) m/uL Hgb 9.4 L (11.4-16.0) gm/dL Hct 30.0 L (34.0-46.0) % RDW 17.5 H (11.5-15.5) % PT (9.0-12.0) sec INR (<1.2) BUN 96 H (7-17) mg/dL Creatinine 2.58 H (0.52-1.04) mg/dL Glucose 188 H (74-99) mg/dL POC Glucose (mg/dL) 211 H (75-99) mg/dL Calcium 8.0 L (8.4-10.2) mg/dL Iron (50-170) ug/dL % Saturation (12.00-45.00) 04/06/20 04/06/20 Range/Units 07:48 11:55 RBC (3.80-5.40) m/uL Hgb (11.4-16.0) gm/dL Hct (34.0-46.0) % RDW (11.5-15.5) % PT 17.7 H (9.0-12.0) sec INR 1.8 H (<1.2) BUN (7-17) mg/dL Creatinine (0.52-1.04) mg/dL Glucose (74-99) mg/dL POC Glucose (mg/dL) 153 H (75-99) mg/dL Calcium (8.4-10.2) mg/dL Iron (50-170) ug/dL % Saturation (12.00-45.00) Microbiology - Last 24 Hours (Table) 04/03/20 11:36 Blood Culture - Preliminary Blood No Growth after 48 hours Assessment and Plan Assessment: Impression: Acute exacerbation of COPD Acute tracheobronchitis secondary to pseudomonas aeruginosa. Acute on chronic hypoxic respiratory failure secondary to above. Acute on chronic kidney injury, eating addressed by nephrology on the case. Paroxysmal atrial fibrillation. Chronic hypoxic arrest or failure maintained on option at 2 L/m. Type 2 diabetes. Benign essential hypertension. Hypothyroidism. Secondary pulmonary hypertension. Medical debility, patient is unable to ambulate on her own at home. Recommendation: Continue antibiotics, patient is on cefepime. Continue bronchodilators. Continue close monitoring of renal status. Continue DuoNeb. Continue Coumadin. Hold diuretics. We'll continue to follow not quite ready for discharge planning at this point. Time with Patient: Less than 30
--- NOTE | 2020-04-06 13:52 | P.PN ---
Subjective Progress Note Date: 04/06/20 This is a pleasant 74-year-old female who follows in the office with Dr. Pruett. She was admitted to the hospital secondary exacerbation of COPD with Pseudomonas infection and congestive heart failure. She was previously on Coumadin with some coagulopathy INR yesterday was 7.4. Patient's had evidence of acute kidney injury. Coumadin is currently on hold and she did receive some vitamin K INR today is 3.2. BUN continues to elevate at 104 and 3.41 respectively and nephrology is on the case was ordered one dose of IV Lasix this morning. NT proBNP drawn yesterday did show improvement from previous of 6760. Upon examination patient does complain of some shortness of breath and chest congestion with loose, but unable to expectorate sputum. Complains of generalized edema. 04/06/2020 Patient was seen and examined resting comfortably in bed. She appears much more comfortable today. Continues to have some shortness of breath and cough but has less edema. She's received another dose of IV Lasix this morning ordered by nephrology. Renal function has improved today with a BUN of 96 and creatinine 2.58. Vital signs are stable. Objective - Vital Signs Vital signs: Vital Signs Temp 97.6 F 04/06/20 11:01 Pulse 78 04/06/20 11:26 Resp 18 04/06/20 11:26 BP 154/67 04/06/20 11:01 Pulse Ox 98 04/06/20 11:14 Intake & Output 04/05/20 04/06/20 04/06/20 18:59 06:59 18:59 Intake Total 960 120 Output Total 650 1020 Balance 310 -1020 120 Weight 115.5 kg Intake: Oral 960 120 Output: Urine 650 1020 Other: Voiding Method Indwelling Catheter Indwelling Catheter Indwelling Catheter - Exam PHYSICAL EXAMINATION: HEENT: Head is atraumatic, normocephalic. Pupils equal, round. Neck is supple. HEART EXAMINATION: Heart sounds regular, S1 and S2 normal. CHEST EXAMINATION: Lungs reveal coarse wheezing throughout with scattered rhonchi. No chest wall tenderness is noted on palpation or with deep breathing. ABDOMEN: Soft, nontender. Bowel sounds are heard. No organomegaly noted. EXTREMITIES: 2+ peripheral pulses with evidence of 1-2+ generalized peripheral edema and no calf tenderness noted. NEUROLOGIC patient is awake, alert and oriented x3. . - Labs CBC & Chem 7: 04/06/20 07:48 04/06/20 07:48 Labs: Abnormal Lab Results - Last 24 Hours (Table) 04/05/20 04/05/20 04/05/20 Range/Units 06:25 17:13 20:25 RBC (3.80-5.40) m/uL Hgb (11.4-16.0) gm/dL Hct (34.0-46.0) % RDW (11.5-15.5) % PT (9.0-12.0) sec INR (<1.2) BUN (7-17) mg/dL Creatinine (0.52-1.04) mg/dL Glucose (74-99) mg/dL POC Glucose (mg/dL) 242 H 270 H (75-99) mg/dL Calcium (8.4-10.2) mg/dL Iron 18 L (50-170) ug/dL % Saturation 6.16 L (12.00-45.00) 04/06/20 04/06/20 04/06/20 Range/Units 07:01 07:48 07:48 RBC 3.53 L (3.80-5.40) m/uL Hgb 9.4 L (11.4-16.0) gm/dL Hct 30.0 L (34.0-46.0) % RDW 17.5 H (11.5-15.5) % PT (9.0-12.0) sec INR (<1.2) BUN 96 H (7-17) mg/dL Creatinine 2.58 H (0.52-1.04) mg/dL Glucose 188 H (74-99) mg/dL POC Glucose (mg/dL) 211 H (75-99) mg/dL Calcium 8.0 L (8.4-10.2) mg/dL Iron (50-170) ug/dL % Saturation (12.00-45.00) 04/06/20 04/06/20 Range/Units 07:48 11:55 RBC (3.80-5.40) m/uL Hgb (11.4-16.0) gm/dL Hct (34.0-46.0) % RDW (11.5-15.5) % PT 17.7 H (9.0-12.0) sec INR 1.8 H (<1.2) BUN (7-17) mg/dL Creatinine (0.52-1.04) mg/dL Glucose (74-99) mg/dL POC Glucose (mg/dL) 153 H (75-99) mg/dL Calcium (8.4-10.2) mg/dL Iron (50-170) ug/dL % Saturation (12.00-45.00) Microbiology - Last 24 Hours (Table) 04/03/20 11:36 Blood Culture - Preliminary Blood No Growth after 48 hours Assessment and Plan Assessment: #1 acute exacerbation of COPD #2 Pseudomonas pneumonia #3 acute exacerbation of chronic diastolic heart failure 4 acute kidney injury #5 hyperkalemia #6 paroxysmal atrial fibrillation, Coumadin currently on hold, maintaining sinus mechanism #7 Coumadin coagulopathy, improved with an INR of 3.2 #8 hematuria Plan: From cardiology perspective we will give the patient 2.5 mg of Coumadin tonight. Continue monitor INR daily. We'll continue to follow the patient and provide further recommendations accordingly. The above dictated assessment and findings were discussed with signing physician. The impression and plan of care have been directed as dictated. Loan Ann, Nurse Practitioner, acting as scribe for signing physician.
[2020-04-06 17:09] LABS: Glucose,Whole Blood 203 mg/dL (75-99)
[2020-04-06] MEDS ORDERED: WARFARIN 2.5 MG TAB PO ONE (18:00)
--- NOTE | 2020-04-06 19:34 | PN ---
PROGRESS NOTE DATE OF SERVICE: 04/06/2020 This 74-year-old woman who was admitted with pneumonia, shortness of breath also had renal failure. Patient also had generalized edema also. The creatinine is elevated. Nephrology is following the patient closely. The patient is on 40 mg IV Lasix daily at this time. Patient being closely monitored. Multiple consultants are following the patient closely. Creatinine is 2.58 today. Past medical history reviewed. REVIEW OF SYSTEMS: CARDIOVASCULAR: No angina. RESPIRATORY: As mentioned earlier. GI: As mentioned earlier. : No dysuria. NERVOUS SYSTEM: No numbness, weakness. CURRENT MEDICATIONS: Reviewed and include: DuoNeb, Xanax, aspirin, cefepime, NovoLog. Doses are reviewed. PHYSICAL EXAMINATION: Patient is alert and orient x3. Pulse 80, blood pressure 165/70, respiration 20, temperature 97.8, pulse ox 99% on 4 L. HEENT is conjunctivae normal. NECK is no jugular venous distention. CARDIOVASCULAR system: S1, S2 muffled. RESPIRATORY: Breath sounds diminished in the bases. Bilateral scattered rhonchi and crackles. ABDOMEN: Soft, nontender. LEGS: Bilateral leg edema. Arms also bilateral edema present. NERVOUS SYSTEM: No focal deficits. LABS: WBC 9.3, hemoglobin 9.5. INR 1.8. Creatinine is 2.58. ASSESSMENT: 1. Chronic obstructive pulmonary disease, bronchial asthma acute exacerbation with bibasilar pneumonia possibly hospital-acquired pneumonia with Pseudomonas. 2. Acute on chronic hypoxic respiratory failure. 3. Acute kidney injury with acute tubular necrosis. 4. Hyperkalemia on presentation secondary to renal failure. 5. Chronic diastolic congestive heart failure, ejection fraction 50-55 percent. 6. Coagulopathy secondary to Coumadin toxicity. 7. Paroxysmal atrial fibrillation. 8. Fall and gait dysfunction. 9. Diabetes mellitus type 2. 10.Hypertension. 11.Hypothyroidism. 12.History of interstitial lung disease possibly. 13.Moderate to severe pulmonary hypertension. 14.Chronic hypoxic respiratory failure on O2 2 L nasal cannula. 15.FULL CODE. 16.Obesity with body mass of 39.9. RECOMMENDATIONS AND DISCUSSION: In this 74-year-old woman who presented with multiple medical issues, we will monitor the patient closely, continue the current medications, management and symptomatic treatment. Continue with the Cefepime. Continue the rest of medication and bronchodilators. Continue the Lasix. Continue the prednisone. Continue with Coumadin. Prognosis guarded because of multiple complex medical issues and further recommendations to follow. MMODL / IJN: [id number] /
[2020-04-06 20:40] LABS: Glucose,Whole Blood 252 mg/dL (75-99)
[2020-04-06] MEDS: ALPRAZolam 0.5 MG TAB PO PRN (21:13)
[2020-04-07] MEDS: PANTOPRAZOLE 40 MG TABLET PO SCH (06:31)
[2020-04-07] MEDS: LEVOTHYROXINE 50 MCG TAB PO SCH (06:31)
[2020-04-07 06:59] LABS: Glucose,Whole Blood 207 mg/dL (75-99)
[2020-04-07] MEDS: INSULIN ASPART (NovoLOG) 100 UNIT/ML VIAL SQ SCH ×7 (07:04→20:23)
[2020-04-07] MEDS: INSULIN DETEMIR (LEVEMIR) 100 UNIT/ML SYR SQ SCH (07:05)
[2020-04-07] MEDS: IPRATROPIUM-ALBUTEROL 3 ML NEB INHALATION SCH ×4 (08:47→19:30)
[2020-04-07] MEDS: SYMBICORT 160-4.5 MCG INHALER INHALATION SCH ×2 (08:47→19:31)
[2020-04-07 09:44] LABS: Calcium 8.2 mg/dL (8.4-10.2); Magnesium 2.1 mg/dL (1.6-2.3); Potassium 4.4 mmol/L (3.5-5.1)
[2020-04-07 09:52] LABS: INR 1.5 (<1.2); Prothrombin Time 15.1 sec (9.0-12.0)
[2020-04-07] MEDS: ASPIRIN 81 MG PO SCH (10:04)
[2020-04-07] MEDS: METOPROLOL TARTRATE 50 MG TAB PO SCH ×2 (10:04→20:37)
[2020-04-07] MEDS: predniSONE 20 MG TAB PO SCH (10:05)
[2020-04-07] MEDS: CEFEPIME 1 GM in SODIUM CHLORIDE 0.9% 50 ML IVPB SCH ×2 (10:05→20:37)
[2020-04-07] MEDS: ATORVASTATIN 10 MG TAB PO SCH (10:05)
[2020-04-07] MEDS: DILTIAZEM CD 180 MG CAP.ER.24H PO SCH (10:05)
[2020-04-07] MEDS: FUROSEMIDE 10 MG/ML 4 ML VIAL IV SCH (10:05)
[2020-04-07] MEDS: CITALOPRAM HYDROBROMIDE 20 MG TAB PO SCH (10:05)
[2020-04-07] MEDS: SODIUM FERRIC GLUCONAT-SUCROSE 125 MG in SODIUM CHLORIDE 0.9% 100 ML IVPB SCH (10:15)
--- NOTE | 2020-04-07 11:14 | P.PN ---
Subjective Patient is seen in follow-up for acute kidney injury. Renal function better today. Potassium level also normal. Urine output over 3 L in the last 24 hours. She is maintained on IV Lasix. Currently sitting up in chair. No active chest pain or shortness of breath. Oral intake is fair. Vital signs are stable. General: The patient appeared well nourished and normally developed. HEENT: Head exam is unremarkable. LUNGS: Breath sounds decreased. Scattered wheezing. HEART: Rate and Rhythm are regular. ABDOMEN: Soft, nontender. Obese. EXTREMITITES: 1+ edema. Objective - Vital Signs Vital signs: Vital Signs Temp 97.5 F L 04/07/20 10:15 Pulse 81 04/07/20 10:15 Resp 22 04/07/20 10:15 BP 196/84 04/07/20 10:15 Pulse Ox 97 04/07/20 10:15 Intake & Output 04/06/20 04/07/20 04/07/20 18:59 06:59 18:59 Intake Total 1840 240 0 Output Total 1999 1140 Balance -160 -900 0 Weight 113 kg Intake: Oral 1840 240 0 Output: Urine 1999 1140 Other: Voiding Method Indwelling Catheter Indwelling Catheter # Bowel Movements 1 - Labs CBC & Chem 7: 04/06/20 07:48 04/07/20 08:59 Labs: Abnormal Lab Results - Last 24 Hours (Table) 04/06/20 04/06/20 04/06/20 Range/Units 11:55 17:08 20:39 PT (9.0-12.0) sec INR (<1.2) BUN (7-17) mg/dL Creatinine (0.52-1.04) mg/dL Glucose (74-99) mg/dL POC Glucose (mg/dL) 153 H 203 H 252 H (75-99) mg/dL Calcium (8.4-10.2) mg/dL 04/07/20 04/07/20 04/07/20 Range/Units 06:57 08:59 08:59 PT 15.1 H (9.0-12.0) sec INR 1.5 H (<1.2) BUN 78 H (7-17) mg/dL Creatinine 1.74 H (0.52-1.04) mg/dL Glucose 206 H (74-99) mg/dL POC Glucose (mg/dL) 207 H (75-99) mg/dL Calcium 8.2 L (8.4-10.2) mg/dL Microbiology - Last 24 Hours (Table) 04/03/20 11:36 Blood Culture - Preliminary Blood No Growth after 72 hours Assessment and Plan Plan: Assessment: 1. Acute kidney injury secondary to ATN secondary to cardiorenal syndrome. Creatinine near 1 from Jan 2020 - peaked at 3.4 this admission and is 1.74 today. No hydronephrosis noted on kidney ultrasound but the right kidney is noted to be small in size. 2. Acute on chronic diastolic CHF with moderate to severe tricuspid regurgitation and severe pulmonary hypertension. 3. Diabetes mellitus. 4. Hyperkalemia secondary to acute kidney injury and hyperglycemia . Better. 5. COPD exacerbation with pseudomonas colonization. Pulmonology following. 6. Volume overload. 7. Anemia. Iron deficiency noted. 8. Coagulopathy. INR trending down. 9. Proteinuria. Most likely secondary to underlying diabetic kidney disease. Further workup outpatient. 10. Benign hypertension. Exacerbated by steroids. Plan: Maintain IV Lasix. Maintain Brooks catheter. Strict I's and O's. Avoid nephrotoxins. Continue to monitor renal function and urine output. Tight blood sugar control. IV iron 3 doses. Second dose today. Add hydralazine 25 mg 3 times daily.
[2020-04-07 11:45] LABS: Glucose,Whole Blood 153 mg/dL (75-99)
--- NOTE | 2020-04-07 12:30 | P.PN ---
Subjective Progress Note Date: 04/07/20 HISTORY OF PRESENT ILLNESS: 74-year-old female follows in the office with Dr. Pruett, who was admitted to the hospital secondary to exacerbation of COPD with pseudomonas infection, congestive heart failure, acute kidney injury, and supratherapeutic INR. Patient examined this morning at the bedside. Patient is more awake this morning. She denies chest pain or pressure. She currently denies shortness of breath. She is maintained on Lasix 40 mg IV daily per nephrology. INR 1.5 today. BUN 78. Creatinine 1.74. PHYSICAL EXAM: VITAL SIGNS: Reviewed. GENERAL: Well-developed in no acute distress. NECK: Supple. No JVD or thyromegaly LUNGS: Respirations even and unlabored. Lungs diminished bilaterally with scattered rhonchi HEART: Regular rate and rhythm. S1 and S2 heard. EXTREMITIES: Normal range of motion. No clubbing or cyanosis. Peripheral pulse s intact. 2+ bilateral lower extremity edema ASSESSMENT: Acute exacerbation of COPD with pseudomonas infection Acute exacerbation of chronic diastolic heart failure Acute kidney injury Hyperkalemia Paroxysmal atrial fibrillation, on anticoagulation with Coumadin, currently ma intaining sinus mechanism Coumadin coagulopathy, INR 7.4 Hematuria PLAN: Pulmonary following. Appreciate input Nephrology following. Continue IV Lasix per nephrology Daily weights Accurate I&O Continue to monitor INR. Patient to receive 5 mg of Coumadin tonight Echo pending. Await results. Further recommendations pending patient's course Nurse practitioner note has been reviewed by physician. Signing provider agrees with the documented findings, assessment, and plan of care. Objective - Vital Signs Vital signs: Vital Signs Temp 97.5 F L 04/07/20 10:15 Pulse 76 04/07/20 12:09 Resp 22 04/07/20 11:00 BP 146/84 04/07/20 11:00 Pulse Ox 98 04/07/20 11:00 Intake & Output 04/06/20 04/07/20 04/07/20 18:59 06:59 18:59 Intake Total 1840 240 0 Output Total 1999 1140 Balance -160 -900 0 Weight 113 kg Intake: Oral 1840 240 0 Output: Urine 1999 1140 Other: Voiding Method Indwelling Catheter Indwelling Catheter # Bowel Movements 1 - Labs CBC & Chem 7: 04/06/20 07:48 04/07/20 08:59 Labs: Abnormal Lab Results - Last 24 Hours (Table) 04/06/20 04/06/20 04/07/20 Range/Units 17:08 20:39 06:57 PT (9.0-12.0) sec INR (<1.2) BUN (7-17) mg/dL Creatinine (0.52-1.04) mg/dL Glucose (74-99) mg/dL POC Glucose (mg/dL) 203 H 252 H 207 H (75-99) mg/dL Calcium (8.4-10.2) mg/dL 04/07/20 04/07/20 04/07/20 Range/Units 08:59 08:59 11:44 PT 15.1 H (9.0-12.0) sec INR 1.5 H (<1.2) BUN 78 H (7-17) mg/dL Creatinine 1.74 H (0.52-1.04) mg/dL Glucose 206 H (74-99) mg/dL POC Glucose (mg/dL) 153 H (75-99) mg/dL Calcium 8.2 L (8.4-10.2) mg/dL Microbiology - Last 24 Hours (Table) 04/03/20 11:36 Blood Culture - Preliminary Blood No Growth after 72 hours
--- NOTE | 2020-04-07 14:42 | PN ---
PROGRESS NOTE DATE OF SERVICE: 04/07/2020 This 74-year-old woman was admitted with pneumonia, shortness of breath as well as renal failure is being closely monitored. Patient also had oral lesions also. The patient is on IV Lasix. The patient also had significant shortness of breath and weakness also. The most recent chest x-ray was reviewed. A videofluoroscopic swallow showed no evidence of any aspiration. PAST MEDICAL HISTORY: Reviewed. REVIEW OF SYSTEMS: CARDIOVASCULAR SYSTEM: No angina. RESPIRATORY SYSTEM: As mentioned earlier. GI: As mentioned earlier. : No dysuria. NERVOUS SYSTEM: No numbness. Generalized weakness. CURRENT MEDICATIONS: Current medications are reviewed and include: DuoNeb, Xanax, aspirin, Lipitor, Tessalon, Celexa, Cardizem CD, Apresoline, Synthroid. Doses are reviewed. PHYSICAL EXAMINATION: Patient is alert and oriented x3. Pulse 77, blood pressure 146/84, respiration 22, temperature 97.5, pulse ox 96% on 4 L. HEENT: Conjunctivae normal. NECK: No jugular venous distention. CARDIOVASCULAR: S1, S2 muffled. RESPIRATORY: Breath sounds diminished in the bases. Bilateral scattered rhonchi and crackles. Expiratory wheezing also present. ABDOMEN: Soft, obese, nontender. LEGS: No edema, no swelling. NERVOUS SYSTEM: Higher functions as mentioned earlier. Moves all 4 limbs. No focal motor or sensory deficits. LYMPHATICS: No lymphadenopathy of the neck, axillae or groin. SKIN: No ulcer, rash or bleeding. JOINTS: No active deforming arthropathy. LABS: Hemoglobin 9.4. INR 1.5. The labs are noted. ASSESSMENT: 1. Chronic obstructive pulmonary disease, bronchial asthma acute exacerbation with bibasilar pneumonia, possibly hospital acute pneumonia with Pseudomonas. 2. Acute on chronic hypoxic respiratory failure. 3. Acute kidney injury with acute tubular necrosis. 4. Hyperkalemia in presentation secondary to renal failure. 5. Chronic diastolic congestive heart failure, ejection fraction 50% to 55%. 6. Coagulopathy secondary to Coumadin toxicity. 7. Paroxysmal atrial fibrillation. 8. Fall and gait dysfunction. 9. Diabetes mellitus type 2. 10.Hypertension. 11.Hypothyroidism. 12.History of lung disease possibly. 13.Moderate to severe pulmonary hypertension. 14.Chronic hypoxic respiratory failure on 2 L oxygen nasal cannula. 15.Gait dysfunction. 16.Obesity with body mass index of 39.9. 17.FULL CODE. RECOMMENDATIONS AND DISCUSSION: This 74-year-old woman who presented with multiple complex medical issues, we will monitor the patient closely. Continue the current medications, continue symptomatic treatment. Otherwise at this time I recommend to continue with the bronchodilators. Recommend also add valacyclovir to the current regimen, PT, OT evaluation and evaluate the patient for possible ECF rehab. Prognosis guarded because of multiple complex medical issues and further recommendations to follow. MMODL / IJN: [id number] /
[2020-04-07 16:07] LABS: Glucose,Whole Blood 154 mg/dL (75-99)
[2020-04-07] MEDS: ALPRAZolam 0.5 MG TAB PO PRN (16:29)
[2020-04-07] MEDS: hydrALAZINE HCL 25 MG TAB PO SCH ×2 (16:29→20:37)
--- NOTE | 2020-04-07 16:47 | P.PN ---
Subjective Progress Note Date: 04/07/20 Principal diagnosis: Acute exacerbation of chronic obstructive pulmonary disease and recurrent tracheobronchitis secondary to pseudomonas aeruginosa. -year-old female patient with chronic COPD/asthma, diabetes, chronic stage III kidney disease, chronic atrial fibrillation, diastolic heart failure with multiple hospitalizations in the past due to pulmonary complications of recu rrent infection including infections with Pseudomonas. Other comorbidities include hypothyroidism, hiatal hernia and obesity. The patient was recently discharged from the hospital and she had a hospitalization and she was discharged home on January [id number] , and acute exacerbation of her chronic COPD/asthma secondary to pseudomonas aeruginosa. After being treated, the patient was discharged home. The patient came in yesterday to the emergency complaining of feeling worsening shortness of breath, cough and congestion and same time her appetite was down and she was having increased hardness and sweating. The patient has been enrolled in hospice care and she has been followed up by [facility]. I reviewed the home medications and the patient was placed on high-dose prednisone that she's been taking for at least 2 months for now at a dose of 50 mg by mouth daily. She is also on DuoNeb nebulized treatments around the clock, Lantus insulin 30 units daily along with his vascular coverage. She was also being given morphine an as-needed basis for shortness of breath and breathlessness at a dose of 5 mg every fours hours on a when necessary basis. She is on tramadol for pain control and she takes warfarin as a long-term anticoagulants. While at home, she was getting progre ssively more debilitated. She tried to get up and she was trying to look to the bathroom and she fell. The hospice nurses end up sending her here to the hospital for further evaluation. A CAT scan of the brain was done and was negative. An x-ray of the shoulder was done that was negative. INR was at was at 2.7 and there was no evidence of any acute bleeding. On 04/05/2020, the patient is resting comfortably in bed. No significant respiratory distress. I feel that her breathing is slightly improved compared to yesterday. She does have a congested cough. Ongoing issues for now is the a cute kidney injury. The patient was seen by nephrology. IV fluids were cut down and the patient was given a dose of Lasix. She responded that she produces approximately 400 mL of urine output. Her BUN today is 104. Creatinine is at 3.4. She was given vitamin K regarding her coagulopathy her INR is down to 3.2. No significant signs of bleeding. Hemoccult was attempted 0.8. A follow-up chest x-ray was done and shows cardiomegaly. No evidence of any airspace disease or pneumonia. The patient does have some cardiomegaly and mild pulmonary vascular congestion. Meanwhile, a repeat sputum sample is to be collected and the blood culture is negative for now. I have the patient on IV cefepime for now. She is on DuoNeb nebulized treatments around the clock. I cut down the prednisone down to 20 mg by mouth daily. Her blood sugars are under adequate control for now and she is on Levemir insulin. In fact her blood pressure blood sugar control is improved since her admission and she is currently on Levemir 30 units along with sliding scale coverage. Reevaluated today on 04/06/2020, patient continues to have intermittent episodes of cough wheezing and shortness of breath. She is quite congested, on physical examination she has significant rhonchi and wheezes noted bilaterally. Her last chest x-ray from 2 days ago showed mild pulmonary vascular congestion, and mild patchy bibasilar atelectasis. CBC is relatively normal her INR is 1.8 electrolytes are normal BUN is 96 creatinine is 2.58. Patient remains on bronchodilators, remains on prednisone 20 mg daily, and she is on cefepime for her pseudomonal infection Patient was reevaluated today on 04/07/2020, feeling better, breathing easier, continues to have intermittent cough and wheezing, but overall she seems better, patient seems to be quite edematous, maintain on Lasix. Electrolytes are normal BUN is improved down to 78 and creatinine is improved down to 1.74. CBC is relatively normal. Objective - Vital Signs Vital signs: Vital Signs Temp 97.6 F 04/07/20 16:30 Pulse 77 04/07/20 16:30 Resp 20 04/07/20 16:30 BP 190/86 04/07/20 16:30 Pulse Ox 98 04/07/20 16:30 Intake & Output 04/06/20 04/07/20 04/07/20 18:59 06:59 18:59 Intake Total 1840 240 950 Output Total 1999 1140 900 Balance -160 -900 50 Weight 113 kg Intake: Oral 1840 240 950 Output: Urine 2000 1140 900 Other: Voiding Method Indwelling Catheter Indwelling Catheter Indwelling Catheter # Bowel Movements 1 - Exam GENERAL EXAM: 74-year-old female on 2 L nasal cannula HEENT: PERRLA, EOMI, nonicteric, no neck masses, no JVD, no stridor, moist mucous membranes CHEST: No chest wall deformity. Symmetrical expansion. LUNGS: Rhonchi and wheezes on forced expiratory maneuver noted. CVS: Regular rate and rhythm, normal S1 and S2, no gallops, no murmurs, no rubs ABDOMEN: Soft, nontender. No hepatosplenomegaly, normal bowel sounds, no guarding or rigidity. EXTREMITIES: No clubbing, chronic venous stasis changes involving lower extremities, and increase pretibial edema, no cyanosis, 2+ pulses and upper and lower extremities. There may be also some cellulitis in the lower extremities more so on the left as the area between the ankle and the knee on the left is quite warm and erythematous. No open wounds or sores. MUSCULOSKELETAL: Muscle strength and tone normal. SPINE: No scoliosis or deformity SKIN: No rashes, areas of bruises in her right upper extremity elbow area, right lateral posterior chest and abdominal wall. No bruises over the lower extremities. CENTRAL NERVOUS SYSTEM: Alert and oriented -3. No focal deficits, tone is normal in all 4 extremities. PSYCHIATRIC: Alert and oriented -3. Appropriate affect. Intact judgment and insight. - Labs CBC & Chem 7: 04/06/20 07:48 04/07/20 08:59 Labs: Abnormal Lab Results - Last 24 Hours (Table) 04/06/20 04/06/20 04/07/20 Range/Units 17:08 20:39 06:57 PT (9.0-12.0) sec INR (<1.2) BUN (7-17) mg/dL Creatinine (0.52-1.04) mg/dL Glucose (74-99) mg/dL POC Glucose (mg/dL) 203 H 252 H 207 H (75-99) mg/dL Calcium (8.4-10.2) mg/dL 04/07/20 04/07/20 04/07/20 Range/Units 08:59 08:59 11:44 PT 15.1 H (9.0-12.0) sec INR 1.5 H (<1.2) BUN 78 H (7-17) mg/dL Creatinine 1.74 H (0.52-1.04) mg/dL Glucose 206 H (74-99) mg/dL POC Glucose (mg/dL) 153 H (75-99) mg/dL Calcium 8.2 L (8.4-10.2) mg/dL 04/07/20 Range/Units 16:06 PT (9.0-12.0) sec INR (<1.2) BUN (7-17) mg/dL Creatinine (0.52-1.04) mg/dL Glucose (74-99) mg/dL POC Glucose (mg/dL) 154 H (75-99) mg/dL Calcium (8.4-10.2) mg/dL Microbiology - Last 24 Hours (Table) 04/03/20 11:36 Blood Culture - Preliminary Blood No Growth after 96 hours Assessment and Plan Assessment: Impression: Acute exacerbation of COPD Acute tracheobronchitis secondary to pseudomonas aeruginosa. Acute on chronic hypoxic respiratory failure secondary to above. Acute on chronic kidney injury, eating addressed by nephrology on the case. Paroxysmal atrial fibrillation. Chronic hypoxic arrest or failure maintained on option at 2 L/m. Type 2 diabetes. Benign essential hypertension. Hypothyroidism. Secondary pulmonary hypertension. Medical debility, patient is unable to ambulate on her own at home. Recommendation: Continue antibiotics Continue bronchodilators. Continue close monitoring of renal status. Continue DuoNeb. Continue Coumadin. Possible discharge planning in the next 24 hours. Time with Patient: Less than 30
[2020-04-07] MEDS ORDERED: WARFARIN 5 MG TAB PO ONE (18:00)
[2020-04-07 20:21] LABS: Glucose,Whole Blood 115 mg/dL (75-99)
[2020-04-07] MEDS: valACYclovir HCL 1,000 MG TABLET PO SCH (20:36)
[2020-04-08] MEDS: ALPRAZolam 0.5 MG TAB PO PRN ×3 (03:18→21:20)
[2020-04-08] MEDS: hydrALAZINE HCL 20 MG/ML 1 ML VIAL IVP PRN (03:22)
[2020-04-08] MEDS: LEVOTHYROXINE 50 MCG TAB PO SCH (06:31)
[2020-04-08] MEDS: PANTOPRAZOLE 40 MG TABLET PO SCH (06:31)
[2020-04-08 07:00] LABS: Glucose,Whole Blood 110 mg/dL (75-99)
[2020-04-08] MEDS: INSULIN ASPART (NovoLOG) 100 UNIT/ML VIAL SQ SCH ×7 (07:05→21:14)
[2020-04-08] MEDS: IPRATROPIUM-ALBUTEROL 3 ML NEB INHALATION SCH ×4 (07:39→20:55)
[2020-04-08] MEDS: SYMBICORT 160-4.5 MCG INHALER INHALATION SCH ×2 (07:39→20:55)
[2020-04-08 09:26] LABS: INR 1.6 (<1.2); Prothrombin Time 15.9 sec (9.0-12.0)
[2020-04-08 09:27] LABS: Anisocytosis Slight; Basophils % (A) 0 %; Eosinophils % (A) 0 %; HCT 30.9 % (34.0-46.0); HGB 9.4 gm/dL (11.4-16.0); Hypochromasia Moderate; Lymphocytes # (A) 2.4 k/uL (1.0-4.8); Lymphocytes % (A) 22 %; MCH 26.7 pg (25.0-35.0); MCHC 30.5 g/dL (31.0-37.0); MCV 87.3 fL (80.0-100.0); Mean Platelet Volume 7.3; Monocytes # (A) 0.6 k/uL (0-1.0); Monocytes % (A) 6 %; Neutrophils # (A) 7.9 k/uL (1.3-7.7); Neutrophils % (A) 71 %; Platelet Count 151 k/uL (150-450); RBC 3.54 m/uL (3.80-5.40); RDW 18.1 % (11.5-15.5); WBC 11.1 k/uL (3.8-10.6)
[2020-04-08 09:35] LABS: Calcium 8.7 mg/dL (8.4-10.2)
[2020-04-08] MEDS: ATORVASTATIN 10 MG TAB PO SCH (09:49)
[2020-04-08] MEDS: ASPIRIN 81 MG PO SCH (09:49)
[2020-04-08] MEDS: hydrALAZINE HCL 25 MG TAB PO SCH ×3 (09:50→21:13)
[2020-04-08] MEDS: METOPROLOL TARTRATE 50 MG TAB PO SCH ×2 (09:50→21:13)
[2020-04-08] MEDS: predniSONE 20 MG TAB PO SCH (09:50)
[2020-04-08] MEDS: DILTIAZEM CD 180 MG CAP.ER.24H PO SCH (09:50)
[2020-04-08] MEDS: CITALOPRAM HYDROBROMIDE 20 MG TAB PO SCH (09:50)
[2020-04-08] MEDS: CEFEPIME 1 GM in SODIUM CHLORIDE 0.9% 50 ML IVPB SCH ×2 (09:51→21:13)
[2020-04-08] MEDS: valACYclovir HCL 1,000 MG TABLET PO SCH ×2 (09:51→21:14)
[2020-04-08] MEDS: FUROSEMIDE 10 MG/ML 4 ML VIAL IV SCH (09:51)
[2020-04-08] MEDS: SODIUM FERRIC GLUCONAT-SUCROSE 125 MG in SODIUM CHLORIDE 0.9% 100 ML IVPB SCH (09:51)
--- NOTE | 2020-04-08 10:25 | CDI ---
Documentation Clarification Form Date: 04/08/2020 09:49:44 AM From: Rebecca Amanda RN CCDS Admit Date: 04/03/2020 12:00:00 AM Patient Name: Xi Lloyd Visit Number: [id number] Discharge Date: ATTENTION: The Clinical Documentation Specialists (CDI) and [facility] Coding Staff appreciate your assistance in clarifying documentation. Please respond to the clarification below the line at the bottom and electronically sign. The CDI & [facility] Coding staff will review the response and follow-up if needed. Please note: Queries are made part of the Legal Health Record. If you have any questions, please contact the author of this message via ITS. Dr. Nixon Gamboa Conflicting documentation has been found in the medical record: Acute exacerbation of chronic diastolic heart failure. Documented in the Cardiology consult 04/03 and in Progress notes 04/03 through 04/07. Chronic diastolic congestive heart failure, ejection fraction 50% to 55%. Documented in the Internal medicine progress note 04/07. History/Risk Factors: 74-year old female presents to the ED for evaluation after a fall hitting her face. Per ED note 04/02. Medical History: Chronic diastolic CHF, CKD 3, DM, Asthma, COPD and multiple hospitalizations in 2019 last hospitalization January 2020. Per H&P 04/03 Clinical Indicators: 04/02 VSS: B/P 139/95; HR 69; Temp 98.4 F Oral; RR 18; SpO2 90% 3.5L nasal cannula 04/02 CXR: Moderate interstitial edema wit bibasilar hazy opacities. Cardiomegaly. 01/30 Echo: Severe concentric left ventricular hypertrophy. Ventricular systolic function is low-normal EF 50-55%. Mild mitral regurgitation. Moderate to severe tricuspid regurgitation. Treatment: 01/30 Lasix 40mg IV x1; 04/03 Lasix 40mg Q12HR JS d/c 04/04; 04/05 Lasix 40mg IV x 1; 04/06 Lasix 40mb IV Daily JS; 04/03 Lopressor 50mg PO BID JS. In your opinion, what is the most clinically appropriate diagnosis for this patient? Acute on chronic diastolic heart failure. Chronic diastolic heart failure. Other explanation of clinical findings Unable to determine (no explanation for clinical findings) (Last Revision: May 2017) Acute on chronic diastolic heart failure. MTDD
[2020-04-08] MEDS: INSULIN DETEMIR (LEVEMIR) 100 UNIT/ML SYR SQ SCH (10:46)
[2020-04-08 12:00] LABS: Glucose,Whole Blood 212 mg/dL (75-99)
--- NOTE | 2020-04-08 12:08 | P.PN ---
Subjective Progress Note Date: 04/08/20 HISTORY OF PRESENT ILLNESS: 04/07/2020 74-year-old female follows in the office with Dr. Pruett, who was admitted to the hospital secondary to exacerbation of COPD with pseudomonas infection, congestive heart failure, acute kidney injury, and supratherapeutic INR. Patient examined this morning at the bedside. Patient is more awake this morning. She denies chest pain or pressure. She currently denies shortness of breath. She is maintained on Lasix 40 mg IV daily per nephrology. INR 1.5 today. BUN 78. Creatinine 1.74. 04/08/2020 Patient examined this morning at the bedside. She denies chest pain or pressure. She currently denies shortness of breath. She reports a non productive cough. She remains on Coumadin. INR today is 1.6. Nephrology is following. She is receiving Lasix 40 mg IV daily. BUN 58. Creatinine 1.31. Fluid balance over the last 24 hours is -1035 mL. PHYSICAL EXAM: VITAL SIGNS: Reviewed. GENERAL: Well-developed in no acute distress. NECK: Supple. No JVD or thyromegaly LUNGS: Respirations even and unlabored. Lungs diminished bilaterally with scattered rhonchi HEART: Regular rate and rhythm. S1 and S2 heard. EXTREMITIES: Normal range of motion. No clubbing or cyanosis. Peripheral pulses intact. 2+ bilateral lower extremity edema ASSESSMENT: Acute exacerbation of COPD with pseudomonas infection Acute exacerbation of chronic diastolic heart failure Acute kidney injury Hyperkalemia Paroxysmal atrial fibrillation, on anticoagulation with Coumadin, currently maintaining sinus mechanism Coumadin coagulopathy, INR 7.4 Hematuria PLAN: Pulmonary following. Appreciate input Nephrology following. Continue IV Lasix per nephrology Daily weights Accurate I&O Continue to monitor INR. Patient to receive 5 mg of Coumadin tonight Echo pending. Await results. Further recommendations pending patient's course Nurse practitioner note has been reviewed by physician. Signing provider agrees with the documented findings, assessment, and plan of care. Objective - Vital Signs Vital signs: Vital Signs Temp 97.6 F 04/08/20 10:51 Pulse 76 04/08/20 11:10 Resp 20 04/08/20 10:51 BP 146/82 04/08/20 10:51 Pulse Ox 97 04/08/20 10:51 Intake & Output 04/07/20 04/08/20 04/08/20 18:59 06:59 18:59 Intake Total 950 240 240 Output Total 900 1325 525 Balance 50 -1085 -285 Weight 115.5 kg Intake: Oral 950 240 240 Output: Urine 900 1325 525 Uretheral (Brooks) 300 Other: Voiding Method Indwelling Catheter Indwelling Catheter # Bowel Movements 1 - Labs CBC & Chem 7: 04/08/20 08:22 04/08/20 08:22 Labs: Abnormal Lab Results - Last 24 Hours (Table) 04/03/20 04/07/20 04/07/20 Range/Units 11:36 16:06 20:20 WBC (3.8-10.6) k/uL RBC (3.80-5.40) m/uL Hgb (11.4-16.0) gm/dL Hct (34.0-46.0) % MCHC (31.0-37.0) g/dL RDW (11.5-15.5) % Neutrophils # (1.3-7.7) k/uL PT (9.0-12.0) sec INR (<1.2) Carbon Dioxide (22-30) mmol/L BUN (7-17) mg/dL Creatinine (0.52-1.04) mg/dL Glucose (74-99) mg/dL POC Glucose (mg/dL) 154 H 115 H (75-99) mg/dL Procalcitonin 0.54 H (0.02-0.09) ng/mL 04/08/20 04/08/20 04/08/20 Range/Units 06:58 08:22 08:22 WBC (3.8-10.6) k/uL RBC (3.80-5.40) m/uL Hgb (11.4-16.0) gm/dL Hct (34.0-46.0) % MCHC (31.0-37.0) g/dL RDW (11.5-15.5) % Neutrophils # (1.3-7.7) k/uL PT 15.9 H (9.0-12.0) sec INR 1.6 H (<1.2) Carbon Dioxide 31 H (22-30) mmol/L BUN 58 H (7-17) mg/dL Creatinine 1.31 H (0.52-1.04) mg/dL Glucose 154 H (74-99) mg/dL POC Glucose (mg/dL) 110 H (75-99) mg/dL Procalcitonin (0.02-0.09) ng/mL 04/08/20 04/08/20 Range/Units 08:22 11:57 WBC 11.1 H (3.8-10.6) k/uL RBC 3.54 L (3.80-5.40) m/uL Hgb 9.4 L (11.4-16.0) gm/dL Hct 30.9 L (34.0-46.0) % MCHC 30.5 L (31.0-37.0) g/dL RDW 18.1 H (11.5-15.5) % Neutrophils # 7.9 H (1.3-7.7) k/uL PT (9.0-12.0) sec INR (<1.2) Carbon Dioxide (22-30) mmol/L BUN (7-17) mg/dL Creatinine (0.52-1.04) mg/dL Glucose (74-99) mg/dL POC Glucose (mg/dL) 212 H (75-99) mg/dL Procalcitonin (0.02-0.09) ng/mL Microbiology - Last 24 Hours (Table) 04/03/20 11:36 Blood Culture - Preliminary Blood No Growth after 96 hours
--- NOTE | 2020-04-08 13:11 | P.PN ---
Subjective Patient is seen in follow-up for acute kidney injury. Renal function continues to improve. Potassium level also normal. Nonoliguric. She is maintained on IV Lasix. Currently sitting up in chair. No active chest pain or shortness of breath. Oral intake is fair. Vital signs are stable. General: The patient appeared well nourished and normally developed. HEENT: Head exam is unremarkable. LUNGS: Breath sounds decreased. Scattered wheezing. HEART: Rate and Rhythm are regular. ABDOMEN: Soft, nontender. Obese. EXTREMITITES: 1+ edema. Objective - Vital Signs Vital signs: Vital Signs Temp 97.6 F 04/08/20 10:51 Pulse 76 04/08/20 11:10 Resp 20 04/08/20 10:51 BP 146/82 04/08/20 10:51 Pulse Ox 97 04/08/20 10:51 Intake & Output 04/07/20 04/08/20 04/08/20 18:59 06:59 18:59 Intake Total 950 240 240 Output Total 900 1325 525 Balance 50 -1085 -285 Weight 115.5 kg Intake: Oral 950 240 240 Output: Urine 900 1325 525 Uretheral (Brooks) 300 Other: Voiding Method Indwelling Catheter Indwelling Catheter # Bowel Movements 1 - Labs CBC & Chem 7: 04/08/20 08:22 04/08/20 08:22 Labs: Abnormal Lab Results - Last 24 Hours (Table) 04/03/20 04/07/20 04/07/20 Range/Units 11:36 16:06 20:20 WBC (3.8-10.6) k/uL RBC (3.80-5.40) m/uL Hgb (11.4-16.0) gm/dL Hct (34.0-46.0) % MCHC (31.0-37.0) g/dL RDW (11.5-15.5) % Neutrophils # (1.3-7.7) k/uL PT (9.0-12.0) sec INR (<1.2) Carbon Dioxide (22-30) mmol/L BUN (7-17) mg/dL Creatinine (0.52-1.04) mg/dL Glucose (74-99) mg/dL POC Glucose (mg/dL) 154 H 115 H (75-99) mg/dL Procalcitonin 0.54 H (0.02-0.09) ng/mL 04/08/20 04/08/20 04/08/20 Range/Units 06:58 08:22 08:22 WBC (3.8-10.6) k/uL RBC (3.80-5.40) m/uL Hgb (11.4-16.0) gm/dL Hct (34.0-46.0) % MCHC (31.0-37.0) g/dL RDW (11.5-15.5) % Neutrophils # (1.3-7.7) k/uL PT 15.9 H (9.0-12.0) sec INR 1.6 H (<1.2) Carbon Dioxide 31 H (22-30) mmol/L BUN 58 H (7-17) mg/dL Creatinine 1.31 H (0.52-1.04) mg/dL Glucose 154 H (74-99) mg/dL POC Glucose (mg/dL) 110 H (75-99) mg/dL Procalcitonin (0.02-0.09) ng/mL 04/08/20 04/08/20 Range/Units 08:22 11:57 WBC 11.1 H (3.8-10.6) k/uL RBC 3.54 L (3.80-5.40) m/uL Hgb 9.4 L (11.4-16.0) gm/dL Hct 30.9 L (34.0-46.0) % MCHC 30.5 L (31.0-37.0) g/dL RDW 18.1 H (11.5-15.5) % Neutrophils # 7.9 H (1.3-7.7) k/uL PT (9.0-12.0) sec INR (<1.2) Carbon Dioxide (22-30) mmol/L BUN (7-17) mg/dL Creatinine (0.52-1.04) mg/dL Glucose (74-99) mg/dL POC Glucose (mg/dL) 212 H (75-99) mg/dL Procalcitonin (0.02-0.09) ng/mL Microbiology - Last 24 Hours (Table) 04/03/20 11:36 Blood Culture - Preliminary Blood No Growth after 96 hours Assessment and Plan Plan: Assessment: 1. Acute kidney injury secondary to ATN secondary to cardiorenal syndrome. Creatinine near 1 from Jan 2020 - peaked at 3.4 this admission and is 1.31 today. No hydronephrosis noted on kidney ultrasound but the right kidney is n oted to be small in size. 2. Acute on chronic diastolic CHF with moderate to severe tricuspid regur gitation and severe pulmonary hypertension. 3. Diabetes mellitus. 4. Hyperkalemia secondary to acute kidney injury and hyperglycemia . Better. 5. COPD exacerbation with pseudomonas colonization. Pulmonology following. 6. Volume overload. 7. Anemia. Iron deficiency noted. 8. Coagulopathy. Resolved. 9. Proteinuria. Most likely secondary to underlying diabetic kidney disease. Further workup outpatient. 10. Benign hypertension. Exacerbated by steroids. Stable. Plan: Maintain IV Lasix. Maintain Brooks catheter. Strict I's and O's. Avoid nephrotoxins. Continue to monitor renal function and urine output. Tight blood sugar control. IV iron 3 doses. Last dose today.
--- NOTE | 2020-04-08 13:55 | PN ---
PROGRESS NOTE DATE OF SERVICE: 04/08/2020. HISTORY OF PRESENT ILLNESS: This 74-year-old woman who was admitted with pneumonia and shortness of breath also had renal injury as well. The patient is complaining of extreme weakness. The patient is also crying possibly because of difficulty in ambulation and other things. Patient was previously on hospice and comfort measures. At this time per telephonic case manager, the family would like to return home with palliative care rather than going to rehab. PAST MEDICAL HISTORY: Reviewed. REVIEW OF SYSTEMS: CARDIOVASCULAR SYSTEM: As mentioned earlier. RESPIRATORY SYSTEM: As mentioned earlier. GI: As mentioned earlier. : No dysuria. NERVOUS SYSTEM: No numbness or weakness. CURRENT MEDICATIONS: Current medications are reviewed and include DuoNeb, Xanax, aspirin, Lipitor, Symbicort, Celexa, Cardizem. Doses are reviewed. PHYSICAL EXAMINATION: The patient is alert and oriented x3. Pulse 71, blood pressure 146/82, respiration 20, temperature 97.6, pulse ox 97% on 2 L. HEENT: Conjunctivae normal. NECK: No jugular venous distention. CARDIOVASCULAR: S1, S2 muffled. RESPIRATORY: Breath sounds diminished at the bases. A few scattered rhonchi and crackles. ABDOMEN: Soft, nontender. LEGS: No edema, no swelling. NERVOUS SYSTEM: No focal deficits. LABS: WBC 11.1, hemoglobin 9.4, creatinine 1.31. ASSESSMENT: 1. Chronic obstructive pulmonary disease and bronchial asthma acute exacerbation with bibasilar pneumonia possibly hospital-acquired pneumonia with Pseudomonas. 2. Acute on chronic hypoxic respiratory failure. 3. Acute kidney injury with acute tubular necrosis. 4. Hyperkalemia on presentation secondary to renal failure. 5. Chronic diastolic congestive heart failure, ejection fraction 50% to 55%. 6. Coagulopathy secondary to Coumadin toxicity. 7. Paroxysmal atrial fibrillation. 8. Fall and gait dysfunction. 9. Diabetes mellitus type 2. 10.Hypertension. 11.Hypothyroidism. 12.History of lung disease possibly. 13.Moderate to severe pulmonary hypertension. 14.Chronic hypoxic respiratory failure on 2 L nasal cannula oxygen. 15.Gait dysfunction. 16.Obesity with body mass index of 39.9. 17.FULL CODE. RECOMMENDATIONS AND DISCUSSION: I recommend to continue current medication, continue symptomatic treatment. Continue with the bronchodilators. Otherwise monitor creatinine closely. PT, OT evaluation. Plan for home with palliative care once the patient is stabilized. Prognosis guarded. Further recommendations to follow. MMODL / IJN: [id number] /
--- NOTE | 2020-04-08 14:56 | P.PN ---
Subjective Progress Note Date: 04/08/20 Principal diagnosis: Acute exacerbation of chronic obstructive pulmonary disease and recurrent tracheobronchitis secondary to pseudomonas aeruginosa. -year-old female patient with chronic COPD/asthma, diabetes, chronic stage III kidney disease, chronic atrial fibrillation, diastolic heart failure with multiple hospitalizations in the past due to pulmonary complications of recu rrent infection including infections with Pseudomonas. Other comorbidities include hypothyroidism, hiatal hernia and obesity. The patient was recently discharged from the hospital and she had a hospitalization and she was discharged home on January [id number] , and acute exacerbation of her chronic COPD/asthma secondary to pseudomonas aeruginosa. After being treated, the patient was discharged home. The patient came in yesterday to the emergency complaining of feeling worsening shortness of breath, cough and congestion and same time her appetite was down and she was having increased hardness and sweating. The patient has been enrolled in hospice care and she has been followed up by [facility]. I reviewed the home medications and the patient was placed on high-dose prednisone that she's been taking for at least 2 months for now at a dose of 50 mg by mouth daily. She is also on DuoNeb nebulized treatments around the clock, Lantus insulin 30 units daily along with his vascular coverage. She was also being given morphine an as-needed basis for shortness of breath and breathlessness at a dose of 5 mg every fours hours on a when necessary basis. She is on tramadol for pain control and she takes warfarin as a long-term anticoagulants. While at home, she was getting progre ssively more debilitated. She tried to get up and she was trying to look to the bathroom and she fell. The hospice nurses end up sending her here to the hospital for further evaluation. A CAT scan of the brain was done and was negative. An x-ray of the shoulder was done that was negative. INR was at was at 2.7 and there was no evidence of any acute bleeding. On 04/05/2020, the patient is resting comfortably in bed. No significant respiratory distress. I feel that her breathing is slightly improved compared to yesterday. She does have a congested cough. Ongoing issues for now is the a cute kidney injury. The patient was seen by nephrology. IV fluids were cut down and the patient was given a dose of Lasix. She responded that she produces approximately 400 mL of urine output. Her BUN today is 104. Creatinine is at 3.4. She was given vitamin K regarding her coagulopathy her INR is down to 3.2. No significant signs of bleeding. Hemoccult was attempted 0.8. A follow-up chest x-ray was done and shows cardiomegaly. No evidence of any airspace disease or pneumonia. The patient does have some cardiomegaly and mild pulmonary vascular congestion. Meanwhile, a repeat sputum sample is to be collected and the blood culture is negative for now. I have the patient on IV cefepime for now. She is on DuoNeb nebulized treatments around the clock. I cut down the prednisone down to 20 mg by mouth daily. Her blood sugars are under adequate control for now and she is on Levemir insulin. In fact her blood pressure blood sugar control is improved since her admission and she is currently on Levemir 30 units along with sliding scale coverage. Reevaluated today on 04/06/2020, patient continues to have intermittent episodes of cough wheezing and shortness of breath. She is quite congested, on physical examination she has significant rhonchi and wheezes noted bilaterally. Her last chest x-ray from 2 days ago showed mild pulmonary vascular congestion, and mild patchy bibasilar atelectasis. CBC is relatively normal her INR is 1.8 electrolytes are normal BUN is 96 creatinine is 2.58. Patient remains on bronchodilators, remains on prednisone 20 mg daily, and she is on cefepime for her pseudomonal infection Patient was reevaluated today on 04/07/2020, feeling better, breathing easier, continues to have intermittent cough and wheezing, but overall she seems better, patient seems to be quite edematous, maintain on Lasix. Electrolytes are normal BUN is improved down to 78 and creatinine is improved down to 1.74. CBC is relatively normal. Reevaluated today on 04/08/2020, patient continues to have intermittent cough and wheezing, tells me she is about the same as yesterday, patient remains on bronchodilators, her renal functioning is improving her overall pulmonary status is slightly improved. And I have a feeling that the patient could be considered for discharge planning in the next 24 hours. Remains on antibiotics and bronchodilators. Labs today were reviewed creatinine is down to 1.31 hemoglobin is 58 CBC is relatively normal last chest x-ray showed patchy bibasilar atelectasis/possible infiltrates in the lower lobes. Objective - Vital Signs Vital signs: Vital Signs Temp 97.6 F 04/08/20 10:51 Pulse 76 04/08/20 11:10 Resp 20 04/08/20 10:51 BP 146/82 04/08/20 10:51 Pulse Ox 97 04/08/20 10:51 Intake & Output 04/07/20 04/08/20 04/08/20 18:59 06:59 18:59 Intake Total 950 240 480 Output Total 900 1325 1025 Balance 50 -1085 -545 Weight 115.5 kg Intake: Oral 950 240 480 Output: Urine 900 1325 1025 Uretheral (Brooks) 300 Other: Voiding Method Indwelling Catheter Indwelling Catheter # Voids 2 # Bowel Movements 1 - Exam GENERAL EXAM: 74-year-old female on 2 L nasal cannula HEENT: PERRLA, EOMI, nonicteric, no neck masses, no JVD, no stridor, moist muc ous membranes CHEST: No chest wall deformity. Symmetrical expansion. LUNGS: Wheezing on forced expiratory maneuver noted. Fine crackles at the bases. CVS: Regular rate and rhythm, normal S1 and S2, no gallops, no murmurs, no rubs ABDOMEN: Soft, nontender. No hepatosplenomegaly, normal bowel sounds, no guarding or rigidity. EXTREMITIES: No clubbing, chronic venous stasis changes involving lower extremities, and increase pretibial edema, no cyanosis, 2+ pulses and upper and lower extremities. There may be also some cellulitis in the lower extremities more so on the left as the area between the ankle and the knee on the left is quite warm and erythematous. No open wounds or sores. MUSCULOSKELETAL: Muscle strength and tone normal. SPINE: No scoliosis or deformity SKIN: No rashes, areas of bruises in her right upper extremity elbow area, right lateral posterior chest and abdominal wall. No bruises over the lower extremities. CENTRAL NERVOUS SYSTEM: Alert and oriented -3. No focal deficits, tone is normal in all 4 extremities. PSYCHIATRIC: Alert and oriented -3. Appropriate affect. Intact judgment and insight. - Labs CBC & Chem 7: 04/08/20 08:22 04/08/20 08:22 Labs: Abnormal Lab Results - Last 24 Hours (Table) 02/11/21 02/15/21 02/15/21 Range/Units 11:36 16:06 20:20 WBC (3.8-10.6) k/uL RBC (3.80-5.40) m/uL Hgb (11.4-16.0) gm/dL Hct (34.0-46.0) % MCHC (31.0-37.0) g/dL RDW (11.5-15.5) % Neutrophils # (1.3-7.7) k/uL PT (9.0-12.0) sec INR (<1.2) Carbon Dioxide (22-30) mmol/L BUN (7-17) mg/dL Creatinine (0.52-1.04) mg/dL Glucose (74-99) mg/dL POC Glucose (mg/dL) 154 H 115 H (75-99) mg/dL Procalcitonin 0.54 H (0.02-0.09) ng/mL 04/08/20 04/08/20 04/08/20 Range/Units 06:58 08:22 08:22 WBC (3.8-10.6) k/uL RBC (3.80-5.40) m/uL Hgb (11.4-16.0) gm/dL Hct (34.0-46.0) % MCHC (31.0-37.0) g/dL RDW (11.5-15.5) % Neutrophils # (1.3-7.7) k/uL PT 15.9 H (9.0-12.0) sec INR 1.6 H (<1.2) Carbon Dioxide 31 H (22-30) mmol/L BUN 58 H (7-17) mg/dL Creatinine 1.31 H (0.52-1.04) mg/dL Glucose 154 H (74-99) mg/dL POC Glucose (mg/dL) 110 H (75-99) mg/dL Procalcitonin (0.02-0.09) ng/mL 04/08/20 04/08/20 Range/Units 08:22 11:57 WBC 11.1 H (3.8-10.6) k/uL RBC 3.54 L (3.80-5.40) m/uL Hgb 9.4 L (11.4-16.0) gm/dL Hct 30.9 L (34.0-46.0) % MCHC 30.5 L (31.0-37.0) g/dL RDW 18.1 H (11.5-15.5) % Neutrophils # 7.9 H (1.3-7.7) k/uL PT (9.0-12.0) sec INR (<1.2) Carbon Dioxide (22-30) mmol/L BUN (7-17) mg/dL Creatinine (0.52-1.04) mg/dL Glucose (74-99) mg/dL POC Glucose (mg/dL) 212 H (75-99) mg/dL Procalcitonin (0.02-0.09) ng/mL Microbiology - Last 24 Hours (Table) 04/03/20 11:36 Blood Culture - Preliminary Blood No Growth after 120 hours Assessment and Plan Assessment: Impression: Acute exacerbation of COPD Acute tracheobronchitis secondary to pseudomonas aeruginosa. Acute on chronic hypoxic respiratory failure secondary to above. Acute on chronic kidney injury, improving in spite of diuretics. Paroxysmal atrial fibrillation. Chronic hypoxic respiratory failure maintained on option at 2 L/m. Type 2 diabetes. Benign essential hypertension. Hypothyroidism. Secondary pulmonary hypertension. Medical debility, patient is unable to ambulate on her own at home. Recommendation: Continue antibiotics Continue bronchodilators. Continue close monitoring of renal status. Continue DuoNeb. Continue Coumadin. We will clear the patient for discharge tomorrow on her usual bronchodilators, antibiotics, steroids, prednisone to be tapered on outpatient basis over 3 weeks. Will reassess in a.m. and possibly again discharge home tomorrow Time with Patient: Less than 30
[2020-04-08] MEDS: TRIAMCINOLONE ACET 0.1% OINTMENT 15 GM TUBE TOPICAL SCH ×2 (16:43→21:14)
[2020-04-08 17:04] LABS: Glucose,Whole Blood 199 mg/dL (75-99)
[2020-04-08] MEDS ORDERED: WARFARIN 5 MG TAB PO ONE (18:00)
[2020-04-08 20:56] LABS: Glucose,Whole Blood 226 mg/dL (75-99)
[2020-04-09] MEDS: hydrALAZINE HCL 20 MG/ML 1 ML VIAL IVP PRN (03:29)
[2020-04-09] MEDS: ALPRAZolam 0.5 MG TAB PO PRN ×3 (04:27→21:41)
[2020-04-09] MEDS: LEVOTHYROXINE 50 MCG TAB PO SCH (06:34)
[2020-04-09] MEDS: PANTOPRAZOLE 40 MG TABLET PO SCH (06:34)
[2020-04-09 07:16] LABS: Glucose,Whole Blood 156 mg/dL (75-99)
[2020-04-09] MEDS: INSULIN DETEMIR (LEVEMIR) 100 UNIT/ML SYR SQ SCH (07:16)
[2020-04-09] MEDS: INSULIN ASPART (NovoLOG) 100 UNIT/ML VIAL SQ SCH ×7 (07:16→21:42)
[2020-04-09] MEDS: SYMBICORT 160-4.5 MCG INHALER INHALATION SCH ×2 (08:02→20:30)
[2020-04-09] MEDS: IPRATROPIUM-ALBUTEROL 3 ML NEB INHALATION SCH ×4 (08:02→20:30)
[2020-04-09 08:38] LABS: INR 1.9 (<1.2); Prothrombin Time 18.3 sec (9.0-12.0)
--- NOTE | 2020-04-09 09:03 | P.PN ---
Subjective Progress Note Date: 04/09/20 Principal diagnosis: Heart failure with preserved ejection fraction exacerbation This is a 74-year-old female patient with extensive past medical history who was admitted to the hospital with acute exacerbation of chronic diastolic heart failure as well as chronic obstructive pulmonary disease. The patient also does have paroxysmal atrial fibrillation. The patient was seen today. She is feeling overall better. On examination she still have bilateral expiratory wheezing. She still have bilateral lower except is nonpitting edema beach she continues to be on Lasix IV and that has been managed by the nephrology service. No PND this morning. She denies any symptoms of chest pain or chest discomfort at this point. Overall she feels slightly better. Also I am going to increase the dose of hydralazine because the pressure continues to be elevated Objective - Vital Signs Vital signs: Vital Signs Temp 97.9 F 04/09/20 03:50 Pulse 80 04/09/20 08:13 Resp 20 04/09/20 03:50 BP 157/66 04/09/20 04:00 Pulse Ox 99 04/09/20 03:50 Intake & Output 04/08/20 04/09/20 04/09/20 18:59 06:59 18:59 Intake Total 970 240 180 Output Total 2125 900 400 Balance -1155 -660 -220 Weight 115.6 kg Intake: Intake, IV Titration 150 Amount Cefepime 1 gm In Sodium 50 Chloride 0.9% 50 ml @ 12. 5 mls/hr IVPB Q12HR JS Rx#:[id number] Sodium Ferric Gluconat- 100 Sucrose 125 mg In Sodium Chloride 0.9% 100 ml @ 100 mls/hr IVPB DAILY [facility] Rx#:[id number] Oral 820 240 180 Output: Urine 2125 900 400 Uretheral (Brooks) 600 Other: Voiding Method Toilet Toilet # Voids 2 2 - Constitutional General appearance: Present: no acute distress - Respiratory Respiratory: bilateral: wheezing - Cardiovascular Heart sounds: normal: S1, S2 - Labs CBC & Chem 7: 04/08/20 08:22 04/08/20 08:22 Labs: Abnormal Lab Results - Last 24 Hours (Table) 04/03/20 04/08/20 04/08/20 Range/Units 11:36 08:22 08:22 WBC (3.8-10.6) k/uL RBC (3.80-5.40) m/uL Hgb (11.4-16.0) gm/dL Hct (34.0-46.0) % MCHC (31.0-37.0) g/dL RDW (11.5-15.5) % Neutrophils # (1.3-7.7) k/uL PT 15.9 H (9.0-12.0) sec INR 1.6 H (<1.2) Carbon Dioxide 31 H (22-30) mmol/L BUN 58 H (7-17) mg/dL Creatinine 1.31 H (0.52-1.04) mg/dL Glucose 154 H (74-99) mg/dL POC Glucose (mg/dL) (75-99) mg/dL Procalcitonin 0.54 H (0.02-0.09) ng/mL 04/08/20 04/08/20 04/08/20 Range/Units 08:22 11:57 17:02 WBC 11.1 H (3.8-10.6) k/uL RBC 3.54 L (3.80-5.40) m/uL Hgb 9.4 L (11.4-16.0) gm/dL Hct 30.9 L (34.0-46.0) % MCHC 30.5 L (31.0-37.0) g/dL RDW 18.1 H (11.5-15.5) % Neutrophils # 7.9 H (1.3-7.7) k/uL PT (9.0-12.0) sec INR (<1.2) Carbon Dioxide (22-30) mmol/L BUN (7-17) mg/dL Creatinine (0.52-1.04) mg/dL Glucose (74-99) mg/dL POC Glucose (mg/dL) 212 H 199 H (75-99) mg/dL Procalcitonin (0.02-0.09) ng/mL 04/08/20 04/09/20 04/09/20 Range/Units 20:55 07:13 07:52 WBC (3.8-10.6) k/uL RBC (3.80-5.40) m/uL Hgb (11.4-16.0) gm/dL Hct (34.0-46.0) % MCHC (31.0-37.0) g/dL RDW (11.5-15.5) % Neutrophils # (1.3-7.7) k/uL PT 18.3 H (9.0-12.0) sec INR 1.9 H (<1.2) Carbon Dioxide (22-30) mmol/L BUN (7-17) mg/dL Creatinine (0.52-1.04) mg/dL Glucose (74-99) mg/dL POC Glucose (mg/dL) 226 H 156 H (75-99) mg/dL Procalcitonin (0.02-0.09) ng/mL Microbiology - Last 24 Hours (Table) 04/03/20 11:36 Blood Culture - Preliminary Blood No Growth after 120 hours Assessment and Plan Assessment: Assessment #1 acute exacerbation of heart failure with his preserved ejection fraction #2 acute exacerbation of chronic obstructive pulmonary disease #3 possible underlying pneumonia #4 paroxysmal atrial fibrillation #5 multiple comorbid conditions Plan #1 continue the IV Lasix. Nephrology is on the case #2 increase the dose of hydralazine because the pressure continues to be elevated #3 follow-up with the patient
[2020-04-09] MEDS: CITALOPRAM HYDROBROMIDE 20 MG TAB PO SCH (09:25)
[2020-04-09] MEDS: FUROSEMIDE 10 MG/ML 4 ML VIAL IV SCH (09:25)
[2020-04-09] MEDS: SODIUM FERRIC GLUCONAT-SUCROSE 125 MG in SODIUM CHLORIDE 0.9% 100 ML IVPB SCH (09:25)
[2020-04-09] MEDS: ASPIRIN 81 MG PO SCH (09:25)
[2020-04-09] MEDS: METOPROLOL TARTRATE 50 MG TAB PO SCH ×2 (09:25→21:42)
[2020-04-09] MEDS: hydrALAZINE HCL 50 MG TAB PO SCH ×3 (09:26→21:42)
[2020-04-09] MEDS: ATORVASTATIN 10 MG TAB PO SCH (09:26)
[2020-04-09] MEDS: predniSONE 20 MG TAB PO SCH (09:26)
[2020-04-09] MEDS: valACYclovir HCL 1,000 MG TABLET PO SCH ×2 (09:26→23:01)
[2020-04-09] MEDS: DILTIAZEM CD 180 MG CAP.ER.24H PO SCH (09:26)
--- NOTE | 2020-04-09 09:29 | P.PN ---
Subjective Patient is seen in follow-up for acute kidney injury. Renal function continues to improve. Creatinine 1.3 as of yesterday. Today's labs pending. Potassium level also normal. Nonoliguric. She is maintained on IV Lasix. Currently sitting up in chair. No active chest pain or shortness of breath. Oral intake is fair. Vital signs are stable. General: The patient appeared well nourished and normally developed. HEENT: Head exam is unremarkable. LUNGS: Breath sounds decreased. Scattered wheezing. HEART: Rate and Rhythm are regular. ABDOMEN: Soft, nontender. Obese. EXTREMITITES: 1+ edema. Objective - Vital Signs Vital signs: Vital Signs Temp 97.9 F 04/09/20 03:50 Pulse 80 04/09/20 08:13 Resp 20 04/09/20 03:50 BP 157/66 04/09/20 04:00 Pulse Ox 99 04/09/20 03:50 Intake & Output 04/08/20 04/09/20 04/09/20 18:59 06:59 18:59 Intake Total 970 240 180 Output Total 2125 900 400 Balance -1155 -660 -220 Weight 115.6 kg Intake: Intake, IV Titration 150 Amount Cefepime 1 gm In Sodium 50 Chloride 0.9% 50 ml @ 12. 5 mls/hr IVPB Q12HR JS Rx#:[id number] Sodium Ferric Gluconat- 100 Sucrose 125 mg In Sodium Chloride 0.9% 100 ml @ 100 mls/hr IVPB DAILY JS Rx#:[id number] Oral 820 240 180 Output: Urine 2125 900 400 Uretheral (Brooks) 600 Other: Voiding Method Toilet Toilet # Voids 2 2 - Labs CBC & Chem 7: 04/08/20 08:22 04/08/20 08:22 Labs: Abnormal Lab Results - Last 24 Hours (Table) 04/03/20 04/08/20 04/08/20 Range/Units 11:36 08:22 08:22 WBC (3.8-10.6) k/uL RBC (3.80-5.40) m/uL Hgb (11.4-16.0) gm/dL Hct (34.0-46.0) % MCHC (31.0-37.0) g/dL RDW (11.5-15.5) % Neutrophils # (1.3-7.7) k/uL PT 15.9 H (9.0-12.0) sec INR 1.6 H (<1.2) Carbon Dioxide 31 H (22-30) mmol/L BUN 58 H (7-17) mg/dL Creatinine 1.31 H (0.52-1.04) mg/dL Glucose 154 H (74-99) mg/dL POC Glucose (mg/dL) (75-99) mg/dL Procalcitonin 0.54 H (0.02-0.09) ng/mL 04/08/20 04/08/20 04/08/20 Range/Units 08:22 11:57 17:02 WBC 11.1 H (3.8-10.6) k/uL RBC 3.54 L (3.80-5.40) m/uL Hgb 9.4 L (11.4-16.0) gm/dL Hct 30.9 L (34.0-46.0) % MCHC 30.5 L (31.0-37.0) g/dL RDW 18.1 H (11.5-15.5) % Neutrophils # 7.9 H (1.3-7.7) k/uL PT (9.0-12.0) sec INR (<1.2) Carbon Dioxide (22-30) mmol/L BUN (7-17) mg/dL Creatinine (0.52-1.04) mg/dL Glucose (74-99) mg/dL POC Glucose (mg/dL) 212 H 199 H (75-99) mg/dL Procalcitonin (0.02-0.09) ng/mL 04/08/20 04/09/20 04/09/20 Range/Units 20:55 07:13 07:52 WBC (3.8-10.6) k/uL RBC (3.80-5.40) m/uL Hgb (11.4-16.0) gm/dL Hct (34.0-46.0) % MCHC (31.0-37.0) g/dL RDW (11.5-15.5) % Neutrophils # (1.3-7.7) k/uL PT 18.3 H (9.0-12.0) sec INR 1.9 H (<1.2) Carbon Dioxide (22-30) mmol/L BUN (7-17) mg/dL Creatinine (0.52-1.04) mg/dL Glucose (74-99) mg/dL POC Glucose (mg/dL) 226 H 156 H (75-99) mg/dL Procalcitonin (0.02-0.09) ng/mL Microbiology - Last 24 Hours (Table) 04/03/20 11:36 Blood Culture - Preliminary Blood No Growth after 120 hours Assessment and Plan Plan: Assessment: 1. Acute kidney injury secondary to ATN secondary to cardiorenal syndrome. Creatinine near 1 from Jan 2020 - peaked at 3.4 this admission and down to 1.31 as of yesterday. No hydronephrosis noted on kidney ultrasound but the right kidney is noted to be small in size. 2. Acute on chronic diastolic CHF with moderate to severe tricuspid regurgitation and severe pulmonary hypertension. 3. Diabetes mellitus. 4. Hyperkalemia secondary to acute kidney injury and hyperglycemia . Better. 5. COPD exacerbation with pseudomonas colonization. Pulmonology following. 6. Volume overload. 7. Anemia. Iron deficiency noted - status post IV iron. 8. Coagulopathy. Resolved. 9. Proteinuria. Most likely secondary to underlying diabetic kidney disease. Further workup outpatient. 10. Benign hypertension. Exacerbated by steroids. Stable. Plan: Maintain IV Lasix. Maintain Brooks catheter. Strict I's and O's. Avoid nephrotoxins. Continue to monitor renal function and urine output. Tight blood sugar control. Morning labs pending.
[2020-04-09] MEDS: CEFEPIME 1 GM in SODIUM CHLORIDE 0.9% 50 ML IVPB SCH ×2 (09:36→21:42)
[2020-04-09] MEDS: TRIAMCINOLONE ACET 0.1% OINTMENT 15 GM TUBE TOPICAL SCH ×2 (09:36→23:01)
[2020-04-09 09:52] LABS: Calcium 9.2 mg/dL (8.4-10.2); Magnesium 1.9 mg/dL (1.6-2.3); Potassium 4.1 mmol/L (3.5-5.1)
--- NOTE | 2020-04-09 11:50 | P.PN ---
Subjective Progress Note Date: 04/09/20 74-year-old female patient with chronic COPD/asthma, diabetes, chronic stage III kidney disease, chronic atrial fibrillation, diastolic heart failure with multiple hospitalizations in the past due to pulmonary complications of recurrent infection including infections with Pseudomonas. Other comorbidities include hypothyroidism, hiatal hernia and obesity. The patient was recently discharged from the hospital and she had a hospitalization and she was discharged home on January [id number] , and acute exacerbation of her chronic COPD/asthma secondary to pseudomonas aeruginosa. After being treated, the patient was discharged home. The patient came in yesterday to the emergency complaining of feeling worsening shortness of breath, cough and congestion and same time her appetite was down and she was having increased hardness and sweating. The patient has been enrolled in hospice care and she has been followed up by [facility]. I reviewed the home medications and the patient was placed on high-dose prednisone that she's been taking for at least 2 months for now at a dose of 50 mg by mouth daily. She is also on DuoNeb nebulized treatments around the clock, Lantus insulin 30 units daily along with his vascular coverage. She was also being given morphine an as-needed basis for shortness of breath and breathlessness at a dose of 5 mg every fours hours on a when necessary basis. She is on tramadol for pain control and she takes warfarin as a long-term anticoagulants. While at home, she was getting progressively more debilitated. She tried to get up and she was trying to look to the bathroom and she fell. The hospice nurses end up sending her here to the hospital for further evaluation. A CAT scan of the brain was done and was negative. An x-ray of the shoulder was done that was negative. INR was at was at 2.7 and there was no evidence of any acute bleeding. On 04/05/2020, the patient is resting comfortably in bed. No significant respiratory distress. I feel that her breathing is slightly improved compared to yesterday. She does have a congested cough. Ongoing issues for now is the acute kidney injury. The patient was seen by nephrology. IV fluids were cut down and the patient was given a dose of Lasix. She responded that she produces approximately 400 mL of urine output. Her BUN today is 104. Creatinine is at 3.4. She was given vitamin K regarding her coagulopathy her INR is down to 3.2. No significant signs of bleeding. Hemoccult was attempted 0.8. A follow-up chest x-ray was done and shows cardiomegaly. No evidence of any airspace disea se or pneumonia. The patient does have some cardiomegaly and mild pulmonary vascular congestion. Meanwhile, a repeat sputum sample is to be collected and the blood culture is negative for now. I have the patient on IV cefepime for now. She is on DuoNeb nebulized treatments around the clock. I cut down the prednisone down to 20 mg by mouth daily. Her blood sugars are under adequate control for now and she is on Levemir insulin. In fact her blood pressure blood sugar control is improved since her admission and she is currently on Levemir 30 units along with sliding scale coverage. Reevaluated today on 04/06/2020, patient continues to have intermittent episodes of cough wheezing and shortness of breath. She is quite congested, on physical examination she has significant rhonchi and wheezes noted bilaterally. Her last chest x-ray from 2 days ago showed mild pulmonary vascular congestion, and mild patchy bibasilar atelectasis. CBC is relatively normal her INR is 1.8 electrolytes are normal BUN is 96 creatinine is 2.58. Patient remains on bronchodilators, remains on prednisone 20 mg daily, and she is on cefepime for her pseudomonal infection Patient was reevaluated today on 04/07/2020, feeling better, breathing easier, continues to have intermittent cough and wheezing, but overall she seems better, patient seems to be quite edematous, maintain on Lasix. Electrolytes are normal BUN is improved down to 78 and creatinine is improved down to 1.74. CBC is relatively normal. Reevaluated today on 04/08/2020, patient continues to have intermittent cough and wheezing, tells me she is about the same as yesterday, patient remains on bronchodilators, her renal functioning is improving her overall pulmonary status is slightly improved. And I have a feeling that the patient could be considered for discharge planning in the next 24 hours. Remains on antibiotics and [facility] hodilators. Labs today were reviewed creatinine is down to 1.31 hemoglobin is 58 CBC is relatively normal last chest x-ray showed patchy bibasilar atelectasis/possible infiltrates in the lower lobes. The patient is seen today 04/09/2020 in follow-up on the selective care unit. She is currently sitting up in a chair at the bedside. Awake and alert in no acute distress. Maintaining O2 saturations in the 90s on 3 L/m per nasal cannula. She's been afebrile. Hemodynamically stable. Blood cultures reveal no growth. INR 1.9. Sodium 142. Potassium 4.1. Creatinine 1.26. Glucose 175. She remains on Symbicort, DuoNeb inhalations, prednisone. Antibiotics in the form of ceftriaxone. IV diuretics. Objective - Vital Signs Vital signs: Vital Signs Temp 97.6 F 04/09/20 08:00 Pulse 76 04/09/20 11:39 Resp 18 04/09/20 08:00 BP 164/73 04/09/20 08:00 Pulse Ox 100 04/09/20 08:00 Intake & Output 04/08/20 04/09/20 04/09/20 18:59 06:59 18:59 Intake Total 970 240 180 Output Total 2125 900 400 Balance -3825 -660 -220 Weight 115.6 kg Intake: Intake, IV Titration 150 Amount Cefepime 1 gm In Sodium 50 Chloride 0.9% 50 ml @ 12. 5 mls/hr IVPB Q12HR JS Rx#:[id number] Sodium Ferric Gluconat- 100 Sucrose 125 mg In Sodium Chloride 0.9% 100 ml @ 100 mls/hr IVPB DAILY JS Rx#:[id number] Oral 820 240 180 Output: Urine 2125 900 400 Uretheral (Brooks) 600 Other: Voiding Method Toilet Toilet # Voids 2 2 - Exam GENERAL EXAM: 74-year-old female on 3 L nasal cannula, up in a chair at the bedside, no acute distress HEENT: PERRLA, EOMI, nonicteric, no neck masses, no JVD, no stridor, moist mucous membranes CHEST: No chest wall deformity. Symmetrical expansion. LUNGS: Wheezing on forced expiratory maneuver noted. Fine crackles at the bases. CVS: Regular rate and rhythm, normal S1 and S2, no gallops, no murmurs, no rubs ABDOMEN: Soft, nontender. No hepatosplenomegaly, normal bowel sounds, no guarding or rigidity. EXTREMITIES: No clubbing, chronic venous stasis changes involving lower extremities, and increase pretibial edema, no cyanosis, 2+ pulses and upper and lower extremities. There may be also some cellulitis in the lower extremities more so on the left as the area between the ankle and the knee on the left is quite warm and erythematous. No open wounds or sores. MUSCULOSKELETAL: Muscle strength and tone normal. SPINE: No scoliosis or deformity SKIN: No rashes, areas of bruises in her right upper extremity elbow area, right lateral posterior chest and abdominal wall. No bruises over the lower extremities. CENTRAL NERVOUS SYSTEM: Alert and oriented -3. No focal deficits, tone is normal in all 4 extremities. PSYCHIATRIC: Alert and oriented -3. Appropriate affect. Intact judgment and insight. - Labs CBC & Chem 7: 04/08/20 08:22 04/09/20 07:52 Labs: Abnormal Lab Results - Last 24 Hours (Table) 04/08/20 04/08/20 04/08/20 Range/Units 11:57 17:02 20:55 PT (9.0-12.0) sec INR (<1.2) Carbon Dioxide (22-30) mmol/L BUN (7-17) mg/dL Creatinine (0.52-1.04) mg/dL Glucose (74-99) mg/dL POC Glucose (mg/dL) 212 H 199 H 226 H (75-99) mg/dL 04/09/20 04/09/20 04/09/20 Range/Units 07:13 07:52 07:52 PT 18.3 H (9.0-12.0) sec INR 1.9 H (<1.2) Carbon Dioxide 31 H (22-30) mmol/L BUN 49 H (7-17) mg/dL Creatinine 1.36 H (0.52-1.04) mg/dL Glucose 175 H (74-99) mg/dL POC Glucose (mg/dL) 156 H (75-99) mg/dL Microbiology - Last 24 Hours (Table) 04/03/20 11:36 Blood Culture - Preliminary Blood No Growth after 120 hours Assessment and Plan Assessment: 1 Acute exacerbation of COPD 2 Acute tracheobronchitis secondary to pseudomonas aeruginosa. 3 Acute on chronic hypoxic respiratory failure secondary to above. 4 Acute on chronic kidney injury, improving in spite of diuretics. 5 Paroxysmal atrial fibrillation. 6 Chronic hypoxic respiratory failure maintained on option at 2 L/m. 7 Type 2 diabetes. 8 Benign essential hypertension. 9 Hypothyroidism. 10 Secondary pulmonary hypertension. 11 Medical debility, patient is unable to ambulate on her own at home. Plan: The patient was seen and evaluated by Dr. Chow Cleared for discharge from the pulmonary standpoint Continue Symbicort and DuoNeb inhalations Complete prednisone taper Anticoagulated with warfarin I, the cosigning physician, performed a history & physical examination of the patient. Lungs sounds with end expiratory wheeze, faint crackles in the poste rior bases. Maintaining good O2 saturations in the 90s on 3 L/m per nasal cannula. I discussed the assessment and plan of care with my nurse practitioner, Su Arias. I attest to the above note as dictated by her.
[2020-04-09 11:57] LABS: Glucose,Whole Blood 218 mg/dL (75-99)
[2020-04-09 15:01] VITALS: BMI 39.9
--- NOTE | 2020-04-09 15:03 | PN ---
PROGRESS NOTE DATE OF SERVICE: 04/09/2020 This 74-year-old woman who was admitted with COPD acute exacerbation also had multiple other medical problems. The patient is willing for rehab at this time. PT, OT is evaluating the patient. No chest pain. No palpitations. No fever. PHYSICAL EXAMINATION: The patient is alert and oriented x3. Pulse 74, blood pressure 153/70, respiration 20, temperature 98 degrees, pulse ox 98% on 2 L. HEENT: Conjunctivae normal. NECK: No jugular venous distention. CARDIOVASCULAR: S1, S2 muffled. RESPIRATORY: Breath sounds diminished at the bases. A few scattered rhonchi and crackles. ABDOMEN: Soft, nontender. LEGS: No edema, no swelling. NERVOUS SYSTEM: No focal deficits. LABS: WBC 11.1. INR 1.9. ASSESSMENT: 1. Chronic obstructive pulmonary disease and bronchial asthma acute exacerbation with bibasilar pneumonia, possibly hospital-acquired pneumonia with Pseudomonas. 2. Acute on chronic hypoxic respiratory failure. 3. Acute kidney injury with acute tubular necrosis. 4. Hyperkalemia on presentation secondary to renal failure. 5. Chronic diastolic congestive heart failure with ejection fraction 50% to 55%. 6. Coagulopathy secondary to Coumadin toxicity. 7. Paroxysmal atrial fibrillation. 8. Fall and gait dysfunction. 9. Diabetes mellitus type 2. 10.Hypertension. 11.Hypothyroidism. 12.History of lung disease possibly. 13.Moderate to severe pulmonary hypertension. 14.Chronic hypoxic respiratory failure on 2 L nasal cannula. 15.Gait dysfunction. 16.Obesity with body mass index of 39.9. 17.FULL CODE. RECOMMENDATIONS AND DISCUSSION: Recommend to continue current medications, continue with monitoring and symptomatic treatment. Otherwise bronchodilators. Repeat labs. PT, OT evaluation. Guarded prognosis. Further recommendations to follow. MMODL / IJN: [id number] /
[2020-04-09 16:53] LABS: Glucose,Whole Blood 136 mg/dL (75-99)
[2020-04-09] MEDS ORDERED: WARFARIN 5 MG TAB PO ONE (18:00)
[2020-04-09] MEDS: hydrALAZINE HCL 25 MG TAB PO SCH (20:10)
[2020-04-09 20:45] LABS: Glucose,Whole Blood 231 mg/dL (75-99)
[2020-04-10] MEDS: LEVOTHYROXINE 50 MCG TAB PO SCH (06:36)
[2020-04-10 07:01] LABS: Glucose,Whole Blood 180 mg/dL (75-99)
[2020-04-10] MEDS: INSULIN ASPART (NovoLOG) 100 UNIT/ML VIAL SQ SCH ×7 (07:33→21:39)
[2020-04-10] MEDS: PANTOPRAZOLE 40 MG TABLET PO SCH (07:33)
[2020-04-10] MEDS: INSULIN DETEMIR (LEVEMIR) 100 UNIT/ML SYR SQ SCH (07:34)
[2020-04-10] MEDS: IPRATROPIUM-ALBUTEROL 3 ML NEB INHALATION SCH ×4 (08:03→20:26)
[2020-04-10] MEDS: SYMBICORT 160-4.5 MCG INHALER INHALATION SCH ×2 (08:03→20:26)
[2020-04-10 08:59] LABS: Basophils # (A) 0.02 X 10*3/uL (0.00-0.10); Basophils % (A) 0.1 %; Eosinophils # (A) 0.01 X 10*3/uL (0.04-0.35); Eosinophils % (A) 0.1 %; HCT 29.4 % (37.2-46.3); HGB 8.7 g/dL (12.0-15.0); Lymphocytes # (A) 2.06 X 10*3/uL (0.90-5.00); Lymphocytes % (A) 14.3 %; MCH 26.6 pg (27.0-32.0); MCHC 29.6 g/dL (32.0-37.0); MCV 89.9 fL (80.0-97.0); Mean Platelet Volume 9.7 fL (9.5-12.2); Monocytes # (A) 0.91 X 10*3/uL (0.20-1.00); Monocytes % (A) 6.3 %; Neutrophils # (A) 11.36 X 10*3/uL (1.80-7.70); Neutrophils % (A) 78.8 %; Platelet Count 138 X 10*3/uL (140-440); RBC 3.27 X 10*6/uL (4.10-5.20); RDW 18.5 % (11.5-14.5); WBC 14.42 X 10*3/uL (4.50-10.00)
[2020-04-10 09:07] LABS: INR 2.13 (0.90-1.11); Prothrombin Time 22.1 sec (9.9-11.9)
[2020-04-10] MEDS: CITALOPRAM HYDROBROMIDE 20 MG TAB PO SCH (09:21)
[2020-04-10] MEDS: ATORVASTATIN 10 MG TAB PO SCH (09:21)
[2020-04-10] MEDS: ALPRAZolam 0.5 MG TAB PO PRN ×3 (09:21→21:40)
[2020-04-10] MEDS: ASPIRIN 81 MG PO SCH (09:22)
[2020-04-10] MEDS: hydrALAZINE HCL 50 MG TAB PO SCH ×3 (09:22→21:40)
[2020-04-10] MEDS: TRIAMCINOLONE ACET 0.1% OINTMENT 15 GM TUBE TOPICAL SCH ×2 (09:25→21:40)
[2020-04-10] MEDS: FUROSEMIDE 10 MG/ML 4 ML VIAL IV SCH (09:25)
[2020-04-10] MEDS: METOPROLOL TARTRATE 50 MG TAB PO SCH ×3 (09:33→21:40)
[2020-04-10] MEDS: DILTIAZEM CD 180 MG CAP.ER.24H PO SCH (09:33)
[2020-04-10 09:40] LABS: African American GFR (CKD) 52.3 (60.0-200.0); Anion Gap 8.2 mmol/L (4.00-12.00); BUN/Creat Ratio 33.33 Ratio (12.00-20.00); Calcium 8.7 mg/dL (8.7-10.3); Carbon Dioxide 29.8 mmol/L (21.6-31.8); Magnesium 1.7 mg/dL (1.5-2.4); Non-African American GFR(CKD) 45.1 (60.0-200.0); Potassium 4.1 mmol/L (3.5-5.5)
[2020-04-10] MEDS: valACYclovir HCL 1,000 MG TABLET PO SCH ×2 (10:44→21:53)
[2020-04-10] MEDS: predniSONE 20 MG TAB PO SCH (10:47)
--- NOTE | 2020-04-10 10:49 | P.PN ---
Subjective Patient is seen in follow-up for acute kidney injury. Renal function continues to improve. Creatinine 1.2. Nonoliguric. She is maintained on IV Lasix. Currently sitting up in chair. No active chest pain or shortness of breath. Oral intake is fair. Urine output documented is over 3 L in the last 24 hours. Vital signs are stable. General: The patient appeared well nourished and normally developed. HEENT: Head exam is unremarkable. LUNGS: Breath sounds decreased. Scattered wheezing. HEART: Rate and Rhythm are regular. ABDOMEN: Soft, nontender. Obese. EXTREMITITES: 1+ edema. Objective - Vital Signs Vital signs: Vital Signs Temp 97.7 F 04/10/20 07:26 Pulse 76 04/10/20 08:17 Resp 18 04/10/20 07:26 BP 163/79 04/10/20 07:26 Pulse Ox 97 04/10/20 07:26 Intake & Output 04/09/20 04/10/20 04/10/20 18:59 06:59 18:59 Intake Total 1200 Output Total 1700 Balance -500 Weight 115.6 kg 116.6 kg Intake: Oral 1200 Output: Urine 1700 Other: Voiding Method Bedside Commode # Voids 1 - Labs CBC & Chem 7: 04/10/20 05:53 04/10/20 05:53 Labs: Abnormal Lab Results - Last 24 Hours (Table) 04/09/20 04/09/20 04/09/20 Range/Units 11:55 16:51 20:42 WBC (4.50-10.00) X 10*3/uL RBC (4.10-5.20) X 10*6/uL Hgb (12.0-15.0) g/dL Hct (37.2-46.3) % MCH (27.0-32.0) pg MCHC (32.0-37.0) g/dL RDW (11.5-14.5) % Plt Count (140-440) X 10*3/uL Immature Gran # (0.00-0.04) X 10*3/uL Neutrophils # (1.80-7.70) X 10*3/uL Eosinophils # (0.04-0.35) X 10*3/uL PT (9.9-11.9) sec INR (0.90-1.11) BUN (9.0-27.0) mg/dL Est GFR (CKD-EPI)AfAm (60.0-200.0) Est GFR (CKD-EPI)NonAf (60.0-200.0) BUN/Creatinine Ratio (12.00-20.00) Ratio Glucose (70-110) mg/dL POC Glucose (mg/dL) 218 H 136 H 231 H (75-99) mg/dL 04/10/20 04/10/20 04/10/20 Range/Units 05:53 05:53 05:53 WBC 14.42 H (4.50-10.00) X 10*3/uL RBC 3.27 L (4.10-5.20) X 10*6/uL Hgb 8.7 L (12.0-15.0) g/dL Hct 29.4 L (37.2-46.3) % MCH 26.6 L (27.0-32.0) pg MCHC 29.6 L (32.0-37.0) g/dL RDW 18.5 H (11.5-14.5) % Plt Count 138 L (140-440) X 10*3/uL Immature Gran # 0.06 H (0.00-0.04) X 10*3/uL Neutrophils # 11.36 H (1.80-7.70) X 10*3/uL Eosinophils # 0.01 L (0.04-0.35) X 10*3/uL PT 22.1 H (9.9-11.9) sec INR 2.13 H (0.90-1.11) BUN 40.0 H (9.0-27.0) mg/dL Est GFR (CKD-EPI)AfAm 52.3 L (60.0-200.0) Est GFR (CKD-EPI)NonAf 45.1 L (60.0-200.0) BUN/Creatinine Ratio 33.33 H (12.00-20.00) Ratio Glucose 170 H (70-110) mg/dL POC Glucose (mg/dL) (75-99) mg/dL 04/10/20 Range/Units 06:59 WBC (4.50-10.00) X 10*3/uL RBC (4.10-5.20) X 10*6/uL Hgb (12.0-15.0) g/dL Hct (37.2-46.3) % MCH (27.0-32.0) pg MCHC (32.0-37.0) g/dL RDW (11.5-14.5) % Plt Count (140-440) X 10*3/uL Immature Gran # (0.00-0.04) X 10*3/uL Neutrophils # (1.80-7.70) X 10*3/uL Eosinophils # (0.04-0.35) X 10*3/uL PT (9.9-11.9) sec INR (0.90-1.11) BUN (9.0-27.0) mg/dL Est GFR (CKD-EPI)AfAm (60.0-200.0) Est GFR (CKD-EPI)NonAf (60.0-200.0) BUN/Creatinine Ratio (12.00-20.00) Ratio Glucose (70-110) mg/dL POC Glucose (mg/dL) 180 H (75-99) mg/dL Microbiology - Last 24 Hours (Table) 04/03/20 11:36 Blood Culture - Final Blood No Growth after 144 hours Assessment and Plan Plan: Assessment: 1. Acute kidney injury secondary to ATN secondary to cardiorenal syndrome. Creatinine near 1 from Jan 2020 - peaked at 3.4 this admission and down to 1.2 today. No hydronephrosis noted on kidney ultrasound but the right kidney is noted to be small in size. 2. Acute on chronic diastolic CHF with moderate to severe tricuspid regurgitation and severe pulmonary hypertension. 3. Diabetes mellitus. 4. Hyperkalemia secondary to acute kidney injury and hyperglycemia . Better. 5. COPD exacerbation with pseudomonas colonization. Pulmonology following. 6. Volume overload. 7. Anemia. Iron deficiency noted - status post IV iron. 8. Coagulopathy. Resolved. 9. Proteinuria. Most likely secondary to underlying diabetic kidney disease. Further workup outpatient. 10. Benign hypertension. Exacerbated by steroids. Medications adjusted by cardiology today. Plan: Maintain IV Lasix - I will give her an extra dose this evening. Maintain Brooks catheter. Strict I's and O's. Avoid nephrotoxins. Continue to monitor renal function and urine output. Tight blood sugar control.
--- NOTE | 2020-04-10 11:05 | P.PN ---
Subjective This is a pleasant 74-year-old female past medical history significant for chronic diastolic heart failure, COPD, paroxysmal atrial fibrillation on long-term anticoagulation, diabetes mellitus, hypertension and chronic kidney disease. She follows in the office with Dr. Pruett. She is seen and examined sitting up in the recliner in no acute distress. She states her breathing is stable with no significant worsening over the previous 24 hours. She denies chest pain, dizziness or palpitations. Currently maintained on IV lasix per nephrology. 24-hr urine output 1700 ml, maintaining a negative fluid balance. Blood pressure 163/79 heart rate 76 afebrile and maintaining oxygen saturation on nasal cannula. Laboratory data reviewed, WBC 14, hemoglobin 8.7, platelets 138, INR 2.1, sodium 142, potassium 4.1, creatinine 1.2 and magnesium 1.7. GENERAL: Well-appearing, well-nourished and in no acute distress. NECK: Supple without JVD or thyromegaly. LUNGS: Breath sounds clear to auscultation bilaterally. Respiration equal and unlabored. No wheezes, rales or rhonchi. HEART: Regular rate and rhythm without murmurs, rubs or gallops. S1 and S2 heard. EXTREMITIES: Normal range of motion, 1+ pitting edema bilaterally. No clubbing or cyanosis. Peripheral pulses intact. ASSESSMENT Acute on chronic heart failure with preserved ejection fraction Acute exacerbation of COPD Paroxysmal atrial fibrillation on long-term anticoagulation Acute on chronic kidney disease Supratherapeutic INR, resolved Hyperkalemia, resolved Hypertension Diabetes mellitus Dyslipidemia PLAN Discontinue diltiazem and initiate nifedipine 60 mg daily and increase lopressor to 100 mg BID. Continue to monitor blood pressure closely. IV diuretics per nephrology. Nurse Practitioner note has been reviewed, I agree with a documented findings and plan of care. Patient was seen and examined. Objective - Vital Signs Vital signs: Vital Signs Temp 97.7 F 04/10/20 07:26 Pulse 76 04/10/20 08:17 Resp 18 04/10/20 07:26 BP 163/79 04/10/20 07:26 Pulse Ox 97 04/10/20 07:26 Intake & Output 04/09/20 04/10/20 04/10/20 18:59 06:59 18:59 Intake Total 1200 Output Total 1700 Balance -500 Weight 115.6 kg 116.6 kg Intake: Oral 1200 Output: Urine 1700 Other: Voiding Method Bedside Commode # Voids 1 - Labs CBC & Chem 7: 04/10/20 05:53 04/10/20 05:53 Labs: Abnormal Lab Results - Last 24 Hours (Table) 04/09/20 04/09/20 04/09/20 Range/Units 11:55 16:51 20:42 WBC (4.50-10.00) X 10*3/uL RBC (4.10-5.20) X 10*6/uL Hgb (12.0-15.0) g/dL Hct (37.2-46.3) % MCH (27.0-32.0) pg MCHC (32.0-37.0) g/dL RDW (11.5-14.5) % Plt Count (140-440) X 10*3/uL Immature Gran # (0.00-0.04) X 10*3/uL Neutrophils # (1.80-7.70) X 10*3/uL Eosinophils # (0.04-0.35) X 10*3/uL PT (9.9-11.9) sec INR (0.90-1.11) BUN (9.0-27.0) mg/dL Est GFR (CKD-EPI)AfAm (60.0-200.0) Est GFR (CKD-EPI)NonAf (60.0-200.0) BUN/Creatinine Ratio (12.00-20.00) Ratio Glucose (70-110) mg/dL POC Glucose (mg/dL) 218 H 136 H 231 H (75-99) mg/dL 04/10/20 04/10/20 04/10/20 Range/Units 05:53 05:53 05:53 WBC 14.42 H (4.50-10.00) X 10*3/uL RBC 3.27 L (4.10-5.20) X 10*6/uL Hgb 8.7 L (12.0-15.0) g/dL Hct 29.4 L (37.2-46.3) % MCH 26.6 L (27.0-32.0) pg MCHC 29.6 L (32.0-37.0) g/dL RDW 18.5 H (11.5-14.5) % Plt Count 138 L (140-440) X 10*3/uL Immature Gran # 0.06 H (0.00-0.04) X 10*3/uL Neutrophils # 11.36 H (1.80-7.70) X 10*3/uL Eosinophils # 0.01 L (0.04-0.35) X 10*3/uL PT 22.1 H (9.9-11.9) sec INR 2.13 H (0.90-1.11) BUN 40.0 H (9.0-27.0) mg/dL Est GFR (CKD-EPI)AfAm 52.3 L (60.0-200.0) Est GFR (CKD-EPI)NonAf 45.1 L (60.0-200.0) BUN/Creatinine Ratio 33.33 H (12.00-20.00) Ratio Glucose 170 H (70-110) mg/dL POC Glucose (mg/dL) (75-99) mg/dL 04/10/20 Range/Units 06:59 WBC (4.50-10.00) X 10*3/uL RBC (4.10-5.20) X 10*6/uL Hgb (12.0-15.0) g/dL Hct (37.2-46.3) % MCH (27.0-32.0) pg MCHC (32.0-37.0) g/dL RDW (11.5-14.5) % Plt Count (140-440) X 10*3/uL Immature Gran # (0.00-0.04) X 10*3/uL Neutrophils # (1.80-7.70) X 10*3/uL Eosinophils # (0.04-0.35) X 10*3/uL PT (9.9-11.9) sec INR (0.90-1.11) BUN (9.0-27.0) mg/dL Est GFR (CKD-EPI)AfAm (60.0-200.0) Est GFR (CKD-EPI)NonAf (60.0-200.0) BUN/Creatinine Ratio (12.00-20.00) Ratio Glucose (70-110) mg/dL POC Glucose (mg/dL) 180 H (75-99) mg/dL Microbiology - Last 24 Hours (Table) 04/03/20 11:36 Blood Culture - Final Blood No Growth after 144 hours
[2020-04-10] MEDS: CEFEPIME 1 GM in SODIUM CHLORIDE 0.9% 50 ML IVPB SCH (11:25)
[2020-04-10 11:57] LABS: Glucose,Whole Blood 196 mg/dL (75-99)
--- NOTE | 2020-04-10 12:37 | P.PN ---
Subjective Progress Note Date: 04/10/20 Principal diagnosis: Acute exacerbation of COPD 74-year-old female patient with chronic COPD/asthma, diabetes, chronic stage III kidney disease, chronic atrial fibrillation, diastolic heart failure with multiple hospitalizations in the past due to pulmonary complications of recu rrent infection including infections with Pseudomonas. Other comorbidities include hypothyroidism, hiatal hernia and obesity. The patient was recently discharged from the hospital and she had a hospitalization and she was discharged home on January [id number] , and acute exacerbation of her chronic COPD/asthma secondary to pseudomonas aeruginosa. After being treated, the patient was discharged home. The patient came in yesterday to the emergency complaining of feeling worsening shortness of breath, cough and congestion and same time her appetite was down and she was having increased hardness and sweating. The patient has been enrolled in hospice care and she has been followed up by [facility]. I reviewed the home medications and the patient was placed on high-dose prednisone that she's been taking for at least 2 months for now at a dose of 50 mg by mouth daily. She is also on DuoNeb nebulized treatments around the clock, Lantus insulin 30 units daily along with his vascular coverage. She was also being given morphine an as-needed basis for shortness of breath and breathlessness at a dose of 5 mg every fours hours on a when necessary basis. She is on tramadol for pain control and she takes warfarin as a long-term anticoagulants. While at home, she was getting progre ssively more debilitated. She tried to get up and she was trying to look to the bathroom and she fell. The hospice nurses end up sending her here to the hospital for further evaluation. A CAT scan of the brain was done and was negative. An x-ray of the shoulder was done that was negative. INR was at was at 2.7 and there was no evidence of any acute bleeding. On 04/05/2020, the patient is resting comfortably in bed. No significant respiratory distress. I feel that her breathing is slightly improved compared to yesterday. She does have a congested cough. Ongoing issues for now is the a cute kidney injury. The patient was seen by nephrology. IV fluids were cut down and the patient was given a dose of Lasix. She responded that she produces approximately 400 mL of urine output. Her BUN today is 104. Creatinine is at 3.4. She was given vitamin K regarding her coagulopathy her INR is down to 3.2. No significant signs of bleeding. Hemoccult was attempted 0.8. A follow-up chest x-ray was done and shows cardiomegaly. No evidence of any airspace disease or pneumonia. The patient does have some cardiomegaly and mild pulmonary vascular congestion. Meanwhile, a repeat sputum sample is to be collected and the blood culture is negative for now. I have the patient on IV cefepime for now. She is on DuoNeb nebulized treatments around the clock. I cut down the prednisone down to 20 mg by mouth daily. Her blood sugars are under adequate control for now and she is on Levemir insulin. In fact her blood pressure blood sugar control is improved since her admission and she is currently on Levemir 30 units along with sliding scale coverage. Reevaluated today on 04/06/2020, patient continues to have intermittent episodes of cough wheezing and shortness of breath. She is quite congested, on physical examination she has significant rhonchi and wheezes noted bilaterally. Her last chest x-ray from 2 days ago showed mild pulmonary vascular congestion, and mild patchy bibasilar atelectasis. CBC is relatively normal her INR is 1.8 electrolytes are normal BUN is 96 creatinine is 2.58. Patient remains on bronchodilators, remains on prednisone 20 mg daily, and she is on cefepime for her pseudomonal infection Patient was reevaluated today on 04/07/2020, feeling better, breathing easier, continues to have intermittent cough and wheezing, but overall she seems better, patient seems to be quite edematous, maintain on Lasix. Electrolytes are normal BUN is improved down to 78 and creatinine is improved down to 1.74. CBC is relatively normal. Reevaluated today on 04/08/2020, patient continues to have intermittent cough and wheezing, tells me she is about the same as yesterday, patient remains on bronchodilators, her renal functioning is improving her overall pulmonary status is slightly improved. And I have a feeling that the patient could be considered for discharge planning in the next 24 hours. Remains on antibiotics and bronchodilators. Labs today were reviewed creatinine is down to 1.31 hemoglobin is 58 CBC is relatively normal last chest x-ray showed patchy bibasilar atelectasis/possible infiltrates in the lower lobes. The patient is seen today 04/09/2020 in follow-up on the selective care unit. She is currently sitting up in a chair at the bedside. Awake and alert in no acute distress. Maintaining O2 saturations in the 90s on 3 L/m per nasal cannula. She's been afebrile. Hemodynamically stable. Blood cultures reveal no growth. INR 1.9. Sodium 142. Potassium 4.1. Creatinine 1.26. Glucose 175. She remains on Symbicort, DuoNeb inhalations, prednisone. Antibiotics in the form of ceftriaxone. IV diuretics. On 04/10/2020 patient is seen in follow-up on medical floor, she is resting comfortably in the chair, in no acute distress, she is breathing much easier, lung sounds today reveal some scattered wheezes, she is on 2 L of oxygen and the pulse ox of 97%, hemodynamically she is stable, she has had no fever or chills, no clubbing or chest pain. Today's labs have been reviewed, white blood cell count of 14, hemoglobin is 8.7, INR is 2.1, electrolytes within normal limits, BUN of 40 creatinine is 1.2. 1+ lower extremity edema, patient is on daily dose of IV Lasix, nephrology is managing, she is on breathing treatments, bronchodilators, and oral prednisone, she is close to her baseline. He is awaiting placement to [facility] for rehab after discharge. Objective - Vital Signs Vital signs: Vital Signs Temp 97.7 F 04/10/20 07:26 Pulse 76 04/10/20 08:17 Resp 18 04/10/20 07:26 BP 163/79 04/10/20 07:26 Pulse Ox 97 04/10/20 07:26 Intake & Output 04/09/20 04/10/20 04/10/20 18:59 06:59 18:59 Intake Total 1200 Output Total 1700 Balance -500 Weight 115.6 kg 116.6 kg Intake: Oral 1200 Output: Urine 1700 Other: Voiding Method Bedside Commode # Voids 1 - Exam GENERAL EXAM: 74-year-old female on 2 L nasal cannula, up in a chair at the bedside, no acute distress HEENT: PERRLA, EOMI, nonicteric, no neck masses, no JVD, no stridor, moist mucous membranes CHEST: No chest wall deformity. Symmetrical expansion. LUNGS: Wheezing on forced expiratory maneuver noted. Fine crackles at the bases. CVS: Regular rate and rhythm, normal S1 and S2, no gallops, no murmurs, no rubs ABDOMEN: Soft, nontender. No hepatosplenomegaly, normal bowel sounds, no guarding or rigidity. EXTREMITIES: No clubbing, chronic venous stasis changes involving lower extremities, and increase pretibial edema, no cyanosis, 2+ pulses and upper and lower extremities. There may be also some cellulitis in the lower extremities more so on the left as the area between the ankle and the knee on the left is quite warm and erythematous. No open wounds or sores. MUSCULOSKELETAL: Muscle strength and tone normal. SPINE: No scoliosis or deformity SKIN: No rashes, areas of bruises in her right upper extremity elbow area, right lateral posterior chest and abdominal wall. No bruises over the lower extremities. CENTRAL NERVOUS SYSTEM: Alert and oriented -3. No focal deficits, tone is normal in all 4 extremities. PSYCHIATRIC: Alert and oriented -3. Appropriate affect. Intact judgment and insight. - Labs CBC & Chem 7: 04/10/20 05:53 04/10/20 05:53 Labs: Abnormal Lab Results - Last 24 Hours (Table) 04/09/20 04/09/20 04/10/20 Range/Units 16:51 20:42 05:53 WBC (4.50-10.00) X 10*3/uL RBC (4.10-5.20) X 10*6/uL Hgb (12.0-15.0) g/dL Hct (37.2-46.3) % MCH (27.0-32.0) pg MCHC (32.0-37.0) g/dL RDW (11.5-14.5) % Plt Count (140-440) X 10*3/uL Immature Gran # (0.00-0.04) X 10*3/uL Neutrophils # (1.80-7.70) X 10*3/uL Eosinophils # (0.04-0.35) X 10*3/uL PT 22.1 H (9.9-11.9) sec INR 2.13 H (0.90-1.11) BUN (9.0-27.0) mg/dL Est GFR (CKD-EPI)AfAm (60.0-200.0) Est GFR (CKD-EPI)NonAf (60.0-200.0) BUN/Creatinine Ratio (12.00-20.00) Ratio Glucose (70-110) mg/dL POC Glucose (mg/dL) 136 H 231 H (75-99) mg/dL 04/10/20 04/10/20 04/10/20 Range/Units 05:53 05:53 06:59 WBC 14.42 H (4.50-10.00) X 10*3/uL RBC 3.27 L (4.10-5.20) X 10*6/uL Hgb 8.7 L (12.0-15.0) g/dL Hct 29.4 L (37.2-46.3) % MCH 26.6 L (27.0-32.0) pg MCHC 29.6 L (32.0-37.0) g/dL RDW 18.5 H (11.5-14.5) % Plt Count 138 L (140-440) X 10*3/uL Immature Gran # 0.06 H (0.00-0.04) X 10*3/uL Neutrophils # 11.36 H (1.80-7.70) X 10*3/uL Eosinophils # 0.01 L (0.04-0.35) X 10*3/uL PT (9.9-11.9) sec INR (0.90-1.11) BUN 40.0 H (9.0-27.0) mg/dL Est GFR (CKD-EPI)AfAm 52.3 L (60.0-200.0) Est GFR (CKD-EPI)NonAf 45.1 L (60.0-200.0) BUN/Creatinine Ratio 33.33 H (12.00-20.00) Ratio Glucose 170 H (70-110) mg/dL POC Glucose (mg/dL) 180 H (75-99) mg/dL 04/10/20 Range/Units 11:56 WBC (4.50-10.00) X 10*3/uL RBC (4.10-5.20) X 10*6/uL Hgb (12.0-15.0) g/dL Hct (37.2-46.3) % MCH (27.0-32.0) pg MCHC (32.0-37.0) g/dL RDW (11.5-14.5) % Plt Count (140-440) X 10*3/uL Immature Gran # (0.00-0.04) X 10*3/uL Neutrophils # (1.80-7.70) X 10*3/uL Eosinophils # (0.04-0.35) X 10*3/uL PT (9.9-11.9) sec INR (0.90-1.11) BUN (9.0-27.0) mg/dL Est GFR (CKD-EPI)AfAm (60.0-200.0) Est GFR (CKD-EPI)NonAf (60.0-200.0) BUN/Creatinine Ratio (12.00-20.00) Ratio Glucose (70-110) mg/dL POC Glucose (mg/dL) 196 H (75-99) mg/dL Microbiology - Last 24 Hours (Table) 04/03/20 11:36 Blood Culture - Final Blood No Growth after 144 hours Assessment and Plan Plan: Assessment: 1 Acute exacerbation of COPD 2 Acute tracheobronchitis secondary to pseudomonas aeruginosa. 3 Acute on chronic hypoxic respiratory failure secondary to above. 4 Acute on chronic kidney injury, improving in spite of diuretics. 5 Paroxysmal atrial fibrillation. 6 Chronic hypoxic respiratory failure maintained on option at 2 L/m. 7 Type 2 diabetes. 8 Benign essential hypertension. 9 Hypothyroidism. 10 Secondary pulmonary hypertension. 11 Medical debility, patient is unable to ambulate on her own at home. Plan: Continue current medical treatment, prednisone 20 mg, signs have been stable, she is breathing easier, FiO2 down to 2 L, she is close to her baseline terms of pulmonary status, she is awaiting placement to ECF for rehab after discharge. She can be considered for discharge from pulmonary perspective. I performed a history & physical examination of the patient and discussed their management with my nurse practitioner, Maryjo Parisi. I reviewed the nurse practitioner's note and agree with the documented findings and plan of care. Lung sounds are positive for a few scattered wheezes. The findings and the impression was discussed with the patient. I attest to the documentation by the nurse practitioner. Time with Patient: Less than 30
[2020-04-10] MEDS ORDERED: FUROSEMIDE 10 MG/ML 4 ML VIAL IV ONE (16:00)
--- NOTE | 2020-04-10 16:22 | P.PN ---
Subjective Progress Note Date: 04/10/20 This is a 74-year-old female who was recently admitted with COPD acute exacerbation and is being closely monitored. Patient is being followed by multiple medical consultations including cardiology and nephrology. Patient is working with PT/OT therapy although continues to be weak and experiences dyspnea with exertion. Patient is currently maintained on sliding scale along with long acting and blood sugars continue to be elevated and will continue to monitor closely. Patient is also maintained on bronchodilators along with steroids and pulmonary is following. Patient is currently maintained on IV Lasix and she continues to have lower extremity swelling and edema noted. Patient is afebrile. No Chest pain reported. Review of systems: Constitutional: No reports of fatigue, fever, or chills Cardiovascular: No reports of chest pain or palpitations Respiratory: reports continued shortness of breath and cough GI: No reports of nausea, vomiting, or diarrhea : No reports of dysuria or retention Neurovascular: Reports generalized weakness All medications have been reviewed Active Medications Albuterol/Ipratropium (Ipratropium-Albuterol 3 Ml Neb) 3 ml INHALATION RT-QID [facility] Last Admin: 04/10/20 12:35 Dose: 3 ml Documented by: Albuterol/Ipratropium (Ipratropium-Albuterol 3 Ml Neb) 3 ml INHALATION RT-Q2H PRN PRN Reason: Shortness Of Breath Or Wheezing Last Admin: 04/06/20 04:39 Dose: 3 ml Documented by: Alprazolam (Alprazolam 0.5 Mg Tab) 0.5 mg PO QID PRN PRN Reason: Anxiety Last Admin: 04/10/20 15:30 Dose: 0.5 mg Documented by: Aspirin (Aspirin 81 Mg) 81 mg PO DAILY [facility] Last Admin: 04/10/20 09:22 Dose: 81 mg Documented by: Atorvastatin Calcium (Atorvastatin 10 Mg Tab) 10 mg PO DAILY [facility] Last Admin: 04/10/20 09:21 Dose: 10 mg Documented by: Benzonatate (Benzonatate 100 Mg Cap) 100 mg PO BID PRN PRN Reason: Cough Budesonide/Formoterol Fumarate (Symbicort 160-4.5 Mcg Inhaler) 2 puff INHALATION RT-BID [facility] Last Admin: 04/10/20 08:03 Dose: 2 puff Documented by: Citalopram Hydrobromide (Citalopram Hydrobromide 20 Mg Tab) 40 mg PO DAILY [facility] Last Admin: 04/10/20 09:21 Dose: 40 mg Documented by: Furosemide (Furosemide 10 Mg/Ml 4 Ml Vial) 40 mg IV DAILY [facility] Last Admin: 04/10/20 09:25 Dose: 40 mg Documented by: Hydralazine HCl (Hydralazine Hcl 20 Mg/Ml 1 Ml Vial) 10 mg IVP Q4HR PRN PRN Reason: Blood Pressure - High Last Admin: 04/09/20 03:29 Dose: 10 mg Documented by: Hydralazine HCl (Hydralazine Hcl 50 Mg Tab) 50 mg PO TID [facility] Last Admin: 04/10/20 15:30 Dose: 50 mg Documented by: Insulin Aspart (Insulin Aspart (Novolog) 100 Unit/Ml Vial) 0 unit SQ ACHS [facility]; Protocol Last Admin: 04/10/20 13:19 Dose: 2 unit Documented by: Insulin Aspart (Insulin Aspart (Novolog) 100 Unit/Ml Vial) 6 unit SQ AC-TID [facility] Last Admin: 04/10/20 13:20 Dose: 6 unit Documented by: Insulin Detemir (Insulin Detemir (Levemir) 100 Unit/Ml Syr) 30 unit SQ DAILY@0700 [facility] Last Admin: 04/10/20 07:34 Dose: 30 unit Documented by: Levothyroxine Sodium (Levothyroxine 50 Mcg Tab) 50 mcg PO DAILY@0630 [facility] Last Admin: 04/10/20 06:36 Dose: 50 mcg Documented by: Metoprolol Tartrate (Metoprolol Tartrate 50 Mg Tab) 100 mg PO BID [facility] Last Admin: 04/10/20 10:47 Dose: 100 mg Documented by: Miscellaneous Information (Warfarin Per Pharmacy) 1 each MISCELLANE DIRECTED PRN PRN Reason: Per Protocol Naloxone HCl (Naloxone 0.4 Mg/Ml 1 Ml Vial) 0.2 mg IV Q2M PRN PRN Reason: Opioid Reversal Nifedipine (Nifedipine Xl 60 Mg Tab.Er.24) 60 mg PO DAILY [facility] Last Admin: 04/10/20 10:42 Dose: 60 mg Documented by: Ondansetron HCl (Ondansetron 4 Mg/2 Ml Vial) 4 mg IVP Q8HR PRN PRN Reason: Nausea And Vomiting Pantoprazole Sodium (Pantoprazole 40 Mg Tablet) 40 mg PO AC-BRKFST [facility] Last Admin: 04/10/20 07:33 Dose: 40 mg Documented by: Prednisone (Prednisone 20 Mg Tab) 20 mg PO DAILY [facility] Last Admin: 04/10/20 10:47 Dose: 20 mg Documented by: Tramadol HCl (Tramadol 50 Mg Tab) 50 mg PO QID PRN PRN Reason: pain Last Admin: 04/08/20 09:50 Dose: 50 mg Documented by: Tramadol HCl (Tramadol 50 Mg Tab) 50 mg PO TID PRN PRN Reason: Pain Triamcinolone Acetonide (Triamcinolone Acet 0.1% Ointment 15 Gm Tube) 1 applic TOPICAL BID [facility] Last Admin: 04/10/20 09:25 Dose: 1 applic Documented by: Trimethobenzamide HCl (Trimethobenzamide 100 Mg/Ml 2 Ml Vial) 100 mg IM Q6HR PRN PRN Reason: Nausea Valacyclovir HCl (Valacyclovir Hcl 1,000 Mg Tablet) 1,000 mg PO BID [facility] Last Admin: 04/10/20 10:44 Dose: 1,000 mg Documented by: Warfarin Sodium (Warfarin 5 Mg Tab) 5 mg PO ONCE@1800 ONE Stop: 04/10/20 18:01 Objective - Vital Signs Vital signs: Vital Signs Temp 98.1 F 04/10/20 14:14 Pulse 75 04/10/20 14:14 Resp 18 04/10/20 14:14 BP 144/70 04/10/20 14:14 Pulse Ox 98 04/10/20 14:14 Intake & Output 04/09/20 04/10/20 04/10/20 18:59 06:59 18:59 Intake Total 1200 Output Total 1700 Balance -500 Weight 115.6 kg 116.6 kg Intake: Oral 1200 Output: Urine 1700 Other: Voiding Method Bedside Commode # Voids 1 - Exam Gen: This is a 74-year-old female awake alert and oriented 3 well-developed, well-nourished, obese. There is 98.1F, pulse is 75, respirations are 18, blood pressure is 144/70, oxygen saturation is 98% on 2 L via nasal cannula. HEENT: Head is atraumatic, normocephalic. Pupils equal, round. Sclerae is anicteric. NECK: Supple. No JVD. No lymphadenopathy. No thyromegaly. LUNGS: Breath sounds diminished bilaterally with some scattered rhonchi and crackles noted. Mild expiratory wheezing noted on exam. No intercostal retractions. HEART: S1, S2 are muffled ABDOMEN: Soft. Obese. Bowel sounds are present. No masses. No tenderness. EXTREMITIES: Mild bilateral lower extremity edema noted. No calf tenderness. NEUROLOGICAL: Patient is awake, alert and oriented x3. No focal deficits noted. Diffusely weak - Labs CBC & Chem 7: 04/10/20 05:53 04/10/20 05:53 Labs: Abnormal Lab Results - Last 24 Hours (Table) 04/09/20 04/09/20 04/10/20 Range/Units 16:51 20:42 05:53 WBC (4.50-10.00) X 10*3/uL RBC (4.10-5.20) X 10*6/uL Hgb (12.0-15.0) g/dL Hct (37.2-46.3) % MCH (27.0-32.0) pg MCHC (32.0-37.0) g/dL RDW (11.5-14.5) % Plt Count (140-440) X 10*3/uL Immature Gran # (0.00-0.04) X 10*3/uL Neutrophils # (1.80-7.70) X 10*3/uL Eosinophils # (0.04-0.35) X 10*3/uL PT 22.1 H (9.9-11.9) sec INR 2.13 H (0.90-1.11) BUN (9.0-27.0) mg/dL Est GFR (CKD-EPI)AfAm (60.0-200.0) Est GFR (CKD-EPI)NonAf (60.0-200.0) BUN/Creatinine Ratio (12.00-20.00) Ratio Glucose (70-110) mg/dL POC Glucose (mg/dL) 136 H 231 H (75-99) mg/dL 04/10/20 04/10/20 04/10/20 Range/Units 05:53 05:53 06:59 WBC 14.42 H (4.50-10.00) X 10*3/uL RBC 3.27 L (4.10-5.20) X 10*6/uL Hgb 8.7 L (12.0-15.0) g/dL Hct 29.4 L (37.2-46.3) % MCH 26.6 L (27.0-32.0) pg MCHC 29.6 L (32.0-37.0) g/dL RDW 18.5 H (11.5-14.5) % Plt Count 138 L (140-440) X 10*3/uL Immature Gran # 0.06 H (0.00-0.04) X 10*3/uL Neutrophils # 11.36 H (1.80-7.70) X 10*3/uL Eosinophils # 0.01 L (0.04-0.35) X 10*3/uL PT (9.9-11.9) sec INR (0.90-1.11) BUN 40.0 H (9.0-27.0) mg/dL Est GFR (CKD-EPI)AfAm 52.3 L (60.0-200.0) Est GFR (CKD-EPI)NonAf 45.1 L (60.0-200.0) BUN/Creatinine Ratio 33.33 H (12.00-20.00) Ratio Glucose 170 H (70-110) mg/dL POC Glucose (mg/dL) 180 H (75-99) mg/dL 04/10/20 Range/Units 11:56 WBC (4.50-10.00) X 10*3/uL RBC (4.10-5.20) X 10*6/uL Hgb (12.0-15.0) g/dL Hct (37.2-46.3) % MCH (27.0-32.0) pg MCHC (32.0-37.0) g/dL RDW (11.5-14.5) % Plt Count (140-440) X 10*3/uL Immature Gran # (0.00-0.04) X 10*3/uL Neutrophils # (1.80-7.70) X 10*3/uL Eosinophils # (0.04-0.35) X 10*3/uL PT (9.9-11.9) sec INR (0.90-1.11) BUN (9.0-27.0) mg/dL Est GFR (CKD-EPI)AfAm (60.0-200.0) Est GFR (CKD-EPI)NonAf (60.0-200.0) BUN/Creatinine Ratio (12.00-20.00) Ratio Glucose (70-110) mg/dL POC Glucose (mg/dL) 196 H (75-99) mg/dL Microbiology - Last 24 Hours (Table) 04/03/20 11:36 Blood Culture - Final Blood No Growth after 144 hours Assessment and Plan Assessment: Chronic obstructive pulmonary disease and bronchial asthma acute exacerbation with bibasilar pneumonia, possibly hospital-acquired pneumonia with Pseudomonas Acute on chronic hypoxic respiratory failure Acute kidney injury with acute tubular necrosis Hyperkalemia on presentation secondary to renal failure Chronic diastolic congestive heart failure with ejection fraction 50-55% Coagulopathy secondary to Coumadin toxicity Paroxysmal atrial fibrillation Fall/gait dysfunction diabetes mellitus type 2 Hypertension hypothyroidism history of lung disease possibly Moderate to severe pulmonary hypertension Chronic hypoxic respiratory failure on 2 L nasal cannula Gait dysfunction Obesity with a body mass index of 40.3 Full code Recommendations and discussion: Continue with current medications and management. Multiple medical consult ations including nephrology, pulmonary, and cardiology following. Medications being adjusted and diltiazem is being discontinued and started Procardia. Lopressor increased to 100 mg twice daily. Will continue with IV Lasix and possible transition to oral tomorrow. PT/OT following as patient continues to be weak with gait dysfunction and social work also following working on possible ECF placement for continued PT/OT therapy for strengthening mobility. Due to multiple complex medical issues, prognosis is guarded. Further recommendations to follow. Possible discharge in 24-48 hours.
[2020-04-10 17:42] LABS: Glucose,Whole Blood 135 mg/dL (75-99)
[2020-04-10] MEDS ORDERED: WARFARIN 5 MG TAB PO ONE (18:00)
[2020-04-10 20:59] LABS: Glucose,Whole Blood 187 mg/dL (75-99)
[2020-04-11] MEDS: IPRATROPIUM-ALBUTEROL 3 ML NEB INHALATION PRN (03:58)
[2020-04-11] MEDS: LEVOTHYROXINE 50 MCG TAB PO SCH (05:58)
[2020-04-11 06:45] LABS: Glucose,Whole Blood 156 mg/dL (75-99)
[2020-04-11] MEDS: INSULIN DETEMIR (LEVEMIR) 100 UNIT/ML SYR SQ SCH (07:11)
[2020-04-11] MEDS: INSULIN ASPART (NovoLOG) 100 UNIT/ML VIAL SQ SCH ×2 (07:13→07:14)
[2020-04-11] MEDS: PANTOPRAZOLE 40 MG TABLET PO SCH (07:16)
[2020-04-11] MEDS: ALPRAZolam 0.5 MG TAB PO PRN (07:16)
[2020-04-11 07:24] VITALS: BP 147/66; RESP 20; TEMP 97.9
[2020-04-11] MEDS: IPRATROPIUM-ALBUTEROL 3 ML NEB INHALATION SCH (08:47)
[2020-04-11] MEDS: SYMBICORT 160-4.5 MCG INHALER INHALATION SCH (08:47)
[2020-04-11 09:00] VITALS: PULSE 84
[2020-04-11 09:33] LABS: Basophils # (A) 0.01 X 10*3/uL (0.00-0.10); Basophils % (A) 0.1 %; Eosinophils # (A) 0.01 X 10*3/uL (0.04-0.35); Eosinophils % (A) 0.1 %; HCT 27.5 % (37.2-46.3); HGB 8.2 g/dL (12.0-15.0); Lymphocytes # (A) 2.08 X 10*3/uL (0.90-5.00); Lymphocytes % (A) 16.3 %; MCHC 29.8 g/dL (32.0-37.0); MCV 90.5 fL (80.0-97.0); Mean Platelet Volume 9.6 fL (9.5-12.2); Monocytes # (A) 0.82 X 10*3/uL (0.20-1.00); Monocytes % (A) 6.4 %; Neutrophils # (A) 9.77 X 10*3/uL (1.80-7.70); Neutrophils % (A) 76.6 %; Platelet Count 131 X 10*3/uL (140-440); RBC 3.04 X 10*6/uL (4.10-5.20); RDW 18.5 % (11.5-14.5); WBC 12.75 X 10*3/uL (4.50-10.00)
[2020-04-11] MEDS: METOPROLOL TARTRATE 50 MG TAB PO SCH (09:50)
[2020-04-11] MEDS: CITALOPRAM HYDROBROMIDE 20 MG TAB PO SCH (09:50)
[2020-04-11] MEDS: predniSONE 20 MG TAB PO SCH (09:50)
[2020-04-11] MEDS: hydrALAZINE HCL 50 MG TAB PO SCH (09:50)
[2020-04-11] MEDS: ASPIRIN 81 MG PO SCH (09:50)
[2020-04-11] MEDS: ATORVASTATIN 10 MG TAB PO SCH (09:51)
[2020-04-11] MEDS: valACYclovir HCL 1,000 MG TABLET PO SCH (09:52)
[2020-04-11] MEDS: FUROSEMIDE 10 MG/ML 4 ML VIAL IV SCH (09:53)
[2020-04-11] MEDS: TRIAMCINOLONE ACET 0.1% OINTMENT 15 GM TUBE TOPICAL SCH (10:03)
[2020-04-11 10:35] LABS: African American GFR (CKD) 36.9 (60.0-200.0); Anion Gap 7.4 mmol/L (4.00-12.00); BUN/Creat Ratio 24.38 Ratio (12.00-20.00); Calcium 8.2 mg/dL (8.7-10.3); Carbon Dioxide 31.6 mmol/L (21.6-31.8); Magnesium 1.6 mg/dL (1.5-2.4); Non-African American GFR(CKD) 31.9 (60.0-200.0)
[2020-04-11 10:39] LABS: INR 2.41 (0.90-1.11); Prothrombin Time 24.8 sec (9.9-11.9)
[2020-04-11] MEDS ORDERED: MAGNESIUM OXIDE 400 MG TAB PO STA (11:08)
--- NOTE | 2020-04-11 11:28 | P.PN ---
Subjective Patient is seen in follow-up for acute kidney injury. Renal function worse from diuresis. Creatinine 1.6 today. Nonoliguric. She is maintained on IV Lasix. Currently sitting up in chair. No active chest pain or shortness of breath. Oral intake is fair. Vital signs are stable. General: The patient appeared well nourished and normally developed. HEENT: Head exam is unremarkable. LUNGS: Breath sounds decreased. Scattered wheezing. HEART: Rate and Rhythm are regular. ABDOMEN: Soft, nontender. Obese. EXTREMITITES: 1+ edema. Objective - Vital Signs Vital signs: Vital Signs Temp 97.9 F 04/11/20 07:23 Pulse 84 04/11/20 08:59 Resp 20 04/11/20 07:23 BP 147/66 04/11/20 07:23 Pulse Ox 96 04/11/20 07:23 Intake & Output 04/10/20 04/11/20 04/11/20 18:59 06:59 18:59 Weight 117.5 kg Other: Voiding Method Bedside Commode # Voids 3 1 - Labs CBC & Chem 7: 04/11/20 05:45 04/11/20 05:45 Labs: Abnormal Lab Results - Last 24 Hours (Table) 04/10/20 04/10/20 04/10/20 Range/Units 11:56 17:40 20:57 WBC (4.50-10.00) X 10*3/uL RBC (4.10-5.20) X 10*6/uL Hgb (12.0-15.0) g/dL Hct (37.2-46.3) % MCHC (32.0-37.0) g/dL RDW (11.5-14.5) % Plt Count (140-440) X 10*3/uL Immature Gran # (0.00-0.04) X 10*3/uL Neutrophils # (1.80-7.70) X 10*3/uL Eosinophils # (0.04-0.35) X 10*3/uL PT (9.9-11.9) sec INR (0.90-1.11) BUN (9.0-27.0) mg/dL Creatinine (0.6-1.5) mg/dL Est GFR (CKD-EPI)AfAm (60.0-200.0) Est GFR (CKD-EPI)NonAf (60.0-200.0) BUN/Creatinine Ratio (12.00-20.00) Ratio Glucose (70-110) mg/dL POC Glucose (mg/dL) 196 H 135 H 187 H (75-99) mg/dL Calcium (8.7-10.3) mg/dL 04/11/20 04/11/20 04/11/20 Range/Units 05:45 05:45 05:45 WBC 12.75 H (4.50-10.00) X 10*3/uL RBC 3.04 L (4.10-5.20) X 10*6/uL Hgb 8.2 L (12.0-15.0) g/dL Hct 27.5 L (37.2-46.3) % MCHC 29.8 L (32.0-37.0) g/dL RDW 18.5 H (11.5-14.5) % Plt Count 131 L (140-440) X 10*3/uL Immature Gran # 0.06 H (0.00-0.04) X 10*3/uL Neutrophils # 9.77 H (1.80-7.70) X 10*3/uL Eosinophils # 0.01 L (0.04-0.35) X 10*3/uL PT 24.8 H (9.9-11.9) sec INR 2.41 H (0.90-1.11) BUN 39.0 H (9.0-27.0) mg/dL Creatinine 1.6 H (0.6-1.5) mg/dL Est GFR (CKD-EPI)AfAm 36.9 L (60.0-200.0) Est GFR (CKD-EPI)NonAf 31.9 L (60.0-200.0) BUN/Creatinine Ratio 24.38 H (12.00-20.00) Ratio Glucose 150 H (70-110) mg/dL POC Glucose (mg/dL) (75-99) mg/dL Calcium 8.2 L (8.7-10.3) mg/dL 04/11/20 Range/Units 06:44 WBC (4.50-10.00) X 10*3/uL RBC (4.10-5.20) X 10*6/uL Hgb (12.0-15.0) g/dL Hct (37.2-46.3) % MCHC (32.0-37.0) g/dL RDW (11.5-14.5) % Plt Count (140-440) X 10*3/uL Immature Gran # (0.00-0.04) X 10*3/uL Neutrophils # (1.80-7.70) X 10*3/uL Eosinophils # (0.04-0.35) X 10*3/uL PT (9.9-11.9) sec INR (0.90-1.11) BUN (9.0-27.0) mg/dL Creatinine (0.6-1.5) mg/dL Est GFR (CKD-EPI)AfAm (60.0-200.0) Est GFR (CKD-EPI)NonAf (60.0-200.0) BUN/Creatinine Ratio (12.00-20.00) Ratio Glucose (70-110) mg/dL POC Glucose (mg/dL) 156 H (75-99) mg/dL Calcium (8.7-10.3) mg/dL Assessment and Plan Plan: Assessment: 1. Acute kidney injury secondary to ATN secondary to cardiorenal syndrome. Creatinine near 1 from Jan 2020 - peaked at 3.4 this admission and is 1.6 today. No hydronephrosis noted on kidney ultrasound but the right kidney is noted to be small in size. 2. Acute on chronic diastolic CHF with moderate to severe tricuspid regurgitation and severe pulmonary hypertension. 3. Diabetes mellitus. 4. Hyperkalemia secondary to acute kidney injury and hyperglycemia . Better. 5. COPD exacerbation with pseudomonas colonization. Pulmonology following. 6. Volume overload. 7. Anemia. Iron deficiency noted - status post IV iron. 8. Coagulopathy. Resolved. 9. Proteinuria. Most likely secondary to underlying diabetic kidney disease. Further workup outpatient. 10. Benign hypertension. Exacerbated by steroids. Stable. Plan: I will change IV Lasix to torsemide 40 mg once daily. Maintain Brooks catheter. Strict I's and O's. Avoid nephrotoxins. Continue to monitor renal function and urine output. Tight blood sugar control. Potential discharge home today. Repeat BMP and magnesium level 2-3 days post discharge. Follow up outpatient in 7-10 days. Patient was advised to maintain a low-salt diet as well as a 40-45 oz fluid restriction per day.
--- NOTE | 2020-04-11 12:50 | P.PN ---
Subjective This is a pleasant 74-year-old female past medical history significant for chronic diastolic heart failure, COPD, paroxysmal atrial fibrillation on long-term anticoagulation, diabetes mellitus, hypertension and chronic kidney disease. She follows in the office with Dr. Pruett. She is seen and examined sitting up in the recliner in no acute distress. She states her breathing is stable with no significant worsening over the previous 24 hours. She denies chest pain, dizziness or palpitations. Currently maintained on IV lasix per nephrology. 24-hr urine output 1700 ml, maintaining a negative fluid balance. Blood pressure 163/79 heart rate 76 afebrile and maintaining oxygen saturation on nasal cannula. Laboratory data reviewed, WBC 14, hemoglobin 8.7, platelets 138, INR 2.1, sodium 142, potassium 4.1, creatinine 1.2 and magnesium 1.7. 04/11/2020 Pt is seen and examined sitting up in the recliner in no acute distress. She denies worsening shortness of breath. She has no chest pain, dizziness or palpitations. Blood pressure 147/66 heart rate 78 afebrile and maintaining oxygen saturation on nasal cannula. Laboratory data reviewed, WBC 12.75, hgb 8.2, plt 131, INR 2.41, sodium 141, potassium 4, creatinine 1.6 and magnesium 1. 6. GENERAL: Well-appearing, well-nourished and in no acute distress. NECK: Supple without JVD or thyromegaly. LUNGS: Breath sounds clear to auscultation bilaterally. Respiration equal and unlabored. No wheezes, rales or rhonchi. HEART: Regular rate and rhythm without murmurs, rubs or gallops. S1 and S2 heard. EXTREMITIES: Normal range of motion, 1+ pitting edema bilaterally. No clubbing or cyanosis. Peripheral pulses intact. ASSESSMENT Acute on chronic heart failure with preserved ejection fraction Acute exacerbation of COPD Paroxysmal atrial fibrillation on long-term anticoagulation Acute on chronic kidney disease Supratherapeutic INR, resolved Hyperkalemia, resolved Hypertension Diabetes mellitus Dyslipidemia PLAN Stable on current medical regimen. Nifedipine can be increased for optimal blood pressure control as needed down the line. Follow up with Dr. Pruett upon discharge. Nurse Practitioner note has been reviewed, I agree with a documented findings and plan of care. Patient was seen and examined. Objective - Vital Signs Vital signs: Vital Signs Temp 97.9 F 04/11/20 07:23 Pulse 84 04/11/20 08:59 Resp 20 04/11/20 07:23 BP 147/66 04/11/20 07:23 Pulse Ox 96 04/11/20 07:23 Intake & Output 04/10/20 04/11/20 04/11/20 18:59 06:59 18:59 Weight 117.5 kg Other: Voiding Method Bedside Commode # Voids 3 1 - Labs CBC & Chem 7: 04/11/20 05:45 04/11/20 05:45 Labs: Abnormal Lab Results - Last 24 Hours (Table) 04/10/20 04/10/20 04/11/20 Range/Units 17:40 20:57 05:45 WBC (4.50-10.00) X 10*3/uL RBC (4.10-5.20) X 10*6/uL Hgb (12.0-15.0) g/dL Hct (37.2-46.3) % MCHC (32.0-37.0) g/dL RDW (11.5-14.5) % Plt Count (140-440) X 10*3/uL Immature Gran # (0.00-0.04) X 10*3/uL Neutrophils # (1.80-7.70) X 10*3/uL Eosinophils # (0.04-0.35) X 10*3/uL PT 24.8 H (9.9-11.9) sec INR 2.41 H (0.90-1.11) BUN (9.0-27.0) mg/dL Creatinine (0.6-1.5) mg/dL Est GFR (CKD-EPI)AfAm (60.0-200.0) Est GFR (CKD-EPI)NonAf (60.0-200.0) BUN/Creatinine Ratio (12.00-20.00) Ratio Glucose (70-110) mg/dL POC Glucose (mg/dL) 135 H 187 H (75-99) mg/dL Calcium (8.7-10.3) mg/dL 04/11/20 04/11/20 04/11/20 Range/Units 05:45 05:45 06:44 WBC 12.75 H (4.50-10.00) X 10*3/uL RBC 3.04 L (4.10-5.20) X 10*6/uL Hgb 8.2 L (12.0-15.0) g/dL Hct 27.5 L (37.2-46.3) % MCHC 29.8 L (32.0-37.0) g/dL RDW 18.5 H (11.5-14.5) % Plt Count 131 L (140-440) X 10*3/uL Immature Gran # 0.06 H (0.00-0.04) X 10*3/uL Neutrophils # 9.77 H (1.80-7.70) X 10*3/uL Eosinophils # 0.01 L (0.04-0.35) X 10*3/uL PT (9.9-11.9) sec INR (0.90-1.11) BUN 39.0 H (9.0-27.0) mg/dL Creatinine 1.6 H (0.6-1.5) mg/dL Est GFR (CKD-EPI)AfAm 36.9 L (60.0-200.0) Est GFR (CKD-EPI)NonAf 31.9 L (60.0-200.0) BUN/Creatinine Ratio 24.38 H (12.00-20.00) Ratio Glucose 150 H (70-110) mg/dL POC Glucose (mg/dL) 156 H (75-99) mg/dL Calcium 8.2 L (8.7-10.3) mg/dL
--- NOTE | 2020-04-11 14:02 | P.PN ---
Subjective Progress Note Date: 04/11/20 74-year-old female patient with chronic COPD/asthma, diabetes, chronic stage III kidney disease, chronic atrial fibrillation, diastolic heart failure with multiple hospitalizations in the past due to pulmonary complications of recurrent infection including infections with Pseudomonas. Other comorbidities include hypothyroidism, hiatal hernia and obesity. The patient was recently discharged from the hospital and she had a hospitalization and she was discharged home on January [id number] , and acute exacerbation of her chronic COPD/asthma secondary to pseudomonas aeruginosa. After being treated, the patient was discharged home. The patient came in yesterday to the emergency complaining of feeling worsening shortness of breath, cough and congestion and same time her appetite was down and she was having increased hardness and sweating. The patient has been enrolled in hospice care and she has been followed up by [facility]. I reviewed the home medications and the patient was placed on high-dose prednisone that she's been taking for at least 2 months for now at a dose of 50 mg by mouth daily. She is also on DuoNeb nebulized treatments around the clock, Lantus insulin 30 units daily along with his vascular coverage. She was also being given morphine an as-needed basis for shortness of breath and breathlessness at a dose of 5 mg every fours hours on a when necessary basis. She is on tramadol for pain control and she takes warfarin as a long-term anticoagulants. While at home, she was getting progressively more debilitated. She tried to get up and she was trying to look to the bathroom and she fell. The hospice nurses end up sending her here to the hospital for further evaluation. A CAT scan of the brain was done and was negative. An x-ray of the shoulder was done that was negative. INR was at was at 2.7 and there was no evidence of any acute bleeding. On 04/05/2020, the patient is resting comfortably in bed. No significant respiratory distress. I feel that her breathing is slightly improved compared to yesterday. She does have a congested cough. Ongoing issues for now is the acute kidney injury. The patient was seen by nephrology. IV fluids were cut down and the patient was given a dose of Lasix. She responded that she produces approximately 400 mL of urine output. Her BUN today is 104. Creatinine is at 3.4. She was given vitamin K regarding her coagulopathy her INR is down to 3.2. No significant signs of bleeding. Hemoccult was attempted 0.8. A follow-up chest x-ray was done and shows cardiomegaly. No evidence of any airspace disea se or pneumonia. The patient does have some cardiomegaly and mild pulmonary vascular congestion. Meanwhile, a repeat sputum sample is to be collected and the blood culture is negative for now. I have the patient on IV cefepime for now. She is on DuoNeb nebulized treatments around the clock. I cut down the prednisone down to 20 mg by mouth daily. Her blood sugars are under adequate control for now and she is on Levemir insulin. In fact her blood pressure blood sugar control is improved since her admission and she is currently on Levemir 30 units along with sliding scale coverage. Reevaluated today on 04/06/2020, patient continues to have intermittent episodes of cough wheezing and shortness of breath. She is quite congested, on physical examination she has significant rhonchi and wheezes noted bilaterally. Her last chest x-ray from 2 days ago showed mild pulmonary vascular congestion, and mild patchy bibasilar atelectasis. CBC is relatively normal her INR is 1.8 electrolytes are normal BUN is 96 creatinine is 2.58. Patient remains on bronchodilators, remains on prednisone 20 mg daily, and she is on cefepime for her pseudomonal infection Patient was reevaluated today on 04/07/2020, feeling better, breathing easier, continues to have intermittent cough and wheezing, but overall she seems better, patient seems to be quite edematous, maintain on Lasix. Electrolytes are normal BUN is improved down to 78 and creatinine is improved down to 1.74. CBC is relatively normal. Reevaluated today on 04/08/2020, patient continues to have intermittent cough and wheezing, tells me she is about the same as yesterday, patient remains on bronchodilators, her renal functioning is improving her overall pulmonary status is slightly improved. And I have a feeling that the patient could be considered for discharge planning in the next 24 hours. Remains on antibiotics and [facility] hodilators. Labs today were reviewed creatinine is down to 1.31 hemoglobin is 58 CBC is relatively normal last chest x-ray showed patchy bibasilar atelectasis/possible infiltrates in the lower lobes. The patient is seen today 04/09/2020 in follow-up on the selective care unit. She is currently sitting up in a chair at the bedside. Awake and alert in no acute distress. Maintaining O2 saturations in the 90s on 3 L/m per nasal cannula. She's been afebrile. Hemodynamically stable. Blood cultures reveal no growth. INR 1.9. Sodium 142. Potassium 4.1. Creatinine 1.26. Glucose 175. She remains on Symbicort, DuoNeb inhalations, prednisone. Antibiotics in the form of ceftriaxone. IV diuretics. On 04/10/2020 patient is seen in follow-up on medical floor, she is resting comfortably in the chair, in no acute distress, she is breathing much easier, lung sounds today reveal some scattered wheezes, she is on 2 L of oxygen and the pulse ox of 97%, hemodynamically she is stable, she has had no fever or chills, no clubbing or chest pain. Today's labs have been reviewed, white blood cell count of 14, hemoglobin is 8.7, INR is 2.1, electrolytes within normal limits, BUN of 40 creatinine is 1.2. 1+ lower extremity edema, patient is on daily dose of IV Lasix, nephrology is managing, she is on breathing treatments, bronchodilators, and oral prednisone, she is close to her baseline. He is awaiting placement to [facility] for rehab after discharge. The patient is seen today 04/11/2019 follow-up on the regular medical floor. She is currently sitting up in a chair at the bedside. Awake and alert in no acute distress. No worsening shortness of breath, cough or congestion. Maintaining good O2 saturations in the 90s on 2 L/m per nasal cannula. She's afebrile. Hemodynamically stable. Blood cultures reveal no growth. White count 12.7. Hemoglobin 8.2. Platelets 131. INR 2.41. Sodium 141. Potassium 4.0. Creatinine 1.6. He remains on Symbicort, DuoNeb inhalations, diuretics. Objective - Vital Signs Vital signs: Vital Signs Temp 97.9 F 04/11/20 07:23 Pulse 84 04/11/20 08:59 Resp 20 04/11/20 07:23 BP 147/66 04/11/20 07:23 Pulse Ox 96 04/11/20 07:23 Intake & Output 04/10/20 04/11/20 04/11/20 18:59 06:59 18:59 Weight 117.5 kg Other: Voiding Method Bedside Commode # Voids 3 1 - Exam GENERAL EXAM: 74-year-old female on 2 L nasal cannula, up in a chair at the bedside, no acute distress HEENT: PERRLA, EOMI, nonicteric, no neck masses, no JVD, no stridor, moist mucous membranes CHEST: No chest wall deformity. Symmetrical expansion. LUNGS: Wheezing on forced expiratory maneuver noted. Fine crackles at the bases. CVS: Regular rate and rhythm, normal S1 and S2, no gallops, no murmurs, no rubs ABDOMEN: Soft, nontender. No hepatosplenomegaly, normal bowel sounds, no guarding or rigidity. EXTREMITIES: No clubbing, chronic venous stasis changes involving lower extremities, and increase pretibial edema, no cyanosis, 2+ pulses and upper and lower extremities. There may be also some cellulitis in the lower extremities more so on the left as the area between the ankle and the knee on the left is quite warm and erythematous. No open wounds or sores. MUSCULOSKELETAL: Muscle strength and tone normal. SPINE: No scoliosis or deformity SKIN: No rashes, areas of bruises in her right upper extremity elbow area, right lateral posterior chest and abdominal wall. No bruises over the lower extremities. CENTRAL NERVOUS SYSTEM: Alert and oriented -3. No focal deficits, tone is normal in all 4 extremities. PSYCHIATRIC: Alert and oriented -3. Appropriate affect. Intact judgment and insight. - Labs CBC & Chem 7: 04/11/20 05:45 04/11/20 05:45 Labs: Abnormal Lab Results - Last 24 Hours (Table) 04/10/20 04/10/20 04/11/20 Range/Units 17:40 20:57 05:45 WBC (4.50-10.00) X 10*3/uL RBC (4.10-5.20) X 10*6/uL Hgb (12.0-15.0) g/dL Hct (37.2-46.3) % MCHC (32.0-37.0) g/dL RDW (11.5-14.5) % Plt Count (140-440) X 10*3/uL Immature Gran # (0.00-0.04) X 10*3/uL Neutrophils # (1.80-7.70) X 10*3/uL Eosinophils # (0.04-0.35) X 10*3/uL PT 24.8 H (9.9-11.9) sec INR 2.41 H (0.90-1.11) BUN (9.0-27.0) mg/dL Creatinine (0.6-1.5) mg/dL Est GFR (CKD-EPI)AfAm (60.0-200.0) Est GFR (CKD-EPI)NonAf (60.0-200.0) BUN/Creatinine Ratio (12.00-20.00) Ratio Glucose (70-110) mg/dL POC Glucose (mg/dL) 135 H 187 H (75-99) mg/dL Calcium (8.7-10.3) mg/dL 04/11/20 04/11/20 04/11/20 Range/Units 05:45 05:45 06:44 WBC 12.75 H (4.50-10.00) X 10*3/uL RBC 3.04 L (4.10-5.20) X 10*6/uL Hgb 8.2 L (12.0-15.0) g/dL Hct 27.5 L (37.2-46.3) % MCHC 29.8 L (32.0-37.0) g/dL RDW 18.5 H (11.5-14.5) % Plt Count 131 L (140-440) X 10*3/uL Immature Gran # 0.06 H (0.00-0.04) X 10*3/uL Neutrophils # 9.77 H (1.80-7.70) X 10*3/uL Eosinophils # 0.01 L (0.04-0.35) X 10*3/uL PT (9.9-11.9) sec INR (0.90-1.11) BUN 39.0 H (9.0-27.0) mg/dL Creatinine 1.6 H (0.6-1.5) mg/dL Est GFR (CKD-EPI)AfAm 36.9 L (60.0-200.0) Est GFR (CKD-EPI)NonAf 31.9 L (60.0-200.0) BUN/Creatinine Ratio 24.38 H (12.00-20.00) Ratio Glucose 150 H (70-110) mg/dL POC Glucose (mg/dL) 156 H (75-99) mg/dL Calcium 8.2 L (8.7-10.3) mg/dL Assessment and Plan Assessment: 1 Acute exacerbation of COPD 2 Acute tracheobronchitis secondary to pseudomonas aeruginosa. 3 Acute on chronic hypoxic respiratory failure secondary to above. 4 Acute on chronic kidney injury, improving in spite of diuretics. 5 Paroxysmal atrial fibrillation. 6 Chronic hypoxic respiratory failure maintained on option at 2 L/m. 7 Type 2 diabetes. 8 Benign essential hypertension. 9 Hypothyroidism. 10 Secondary pulmonary hypertension. 11 Medical debility, patient is unable to ambulate on her own at home. Plan: The patient was seen and evaluated by Dr. Chow Cleared for discharge from the pulmonary standpoint Continue Symbicort and DuoNeb inhalations Complete prednisone taper Anticoagulated with warfarin I, the cosigning physician, performed a history & physical examination of the patient. Lungs sounds with end expiratory wheeze, faint crackles in the posterior bases. Maintaining good O2 saturations in the 90s on 2 L/m per nasal cannula. I discussed the assessment and plan of care with my nurse practitioner, Su Arias. I attest to the above note as dictated by her.
--- NOTE | 2020-04-11 14:54 | P.DS ---
Providers Date of admission: 04/03/20 00:00 Expected date of discharge: 04/11/20 Attending physician: Nixon Gamboa Consults: 04/02/20 23:12 Consult Physician Routine Consulting Provider: [facility] Consult Reason/Comments: CHF Do you want consulting provider notified?: Yes 04/02/20 23:15 Consult Physician Routine Consulting Provider: Meme Mendiola Consult Reason/Comments: Pneumonia Do you want consulting provider notified?: Yes 04/05/20 08:59 Consult Physician Urgent Consulting Provider: Chaim Altamirano Consult Reason/Comments: dariel Do you want consulting provider notified?: Yes Primary care physician: Verona Medrano Hospital Course: Final diagnosis Chronic obstructive pulmonary disease and bronchial asthma acute exacerbation with bibasilar pneumonia, possibly hospital-acquired pneumonia with Pseudomonas Acute on chronic hypoxic respiratory failure Acute kidney injury with acute tubular necrosis Hyperkalemia on presentation secondary to renal failure Chronic diastolic congestive heart failure with ejection fraction 50-55% Coagulopathy secondary to Coumadin toxicity Paroxysmal atrial fibrillation Fall/gait dysfunction diabetes mellitus type 2 Hypertension hypothyroidism history of lung disease possibly Moderate to severe pulmonary hypertension Chronic hypoxic respiratory failure on 2 L nasal cannula Gait dysfunction Obesity with a body mass index of 40.3 Full code Discharge disposition Patient is being discharged in a stable condition with guarded prognosis to home. Patient will follow-up with Dr. Medrano in the outpatient setting upon discharge. Patient is to follow-up with Dr. Benitez Pruett as scheduled. Patient will continue with home care along with palliative care in the outpatient setting. Patient will also continue with the prednisone taper along with bronchodilators upon discharge. Total time taken is greater than 35 minutes. Hospital course 74-year-old female who was recently admitted with COPD exacerbation and was being closely monitored. Patient was seen and evaluated by cardiology, nephrology, and pulmonary. Patient was placed on IV Lasix and continued to have some swelling and will continue torsemide 40 mg daily upon discharge. Patient will need repeat labs to monitor kidney functions along with magnesium in 2-3 days. Patient also instructed to follow-up with primary care provider along with nephrology and cardiology in the outpatient setting. Patient was having weakness and unsteady gait with a recent history of fall and was seen and evaluated by PT/OT therapy but continued to show improvement and was considered for ECF rehab. A [id number] review with Dr. Samson from [facility] was done in an attempt to obtain authorization for ECF placement for continued PT/OT therapy. [id number] was denied and patient will continue with home care in the outpatient setting along with palliative care. Currently no reports of chest pain, worsening shortness of breath, or palpitations. Patient is afebrile. No reports of nausea or vomiting and patient is tolerating diet. Patient will be discharged home today. On exam vital signs are stable. Cardio S1, S2 are muffled. Respiratory system shows diminished breath sounds at the bases with no wheezing or rhonchi noted. Abdomen is soft and nontender. Nervous system shows no focal deficits. Please refer to medication reconciliation sheet for a list of medications. Patient Condition at Discharge: Stable Plan - Discharge Summary Discharge Rx Participant: No New Discharge Prescriptions: New Ipratropium-Albuterol Nebulize [Duoneb 0.5 mg-3 mg/3 ml Soln] 3 ml INHALATION RT-QID ml Ipratropium-Albuterol Nebulize [Duoneb 0.5 mg-3 mg/3 ml Soln] 3 ml INHALATION RT-Q2H PRN ml PRN Reason: Shortness Of Breath Or Wheezing Triamcinolone 0.1% Ointment [Kenalog 0.1% Ointment] 1 applic TOPICAL BID applic Insulin Detemir (Levemir) [Levemir] 30 unit SQ DAILY@0700 syr INSULIN ASPART (NovoLOG) [NovoLOG (formulary)] 6 unit SQ AC-TID vial INSULIN ASPART (NovoLOG) [NovoLOG (formulary)] 0 unit SQ ACHS vial Benzonatate [Tessalon Perles] 100 mg PO BID PRN cap PRN Reason: Cough valACYclovir HCL [Valtrex] 1,000 mg PO BID tablet Torsemide [Demadex] 40 mg PO DAILY 30 Days #30 tablet hydrALAZINE HCL 50 mg PO TID 30 Days #90 tablet Metoprolol Tartrate [Lopressor] 100 mg PO BID 30 Days #60 tab predniSONE 20 mg PO DAILY #12 tab NIFEdipine XL [Procardia Xl] 60 mg PO DAILY 30 Days #30 tab Continue Lovastatin [Mevacor] 40 mg PO DAILY Citalopram Hydrobromide [Citalopram HBr] 40 mg PO DAILY Levothyroxine Sodium [Synthroid] 50 mcg PO DAILY Zafirlukast [Accolate] 20 mg PO BID Warfarin Sodium [Coumadin] 5 mg PO HS Loratadine [Claritin] 10 mg PO DAILY PRN PRN Reason: Allergy Symptoms Albuterol Sulfate [Ventolin HFA] 1 - 2 puff INHALATION RT-Q6H PRN PRN Reason: Shortness Of Breath Ferrous Sulfate [Iron (65 MG Elemental)] 325 mg PO DAILY #30 tab Pantoprazole [Protonix] 40 mg PO AC-BRKFST #30 tablet. Budesonide-Formot 160-4.5 Mcg [Symbicort 160-4.5 Mcg Inhaler] 2 puff INHALATION RT-BID #1 puff Multivitamins, Thera [Multivitamin (formulary)] 1 tab PO DAILY Aspirin 81 mg PO DAILY 30 Days #30 chew traMADol HCL 50 mg PO TID PRN #10 tab PRN Reason: Pain ALPRAZolam [Xanax] 0.5 mg PO BID #10 tab Discontinued Diltiazem HCl [Diltiazem HCl 24Hr ER] 180 mg PO DAILY Alendronate Sodium [Fosamax] 70 mg PO FR Ipratropium Nebulized [Atrovent Nebulized 0.2 MG/ML] 0.5 mg INHALATION 5XD PRN PRN Reason: Shortness Of Breath Losartan [Cozaar] 50 mg PO DAILY Insulin Regular, Human [NovoLIN R] See Protocol SQ AC-TID Potassium Chloride [Klor-Con 20] 20 meq PO DAILY #0 guaiFENesin [Mucinex] 600 mg PO Q12H PRN PRN Reason: Cough Albuterol Nebulized [Ventolin Nebulized] 1.25 mg INHALATION RT-Q4H PRN PRN Reason: Shortness Of Breath Furosemide [Lasix] 40 mg PO BID hydrALAZINE HCL [Apresoline] 25 mg PO TID PRN PRN Reason: Blood Pressure - High Benzonatate [Tessalon Perles] 100 mg PO TID PRN PRN Reason: Cough Doxycycline Hyclate [Vibramycin] 100 mg PO BID Insulin Glargine [Lantus] 30 unit SQ DAILY Metoprolol Tartrate [Lopressor] 50 mg PO BID predniSONE 50 mg PO DAILY Morphine Sulfate [Morphine Sulfate Oral Soln Conc (20 MG/ML)] 5 mg PO HS Discharge Medication List Citalopram Hydrobromide [Citalopram HBr] 40 mg PO DAILY 01/16/19 [History] Levothyroxine Sodium [Synthroid] 50 mcg PO DAILY 01/16/19 [History] Lovastatin [Mevacor] 40 mg PO DAILY 01/16/19 [History] Zafirlukast [Accolate] 20 mg PO BID 01/16/19 [History] Warfarin Sodium [Coumadin] 5 mg PO HS 06/28/19 [History] Albuterol Sulfate [Ventolin HFA] 1 - 2 puff INHALATION RT-Q6H PRN 08/07/19 [History] Loratadine [Claritin] 10 mg PO DAILY PRN 08/07/19 [History] Ferrous Sulfate [Iron (65 MG Elemental)] 325 mg PO DAILY #30 tab 08/10/19 [Rx] Budesonide-Formot 160-4.5 Mcg [Symbicort 160-4.5 Mcg Inhaler] 2 puff INHALATION RT-BID #1 puff 09/15/19 [Rx] Pantoprazole [Protonix] 40 mg PO AC-BRKFST #30 tablet.dr 09/15/19 [Rx] Multivitamins, Thera [Multivitamin (formulary)] 1 tab PO DAILY 11/27/19 [History] Aspirin 81 mg PO DAILY 30 Days #30 chew 02/01/20 [Rx] ALPRAZolam [Xanax] 0.5 mg PO BID #10 tab 04/10/20 [Rx] Benzonatate [Tessalon Perles] 100 mg PO BID PRN cap 04/10/20 [Rx] INSULIN ASPART (NovoLOG) [NovoLOG (formulary)] 0 unit SQ ACHS vial 04/10/20 [Rx] INSULIN ASPART (NovoLOG) [NovoLOG (formulary)] 6 unit SQ AC-TID vial 04/10/20 [Rx] Insulin Detemir (Levemir) [Levemir] 30 unit SQ DAILY@0700 syr 04/10/20 [Rx] Ipratropium-Albuterol Nebulize [Duoneb 0.5 mg-3 mg/3 ml Soln] 3 ml INHALATION RT-Q2H PRN ml 04/10/20 [Rx] Ipratropium-Albuterol Nebulize [Duoneb 0.5 mg-3 mg/3 ml Soln] 3 ml INHALATION RT-QID ml 04/10/20 [Rx] Triamcinolone 0.1% Ointment [Kenalog 0.1% Ointment] 1 applic TOPICAL BID applic 04/10/20 [Rx] traMADol HCL 50 mg PO TID PRN #10 tab 04/10/20 [Rx] valACYclovir HCL [Valtrex] 1,000 mg PO BID tablet 04/10/20 [Rx] Metoprolol Tartrate [Lopressor] 100 mg PO BID 30 Days #60 tab 04/11/20 [Rx] NIFEdipine XL [Procardia Xl] 60 mg PO DAILY 30 Days #30 tab 04/11/20 [Rx] Torsemide [Demadex] 40 mg PO DAILY 30 Days #30 tablet 04/11/20 [Rx] hydrALAZINE HCL 50 mg PO TID 30 Days #90 tablet 04/11/20 [Rx] predniSONE 20 mg PO DAILY #12 tab 04/11/20 [Rx] Follow up Appointment(s)/Referral(s): Malika Pruett MD [STAFF PHYSICIAN] - 2 Weeks [facility], [NON-STAFF] - [facility] [NON-STAFF] - Verona Medrano MD [Primary Care Provider] - 1-2 days (Office closed at time of discharge please call TuesdayApril 14 to set up a follow up appointment) Ambulatory/Diagnostic Orders: Basic Metabolic Panel [LAB.AMB] Time Frame: 3 Days, Location: None Selected Magnesium [LAB.AMB] Time Frame: 3 Days, Location: None Selected Patient Instructions/Handouts: Heart Failure (DC), Pneumonia (DC) Activity/Diet/Wound Care/Special Instructions: Activity limited until follow up Continue current heart healthy consistent carb diet, dysphagia 3 chopped with aspiration precautions Continue monitoring blood sugar before meals and at bedtime and treat accordingly with sliding scale and long-acting Follow-up primary care provider upon discharge repeat labs in 2-3 days follow up with pulmonary and nephrology outpatient Discharge Disposition: HOME WITH HOME HEALTH SERVICES
[2020-04-12] MEDS ORDERED: TORSEMIDE 20 MG TAB PO SCH (09:00)
== END 2020-04-11 11:44 | disposition home health service (06) | DRG 177 ==
LOC: EC 18:51 → 3SCARD 04-03 → 4SSUR 04-09 17:40
PROVIDERS: ADMIT Hospitalist; ATTEND Hospitalist
DX: J15.1 Pneumonia due to Pseudomonas (principal); I50.33 Acute on chronic diastolic (congestive) heart failure; J96.21 Acute and chronic respiratory failure with hypoxia; N17.0 Acute kidney failure with tubular necrosis; J44.0 Chronic obstructive pulmonary disease with (acute) lower respiratory infection; J44.1 Chronic obstructive pulmonary disease with (acute) exacerbation; I48.19 Other persistent atrial fibrillation; I13.0 Hypertensive heart and chronic kidney disease with heart failure and stage 1 through stage 4 chronic kidney disease, or unspecified chronic kidney disease; J45.901 Unspecified asthma with (acute) exacerbation; Z68.41 Body mass index [BMI] 40.0-44.9, adult; D68.9 Coagulation defect, unspecified; J98.11 Atelectasis; I27.29 Other secondary pulmonary hypertension; M19.90 Unspecified osteoarthritis, unspecified site; K44.9 Diaphragmatic hernia without obstruction or gangrene; D64.9 Anemia, unspecified; E61.1 Iron deficiency; J20.8 Acute bronchitis due to other specified organisms; Z20.822 Contact with and (suspected) exposure to COVID-19; K21.9 Gastro-esophageal reflux disease without esophagitis; E03.9 Hypothyroidism, unspecified; E11.22 Type 2 diabetes mellitus with diabetic chronic kidney disease; E11.65 Type 2 diabetes mellitus with hyperglycemia; E66.9 Obesity, unspecified; E78.5 Hyperlipidemia, unspecified; E87.5 Hyperkalemia; F41.0 Panic disorder [episodic paroxysmal anxiety]; H91.90 Unspecified hearing loss, unspecified ear; I07.1 Rheumatic tricuspid insufficiency; N18.30 Chronic kidney disease, stage 3 unspecified; T38.0X5A Adverse effect of glucocorticoids and synthetic analogues, initial encounter; T45.515A Adverse effect of anticoagulants, initial encounter; Y95 Nosocomial condition; Z90.710 Acquired absence of both cervix and uterus; Z79.899 Other long term (current) drug therapy; Z79.890 Hormone replacement therapy; Z79.83 Long term (current) use of bisphosphonates; Z79.82 Long term (current) use of aspirin; Z79.52 Long term (current) use of systemic steroids; Z79.51 Long term (current) use of inhaled steroids; Z79.4 Long term (current) use of insulin; Z79.01 Long term (current) use of anticoagulants
CPT/HCPCS: 36415; 70450; 71045; 71046; 72125; 74230; 76770; 80048; 80053; 80076; 81001; 82550; 82728; 82947; 83540; 83550; 83735; 83880; 84145; 84484; 85025; 85610; 85730; 87040; 87635; 93005; 93306; 94640; 94760; 96361; 96365; 96366; 96367; 96375; 96376; 99285